=== PATIENT | female | born 1955 | race Caucasian/White ===

== ENCOUNTER → 2016-07-15 | Outpatient (CLI) | payer MEDICARE ==
[~2016-07-15] MED LIST: /CIPR75TA OR; /DULO30CA; /OMEP10CA; /WARF5TA; ACET65TA; AMOX500C OR; ASPI81TA45 OR; BISA10SU2; BISA5TA; CELE100C; CELE100C OR; CHLORTHALIDONE PO; CLAR5CHW; COZA50TA18; COZA50TA18 OR; CYMBALTA PO; DULO20CA PO; FAMO10TA5; FLONASE; FOLI1TAB; FOLI1TAB OR; GLIP5TAB2 OR; GLUC500T OR; IBUP600T PO; INSULANT SC; JANUVIA PO; LANTUS INSULIN SC; LIPI20TA OR; LISI10TA4; LORATADINE PO; MILKSUS; MUCINEX; OMEP20TA7 PO; PERC5TAB8; PERC7.5T8; PRED20TA; PRIL20CA; PROV90AE IN; TRAM50TA2; TRAM50TA2 OR; VICO5TAB OR; VICODIN PO; [UNRECOGNIZED DRUG - OTHER]; [UNRECOGNIZED DRUG - OTHER] PO; [UNRECOGNIZED DRUG - OTHER] PO
--- NOTE | 2016-07-16 05:24 | REP ---
Clinical: Mass. Comparison: 05/17/2008. Findings: Lung rodriguez demonstrate small subpleural areas of presumed chronic scarring primarily noted in the lateral right middle lobe and posterior basilar lower lobes along with mild bronchiectasis. No further significant consolidation, nodule or mass lesion appreciated. No pleural effusion/reaction or pneumothorax. The heart appears to be upper limits of normal and demonstrates atherosclerotic changes to the coronary arteries and thoracic aorta without aortic aneurysm or pericardial effusion. No axillary, hilar, or mediastinal adenopathy. Visualized portions of the thyroid gland are unremarkable. Bilateral thoracic inlet appear relatively normal. Surrounding musculoskeletal structures demonstrate age-related changes without focal osseous abnormality. Limited evaluation of the upper abdomen suggests prior splenectomy and 5 cm regenerative splenule less likely representing pancreatic tail mass. Impression: 1. Mild scattered chronic subpleural changes without acute mediastinal or pleuroparenchymal process. 2. Heart is upper limits of normal and demonstrates moderate atherosclerotic changes to the coronary arteries and thoracic aorta. 3. 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 Signed by Andrés Feliciano MD 07/16/2016 05:16 A
== END ==
LOC: M RAD 14:21
PROVIDERS: ATTEND Physician Assistant Medical
DX: R91.8 Other nonspecific abnormal finding of lung field (principal)

== ENCOUNTER → 2016-09-19 | Outpatient (CLI) | payer MEDICARE ==
[~2016-09-19] MED LIST changes: +ALBU17IN2 INH; +ASPI81TA85 PO; +CRES20TA PO; +GLIP10TA6 PO; +HUMA100I3 SC; +JARD1TAB PO; +METO12TA PO; +OMEP20TA PO; +TOUJ1.2I SC; +TRAM50TA2 PO
[2016-09-19 09:40] LABS: BASO % 0.4 % (0.0-1.0); EOS # 0.1 K/mm3 (0.0-0.50); EOS % 0.8 % (0.0-3.0); LYMPH # 2.7 K/mm3 (1.5-4.5); LYMPH % 20.8 % (24.0-44.0); MEAN CORPUSCULAR HEMOGLOBIN 31.7 pg (27.0-33.0); MEAN CORPUSCULAR HGB CONC 31.7 g/dl (32.0-36.5); MEAN CORPUSCULAR VOLUME 100.2 fl (80.0-96.0); MONO # 0.6 K/mm3 (0.0-0.8); MONO % 4.9 % (0.0-5.0); NEUTROPHILS # 9.4 K/mm3 (1.8-7.7); NEUTROPHILS % 71.3 % (36.0-66.0); RED CELL DISTRIBUTION WIDTH 14.4 % (11.5-14.5); WHITE BLOOD COUNT 13.1 K/mm3 (4.0-10.0)
[2016-09-19 09:50] LABS: ALBUMIN 3.5 GM/DL (3.2-5.2); ALBUMIN/GLOBULIN RATIO 1.06 (1.00-1.93); BILIRUBIN,TOTAL 0.6 MG/DL (0.2-1.0); CALCIUM LEVEL 8.7 MG/DL (8.8-10.2); CREATININE FOR GFR 1.12 MG/DL (0.55-1.02); GLOMERULAR FILTRATION RATE 52.5 (>45); POTASSIUM SERUM 4.3 MEQ/L (3.5-5.1); TOTAL PROTEIN 6.8 GM/DL (6.4-8.2)
== END ==
LOC: M LAB 08:42
PROVIDERS: ATTEND Physician Assistant Medical
DX: E11.9 Type 2 diabetes mellitus without complications (principal)

== ENCOUNTER → 2016-09-20 | Outpatient (CLI) | payer MEDICARE ==
[2016-09-20 10:59] LABS: MEAN CORPUSCULAR HEMOGLOBIN 31.8 pg (27.0-33.0); MEAN CORPUSCULAR HGB CONC 31.8 g/dl (32.0-36.5); MEAN CORPUSCULAR VOLUME 100.2 fl (80.0-96.0); RED CELL DISTRIBUTION WIDTH 14.5 % (11.5-14.5)
[2016-09-20 11:04] LABS: INR 0.94
--- NOTE | 2016-09-20 11:08 | REP ---
Clinical: Preoperative assessment. Diabetes . Comparison: 04/13/2015 . Technique: PA and lateral. Findings: The mediastinum and cardiac silhouette are normal. The lung rodriguez are clear and without acute consolidation, effusion, or pneumothorax. The skeletal structures are intact and normal. Impression: 1. No acute cardiopulmonary process. Signed by Andrés Feliciano MD 09/20/2016 10:59 A
[2016-09-20 11:25] LABS: ALBUMIN 3.7 GM/DL (3.2-5.2); ALBUMIN/GLOBULIN RATIO 1.12 (1.00-1.93); BILIRUBIN,TOTAL 0.6 MG/DL (0.2-1.0); CALCIUM LEVEL 8.6 MG/DL (8.8-10.2); CREATININE FOR GFR 1.14 MG/DL (0.55-1.02); GLOMERULAR FILTRATION RATE 51.4 (>45); POTASSIUM SERUM 4.1 MEQ/L (3.5-5.1)
--- NOTE | 2016-09-20 12:19 | ECGEPIP ---
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
== END ==
LOC: M ADMPAT 09:02
PROVIDERS: ATTEND Orthopaedic Surgery
DX: Z01.818 Encounter for other preprocedural examination (principal); M16.11 Unilateral primary osteoarthritis, right hip; E11.9 Type 2 diabetes mellitus without complications; Z79.01 Long term (current) use of anticoagulants; Z79.899 Other long term (current) drug therapy

== ENCOUNTER 2016-10-04 05:51 | Inpatient (IN) | payer MEDICARE ==
[2016-09-20 10:02] VITALS: BP 132/70
--- NOTE | 2016-09-26 18:32 | HPE ---
DATE OF ADMISSION: 10/04/2016 HISTORY OF PRESENT ILLNESS: This is a pleasant female with continuing symptomatic right hip osteoarthritis. She has consented for right total hip arthroplasty per Dr. Abelardo sherman. Medical optimization per Barbie Meier. X-rays are consistent with advanced osteoarthritis. No known drug allergies. MEDICATIONS LIST: Includes: - tramadol HCL 50 mg - [place] 05/325 mg - omeprazole - metoprolol - Cymbalta - Humalog quick pen 100 units per milliliter - Crestor 20 mg - Toujeo SoloStar 300 unit per milliliter -glipizide - jardiance - aspirin adult low dose 81 mg. MEDICAL PROBLEM LIST: Includes symptomatic right hip osteoarthritis, obesity, anxiety, depression, thyroid disease, type 2 diabetes. PAST SURGICAL HISTORY: Positive for section. Knee replacement. Total hysterectomy. FAMILY HISTORY: Positive for heart disease. Father at 61 due to heart attack. Mother diabetes and arthritis. SOCIAL HISTORY: The patient is a former smoker, quit three a half years ago. Denies ethanol intake or illicit drugs. REVIEW OF SYSTEMS: She denies chest pain, shortness breath, dyspnea on exertion, fever, chills, malaise, upper respiratory or urinary tract symptoms. PHYSICAL EXAMINATION: VITALS: Weight 204.8. Height 5' 1 1/4". Temperature 96.6. Pulse 76, respirations 20, BP 122/60. GENERAL: This is a pleasant obese white female in no acute distress. She is alert and oriented times three. Mood and affect are appropriate. She is ambulating slow steady without overt antalgia she does have a cane. Right hip range of motion is limited and irritable through internal and external hip range of motion. Normocephalic. NECK: Supple. Negative jugular venous distension (JVD) or bruits. LUNGS: Clear to auscultation. CHEST: Rises symmetrically. Regular rate and rhythm. ABDOMEN: Soft, nontender times four. EXTREMITIES: Lower extremities were inspected. Benign noninfectious looking. SKIN: Intact. EKG as read by Dr. Garcia shows sinus rhythm, possible inferior myocardial infarction, probably old borderline precordial voltage stable read by Dr. Garcia 09/20/2016. Chest x-ray date of exam 09/20/2016, read by Dr. Feliciano. No acute cardiopulmonary process. LABORATORY DATA: Urinalysis (UA) showed 2+ protein 3+, glucose 2+ blood, microscopic AUT 2+ bacteria. CBC white count was 11.0, MCV 100.2, MCHC 31.8. BUN 24, creatinine 1.14, anion gap 7, calcium 8.6. Urine culture showed greater than 100,000 CFU per milliliter Citrobacter freundii and the patient has been put on Bactrim per her primary care provider. Nasal and sinus culture showed normal flores present. IMPRESSION: 1. Symptomatic right hip osteoarthritis. 2. Patient consented for right total hip arthroplasty per Dr. Abelardo sherman. 3. Medical optimization per Whitney Meier and Dr. Jeremy Cerda. I am still awaiting documentation. 4. call specialist OR 2 grams IV Kefzol in OR. 5. SCD and TEDs in OR. 6. Patient will complete course of antibiotics for urinary tract infection (UTI) as prescribed by her primary care physician (PCP). My preceptor for this patient encounter was Dr. Abelardo Sherman. The preceptor was physically present in the building during the encounter and was fully available. As needed, all aspects of the patient interview, examination, medical decision making process, and medical care plan development were reviewed and approved by the preceptor. The preceptor is aware and concurs with the plan as stated in the body of this note and will attest to such by his/her cosignature.
[~2016-10-04] VITALS: Ht 152.4 cm; Wt 92.5 kg
[2016-10-04] MEDS ORDERED: LR 1,000 ML IV ONE (06:00)
[2016-10-04] MEDS ORDERED: LIDOCAINE 1% MDV 20ML VIAL SC ONE (06:00)
[2016-10-04] MEDS ORDERED: LR 1,000 ML IV SCH ×2 (06:15→10:00)
[2016-10-04] MEDS ORDERED: TRANEXAMIC ACID 100 MG/ML 10ML VIAL As Ordered ONE (06:16)
[2016-10-04] MEDS ORDERED: BUPIVACAINE HCL 0.25% 30 ML VIAL As Ordered ONE (06:16)
[2016-10-04] MEDS ORDERED: ceFAZolin 1GM INJ (J0690) As Ordered ONE (06:17)
[2016-10-04] MEDS ORDERED: EPINEPHrine INJ 1 MG/ML 1ML AMP As Ordered ONE (06:17)
[2016-10-04] MEDS ORDERED: COUM1TAB17 PO (06:38)
[2016-10-04] MEDS ORDERED: PROPOFOL 200 MG/20 ML VIAL As Ordered ONE (07:05)
[2016-10-04] MEDS ORDERED: fentaNYL 100 MCG/2 ML INJECTION (J3010) As Ordered ONE ×2 (07:05→07:49)
[2016-10-04] MEDS ORDERED: MIDAZOLAM INJ 2 MG/2 ML VIAL (J2250) As Ordered ONE (07:05)
[2016-10-04] MEDS ORDERED: LIDOCAINE 2% INJ 100 MG/5 ML SDV (FOR ANES.) As Ordered ONE (07:05)
[2016-10-04] MEDS ORDERED: ePHEDrine SULFATE 25 MG/5 ML(5MG/ML) SYRINGE As Ordered ONE ×3 (08:13→08:58)
[2016-10-04] MEDS ORDERED: GLYCOPYRROLATE INJ 0.2 MG/ML 2 ML VIAL As Ordered ONE (08:13)
[2016-10-04] MEDS ORDERED: PHENYLephrine HCL 500 MCG/5 ML (100MCG/ML) SYRINGE (J2370) As Ordered ONE (08:14)
[2016-10-04] MEDS ORDERED: GLUCAGON FOR INJ 1 MG VIAL (J1610) SC PRN (10:00)
[2016-10-04] MEDS ORDERED: fentaNYL 100 MCG/2 ML INJECTION (J3010) IV PRN (10:00)
[2016-10-04] MEDS: NS 1,000 ML IV SCH ×2 (10:00→21:13)
[2016-10-04] MEDS ORDERED: FLEET ENEMA PR PRN (10:00)
[2016-10-04] MEDS ORDERED: GLUCOSE 4 GM CHEW TABLET PO PRN (10:00)
[2016-10-04] MEDS ORDERED: ONDANSETRON 4MG/2ML VIAL (J2405) IV PRN ×2 (10:00)
[2016-10-04] MEDS ORDERED: PERCOCET 5MG/325MG TAB PO PRN (10:00)
[2016-10-04] MEDS ORDERED: DEXTROSE 50% 50 ML SYRINGE IV PRN (10:00)
--- NOTE | 2016-10-04 10:13 | IPN ---
DATE: 10/04/2016 Patient seen and examined this morning. She wishes to go ahead with a right total hip arthroplasty. She is having severe pain. She understands the nature of procedure, the risks of bleeding, infection, damage to nerves, vessels, persistent pain, wear loosening, dislocation, leg length inequality, blood clots, medical problems, and she wishes to proceed.
[2016-10-04] MEDS ORDERED: MORPHINE 1MG/ML IN 0.9% NACL 100ML IV BAG IV PRN (10:15)
[2016-10-04] MEDS ORDERED: diphenhydrAMINE INJ 50MG/ML VIAL (J1200) IV PRN (10:15)
[2016-10-04] MEDS ORDERED: NALOXONE INJ 0.4 MG/1 ML VIAL (J2310) IV PRN (10:15)
[2016-10-04] MEDS ORDERED: PATIENT IS CURRENTLY ON AN ON-Q PAIN BUSTER PAIN RELIEF SYSTEM XX SCH (10:15)
[2016-10-04] MEDS ORDERED: EPIDURAL/PCA KEYS XX PRN (10:15)
[2016-10-04] MEDS ORDERED: NALBUPHINE HCL 10 MG/ML AMP (J2300) IV PRN (10:15)
[2016-10-04 10:21] LABS: BASO % 0.4 % (0.0-1.0); EOS # 0.2 K/mm3 (0.0-0.50); EOS % 1.5 % (0.0-3.0); LARGE UNSTAINED CELL # 0.2 K/mm3 (0.0-0.4); LARGE UNSTAINED CELL % 1.5 % (0.0-4.0); LYMPH # 2.7 K/mm3 (1.5-4.5); MEAN CORPUSCULAR HEMOGLOBIN 31.7 pg (27.0-33.0); MEAN CORPUSCULAR HGB CONC 32.4 g/dl (32.0-36.5); MEAN CORPUSCULAR VOLUME 97.7 fl (80.0-96.0); MONO # 0.7 K/mm3 (0.0-0.8); MONO % 5.9 % (0.0-5.0); NEUTROPHILS # 8.5 K/mm3 (1.8-7.7); NEUTROPHILS % 68.8 % (36.0-66.0); PLATELET COUNT, AUTOMATED 348 k/mm3 (150-450); RED CELL DISTRIBUTION WIDTH 14.4 % (11.5-14.5); WHITE BLOOD COUNT 12.4 K/mm3 (4.0-10.0)
[2016-10-04 11:00] VITALS: BP 145/67
[2016-10-04 11:14] LABS: ALBUMIN 3.1 GM/DL (3.2-5.2); ALBUMIN/GLOBULIN RATIO 1.11 (1.00-1.93); BILIRUBIN,TOTAL 0.4 MG/DL (0.2-1.0); CALCIUM LEVEL 8.5 MG/DL (8.8-10.2); CREATININE FOR GFR 1.26 MG/DL (0.55-1.02); GLOMERULAR FILTRATION RATE 45.8 (>45); POTASSIUM SERUM 4.2 MEQ/L (3.5-5.1); TOTAL PROTEIN 5.9 GM/DL (6.4-8.2)
[2016-10-04 11:30] VITALS: BP 161/71
[2016-10-04] MEDS: HumaLOG INSULIN (NovoLOG) PER UNIT SC SCH ×3 (12:00→21:03)
[2016-10-04 12:30] VITALS: BP 130/59
--- NOTE | 2016-10-04 13:05 | CR.PDOC ---
[facility] Consultation Consultation DATE OF CONSULTATION: 10/04/16 PRIMARY CARE PHYSICIAN: EN Calvillo REFERRING PROVIDER: Nav Cuello ATTENDING PHYSICIAN: Dr. Chana Ellis REASON FOR CONSULTATION/CHIEF COMPLAINT: Status-post R total Hip Arthroplasty HISTORY OF PRESENT ILLNESS: This is a 61 year old female with a history of advanced osteoarthritis, hypertension, obesity, anxiety, depression, hypothyroidism and IDDM who is presenting after right total hip arthroplasty today 10/04/16 post operative day # 0. Her surgery was performed this morning by Dr. Abelardo Montanez and lasted until ~ 0945. She states she feels "groggy" and tired in the PACU but denies headache, dizziness, abdominal pain, nausea, vomiting, chest pain, shortness of breath, cough, runny nose, sore throat. Her only pain is her right hip which she rates as 4-5/10 in severity. There is no numbness or weakness in any of her extremities, swelling in her hands or feet or pain anywhere else. She offers no other acute complaints. Of note, she was treated for an asymptomatic UTI 2 weeks ago. Urine culture on 09/20/16 grew Citrobacter Freundii, but she denies any present back pain, dysuria, hematuria or diarrhea. HOME MEDICATIONS (see below for dosage and schedule): levothyroxine (recently increased to 175 mg PO daily) tramadol [place] 05/325mg omeprazole metoprolol Cymbalta Humalog Crestor Toujeo SoloStar glipizide jardiance ALLERGIES: Denies allergies to medicine, food or environment PAST MEDICAL HISTORY: R hip osteoarthritis R knee osteoarthritis hypertension obesity anxiety depression hypothyroidism insulin dependent type 2 diabetes mellitus Reportedly up to date on PAP smears, colonoscopies and mammograms Uses CPAP at home but is unsure of the settings. Does not use home supplemental oxygen. PAST SURGICAL HISTORY: R knee arthroplasty x1 total hysterectomy SOCIAL HISTORY: Former smoker with about a 60 pack x year history. Patient quit about 3.5 years ago. Reports history of ethanol socially but denies current EtOH use. Reports remote marijuana use but denies any illicit drug use recently. She is and lives alone with one kitten as a pet. She has had 3 pregnancies and has 3 adult children: two girls and one boy although none of them live locally. FAMILY HISTORY: Father: CAD. from [place]. Mother: Living but does not have frequent contact with patient. History of DM as well. ROS: All ROS negative except for those as stated above. PHYSICAL EXAMINATION: VS: T:97.5F BP:155/65 RR:20 P:60 O2 Saturation: 94% room air General: Pleasant, morbidly obese female lying in bed. Is calm and cooperative. In NAD. AAO x 3. Eating a popsicle. HEENT: Head: normocephalic, atraumatic. Ears: grossly normal hearing bilaterally. Eyes: sclera are nonicteric. Nose: No external lesions. Neck: Supple. No thyromegaly. No cervical LAD bilaterally. Respiratory: Clear to auscultation bilaterally with no wheezes, rales, or rhonchi. Chest: Symmetrical chest rise bilaterally. Cardiovascular: Sinus Bradycardia with no murmurs, rubs or gallops. Heart rate on monitor is showing 50 bpm. Abdomen: Obese. Soft, nontender, nondistended, no hepatosplenomegaly appreciated. Bowel sounds present. Extremities: No pedal edema Musculoskeletal: No drainage at bandage site of surgical site on R hip noted. Did not examine R hip with open bandage as patient just had operation. Able to wiggle her toes bilaterally. Good capillary refill in her toes. Neurological: No focal neurologic deficits appreciated bilaterally. Sensation grossly intact at the feet. Integumentary: skin free from rashes, lesions, abrasions Vascular: +2 radial and dorsalis pedis pulses palpable bilaterally. LABORATORY DATA: 10/04/16 CBC and CMP have been reviewed. CBC remarkable for WBC high at 12.4 RBC low at 3.89 Neut high at 68.8 lymph low at 22.0 [place] high at 5.9 CMP remarkable for Creatinine high at 1.26 Hgb A1c high at 7.4 Ca low at 8.5 albumin low at 3.1 total protein low at 5.9 TSH high at 6.230 MICROBIOLOGY: Urine Cx 09/20/16: Grew Citrobacter Freundii Micro Respiratory Specimen: normal flores ELECTROCARDIOGRAM 09/20/16 Sinus Rhythm. POSSIBLE INFERIOR MYOCARDIAL INFARCTION, PROBABLY OLD [facility] PRECORDIAL VOLTAGE STABLE C/W 04/13/15 Personally reviewed. RADIOLOGY: 09/20/16 CXR shows no acute cardiopulmonary process. ASSESSMENT: This is a 61 yo F who is presenting status-post R total hip arthroplasty post- operative day #0. The hospitalist service has been consulted for medical management of her chronic medical problems and to monitor her through recovery. PLAN: Status-post R Total Hip Arthroplasty for R Hip Osteoarthritis: Management with PT/OT, pain control, bowel regimen, and DVT ppx per primary team. Will continue to monitor for interventions as necessary. Will encourage incentive spirometer to prevent post-op pneumonia and atelectasis. HTN: Currently controlled on home medications. Resume home medications except for pain medications. Patient receiving IVF at this time. Will hold off on HTN medications until IVF are completed and BP is stable without IVF. We will make sure patient is tolerating diet prior to restarting antihypertensive meds. Will resume metoprolol when ready with hold parameters as specified: HR less than 70 and pressure less than 120 after BP stable and tolerating PO. Will evaluate/monitor for signs of LVH. Anxiety/Depression: continue cymbalta Hypothyroidism: TSH high at 6.230. May obtain Free T4 to determine if dosage of levothyroxine needs to be changed from 175 mg. Can continue levothyroxine on current dose for now. Insulin dependent type 2 diabetes mellitus: start ISS at AC and HS. Hold other diabetic medications for now. Continue rosuvastatin. Obesity: complicating management. Continue rosuvastatin. May obtain lipid panel. Continue home medications as indicated. DVT ppx: as per primary team. Immunizations as per protocol. CODE STATUS: DNR/DNI per patient. Has not signed MOLST. My preceptor for this patient encounter was Dr. Chana Ellis, and was physically present in the building during the encounter and was fully available. As needed, all aspects of the patient interview, examination, medical decision making process, and medical care plan development were reviewed and approved by the preceptor. Preceptor is aware and concurs with the plan as stated in the body of this note and will attest to such by his/her cosignature. Vital Signs/I&O Vital Signs Date Time Temp Pulse Resp B/P (MAP) Pulse Ox O2 Delivery O2 Flow Rate FiO2 10/04/16 12:30 97.1 52 16 130/59 (82) 92 Nasal Cannula 2.0 Laboratory Data Labs 24H Laboratory Tests 2 10/04/16 10:11: Bedside Glucose (Misc Panel) 75L 10/04/16 10:12: White Blood Count 12.4H, Red Blood Count 3.89L, Hemoglobin 12.3, Hematocrit 38.0 , Mean Corpuscular Volume 97.7H, Mean Corpuscular Hemoglobin 31.7, Mean Corpuscular Hemoglobin Concent 32.4, Red Cell Distribution Width 14.4, Platelet Count 348, Neutrophils (%) (Auto) 68.8H, Lymphocytes (%) (Auto) 22.0L, Monocytes (%) (Auto) 5.9H, Eosinophils (%) (Auto) 1.5, Basophils (%) (Auto) 0.4 , Neutrophils # (Auto) 8.5H, Lymphocytes # (Auto) 2.7, Monocytes # (Auto) 0.7, Eosinophils # (Auto) 0.2, Basophils # (Auto) 0.0, Large Unclassified Cells % 1.5 , Large Unclassified Cells # 0.2, Anion Gap 6L, Glomerular Filtration Rate 45.8 , Estimated Mean Plasma Glucose 166H, Hemoglobin A1c 7.4H, Blood Urea Nitrogen 17, Creatinine 1.26H, Sodium Level 144, Potassium Level 4.2, Chloride Level 107 , Carbon Dioxide Level 31, Calcium Level 8.5L, Aspartate Amino Transf (AST/SGOT ) 21, Alanine Aminotransferase (ALT/SGPT) 24, Alkaline Phosphatase 70, Total Bilirubin 0.4, Triglycerides Level 79, LDL Cholesterol 55.2, Total Protein 5.9L , Albumin 3.1L, Albumin/Globulin Ratio 1.11, Total Cholesterol 106, Non-HDL Cholesterol (LDL + VLDL) 71, Total HDL Cholesterol 35L, Cholesterol/HDL Ratio 3.028, Thyroid Stimulating Hormone (TSH) 6.230H 10/04/16 11:25: Bedside Glucose (Misc Panel) 68L CBC/BMP Laboratory Tests 10/04/16 06:04 10/04/16 10:12 Red Blood Count 3.89 L, Mean Corpuscular Volume 97.7 H, Mean Corpuscular Hemoglobin 31.7, Mean Corpuscular Hemoglobin Concent 32.4, Red Cell Distribution Width 14.4, Neutrophils (%) (Auto) 68.8 H, Lymphocytes (%) (Auto) 22.0 L, Monocytes (%) (Auto) 5.9 H, Eosinophils (%) (Auto) 1.5, Basophils (%) ( Auto) 0.4, Neutrophils # (Auto) 8.5 H, Lymphocytes # (Auto) 2.7, Monocytes # ( Auto) 0.7, Eosinophils # (Auto) 0.2, Basophils # (Auto) 0.0, Calcium Level 8.5 L , Aspartate Amino Transf (AST/SGOT) 21, Alanine Aminotransferase (ALT/SGPT) 24, Alkaline Phosphatase 70, Total Bilirubin 0.4, Triglycerides Level 79, LDL Cholesterol 55.2, Total Protein 5.9 L, Albumin 3.1 L Allergies Coded Allergies: No Known Drug Allergy (Verified Allergy, Unknown, 09/20/16) Home Medications Scheduled (Calvin Navarro) 300 Unit/Ml Inj, 70 UNIT SC BID, (Reported) Aspirin (Aspir-81) 81 Mg Tab, 81 MG PO DAILY, #30 (Reported) Empagliflozin (Jardiance) 10 Mg Tab, 10 MG PO DAILY, (Reported) Glipizide (Glipizide) 10 Mg Tab, 20 MG PO BID, (Reported) Insulin Human Lispro (Humalog) 100 Unit/Ml Inj, 45 UNITS SC TID, (Reported) Metoprolol Tartrate (Metoprolol Tartrate) 25 Mg Tab, 25 MG PO DAILY for 30 Days , #30 Omeprazole (Omeprazole) 20 Mg Tab, 20 MG PO DAILY, (Reported) Rosuvastatin Calcium (Crestor) 20 Mg Tab, 20 MG PO DAILY, (Reported) Warfarin Sod (Coumadin) 5 Mg Tab, 5 MG PO ONCE, (Reported) [Cymbalta] 20 TAB, 20 MG PO BID, (Reported) Scheduled PRN Albuterol Sulfate (Proventil Hfa) 167 Puff/6.7 Gm Aers, 2 PUFFS INH BIDP PRN for SHORTNESS OF BREATH, (Reported) Tramadol HCl (Tramadol HCl) 50 Mg Tab, 50 MG PO BID PRN for PAIN, (Reported) ARLEEN YODERME-1 Oct 04, 2016 13:04
[2016-10-04 13:30] VITALS: BP 115/53
[2016-10-04 14:30] VITALS: BP 129/59
[2016-10-04] MEDS ORDERED: WARFARIN SOD 5 MG TAB PO SCH (17:00)
[2016-10-04] MEDS ORDERED: METO12TA PO (18:49)
[2016-10-04] MEDS ORDERED: ALBUTEROL 90 MCG/ACT 8GM HFA INHALER INH PRN (19:15)
[2016-10-04] MEDS: ROSUVASTATIN 10 MG TAB (CRESTOR) PO SCH (21:01)
[2016-10-04] MEDS: OMEPRAZOLE 20 MG CAP PO SCH (21:02)
--- NOTE | 2016-10-04 21:06 | RO ---
DATE OF PROCEDURE: 10/04/2016 PREOPERATIVE DIAGNOSIS: Right hip osteoarthritis. POSTOPERATIVE DIAGNOSIS: Right hip osteoarthritis. PROCEDURE: Right total hip arthroplasty using a size 5 [place] standard offset with a 50 cup, 32 +1 ball. SURGEON: Dr. Abelardo Montanez MANAGER OF TRANSPORTATION: Nav Cuello ANESTHESIA: Spinal. ESTIMATED BLOOD LOSS: 200 mL. COMPLICATIONS: None. INDICATIONS: This is a 61-year-old obese woman who has had gradually worsening right hip pain that has been refractory to conservative management. She wished to go ahead with surgical treatment. She understood the nature of the procedure, the risks of bleeding, infection, damage to nerves, vessels, persistent pain, wear, loosening, dislocation, blood clots, medical problems, leg length inequality, among others. DESCRIPTION OF PROCEDURE: The patient was taken to operating room, placed in the supine position after spinal anesthesia was induced. We then turned her in the left lateral decubitus position on the [place] positioner in the usual fashion. We prepped and draped the right hip in the usual fashion. A time-out was performed. I then created a longitudinal incision over the lateral aspect the hip, controlled hemostasis with cautery and incised the fascia scarlett with the cautery and then exposed the abductors, which I divided the anterior 40% or so of the abductors off the anterior aspect of the femur and dissected down to the femoral neck and then split the labrum. We externally rotated the femur as we made this exposure. We were able to dislocate the hip without much difficulty with the engineer third assistant's help and put the leg in the bag. I used a canal initiating reamer, followed by the canal finding reamer and the lateralizing reamer and then sequentially reamed up to a size 5, which was consistent with our preoperative templating and had excellent fit with this reamer. I then cut the neck about a fingerbreadth up or less from the lesser trochanter and removed the ball. We then directed our attention to the acetabulum. Anterior and posterior retractors were placed. I removed the labrum and soft tissue from around the acetabulum and then sequentially reamed starting with a 43 and reamed up to a 49. I medialized it some and got good bleeding bone and good concentric reaming. I did remove some anterior osteophytes. Overall very pleased with this. I decided not to go any higher because I was concerned about the thickness of the anterior wall if I were to enlarge it. The wound and cup were irrigated. I then inserted the actual size 50 cup, impacted it in place with the alignment guide. It was in the appropriate amount of horizontal tilt and anteversion. We made sure it was well seated. I then placed the 32 x 50 liner, impacted this in place and made sure this was well seated. Irrigation was then performed. I then prepared the femur, and I was able to broach up to a size 5, which had an excellent fit. I did some trialing off this with the +1 and the +5 neck, standard offset and both had excellent stability. The 5 was a little tight in extension. I was able to minimally shuck the one in full extension and she had excellent stability in external rotation and extension and flexion internal rotation. Her thigh did impinge against her pannus at about 90 degrees. There were no remaining osteophytes that were impinging. Overall, I was very pleased with the position and stability of the components. I then removed the trial components, irrigated copiously, impacted the size 5 [place] stem, standard offset, seated down nicely and dried the taper, put the trial ball on again, the 1 and the 5 and decided to go with the 1. So the +1, 32 ball was impacted over a dry taper, and we reduced the hip with the engineer third assistant's help. I put the hip through range of motion. Excellent stability was noted. I irrigated copiously, closed the deep layer with #1 Vicryl, placed the TXA solution, repaired the abductor with #1 Vicryl suture, with a couple being placed through the bone and excellent repair was noted. I then repaired the fascia scarlett with interrupted #1 Vicryl suture and then the engineer third assistant and I closed it with a Stratafix suture, working in opposite directions. Watertight closure was performed. I irrigated copiously, closed the subcu with #2-0 Vicryl, skin with denton. I then inserted the PainBuster catheter just anterior to the wound and down along the neck. A little bit of blood from the joint came out, so I was satisfied with the position of this and fed in the catheter without difficulty. We primed it with 10 mL of Marcaine and then hooked it up and attached the skin in the usual fashion. Sterile dressing was applied. She was taken to recovery room in stable condition. There were no known complications. The plan will be routine postop. The engineer third assistant was instrumental in holding retractors and assisting in reducing and dislocating the hip, and assisting in wound closure.
[2016-10-04] MEDS: DULoxetine 20 MG CAP (CYMBALTA) PO SCH (21:13)
[2016-10-04 22:00] VITALS: BP 155/74
[2016-10-05] VITALS (7 sets, daily range): BP systolic 119–140; BP diastolic 53–66
[2016-10-05 06:10] LABS: MEAN CORPUSCULAR HEMOGLOBIN 31.4 pg (27.0-33.0); MEAN CORPUSCULAR HGB CONC 31.4 g/dl (32.0-36.5); MEAN CORPUSCULAR VOLUME 99.9 fl (80.0-96.0); RED CELL DISTRIBUTION WIDTH 14.3 % (11.5-14.5); WHITE BLOOD COUNT 19.5 K/mm3 (4.0-10.0)
[2016-10-05 06:17] LABS: INR 1.1
[2016-10-05] MEDS ORDERED: ONDANSETRON 4 MG TAB (S0181) PO PRN (07:45)
[2016-10-05] MEDS ORDERED: PERCOCET 5MG/325MG TAB PO PRN ×2 (07:45)
--- NOTE | 2016-10-05 08:33 | REP ---
Chest one-view HISTORY: Leukocytosis Comparison: 09/20/2016 The lungs are clear. The heart is normal in size. The pulmonary vasculature is normal in appearance. Impression: No acute disease. Signed by Gael Russell MD 10/05/2016 08:26 A
[2016-10-05 08:50] LABS: FREE T4 0.89 NG/DL (0.76-1.46)
[2016-10-05] MEDS: DULoxetine 20 MG CAP (CYMBALTA) PO SCH ×2 (09:00→21:13)
--- NOTE | 2016-10-05 09:41 | REP ---
AP/LATERAL RIGHT HIP, TWO VIEWS: HISTORY: Hip replacement. The patient is status post right total hip replacement. There is no acute fracture or dislocation. Surgical denton are present in the overlying soft tissue. IMPRESSION: The patient is status post right total hip replacement. There is anatomic alignment. Signed by Gael Russell MD 10/05/2016 09:47 A
[2016-10-05] MEDS: HumaLOG INSULIN (NovoLOG) PER UNIT SC SCH ×4 (09:58→21:00)
[2016-10-05] MEDS: MOM 30ML SUSPENSION UDC PO SCH (10:00)
[2016-10-05] MEDS: MIRALAX *UNIT DOSE* 17GM PACKET PO SCH (10:00)
[2016-10-05] MEDS: OMEPRAZOLE 20 MG CAP PO SCH (10:00)
[2016-10-05] MEDS: ROSUVASTATIN 10 MG TAB (CRESTOR) PO SCH (10:01)
[2016-10-05] MEDS: SENOKOT S TAB PO SCH ×2 (10:02→21:13)
[2016-10-05] MEDS: glipiZIDE 10 MG TAB PO SCH ×2 (10:02→21:16)
[2016-10-05] MEDS ORDERED: traMADol 50 MG TAB PO PRN ×2 (12:00)
[2016-10-05] MEDS: ACETAMINOPHEN TAB 650MG DOSE (2X325MG) PO PRN (12:09)
[2016-10-05] MEDS ORDERED: NORCO, ANEXSIA 5/325MG TABLET (HYDROcodone/ACETAMINOPHEN) PO PRN (15:30)
[2016-10-05] MEDS: NORCO, ANEXSIA 5/325MG TABLET (HYDROcodone/ACETAMINOPHEN) PO PRN ×2 (16:55→21:13)
[2016-10-05] MEDS ORDERED: WARFARIN SOD 5 MG TAB PO ONE (17:00)
[2016-10-06] MEDS: LEVOTHYROXINE 0.1 MG TAB (100 MCG) PO SCH (05:59)
[2016-10-06] MEDS: LEVOTHYROXINE 0.075 MG TAB (75 MCG) PO SCH (05:59)
[2016-10-06 06:00] VITALS: BP 140/64
[2016-10-06 06:07] LABS: BASO % 0.2 % (0.0-1.0); EOS # 0.2 K/mm3 (0.0-0.50); EOS % 1.2 % (0.0-3.0); LARGE UNSTAINED CELL # 0.2 K/mm3 (0.0-0.4); LARGE UNSTAINED CELL % 1.2 % (0.0-4.0); LYMPH # 1.7 K/mm3 (1.5-4.5); LYMPH % 9.2 % (24.0-44.0); MEAN CORPUSCULAR HEMOGLOBIN 31.6 pg (27.0-33.0); MEAN CORPUSCULAR HGB CONC 32.5 g/dl (32.0-36.5); MEAN CORPUSCULAR VOLUME 97.2 fl (80.0-96.0); MONO # 0.7 K/mm3 (0.0-0.8); MONO % 4.4 % (0.0-5.0); NEUTROPHILS % 83.8 % (36.0-66.0); PLATELET COUNT, AUTOMATED 285 k/mm3 (150-450); RED CELL DISTRIBUTION WIDTH 14.5 % (11.5-14.5); WHITE BLOOD COUNT 16.7 K/mm3 (4.0-10.0)
[2016-10-06 06:14] LABS: INR 1.26
[2016-10-06] MEDS: ACETAMINOPHEN TAB 650MG DOSE (2X325MG) PO PRN (06:33)
[2016-10-06 06:35] LABS: ANION GAP 7 MEQ/L (8-16); BLOOD UREA NITROGEN 14 MG/DL (7-18); CALCIUM LEVEL 8.5 MG/DL (8.8-10.2); CARBON DIOXIDE LEVEL 29 MEQ/L (21-32); CHLORIDE LEVEL 102 MEQ/L (98-107); CREATININE FOR GFR 0.89 MG/DL (0.55-1.02); GLOMERULAR FILTRATION RATE > 60.0 (>45); GLUCOSE, FASTING 146 MG/DL (80-110); POTASSIUM SERUM 3.8 MEQ/L (3.5-5.1); SODIUM LEVEL 138 MEQ/L (136-145)
[2016-10-06] MEDS: HumaLOG INSULIN (NovoLOG) PER UNIT SC SCH ×4 (07:30→21:00)
[2016-10-06] MEDS: MIRALAX *UNIT DOSE* 17GM PACKET PO SCH (09:00)
[2016-10-06] MEDS: MOM 30ML SUSPENSION UDC PO SCH (09:00)
[2016-10-06] MEDS: ROSUVASTATIN 10 MG TAB (CRESTOR) PO SCH (09:00)
[2016-10-06] MEDS: SENOKOT S TAB PO SCH ×2 (09:00→21:36)
[2016-10-06] MEDS: DULoxetine 20 MG CAP (CYMBALTA) PO SCH ×2 (09:00→21:36)
[2016-10-06] MEDS: glipiZIDE 10 MG TAB PO SCH ×2 (09:00→21:00)
[2016-10-06] MEDS: OMEPRAZOLE 20 MG CAP PO SCH (09:00)
[2016-10-06 14:00] VITALS: BP 149/67
[2016-10-06] MEDS ORDERED: WARFARIN SOD 5 MG TAB PO SCH (17:00)
[2016-10-06 18:07] VITALS: BP 134/76
[2016-10-06 22:00] VITALS: BP 152/64
[2016-10-07] MEDS: ACETAMINOPHEN TAB 650MG DOSE (2X325MG) PO PRN (01:59)
[2016-10-07 02:46] LABS: MEAN CORPUSCULAR HEMOGLOBIN 31.8 pg (27.0-33.0); MEAN CORPUSCULAR VOLUME 96.4 fl (80.0-96.0); RED CELL DISTRIBUTION WIDTH 14.5 % (11.5-14.5); WHITE BLOOD COUNT 16.5 K/mm3 (4.0-10.0)
[2016-10-07 02:52] LABS: INR 1.27
[2016-10-07 03:10] LABS: ALBUMIN 2.7 GM/DL (3.2-5.2); ALBUMIN/GLOBULIN RATIO 0.64 (1.00-1.93); ALKALINE PHOSPHATASE 72 U/L (45-117); ALT/SGPT 19 U/L (12-78); ANION GAP 8 MEQ/L (8-16); AST/SGOT 31 U/L (15-37); BILIRUBIN,TOTAL 1.2 MG/DL (0.2-1.0); BLOOD UREA NITROGEN 14 MG/DL (7-18); CALCIUM LEVEL 9.1 MG/DL (8.8-10.2); CARBON DIOXIDE LEVEL 28 MEQ/L (21-32); CHLORIDE LEVEL 100 MEQ/L (98-107); CREATININE FOR GFR 0.79 MG/DL (0.55-1.02); GLOMERULAR FILTRATION RATE > 60.0 (>45); GLUCOSE, FASTING 97 MG/DL (80-110); POTASSIUM SERUM 3.6 MEQ/L (3.5-5.1); SODIUM LEVEL 136 MEQ/L (136-145); TOTAL PROTEIN 6.9 GM/DL (6.4-8.2)
--- NOTE | 2016-10-07 03:10 | REPUSA ---
CLINICAL HISTORY: Delirium. COMMENTS: AP view of chest reveals no evidence of active pleural or pulmonary parenchymal abnormality. The cardiac silhouette is enlarged. The mediastinum and pulmonary vessels appear normal. Aorta is tor tuous. Degenerative changes are noted in the thoracic spine. IMPRESSION: No evidence of acute pulmonary pathology. Enlarged cardiac silhouette. Tortuous aorta. Thank you for your kind referral of this patient.
[2016-10-07 05:46] LABS: ABG BASE EXCESS -1.6 (-2.0-2.0); ABG HCO3 21.4 MEQ/L (22.0-26.0); ABG PARTIAL PRESSURE CO2 30.7 mmHg (35.0-45.0); ABG PARTIAL PRESSURE O2 73.3 mmHg (75.0-100.0); ABG STANDARD HCO3 23.1 MEQ/L (22.0-26.0); ABG TOTAL CO2 22.4 MEQ/L (23.0-31.0); ABG pH (ARTERIAL) 7.462 UNITS (7.350-7.450)
[2016-10-07] MEDS: LEVOTHYROXINE 0.1 MG TAB (100 MCG) PO SCH (05:48)
[2016-10-07] MEDS: LEVOTHYROXINE 0.075 MG TAB (75 MCG) PO SCH (05:48)
[2016-10-07 06:00] VITALS: BP 166/72
--- NOTE | 2016-10-07 06:30 | REPUSA ---
CLINICAL HISTORY: Delirium. TECHNIQUE: Multiple axial CT images were obtained through the brain without IV contrast material. COMMENTS: There is normal configuration of sella turcica. There are no intra or extra-axial collections. There is no mass effect or midline shift. There is no evidence of hematoma formation. No hydrocephalus is p resent. The ventricles are symmetrical. No abnormal calcifications are present. There is diffuse age-appropriate cerebellar and cerebral atrophy with proportionally dilated ventricl es and cortical sulci. There are bilateral periventricular and subcortical white matter hypolucencies compatible with mild c hronic microvascular disease. Otherwise, no significant focal abnormalities are seen either in the posterior fossa or supratentoria l compartment. IMPRESSION: 1. Age-appropriate cerebellar and cerebral atrophy. 2. Mild chronic microvascular disease. 3. No evidence of acute intracranial pathology. Thank you for your kind referral of this patient.
[2016-10-07] MEDS: HumaLOG INSULIN (NovoLOG) PER UNIT SC SCH ×4 (07:07→20:45)
[2016-10-07] MEDS ORDERED: ENOXAPARIN 40 MG/0.4 ML SYRINGE (J1650) SC ONE (07:45)
[2016-10-07] MEDS: glipiZIDE 10 MG TAB PO SCH ×2 (09:00→20:45)
[2016-10-07] MEDS: MOM 30ML SUSPENSION UDC PO SCH (10:07)
[2016-10-07] MEDS: DULoxetine 20 MG CAP (CYMBALTA) PO SCH ×2 (10:08→20:45)
[2016-10-07] MEDS: ROSUVASTATIN 10 MG TAB (CRESTOR) PO SCH (10:08)
[2016-10-07] MEDS: OMEPRAZOLE 20 MG CAP PO SCH (10:09)
[2016-10-07] MEDS: MIRALAX *UNIT DOSE* 17GM PACKET PO SCH (10:09)
[2016-10-07] MEDS: SENOKOT S TAB PO SCH ×2 (10:09→20:45)
[2016-10-07 14:00] VITALS: BP 168/70
[2016-10-07] MEDS ORDERED: WARFARIN SOD 7.5 MG TAB PO ONE (17:00)
[2016-10-07 22:00] VITALS: BP 137/62
[2016-10-08] MEDS: LEVOTHYROXINE 0.075 MG TAB (75 MCG) PO SCH (05:46)
[2016-10-08] MEDS: LEVOTHYROXINE 0.1 MG TAB (100 MCG) PO SCH (05:46)
[2016-10-08 06:00] VITALS: BP 163/73
[2016-10-08] MEDS ORDERED: LEVO100T5 PO (07:23)
[2016-10-08] MEDS ORDERED: LEVO75TA4 PO (07:23)
[2016-10-08] MEDS: HumaLOG INSULIN (NovoLOG) PER UNIT SC SCH (07:30)
[2016-10-08] MEDS ORDERED: COUM2.5T11 PO (07:34)
[2016-10-08] MEDS ORDERED: ENOXAPARIN 40 MG/0.4 ML SYRINGE (J1650) SC ONE (07:45)
[2016-10-08] MEDS: MIRALAX *UNIT DOSE* 17GM PACKET PO SCH (09:00)
[2016-10-08] MEDS: glipiZIDE 10 MG TAB PO SCH (09:00)
[2016-10-08] MEDS: MOM 30ML SUSPENSION UDC PO SCH (09:15)
[2016-10-08] MEDS: OMEPRAZOLE 20 MG CAP PO SCH (09:18)
[2016-10-08] MEDS: SENOKOT S TAB PO SCH (09:18)
[2016-10-08] MEDS: ROSUVASTATIN 10 MG TAB (CRESTOR) PO SCH (09:18)
[2016-10-08] MEDS: DULoxetine 20 MG CAP (CYMBALTA) PO SCH (10:31)
--- NOTE | 2016-10-10 10:18 | DSES ---
DATE OF ADMISSION: 10/04/2016 DATE OF DISCHARGE: 10/08/2016 DIAGNOSIS: Osteoarthritis right hip. OTHER DIAGNOSES: Hypertension. Anxiety. Depression. Hypothyroidism. Insulin-dependent diabetes as well as obesity. DISCHARGE DIAGNOSIS: Osteoarthritis right hip status post right total hip arthroplasty. OPERATION PERFORMED: Right total hip arthroplasty. HISTORY: This is a pleasant 61-year-old obese female patient with progressively worsening right hip pain and stiffness. She failed to improve with conservative management. She was admitted for elective hip replacement on the right side. HOSPITAL COURSE: The patient was admitted on day of surgery and underwent a right total hip arthroplasty which was uneventful. During the postoperative period, she did have some struggles with physical therapy to obtain the goals to be discharged but ultimately she was able to obtain the goals for discharge through physical therapy. Her pain was controlled. On day of discharge she was doing well, weightbearing as tolerated on the right lower extremity. She will use adjusted dose Coumadin and CONRAD stockings for 30 days postoperative for DVT prophylaxis. She will resume her preoperative medications and diet. She will use oral pain medications for pain control. She was given instructions to include but not limited to wound monitoring, activity limitations. She will follow up in our office in 10-14 days for surgical followup. Please refer to the medical record for further details. KETURAH
== END 2016-10-08 11:10 | disposition home health service (06) | DRG 470 ==
LOC: M OR 05:51 → M MS5PR 11:04
PROVIDERS: ADMIT Orthopaedic Surgery; ATTEND Orthopaedic Surgery
PROC: 0SR904A Replacement of Right Hip Joint with Ceramic on Polyethylene Synthetic Substitute, Uncemented, Open Approach (ICD-10-PCS; principal; 2016-10-04 07:30)
DX: M16.11 Unilateral primary osteoarthritis, right hip (principal); E66.9 Obesity, unspecified; E11.9 Type 2 diabetes mellitus without complications; F41.9 Anxiety disorder, unspecified; I10 Essential (primary) hypertension; Z66 Do not resuscitate; E03.9 Hypothyroidism, unspecified; F32.9 Major depressive disorder, single episode, unspecified; Z90.710 Acquired absence of both cervix and uterus; Z96.651 Presence of right artificial knee joint; Z82.49 Family history of ischemic heart disease and other diseases of the circulatory system; Z83.3 Family history of diabetes mellitus; Z82.61 Family history of arthritis; Z87.891 Personal history of nicotine dependence; Z79.82 Long term (current) use of aspirin; Z79.891 Long term (current) use of opiate analgesic; Z79.4 Long term (current) use of insulin; Z79.899 Other long term (current) drug therapy

== ENCOUNTER → 2016-10-10 | Outpatient (REF) | payer MEDICARE ==
[~2016-10-10] MED LIST changes: +COUM1TAB17 PO; +COUM2.5T11 PO; +LEVO100T5 PO; +LEVO75TA4 PO
[2016-10-10 16:31] LABS: INR 1.27
== END ==
LOC: M SHH 15:54
PROVIDERS: ATTEND Orthopaedic Surgery
DX: Z51.81 Encounter for therapeutic drug level monitoring (principal); Z79.01 Long term (current) use of anticoagulants

== ENCOUNTER → 2016-10-14 | Outpatient (REF) | payer MEDICARE ==
[2016-10-14 12:04] LABS: INR 1.36
== END ==
LOC: M SHH 11:12 → M LAB REF 11:12
PROVIDERS: ATTEND Nurse Practitioner Family
DX: Z51.81 Encounter for therapeutic drug level monitoring (principal); Z79.01 Long term (current) use of anticoagulants

== ENCOUNTER → 2016-10-17 | Outpatient (REF) | payer MEDICARE ==
[2016-10-17 14:10] LABS: INR 1.53
== END ==
LOC: M SHH 13:43
PROVIDERS: ATTEND Nurse Practitioner Family
DX: Z51.81 Encounter for therapeutic drug level monitoring (principal); Z79.01 Long term (current) use of anticoagulants

== ENCOUNTER → 2016-10-21 | Outpatient (REF) | payer MEDICARE ==
[2016-10-21 12:19] LABS: INR 1.31
== END ==
LOC: M LABDRAW1 11:58
PROVIDERS: ATTEND Orthopaedic Surgery
DX: Z51.81 Encounter for therapeutic drug level monitoring (principal); Z79.01 Long term (current) use of anticoagulants

== ENCOUNTER → 2016-10-24 | Outpatient (REF) | payer MEDICARE ==
[2016-10-24 14:53] LABS: INR 1.66
== END ==
LOC: M SHH 14:19
PROVIDERS: ATTEND Nurse Practitioner Family
DX: Z79.01 Long term (current) use of anticoagulants (principal)

== ENCOUNTER → 2016-10-28 | Outpatient (REF) | payer MEDICARE ==
[2016-10-28 11:20] LABS: INR 2.72
== END ==
LOC: M SHH 10:57
PROVIDERS: ATTEND Nurse Practitioner Family
DX: Z79.01 Long term (current) use of anticoagulants (principal)

== ENCOUNTER → 2016-10-31 | Outpatient (REF) | payer MEDICARE ==
[~2016-10-31] MED LIST changes: -COUM2.5T11 PO; +COUM2.5T17 PO; -METO12TA PO; +METO1TAB87 PO
[2016-10-31 16:14] LABS: INR 2.6
== END ==
LOC: M LAB REF 15:42
PROVIDERS: ATTEND Nurse Practitioner Family
DX: Z51.81 Encounter for therapeutic drug level monitoring (principal); Z79.01 Long term (current) use of anticoagulants

== ENCOUNTER → 2016-12-17 | Outpatient (CLI) | payer MEDICARE ==
[2016-12-17 08:51] LABS: BASO % 0.4 % (0.0-1.0); EOS # 0.2 K/mm3 (0.0-0.50); EOS % 1.4 % (0.0-3.0); LYMPH # 2.1 K/mm3 (1.5-4.5); LYMPH % 16.4 % (24.0-44.0); MEAN CORPUSCULAR HEMOGLOBIN 30.6 pg (27.0-33.0); MEAN CORPUSCULAR HGB CONC 30.5 g/dl (32.0-36.5); MEAN CORPUSCULAR VOLUME 100.3 fl (80.0-96.0); MONO # 0.8 K/mm3 (0.0-0.8); MONO % 7.1 % (0.0-5.0); NEUTROPHILS # 8.7 K/mm3 (1.8-7.7); NEUTROPHILS % 73.5 % (36.0-66.0); RED CELL DISTRIBUTION WIDTH 14.9 % (11.5-14.5); WHITE BLOOD COUNT 11.9 K/mm3 (4.0-10.0)
[2016-12-17 09:55] LABS: ALBUMIN 3.6 GM/DL (3.2-5.2); ALBUMIN/GLOBULIN RATIO 1.09 (1.00-1.93); BILIRUBIN,TOTAL 1.2 MG/DL (0.2-1.0); CALCIUM LEVEL 9.2 MG/DL (8.8-10.2); CREATININE FOR GFR 1.01 MG/DL (0.55-1.02); GLOMERULAR FILTRATION RATE 59.1 (>45); POTASSIUM SERUM 4.1 MEQ/L (3.5-5.1); TOTAL PROTEIN 6.9 GM/DL (6.4-8.2)
== END ==
LOC: M LAB 07:23
PROVIDERS: ATTEND Physician Assistant Medical
DX: E11.9 Type 2 diabetes mellitus without complications (principal)

== ENCOUNTER → 2017-01-17 | Outpatient (CLI) | payer MEDICARE ==
--- NOTE | 2017-01-17 10:46 | REP ---
Duplex carotid sonography: History: Carotid bruit. Comparison study: March 07, 2015. Findings: Antegrade flow was observed in both vertebral arteries. Right carotid: The right common carotid artery is unremarkable on two-dimensional scanning. There is mixed plaquing in the bulb and proximal ICA on two-dimensional scanning on the right side. Color flow and spectral Doppler interrogation are unremarkable however. Velocity chart right carotid: Right CCA PSV 66 cm/s Right ICA PSV 66 EDV 9 Right ECA PSV 104 Right ICA/CCA ratio normal 1.0. Impression: 16-49% category narrowing in the right ICA by Doppler velocity criteria. Normal waveforms and velocities. Left carotid: The left common carotid artery shows mild soft plaquing distally. There is mixed plaquing in the bulb and proximal ICA on two-dimensional scanning on the left side. Color flow and spectral Doppler interrogation are unremarkable on the left. Velocity chart left carotid: Left CCA PSV 90 cm/s Left ICA PSV 75 [place] 15 Left ECA PSV 128 Left ICA/CCA ratio normal 0.8. Impression: 16-49% category narrowing in the left ICA by Doppler velocity criteria. Doppler velocities have not increased in either internal carotid artery since the prior study. Signed by Tavares August MD 01/17/2017 02:47 P
== END ==
LOC: M RAD 08:36
PROVIDERS: ATTEND Physician Assistant Medical
DX: R09.89 Other specified symptoms and signs involving the circulatory and respiratory systems (principal)

== ENCOUNTER → 2017-03-25 | Outpatient (CLI) | payer MEDICARE ==
[2017-03-25 07:55] LABS: BASO # 0.1 10^3/uL (0.0-0.2); BASO % 0.5 % (0.0-1.0); EOS # 0.3 10^3/uL (0.0-0.50); EOS % 2.4 % (0.0-3.0); IMMATURE GRANULOCYTE % 0.4 % (0-0); LYMPH # 2.8 10^3/uL (1.5-4.5); MEAN CORPUSCULAR HEMOGLOBIN 32.7 pg (27.0-33.0); MEAN CORPUSCULAR HGB CONC 30.1 g/dl (32.0-36.5); MEAN CORPUSCULAR VOLUME 108.6 fl (80.0-96.0); MONO % 7.8 % (0.0-5.0); NEUTROPHILS # 8.4 10^3/uL (1.8-7.7); NEUTROPHILS % 66.9 % (36.0-66.0); PLATELET COUNT, AUTOMATED 354 10^3/uL (150-450); RED CELL DISTRIBUTION WIDTH 14.3 % (11.5-14.5); WHITE BLOOD COUNT 12.6 10^3/uL (4.0-10.0)
[2017-03-25 08:28] LABS: ALBUMIN 3.5 GM/DL (3.2-5.2); ALBUMIN/GLOBULIN RATIO 1.17 (1.00-1.93); BILIRUBIN,TOTAL 0.9 MG/DL (0.2-1.0); CALCIUM LEVEL 8.7 MG/DL (8.8-10.2); CREATININE FOR GFR 1.5 MG/DL (0.55-1.02); GLOMERULAR FILTRATION RATE 37.3 (>45); POTASSIUM SERUM 4.2 MEQ/L (3.5-5.1); TOTAL PROTEIN 6.5 GM/DL (6.4-8.2)
== END ==
LOC: M LAB 07:17
PROVIDERS: ATTEND Physician Assistant Medical
DX: E11.9 Type 2 diabetes mellitus without complications (principal)

== ENCOUNTER → 2017-05-30 | Outpatient (CLI) | payer MEDICARE ==
[2017-05-30 10:41] LABS: BASO # 0.1 10^3/uL (0.0-0.2); BASO % 0.7 % (0.0-1.0); EOS # 0.2 10^3/uL (0.0-0.50); EOS % 1.4 % (0.0-3.0); HEMATOCRIT 41.1 % (36.0-47.0); HEMOGLOBIN 12.5 g/dl (12.0-16.0); IMMATURE GRANULOCYTE # 0.1 10^3/uL (0-0); IMMATURE GRANULOCYTE % 0.4 % (0-0); LYMPH # 1.5 10^3/uL (1.5-4.5); LYMPH % 13.6 % (24.0-44.0); MEAN CORPUSCULAR HEMOGLOBIN 31.4 pg (27.0-33.0); MEAN CORPUSCULAR HGB CONC 30.4 g/dl (32.0-36.5); MEAN CORPUSCULAR VOLUME 103.3 fl (80.0-96.0); MONO # 0.7 10^3/uL (0.0-0.8); MONO % 6.5 % (0.0-5.0); NEUTROPHILS # 8.6 10^3/uL (1.8-7.7); NEUTROPHILS % 77.4 % (36.0-66.0); PLATELET COUNT, AUTOMATED 432 10^3/uL (150-450); RED BLOOD COUNT 3.98 10^6/uL (4.00-5.40); RED CELL DISTRIBUTION WIDTH 14.3 % (11.5-14.5); WHITE BLOOD COUNT 11.2 10^3/uL (4.0-10.0)
[2017-05-30 10:48] LABS: ANION GAP 8 MEQ/L (8-16); BLOOD UREA NITROGEN 29 MG/DL (7-18); CALCIUM LEVEL 8.8 MG/DL (8.8-10.2); CARBON DIOXIDE LEVEL 26 MEQ/L (21-32); CHLORIDE LEVEL 105 MEQ/L (98-107); CREATININE FOR GFR 1.28 MG/DL (0.55-1.02); FERRITIN 141 NG/ML (8-252); FREE T4 0.58 NG/DL (0.76-1.46); GLOMERULAR FILTRATION RATE 44.8 (>45); GLUCOSE, FASTING 232 MG/DL (70-100); IRON (FE) 69 UG/DL (50-170); POTASSIUM SERUM 4.1 MEQ/L (3.5-5.1); SODIUM LEVEL 139 MEQ/L (136-145); T UPTAKE 31 % (30-39)
[2017-05-30 10:55] LABS: VITAMIN B12 LEVEL 413 PG/ML
== END ==
LOC: M LAB 09:33
DX: E11.9 Type 2 diabetes mellitus without complications (principal); E03.9 Hypothyroidism, unspecified
CPT/HCPCS: 82746

== ENCOUNTER → 2017-06-19 | Outpatient (REF) | payer MEDICARE, MEDICAID ==
[2017-06-19 17:30] LABS: APPEARANCE, URINE HAZY (CLEAR); BACTERIA, URINE AUTO 2+ (NEGATIVE); BILIRUBIN, URINE AUTO NEGATIVE (NEGATIVE); BLOOD, URINE BLOOD NEGATIVE (NEGATIVE); COLOR, URINE YELLOW (YELLOW); GLUCOSE, URINE (UA) AUTO 3+ mg/dL (NEGATIVE); KETONE, URINE AUTO NEGATIVE (NEGATIVE); LEUKOCYTE ESTERASE, URINE AUTO 1+ (NEGATIVE); MUCUS, URINE SMALL (NEGATIVE); NITRITE, URINE AUTO NEGATIVE (NEGATIVE); PROTEIN, URINE AUTO 3+ mg/dL (NEGATIVE); RBC, URINE AUTO 4 /HPF (0-3); SPECIFIC GRAVITY URINE AUTO 1.029 (1.002-1.035); SQUAMOUS EPITHELIAL CELL UR AU 1 /HPF (0-6); UROBILINOGEN, URINE AUTO 0.2 mg/dL (0.0-2.0); WBC, URINE AUTO 33 /HPF (0-3)
== END ==
LOC: M LAB REF 16:38
DX: N39.0 Urinary tract infection, site not specified (principal)
CPT/HCPCS: 81001

== ENCOUNTER → 2017-09-26 | Outpatient (CLI) | payer MEDICARE ==
[2017-09-26 09:39] LABS: HEMATOCRIT 39.2 % (36.0-47.0); HEMOGLOBIN 12.2 g/dl (12.0-15.5); MEAN CORPUSCULAR HEMOGLOBIN 30.9 pg (27.0-33.0); MEAN CORPUSCULAR HGB CONC 31.1 g/dl (32.0-36.5); MEAN CORPUSCULAR VOLUME 99.2 fl (80.0-96.0); PLATELET COUNT, AUTOMATED 400 10^3/uL (150-450); RED BLOOD COUNT 3.95 10^6/uL (4.00-5.40); RED CELL DISTRIBUTION WIDTH 14.4 % (11.5-14.5); WHITE BLOOD COUNT 12.4 10^3/uL (4.0-10.0)
[2017-09-26 10:12] LABS: TOTAL 25(OH) VITAMIN D 41.7 NG/ML (30.0-100.0)
[2017-09-26 10:20] LABS: ALBUMIN 3.6 GM/DL (3.2-5.2); ALBUMIN/GLOBULIN RATIO 1.06 (1.00-1.93); ALKALINE PHOSPHATASE 64 U/L (45-117); ALT/SGPT 23 U/L (12-78); ANION GAP 7 MEQ/L (8-16); AST/SGOT 16 U/L (7-37); BILIRUBIN,TOTAL 0.9 MG/DL (0.2-1.0); BLOOD UREA NITROGEN 17 MG/DL (7-18); CALCIUM LEVEL 9.2 MG/DL (8.8-10.2); CARBON DIOXIDE LEVEL 30 MEQ/L (21-32); CHLORIDE LEVEL 107 MEQ/L (98-107); CHOLESTEROL LEVEL 105 MG/DL (<200); CREATININE FOR GFR 0.95 MG/DL (0.55-1.30); GLOMERULAR FILTRATION RATE > 60.0 (>45); GLUCOSE, FASTING 140 MG/DL (70-100); HDL CHOLESTEROL 50 MG/DL (>40); LDL CHOLESTEROL 31.4 MG/DL (<100); NON-HDL-C 55 MG/DL; POTASSIUM SERUM 4.6 MEQ/L (3.5-5.1); SODIUM LEVEL 144 MEQ/L (136-145); THYROID STIMULATING HORMONE 0.121 uIU/ML (0.358-3.740); TRIGLYCERIDES LEVEL 118 MG/DL (<150)
[2017-09-26 11:29] LABS: ESTIMATED AVERAGE GLUCOSE 206 MG/DL (60-110); HEMOGLOBIN A1c 8.8 %
== END ==
LOC: M LAB 08:20
DX: I10 Essential (primary) hypertension (principal); E11.9 Type 2 diabetes mellitus without complications; R53.83 Other fatigue
CPT/HCPCS: 84443

== ENCOUNTER → 2018-04-24 | Outpatient (CLI) | payer MEDICARE ==
[~2018-04-24] MED LIST changes: +BUPR1TAB53 PO; +DULO1CAP PO; +EZET10TA PO; +LEVO200T4 PO; +PROAAER10 INH
[2018-04-24 09:32] LABS: HEMATOCRIT 31.6 % (36.0-47.0); HEMOGLOBIN 9.4 g/dl (12.0-15.5); MEAN CORPUSCULAR HEMOGLOBIN 35.3 pg (27.0-33.0); MEAN CORPUSCULAR HGB CONC 29.7 g/dl (32.0-36.5); PLATELET COUNT, AUTOMATED 564 10^3/uL (150-450); RED BLOOD COUNT 2.66 10^6/uL (4.00-5.40); WHITE BLOOD COUNT 12.7 10^3/uL (4.0-10.0)
[2018-04-24 09:40] LABS: INR 0.99; PROTHROMBIN TIME 13.2 SECONDS (12.1-14.4)
[2018-04-24 09:47] LABS: MEAN CORPUSCULAR VOLUME 118.8 fl (80.0-96.0)
--- NOTE | 2018-04-24 10:58 | REP ---
Chest two views HISTORY: Preop Comparison: 10/07/2016 The lungs are clear. The cardiac silhouette is enlarged The pulmonary vasculature is normal in appearance. The bony structure is intact. IMPRESSION: Cardiomegaly. Electronically Signed by Gael Russell MD 04/24/2018 10:49 A
[2018-04-24 11:17] LABS: ALBUMIN 3.2 GM/DL (3.2-5.2); BILIRUBIN,TOTAL 1.6 MG/DL (0.2-1.0); CALCIUM LEVEL 8.7 MG/DL (8.8-10.2); CHOLESTEROL RISK RATIO 2.44 (<5); CREATININE FOR GFR 1.16 MG/DL (0.55-1.30); GLOMERULAR FILTRATION RATE 50.1 (>45); POTASSIUM SERUM 4.8 MEQ/L (3.5-5.1); THYROID STIMULATING HORMONE 0.941 uIU/ML (0.358-3.740); TOTAL PROTEIN 6.5 GM/DL (6.4-8.2)
--- NOTE | 2018-04-24 20:55 | ECGEPIP ---
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
[2018-04-26 09:53] LABS: ESTIMATED AVERAGE GLUCOSE 74 MG/DL (60-110)
[2018-04-26 09:55] LABS: HEMOGLOBIN A1c < 4.2 %
== END ==
LOC: M LAB 08:38
PROVIDERS: ATTEND Family Medicine
DX: Z01.818 Encounter for other preprocedural examination (principal); I10 Essential (primary) hypertension; E11.9 Type 2 diabetes mellitus without complications; I51.7 Cardiomegaly

== ENCOUNTER → 2018-07-02 | Outpatient (CLI) | payer MEDICARE ==
[~2018-07-02] MED LIST changes: +E-Z-GAS II EFFERVESCENT PACKET (SODIUM BICARB./CITRIC ACID/SIMETHICONE) As Ordered ONE; +E-Z-HD 98% w/w 340GM SUSP BTL As Ordered ONE; +E-Z-PAQUE 96% w/w SUSP 176GM BTL As Ordered ONE
--- NOTE | 2018-07-02 16:39 | REP ---
Upper GI air contrast The procedure was performed under the direct supervision of Dr. August. The images were reviewed with Dr. 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 The intestinal gas pattern is non-specific. The patient is status post right hip arthroplasty. There are vascular calcifications identified. Liquid barium and gas producing crystals were given in the erect position as well as liquid barium in the prone oblique position in order to perform a double contrast upper GI examination. The oral and pharyngeal stages of deglutition are unremarkable. Esophageal transport is prompt and efficient and there is no esophagitis, stricture or mucosal ring. There is a small sliding-type hiatal hernia. There is gastroesophageal reflux demonstrated to the level of the thoracic inlet. Within the stomach there are multiple sub centimeter polyps identified. The stomach is otherwise unremarkable. The duodenal pimentel are normally outlined . The mucosal folds are smooth and regular. There is no duodenitis pancreatitis peptic ulcer disease or neoplasm. There is a diverticulum in the second portion of the duodenum. The visualized portion of the proximal small bowel appears normal in course and caliber. Impression: 1. There is a small sliding-type hiatal hernia present. There is gastroesophageal reflux demonstrated to the level of the thoracic inlet. 2. There are multiple sub centimeter polyps in the stomach. 3. There is a diverticulum in the second portion of the duodenum. 1.2 minutes of fluoro time was utilized for this procedure. Reviewed by JUDI Hernandez 07/02/2018 03:38 P Electronically Signed by Tavares August MD 07/02/2018 04:29 P
== END ==
LOC: M RAD 09:18
PROVIDERS: ATTEND Family Medicine
DX: K27.9 Peptic ulcer, site unspecified, unspecified as acute or chronic, without hemorrhage or perforation (principal); K57.10 Diverticulosis of small intestine without perforation or abscess without bleeding; K31.7 Polyp of stomach and duodenum; K21.9 Gastro-esophageal reflux disease without esophagitis; K44.9 Diaphragmatic hernia without obstruction or gangrene; D64.9 Anemia, unspecified

== ENCOUNTER → 2018-08-12 | Outpatient (CLI) | payer MEDICARE ==
[~2018-08-12] MED LIST changes: -/DULO30CA; -/WARF5TA; +COUM1TAB17; -CRES20TA PO; +CRES20TA2 PO; +CYMB1CAP4 PO; +CYMB1CAP5; -DULO20CA PO; -E-Z-GAS II EFFERVESCENT PACKET (SODIUM BICARB./CITRIC ACID/SIMETHICONE) As Ordered ONE; -E-Z-HD 98% w/w 340GM SUSP BTL As Ordered ONE; -E-Z-PAQUE 96% w/w SUSP 176GM BTL As Ordered ONE
--- NOTE | 2018-08-12 11:45 | REPMRS ---
Patient History The patient states she has not had a clinical breast exam in over a year. No known family history of cancer. Digital Mammo Screening Bilat: August 12, 2018 - Exam #: [id number] Bilateral CC and MLO view(s) were taken. Technologist: Catalina Barillas, Technologist Prior study comparison: March 09, 2015, digital woman screen mammo, performed at [facility]. February 17, 2014, digital woman screen mammo, performed at [facility]. August 05, 2012, digital woman screen mammo, performed at [facility]. FINDINGS: There are scattered fibroglandular densities. There has been no change in the appearance of the mammogram from the prior studies. There is a mild amount of scattered fibroglandular density which is fairly symmetric. There is no interval development of dominant mass, architectural distortion, or clustered microcalcification suggestive of malignancy. 3-D tomosynthesis shows no additional findings. Assessment: BI-RADS/ACR category 1 mammogram. Negative Mammogram. Recommendation Routine screening mammogram of both breasts in 1 year (for women over age 40). This patient's Lifetime Breast Cancer RIsk is estimated at 6.2 %. This mammogram was interpreted with the aid of an FDA-approved computer-aided dectection system. Electronically Signed By: Nestor August MD 08/12/18 [id number]
== END ==
LOC: M RAD 09:15
PROVIDERS: ATTEND Family Medicine
DX: Z12.31 Encounter for screening mammogram for malignant neoplasm of breast (principal)

== ENCOUNTER → 2018-12-24 | Outpatient (CLI) | payer MEDICARE, MEDICAID ==
[~2018-12-24] MED LIST changes: -DULO1CAP PO; +DULO1CAP4 PO; -EZET10TA PO; +EZET10TA21 PO; +METO50TA7 PO; +OMEP10CASR PO
[2018-12-24 07:52] LABS: HEMATOCRIT 34.1 % (36.0-47.0); HEMOGLOBIN 10.1 g/dl (12.0-15.5); MEAN CORPUSCULAR HEMOGLOBIN 35.7 pg (27.0-33.0); MEAN CORPUSCULAR HGB CONC 29.6 g/dl (32.0-36.5); PLATELET COUNT, AUTOMATED 473 10^3/uL (150-450); RED BLOOD COUNT 2.83 10^6/uL (4.00-5.40)
[2018-12-24 08:00] LABS: MEAN CORPUSCULAR VOLUME 120.5 fl (80.0-96.0)
[2018-12-24 08:04] LABS: INR 0.93; PROTHROMBIN TIME 12.2 SECONDS (11.8-14.0)
[2018-12-24 08:18] LABS: ALBUMIN 3.7 GM/DL (3.2-5.2); BILIRUBIN,TOTAL 2.6 MG/DL (0.2-1.0); CALCIUM LEVEL 9.2 MG/DL (8.8-10.2); CREATININE FOR GFR 1.31 MG/DL (0.55-1.30); GLOMERULAR FILTRATION RATE 43.5 (>45); TOTAL PROTEIN 6.5 GM/DL (6.4-8.2)
[2018-12-24 08:20] LABS: ERYTHROCYTE SEDIMENTATION RATE 6 mm/hr (0-30)
--- NOTE | 2018-12-24 09:51 | REP ---
CHEST X-RAY: TWO VIEWS. HISTORY: Left hip arthritis. COMPARISON STUDY: April 24, 2018 FINDINGS: The lungs are symmetrically aerated and free of infiltrate. The heart is mildly enlarged. Pulmonary vasculature is not increased. Heart size is unchanged. Pleural angles are sharp. There are degenerative changes in the thoracic spine. Thoracic aorta is calcified. IMPRESSION: Mild cardiomegaly, unchanged. Otherwise, no acute cardiopulmonary disease. Electronically Signed by Tavares August MD 12/24/2018 04:26 P
--- NOTE | 2018-12-25 09:11 | ECGEPIP ---
[facility] Test Date: 2018-12-24 Pat Name: ELI RETANA Department: Room: - Gender: Female [employer]: IVELISSE : 1955 Requested By: Abelardo Montanez Order Number: [id number] Reading MD: Isabel Fleming Measurements Intervals [place] Rate: 61 P: 15 MI: 185 QRS: -2 QRSD: 100 T: 15 QT: 438 QTc: 444 Interpretive Statements SINUS RHYTHM COMPARED TO 04/24/18 THERE IS NO LONGER SUSPICION FOR OLD AWMI - LIKELY DUE TO LEAD PLACEMENT CHANGE Electronically Signed on 12-25-2018 9:11:39 EDT by Isabel Fleming
== END ==
LOC: M LAB 07:03
PROVIDERS: ATTEND Orthopaedic Surgery
DX: M16.12 Unilateral primary osteoarthritis, left hip (principal); I51.7 Cardiomegaly

== ENCOUNTER → 2019-01-11 | Outpatient (CLI) | payer MEDICARE, MEDICAID ==
--- NOTE | 2019-01-11 14:28 | REP ---
CT ABDOMEN PELVIS WITHOUT IV OR ORAL CONTRAST: HISTORY: Abdomen mass and jaundice. Question carcinoma of the pancreas. Comparison CT images are from January 30, 2008. CT FINDINGS: Digital preliminary professional sports scout radiograph demonstrates a prosthetic right hip. Bowel gas pattern is unremarkable. The lung bases are clear. The spleen is surgically absent, however there is a lobulated nodular soft tissue density in the left upper quadrant consistent with recurrent versus residual splenic tissue. This measures 7.6 x 4.8 x 5.0 cm. No focal hepatic lesion is seen. The liver is not felt to be enlarged. Pancreas is unremarkable. There is a descending duodenal diverticulum. No abnormality is noted in the gallbladder. No adrenal lesion is observed on either side. The kidneys showed no evidence of hydronephrosis, calculus, or mass. There are scattered normal-sized periaortic lymph nodes. No adenopathy. Vascular calcification is observed. There is left colonic diverticulosis without CT evidence of diverticulitis. A normal appendix is seen in the right lower quadrant. No abdominal wall defect is seen. There are degenerative changes in the visualized skeleton. 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 This is unchanged from chest CT images July 15, 2016. Left colonic diverticulosis without CT evidence of diverticulitis. Electronically Signed by Tavares August MD 01/11/2019 03:17 P
== END ==
LOC: M RAD 07:19
PROVIDERS: ATTEND Family Medicine
DX: D64.9 Anemia, unspecified (principal); R19.00 Intra-abdominal and pelvic swelling, mass and lump, unspecified site; R17 Unspecified jaundice; K57.50 Diverticulosis of both small and large intestine without perforation or abscess without bleeding; Z90.81 Acquired absence of spleen

== ENCOUNTER 2019-04-20 06:52 | Day surgery (SDC) | payer MEDICARE, MEDICAID ==
[~2019-04-20] VITALS: Ht 152.4 cm; Wt 75.7 kg
[~2019-04-20 06:52] MED LIST changes: +CARA1TAB6 PO; +OMEP-358 PO; -OMEP20TA PO; +OXYB5TAB10 PO
[2019-04-20] MEDS ORDERED: NS 1,000 ML IV ONE (07:00)
[2019-04-20] MEDS ORDERED: LIDOCAINE 2% INJ 100 MG/5 ML SDV (FOR ANES.) As Ordered ONE (08:35)
[2019-04-20] MEDS ORDERED: PROPOFOL 200 MG/20 ML VIAL As Ordered ONE ×3 (08:35→09:28)
--- NOTE | 2019-04-20 09:42 | ROOR ---
Patient Name: Loan Cho Procedure Date: 04/20/2019 8:51 AM Date of : 1955 Age: 64 Room: [facility] Gender: Female Note Status: Finalized Procedure: Upper GI endoscopy Indications: Follow-up of esophageal reflux Providers: Israel Castillo MD Referring MD: BHARATH CHATTERJEE MD Requesting Provider: Medicines: Monitored Anesthesia Care Complications: No immediate complications. Procedure: Pre-Anesthesia Assessment: - Prior to the procedure, a History and Physical was performed, and patient medications and allergies were reviewed. The patient is competent. The risks and benefits of the procedure and the sedation options and risks were discussed with the patient. All questions were answered and informed consent was obtained. Patient identification and proposed procedure were verified by the physician, the nurse and the anesthesiologist in the procedure room. Mental Status Examination: alert and oriented. Airway Examination: normal oropharyngeal airway and neck mobility. Prophylactic Antibiotics: The patient does not require prophylactic antibiotics. Prior Anticoagulants: The patient has taken no previous anticoagulant or antiplatelet agents. ASA Grade Assessment: III - A patient with severe systemic disease. After reviewing the risks and benefits, the patient was deemed in satisfactory condition to undergo the procedure. The anesthesia plan was to use monitored anesthesia care (MAC). Immediately prior to administration of medications, the patient was re-assessed for adequacy to receive sedatives. The heart rate, respiratory rate, oxygen saturations, blood pressure, adequacy of pulmonary ventilation, and response to care were monitored throughout the procedure. The physical status of the patient was re-assessed after the procedure. The Endoscope was introduced through the mouth, and advanced to the second part of duodenum. The upper GI endoscopy was accomplished without difficulty. The patient tolerated the procedure well. Findings: The Z-line was irregular. There were several small islands of irregular flat pink lining above the Z-line. No acute inflamation was seen. One 4 mm sessile polyp with no bleeding and no stigmata of recent bleeding was found on the greater curvature of the gastric body. Biopsies were taken with a cold forceps for histology. The polyp may have been completely resected. The first portion of the duodenum and second portion of the duodenum were normal. Impression: - Z-line irregular. - One gastric polyp. Biopsied. - Normal first portion of the duodenum and second portion of the duodenum. Recommendation: - Discharge patient to home. - Resume previous diet. - Continue present medications. - Await pathology results. - Return to nurse practitioner at appointment to be scheduled. Israel Castillo MD Israel Castillo MD 04/20/2019 9:41:27 AM Electronically signed by Israel Castillo MD Number of Addenda: 0 Note Initiated On: 04/20/2019 8:51 AM Estimated Blood Loss: Estimated blood loss was minimal.
--- NOTE | 2019-04-20 09:50 | ROOR ---
Patient Name: Loan Cho Procedure Date: 04/20/2019 8:52 AM Date of : 1955 Age: 64 Room: [facility] Gender: Female Note Status: Finalized Procedure: Colonoscopy Indications: Iron deficiency anemia Providers: Israel Castillo MD Referring MD: BHARATH CHATTERJEE MD Requesting Provider: Medicines: Monitored Anesthesia Care Complications: No immediate complications. Procedure: Pre-Anesthesia Assessment: - Prior to the procedure, a History and Physical was performed, and patient medications and allergies were reviewed. The patient is competent. The risks and benefits of the procedure and the sedation options and risks were discussed with the patient. All questions were answered and informed consent was obtained. Patient identification and proposed procedure were verified by the physician, the nurse and the anesthesiologist in the procedure room. Mental Status Examination: alert and oriented. Airway Examination: normal oropharyngeal airway and neck mobility. Prophylactic Antibiotics: The patient does not require prophylactic antibiotics. Prior Anticoagulants: The patient has taken no previous anticoagulant or antiplatelet agents. ASA Grade Assessment: III - A patient with severe systemic disease. After reviewing the risks and benefits, the patient was deemed in satisfactory condition to undergo the procedure. The anesthesia plan was to use monitored anesthesia care (MAC). Immediately prior to administration of medications, the patient was re-assessed for adequacy to receive sedatives. The heart rate, respiratory rate, oxygen saturations, blood pressure, adequacy of pulmonary ventilation, and response to care were monitored throughout the procedure. The physical status of the patient was re-assessed after the procedure. The Colonoscope was introduced through the anus with the intention of advancing to the cecum. The scope was advanced to the ascending colon before the procedure was aborted. Medications were given. The colonoscopy was somewhat difficult due to poor bowel prep. Successful completion of the procedure was aided by irrigation. The cecum and proximal ascending colon could not be examined. The patient tolerated the procedure well. Findings: The digital rectal exam findings include mushy stool at the anal orifice. Many large-mouthed diverticula were found in the sigmoid colon. A large amount of semi-solid stool was found in the proximal ascending colon, in the mid ascending colon and in the cecum, precluding visualization. The exam was otherwise without abnormality. Impression: - Mushy stool at the anal orifice. found on digital rectal exam. - Diverticulosis in the sigmoid colon. - Stool in the proximal ascending colon, in the mid ascending colon and in the cecum. - The examination was otherwise normal. - No specimens collected. Recommendation: - Discharge patient to home. - Resume previous diet. - Continue present medications. Israel Castillo MD Israel Castillo MD 04/20/2019 9:49:43 AM Electronically signed by Israel Castillo MD Number of Addenda: 0 Note Initiated On: 04/20/2019 8:52 AM Estimated Blood Loss: Estimated blood loss: none.
[2019-04-20 10:11] VITALS: BP 178/81
== END 2019-04-20 10:13 | disposition home or self-care (01) ==
LOC: M OPP 06:52
PROVIDERS: ATTEND Surgery
DX: D50.9 Iron deficiency anemia, unspecified (principal); K57.30 Diverticulosis of large intestine without perforation or abscess without bleeding; K21.9 Gastro-esophageal reflux disease without esophagitis; Z79.4 Long term (current) use of insulin; Z79.82 Long term (current) use of aspirin; Z79.899 Other long term (current) drug therapy; Z87.891 Personal history of nicotine dependence

== ENCOUNTER 2019-05-18 11:57 | Inpatient (IN) | payer MEDICAID, MEDICARE, OTHER ==
[~2019-05-18] VITALS: Ht 152.4 cm; Wt 79.5 kg
[2019-05-18] MEDS ORDERED: ROSU40TA4 PO (12:21)
[2019-05-18] MEDS ORDERED: NS 500 ML IV ONE (12:45)
[2019-05-18 12:54] LABS: BASO # 0.1 10^3/uL (0.0-0.2); BASO % 0.6 % (0.0-1.0); EOS # 0.2 10^3/uL (0.0-0.5); EOS % 2.2 % (0.0-3.0); HEMATOCRIT 29.9 % (36.0-47.0); HEMOGLOBIN 8.9 g/dl (12.0-15.5); LYMPH # 1.2 10^3/uL (1.5-5.0); LYMPH % 10.9 % (24.0-44.0); MEAN CORPUSCULAR HEMOGLOBIN 32.8 pg (27.0-33.0); MEAN CORPUSCULAR HGB CONC 29.8 g/dl (32.0-36.5); MEAN CORPUSCULAR VOLUME 110.3 fl (80.0-96.0); MONO # 0.8 10^3/uL (0.0-0.8); MONO % 7.2 % (0.0-5.0); NEUTROPHILS # 8.6 10^3/uL (1.5-8.5); NEUTROPHILS % 78.6 % (36.0-66.0); PLATELET COUNT, AUTOMATED 477 10^3/uL (150-450); RED BLOOD COUNT 2.71 10^6/uL (4.00-5.40); WHITE BLOOD COUNT 10.9 10^3/uL (4.0-10.0)
[2019-05-18 13:09] LABS: INR 1.06; PROTHROMBIN TIME 13.5 SECONDS (11.8-14.0)
[2019-05-18 13:10] LABS: PARTIAL THROMBOPLASTIN TIME 24.6 SECONDS (25.0-38.4)
[2019-05-18 13:33] LABS: ALBUMIN 3.5 GM/DL (3.2-5.2); BILIRUBIN,DIRECT 0.5 MG/DL (0.0-0.2); BILIRUBIN,TOTAL 1.4 MG/DL (0.2-1.0); CALCIUM LEVEL 8.3 MG/DL (8.8-10.2); CK-MB VALUE MASS 1.2 NG/ML (<3.6); CREATININE FOR GFR 1.72 MG/DL (0.55-1.30); FREE T4 0.88 NG/DL (0.76-1.46); GLOMERULAR FILTRATION RATE 31.7 (>45); MB/CK RELATIVE INDEX 3.33 (< OR =4); POTASSIUM SERUM 4.5 MEQ/L (3.5-5.1); THYROID STIMULATING HORMONE 0.678 uIU/ML (0.358-3.740); TOTAL PROTEIN 6.4 GM/DL (6.4-8.2); TROPONIN I 0.1 NG/ML (< 0.10)
--- NOTE | 2019-05-18 13:37 | REP ---
Chest x-ray: Two views. History: Cough and shortness of breath. Comparison chest x-ray: December 24, 2018. Findings: Monitoring electrodes are seen. There is moderate cardiac enlargement. Cardiothoracic ratio is 56.8%. This is unchanged from the comparison study. Pulmonary vasculature is cephalized. The pleural angles are sharp. No infiltrate is seen. There are degenerative changes in the thoracic spine. Some vascular calcification is noted. Impression: Moderate cardiac enlargement and pulmonary vascular cephalization. No evidence of pleural effusion or pulmonary edema. No focal infiltrate. Electronically Signed by Tavares August MD 05/18/2019 01:43 P
[2019-05-18] MEDS ORDERED: cefTRIAXone SOD 1 GM in D5W MINI-BAG PLUS 50 ML IV ONE (14:30)
[2019-05-18] MEDS ORDERED: JARD1TAB3 PO (14:55)
[2019-05-18] MEDS ORDERED: VALS1TAB66 PO (14:55)
[2019-05-18] MEDS ORDERED: OMEP-218 PO (14:55)
[2019-05-18] MEDS ORDERED: SUCR1TAB56 PO (14:55)
--- NOTE | 2019-05-18 17:37 | HPEPDOC ---
[facility] Medical History & Physical Date of Admission May 18, 2019 Date of Service: May 18, 2019 Primary Care Physician: Emery Izquierdo Attending Physician: NOE CALERO MD History and Physical CHIEF COMPLAINT: Generalized weakness HISTORY OF PRESENT ILLNESS: Loan (prefers to be called Summer) is a 64-year-old female with past medical history of chronic anemia (status post splenectomy), type 2 diabetes on insulin, hyperlipidemia, hypothyroidism, hypertension and GERD who presented to the emergency department this afternoon via EMS with the chief complaint of significant generalized weakness that began this morning. Around 11 AM this morning, as patient was preparing to eat lunch, she states she "couldn't lift [her] head." At this point, she called 911. Resting seems to help her symptoms, while sitting up/standing up seems to exacerbate them. She has accompanying one week history of rhinorrhea and nonproductive cough, as well as a few episodes of diarrhea beginning yesterday afternoon. Patient reports that she's never had weakness to this degree before. She denies any recent sick contacts, recent travel, changes in medication, and reports having received her yearly influenza vaccination. Patient denies hematemesis, coffee ground emesis, hemoptysis, hematochezia, melena, easy bleeding or easy bruising. In the emergency department, patient had positive initial orthostats and was given a 500 mL bolus, which subsequently improved her pressures. Lactic acid was 2.3, creatinine was 1.72 (baseline appears to be around 1), hemoglobin was 8.9 and hematocrit was 29.9. She was Hemoccult negative. Urinalysis was positive for UTI and she was started on IV Rocephin. EKG showed bradycardia and two-view chest x-ray showed moderate cardiomegaly with pulmonary vascular cephalization. There is no pulmonary embolism or pleural effusion, and no infiltrate was visualized. Hospitalist team was subsequently contacted and agreed to admit the patient to observation with telemetry. 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 Former smoker, quit 7 years ago after smoking 1.5 ppd for 40 years Does not currently drink alcohol and prior to that, only drank minimally Denies current or former illicit drug use FAMILY HISTORY: Heart disease, unspecified (father) Type 2 diabetes (mother) ALLERGIES: Please see below. REVIEW OF SYSTEMS: CONSTITUTIONAL: Endorses significant generalized weakness; denies fever, chills, night sweats, or recent unintentional change in weight HEENT: Endorses rhinorrhea, non-productive cough; denies diplopia, blurry vision, eye pain, ear pain or tinnitus denies headache, feeling lightheaded, dizziness, syncope CARDIOVASCULAR: Denies chest pain, chest pressure, or palpitations RESPIRATORY: Endorses moderate shortness of breath with nonproductive cough; denies pleuritic chest pain GASTROINTESTINAL: Endorses recent diarrhea; Denies abdominal pain, feeling nauseated, or vomiting. GENITOURINARY: Endorses increased urinary urgency; denies hematuria or dysuria. MUSCULOSKELETAL: Endorses generalized weakness and left hip pain NEUROLOGICAL: Denies headache, feeling lightheaded, dizziness, syncope ENDOCRINE: Endorses intermittent cold intolerance; denies heat intolerance HEMATOLOGIC/LYMPHATIC: Denies easy bleeding or bruising HOME MEDICATIONS: Please see below. PHYSICAL EXAMINATION: VITAL SIGNS: Please see below GENERAL APPEARANCE: Pleasant elderly female who appears stated age. She is resting comfortably, lying upright in bed. Well-nourished. In no apparent acute distress. HEENT: Normocephalic, atraumatic. Wearing prescription eyeglasses. Anicteric and noninjected sclera. Mild conjunctival pallor. PERRLA, EOMI., pink and dry mucous membranes. Upper dentures present. CARDIOVASCULAR: Bradycardic rate and regular rhythm., Normal S1, S2. No murmurs, rubs or clicks appreciated. Adequate capillary refill LUNGS: Clear to auscultation bilaterally, anteriorly and posteriorly. Mildly diminished tidal volume with symmetric chest expansion. No wheezes, crackles or rhonchi appreciated. Breathing on room air and speaking in full sentences. ABDOMEN: Mildly obese, soft, nontender, nondistended. Abdominal striae present.. Normoactive bowel sounds present throughout. No guarding or rigidity. No CVA tenderness. MUSCULOSKELETAL: 5/5 muscle strength testing of upper extremities bilaterally and right lower extremity. 4/5 muscle strength testing of left lower extremity. EXTREMITIES:, 2+ radial and posterior tibial pulses bilaterally. No lower extremity edema. NEUROLOGICAL: Awake, alert and oriented 3. Cranial nerves II through XII grossly intact. No focal deficits appreciated. Responds appropriately to questions and commands. PSYCHIATRIC: Affect and mood appear appropriate. LABORATORY DATA: See below. IMAGING: Two-view chest x-ray (05/18/19) moderate cardiac enlargement and pulmonary vascular cephalization. No evidence of pleural effusion or pulmonary edema. No local infiltrate. MICROBIOLOGY: Please see below. ASSESSMENT & PLAN: This is a 64-year-old female with history of chronic anemia (s/p splenectomy), type 2 diabetes on insulin, hypothyroidism, hypertension, hyperlipidemia, GERD and overactive bladder who presented by EMS to the emergency department on 05/18 with chief complaint of significant generalized weakness that began that morning. She reports it being difficult even lift her head. She had accompanying one week of rhinorrhea and nonproductive cough, with diarrhea for the last 2 days. In the emergency department, patient had positive orthostats and was subsequently given a 500 mL bolus, which improved her pressures. She is found to have a hemoglobin of 8.9 and hematocrit of 29.9, which were marginally decreased from her baseline. Creatinine was 1.72 (baseline around 1), lactic acid 2.3, Hemoccult negative, cardiac enzymes negative, and EKG showed bradycardia. Urinalysis showed presence of UTI and patient was started on IV Rocephin in the emergency department. Patient was then admitted by the hospitalist team to inpatient observation status with telemetry. #Sepsis evaluation -Secondary to UTI versus URI versus bacteremia -Leukocytosis and lactic acidosis with end organ damage (LILIANE) -1 L bolus ordered, with fluids running at 100 mL per hour to follow. 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 -CBC ordered for the morning -Reticulocyte count, iron panel, vitamin B12 ordered -Consider transfusion only when hemoglobin is less than 7 #Acute kidney injury -Creatinine currently 1.72 with baseline around 1 -Likely secondary to sepsis -I&O monitoring -Avoid nephrotoxic drugs -Renal sonogram ordered #Type 2 diabetes -Home medications held -Sliding-scale insulin with hypoglycemia protocol #Hypertension -Continue with home valsartan -Home 50 mg daily metoprolol tartrate held; 25 mg daily metoprolol tartrate ordered Vital Signs Vital Signs Date Time Temp Pulse Resp B/P (MAP) Pulse Ox O2 Delivery O2 Flow Rate FiO2 05/18/19 15:01 107 18 116/71 (86) 99 Room Air 05/18/19 14:31 98.8 Laboratory Data Labs 24H Laboratory Tests 2 05/18/19 12:33: Immature Granulocyte % (Auto) 0.5, Neutrophils (%) (Auto) 78.6H, Lymphocytes (%) (Auto) 10.9L, Monocytes (%) (Auto) 7.2H, Eosinophils (%) (Auto) 2.2, Basophils (%) (Auto) 0.6, Neutrophils # (Auto) 8.6H, Lymphocytes # (Auto) 1.2L, Monocytes # (Auto) 0.8, Eosinophils # (Auto) 0.2, Basophils # (Auto) 0.1, Nucleated Red Blood Cells % (auto) 0.0, Prothrombin Time 13.5, Prothromb Time International Ratio 1.06, Activated Partial Thromboplast Time 24.6L, Anion Gap 12, Glomerular Filtration Rate 31.7L, Calcium Level 8.3L, Total Bilirubin 1.4H, Direct Bilirubin 0.5H, Aspartate Amino Transf (AST/SGOT) 17, Alanine Aminotransferase (ALT/SGPT) 22, Alkaline Phosphatase 70, Total Creatine Kinase 36, Creatine Kinase MB 1.2, Creatine Kinase MB Relative Index 3.33, Troponin I 0.10, Total Protein 6.4, Albumin 3.5, Albumin/Globulin Ratio 1.21, Thyroid Stimulating Hormone (TSH) 0.678, Free Thyroxine 0.88 05/18/19 12:49: Lactic Acid Level 2.3*H 05/18/19 13:10: Urine Color TANISHA, Urine Appearance CLOUDYH, Urine pH 5.0, Urine Specific [place] 1.016, Urine Protein 2+H, Urine Glucose (UA) 3+H, Urine Ketones NEGATIVE, Urine Blood 1+H, Urine Nitrite NEGATIVE, Urine Bilirubin NEGATIVE, Urine Urobilinogen 0.2, Urine Leukocyte Esterase 3+H, Urine WBC (Auto) TNTCH, Urine RBC (Auto) 16H, Urine Hyaline Casts (Auto) 0, Urine Bacteria (Auto) 3+H, Urine Squamous Epithelial Cells 0, Urine Mucus (Auto) SMALL, Urine Sperm (Auto) CBC/BMP Laboratory Tests 05/18/19 12:33 Microbiology Microbiology 05/18/19 Urine Culture, Received Pending 05/18/19 Blood Culture, Received Pending 05/18/19 Blood Culture, Received Pending Home Medications Scheduled Aspirin (Aspir 81) 81 Mg Tab, 81 MG PO DAILY Bupropion HCl (Bupropion HCl Sr) 150 Mg Tab, 150 MG PO DAILY Empagliflozin (Jardiance) 25 Mg Tablet, 25 MG PO DAILY Ezetimibe (Ezetimibe) 10 Mg Tab, 10 MG PO DAILY Glipizide (Glipizide) 10 Mg Tab, 10 MG PO BID Insulin Lispro (Humalog) 100 Unit/Ml Inj, 1 DOSE SC AC PER SLIDING SCALE Levothyroxine Sodium (Levothyroxine Sodium) 200 Mcg Tab, 200 MCG PO DAILY Metoprolol Tartrate (Metoprolol Tartrate) 50 Mg Tablet, 50 MG PO DAILY Omeprazole (Omeprazole) 20 Mg Capsule.dr, 20 MG PO DAILY Oxybutynin Chloride (Oxybutynin Chloride) 5 Mg Tablet, 5 MG PO BID Rosuvastatin Calcium (Rosuvastatin Calcium) 40 Mg Tablet, 40 MG PO DAILY Sucralfate (Sucralfate) 1 Gm Tablet, 1 GM PO TID Valsartan (Valsartan) 80 Mg Tablet, 80 MG PO DAILY Scheduled PRN Albuterol Sulfate (Proair Hfa) 108 Mcg/Act Aer, 2 PUFF INH QID PRN for SHORTNESS OF BREATH Allergies Coded Allergies: oxycodone (Verified Adverse Reaction, Mild, confusion, 04/12/19) A-FIB/CHADSVASC A-FIB History Current/History of A-Fib/PAF?: No Current PO Anticoag Therapy: No (sequentials ordered) GME ATTESTATION GME ATTESTATION My faculty preceptor for this patient encounter was physically present during the encounter and was fully available. All aspects of the patient interview, examination, medical decision making process, and medical care plan development were reviewed and approved by the faculty preceptor. The faculty preceptor is aware and concurs with the plan as stated in the body of this note and will attest to such by his/her cosignature. ATTENDING NOTE Patient was seen and examined by me this morning with the residents. Agree with the above assessment and plan LUZ MARIA PEGUERO D.O. May 18, 2019 17:19 NOE CALERO MD May 19, 2019 11:28
[2019-05-18] MEDS ORDERED: ALBUTEROL 90 MCG/ACT 8GM HFA INHALER INH PRN (18:00)
[2019-05-18] MEDS ORDERED: NS 1,000 ML IV ONE (18:00)
[2019-05-18] MEDS ORDERED: HumaLOG INSULIN (NovoLOG) PER UNIT SC SCH (18:00)
[2019-05-18] MEDS ORDERED: GLUCOSE 4 GM CHEW TABLET PO PRN (18:15)
[2019-05-18] MEDS ORDERED: DEXTROSE 50% 50 ML SYRINGE IV PRN (18:15)
[2019-05-18] MEDS ORDERED: GLUCAGON FOR INJ 1 MG VIAL (J1610) SC PRN (18:15)
[2019-05-18] MEDS: AMPICILLIN SOD/SULBACTAM SOD 3 GM in D5W MINI-BAG PLUS 100 ML IV SCH (18:21)
[2019-05-18 18:34] LABS: THYROID STIMULATING HORMONE 0.516 uIU/ML (0.358-3.740)
[2019-05-18 18:37] LABS: FOLATE 11.9 NG/ML (>5.4)
[2019-05-18] MEDS: NS 1,000 ML IV SCH (19:00)
[2019-05-18] MEDS: HumaLOG INSULIN (NovoLOG) PER UNIT SC SCH (21:00)
[2019-05-18 21:20] VITALS: BP 156/44
[2019-05-18] MEDS: SUCRALFATE 1 GM TAB PO SCH (21:48)
[2019-05-18] MEDS: oxyBUTYnin 5 MG TAB PO SCH (21:48)
--- NOTE | 2019-05-18 21:58 | REPVR ---
PROCEDURE INFORMATION: Exam: US Retroperitoneal Limited, Kidneys Exam date and time: 05/18/19 (8:48pm) Age: 64 years old Clinical indication: Acute kidney injury. Abnormal kidney function lab tests. TECHNIQUE: Imaging protocol: Real-time ultrasound of the retroperitoneum with image documentation. Examination was focused on the kidneys. COMPARISON: CT ABDOMEN PELVIS of 01/11/19 FINDINGS: RIGHT KIDNEY --- The right kidney measures 12.8 cm in length. No hydronephrosis nor mass is noted. No upper tract stones are identified. LEFT KIDNEY --- The left kidney measures 12.5 cm in length. No hydronephrosis nor mass is noted. No upper tract stones are identified. IMPRESSION: No significant pathology. The kidneys are normal in size. No hydronephrosis. No renal mass is seen. Electronically signed by: Shelby Machuca On 05/18/2019 21:58:10 PM
[2019-05-19] MEDS: MIRTAZAPINE 7.5MG PER 1/2 TABLET PO SCH ×2 (01:59→21:59)
[2019-05-19] MEDS: AMPICILLIN SOD/SULBACTAM SOD 3 GM in D5W MINI-BAG PLUS 100 ML IV SCH ×2 (05:50→18:18)
[2019-05-19] MEDS: LEVOTHYROXINE 100MCG TABLET (0.1MG) PO SCH (05:50)
[2019-05-19 06:00] VITALS: BP 153/63
[2019-05-19 06:58] LABS: HEMATOCRIT 26.7 % (36.0-47.0); HEMOGLOBIN 7.6 g/dl (12.0-15.5); MEAN CORPUSCULAR HEMOGLOBIN 32.5 pg (27.0-33.0); MEAN CORPUSCULAR HGB CONC 28.5 g/dl (32.0-36.5); PLATELET COUNT, AUTOMATED 393 10^3/uL (150-450); RED BLOOD COUNT 2.34 10^6/uL (4.00-5.40)
[2019-05-19 07:00] LABS: MEAN CORPUSCULAR VOLUME 114.1 fl (80.0-96.0)
[2019-05-19 07:14] LABS: CREATININE FOR GFR 1.17 MG/DL (0.55-1.30); GLOMERULAR FILTRATION RATE 49.4 (>45); POTASSIUM SERUM 3.8 MEQ/L (3.5-5.1)
[2019-05-19] MEDS: NS 1,000 ML IV SCH (08:28)
[2019-05-19] MEDS: METOPROLOL TART 25 MG TABLET PO SCH (09:00)
[2019-05-19] MEDS: HumaLOG INSULIN (NovoLOG) PER UNIT SC SCH ×4 (09:41→21:00)
[2019-05-19] MEDS: oxyBUTYnin 5 MG TAB PO SCH ×2 (09:42→21:59)
[2019-05-19] MEDS: EZETIMIBE 10 MG TAB (ZETIA) PO SCH (09:42)
[2019-05-19] MEDS: SUCRALFATE 1 GM TAB PO SCH ×3 (09:42→22:00)
[2019-05-19] MEDS: ROSUVASTATIN 10 MG TAB (CRESTOR) PO SCH (09:43)
[2019-05-19] MEDS: buPROPion **SR TABLET** (ZYBAN) 150MG PO SCH (09:43)
[2019-05-19 10:00] VITALS: BP 143/56
--- NOTE | 2019-05-19 10:12 | ECGEPIP ---
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
[2019-05-19] MEDS: VALSARTAN 80 MG TAB (DIOVAN) PO SCH (10:31)
[2019-05-19 10:51] LABS: HEMATOCRIT 28.3 % (36.0-47.0); HEMOGLOBIN 8.1 g/dl (12.0-15.5)
--- NOTE | 2019-05-19 12:07 | IPNPDOC ---
Date Seen The patient was seen on 05/19/19. Progress Note SUBJECTIVE: Gabrielle was seen and examined this morning while lying upright in bed. She reports no adverse events overnight. Her strength has improved somewhat. She is ambulating to and from the bathroom with no significant issues. She is tolerating both liquid and solids. Patient denies headache, feeling lightheaded, dizziness, chest pain, chest pressure, palpitations, shortness of breath, abdominal pain, feeling nauseated, vomiting, numbness, or paresthesias at this time. OBJECTIVE PHYSICAL EXAMINATION: VITAL SIGNS: Please see below. GENERAL APPEARANCE: Pleasant elderly female who appears stated age. She is resting comfortably, lying upright in bed. Well-nourished. In no apparent acute distress. HEENT: Normocephalic, atraumatic. Anicteric and noninjected sclera. Mild conjunc tival pallor. PERRLA, EOMI. Moderate facial pallor. Upper dentures present. CARDIOVASCULAR: Bradycardic rate and regular rhythm. Normal S1, S2. No murmurs, rubs or clicks appreciated. LUNGS: Clear to auscultation bilaterally, anteriorly and posteriorly. Symmetric chest expansion. No wheezes, crackles or rhonchi appreciated. Breathing on room air and speaking in full sentences. ABDOMEN: Obese, soft, nontender, nondistended. Abdominal striae present. Normoactive bowel sounds present throughout. No guarding or rigidity. MUSCULOSKELETAL: 5/5 muscle strength testing of upper extremities bilaterally and right lower extremity. 4/5 muscle strength testing of left lower extremity. EXTREMITIES: 2+ radial and posterior tibial pulses bilaterally. No lower extremity edema. NEUROLOGICAL: Awake, alert and oriented 3. No focal neurologic deficits appreciated. Responds appropriately to questions and commands. PSYCHIATRIC: Affect and mood appear appropriate. LABORATORY DATA, IMAGING STUDIES, MICROBIOLOGY: Please see below. Renal ultrasound (retroperitoneal limited, kidneys), 05/18/19 no significant pathology. Kidneys were normal size with no hydronephrosis and no renal mass. ASSESSMENT AND PLAN: This is a 64-year-old female with history of chronic anemia (s/p splenectomy), type 2 diabetes on insulin, hypothyroidism, hypertension, hyperlipidemia, GERD and overactive bladder who presented via EMS to the emergency department on 05/18 with chief complaint of significant generalized wea kness that began that morning. She reported difficulty even lifting her head. She had accompanying one week of rhinorrhea and nonproductive cough, with diarrhea for the last 2 days. In the emergency department, patient had positive orthostats and was subsequently given a 500 mL bolus, which improved her pressures. She is found to have a hemoglobin of 8.9 and hematocrit of 29.9, which were marginally decreased from her baseline. Creatinine was 1.72 (baseline around 1), lactic acid 2.3, Hemoccult negative, cardiac enzymes negative, and EKG showed bradycardia. Urinalysis showed presence of UTI and patient was started on IV Rocephin in the emergency department. Patient was then admitted by the hospitalist team to inpatient observation status with telemetry. Patient started on IV Unasyn for antibiotic coverage pending culture results. Liter bolus given, followed by IV fluids overnight. LILIANE resolved morning of 05/19, and with patient's good oral intake, IV fluids were discontinued. WBC returned to normal limits and renal ultrasound showed no significant pathology. Continuing to trend H&H and identify an etiology for pt's anemia; autoimmune hemolytic anemia versus G6PD deficiency. #Sepsis evaluation, resolved -Likely secondary to UTI versus URI versus bacteremia -LILIANE and leukocytosis resolved -As patient demonstrated good oral intake, and LILIANE resolved, IV fluids discontinued -Lactic acid level returned to normal limits -2 sets of blood cultures still pending -IV Unasyn to cover for encapsulated organisms with patient s/p splenectomy -Viral URI profile pending -Influenza A and B pending -Atypical pneumonia work-up (Legionella, pneumococcus) pending #Generalized weakness, likely 2/2 sepsis and UTI -TSH and B12 levels within normal limits #Anemia -Currently is macrocytic hypochromic -Appears to be chronic anemia -Patient had splenectomy 2007, 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 After fluid administration -Renal ultrasound showed no acute pathology #Type 2 diabetes -Home medications held -Sliding-scale insulin with hypoglycemia protocol #Hypertension -Continue with home valsartan -Home 50 mg daily metoprolol tartrate held; 25 mg daily metoprolol tartrate was ordered instead, but held this morning due to patient's bradycardia #DVT prophylaxis: Knee-high sequentials ordered 05/18/19 DISPOSITION: Targeting discharge for tomorrow pending and H&H improvement/ stability and culture results VS, I&O, 24H, Fishbone Vital Signs/I&O Vital Signs Date Time Temp Pulse Resp B/P (MAP) Pulse Ox O2 Delivery O2 Flow Rate FiO2 05/19/19 10:31 143/56 05/19/19 10:00 55 05/19/19 06:00 96.9 16 93 Room Air I&O- Last 24 Hours up to 6 AM 05/19/19 05:59 Intake Total 2250 ml Output Total 400 ml Balance 1850 ml Laboratory Data 24H LABS Laboratory Tests 2 05/18/19 12:33: Immature Granulocyte % (Auto) 0.5, Neutrophils (%) (Auto) 78.6H, Lymphocytes (%) (Auto) 10.9L, Monocytes (%) (Auto) 7.2H, Eosinophils (%) (Auto) 2.2, Basophils (%) (Auto) 0.6, Neutrophils # (Auto) 8.6H, Lymphocytes # (Auto) 1.2L, Monocytes # (Auto) 0.8, Eosinophils # (Auto) 0.2, Basophils # (Auto) 0.1, Nucleated Red Blood Cells % (auto) 0.0, Prothrombin Time 13.5, Prothromb Time International Ratio 1.06, Activated Partial Thromboplast Time 24.6L, Anion Gap 12, Glomerular Filtration Rate 31.7L, Calcium Level 8.3L, Total Bilirubin 1.4H, Direct Bilirubin 0.5H, Aspartate Amino Transf (AST/SGOT) 17, Alanine Aminotransferase (ALT/SGPT) 22, Alkaline Phosphatase 70, Total Creatine Kinase 36, Creatine Kinase MB 1.2, Creatine Kinase MB Relative Index 3.33, Troponin I 0.10, Total Protein 6.4, Albumin 3.5, Albumin/Globulin Ratio 1.21, Thyroid Stimulating Hormone (TSH) 0.678, Free Thyroxine 0.88 05/18/19 12:49: Lactic Acid Level 2.3*H 05/18/19 13:10: Urine Color TANISHA, Urine Appearance CLOUDYH, Urine pH 5.0, Urine Specific [place] 1.016, Urine Protein 2+H, Urine Glucose (UA) 3+H, Urine Ketones NEGATIVE, Urine Blood 1+H, Urine Nitrite NEGATIVE, Urine Bilirubin NEGATIVE, Urine Urobilinogen 0.2, Urine Leukocyte Esterase 3+H, Urine WBC (Auto) TNTCH, Urine RBC (Auto) 16H, Urine Hyaline Casts (Auto) 0, Urine Bacteria (Auto) 3+H, Urine Squamous Epithelial Cells 0, Urine Mucus (Auto) SMALL, Urine Sperm (Auto) 05/18/19 17:38: Lactic Acid Followup at 4 Hours 1.2 05/18/19 17:43: 05/18/19 17:47: Reticulocyte # (auto) 143.1H, Percent Reticulocyte Count 5.3H, Reticulocyte Hemoglobin Equivalent 30.5, Iron Level 41L, Total Iron Binding Capacity 315, Transferrin % Saturation 13.0L, Ferritin 1079H, Vitamin B12 Level 615, Folate 11.9, Thyroid Stimulating Hormone (TSH) 0.516 05/18/19 18:25: Bedside Glucose (Misc Panel) 173H 05/19/19 06:29: Nucleated Red Blood Cells % (auto) 0.0, Differential Slide Review Report, Peripheral Blood Smear Path Consult PERIPHERAL SMEAR, Anion Gap 10, Glomerular Filtration Rate 49.4, Lactic Acid Level 0.8, Calcium Level 8.0L CBC/BMP Laboratory Tests 05/18/19 12:33 05/19/19 06:29 05/19/19 10:22 Microbiology Microbiology 05/18/19 Viral Culture, Received Pending 05/18/19 Urine Culture, Received Pending 05/18/19 Blood Culture, Received Pending 05/18/19 Blood Culture, Received Pending GME ATTESTATION GME ATTESTATION My faculty preceptor for this patient encounter was physically present during the encounter and was fully available. All aspects of the patient interview, examination, medical decision making process, and medical care plan development were reviewed and approved by the faculty preceptor. The faculty preceptor is aware and concurs with the plan as stated in the body of this note and will attest to such by his/her cosignature. ATTENDING NOTE Patient was seen and examined by me this morning with the residents. Agree with the above assessment and plan LUZ MARIA PEGUERO D.O. May 19, 2019 12:07 NOE CALERO MD May 20, 2019 10:59
[2019-05-19 14:00] VITALS: BP 122/93
[2019-05-19 22:00] VITALS: BP 137/48
[2019-05-19 22:09] LABS: HEMATOCRIT 27.2 % (36.0-47.0); HEMOGLOBIN 7.8 g/dl (12.0-15.5)
[2019-05-20 03:31] VITALS: O2SAT 91
[2019-05-20] MEDS: LEVOTHYROXINE 100MCG TABLET (0.1MG) PO SCH (05:54)
[2019-05-20] MEDS: AMPICILLIN SOD/SULBACTAM SOD 3 GM in D5W MINI-BAG PLUS 100 ML IV SCH (05:55)
[2019-05-20 06:00] VITALS: BP 146/44
[2019-05-20 08:27] LABS: CALCIUM LEVEL 8.4 MG/DL (8.8-10.2); CREATININE FOR GFR 1.12 MG/DL (0.55-1.30); POTASSIUM SERUM 3.7 MEQ/L (3.5-5.1)
[2019-05-20] MEDS: HumaLOG INSULIN (NovoLOG) PER UNIT SC SCH (08:53)
[2019-05-20] MEDS: METOPROLOL TART 25 MG TABLET PO SCH (09:00)
[2019-05-20] MEDS: ROSUVASTATIN 10 MG TAB (CRESTOR) PO SCH (09:02)
[2019-05-20] MEDS: buPROPion **SR TABLET** (ZYBAN) 150MG PO SCH (09:02)
[2019-05-20] MEDS: oxyBUTYnin 5 MG TAB PO SCH (09:02)
[2019-05-20 09:03] VITALS: BP 146/44
[2019-05-20] MEDS: EZETIMIBE 10 MG TAB (ZETIA) PO SCH (09:03)
[2019-05-20] MEDS: SUCRALFATE 1 GM TAB PO SCH (09:03)
[2019-05-20] MEDS: VALSARTAN 80 MG TAB (DIOVAN) PO SCH (09:03)
[2019-05-20 09:37] LABS: HEMATOCRIT 28.1 % (36.0-47.0)
[2019-05-20] MEDS ORDERED: CIPR500T3 PO (11:08)
--- NOTE | 2019-05-20 19:16 | DS.PDOC ---
Discharge Summary General Date of Admission May 19, 2019 at 10:56 Date of Discharge 05/20/2019 Primary Care Physician: LUZ MARIA PEGUERO D.O. Attending Physician: NOE CALERO MD Discharge Summary PROCEDURES PERFORMED DURING STAY: None ADMITTING DIAGNOSES: Anemia Generalize weakness DISCHARGE DIAGNOSES: Sepsis, resolved Generalize weakness, likely secondary to sepsis and UTI Macrocytic anemia with history of chronic hemolytic anemia Acute kidney injury, resolved Type 2 diabetes Hypertension COMPLICATIONS/CHIEF COMPLAINT: Anemia. HISTORY OF PRESENT ILLNESS & HOSPITAL COURSE: Loan (prefers to be called Summer) is a 64-year-old female with past medical history of chronic anemia (status post splenectomy), type 2 diabetes on insulin, hyperlipidemia, hypothyroidism, hypertension and GERD who presented to the emergency department this afternoon via EMS with the chief complaint of significant generalized weakness that began this morning. Around 11 AM this morning, as patient was preparing to eat lunch, she states she "couldn't lift [her] head." At this point, she called 911. Resting seems to help her symptoms, while sitting up/standing up seems to exacerbate them. She has accompanying one week history of rhinorrhea and nonproductive cough, as well as a few episodes of diarrhea beginning yesterday afternoon. Patient reports that she's never had weakness to this degree before. She denies any recent sick contacts, recent travel, changes in medication, and reports having received her yearly influenza vaccination. Patient denied hematemesis, coffee ground emesis, hemoptysis, hematochezia, melena, easy bleeding or easy bruising. At time of presentation. In the emergency department, patient had positive initial orthostats and was given a 500 mL bolus, which subsequently improved her pressures. Lactic acid was 2.3, creatinine was 1.72 (baseline appears to be around 1), hemoglobin was 8.9 and hematocrit was 29.9. She was Hemoccult negative. Urinalysis was positive for UTI and she was started on IV Rocephin. EKG showed bradycardia and two-view chest x-ray showed moderate cardiomegaly with pulmonary vascular cephalization. There is no pulmonary embolism or pleural effusion, and no infiltrate was visualized. Hospitalist team was subsequently contacted and agreed to admit the patient to observation with telemetry. Patient started on IV Unasyn for antibiotic coverage pending culture results. Liter bolus given, followed by IV fluids overnight. LILIANE resolved morning of 05/19, and with patient's good oral intake, IV fluids were discontinued. WBC returned to normal limits and renal ultrasound showed no significant pathology. Continuing to trend H&H and identify an etiology for pt's anemia; autoimmune hemolytic anemia versus G6PD deficiency. On review of patient's records, it appears that patient had been worked up in 2007 for likely hemolytic anemia with hematology (Dr. Leigh). Patient's urine reflex culture grew Klebsiella pneumoniae. Patient was subsequently discharged on 5 days of ciprofloxacin 500 mg bid. Patient's energy level improved throughout inpatient stay. Patient was subsequently discharged home on 05/20. DISCHARGE MEDICATIONS: Please see below. ALLERGIES: Please see below. PHYSICAL EXAMINATION ON DISCHARGE: VITAL SIGNS: Please see below. GENERAL APPEARANCE: Pleasant elderly female who appears stated age. She is resting comfortably, lying upright in bed. Well-nourished. In no apparent acute distress. HEENT: Normocephalic, atraumatic. Anicteric and noninjected sclera. Mild conjun ctival pallor. PERRLA, EOMI. Moderate facial pallor. Upper dentures present. CARDIOVASCULAR: Bradycardic rate and regular rhythm. Normal S1, S2. No murmurs, rubs or clicks appreciated. LUNGS: Clear to auscultation bilaterally, anteriorly and posteriorly. Symmetric chest expansion. No wheezes, crackles or rhonchi appreciated. Breathing on room air and speaking in full sentences. ABDOMEN: Obese, soft, nontender, nondistended. Abdominal striae present. Normoactive bowel sounds present throughout. No guarding or rigidity. MUSCULOSKELETAL: 5/5 muscle strength testing of upper extremities bilaterally and right lower extremity. 4/5 muscle strength testing of left lower extremity. EXTREMITIES: 2+ radial and posterior tibial pulses bilaterally. No lower extremity edema. NEUROLOGICAL: Awake, alert and oriented 3. No focal neurologic deficits appreciated. Responds appropriately to questions and commands. PSYCHIATRIC: Affect and mood appear appropriate. LABORATORY DATA: Please see below. IMAGING: Two-view chest x-ray, 05/18/2015: Moderate cardiac enlargement and pulmonary vascular cephalization. No evidence of pleural effusion or pulmonary edema. No focal infiltrate. Ultrasound retroperitoneal limited, kidneys, 05/18/2015: No significant pathology. The kidneys are normal in size. No hydronephrosis. No renal masses seen. PROGNOSIS: Good ACTIVITY: As tolerated DIET: As tolerated DISPOSITION: 01 Home, Self-Care. DISCHARGE INSTRUCTIONS & ITEMS TO FOLLOWUP ON ON OUTPATIENT: -Patient is to establish with a new primary care physician next one to 2 weeks; patient was given referral to [facility] and Dr. Herbert Peguero for primary care -Patient is to take discharge medication ciprofloxacin as instructed -If presenting symptoms should recur/acutely worsen, or patient should experience an acute medical emergency of any kind, she is to seek immediate medical care DISCHARGE CONDITION: Stable TIME SPENT ON DISCHARGE: Total time spent on discharge including coordination of care, review of chart documentation, and actual patient contact was greater than 35 minutes. Vital Signs/I&Os Vital Signs Date Time Temp Pulse Resp B/P (MAP) Pulse Ox O2 Delivery O2 Flow Rate FiO2 05/20/19 09:03 146/44 05/20/19 06:00 97.8 57 17 96 Room Air I&O- Last 24 Hours up to 6 AM 05/20/19 06:00 Intake Total 1945 ml Output Total 2550 ml Balance -605 ml Laboratory Data Labs 24H Laboratory Tests 2 05/19/19 20:31: Bedside Glucose (Misc Panel) 124H 05/20/19 06:04: Bedside Glucose (Misc Panel) 126H 05/20/19 07:46: Anion Gap 7L, Glomerular Filtration Rate 52.0, Calcium Level 8.4L CBC/BMP Laboratory Tests 05/19/19 22:02 05/20/19 07:46 FSBS Laboratory Tests Test 05/19/19 20:31 05/20/19 06:04 Range/Units Bedside Glucose (Misc Panel) 124 126 80-115 MG/DL Microbiology Microbiology 05/18/19 Viral Culture, Received Pending 05/18/19 Urine Culture - Final, Complete Klebsiella Pneumoniae 05/18/19 Blood Culture - Preliminary, Resulted No Growth after 48 hours. All Specime... 05/18/19 Blood Culture - Preliminary, Resulted No Growth after 48 hours. All Specime... Discharge Medications Scheduled Aspirin (Aspir 81) 81 Mg Tab, 81 MG PO DAILY, (Reported) Bupropion HCl (Bupropion HCl Sr) 150 Mg Tab, 150 MG PO DAILY, (Reported) Ciprofloxacin HCl (Ciprofloxacin HCl) 500 Mg Tablet, 500 MG PO BID Empagliflozin (Jardiance) 25 Mg Tablet, 25 MG PO DAILY, (Reported) Ezetimibe (Ezetimibe) 10 Mg Tab, 10 MG PO DAILY, (Reported) Glipizide (Glipizide) 10 Mg Tab, 10 MG PO BID, (Reported) Insulin Lispro (Humalog) 100 Unit/Ml Inj, 1 DOSE SC AC, (Reported) PER SLIDING SCALE Levothyroxine Sodium (Levothyroxine Sodium) 200 Mcg Tab, 200 MCG PO DAILY, (Reported) Metoprolol Tartrate (Metoprolol Tartrate) 50 Mg Tablet, 50 MG PO DAILY, (Reported) Omeprazole (Omeprazole) 20 Mg Capsule.dr, 20 MG PO DAILY, (Reported) Oxybutynin Chloride (Oxybutynin Chloride) 5 Mg Tablet, 5 MG PO BID, (Reported) Rosuvastatin Calcium (Rosuvastatin Calcium) 40 Mg Tablet, 40 MG PO DAILY, (Reported) Sucralfate (Sucralfate) 1 Gm Tablet, 1 GM PO TID, (Reported) Valsartan (Valsartan) 80 Mg Tablet, 80 MG PO DAILY, (Reported) Scheduled PRN Albuterol Sulfate (Proair Hfa) 108 Mcg/Act Aer, 2 PUFF INH QID PRN for SHORTNESS OF BREATH, (Reported) Allergies Coded Allergies: oxycodone (Verified Adverse Reaction, Mild, confusion, 04/12/19) GME ATTESTATION GME ATTESTATION My faculty preceptor for this patient encounter was physically present during the encounter and was fully available. All aspects of the patient interview, examination, medical decision making process, and medical care plan development were reviewed and approved by the faculty preceptor. The faculty preceptor is aware and concurs with the plan as stated in the body of this note and will attest to such by his/her cosignature. ATTENDING NOTE Patient was seen and examined by me this morning with the residents. Agree with the above assessment and plan LUZ MARIA PEGUERO D.O. May 20, 2019 19:16 NOE CALERO MD May 21, 2019 10:42
[2019-06-02 00:06] LABS: INFLUENZA A VIRUS TITER 1:32 (Neg:<1:8); INFLUENZA B VIRUS TITER 1:32 (Neg:<1:8); L. PNEUMOPHILA (1,3,4,5,6,8) <0.91 OD ratio (0.00-0.90); PNEUMOCOCCAL AB TYPE 1 0.9 ug/mL (>1.3); PNEUMOCOCCAL AB TYPE 12 0.4 ug/mL (>1.3); PNEUMOCOCCAL AB TYPE 14 7.3 ug/mL (>1.3); PNEUMOCOCCAL AB TYPE 17 1.6 ug/mL (>1.3); PNEUMOCOCCAL AB TYPE 19 3.8 ug/mL (>1.3); PNEUMOCOCCAL AB TYPE 2 1.1 ug/mL (>1.3); PNEUMOCOCCAL AB TYPE 20 1.2 ug/mL (>1.3); PNEUMOCOCCAL AB TYPE 22 0.6 ug/mL (>1.3); PNEUMOCOCCAL AB TYPE 23 0.1 ug/mL (>1.3); PNEUMOCOCCAL AB TYPE 26 19.4 ug/mL (>1.3); PNEUMOCOCCAL AB TYPE 3 9.3 ug/mL (>1.3); PNEUMOCOCCAL AB TYPE 34 4.6 ug/mL (>1.3); PNEUMOCOCCAL AB TYPE 4 0.8 ug/mL (>1.3); PNEUMOCOCCAL AB TYPE 43 1.1 ug/mL (>1.3); PNEUMOCOCCAL AB TYPE 5 3.4 ug/mL (>1.3); PNEUMOCOCCAL AB TYPE 51 1.3 ug/mL (>1.3); PNEUMOCOCCAL AB TYPE 54 0.6 ug/mL (>1.3); PNEUMOCOCCAL AB TYPE 56 1.7 ug/mL (>1.3); PNEUMOCOCCAL AB TYPE 57 6.5 ug/mL (>1.3); PNEUMOCOCCAL AB TYPE 68 0.6 ug/mL (>1.3); PNEUMOCOCCAL AB TYPE 8 2.4 ug/mL (>1.3); PNEUMOCOCCAL AB TYPE 9 1.3 ug/mL (>1.3)
[2019-06-11] MEDS ORDERED: METO1TAB32 PO (13:51)
== END 2019-05-20 12:12 | disposition home or self-care (01) | DRG 872 ==
LOC: M ED 11:57 → EDBD 11:57 → M ED INP 11:58 → CANRESERV 14:52 → ENRESERV 14:52 → ENRESERVTM 20:28 → ENRESERVDT 20:28 → M MSPAV 21:30 → OBSVTOIN 05-19 10:56
PROVIDERS: ADMIT Internal Medicine; ATTEND Internal Medicine
DX: A41.9 Sepsis, unspecified organism (principal); N17.9 Acute kidney failure, unspecified; E87.2 Acidosis; N39.0 Urinary tract infection, site not specified; D53.9 Nutritional anemia, unspecified; E11.9 Type 2 diabetes mellitus without complications; I10 Essential (primary) hypertension; E78.5 Hyperlipidemia, unspecified; E03.9 Hypothyroidism, unspecified; R53.1 Weakness; K21.9 Gastro-esophageal reflux disease without esophagitis; N32.81 Overactive bladder; B96.1 Klebsiella pneumoniae [K. pneumoniae] as the cause of diseases classified elsewhere; Z79.4 Long term (current) use of insulin; Z96.641 Presence of right artificial hip joint; Z96.651 Presence of right artificial knee joint; Z87.891 Personal history of nicotine dependence; Z79.899 Other long term (current) drug therapy; Z88.5 Allergy status to narcotic agent; R65.20 Severe sepsis without septic shock

== ENCOUNTER → 2019-06-11 | Outpatient (REF) | payer MEDICARE, MEDICAID ==
[~2019-06-11] MED LIST changes: +CIPR500T3 PO; +JARD1TAB3 PO; +METO1TAB32 PO; +OMEP-218 PO; +ROSU40TA4 PO; +SUCR1TAB56 PO; +VALS1TAB66 PO
[2019-06-11 11:48] LABS: FREE T4 1.19 NG/DL (0.76-1.46); THYROID STIMULATING HORMONE 0.471 uIU/ML (0.358-3.740)
== END ==
LOC: M SFHCPLAZ 10:01
PROVIDERS: ATTEND Family Medicine
DX: Z01.818 Encounter for other preprocedural examination (principal); E03.9 Hypothyroidism, unspecified; M16.12 Unilateral primary osteoarthritis, left hip

== ENCOUNTER → 2019-06-11 | Outpatient (REF) | payer MEDICARE, MEDICAID ==
[2019-06-11 11:34] LABS: HEMATOCRIT 29.8 % (36.0-47.0); HEMOGLOBIN 8.9 g/dl (12.0-15.5); MEAN CORPUSCULAR HEMOGLOBIN 34.1 pg (27.0-33.0); MEAN CORPUSCULAR HGB CONC 29.9 g/dl (32.0-36.5); PLATELET COUNT, AUTOMATED 440 10^3/uL (150-450); RED BLOOD COUNT 2.61 10^6/uL (4.00-5.40); WHITE BLOOD COUNT 8.6 10^3/uL (4.0-10.0)
[2019-06-11 11:39] LABS: ALBUMIN 3.7 GM/DL (3.2-5.2); BILIRUBIN,TOTAL 1.2 MG/DL (0.2-1.0); CALCIUM LEVEL 8.7 MG/DL (8.8-10.2); CREATININE FOR GFR 1.3 MG/DL (0.55-1.30); GLOMERULAR FILTRATION RATE 43.8 (>45); POTASSIUM SERUM 4.7 MEQ/L (3.5-5.1); TOTAL PROTEIN 6.8 GM/DL (6.4-8.2)
[2019-06-11 11:40] LABS: MEAN CORPUSCULAR VOLUME 114.2 fl (80.0-96.0)
[2019-06-11 11:46] LABS: INR 1.01
[2019-06-11 12:03] LABS: ERYTHROCYTE SEDIMENTATION RATE 47 mm/hr (0-30)
== END ==
LOC: M LABDRAWP 10:05
PROVIDERS: ATTEND Physical Medicine & Rehabilitation
DX: Z01.818 Encounter for other preprocedural examination (principal); M16.12 Unilateral primary osteoarthritis, left hip

== ENCOUNTER → 2019-06-11 | Outpatient (CLI) | payer OTHER, MEDICAID ==
[~2019-06-11] MED LIST changes: +HYDR-3713 PO; +HYDR-4571; +LOVE1INJ SC; +PRED20TA PO; +XARE10TA; +XARE10TA PO
--- NOTE | 2019-06-11 12:28 | REPPI ---
CHEST X-RAY: Two views. HISTORY: Left hip osteoarthritis. COMPARISON CHEST X-RAY: May 18, 2019. FINDINGS: The lungs are symmetrically somewhat hyperinflated but clear. Pleural angles are sharp. Heart is mildly enlarged unchanged. Cardiothoracic ratio measures 56.2%. The thoracic aorta somewhat tortuous. There are degenerative changes in the thoracic spine and the thoracic aorta. IMPRESSION: Cardiomegaly. Otherwise no acute disease. Electronically Signed by Tavares August MD 06/11/2019 01:30 P
== END ==
LOC: M RAD 10:35
PROVIDERS: ATTEND Orthopaedic Surgery
DX: Z01.818 Encounter for other preprocedural examination (principal); M16.12 Unilateral primary osteoarthritis, left hip; M51.34 Other intervertebral disc degeneration, thoracic region

== ENCOUNTER 2019-06-25 05:31 | Inpatient (IN) | payer OTHER, MEDICAID ==
--- NOTE | 2019-06-21 09:31 | HPE ---
DATE OF ADMISSION: 06/25/2019 HISTORY OF PRESENT ILLNESS: This is a pleasant 64-year-old female with symptomatic left hip osteoarthritis. She has consented for a left total hip arthroplasty per Dr. Abelardo Montanez. Medical optimization per Dr. Kendall, which I am awaiting the clearance note. X-rays are consistent with advanced osteoarthritis. ALLERGIES: The patient notes PERCOCET in her last postoperative replacement experience caused significant confusion and altered mental state. In fact, she was ripping out her IVs, so she does not want to take Percocet postoperatively. MEDICATIONS: List includes metoprolol, Humalog KwikPen 100 unit/mL, Glipizide, Jardiance, aspirin adult low dose 81 mg, levothyroxine sodium 200 mcg, ezetimibe 10 mg, cetirizine HCl 10 mg, Valsartan 80 mg, rosuvastatin calcium 40 mg, oxybutynin chloride 5 mg, omeprazole 20 mg, global inject ease insulin syringe/U-100/1 mL/3 G times 1/2 inch, 30 G times 1/2 inch 1 mL. MEDICAL PROBLEM LIST: Includes symptomatic left hip osteoarthritis, type 2 diabetes mellitus, thyroid disease, depression, obesity. PAST SURGICAL HISTORY: Right total hip arthroplasty. Right knee arthroplasty. Total hysterectomy. Carpal tunnel release. section. Splenectomy. FAMILY HISTORY:; Positive for heart disease, hypertension and myocardial infarction (NM). SOCIAL HISTORY: She is a former half a pack a day smoker who quit 7 years ago. REVIEW OF SYSTEMS: Denies chest pain, shortness of breath, dyspnea on exertion, fever, chills, malaise, upper respiratory or urinary tract symptoms. LABORATORY DATA: Chest x-ray completed via [facility], service date 06/11/2019, cardiomegaly, otherwise no acute disease as read by Dr. August. EKG result - sinus bradycardia, decreased rate , as read by Raeann Jackson. Labs completed via [facility] service date, 06/11/2019, RBC 2.61, hemoglobin 8.9, hematocrit 29.8, MCV 114.2, MCH 34.1, MCHC 29.9. Sed rate 47. Glucose 62, BUN 21, GFR 43.8, chloride 112. Calcium 8.7. Total bilirubin 1.2. PHYSICAL EXAMINATION: Blood pressure (BP) 122/80. Pulse 64. Temperature 97.6. Height 61.50. Weight 166 pounds 8 ounces. Body mass index (BMI) 38.9. Respirations 18. This is a pleasant well-developed, well-nourished, overweight, 64-year-old female. She is in no acute distress. She is alert and oriented x3. Mood and affect are appropriate. Please note that she is walking with the assistance of a rolling walker seated with breaks. Normocephalic. Neck supple. Negative jugular venous distention (JVD) or bruits. Lungs: Clear to auscultation. Chest: Regular rate and rhythm. Bowel sounds x4, soft, nontender. Lower extremity skin is intact. Benign noninfectious looking. Left hip range of motion is limited and irritable through internal and external range of motion. IMPRESSION: 1. Left hip symptomatic degenerative joint disease (DJD). The patient has consented for left total hip arthroplasty per Dr. Abelardo Montanez. 2. Medical optimization per Dr. Kendall per the patient, we are awaiting clearance note. 3. On-call to OR 2 grams IV Kefzol in OR. Five 4. Sequential compression device (SCD) and thromboembolic deterrent stockings (TEDS) in OR. 5. Note, the patient previously had an altered mental state with Percocet postoperatively for joint replacement. She is requesting to be provided another postoperative pain agent. MTDD
[2019-06-25] VITALS (7 sets, daily range): BP systolic 129–150; BP diastolic 40–53
[~2019-06-25] VITALS: Ht 152.4 cm; Wt 80.3 kg
[~2019-06-25 05:31] MED LIST changes: -HYDR-3713 PO; -HYDR-4571; -LOVE1INJ SC; -PRED20TA PO; -XARE10TA; -XARE10TA PO
[2019-06-25] MEDS ORDERED: ceFAZolin SOD 2 GM in IV 1 EA IV ONE (06:00)
[2019-06-25] MEDS: LEVOTHYROXINE 100MCG TABLET (0.1MG) PO SCH (06:00)
[2019-06-25] MEDS ORDERED: LR 1,000 ML IV ONE (06:00)
[2019-06-25] MEDS ORDERED: LIDOCAINE 2% INJ 100 MG/5 ML SDV (FOR ANES.) As Ordered ONE (06:11)
[2019-06-25] MEDS ORDERED: propofoL 200 MG/20 ML VIAL As Ordered ONE (06:12)
[2019-06-25] MEDS ORDERED: MIDAZOLAM INJ 2 MG/2 ML VIAL (J2250) As Ordered ONE (06:15)
[2019-06-25] MEDS ORDERED: ceFAZolin 1GM INJ (J0690 PER 500MG) As Ordered ONE (07:11)
[2019-06-25] MEDS ORDERED: BUPIVACAINE LIPOSOME/PF 1.3% 20ML VIAL (13.3MG/ML)(EXPAREL)(C9290 PER1MG) As Ordered ONE (07:12)
--- NOTE | 2019-06-25 07:56 | IPN ---
DATE: 06/25/2019 The patient seen and examined. She is 64 years of age and wishes to go ahead with a left total hip arthroplasty. She understands the nature of this. The risks of bleeding, infection, damage to nerves, vessels, persistent pain, wear loosening, dislocation, blood clots, medical problems, among others. She has decided she is opposed to blood transfusions even if it is for life-saving purposes.
[2019-06-25] MEDS ORDERED: ONDANSETRON 4MG/2ML VIAL (J2405) As Ordered ONE (08:45)
[2019-06-25] MEDS ORDERED: TRANEXAMIC ACID 100 MG/ML 10ML VIAL As Ordered ONE (08:50)
[2019-06-25] MEDS ORDERED: EPINEPHrine INJ 1 MG/ML 1ML VIAL As Ordered ONE (08:51)
[2019-06-25] MEDS: buPROPion **SR TABLET** (ZYBAN) 150MG PO SCH (09:00)
[2019-06-25] MEDS: ROSUVASTATIN 10 MG TAB (CRESTOR) PO SCH (09:00)
[2019-06-25] MEDS: EZETIMIBE 10 MG TAB (ZETIA) PO SCH (09:00)
[2019-06-25] MEDS: OMEPRAZOLE 20 MG CAP PO SCH (09:00)
[2019-06-25] MEDS ORDERED: ONDANSETRON 4MG/2ML VIAL (J2405) IV PRN ×2 (09:45)
[2019-06-25] MEDS ORDERED: METOCLOPRAMIDE INJ 10MG/2ML VIAL (J2765) IV PRN (09:45)
[2019-06-25] MEDS ORDERED: LR 1,000 ML IV SCH ×2 (09:45)
[2019-06-25] MEDS ORDERED: MORPHINE 4 MG/ML 1ML VIAL/SYRINGE (J2270) IV PRN (09:45)
[2019-06-25] MEDS ORDERED: fentaNYL 100 MCG/2 ML INJECTION (J3010) IV PRN (09:45)
[2019-06-25] MEDS ORDERED: MORPHINE 2 MG/ML 1ML VIAL (J2270) IV PRN ×2 (09:45)
[2019-06-25] MEDS ORDERED: NORCO, ANEXSIA 5/325MG TABLET (HYDROcodone/ACETAMINOPHEN) PO PRN (09:45)
--- NOTE | 2019-06-25 10:15 | REP ---
Left hip: Two views. History: Postop. Findings: The patient is status post left hip arthroplasty which is is seen in good position. Lateral skin denton are noted. Some soft tissue emphysema and swelling is noted. Impression: Status post left hip arthroplasty. A previous right hip arthroplasty is also visible on the lateral radiograph. Electronically Signed by Tavares August MD 06/25/2019 10:08 A
[2019-06-25] MEDS ORDERED: ALBUTEROL 90 MCG/ACT 8GM HFA INHALER INH PRN (11:15)
[2019-06-25] MEDS ORDERED: DEXTROSE 50% 50 ML SYRINGE IV PRN (11:30)
[2019-06-25] MEDS ORDERED: GLUCOSE 4 GM CHEW TABLET PO PRN (11:30)
[2019-06-25] MEDS ORDERED: GLUCAGON FOR INJ 1 MG VIAL (J1610) SC PRN (11:30)
--- NOTE | 2019-06-25 12:00 | CR.PDOC ---
General Date of Consultation: Jun 25, 2019 Consultation REASON FOR CONSULTATION/CHIEF COMPLAINT: Medication management s/p left ROBIN per Dr. Montanez HISTORY OF PRESENT ILLNESS: Ms. Cho is a 64 year old female with a history of osteoarthritis of the left hip. She has failed outpatient treatment and has provided consent for a total left hip arthroplasty per Dr. Montanez. Her PCP is Dr. Kendall. Pt was seen in the recovery room this morning; she denied any pain or discomfort. She reported that her toes are no longer numb. She has previously had joint replacement surgery of the right knee and hip also due to arthritis. ALLERGIES: Please see below. HOME MEDICATIONS: Please see below. PAST MEDICAL HISTORY: 1. Hypertension 2. DMII 3. Osteoarthritis 4. Hyperlipidemia 5. Chronic anemia s/p splenectomy 2007 6. OAB 7. Hypothyroidism PAST SURGICAL HISTORY: 1. Splenectomy 2. Right total knee arthroplasty 3. Right total hip arthroplasty 4. Complete hysterectomy 5. Right carpal tunnel release FAMILY HISTORY: Mother: DM Siblings: only child SOCIAL HISTORY: Tobacco use: Former smoker; quit 7/8 years ago after 40 years ETOH: denied Illicit drug use: denied IV drug use: denied REVIEW OF SYSTEMS: 10 point Reviw of Systems negative except as noted in HPI PHYSICAL EXAMINATION: VITAL SIGNS: Please see below. General Exam: Positive: Alert, Cooperative, No Acute Distress Eye Exam: Positive: Conjunctiva & lids normal; Negative: Sclera icteric ENT Exam: Positive: Atraumatic, Mucous membr. moist/pink Neck Exam: Positive: Supple; Negative: thyromegaly Chest Exam: Positive: Clear to auscultation, Normal air movement Heart Exam: Positive: Rate Normal, Regular Rhythm, Normal S1, Normal S2; Negative: Murmurs, Rubs Telemetry: Positive: No significant arrhythmia Abdomen Exam: Positive: Normal bowel sounds, Soft; Negative: Tenderness Extremity Exam: Positive: Normal pulses; Negative: Clubbing, Cyanosis, Edema Skin Exam: Positive: Nl turgor and temperature, Other skin issue (Surgical bandaging in place; no signs of inflammation ); Negative: Rash, Breakdown Neuro Exam: Positive: Normal Speech, Cranial Nerves 3-12 NL Psych Exam: Positive: Mood NL, Oriented x 3 LABORATORY DATA: Please see below. ASSESSMENT/PLAN: Osteoarthritis s/p total left hip arthroplasty - management and pain management per Dr. Montanez Hypertension - resume Valsartan, Metoprolol DMII - ISS with FBS achs - carb steady diet Hyperlipidemia - resume Zetia and Crestor Chronic anemia s/p splenectomy 2007 - monitor CBC OAB - resume Oxybutynin Hypothyroidism - resume Synthroid DVT prophylaxis: Bridgett and [employer] Candie Bird, have independently examined this patient and performed my own physical exam, as well as reviewed the documentation and edited where necessary. I have discussed in detail with the nurse practitioner the findings and plan of treatment as documented by the nurse practitioner . I will continue to follow the patient during this hospital stay. Vital Signs/I&O Vital Signs Date Time Temp Pulse Resp B/P (MAP) Pulse Ox O2 Delivery O2 Flow Rate FiO2 06/25/19 11:00 18 144/62 (89) 100 Nasal Cannula 2 06/25/19 09:55 97.4 50 Laboratory Data Labs 24H Laboratory Tests 2 06/25/19 06:37: Bedside Glucose (Misc Panel) 172H 06/25/19 10:12: Bedside Glucose (Misc Panel) 122H Allergies Coded Allergies: acetaminophen (Verified Allergy, Unknown, 06/24/19) oxycodone (Verified Adverse Reaction, Mild, confusion, 06/11/19) Home Medications Scheduled Aspirin (Aspir 81) 81 Mg Tab, 81 MG PO DAILY, (Reported) Bupropion HCl (Bupropion HCl Sr) 150 Mg Tab, 150 MG PO DAILY, (Reported) Empagliflozin (Jardiance) 25 Mg Tablet, 25 MG PO DAILY, (Reported) Ezetimibe (Ezetimibe) 10 Mg Tab, 10 MG PO DAILY, (Reported) Glipizide (Glipizide) 10 Mg Tab, 10 MG PO BID, (Reported) Insulin Lispro (Humalog) 100 Unit/Ml Inj, 1 DOSE SC AC, (Reported) PER SLIDING SCALE Levothyroxine Sodium (Levothyroxine Sodium) 200 Mcg Tab, 200 MCG PO DAILY, (Re ported) Metoprolol Succinate (Metoprolol Succinate) 25 Mg Tab.er.24h, 12.5 MG PO QHS, (Reported) Omeprazole (Omeprazole) 20 Mg Capsule.dr, 20 MG PO DAILY, (Reported) Oxybutynin Chloride (Oxybutynin Chloride) 5 Mg Tablet, 5 MG PO BID, (Reported) Rosuvastatin Calcium (Rosuvastatin Calcium) 40 Mg Tablet, 40 MG PO DAILY, (Reported) Sucralfate (Sucralfate) 1 Gm Tablet, 1 GM PO TID, (Reported) Valsartan (Valsartan) 80 Mg Tablet, 80 MG PO DAILY, (Reported) Scheduled PRN Albuterol Sulfate (Proair Hfa) 108 Mcg/Act Aer, 2 PUFF INH QID PRN for SHORTNESS OF BREATH, (Reported) THIAGO BOSS PA-C Jun 25, 2019 12:00 CANDIE DE LA CRUZ DO Jun 25, 2019 18:09
[2019-06-25] MEDS: NORCO, ANEXSIA 5/325MG TABLET (HYDROcodone/ACETAMINOPHEN) PO PRN ×2 (13:01→20:04)
[2019-06-25] MEDS: ceFAZolin SOD 2 GM in IV 1 EA IV SCH (15:56)
[2019-06-25] MEDS: SUCRALFATE 1 GM TAB PO SCH ×2 (15:56→20:02)
[2019-06-25] MEDS: HumaLOG INSULIN (NovoLOG) PER UNIT SC SCH (16:42)
[2019-06-25] MEDS: METOPROLOL SUCC *XL* 12.5MG PER 1/2 TAB (TopROL *XL*) PO SCH (20:02)
[2019-06-25] MEDS: oxyBUTYnin 5 MG TAB PO SCH (20:03)
[2019-06-26] MEDS: ceFAZolin SOD 2 GM in IV 1 EA IV SCH (00:42)
[2019-06-26] MEDS: NORCO, ANEXSIA 5/325MG TABLET (HYDROcodone/ACETAMINOPHEN) PO PRN ×4 (02:50→21:31)
[2019-06-26 04:53] VITALS: BP 125/49
[2019-06-26] MEDS: LEVOTHYROXINE 100MCG TABLET (0.1MG) PO SCH (06:03)
[2019-06-26] MEDS ORDERED: XARE10TA PO (06:38)
[2019-06-26] MEDS ORDERED: HYDR-3713 PO (06:38)
[2019-06-26 08:21] LABS: HEMATOCRIT 23.8 % (36.0-47.0); HEMOGLOBIN 7.2 g/dl (12.0-15.5); MEAN CORPUSCULAR HEMOGLOBIN 34.6 pg (27.0-33.0); MEAN CORPUSCULAR HGB CONC 30.3 g/dl (32.0-36.5); PLATELET COUNT, AUTOMATED 385 10^3/uL (150-450); RED BLOOD COUNT 2.08 10^6/uL (4.00-5.40); WHITE BLOOD COUNT 13.3 10^3/uL (4.0-10.0)
[2019-06-26 08:22] LABS: MEAN CORPUSCULAR VOLUME 114.4 fl (80.0-96.0)
[2019-06-26] MEDS: buPROPion **SR TABLET** (ZYBAN) 150MG PO SCH (08:40)
[2019-06-26] MEDS: OMEPRAZOLE 20 MG CAP PO SCH (08:40)
[2019-06-26] MEDS: MOM 30ML SUSPENSION UDC PO SCH (08:40)
[2019-06-26 08:41] LABS: ALBUMIN 3.2 GM/DL (3.2-5.2); BILIRUBIN,TOTAL 1.3 MG/DL (0.2-1.0); CALCIUM LEVEL 8.4 MG/DL (8.8-10.2); CREATININE FOR GFR 1.18 MG/DL (0.55-1.30); GLOMERULAR FILTRATION RATE 48.9 (>45); POTASSIUM SERUM 4.4 MEQ/L (3.5-5.1); TOTAL PROTEIN 6.1 GM/DL (6.4-8.2)
[2019-06-26] MEDS: MIRALAX *UNIT DOSE* 17GM PACKET PO SCH (08:41)
[2019-06-26] MEDS: EZETIMIBE 10 MG TAB (ZETIA) PO SCH (08:41)
[2019-06-26] MEDS: ROSUVASTATIN 10 MG TAB (CRESTOR) PO SCH (08:41)
[2019-06-26] MEDS: SUCRALFATE 1 GM TAB PO SCH ×3 (08:41→21:30)
[2019-06-26] MEDS: oxyBUTYnin 5 MG TAB PO SCH ×2 (08:41→21:31)
[2019-06-26] MEDS: VALSARTAN 80 MG TAB (DIOVAN) PO SCH (08:42)
[2019-06-26] MEDS: HumaLOG INSULIN (NovoLOG) PER UNIT SC SCH ×3 (08:53→18:09)
[2019-06-26 14:00] VITALS: BP 105/36
--- NOTE | 2019-06-26 15:11 | IPNPDOC ---
Text Note Date of Service The patient was seen on 06/26/19. NOTE Subjective: No any acute events overnight. Patient denied fever, chills, nausea, vomiting, diarrhea or dysuria. She complains of left hip pain after surgery 5 out of 10. Objective: VITAL SIGNS: Please see below. GENERAL APPEARANCE: Well-nourished, well-developed, not in apparent distress HEENT: Normocephalic, atraumatic. Mucous members moist and pink CARDIOVASCULAR: Regular rate and rhythm. No murmurs, rubs or gallops. Radial pulses are intact. There is no lower extremity edema LUNGS: Diminished lung sounds ABDOMEN: Abdomen is soft and nontender. MUSCULOSKELETAL: No edema, no swelling of lower extremities, pulsation intact NEUROLOGICAL: Cranial nerves II-12 are grossly intact. Speech is not dysarthric ASSESSMENT/PLAN: Patient is a 64 year old female with a history of osteoarthritis of the left hip. Left hip Arthroplasty was done on 06/25/19. Osteoarthritis s/p total left hip arthroplasty - management and pain management per Dr. Montanez Hypertension Continue home meds DMII Insulin sliding scale Diabetes diet Hyperlipidemia Continue home meds Chronic anemia s/p splenectomy 2007 Hemoglobin 7.2, patient asymptomatic, no tachycardia Will transfuse if hemoglobin less than 7 OAB - resume Oxybutynin Hypothyroidism -Continue with Synthroid VS,Fishbone, I+O VS, Fishbone, I+O Laboratory Tests 06/26/19 08:01 Vital Signs Date Time Temp Pulse Resp B/P (MAP) Pulse Ox O2 Delivery O2 Flow Rate FiO2 06/26/19 13:53 18 06/26/19 08:42 130/75 06/26/19 04:53 98.7 89 94 Room Air 06/25/19 11:00 2 I&O- Last 24 Hours up to 6 AM 06/26/19 06:00 Intake Total 3540 ml Output Total 425 ml Balance 3115 ml CANDIE DE LA CRUZ DO Jun 26, 2019 15:10
[2019-06-26] MEDS: RIVAROXABAN 10 MG TAB (XARELTO) PO SCH (18:10)
[2019-06-26 20:03] VITALS: BP 113/39
[2019-06-26] MEDS: ASPIRIN 81 MG ENTERIC TAB PO SCH (21:30)
[2019-06-26] MEDS: METOPROLOL SUCC *XL* 12.5MG PER 1/2 TAB (TopROL *XL*) PO SCH (21:43)
--- NOTE | 2019-06-26 22:47 | IPN ---
DATE: 06/26/2019 CHIEF COMPLAINT: Postoperative day #1 left total hip arthroplasty. HISTORY OF PRESENT ILLNESS: This 64-year-old female had left total hip arthroplasty done by Dr. Montanez yesterday. She is doing well. No concerns or complaints from her nursing staff. PHYSICAL EXAMINATION: She is a well-appearing 64-year-old female in no acute stress. She is alert and times three. Mood affect pleasant, positive. Station is normal. Vital signs are stable. No chest pain or shortness of breath. Dressings clean and dry. She is neurovascular intact to both lower extremities, normal sensation. Motor function throughout. Her foot feels warm and well perfuse. Good pedal pulses. Laboratory examination reveals hemoglobin of 7.2. ASSESSMENT AND PLAN: A 64-year-old female. Should have repeat hemoglobin postoperatively. Keep restrictive transfusion guidelines, and given that she is asymptomatic one could hold off on transfusion and repeat the hemoglobin. I will leave this up to the hospitalist to assess her for possible need for transfusion. She should be mobilized, activity as tolerated by the physical therapist. The patient is on aspirin 81 mg once a day. I did not see Xarelto ordered for venous thromboembolism prophylaxis (VTE) prophylaxis, as is typical for postoperative hip replacement, although perhaps there is some reason for this. I will again leave this up to the hospitalist.
[2019-06-27] MEDS: LEVOTHYROXINE 100MCG TABLET (0.1MG) PO SCH (05:49)
[2019-06-27 06:09] VITALS: BP 118/44
[2019-06-27 07:26] LABS: HEMATOCRIT 22.5 % (36.0-47.0); MEAN CORPUSCULAR HEMOGLOBIN 34.4 pg (27.0-33.0); MEAN CORPUSCULAR HGB CONC 29.8 g/dl (32.0-36.5); PLATELET COUNT, AUTOMATED 388 10^3/uL (150-450); RED BLOOD COUNT 1.95 10^6/uL (4.00-5.40); WHITE BLOOD COUNT 16.8 10^3/uL (4.0-10.0)
[2019-06-27 07:35] LABS: HEMOGLOBIN 6.7 g/dl (12.0-15.5); MEAN CORPUSCULAR VOLUME 115.4 fl (80.0-96.0)
[2019-06-27 07:52] LABS: ALBUMIN 2.9 GM/DL (3.2-5.2); BILIRUBIN,TOTAL 1.8 MG/DL (0.2-1.0); CALCIUM LEVEL 8.3 MG/DL (8.8-10.2); CREATININE FOR GFR 1.21 MG/DL (0.55-1.30); GLOMERULAR FILTRATION RATE 47.5 (>45); POTASSIUM SERUM 4.2 MEQ/L (3.5-5.1); TOTAL PROTEIN 6.3 GM/DL (6.4-8.2)
[2019-06-27] MEDS: HumaLOG INSULIN (NovoLOG) PER UNIT SC SCH ×3 (08:11→17:40)
[2019-06-27] MEDS: traMADol 50 MG TAB PO PRN (08:13)
[2019-06-27] MEDS: EZETIMIBE 10 MG TAB (ZETIA) PO SCH (08:14)
[2019-06-27] MEDS: SUCRALFATE 1 GM TAB PO SCH ×3 (08:14→21:52)
[2019-06-27] MEDS: MIRALAX *UNIT DOSE* 17GM PACKET PO SCH (08:14)
[2019-06-27] MEDS: OMEPRAZOLE 20 MG CAP PO SCH (08:14)
[2019-06-27] MEDS: ROSUVASTATIN 10 MG TAB (CRESTOR) PO SCH (08:14)
[2019-06-27] MEDS: VALSARTAN 80 MG TAB (DIOVAN) PO SCH (08:14)
[2019-06-27] MEDS: oxyBUTYnin 5 MG TAB PO SCH ×2 (08:14→21:50)
[2019-06-27] MEDS: MOM 30ML SUSPENSION UDC PO SCH (08:15)
[2019-06-27] MEDS: buPROPion **SR TABLET** (ZYBAN) 150MG PO SCH (08:22)
[2019-06-27] MEDS ORDERED: NS 1,000 ML IV SCH (09:00)
--- NOTE | 2019-06-27 10:52 | IPN ---
DATE: 06/27/2019 CHIEF COMPLAINT: Postoperative day #2 left total hip arthroplasty. HISTORY OF PRESENT ILLNESS: This 64-year-old female underwent uneventful left total hip arthroplasty two days ago by Dr. Montanez. She is doing well seen on the yoo. No concerns from the nursing staff. PHYSICAL EXAMINATION: Well-appearing 64-year-old female. She is able to mobilize with one assist to the washroom. She is able to stand up on that side. Dressings clean and dry. LABORATORY EXAMINATION: Reveals a low hemoglobin down to 6.7 from 7.2. ASSESSMENT AND PLAN: 64-year-old female who will likely need a transfusion, I will leave this up to the hospitalist's capable management. Pinky, our nurse practitioner, is aware and she will communicate with them as well. The patient has been ordered Xarelto 10 mg once day to start 24 hours after surgery for VTE prophylaxis.
[2019-06-27] MEDS: NORCO, ANEXSIA 5/325MG TABLET (HYDROcodone/ACETAMINOPHEN) PO PRN ×2 (12:46→21:51)
--- NOTE | 2019-06-27 13:51 | REP ---
CT of the left femur without IV contrast: Axial images are acquired helical scanning and are reformatted in sagittal and coronal projections. There is a total left hip arthroplasty. There is no soft tissue hematoma, focal fluid collection or mass. There are multiple tiny air bubbles within the fascial planes of the quadriceps muscle primarily in the fascial plane between the rectus femoris and vastus intermedius. Impression: There are air bubbles within the fascial planes of the quadriceps muscle. There is no hematoma, focal fluid collection or mass. There is a total left hip arthroplasty. There is osteoarthritis of the left knee. Electronically Signed by Negrito Moses MD 06/27/2019 01:43 P
[2019-06-27 14:00] VITALS: BP 121/79
[2019-06-27 14:02] LABS: HEMATOCRIT 21.2 % (36.0-47.0)
[2019-06-27 14:06] LABS: HEMOGLOBIN 6.5 g/dl (12.0-15.5)
[2019-06-27 14:24] LABS: BILIRUBIN,TOTAL 2.1 MG/DL (0.2-1.0); CALCIUM LEVEL 8.2 MG/DL (8.8-10.2); CREATININE FOR GFR 1.16 MG/DL (0.55-1.30); GLOMERULAR FILTRATION RATE 49.9 (>45); POTASSIUM SERUM 4.2 MEQ/L (3.5-5.1); TOTAL PROTEIN 5.9 GM/DL (6.4-8.2)
--- NOTE | 2019-06-27 14:24 | CR ---
DATE OF CONSULTATION: 06/27/2019 DIAGNOSIS: Anemia, need for transfusion in patient with history of autoimmune hemolytic anemia, and anti-Charmaine antibody, in the perioperative setting following left hip replacement. REQUESTING PHYSICIAN: Wilder Al MD HISTORY OF PRESENT ILLNESS: Ms. Cho is a 64-year-old woman with a personal history of autoimmune hemolytic anemia diagnosed in 2007, when she presented with refractory anemia. She was evaluated by Dr. Gael Leigh at [facility] in [place], started on high-dose steroids. She eventually underwent splenectomy in [place] in 2007, and has been observed since. During the period of her initial workup in 2007, she received a total of five red blood cell (RBC) unit transfusions on 02/01/2008. Hemolysis labs, including LDH, total bilirubin, reticulocyte counts, were all elevated at that time. They subsequently normalized, but again in October 2016, and again in April 2018, LDH, bilirubin, and reticulocyte count has risen. As of 05/18/2019, reticulocyte count was 140. Since 2007, the patient has undergone several surgeries, including total right knee replacement in 2009, and total right hip replacement in 2016. She did not require transfusions during at those times, and hemoglobin has been normal since November 2009 with a few exceptions. Beginning October 2016, a gradual drift down in hemoglobin is observable, from two digit numbers to one digit number beginning May this year. On the day of her left hip replacement, hemoglobin was either 8.9 or 7.2. We do not have a result of the very day. One day following, it was 7.2 and today 6.7. At the bedside, Loan is an affable, pleasant woman reclining. She complains of left hip pain. She does not remember it being this bad for her right hip replacement. She also feels somewhat tired. She reported the history of following with Dr. Leigh for many years until he retired in 2018. When the Hematology/Oncology service transferred over to the hospital, she apparently discontinued followup, having seen Dr. Valle on one occasion, but not since. I am unable to find any notes in the digital record and will pull the paper chart on Friday morning. Ms. Cho denies any sudden onset fatigue in the last few months, she denies her skin turning yellow in the last few months, but acknowledges some significant fatigue today. PAST MEDICAL HISTORY: 1. Autoimmune hemolytic anemia diagnosed in 2007, with at least anti-[place] antibody identified, possibly an anti-IgG antibody. Treated with steroids, ultimately splenectomy, lost to followup. 2. Type 2 diabetes. 3. Osteoarthritis. 4. Hypothyroidism. 5. Depression. 6. Obesity. PAST SURGICAL HISTORY: 1. Tonsillectomy as a child. 2. Right total hip arthroplasty 2009. 3. Right knee arthroplasty 2011. 4. Total hysterectomy. 5. Carpal tunnel surgery. 6. section. 7. Splenectomy 2007. Former 30 pack-year smoking history, stopped in 2012. Denies alcohol. FAMILY HISTORY: No hemolytic anemia to the patient's knowledge. No malignancies. HOME MEDICATIONS: - Humalog 100 units per milliliter KwikPen - glipizide - Jardiance - low-dose aspirin - levothyroxine 200 mcg - ezetimibe 10 mg - cetirizine 10 mg - valsartan 80 mg - rosuvastatin 40 mg - oxybutynin 5 mg - omeprazole 20 mg - insulin 30 grams Global Inject Ease. INPATIENT MEDICATION LIST: - baby aspirin - rivaroxaban 10 mg daily - tramadol 50 mg every 12 hours as needed for pain - valsartan 80 mg - polyethylene glycol - magnesium hydroxide - hydrocodone 2 tablets every 4 hours as needed for severe pain; 1 tablet every 4 hours for mild pain. - metoprolol 12.5 mg daily long-acting - oxybutynin 5 mg daily - sucralfate - insulin - lispro - dextrose - glucose as needed - glucagon as needed - ondansetron every 6 hours as needed - bupropion 150 mg daily - ezetimibe 10 mg daily - omeprazole 20 mg daily - rosuvastatin 40 mg daily - levothyroxine 200 mcg daily. REVIEW OF SYSTEMS: in addition to pertinent positives and negatives above, the patient denies recent chest pain, shortness of breath, unusual new weakness, rash. She has chronic joint aches, particularly involving her left hip. Now she has post operative pain in her left hip. She acknowledges major weight gain after prednisone treatment in 2007, which she has not been able to reverse. No new shortness of breath, chest pain, palpitations. Remainder of 12 system review negative. PHYSICAL EXAMINATION: VITAL SIGNS: Temperature 97.9, blood pressure 118/44, heart rate 67, respiratory 18, oxygen saturation 88% recorded today, all priors in the 90s. HEENT: No obvious scleral icterus. There is a slightly sallow tinge to the patient's complexion. Oropharynx clear. Moist pink mucous membranes. RESPIRATORY: Clear lungs throughout the lung rodriguez anteriorly, posteriorly in the upper lung rodriguez. No basilar rales appreciated. CARDIAC: S1, S2. Regular rate and rhythm. No murmur. No gallop. No tachycardia. ABDOMEN: Soft, obese, nontender and nondistended. EXTREMITIES: Symmetric bilaterally, wearing boots, warm to touch. LYMPH NODES: No palpable submandibular, cervical, supraclavicular or axillary adenopathy bilaterally. LABORATORY DATA: WBC 16, hemoglobin 6.7, hematocrit 22, platelets 388. Electrolytes normal. Renal function normal. GFR 47, glucose 164, calcium 8.3. Albumin 2.9, total bilirubin 1.8. AST, ALT, alkaline phosphatase normal. Haptoglobin, reticulocyte count, LDH, GUILLERMO pending. IMPRESSION: A 64-year-old woman two days postop from left hip replacement with history of autoimmune hemolytic anemia diagnosed in 2007 requiring protracted steroid treatment, ultimately requiring splenectomy. In apparent clinical remission since at least until 2017, when labs reveal a trend towards increased LDH, bilirubin and decreased hemoglobin. Mindful of that, type and screen positive for anti-Charmaine antibody. New have hematocrit drop with slight up-tick in bilirubin, but normal AST, uncertain etiology whether hemolysis or postop losses, or occult losses, for example from a hematoma; the latter must be considered on a patient on both aspirin and prophylactic Lovenox. Notably, today's pulse oximetry 88%, a dip from priors. PLAN: 1. I spoke about the case extensively with Dr. Al. I am recommending holding on transfusions until we have a repeat type and screen and I have conferred with colleagues and blood bank at more length tomorrow. My concern is for inducing severe hemolysis in a patient who may have recurrent autoimmune hemolytic anemia. 2. Begin prednisone 1 mg/kg daily. Response is typically seen in the first or second week; if not by the third week, other lines of treatment need to be considered, such as rituximab, IVIG, or other immunosuppression. 3. I discussed with Dr. Al in the wisdom of imaging the left hip area to rule out hematoma, given the significant hematocrit drop, the patient on antiplatelet and anticoagulant therapy, and the importance of distinguishing between hemolysis and surgical or occult losses. 4. Haptoglobin will take several days to return. But if below normal, this clinches the hemolysis diagnosis and makes treatment of the autoimmune hemolytic anemia paramount concern. 5. This patient is post splenectomy; fever, chills or any infectious signs should be managed with forbes culturing and high index of suspicion for encapsulated organisms and treatment appropriately. Will follow. TRID
--- NOTE | 2019-06-27 14:43 | IPNPDOC ---
Text Note Date of Service The patient was seen on 06/27/19. NOTE Subjective: Patient complains of shortness of breath. No any acute events ove rnight. Objective: VITAL SIGNS: Please see below. GENERAL APPEARANCE: Well-nourished, well-developed, not in apparent distress HEENT: Normocephalic, atraumatic. Mucous members moist and pink CARDIOVASCULAR: Regular rate and rhythm. No murmurs, rubs or gallops. Radial pulses are intact. There is no lower extremity edema LUNGS: Diminished lung sounds ABDOMEN: Abdomen is soft and nontender. MUSCULOSKELETAL: No edema, no swelling of lower extremities, pulsation intact NEUROLOGICAL: Cranial nerves II-12 are grossly intact. Speech is not dysarthric ASSESSMENT/PLAN: Patient is a 64 year old female with a history of osteoarthritis of the left hip. Left hip Arthroplasty was done on 06/25/19. After surgery patient developed anemia, there is concern for hemolysis. Patient has history of autoimmune hemolytic anemia Chronic anemia s/p splenectomy 2008 due to autoimmune hemolytic anemia There is concern for hemolysis today, hemoglobin dropped to 6.7 Dr. Harper ordered DIC panel, she recommended to start prednisone Patient doesn't have any symptoms of acute bleed, patient is not tachycardic, not hypotensive. CT of the left hip negative for intramuscular hemorrhage. Blood transfusion is not recommended Shortness of breath Most likely due to atelectasis after surgery or anemia Incentive spirometry Acapella Chest x-ray Osteoarthritis s/p total left hip arthroplasty - management and pain management per Dr. Montanez Hypertension Continue home meds DMII Insulin sliding scale Diabetes diet Hyperlipidemia Continue home meds OAB - resume Oxybutynin Hypothyroidism -Continue with Synthroid VS,Fishbone, I+O VS, Fishbone, I+O Laboratory Tests 06/27/19 06:26 06/27/19 13:47 Vital Signs Date Time Temp Pulse Resp B/P (MAP) Pulse Ox O2 Delivery O2 Flow Rate FiO2 06/27/19 13:20 18 06/27/19 08:14 120/82 06/27/19 07:15 1.0 06/27/19 06:09 97.9 67 88 Room Air I&O- Last 24 Hours up to 6 AM 06/27/19 06:00 Intake Total 1980 ml Output Total 0 ml Balance 1980 ml CANDIE DE LA CRUZ DO Jun 27, 2019 14:43
[2019-06-27] MEDS ORDERED: predniSONE 20 MG TAB PO ONE (15:00)
--- NOTE | 2019-06-27 15:41 | REP ---
Portable chest, 11:13 p.m., single AP view with the patient semi upright: Comparison is 06/11/2019. There is cardiomegaly, unchanged. The lung rodriguez otherwise clear and unchanged. The letty, mediastinum, skeletal structures are unremarkable and unchanged. Impression: There are no acute cardiopulmonary findings. Electronically Signed by Negrito Moses MD 06/27/2019 03:33 P
[2019-06-27] MEDS: RIVAROXABAN 10 MG TAB (XARELTO) PO SCH (17:39)
[2019-06-27 20:28] LABS: HEMATOCRIT 22.3 % (36.0-47.0)
[2019-06-27 20:41] LABS: HEMOGLOBIN 6.7 g/dl (12.0-15.5)
[2019-06-27] MEDS: ASPIRIN 81 MG ENTERIC TAB PO SCH (21:50)
[2019-06-27] MEDS: METOPROLOL SUCC *XL* 12.5MG PER 1/2 TAB (TopROL *XL*) PO SCH (21:52)
[2019-06-27 22:00] VITALS: BP 132/51
[2019-06-28] VITALS (9 sets, daily range): BP systolic 117–144; BP diastolic 43–51
[2019-06-28 02:18] LABS: HEMATOCRIT 22.1 % (36.0-47.0)
[2019-06-28 02:28] LABS: HEMOGLOBIN 6.7 g/dl (12.0-15.5)
[2019-06-28] MEDS: NORCO, ANEXSIA 5/325MG TABLET (HYDROcodone/ACETAMINOPHEN) PO PRN ×2 (05:31→18:26)
[2019-06-28] MEDS: LEVOTHYROXINE 100MCG TABLET (0.1MG) PO SCH (05:31)
[2019-06-28] MEDS: MOM 30ML SUSPENSION UDC PO SCH (08:12)
[2019-06-28] MEDS: MIRALAX *UNIT DOSE* 17GM PACKET PO SCH (08:12)
[2019-06-28] MEDS: EZETIMIBE 10 MG TAB (ZETIA) PO SCH (08:13)
[2019-06-28] MEDS: VALSARTAN 80 MG TAB (DIOVAN) PO SCH (08:13)
[2019-06-28] MEDS: SUCRALFATE 1 GM TAB PO SCH ×3 (08:13→20:17)
[2019-06-28] MEDS: buPROPion **SR TABLET** (ZYBAN) 150MG PO SCH (08:13)
[2019-06-28] MEDS: OMEPRAZOLE 20 MG CAP PO SCH (08:13)
[2019-06-28] MEDS: oxyBUTYnin 5 MG TAB PO SCH ×2 (08:13→20:17)
[2019-06-28] MEDS: ROSUVASTATIN 10 MG TAB (CRESTOR) PO SCH (08:14)
[2019-06-28] MEDS: predniSONE 20 MG TAB PO SCH (08:14)
[2019-06-28] MEDS: HumaLOG INSULIN (NovoLOG) PER UNIT SC SCH ×3 (08:14→18:25)
[2019-06-28 08:52] LABS: CALCIUM LEVEL 8.3 MG/DL (8.8-10.2); CREATININE FOR GFR 1.35 MG/DL (0.55-1.30); GLOMERULAR FILTRATION RATE 41.9 (>45); MAGNESIUM LEVEL 3.2 MG/DL (1.8-2.4); POTASSIUM SERUM 4.8 MEQ/L (3.5-5.1)
[2019-06-28 08:55] LABS: HEMATOCRIT 21.7 % (36.0-47.0); MEAN CORPUSCULAR HEMOGLOBIN 35.1 pg (27.0-33.0); MEAN CORPUSCULAR HGB CONC 30.4 g/dl (32.0-36.5); PLATELET COUNT, AUTOMATED 441 10^3/uL (150-450); RED BLOOD COUNT 1.88 10^6/uL (4.00-5.40); WHITE BLOOD COUNT 16.8 10^3/uL (4.0-10.0)
[2019-06-28 08:57] LABS: HEMOGLOBIN 6.6 g/dl (12.0-15.5); MEAN CORPUSCULAR VOLUME 115.4 fl (80.0-96.0)
[2019-06-28 09:42] LABS: TOTAL 25(OH) VITAMIN D 33.2 NG/ML (30.0-100.0)
[2019-06-28] MEDS: traMADol 50 MG TAB PO PRN (10:31)
--- NOTE | 2019-06-28 10:43 | RO ---
DATE OF PROCEDURE: 06/25/2019 PREOP DIAGNOSIS: Left hip osteoarthritis. POSTOPERATIVE DIAGNOSIS: Left hip osteoarthritis. PROCDURE: Left total hip arthroplasty using a [place] size 5 high offset, +5, 32 ball, size 50 cup. SURGEON: Dr. Abelardo Montanez. GLOVE OPERATOR: EN Nassar ANESTHESIA: Spinal. ESTIMATED BLOOD LOSS: 200 mL COMPLICATIONS: None. INDICATIONS: 64-year woman who has had some persistent left hip pain and wished to go ahead with a hip replacement, had severe arthritis. DESCRIPTION OF PROCEDURE: The patient was taken to the operating room and Placed in the supine position. After spinal anesthesia was induced, she was then turned to the right lateral decubitus position on the [place] positioner. All areas were padded appropriately. Left hip was prepped and draped in the usual sterile fashion. Time-out was performed and a longitudinal incision was made over the lateral aspect of the hip. Sharp dissection was carried down to subcutaneous tissue, controlled hemostasis with cautery and then incised the fascia scarlett. I then exposed the abductor and divided the anterior 40% or so the abductor off the anterior aspect of the hip down around to the neck and head and eventually was able to dislocate with some difficulty. The canal initiating reamer followed by the canal finding reamer and lateralizing reamer and sequentially reamed up to a size 5 which had good bony purchase. This is what we had templated to as a 5 or 6. I then cut the neck at the appropriate distance up from the lesser trochanter, removed the head which was severely arthritic and then directed attention to the acetabulum. Anterior posterior retractors were place. Soft tissue was removed from around the acetabulum. I then sequentially reamed and I was able to medialized probably about 3-4 mm and had good concentric reaming at 49 mm So I selected a 50 cup, which I impacted in place after irrigation. Appropriate amount of anteversion horizontal tilt was dialed in and then impacted in the liner. Made sure this was well seated. Then directed our attention back to the femur which was then sequentially broached up to a size 5, which had good purchase, good fit and fill. It was very slightly proximally but I was pleased with the way this fit the femur. I then trialled off this and with a variety of head and neck and offset length, I decided on a high offset +5 which had excellent stability in flexion internal rotation, extension external rotation. There was minimal shuck in full extension. Soft tissue tension was appropriate. I then removed the trial components. I had irrigated multiple times. I again irrigated at this point. I did remove some osteophytes from the anterior and posterior on the acetabular side prior to trialing. I then impacted in the size 5 high offset stem in the appropriate amount of anteversion, made sure this was well seated. No fracture was noted. I then dried the taper and placed the +5, 32 ball, impacted it in place. Reduced the hip, again put the hip through range of motion. I was very pleased with the stability and range of motion and soft tissue tension. I then irrigated copiously, placed the TXA deep in the tissues. The Exparel in the deep tissues and then closed the deep layer with #1 Vicryl suture and the abductors with #1-0 Vicryl suture with an excellent repair noted. I then repaired the fascia scarlett with #1-0 Vicryl suture in running Stratafix suture. I irrigated each level and closed subcu with #2-0 Vicryl. The skin with denton. Sterile dressing was applied. She was taken to recovery room in stable condition. There were no known complications. The plan will be routine postop. Her leg lengths appeared to be symmetric in the recover room. The credit assistant was instrumental in holding retractors and assisting in reducing and dislocating the hip and assisting in wound closure.
[2019-06-28] MEDS ORDERED: IMMUNE GLOBULIN 10% 0 GM in IV 1 EA IV SCH (11:30)
--- NOTE | 2019-06-28 11:41 | IPN ---
MEDICAL ONCOLOGY FOLLOWUP DATE OF SERVICE: 06/28/2019 DIAGNOSIS: Autoimmune hemolytic anemia with hematocrit drop following hip replacement now on high-dose prednisone for suspected hemolysis. INTERVAL HISTORY: Loan had an uneventful night overnight. Her hemoglobin is stable in the 6.7 range. She started prednisone 1 mg/kg daily yesterday. GUILLERMO is positive confirming a warm antibody, and her May 18 type and screen confirmed IgG autoantibody. Today, I discussed with Loan starting immune globulin 1000 mg/kg per 2 days as additional treatment to try to raise her hemoglobin/hematocrit. I reviewed risks, benefits and side effects including but not limited to the very low risk of a reaction to the immunoglobulin, the need for a daily infusion for 2 days. IMPRESSION: Autoimmune hemolytic anemia with acute hematocrit drop following hip replacement in the setting of recent chronically elevated LDH and reticulocyte count strongly arguing for ongoing hemolysis. Interval imaging of extremities and chest negative for evidence of hematoma. PLAN: 1. Continue prednisone 1 mg/kg daily. 2. IVIG 1000 mg/kg (80 grams) daily for 2 days. Order written. Discussed with pharmacist. 3. Avoid transfusions to prevent hemolysis. 4. Given the patient's post splenectomy status, continue to have low threshold for starting antibiotics empirically should the patient spike fever and making sure to panculture, etc. Will continue to follow. [facility]
--- NOTE | 2019-06-28 13:49 | IPNPDOC ---
Subjective Date Seen The patient was seen on 06/28/19. Subjective Chief Complaint/HPI Ms. Cho is a 64 year old female who was admitted for osteoarthritis with total left hip arthroplasty on 06/25/19. 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 Pt is s/p splenectomy in 2007. Pt remains asymptomatic. She is on day 2 Prednisone and is scheduled to start Privigen infusion x 2 days this afternoon. General: Reports: Normal Appetite; Denies: Chills, Night Sweats, Fatigue, Malaise Constitutional: Denies: Chills, Fever, Night Sweats Eyes: Denies: Pain ENT: Denies: Head Aches Skin: Reports: Breakdown; Denies: Rash Pulmonary: Denies: Dyspnea, Cough Cardiovascular: Denies: Chest Pain, Palpitations, Orthopnea, Paroxysmal Noc. Dyspnea, Edema, Lt Headedness Gastrointestinal: Denies: Nausea, Vomiting, Abdominal Pain, Diarrhea, Constipation Genitourinary: Denies: Dysuria, Retention Hematologic: Denies: Bruising, Bleeding Excessively Musculoskeletal: Reports: Joint Pain (mild - mod pain over L hip with ambulation); Denies: Neck Pain, Back Pain, Muscle Pain, Spasms Neurological: Denies: Weakness, Numbness, Change in speech, Confusion Psych: Reports: Mood Normal Other systems Objective Physical Examination General Exam: Positive: Alert, Cooperative, No Acute Distress Eye Exam: Positive: Conjunctiva & lids normal, EOMI; Negative: Sclera icteric ENT Exam: Positive: Atraumatic, Mucous membr. moist/pink, Pharynx Normal Neck Exam: Positive: Supple; Negative: thyromegaly Chest Exam: Positive: Clear to auscultation, Normal air movement Heart Exam: Positive: Rate Normal, Regular Rhythm, Normal S1, Normal S2; Negative: Murmurs, Rubs Telemetry: Positive: No significant arrhythmia Abdomen Exam: Positive: Normal bowel sounds, Soft; Negative: Tenderness Extremity Exam: Negative: Clubbing, Cyanosis, Edema Skin Exam: Positive: Nl turgor and temperature Neuro Exam: Positive: Normal Speech, Cranial Nerves 3-12 NL Psych Exam: Positive: Mood NL, Oriented x 3 Assessment /Plan Assessment Ms. Cho is a 64 year old female who was admitted for osteoarthritis with total left hip arthroplasty on 06/25/19. She remains hospitalized due to autoimmune hemolytic anemia, with a drop in hct following her left hip replacem ent. Pt is s/p splenectomy in 2007. Pt anemia was previously managed by Dr. Leigh who has since retired. She is on day 2 high dose Prednisone and is scheduled to start Privigen infusion x 2 days this afternoon. Autoimmune hemolytic anemia, with acute hct decrease following Total Hip Arthroplasty - Diagnosed in 2007 with possibly an anti-IgG auto antibody. Treated with steroids, ultimately splenectomy, lost to followup - CT left hip is negative for hematoma; pt remains asymptomatic - Hgb remains 6.7, LDH 214, retic count 144 - Dr. Harper is on consult and continues management -on day 2 Prednisone -starts infusion IVIG today x 2 days -no transfusions as suspected ongoing hemolysis and to prevent hemolysis -panculture & start abx empirically if pt becomes febrile - Patient also has anti britta antibody however as per Dr Harper and Blood bank director this is not the culprit of the hemolysis Shortness of breath - CXR 06/27 revealed no acute findings - currently resolved - continue to encourage hourly use of incentive spirometry and Acapella devices Osteoarthritis s/p total left total hip arthroplasty - continued management per orthopedics Hypertension - Continue Valsartan, Metoprolol DMII - ISS with FBS achs - Consistent carbohydrate diet Hyperlipidemia - Continue Zetia and Crestor Over Active Bladder - Continue Oxybutynin Hypothyroidism - Continue Synthroid Plan/VTE VTE Prophylaxis Ordered?: Yes (Xarelto ) VS, I&O, 24H, Fishbone Vital Signs/I&O Vital Signs Date Time Temp Pulse Resp B/P (MAP) Pulse Ox O2 Delivery O2 Flow Rate FiO2 06/28/19 11:01 18 06/28/19 10:31 Room Air 06/28/19 08:13 144/50 06/28/19 06:00 98.5 69 96 06/27/19 07:15 1.0 I&O- Last 24 Hours up to 6 AM 06/28/19 06:00 Intake Total 2265 ml Output Total 0 ml Balance 2265 ml Laboratory Data 24H LABS Laboratory Tests 2 06/27/19 13:47: Reticulocyte # (auto) 144.5H, Percent Reticulocyte Count 7.8H, Reticulocyte Hem oglobin Equivalent 30.6, Anion Gap 5L, Glomerular Filtration Rate 49.9, Calcium Level 8.2L, Total Bilirubin 2.1H, Aspartate Amino Transf (AST/SGOT) 18, Alanine Aminotransferase (ALT/SGPT) 11L, Alkaline Phosphatase 54, Lactate Dehydrogenase 214, Total Protein 5.9L, Albumin 3.0L, Albumin/Globulin Ratio 1.03, 25-Hydroxy Vitamin D Total 33.2 06/27/19 17:01: Bedside Glucose (Misc Panel) 173H 06/27/19 20:45: Bedside Glucose (Misc Panel) 225H 06/28/19 07:38: Bedside Glucose (Misc Panel) 183H 06/28/19 07:55: Nucleated Red Blood Cells % (auto) 0.0, Anion Gap 6L, Glomerular Filtration Rate 41.9L, Calcium Level 8.3L, Magnesium Level 3.2H 06/28/19 11:50: Bedside Glucose (Misc Panel) 223H CBC/BMP Laboratory Tests 06/27/19 13:47 06/27/19 20:13 06/28/19 01:43 06/28/19 07:55 THIAGO BOSS PA-C Jun 28, 2019 13:49 HASMUKH RICE MD Jun 30, 2019 05:03
[2019-06-28] MEDS ORDERED: IMMUNE GLOBULIN 10% 80 GM in IV 1 EA IV ONE (14:00)
[2019-06-28 14:31] LABS: HEMATOCRIT 22.8 % (36.0-47.0)
[2019-06-28 14:33] LABS: HEMOGLOBIN 6.7 g/dl (12.0-15.5)
[2019-06-28] MEDS: RIVAROXABAN 10 MG TAB (XARELTO) PO SCH (18:25)
[2019-06-28] MEDS: ACETAMINOPHEN 500 MG TAB PO PRN (20:17)
[2019-06-28] MEDS: METOPROLOL SUCC *XL* 12.5MG PER 1/2 TAB (TopROL *XL*) PO SCH (20:17)
[2019-06-28 20:28] LABS: HEMATOCRIT 19.4 % (36.0-47.0); HEMOGLOBIN 5.8 g/dl (12.0-15.5)
[2019-06-29] VITALS (15 sets, daily range): BP systolic 127–162; BP diastolic 51–66
[2019-06-29] MEDS: traMADol 50 MG TAB PO PRN ×2 (01:36→20:32)
[2019-06-29] MEDS: LEVOTHYROXINE 100MCG TABLET (0.1MG) PO SCH (05:04)
[2019-06-29] MEDS: ACETAMINOPHEN 500 MG TAB PO PRN ×2 (05:05→20:32)
[2019-06-29] MEDS ORDERED: BISACODYL 10 MG SUPP PR PRN (05:15)
[2019-06-29 06:18] LABS: MEAN CORPUSCULAR HEMOGLOBIN 34.7 pg (27.0-33.0); MEAN CORPUSCULAR HGB CONC 30.6 g/dl (32.0-36.5); MEAN CORPUSCULAR VOLUME 113.3 fl (80.0-96.0); PLATELET COUNT, AUTOMATED 421 10^3/uL (150-450); RED BLOOD COUNT 1.73 10^6/uL (4.00-5.40); WHITE BLOOD COUNT 14.2 10^3/uL (4.0-10.0)
[2019-06-29 06:34] LABS: HEMATOCRIT 19.6 % (36.0-47.0)
[2019-06-29 06:44] LABS: CALCIUM LEVEL 8.4 MG/DL (8.8-10.2); CREATININE FOR GFR 1.19 MG/DL (0.55-1.30); GLOMERULAR FILTRATION RATE 48.5 (>45); MAGNESIUM LEVEL 2.9 MG/DL (1.8-2.4); POTASSIUM SERUM 3.9 MEQ/L (3.5-5.1)
[2019-06-29] MEDS: SENOKOT S TAB PO SCH ×2 (08:13→20:31)
[2019-06-29] MEDS: MOM 30ML SUSPENSION UDC PO SCH (08:13)
[2019-06-29] MEDS: EZETIMIBE 10 MG TAB (ZETIA) PO SCH (08:14)
[2019-06-29] MEDS: HumaLOG INSULIN (NovoLOG) PER UNIT SC SCH ×3 (08:14→17:41)
[2019-06-29] MEDS: OMEPRAZOLE 20 MG CAP PO SCH (08:14)
[2019-06-29] MEDS: buPROPion **SR TABLET** (ZYBAN) 150MG PO SCH (08:15)
[2019-06-29] MEDS: oxyBUTYnin 5 MG TAB PO SCH ×2 (08:15→20:31)
[2019-06-29] MEDS: predniSONE 20 MG TAB PO SCH (08:15)
[2019-06-29] MEDS: ROSUVASTATIN 10 MG TAB (CRESTOR) PO SCH (08:15)
[2019-06-29] MEDS: MIRALAX *UNIT DOSE* 17GM PACKET PO SCH (08:15)
[2019-06-29] MEDS: VALSARTAN 80 MG TAB (DIOVAN) PO SCH (08:15)
[2019-06-29] MEDS: SUCRALFATE 1 GM TAB PO SCH ×3 (08:15→20:31)
--- NOTE | 2019-06-29 11:21 | IPNPDOC ---
Text Note Date of Service The patient was seen on 06/29/19. NOTE Chief Complaint/HPI Ms. Cho is a 64 year old female who was admitted for osteoarthritis with total left hip arthroplasty on 06/25/19. 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 Pt is s/p splenectomy in 2007. Pt remains asymptomatic. She is continues on high dose Prednisone as directed by heme/onc. Per nursing, pt only received half the dose of her IVIG yesterday; I will discuss with Dr. Harper. She is seen this morning returning from PT - both pt and her therapist agree she did very well. Patient had some mild pain while walking, but 'nothing too bad.' Objective Physical Examination General Exam: Positive: Alert, Cooperative, No Acute Distress Eye Exam: Positive: Conjunctiva & lids normal, EOMI; Negative: Sclera icteric ENT Exam: Positive: Atraumatic, Mucous membr. moist/pink, Pharynx Normal Neck Exam: Positive: Supple; Negative: thyromegaly Chest Exam: Positive: Clear to auscultation, Normal air movement Heart Exam: Positive: Rate Normal, Regular Rhythm, Normal S1, Normal S2; Negative: Murmurs, Rubs Telemetry: Positive: No significant arrhythmia Abdomen Exam: Positive: Normal bowel sounds, Soft; Negative: Tenderness Extremity Exam: Negative: Clubbing, Cyanosis, Edema Skin Exam: Positive: Nl turgor and temperature Neuro Exam: Positive: Normal Speech, Cranial Nerves 3-12 NL Psych Exam: Positive: Mood NL, Oriented x 3 Assessment /Plan Assessment Ms. Cho is a 64 year old female who was admitted for osteoarthritis with total left hip arthroplasty on 06/25/19. She remains hospitalized due to autoimmune hemolytic anemia, with a drop in hct following her left hip replacement. Pt is s/p splenectomy in 2007. Pt anemia was previously managed by Dr. Leigh who has since retired. She is continues on high dose Prednisone as directed by heme/onc. Per nursing, pt only received half the dose of her IVIG yesterday; I will discuss with Dr. Harper. 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 Treated with steroids, ultimately splenectomy, lost to followup - Patient also has anti britta antibody however as per Dr Harper and Blood bank director this is not the culprit of the hemolysis - CT left hip is negative for hematoma; pt remains asymptomatic - Hgb today 6.0 - Dr. Harper is on consult and continues management -on day 3 Prednisone -IVIG infusion ordered x2 days -no transfusions due to suspected ongoing hemolysis and to prevent worsening hemolysis -panculture & start abx empirically if pt becomes febrile Shortness of breath - CXR 06/27 revealed no acute findings - currently resolved - continue to encourage hourly use of incentive spirometry and Acapella devices Osteoarthritis s/p total left hip arthroplasty - continued management per orthopedics Hypertension - Continue Valsartan, Metoprolol DMII - ISS with FBS achs - Consistent carbohydrate diet Hyperlipidemia - Continue Zetia and Crestor OAB - Continue Oxybutynin Hypothyroidism - Continue Synthroid VS,Fishbone, I+O VS, Fishbone, I+O Laboratory Tests 06/28/19 14:16 06/28/19 20:12 06/29/19 05:35 Vital Signs Date Time Temp Pulse Resp B/P (MAP) Pulse Ox O2 Delivery O2 Flow Rate FiO2 06/29/19 08:15 127/51 06/29/19 06:00 99.1 74 17 94 Room Air 06/27/19 07:15 1.0 l I&O- Last 24 Hours up to 6 AM 06/29/19 06:00 Intake Total 2310 ml Output Total 0 ml Balance 2310 ml THIAGO BOSS PA-C Jun 29, 2019 11:21 HASMUKH RICE MD Jun 30, 2019 05:05
[2019-06-29] MEDS: NORCO, ANEXSIA 5/325MG TABLET (HYDROcodone/ACETAMINOPHEN) PO PRN (13:36)
[2019-06-29] MEDS ORDERED: IMMUNE GLOBULIN 10% 80 GM in IV 1 EA IV ONE (14:00)
[2019-06-29] MEDS: METOPROLOL SUCC *XL* 12.5MG PER 1/2 TAB (TopROL *XL*) PO SCH (20:31)
[2019-06-29] MEDS: ENOXAPARIN 40 MG/0.4 ML SYRINGE (J1650) SC SCH (20:33)
[2019-06-30] MEDS: ACETAMINOPHEN 500 MG TAB PO PRN ×2 (03:11→12:43)
[2019-06-30] MEDS: LEVOTHYROXINE 100MCG TABLET (0.1MG) PO SCH (05:14)
[2019-06-30 06:00] VITALS: BP 149/56
[2019-06-30 07:21] LABS: HEMATOCRIT 17.3 % (36.0-47.0); MEAN CORPUSCULAR HEMOGLOBIN 35.8 pg (27.0-33.0); MEAN CORPUSCULAR HGB CONC 30.6 g/dl (32.0-36.5); MEAN CORPUSCULAR VOLUME 116.9 fl (80.0-96.0); PLATELET COUNT, AUTOMATED 443 10^3/uL (150-450); RED BLOOD COUNT 1.48 10^6/uL (4.00-5.40); WHITE BLOOD COUNT 10.3 10^3/uL (4.0-10.0)
[2019-06-30 07:22] LABS: HEMOGLOBIN 5.3 g/dl (12.0-15.5)
[2019-06-30 07:45] LABS: CALCIUM LEVEL 8.1 MG/DL (8.8-10.2); CREATININE FOR GFR 1.15 MG/DL (0.55-1.30); GLOMERULAR FILTRATION RATE 50.4 (>45); MAGNESIUM LEVEL 2.8 MG/DL (1.8-2.4); POTASSIUM SERUM 4.1 MEQ/L (3.5-5.1)
[2019-06-30] MEDS: SUCRALFATE 1 GM TAB PO SCH ×2 (08:21→16:24)
[2019-06-30] MEDS: ROSUVASTATIN 10 MG TAB (CRESTOR) PO SCH (08:21)
[2019-06-30] MEDS: buPROPion **SR TABLET** (ZYBAN) 150MG PO SCH (08:21)
[2019-06-30] MEDS: VALSARTAN 80 MG TAB (DIOVAN) PO SCH (08:21)
[2019-06-30] MEDS: HumaLOG INSULIN (NovoLOG) PER UNIT SC SCH ×3 (08:21→17:48)
[2019-06-30] MEDS: SENOKOT S TAB PO SCH ×2 (08:22→20:32)
[2019-06-30] MEDS: EZETIMIBE 10 MG TAB (ZETIA) PO SCH (08:22)
[2019-06-30] MEDS: oxyBUTYnin 5 MG TAB PO SCH ×2 (08:22→20:32)
[2019-06-30] MEDS: predniSONE 20 MG TAB PO SCH (08:22)
[2019-06-30] MEDS: MIRALAX *UNIT DOSE* 17GM PACKET PO SCH (08:22)
[2019-06-30] MEDS: MOM 30ML SUSPENSION UDC PO SCH (08:22)
[2019-06-30] MEDS: OMEPRAZOLE 20 MG CAP PO SCH (08:22)
[2019-06-30 14:00] VITALS: BP 151/57
--- NOTE | 2019-06-30 14:45 | IPNPDOC ---
Text Note Date of Service The patient was seen on 06/30/19. NOTE Chief Complaint/HPI Ms. Cho is a 64 year old female who was admitted for osteoarthritis with total left hip arthroplasty on 06/25/19. She remains hospitalized due to autoimmune hemolytic anemia with a drop in Hct following her hip replacement. Pt is s/p splenectomy in 2007. Pt remains asymptomatic. She is continues on high dose Prednisone as directed by heme/onc. Per nursing, pt only received half the dose of her IVIG 06/30/19; no change in her treatment per heme/onc. Pt is seen in bed this morning. Disappointed her Hgb decreased as she is ready to go home. She continues to be asymptomatic. We have discussed her lab findings and the plan for today and she understands. Objective Physical Examination General Exam: Positive: Alert, Cooperative, No Acute Distress Eye Exam: Positive: Conjunctiva & lids normal, EOMI; Negative: Sclera icteric ENT Exam: Positive: Atraumatic, Mucous membr. moist/pink, Pharynx Normal Neck Exam: Positive: Supple; Negative: thyromegaly Chest Exam: Positive: Clear to auscultation, Normal air movement Heart Exam: Positive: Rate Normal, Regular Rhythm, Normal S1, Normal S2; Negative: Murmurs, Rubs Telemetry: Positive: No significant arrhythmia Abdomen Exam: Positive: Normal bowel sounds, Soft; Negative: Tenderness Extremity Exam: Negative: Clubbing, Cyanosis, Edema Skin Exam: Positive: Nl turgor and temperature Neuro Exam: Positive: Normal Speech, Cranial Nerves 3-12 NL Psych Exam: Positive: Mood NL, Oriented x 3 Assessment /Plan Assessment Ms. Cho is a 64 year old female who was admitted for osteoarthritis with total left hip arthroplasty on 06/25/19. She remains hospitalized due to autoim mune hemolytic anemia, with a drop in hct following her left hip replacement. Pt is s/p splenectomy in 2007. Pt anemia was previously managed by Dr. Leigh who has since retired. She is continues on high dose Prednisone as directed by heme/onc. Per nursing, pt only received half the dose of her IVIG yesterday; I will discuss with Dr. Harper. 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 Treated with steroids, ultimately splenectomy, lost to followup - Patient also has anti britta antibody however as per Dr Harper and Blood bank director this is not the culprit of the hemolysis - CT left hip is negative for hematoma; pt remains asymptomatic - Hgb today 5.3; follow-up CBC - pending - Dr. Harper is on consult and continues management -on day 3 Prednisone -IVIG infusion x2 days completed; if truly hemolytic, next step would be Rituximab -Haptoglobin is normal which brings into question true hemolytic anemia. CT abd/pelvis to rule out GI Bleed. -no transfusions due to suspected ongoing hemolysis and to prevent worsening hemolysis -panculture & start abx empirically if pt becomes febrile Shortness of breath - CXR 06/27 revealed no acute findings - currently resolved - continue to encourage hourly use of incentive spirometry and Acapella devices Osteoarthritis s/p total left hip arthroplasty - continued management per orthopedics - currently working with PT and ambulating with rollator Hypertension - Continue Valsartan, Metoprolol DMII - ISS with FBS achs - Consistent carbohydrate diet Hyperlipidemia - Continue Zetia and Crestor OAB - Continue Oxybutynin Hypothyroidism - Continue Synthroid VS,Fishbone, I+O VS, Fishbone, I+O Laboratory Tests 06/30/19 06:43 Vital Signs Date Time Temp Pulse Resp B/P (MAP) Pulse Ox O2 Delivery O2 Flow Rate FiO2 06/30/19 08:21 149/56 06/30/19 06:00 98.4 57 17 97 Room Air 06/27/19 07:15 1.0 I&O- Last 24 Hours up to 6 AM 06/30/19 06:00 Intake Total 2850 ml Balance 2850 ml THIAGO BOSS PA-C Jun 30, 2019 14:45
[2019-06-30 15:35] LABS: MEAN CORPUSCULAR HEMOGLOBIN 35.2 pg (27.0-33.0); MEAN CORPUSCULAR HGB CONC 30.5 g/dl (32.0-36.5); PLATELET COUNT, AUTOMATED 488 10^3/uL (150-450); RED BLOOD COUNT 1.82 10^6/uL (4.00-5.40); WHITE BLOOD COUNT 9.9 10^3/uL (4.0-10.0)
[2019-06-30 15:41] LABS: MEAN CORPUSCULAR VOLUME 115.4 fl (80.0-96.0)
[2019-06-30 15:42] LABS: HEMOGLOBIN 6.4 g/dl (12.0-15.5)
[2019-06-30] MEDS: NORCO, ANEXSIA 5/325MG TABLET (HYDROcodone/ACETAMINOPHEN) PO PRN (17:55)
--- NOTE | 2019-06-30 18:01 | REP ---
CT of the abdomen and pelvis without IV or bowel contrast: Comparison is 01/11/2019. The visualized lung rodriguez are unremarkable. The unenhanced hepatic parenchyma is homogeneous. The gallbladder and pancreas are unremarkable. The the patient has a splenectomy. Splenosis is again noted in the left upper quadrant, unchanged. The adrenals are unremarkable. The unenhanced kidneys are unremarkable. The abdominal aorta is unremarkable. There is no retroperitoneal adenopathy or mass. There is no bowel distension. There is descending colon/sigmoid colon diverticulosis without diverticulitis. There is no bowel distension or obstruction. There is no free fluid. The mesentery is unremarkable. Pelvis: The appendix is unremarkable. The bladder is unremarkable. There is no ascites or adenopathy. There are bilateral hip arthroplasties resulting in beam hardening artifact and image degradation. Impression: There is no free intraperitoneal fluid. There is diverticulosis without diverticulitis. There is left upper quadrant splenosis in this patient with splenectomy. This is unchanged. Otherwise, negative CT study of the abdomen and pelvis. Electronically Signed by Negrito Moses MD 06/30/2019 05:53 P
--- NOTE | 2019-06-30 19:37 | IPN ---
DATE: 06/30/2019 DIAGNOSES: 1. History of autoimmune hemolytic anemia diagnosed in 2007, status post high-dose prednisone followed by a splenectomy. 2. Admitted for elective hip replacement, complicated by hematocrit drop. No evidence of autoimmune hemolytic anemia given haptoglobin is normal, but direct antiglobulin test (GUILLERMO) is positive. INTERVAL HISTORY: Ms. Cho reports feeling fine. Over the last 2 days her hemoglobin has waxed and waned between approximately 6.5 and 5.5, currently 6.4. Because haptoglobin is high normal, it is clear she is not actively hemolyzing. I have recommended the team go ahead with a 2 units red blood cell (RBC) transfusion with premed Benadryl and Tylenol. Looking for source of hematocrit drop, CT abdomen and pelvis without contrast is negative for evidence an occult bleed in terms of a retroperitoneal bleed. Previously hip CT and hip x-ray were negative for evidence of bleed or hematoma. Of some interest, the patient had a ferritin study in May 2019 elevated to 1079, absent any recent transfusion, and at the time of her diagnosis of her AIHA, ferritin was elevated in the 400-600 range. GIOVANNI checked in the past was negative as of February 2015. She has a history of autoimmune thyroid disease in 2008, treated with radioactive iodine. Hyperferritinemia can be associated with poorly controlled diabetes and is an acute-phase reactant, and this may be part and parcel of her postsurgical setting. IMPRESSION: A 64-year-old woman with personal history of autoimmune hemolytic anemia diagnosed in 2007, treated with high-dose prednisone taper followed by splenectomy. No subsequent episodes of hematocrit drop, admitted June 25 for elective hip replacement. Baseline hemoglobin on June 11 prior to surgery was 8.9. June 26, following surgery, it was registered as 7.2. Subsequently dropped to 6.7 and as low as 5. Without intervention other than high-dose prednisone, it seems to vacillate between 6 and 5. No clear evidence of hemolytic anemia based on normal haptoglobin; chronically mildly elevated LDH and AST but notably 06/27/2019, LDH normal to 214. Hyperferritinemia with ferritin just above 1000 without history of iron overload or hemochromatosis; possibly due to diabetes or as an acute-phase postsurgical reactant PLAN: 1. Would proceed with 2 units RBC transfusion, premedicating with abundant caution, 50 of Benadryl intravenous (IV) and 650 of Tylenol. 2. For the present, continue high-dose prednisone with gastrointestinal (GI) prophylaxis. 3. The patient remains at fairly high risk for thromboembolic events, and barring another significant hematocrit drop recommend continuing at least prophylactic dose anticoagulation with enoxaparin during inpatient stay. 4. Given this patient's somewhat complex hematologic history, would recommend observation for 48 hours after the transfusion to make sure no new hematocrit drop prior to considering home discharge. As long as stable, she will need outpatient followup with hematology within 10 days of discharge. Will continue to follow. KETURAH
[2019-06-30] MEDS: METOPROLOL SUCC *XL* 12.5MG PER 1/2 TAB (TopROL *XL*) PO SCH (20:32)
[2019-06-30] MEDS: SUCRALFATE SUSP 1GM/10ML UD PO SCH (20:32)
[2019-06-30] MEDS: ENOXAPARIN 40 MG/0.4 ML SYRINGE (J1650) SC SCH (20:32)
[2019-06-30] MEDS ORDERED: ACETAMINOPHEN TAB 650MG DOSE (2X325MG) PO ONE (23:15)
[2019-06-30] MEDS ORDERED: diphenhydrAMINE INJ 50MG/ML VIAL (J1200) IV ONE (23:15)
[2019-06-30 23:30] VITALS: BP 152/60
[2019-06-30 23:48] VITALS: BP 141/59
[2019-07-01] VITALS (8 sets, daily range): BP systolic 131–168; BP diastolic 50–94
[2019-07-01] MEDS: SUCRALFATE SUSP 1GM/10ML UD PO SCH ×3 (05:29→22:09)
[2019-07-01] MEDS: LEVOTHYROXINE 100MCG TABLET (0.1MG) PO SCH (05:29)
[2019-07-01 06:30] LABS: HEMATOCRIT 24.8 % (36.0-47.0); HEMOGLOBIN 7.9 g/dl (12.0-15.5); MEAN CORPUSCULAR HEMOGLOBIN 34.5 pg (27.0-33.0); MEAN CORPUSCULAR HGB CONC 31.9 g/dl (32.0-36.5); MEAN CORPUSCULAR VOLUME 108.3 fl (80.0-96.0); PLATELET COUNT, AUTOMATED 426 10^3/uL (150-450); RED BLOOD COUNT 2.29 10^6/uL (4.00-5.40)
[2019-07-01 06:47] LABS: CALCIUM LEVEL 8.3 MG/DL (8.8-10.2); CREATININE FOR GFR 1.05 MG/DL (0.55-1.30); POTASSIUM SERUM 3.8 MEQ/L (3.5-5.1)
[2019-07-01 08:00] LABS: ALBUMIN 2.3 GM/DL (3.2-5.2); BILIRUBIN,DIRECT 0.4 MG/DL (0.0-0.2); BILIRUBIN,TOTAL 1.2 MG/DL (0.2-1.0); TOTAL PROTEIN 7.2 GM/DL (6.4-8.2)
[2019-07-01] MEDS: HumaLOG INSULIN (NovoLOG) PER UNIT SC SCH ×3 (08:29→16:49)
[2019-07-01] MEDS: buPROPion **SR TABLET** (ZYBAN) 150MG PO SCH (08:30)
[2019-07-01] MEDS: EZETIMIBE 10 MG TAB (ZETIA) PO SCH (08:30)
[2019-07-01] MEDS: predniSONE 20 MG TAB PO SCH (08:30)
[2019-07-01] MEDS: VALSARTAN 80 MG TAB (DIOVAN) PO SCH (08:30)
[2019-07-01] MEDS: oxyBUTYnin 5 MG TAB PO SCH ×2 (08:30→21:07)
[2019-07-01] MEDS: SENOKOT S TAB PO SCH ×2 (08:30→21:00)
[2019-07-01] MEDS: ROSUVASTATIN 10 MG TAB (CRESTOR) PO SCH (08:31)
[2019-07-01] MEDS: OMEPRAZOLE 20 MG CAP PO SCH (08:31)
[2019-07-01] MEDS: NORCO, ANEXSIA 5/325MG TABLET (HYDROcodone/ACETAMINOPHEN) PO PRN ×3 (08:34→21:07)
[2019-07-01] MEDS: MIRALAX *UNIT DOSE* 17GM PACKET PO SCH (09:00)
[2019-07-01] MEDS: MOM 30ML SUSPENSION UDC PO SCH (09:00)
--- NOTE | 2019-07-01 10:49 | IPNPDOC ---
Text Note Date of Service The patient was seen on 07/01/19. NOTE NOTE Chief Complaint/HPI Ms. Cho is a 64 year old female who was admitted for osteoarthritis with total left hip arthroplasty on 06/25/19. She remains hospitalized due to au toimmune hemolytic anemia with a drop in hct following her hip replacement. Pt is s/p splenectomy in 2007. Pt remains asymptomatic. She is continues on high dose Prednisone as directed by heme/onc. Per nursing, pt only received half the dose of her IVIG 06/30/19; no change in her treatment per heme/onc. Pt is seen in bed this morning. She is doing very well and excited that her transfusion yielded positive results. Pt has been taking Fe supplements at home as advised by various friends; we discussed her elevated Ferritin levels and that there is no current indication that she requires iron supplements. Pt agreed to take direction from heme/onc on d/c regarding managing her anemia. Objective Physical Examination General Exam: Positive: Alert, Cooperative, No Acute Distress Eye Exam: Positive: Conjunctiva & lids normal, EOMI; Negative: Sclera icteric ENT Exam: Positive: Atraumatic, Mucous membr. moist/pink, Pharynx Normal Neck Exam: Positive: Supple; Negative: thyromegaly Chest Exam: Positive: Clear to auscultation, Normal air movement Heart Exam: Positive: Rate Normal, Regular Rhythm, Normal S1, Normal S2; Negative: Murmurs, Rubs Telemetry: Positive: No significant arrhythmia Abdomen Exam: Positive: Normal bowel sounds, Soft; Negative: Tenderness Extremity Exam: Negative: Clubbing, Cyanosis, Edema Skin Exam: Positive: Nl turgor and temperature Neuro Exam: Positive: Normal Speech, Cranial Nerves 3-12 NL Psych Exam: Positive: Mood NL, Oriented x 3 Assessment /Plan Assessment Ms. Cho is a 64 year old female who was admitted for osteoarthritis with total left hip arthroplasty on 06/25/19. She remains hospitalized due to autoimmune hemolytic anemia, with a drop in hct following her left hip replacement. Pt is s/p splenectomy in 2007. Pt anemia was previously managed by Dr. Leigh who has since retired. She is continues on high dose Prednisone as directed by heme/onc. Per nursing, pt only received half the dose of her IVIG yesterday; I will discuss with Dr. Harper. 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 Treated with steroids, ultimately splenectomy, lost to followup - Patient also has anti britta antibody however as per Dr Harper and Blood bank director this is not the culprit of the hemolysis - CT left hip is negative for hematoma; pt remains asymptomatic - Dr. Harper is on consult and continues management -on day 4 Prednisone -IVIG infusion x2 days completed; however haptoglobin is normal which indicates hemolysis is unlikely at this time -CT abd/pelvis to rule out GI Bleed - no evidence of bleeding. Previous CT of L hip - no evidence of bleeding -transfused 2 units PRBCs 06/30/19 with positive H&H response - hgb 7.9, hct 24.8 -panculture & start abx empirically if pt becomes febrile -continue Lovenox for DVT prophy while inpatient - monitor H&H for 24 hours and d/c as appropriate. Hyperferritinemia - Ferritin elevated to >1000 - Pt reported to me that she has been taking Fe supplements at home; advised to d/c unless directed by heme/onc - Dr. Harper aware Osteoarthritis s/p total left hip arthroplasty - continued management per orthopedics; cleared by ortho - currently working with PT and ambulating with rollator Hypertension - Continue Valsartan, Metoprolol DMII - ISS with FBS achs - Consistent carbohydrate diet Hyperlipidemia - Continue Zetia and Crestor OAB - Continue Oxybutynin Hypothyroidism - Continue Synthroid Shortness of breath - CXR 06/27 revealed no acute findings - currently resolved - continue to encourage hourly use of incentive spirometry and Acapella devices Dispo: d/c home within 24-48 hours; services per PFS; f/u with Dr. Harper - 10 days. f/u with PCP 1 week. VS,Fishbone, I+O VS, Fishbone, I+O Laboratory Tests 06/30/19 15:22 07/01/19 06:15 Vital Signs Date Time Temp Pulse Resp B/P (MAP) Pulse Ox O2 Delivery O2 Flow Rate FiO2 07/01/19 09:04 18 07/01/19 08:30 131/50 07/01/19 05:15 98.8 60 99 07/01/19 04:21 Room Air 06/27/19 07:15 1.0 I&O- Last 24 Hours up to 6 AM 07/01/19 06:00 Intake Total 3290 ml Balance 3290 ml THIAGO BOSS PA-C Jul 01, 2019 10:49
[2019-07-01 16:07] LABS: HEMATOCRIT 30.5 % (36.0-47.0); HEMOGLOBIN 9.7 g/dl (12.0-15.5); MEAN CORPUSCULAR HEMOGLOBIN 33.8 pg (27.0-33.0); MEAN CORPUSCULAR HGB CONC 31.8 g/dl (32.0-36.5); MEAN CORPUSCULAR VOLUME 106.3 fl (80.0-96.0); PLATELET COUNT, AUTOMATED 455 10^3/uL (150-450); RED BLOOD COUNT 2.87 10^6/uL (4.00-5.40); WHITE BLOOD COUNT 9.7 10^3/uL (4.0-10.0)
[2019-07-01] MEDS: glipiZIDE (GLUCOTROL) 5 MG TAB PO SCH (18:27)
[2019-07-01 20:56] LABS: HEMATOCRIT 31.2 % (36.0-47.0); HEMOGLOBIN 9.9 g/dl (12.0-15.5); MEAN CORPUSCULAR HEMOGLOBIN 33.9 pg (27.0-33.0); MEAN CORPUSCULAR HGB CONC 31.7 g/dl (32.0-36.5); MEAN CORPUSCULAR VOLUME 106.8 fl (80.0-96.0); PLATELET COUNT, AUTOMATED 484 10^3/uL (150-450); RED BLOOD COUNT 2.92 10^6/uL (4.00-5.40); WHITE BLOOD COUNT 10.5 10^3/uL (4.0-10.0)
[2019-07-01] MEDS ORDERED: HumaLOG INSULIN (NovoLOG) PER UNIT SC SCH (21:00)
[2019-07-01] MEDS: ENOXAPARIN 40 MG/0.4 ML SYRINGE (J1650) SC SCH (21:08)
[2019-07-01] MEDS: METOPROLOL SUCC *XL* 12.5MG PER 1/2 TAB (TopROL *XL*) PO SCH (21:18)
[2019-07-02 03:55] LABS: HEMOGLOBIN 9.2 g/dl (12.0-15.5); MEAN CORPUSCULAR HEMOGLOBIN 33.9 pg (27.0-33.0); MEAN CORPUSCULAR HGB CONC 31.7 g/dl (32.0-36.5); PLATELET COUNT, AUTOMATED 469 10^3/uL (150-450); RED BLOOD COUNT 2.71 10^6/uL (4.00-5.40)
[2019-07-02 04:18] LABS: CALCIUM LEVEL 8.1 MG/DL (8.8-10.2); CREATININE FOR GFR 1.13 MG/DL (0.55-1.30); GLOMERULAR FILTRATION RATE 51.4 (>45); POTASSIUM SERUM 4.3 MEQ/L (3.5-5.1)
[2019-07-02] MEDS: LEVOTHYROXINE 100MCG TABLET (0.1MG) PO SCH (05:29)
[2019-07-02 06:00] VITALS: BP 178/76
[2019-07-02] MEDS: SUCRALFATE SUSP 1GM/10ML UD PO SCH (06:46)
[2019-07-02] MEDS ORDERED: LOVE1INJ SC (06:47)
[2019-07-02] MEDS: OMEPRAZOLE 20 MG CAP PO SCH (07:41)
[2019-07-02] MEDS: HumaLOG INSULIN (NovoLOG) PER UNIT SC SCH (07:41)
[2019-07-02 07:42] VITALS: BP 178/76
[2019-07-02] MEDS: ROSUVASTATIN 10 MG TAB (CRESTOR) PO SCH (07:42)
[2019-07-02] MEDS: buPROPion **SR TABLET** (ZYBAN) 150MG PO SCH (07:42)
[2019-07-02] MEDS: glipiZIDE (GLUCOTROL) 5 MG TAB PO SCH (07:42)
[2019-07-02] MEDS: predniSONE 20 MG TAB PO SCH (07:42)
[2019-07-02] MEDS: SENOKOT S TAB PO SCH (07:42)
[2019-07-02] MEDS: VALSARTAN 80 MG TAB (DIOVAN) PO SCH (07:42)
[2019-07-02] MEDS: EZETIMIBE 10 MG TAB (ZETIA) PO SCH (07:43)
[2019-07-02] MEDS: oxyBUTYnin 5 MG TAB PO SCH (07:43)
[2019-07-02] MEDS: MIRALAX *UNIT DOSE* 17GM PACKET PO SCH (07:45)
[2019-07-02] MEDS: MOM 30ML SUSPENSION UDC PO SCH (07:45)
[2019-07-02] MEDS ORDERED: PRED20TA PO (08:10)
[2019-07-02] MEDS ORDERED: OMEP-218 PO (08:12)
[2019-07-02 08:44] LABS: HEMATOCRIT 29.7 % (36.0-47.0); HEMOGLOBIN 9.6 g/dl (12.0-15.5); MEAN CORPUSCULAR HEMOGLOBIN 34.4 pg (27.0-33.0); MEAN CORPUSCULAR HGB CONC 32.3 g/dl (32.0-36.5); MEAN CORPUSCULAR VOLUME 106.5 fl (80.0-96.0); PLATELET COUNT, AUTOMATED 474 10^3/uL (150-450); RED BLOOD COUNT 2.79 10^6/uL (4.00-5.40); WHITE BLOOD COUNT 10.7 10^3/uL (4.0-10.0)
--- NOTE | 2019-07-06 10:09 | DSES ---
DATE OF ADMISSION: 06/25/2019 DATE OF DISCHARGE: 07/02/2019 ATTENDING PHYSICIAN: Dr. Abelardo Montanez ADMISSION DIAGNOSIS: Left hip osteoarthritis. OTHER DIAGNOSES: Type 2 diabetes. Thyroid disease. Depression. Obesity. DISCHARGE DIAGNOSIS: Left hip osteoarthritis status post left total hip arthroplasty and autoimmune hemolytic anemia. HOSPITAL COURSE: The patient is a pleasant 64-year-old female patient with progressively worsening left hip pain and stiffness who was admitted on the day of surgery for left hip total arthroplasty. Surgery went well and was without complications. Hospital course was complicated secondary to autoimmune hemolytic anemia for which hematology/oncology was consulted. The patient was placed on prednisone and managed with transfusions. She was up with physical therapy per their protocol, weightbearing as tolerated on the left lower extremity. Deep venous thrombosis (DVT) prophylaxis will be Lovenox per protocol as well as thromboembolic deterrent (CONRAD) stockings. Preoperative medications and diet will be resumed along with oral pain medications for pain control. Postoperative instructions to include but not limited to wound monitoring and activity limitations were provided to the patient. Continue postoperative hemolytic anemia management and DVT prophylaxis with Dr. Harper in 10 days and primary care provider in 1 week. Followup in our office in 7-10 days for surgical followup. Please see the patient's medical record for further details.
== END 2019-07-02 12:31 | disposition home or self-care (01) | DRG 470 ==
LOC: M SDC 05:31 → EDSTATUS 07:30 → M MS5PR 11:55 → M SDC 12:10 → M MS5PR 12:11
PROVIDERS: ADMIT Orthopaedic Surgery; ATTEND Orthopaedic Surgery
PROC: 0SRB0JZ Replacement of Left Hip Joint with Synthetic Substitute, Open Approach (ICD-10-PCS; principal; 2019-06-25 07:30)
DX: M16.12 Unilateral primary osteoarthritis, left hip (principal); D59.1 Other autoimmune hemolytic anemias; J98.11 Atelectasis; Z88.5 Allergy status to narcotic agent; Z79.82 Long term (current) use of aspirin; Z79.4 Long term (current) use of insulin; E11.9 Type 2 diabetes mellitus without complications; E03.9 Hypothyroidism, unspecified; F32.9 Major depressive disorder, single episode, unspecified; E66.9 Obesity, unspecified; Z68.34 Body mass index [BMI] 34.0-34.9, adult; Z96.641 Presence of right artificial hip joint; Z96.651 Presence of right artificial knee joint; Z90.79 Acquired absence of other genital organ(s); Z87.891 Personal history of nicotine dependence; I10 Essential (primary) hypertension; E78.5 Hyperlipidemia, unspecified; Z90.81 Acquired absence of spleen; N32.81 Overactive bladder

== ENCOUNTER 2019-07-13 12:59 | Emergency (ER) | payer OTHER, MEDICAID ==
[~2019-07-13 12:59] MED LIST changes: +HYDR-3713 PO; +LOVE1INJ SC; +PRED20TA PO; +XARE10TA PO
[2019-07-13] MEDS ORDERED: XARE10TA (13:30)
[2019-07-13] MEDS ORDERED: HYDR-4571 (13:30)
--- NOTE | 2019-07-13 13:57 | REPVR ---
PROCEDURE INFORMATION: Exam: CT Maxillofacial Without Contrast Exam date and time: 07/13/2019 1:28 PM Age: 64 years old Clinical indication: Pain; Other: Fall; Additional info: Trauma TECHNIQUE: Imaging protocol: Computed tomography images of the face without contrast. Radiation optimization: All CT scans at this facility use at least one of these dose optimization techniques: automated exposure control; mA and/or kV adjustment per patient size (includes targeted exams where dose is matched to clinical indication); or iterative reconstruction. COMPARISON: No relevant prior studies available. FINDINGS: Orbits: Orbits are normal. Globes are unremarkable. Sinuses: Normal. No air-fluid levels. Bones/joints: No acute fracture. There are degenerative changes about the left temporomandibular joint. Soft tissues: There is right inferior frontal soft tissue swelling. IMPRESSION: No facial fracture. Electronically signed by: Kaley Carlson On 07/13/2019 13:57:37 PM
--- NOTE | 2019-07-13 14:05 | REPVR ---
PROCEDURE INFORMATION: Exam: CT Head Without Contrast Exam date and time: 07/13/2019 1:28 PM Age: 64 years old Clinical indication: Pain; Other: Fall; Additional info: Trauma TECHNIQUE: Imaging protocol: Computed tomography of the head without contrast. Radiation optimization: All CT scans at this facility use at least one of these dose optimization techniques: automated exposure control; mA and/or kV adjustment per patient size (includes targeted exams where dose is matched to clinical indication); or iterative reconstruction. COMPARISON: CT Head without contrast 10/07/2016 6:01 AM FINDINGS: Brain: There is no acute intracranial hemorrhage or mass effect. Mild diffuse volume loss is within the range of normal for patient age. There are small vessel ischemic changes within the periventricular and subcortical white matter, but the normal faulkner/white matter delineation is maintained. Chronic lacunar infarct involves the right thalamus. Ventricles: Normal. No ventriculomegaly. Bones/joints: Unremarkable. No acute fracture. Sinuses: Visualized sinuses are unremarkable. No fluid levels. Mastoid air cells: Visualized mastoid air cells are well aerated. Soft tissues: Unremarkable. IMPRESSION: No acute hemorrhage or calvarial fracture. Electronically signed by: Kaley Carlson On 07/13/2019 14:05:32 PM
--- NOTE | 2019-07-13 14:11 | REPVR ---
PROCEDURE INFORMATION: Exam: CT Cervical Spine Without Contrast Exam date and time: 07/13/2019 1:28 PM Age: 64 years old Clinical indication: Neck pain; Additional info: Trauma TECHNIQUE: Imaging protocol: Computed tomography images of the cervical spine without contrast. Radiation optimization: All CT scans at this facility use at least one of these dose optimization techniques: automated exposure control; mA and/or kV adjustment per patient size (includes targeted exams where dose is matched to clinical indication); or iterative reconstruction. COMPARISON: None available. FINDINGS: Vertebrae: No acute fracture. Normal alignment. Discs/Spinal canal/Neural foramina: There is moderate intervertebral disc space loss C5/6 and severe intervertebral disc space loss at C6/7. At C5/6, disc osteophyte complex and mild facet hypertrophy contribute to moderate right and severe left neural foraminal narrowing and mild canal stenosis. At C6/7 diffuse disc osteophyte and mild facet hypertrophy contribute to mild right neural foraminal narrowing. Soft tissues: Unremarkable. Lungs: Lung apices are normal. IMPRESSION: No acute findings. Electronically signed by: Kaley Carlson On 07/13/2019 14:11:05 PM
[2019-07-13] MEDS ORDERED: ADACEL/BOOSTRIX VACCINE (DIPHTH/PERTUSS/ACELL/TETANUS)0.5ML SYR (90715) IM ONE (14:30)
[2019-07-13 14:51] VITALS: O2SAT 94
[2019-07-13 15:40] VITALS: BP 165/72
== END 2019-07-13 16:11 | disposition home or self-care (01) ==
LOC: M ED 12:59 → EDBD 12:59 → M ED 16:11
DX: S09.90XA Unspecified injury of head, initial encounter (principal); S00.81XA Abrasion of other part of head, initial encounter; W19.XXXA Unspecified fall, initial encounter; Y92.099 Unspecified place in other non-institutional residence as the place of occurrence of the external cause; Y93.9 Activity, unspecified; Y99.9 Unspecified external cause status; E11.9 Type 2 diabetes mellitus without complications; I10 Essential (primary) hypertension; D64.9 Anemia, unspecified; K21.9 Gastro-esophageal reflux disease without esophagitis; F17.200 Nicotine dependence, unspecified, uncomplicated; Z79.4 Long term (current) use of insulin; Z79.899 Other long term (current) drug therapy; Z88.6 Allergy status to analgesic agent; Z88.5 Allergy status to narcotic agent

== ENCOUNTER → 2019-11-10 | Outpatient (CLI) | payer OTHER, MEDICAID ==
[~2019-11-10] MED LIST changes: +ALEN70TA74 PO; -ASPI81TA85 PO; +ASPI81TA86 PO; +B-12100021 PO; +FERR325T16 PO; +FOLI1TAB11 PO; +HYDR-4571; +MYRB25TA PO; +TRAZ-252 PO; +XARE10TA
--- NOTE | 2019-11-11 05:15 | REP ---
REASON: Tobacco abuse. Latest prior for comparison is 07/15/2016, a standard noncontrast-enhanced exam. As per the protocol, only lung window images were sent to the read station for interpretation. There is no change from the prior exam. There are no new abnormal nodules, masses, or opacities. Grossly, the mediastinum and pulmonary letty are unchanged. Grossly, the imaged upper abdomen and imaged osseous structures are unchanged. IMPRESSION: Lung-RADS category 2 exam. Electronically Signed by Jordi Caldwell DO 11/11/2019 04:34 P
== END ==
LOC: M RAD 14:05
PROVIDERS: ATTEND Internal Medicine Hematology & Oncology
DX: Z12.2 Encounter for screening for malignant neoplasm of respiratory organs (principal); F17.218 Nicotine dependence, cigarettes, with other nicotine-induced disorders

== ENCOUNTER 2019-11-11 08:33 | Outpatient (CLI) | payer OTHER, MEDICAID ==
[~2019-11-11] VITALS: Ht 154.9 cm; Wt 78.1 kg
[2019-11-11] VITALS (10 sets, daily range): BP systolic 140–177; BP diastolic 58–95
[~2019-11-11 08:33] MED LIST changes: -TRAZ-252 PO
[2019-11-11] MEDS ORDERED: dexameTHASONE 10 MG PO PO ONE (10:00)
[2019-11-11] MEDS ORDERED: diphenhydrAMINE 25 MG IV IV ONE (10:00)
[2019-11-11] MEDS ORDERED: riTUXimab 700 MG in NS 630 ML IV ONE ×3 (10:00)
[2019-11-22] MEDS ORDERED: TRAZ-252 PO (13:15)
== END 2019-11-11 14:50 | disposition home or self-care (01) ==
LOC: M INFU 08:33
PROVIDERS: ATTEND Internal Medicine Hematology & Oncology
DX: D59.1 Other autoimmune hemolytic anemias (principal)
CPT/HCPCS: 96375; 96413; 96415; J1200; J9312

== ENCOUNTER 2019-11-18 08:38 | Outpatient (CLI) | payer OTHER, MEDICAID ==
[~2019-11-18] VITALS: Ht 156.2 cm; Wt 78.1 kg
[2019-11-18] MEDS ORDERED: diphenhydrAMINE 50MG/ML VIAL (J1200) IV ONE (09:00)
[2019-11-18 09:16] LABS: HEMATOCRIT 35.4 % (36.0-47.0); HEMOGLOBIN 10.6 g/dl (12.0-15.5); MEAN CORPUSCULAR HGB CONC 29.9 g/dl (32.0-36.5); PLATELET COUNT, AUTOMATED 401 10^3/uL (150-450); RED BLOOD COUNT 3.03 10^6/uL (4.00-5.40); WHITE BLOOD COUNT 8.2 10^3/uL (4.0-10.0)
[2019-11-18 09:20] LABS: MEAN CORPUSCULAR VOLUME 116.8 fl (80.0-96.0)
[2019-11-18] MEDS ORDERED: riTUXimab (SUBSEQUENT INFUSIONS) IV ONE ×3 (09:30)
[2019-11-18 09:37] LABS: BLOOD UREA NITROGEN 19 MG/DL (7-18); CREATININE FOR GFR 0.93 MG/DL (0.55-1.30); GLUCOSE, FASTING 172 MG/DL (70-100)
[2019-11-18 09:38] LABS: CALCIUM LEVEL 8.1 MG/DL (8.8-10.2); CARBON DIOXIDE LEVEL 26 MEQ/L (21-32); CHLORIDE LEVEL 109 MEQ/L (98-107); GLOMERULAR FILTRATION RATE > 60.0 (>45); POTASSIUM SERUM 4.1 MEQ/L (3.5-5.1); SODIUM LEVEL 143 MEQ/L (136-145)
[2019-11-18 09:50] VITALS: BP 146/81
[2019-11-18 10:22] VITALS: BP 137/60
[2019-11-18 10:45] VITALS: BP 161/64
[2019-11-18 11:20] VITALS: BP 181/77
[2019-11-22] MEDS ORDERED: TRAZ-252 PO (13:15)
== END 2019-11-18 12:45 | disposition home or self-care (01) ==
LOC: M INFU 08:38
PROVIDERS: ATTEND Internal Medicine Hematology & Oncology
DX: D59.1 Other autoimmune hemolytic anemias (principal)
CPT/HCPCS: 36592; 80048; 85027; 96413; 96415; J1200; J9312

== ENCOUNTER → 2019-11-25 | Outpatient (CLI) | payer OTHER, MEDICAID ==
[~2019-11-25] VITALS: Ht 152.4 cm; Wt 78.1 kg
[~2019-11-25] MED LIST changes: +NS IV ONE; +RITUXIMAB IV ONE; +TRAZ-252 PO; +cloNIDine 0.1 MG TAB PO ONE; +diphenhydrAMINE 50MG/ML VIAL (J1200) IV ONE
[2019-11-25 08:24] VITALS: BP 198/72
[2019-11-25 08:45] VITALS: BP 190/81
[2019-11-25 09:24] VITALS: BP 190/81
[2019-11-25 09:45] VITALS: BP 184/71
== END ==
LOC: M INFU 08:09
PROVIDERS: ATTEND Internal Medicine Hematology & Oncology
DX: D59.1 Other autoimmune hemolytic anemias (principal)
CPT/HCPCS: 96413; J1200; J9312

== ENCOUNTER 2019-12-09 08:00 | Outpatient (CLI) | payer OTHER, MEDICAID ==
[~2019-12-09 08:00] MED LIST changes: -NS IV ONE; -RITUXIMAB IV ONE; -cloNIDine 0.1 MG TAB PO ONE; -diphenhydrAMINE 50MG/ML VIAL (J1200) IV ONE
[2019-12-09] MEDS ORDERED: RITUXIMAB ONE (08:30)
[2019-12-09] MEDS ORDERED: riTUXimab 500MG 50ML VIAL (RITUXAN) (J9312 PER 10MG) ONE (08:30)
[2019-12-09] MEDS ORDERED: diphenhydrAMINE 50MG/ML VIAL (J1200) ONE (10:03)
[2019-12-09] MEDS ORDERED: diphenhydrAMINE 50MG/ML VIAL (J1200) As Ordered ONE (10:03)
[2019-12-09] MEDS ORDERED: cloNIDine 0.1 MG TAB ONE (12:00)
[2020-01-14 16:08] LABS: HEMATOCRIT 42.4 % (36.0-47.0); MEAN CORPUSCULAR HEMOGLOBIN 33.6 pg (27.0-33.0); MEAN CORPUSCULAR HGB CONC 30.7 g/dl (32.0-36.5); MEAN CORPUSCULAR VOLUME 109.6 fl (80.0-96.0); PLATELET COUNT, AUTOMATED 384 10^3/uL (150-450); RED BLOOD COUNT 3.87 10^6/uL (4.00-5.40); WHITE BLOOD COUNT 11.4 10^3/uL (4.0-10.0)
== END 2019-12-09 15:25 | disposition home or self-care (01) ==
LOC: M INFU 08:00
PROVIDERS: ATTEND Internal Medicine Hematology & Oncology
DX: D59.1 Other autoimmune hemolytic anemias (principal)
CPT/HCPCS: 36415; 36592; 80053; 85025; 96375; 96413; 96415; J1200; J9312

== ENCOUNTER → 2020-05-08 | Outpatient (REF) | payer OTHER, MEDICAID | LOC: M SFHCPLAZ 11:54 | PROVIDERS: ATTEND Family Medicine | DX: Z01.818 Encounter for other preprocedural examination (principal); E11.9 Type 2 diabetes mellitus without complications ==

== ENCOUNTER → 2020-05-16 | Outpatient (REF) | payer OTHER, MEDICAID ==
[~2020-05-16] MED LIST changes: -ALEN70TA74 PO; +ALEN70TA82 PO
[2020-05-16 13:57] LABS: BASO # 0.1 10^3/uL (0.0-0.2); BASO % 0.8 % (0.0-1.0); EOS # 0.2 10^3/uL (0.0-0.5); EOS % 1.9 % (0.0-3.0); HEMOGLOBIN 14.3 g/dl (12.0-15.5); LYMPH # 1.4 10^3/uL (1.5-5.0); LYMPH % 17.2 % (24.0-44.0); MEAN CORPUSCULAR HEMOGLOBIN 32.2 pg (27.0-33.0); MEAN CORPUSCULAR HGB CONC 31.1 g/dl (32.0-36.5); MEAN CORPUSCULAR VOLUME 103.6 fl (80.0-96.0); MONO # 0.8 10^3/uL (0.0-0.8); NEUTROPHILS # 5.8 10^3/uL (1.5-8.5); NEUTROPHILS % 70.5 % (36.0-66.0); PLATELET COUNT, AUTOMATED 357 10^3/uL (150-450); RED BLOOD COUNT 4.44 10^6/uL (4.00-5.40); WHITE BLOOD COUNT 8.3 10^3/uL (4.0-10.0)
[2020-05-16 15:49] LABS: CALCIUM LEVEL 8.9 MG/DL (8.8-10.2); CREATININE FOR GFR 1.4 MG/DL (0.55-1.30); GLOMERULAR FILTRATION RATE 40.1 (>45); POTASSIUM SERUM 4.4 MEQ/L (3.5-5.1)
== END ==
LOC: M SFHCPLAZ 09:49
PROVIDERS: ATTEND Family Medicine
DX: Z01.818 Encounter for other preprocedural examination (principal)

== ENCOUNTER 2020-06-25 08:32 | Emergency (ER) | payer OTHER, MEDICAID ==
[~2020-06-25] VITALS: Ht 152.4 cm; Wt 84.1 kg
[2020-06-25] MEDS ORDERED: dexameTHASONE 20MG/5ML VIAL (J1100 PER 1MG) IV ONE (09:00)
[2020-06-25] MEDS: COMBIVENT RESPIMAT 100-20MCG INHALER 4GM INH SCH ×3 (09:21→10:06)
--- NOTE | 2020-06-25 09:26 | REP ---
INDICATION: DYSPNEA/COUGH. COMPARISON: 06/27/2019; CT 11/10/2019 TECHNIQUE: Portable AP upright FINDINGS: The lungs are well inflated. Some underlying chronic interstitial changes which are mild. There is cardiomegaly with left atrial and ventricular enlargement. Some venous hypertension is seen. No perez edema. Early interstitial edema difficult to exclude in the setting of some underlying fibrosis and pulmonary venous hypertension. The aorta is calcified and tortuous without gross aneurysm. The airway is intact. Linda are symmetric without gross mass. Degenerative changes in the spine and shoulders again seen. No free air under the diaphragm. IMPRESSION: Cardiomegaly with some left ventricular enlargement and venous hypertension. Underlying fibrosis makes early interstitial edema difficult to exclude but no perez pulmonary edema, dense consolidation or pleural effusion identified. <Electronically signed by Ryan Louis > 06/25/20 [id number]
--- NOTE | 2020-06-25 09:37 | ECGEPIP ---
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
[2020-06-25 09:47] LABS: BASO # 0.1 10^3/uL (0.0-0.2); BASO % 0.6 % (0.0-1.0); EOS # 0.2 10^3/uL (0.0-0.5); EOS % 1.5 % (0.0-3.0); HEMATOCRIT 40.3 % (36.0-47.0); HEMOGLOBIN 12.5 g/dl (12.0-15.5); LYMPH # 1.1 10^3/uL (1.5-5.0); LYMPH % 8.9 % (24.0-44.0); MEAN CORPUSCULAR HEMOGLOBIN 32.4 pg (27.0-33.0); MEAN CORPUSCULAR VOLUME 104.4 fl (80.0-96.0); MONO % 7.9 % (2.0-8.0); NEUTROPHILS # 9.9 10^3/uL (1.5-8.5); NEUTROPHILS % 80.4 % (36.0-66.0); PLATELET COUNT, AUTOMATED 314 10^3/uL (150-450); RED BLOOD COUNT 3.86 10^6/uL (4.00-5.40); WHITE BLOOD COUNT 12.4 10^3/uL (4.0-10.0)
[2020-06-25 09:58] LABS: INR 0.92; PROTHROMBIN TIME 12.5 SECONDS (12.5-14.3)
--- OUTSIDE RECORDS SUMMARY | 2020-06-25 10:00 | CCD ---
Author Author [facility] Organization [facility] Address Unknown Phone Unavailable Care Team Providers Care Car Lubricator Name Role Phone Vince Tucker Unavailable PROBLEMS Type Condition ICD9-CM Code [id number] Code Onset Dates Condition S tatus W/U Status Risk SNOMED Code Notes Problem Asplenia Q89.01 Active confirmed 689827355 Problem Chronic anemia D64.9 Active confirmed 33630 8006 Problem Acquired hypothyroidism E03.9 Active confirmed 259374890 Problem Gastroesophageal reflux disease, esophagitis pre sence not specified K21.9 Active confirmed 895862422 Problem Essential hypertension I10 Active confirmed 74611489 Problem Seasonal allergies J30.2 Active confirmed 4 74743591 Problem 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 Activ e confirmed 775975475 Problem Type 2 diabetes mellitus without complications E11 .9 Active confirmed 519605861 Problem 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.42 Active confirmed 78786674 Problem 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 A ctive confirmed 1003067 Problem 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 Active confirmed 918049406 Problem Diabetes mellitus without me ntion of complication, type II or unspecified type, not stated as uncontrolled 250.00 Activ e confirmed 285805086 Problem Unilateral primary osteoarthritis, left hip M16.12 Active confirmed 756289990721033 Problem Depression, unspecified depression type F32.9 Active confirmed 44997953 Problem Age-related nuclear cataract, right eye H25.11 Active confirmed 353320066110123 Problem Overactive bladder N32.81 Active confirmed 7 11896175 Problem Chronic hemolytic anemia D58.9 Active confirmed 367845765 Problem Hyperlipidemia, unspecified hyperlipidemia type E7 8.5 Active confirmed 43207091 Problem Hypertension, unspecified type I10 Active confir med 54405211 Problem Smoker F17.200 Active confirmed 45523688 Problem Type 2 diabetes mellitus with other specified complication E11.69 Active confirmed 070644686753 Problem Type 2 diabetes mellitus with diabetic nephropathy E11.21 Active confirmed 019153911 ALLERGIES Allergen (clinical drug ingredient) Drug/Non Drug Allergy do cumented on EMR Reaction Allergy Type Onset Date Status Metformin Nausea/Vomiting Non Drug Allergy Act shanice ENCOUNTERS from 1955 to 2020-06-08 Encounter Location Date Provider Diagnosis [facility] Urology [address] [place] [address] Jun Vince Tucker 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 D 59.1 IMMUNIZATIONS Vaccine Route Administration Date Status Meningococcal B 0.5mL (Bexsero) IM Intramuscular September 23, 2019 Administered Meningococcal B (VFC) 0.5mL (Bexsero) IM Intramuscular May 28 020 Administered Meningococcal 0.5mL (Menveo Groups A,C,Y & W-135) IM Intramuscul ar May 28, 2019 Administered Pneumococcal Adult 0.5mL (Pneumovax 23) IM Intramuscular November Administered Pneumococcal 0.5mL (Prevnar 13) IM Intramuscular May 28, 2019 Administered Meningococcal IM Intramuscular November 07, 2011 Administered Pneumococcal Adult 0.5mL (Pneumovax 23) IM Intramuscular September 23, 2019 Administered Influenza (6mo & up) Fluzone IM Intramuscular Feb 13, 2012 Ad ministered Influenza (6mo & up) Fluzone IM Intramuscular Feb 06, 2011 Ad ministered HIB 0.5mL IM Intramuscular November 04, 2019 Administered SOCIAL HISTORY Tobacco Use: Social History Observation Description Date Details (start date - stop date) Former Smoker Sex Assigned At : Social History Observation Description Sex Assigned At Unknown Audit Question Answer Notes Interpretation: Alcohol Education Total Score: 0 Drug and Alcohol Question Answer Notes Interpretation: No problems reported Total Score: 0 Tobacco Use: Question Answer Notes Are you a: former smoker How long has it been since you last smoked? 5-10 years REASON FOR REFERRAL No Information VITAL SIGNS No information MEDICATIONS Medication SIG (Take, Route, Frequency, Duration) Notes Start Da te End Date Status Alendronate Sodium 70 MG 1 tablet 30 minutes before t he first food, beverage or medicine of the day with plain water Orally one time per week for 30 day(s) Nov, Active Myrbetriq 25 MG 1 tablet Orally Once a day Active Ezetimibe 10 MG TAKE ONE TABLET BY MOUTH @8AM for 90 Active Ferrous Gluconate 324 (38 Fe) MG 1 tablet with water o r juice between meals Orally every other day for 27 Ac tive Alcohol Prep Swabs 1 use for fingersticks BID and prn topically Twice a day DX 250.02 for 30 day(s) Active PredniSONE 20 MG TAKE TWO TABLETS BY MOUTH EVERY DAY Oral Active Lipitor 40 MG 1 tab(s) Orally Once a day for 30 day(s) Apr, Not-Taking Escitalopram Oxalate 10 MG 1 tablet Orally Once a day for 28 Active OneTouch UltraSoft Lancets One touch lancets Dx: 250.0 2 3 times a day for 30 day(s) Active Insulin Lispro (Human) 100Unit/mL 1 injection subcutan eously ac per sliding scale Active Cetirizine HCl 10 MG 1 cap orally once daily for 30 Days Active Insulin Syringe-Needle U-100 1 syringe icd:250.02 iddm subcutaneously Ocnea day at bedtime for 30 days Active OneTouch Ultra II Test Strips One touch test strips 3 times a day Dx: 250.02 for 30 day(s) Active IBU 800 MG 1 tablet Orally Twice a day as needed for 30 day(s) Dec, Active Jardiance 25 MG TAKE ONE TABLET BY MOUTH @8AM for 90 Active Glucometer as directed _ [place] [address] days September, Active Levothyroxine Sodium 200 MCG 1 cap orally once daily for 30 Days Active GlipiZIDE 10 MG TAKE ONE TABLET BY MOUTH @8AM and TAKE ONE TABLE T @8PM for 90 Active BuPROPion HCl ER (SR) 150 MG TAKE ONE TABLET BY MOUTH @8AM for 28 Active Rosuvastatin Calcium 40 MG TAKE ONE TABLET BY MOUTH @8AM for 28 Active Omeprazole 20 MG 20 MG PO BID for 25 Not-Taking Sucralfate 1 GM 1 tab Orally once daily for 30 days Active Metoprolol Succinate ER 25 MG 1/2 tablet Orally Once a day for 9 0 days Jun, Active Trazodone HCl 50 MG 1/2 tablet at bedtime as nee ded Orally Once a day for 30 day(s) Nov, Active Valsartan 80 MG 1 tab Orally once daily for 30 Days Active Omeprazole 20mg 20mg 1 tablet oral Once a day for 30 days Active Folic Acid 1 MG 1 tablet Orally Once a day for 90 days Active PROCEDURES No Information RESULTS No Results REASON FOR VISIT folic acid MEDICAL (GENERAL) HISTORY Type Description Date Medical History HTN Medical History Asplenia Medical History Depression Medical History Hypothyroidism Medical History Hyperlipidemia Medical History Overactive bladder Medical History GERD Medical History Type 2 diabetes on insulin: 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 Leigh in the past) Medical History Echocardiogram (05/07/2018- Dr. Cerda) LVEF 60-65%, some mild evidence of hypertensive heart disease with abnormal diastolic relaxation, mildly increased pulmonary artery systolic pressure, mildly dilated left atrium, and mild insufficiency of all heart valves. Medical History Blood type is A+ with an anti-K IgG auto antibody Surgical History Splenectomy 10/2008 Surgical History Right knee replacement (Dr. Abelardo Montanez) 09/2009 Surgical History D&C and uterine polypectomy Dr. Mata 05/2010 Surgical History Complete hysterectomy with b ilateral salpingo-oophorectomy and Birch urethropexy (Dr. Mata) 08/2011 Surgical History Right total hip arthroplasty (Dr. Abelardo Montanez) 10/2016 Surgical History Right Carpal Tunnel Release Surgical History Colonoscopy (Dr. Israel hammond); 2019 had upper endoscopy in addition to colonoscopy Surgical History Left total hip arthroplasty (Dr. 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 (ICD-10 - D59.1) PLAN OF TREATMENT Medication Medication Name Sig Start Date Stop Date Omeprazole 20mg 20mg 1 tablet oral Once a day for 30 days Folic Acid 1 MG 1 tablet Orally Once a day for 90 days Ezetimibe 10 MG TAKE ONE TABLET BY MOUTH @8AM for 90 Trazodone HCl 50 MG 1/2 tablet at bedtime as nee ded Orally Once a day for 30 day(s) Nov, Jardiance 25 MG TAKE ONE TABLET BY MOUTH @8AM for 90 GlipiZIDE 10 MG TAKE ONE TABLET BY MOUTH @8AM and TAKE ONE TABLE T @8PM for 90 Next Appt Details Provider Name:Vince Tucker, 2020-06-05 8 03:00:00 PM, [address] [place], [address], Insurance Providers Payer Name Payer Address Payer Phone Insured Name Patient Relati onship to Insured Coverage Start Date Coverage End Date MEDICAID [employer] [address] [facility] [address] [facility] [address] [address] [facility] [id number] ELI RETANA
--- OUTSIDE RECORDS SUMMARY | 2020-06-25 10:00 | CCD ---
Author Author [facility] Organization [facility] Address Unknown Phone Unavailable Care Team Providers Care Wellness Assistant Name Role Phone Vince Tucker Unavailable PROBLEMS Type Condition ICD9-CM Code [id number] Code Onset Dates Condition S tatus W/U Status Risk SNOMED Code Notes Problem Asplenia Q89.01 Active confirmed 006536221 Problem Chronic anemia D64.9 Active confirmed 15334 8006 Problem Acquired hypothyroidism E03.9 Active confirmed 899686883 Problem Gastroesophageal reflux disease, esophagitis pre sence not specified K21.9 Active confirmed 307248672 Problem Essential hypertension I10 Active confirmed 59498061 Problem Seasonal allergies J30.2 Active confirmed 4 95482275 Problem 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 Activ e confirmed 972425263 Problem Type 2 diabetes mellitus without complications E11 .9 Active confirmed 090895863 Problem 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.42 Active confirmed 51431023 Problem 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 A ctive confirmed 9688677 Problem 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 Active confirmed 929503374 Problem Diabetes mellitus without me ntion of complication, type II or unspecified type, not stated as uncontrolled 250.00 Activ e confirmed 786274121 Problem Unilateral primary osteoarthritis, left hip M16.12 Active confirmed 961793937484199 Problem Depression, unspecified depression type F32.9 Active confirmed 83063683 Problem Age-related nuclear cataract, right eye H25.11 Active confirmed 510729754609294 Problem Overactive bladder N32.81 Active confirmed 7 67555786 Problem Chronic hemolytic anemia D58.9 Active confirmed 088107738 Problem Hyperlipidemia, unspecified hyperlipidemia type E7 8.5 Active confirmed 67402602 Problem Hypertension, unspecified type I10 Active confir med 70996161 Problem Smoker F17.200 Active confirmed 02154399 Problem Type 2 diabetes mellitus with other specified complication E11.69 Active confirmed 925027179744 Problem Type 2 diabetes mellitus with diabetic nephropathy E11.21 Active confirmed 833403256 ALLERGIES Allergen (clinical drug ingredient) Drug/Non Drug Allergy do cumented on EMR Reaction Allergy Type Onset Date Status Metformin Nausea/Vomiting Non Drug Allergy Act shanice ENCOUNTERS from 1955 to 2020-06-08 Encounter Location Date Provider Diagnosis [facility] Urology [address] [place] [address] Jun Vince Tucker Gastroesophageal reflux disease, esophag itis presence not specified K21.9 IMMUNIZATIONS Vaccine Route Administration Date Status Meningococcal [...] Assigned At Unknown Audit Question Answer Notes Total Score: 0 Interpretation: Alcohol Education Drug and Alcohol Question Answer Notes Total Score: 0 Interpretation: No problems reported Tobacco Use: Question Answer Notes Are you [...] Active Glucometer as directed _ [place] for [address] days September, Active Levothyroxine Sodium 200 MCG [...] Information RESULTS No Results REASON FOR VISIT omeprazole and trazodone MEDICAL (GENERAL) HISTORY Type Description Date Medical History HTN Medical History Asplenia Medical History Depression Medical History Hypothyroidism Medical History Hyperlipidemia Medical History Overactive bladder Medical History GERD Medical History Type 2 diabetes on 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 Ward Medical History Chronic anemia (hemolytic s/ p [...] Treatment Notes Treatm ent Clinical Notes Jun, Gastroesophageal reflux dise ase, esophagitis presence not specified (ICD-10 - K21.9) PLAN OF TREATMENT Medication Medication Name Sig [...] Name:Vince Tucker, 2020-06-05 8 03:00:00 PM, [address] [place], [address], Insurance Providers Payer Name Payer Address Payer Phone Insured Name Patient Relati onship to Insured Coverage Start Date Coverage End Date MEDICAID [employer] [address] [facility] [address] ELI RETANA [facility] [address] [address] [facility] [address] ELI RETANA self
--- OUTSIDE RECORDS SUMMARY | 2020-06-25 10:01 | CCD ---
Author Author [facility] Organization [facility] Address Unknown Phone Unavailable Care Team Providers Care Protohistorian Name Role Phone Vince Tucker Unavailable PROBLEMS Type Condition ICD9-CM Code [id number] Code Onset Dates Condition S tatus SNOMED Code Notes Problem Asplenia Q89.01 Active 865937638 Problem Chronic anemia D64.9 Active 536911083 Problem Acquired hypothyroidism E03.9 Active 85542498 2 Problem Gastroesophageal reflux disease, esophagitis pre sence not specified K21.9 Active 760659252 Problem Essential hypertension I10 Active 38497837 Problem Seasonal allergies J30.2 Active 288292942 Problem USP (current) use of insulin Z79.4 Activ e 572047076 Problem Type 2 diabetes mellitus without complications E11 .9 Active 779297731 Problem 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.42 Active 47123110 Problem 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 A ctive 9005363 Problem 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 Active 900010379 Problem Diabetes mellitus without me ntion of complication, type II or unspecified type, not stated as uncontrolled 250.00 Ac tive 704845675 Problem Unilateral primary osteoarthritis, left hip M16.12 Active 393199566375550 Problem Depression, unspecified depression type F32.9 Active 75992426 Problem Age-related nuclear cataract, right eye H25.11 Active 472675640502112 Problem Overactive bladder N32.81 Active 618671449 Problem Chronic hemolytic anemia D58.9 Active 7129673 01 Problem Hyperlipidemia, unspecified hyperlipidemia type E7 8.5 Active 96249666 Problem Hypertension, unspecified type I10 Active 3 3161354 Problem Smoker F17.200 Active 03767403 Problem Type 2 diabetes mellitus with other specified complication E11.69 Active 833739558158 Problem Type 2 diabetes mellitus with diabetic nephropathy E11.21 Active 724887293 ALLERGIES Allergen (clinical drug ingredient) Drug/Non Drug Allergy do cumented on EMR Reaction Allergy Type Onset Date Status Metformin Nausea/Vomiting Non Drug Allergy Act shanice ENCOUNTERS from 1955 to 2020-05-28 Encounter Location Date Provider Diagnosis [address] [address] May, Vince Garrett Gastroesophageal reflux disease, esophag itis presence not specified K21.9 IMMUNIZATIONS Vaccine Route Administration Date Status Meningococcal B 0.5mL (Bexsero) IM Intramuscular September 23, 2019 Administered Meningococcal 0.5mL (Menveo Groups A,C,Y & W-135) IM Intramuscul ar May 28, 2019 Administered Pneumococcal Adult 0.5mL (Pneumovax 23) IM Intramuscular September 23, 2019 Administered Pneumococcal Adult 0.5mL (Pneumovax 23) IM Intramuscular November Administered Pneumococcal 0.5mL (Prevnar 13) IM Intramuscular May 28, 2019 Administered Meningococcal IM Intramuscular November 07, 2011 Administered Meningococcal B (VFC) 0.5mL (Bexsero) IM Intramuscular May 28 020 Administered Influenza (6mo & up) Fluzone IM [...] Notes Start Da te End Date Status Lipitor 40 MG 1 tab(s) Orally Once a day for 30 day(s) Apr, Not-Taking Escitalopram Oxalate 10 MG 1 tablet Orally Once a day for 28 Active Alendronate Sodium 70 MG 1 tablet 30 minutes before t he first food, beverage or medicine of the day with plain water Orally one time per week for 30 day(s) Nov, Active Myrbetriq 25 MG 1 tablet Orally Once a day Active OneTouch UltraSoft Lancets One touch lancets Dx: 250.0 2 3 times a day for 30 day(s) Active Insulin Lispro (Human) 100Unit/mL 1 injection subcutan eously ac per sliding scale Active Alcohol Prep Swabs 1 use for fingersticks BID and prn topically Twice a day DX 250.02 for 30 day(s) Active PredniSONE 20 MG TAKE TWO TABLETS BY MOUTH EVERY DAY Oral Active GlipiZIDE 10 MG TAKE ONE TABLET BY MOUTH @8AM and TAKE ONE TABLE T @8PM for 90 Active Folic Acid 1 MG 1 tablet Orally Once a day Active Levothyroxine Sodium 200 MCG 1 cap orally once daily for 30 Days Active Cetirizine HCl 10 MG 1 cap orally once daily for 30 Days Active Glucometer as directed _ [place] for [address] days September, Active Omeprazole 20 MG 20 MG PO BID for 25 Not-Taking BuPROPion HCl ER (SR) 150 MG TAKE ONE TABLET BY MOUTH @8AM for 28 Active Omeprazole 20mg 20mg 1 tablet oral Once a day for 30 Active IBU 800 MG 1 tablet Orally Twice a day as needed for 30 day(s) Dec, Active Jardiance 25 MG TAKE ONE TABLET BY MOUTH @8AM for 90 Active Ferrous Gluconate 324 (38 Fe) MG 1 tablet with water o r juice between meals Orally every other day for 27 Ac tive Sucralfate 1 GM 1 tab Orally once daily for 30 days Active Ezetimibe 10 MG TAKE ONE TABLET BY MOUTH @8AM for 90 Active Insulin Syringe-Needle U-100 1 syringe icd:250.02 iddm subcutaneously Ocnea day at bedtime for 30 days Active Rosuvastatin Calcium 40 MG TAKE ONE TABLET BY MOUTH @8AM for 28 Active Metoprolol Succinate ER 25 MG 1/2 tablet Orally Once a day for 9 0 days Jun, Active OneTouch Ultra II Test Strips One touch test strips 3 times a day Dx: 250.02 for 30 day(s) Active Valsartan 80 MG 1 tab Orally once daily for 30 Days Active Trazodone HCl 50 MG 1/2 tablet at bedtime as nee ded Orally Once a day for 30 day(s) Nov, Active PROCEDURES No Information RESULTS No Results REASON FOR VISIT refills MEDICAL (GENERAL) HISTORY Type Description Date Medical History HTN Medical History Asplenia Medical History Depression Medical History Hypothyroidism Medical History Hyperlipidemia Medical History Overactive bladder Medical History GERD Medical History Type 2 diabetes on 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 Ward Medical History Chronic anemia (hemolytic [...] Notes Treatment Notes Treatm ent Clinical Notes May, Gastroesophageal reflux dise ase, esophagitis presence not specified (ICD-10 - K21.9) PLAN OF TREATMENT Medication Medication Name Sig Start Date Stop Date Omeprazole 20mg 20mg 1 tablet oral Once a day for 30 Trazodone HCl 50 MG 1/2 tablet at bedtime as nee ded Orally Once a day for 30 day(s) Nov, GlipiZIDE 10 MG TAKE ONE TABLET BY MOUTH @8AM and TAKE ONE TABLE T @8PM for 90 Ezetimibe 10 MG TAKE ONE TABLET BY MOUTH @8AM for 90 Jardiance 25 MG TAKE ONE TABLET BY MOUTH @8AM for 90 Next Appt Details Provider Name:Vince Tucker, 2020-06-05 8 03:00:00 PM, [address] [place], [address], Insurance Providers Payer Name Payer Address Payer Phone Insured Name Patient Relati onship to Insured Coverage Start Date Coverage End Date [employer]IE [employer] [address] [address] [facility] [phone] ELI RETANA MEDICAID [employer] [address] [facility] [address] ELI RETANA
--- OUTSIDE RECORDS SUMMARY | 2020-06-25 10:01 | CCD ---
Author Author [facility] Organization [facility] Address Unknown Phone Unavailable Care Team Providers Care Milk Route Supervisor Name Role Phone Hany Aden Unavailable PROBLEMS Type Condition ICD9-CM Code ETB15-BE Code Onset Dates Condition S tatus SNOMED Code Notes Problem Asplenia Q89.01 Active 205831655 Problem Chronic anemia D64.9 Active 320583228 Problem Acquired hypothyroidism E03.9 Active 58071444 2 Problem Gastroesophageal reflux disease, esophagitis pre sence not specified K21.9 Active 796428223 Problem Essential hypertension I10 Active 67037638 Problem Seasonal allergies J30.2 Active 077325653 Problem longterm (current) use of insulin Z79.4 Activ e 290711158 Problem Type 2 diabetes mellitus without complications E11 .9 Active 493856722 Problem 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.42 Active 12840269 Problem 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 A ctive 6184161 Problem 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 Active 069839166 Problem Diabetes mellitus without me ntion of complication, type II or unspecified type, not stated as uncontrolled 250.00 Ac tive 896928456 Problem Unilateral primary osteoarthritis, left hip M16.12 Active 924919069965435 Problem Depression, unspecified depression type F32.9 Active 08980563 Problem Age-related nuclear cataract, right eye H25.11 Active 379113713172409 Problem Overactive bladder N32.81 Active 629543443 Problem Chronic hemolytic anemia D58.9 Active 3765288 01 Problem Hyperlipidemia, unspecified hyperlipidemia type E7 8.5 Active 13804130 Problem Hypertension, unspecified type I10 Active 3 7831671 Problem Smoker F17.200 Active 57080859 Problem Type 2 diabetes mellitus with other specified complication E11.69 Active 214840242525 Problem Type 2 diabetes mellitus with diabetic nephropathy E11.21 Active 651685503 ALLERGIES Allergen (clinical drug ingredient) Drug/Non Drug Allergy do cumented on EMR Reaction Allergy Type Onset Date Status Metformin Nausea/Vomiting Non Drug Allergy Act shanice ENCOUNTERS from 1955 to 2020-05-17 Encounter Location Date Provider Diagnosis [address] [id number] 11 May, 2020 Hany Markie IMMUNIZATIONS Vaccine Route Administration Date Status Meningococcal [...] Notes Start Da te End Date Status Insulin Lispro (Human) 100Unit/mL 1 injection subcutan eously ac per sliding scale Active Omeprazole 20 MG 20 MG PO BID for 25 Not-Taking Ferrous Gluconate 324 (38 Fe) MG 1 tablet with water o r juice between meals Orally every other day for 27 Ac tive Alcohol Prep Swabs 1 use for fingersticks BID and prn topically Twice a day DX 250.02 for 30 day(s) Active Sucralfate 1 GM 1 tab Orally once daily for 30 days Active Levothyroxine Sodium 200 MCG 1 cap orally once daily for 30 Days Active Insulin Syringe-Needle U-100 1 syringe icd:250.02 iddm subcutaneously Ocnea day at bedtime for 30 days Active IBU 800 MG 1 tablet Orally Twice a day as needed for 30 day(s) Dec, Active Glucometer as directed _ Daily for [address] days September, Active Cetirizine HCl 10 MG 1 cap orally once daily for 30 Days Active Alendronate Sodium 70 MG 1 tablet 30 minutes before t he first food, beverage or medicine of the day with plain water Orally one time per week for 30 day(s) Nov, Active Trazodone HCl 50 MG 1/2 tablet at bedtime as nee ded Orally Once a day for 30 day(s) Nov, Not-Taking GlipiZIDE 10 MG TAKE ONE TABLET BY MOUTH @8AM and TAKE ONE TABLE T @8PM for 28 Active Escitalopram Oxalate 10 MG 1 tablet Orally Once a day for 28 Active OneTouch Ultra II Test Strips One touch test strips 3 times a day Dx: 250.02 for 30 day(s) Active Metoprolol Succinate ER 25 MG 1/2 tablet Orally Once a day for 9 0 days Jun, Active Folic Acid 1 MG 1 tablet Orally Once a day Active Rosuvastatin Calcium 40 MG TAKE ONE TABLET BY MOUTH @8AM for 28 Active OneTouch UltraSoft Lancets One touch lancets Dx: 250.0 2 3 times a day for 30 day(s) Active Jardiance 25 MG TAKE ONE TABLET BY MOUTH @8AM for 28 Active PredniSONE 20 MG TAKE TWO TABLETS BY MOUTH EVERY DAY Oral Active Valsartan 80 MG 1 tab Orally once daily for 30 Days Active Ezetimibe 10 MG TAKE ONE TABLET BY MOUTH @8AM for 28 Active BuPROPion HCl ER (SR) 150 MG TAKE ONE TABLET BY MOUTH @8AM for 28 Active Omeprazole 20mg 20mg 1 tablet oral Once a day for 30 Active Lipitor 40 MG 1 tab(s) Orally Once a day for 30 day(s) Apr, Not-Taking Myrbetriq 25 MG 1 tablet Orally Once a day Active PROCEDURES No Information RESULTS No Results REASON FOR VISIT Sign pre-op MEDICAL (GENERAL) HISTORY Type Description Date Medical History HTN Medical History Asplenia Medical History Depression Medical History Hypothyroidism Medical History Hyperlipidemia Medical History Overactive bladder Medical History GERD Medical History Type 2 diabetes on insulin: Analysis Manager Giovanna Ward Medical History Chronic anemia (hemolytic [...] No Information FUNCTIONAL STATUS No Information ASSESSMENTS No Information PLAN OF TREATMENT Next Appt Details Provider Name:Vince Tucker, 2020-05-05 8 09:00:00 AM, [address] [facility], [place], [address], Insurance Providers Payer Name Payer Address Payer Phone Insured Name Patient Relati onship to Insured Coverage Start Date Coverage End Date MEDICAID [place] [address] [facility] [id number] ELI RETANA [address] [address] [facility] [id number] ELI RETANA
--- OUTSIDE RECORDS SUMMARY | 2020-06-25 10:01 | CCD ---
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 Name Role Phone Lola Maldonado MD Unavailable Unavailable Lola Maldonado MD Unavailable Unavailable Lola Maldonado MD Unavailable Unavailable Lola Maldonado MD Unavailable Unavailable Lola Maldonado MD Unavailable Unavailable Lola Maldonado MD Unavailable Unavailable Lola Maldonado MD Unavailable Unavailable Lola Maldonado MD Unavailable Unavailable Lola Maldonado MD Unavailable Unavailable Lola Maldonado MD Unavailable Unavailable Lola Maldonado MD Unavailable Unavailable Lola Maldonado MD Unavailable Unavailable Loal Maldonado MD Unavailable Unavailable Lola Maldonado MD Unavailable Unavailable Lola Maldonado MD Unavailable Unavailable Lola Maldonado MD Unavailable Unavailable Lola Maldonado MD Unavailable Unavailable Lola Maldonado MD Unavailable Unavailable Lola Maldonado MD Unavailable Unavailable Lola Maldonado MD Unavailable Unavailable Lola Maldonado MD Unavailable Unavailable Lola Maldonado MD Unavailable Unavailable Lola Maldonado MD Unavailable Unavailable Lola Maldonado MD Unavailable Unavailable Lola Maldonado MD Unavailable Unavailable Lola Maldonado MD Unavailable Unavailable Lola Maldonado MD Unavailable Unavailable Lola Maldonado MD Unavailable Unavailable Lola Maldonado MD Unavailable Unavailable Lola Maldonado MD Unavailable Unavailable Lola Maldonado MD Unavailable Unavailable Lola Maldonado MD Unavailable Unavailable Lola Maldonado MD Unavailable Unavailable Lola Maldonado MD Unavailable Unavailable Lola Maldonado MD Unavailable Unavailable Lola Maldonado MD Unavailable Unavailable Lola Maldonado MD Unavailable Unavailable Lola Maldonado MD Unavailable Unavailable Lola Maldonado MD Unavailable Unavailable Lola Maldonado MD Unavailable Unavailable Lola Maldonado MD Unavailable Unavailable Lola Maldonado MD Unavailable Unavailable Lola Maldonado MD Unavailable Unavailable Lola Maldonado MD Unavailable Unavailable Lola Maldonado MD Unavailable Unavailable Lola Maldonado MD Unavailable Unavailable Lola Maldonado MD Unavailable Unavailable Lola Maldonado MD Unavailable Unavailable Lola Maldonado MD Unavailable Unavailable Lola Maldonado MD Unavailable Unavailable Lola Maldonado MD Unavailable Unavailable Lola Maldonado MD Unavailable Unavailable Lola Maldonado MD Unavailable Unavailable Lola Maldonado MD Unavailable Unavailable Lola Maldonado MD Unavailable Unavailable Loal Maldonado MD Unavailable Unavailable Lola Maldonado MD Unavailable Unavailable Lola Maldonado MD Unavailable Unavailable Lola Maldonado MD Unavailable Unavailable Lola Maldonado MD Unavailable Unavailable Lola Maldonado MD Unavailable Unavailable Lola Maldonado MD Unavailable Unavailable Lola Maldonado MD Unavailable Unavailable Lola Maldonado MD Unavailable Unavailable Lola Maldonado MD Unavailable Unavailable Lola Maldonado MD Unavailable Unavailable Lola Maldonado MD Unavailable Unavailable Lola Maldonado MD Unavailable Unavailable Lola Maldonado MD Unavailable Unavailable Lola Maldonado MD Unavailable Unavailable Lola Maldonado MD Unavailable Unavailable Lola Maldonado MD Unavailable Unavailable Lola Maldonado MD Unavailable Unavailable Lola Maldonado MD Unavailable Unavailable Lola Maldonado MD Unavailable Unavailable Lola Maldonado MD Unavailable Unavailable Lola Maldonado MD Unavailable Unavailable Lola Maldonado MD Unavailable Unavailable Lola Maldonado MD Unavailable Unavailable Lola Maldonado MD Unavailable Unavailable Lola Maldonado MD Unavailable Unavailable Lola Maldonado MD Unavailable Unavailable Lola Maldonado MD Unavailable Unavailable Lola Maldonado MD Unavailable Unavailable Lola Maldonado MD Unavailable Unavailable Lola Maldonado MD Unavailable Unavailable Lola Maldonado MD Unavailable Unavailable Lola Maldonado MD Unavailable Unavailable Lola Maldonado MD Unavailable Unavailable Fish, B Abelardo MALDONADO Unavailable Unavailable Fish, B Abelardo MALDONADO Unavailable Unavailable Fish, B Abelardo MALDONADO Unavailable Unavailable Fish, B Abelardo MALDONADO Unavailable Unavailable Fish, B Abelardo MALDONADO Unavailable Unavailable Fish, B Abelardo MALDONADO Unavailable Unavailable Fish, B Abelardo MALDONADO Unavailable Unavailable Fish, B Abelardo MALDONADO Unavailable Unavailable Fish, B Abelardo MALDONADO Unavailable Unavailable Fish, B Abelardo MALDONADO Unavailable Unavailable Fish, B Abelardo MALDONADO Unavailable Unavailable Fish, B Abelardo MALDONADO Unavailable Unavailable Fish, B Abelardo MALDONADO Unavailable Unavailable Fish, B Abelardo MALDONADO Unavailable Unavailable Fish, B Abelardo MALDONADO Unavailable Unavailable Fish, B Abelardo MALDONADO Unavailable Unavailable Fish, B Abelardo MALDONADO Unavailable Unavailable Fish, B Abelardo MALDONADO Unavailable Unavailable Fish, B Abelardo MALDONADO Unavailable Unavailable Fish, B Abelardo MALDONADO Unavailable Unavailable Fish, B Abelardo MALDONADO Unavailable Unavailable Fish, B Abelardo MALDONADO Unavailable Unavailable Fish, B Abelardo MALDONADO Unavailable Unavailable Fish, B Abelardo MALDONADO Unavailable Unavailable Fish, B Abelardo MALDONADO Unavailable Unavailable Fish, B Abelardo MALDONADO Unavailable Unavailable Fish, B Abelardo MALDONADO Unavailable Unavailable Fish, B Abelardo MALDONADO Unavailable Unavailable Fish, B Abelardo MALDONADO Unavailable Unavailable Fish, B Abelardo MALDONADO Unavailable Unavailable Fish, B Abelardo MALDONADO Unavailable Unavailable Fish, B Abelardo MALDONADO Unavailable Unavailable Fish, B Abelardo MALDONADO Unavailable Unavailable Fish, B Abelardo MALDONADO Unavailable Unavailable Fish, B Abelardo MALDONADO Unavailable Unavailable Fish, B Abelardo MALDONADO Unavailable Unavailable Fish, B Abelardo MALDONADO Unavailable Unavailable Fish, B Abelardo MALDONADO Unavailable Unavailable Fish, B Abelardo MALDONADO Unavailable Unavailable Fish, B Abelardo MALDONADO Unavailable Unavailable Fish, B Abelardo MALDONADO Unavailable Unavailable Fish, B Abelardo MALDONADO Unavailable Unavailable Fish, B Abelardo MALDONADO Unavailable Unavailable Fish, B Abelardo MALDONADO Unavailable Unavailable Fish, B Abelardo MALDONADO Unavailable Unavailable Fish, B Abelardo MALDONADO Unavailable Unavailable Fish, Nathan Zhou MD Unavailable Unavailable Fish, Nathan Zhou MD Unavailable Unavailable Fish, Nathan Zhou MD Unavailable Unavailable Fish, Nathan Zhou MD Unavailable Unavailable Fish, Nathan Zhou MD Unavailable Unavailable Fish, Nathan Zhou MD Unavailable Unavailable Fish, Nathan Zhou MD Unavailable Unavailable LIANG, Peter KAISER MD Unavailable Unavailable LIANG, Peter KAISER MD Unavailable Unavailable LIANG, Peter KAISER MD Unavailable Unavailable LIANG, Peter KAISER MD Unavailable Unavailable LIANG, L AWILDA MALDONADO Unavailable Unavailable LIANG, L AWILDA MALDONADO Unavailable Unavailable LIANG, L AWILDA MALDONADO Unavailable Unavailable LIANG, L AWILDA MALDONADO Unavailable Unavailable LIANG, L AWILDA MALDONADO Unavailable Unavailable LIANG, L AWILDA MALDONADO Unavailable Unavailable LIANG, L AWILDA MALDONADO Unavailable Unavailable LIANG, L AWILDA MALDONADO Unavailable Unavailable LIANG, L AWILDA MALDONADO Unavailable Unavailable LIANG, L AWILDA MALDONADO Unavailable Unavailable LIANG, L AWILDA MALDONADO Unavailable Unavailable LIANG, L AWILDA MALDONADO Unavailable Unavailable LIANG, L AWILDA MALDONADO Unavailable Unavailable LIANG, L AWILDA MALODNADO Unavailable Unavailable LIANG, L AWILDA MALDONADO Unavailable Unavailable LIANG, L AWILDA MALDONADO Unavailable Unavailable LIANG, L AWILDA MALDONADO Unavailable Unavailable LIANG, L AWILDA MALDONADO Unavailable Unavailable LIANG, L AWILDA MALDONADO Unavailable Unavailable LIANG, L AWILDA MALDONADO Unavailable Unavailable LIANG, L AWILDA MALDONADO Unavailable Unavailable LIANG, L AWILDA MALDONADO Unavailable Unavailable LIANG, L AWILDA MALDONADO Unavailable Unavailable LIANG, L AWILDA MALDONADO Unavailable Unavailable LIANG, L AWILDA MALDONADO Unavailable Unavailable LIANG, L AWILDA MALDONADO Unavailable Unavailable LIANG, L AWILDA MALDONADO Unavailable Unavailable LIANG, L AWILDA MALDONADO Unavailable Unavailable LIANG, L AWILDA MALDONADO Unavailable Unavailable LIANG, L AWILDA MALDONADO Unavailable Unavailable LIANG, L AWILDA MALDONADO Unavailable Unavailable LIANG, L AWILDA MALDONADO Unavailable Unavailable LIANG, L AWILDA MALDONADO Unavailable Unavailable LIANG, L AWILDA MALDONADO Unavailable Unavailable LIANG, L AWILDA MALDONADO Unavailable Unavailable LIANG, L AWILDA MALDONADO Unavailable Unavailable LIANG, L AWILDA MALDONADO Unavailable Unavailable LIANG, L AWILDA MALDONADO Unavailable Unavailable LIANG, L AWILDA MALDONADO Unavailable Unavailable DRAZEK, I JIGAR PA Unavailable Unavailable DRAZEK, I JIGAR PA Unavailable Unavailable DRAZEK, I JIGAR PA Unavailable Unavailable DRAZEK, I JIGAR PA Unavailable Unavailable DRAZEK, I JIGAR PA Unavailable Unavailable DRAZEK, I JIGAR PA Unavailable Unavailable DRAZEK, I JIGAR PA Unavailable Unavailable DRAZEK, I JIGAR PA Unavailable Unavailable DRAZEK, I JIGAR PA Unavailable Unavailable DRAZEK, I JIGAR PA Unavailable Unavailable DRAZEK, I JIGAR PA Unavailable Unavailable DRAZEK, I JIGAR PA Unavailable Unavailable DRAZEK, I JIGAR PA Unavailable Unavailable DRAZEK, I JIGAR PA Unavailable Unavailable DRAZEK, I JIGAR PA Unavailable Unavailable DRAZEK, I JIGAR PA Unavailable Unavailable DRAZEK, I JIGAR PA Unavailable Unavailable DRAZEK, I JIGAR PA Unavailable Unavailable DRAZEK, I JIGAR PA Unavailable Unavailable DRAZEK, I JIGAR PA Unavailable Unavailable DRAZEK, I JIGAR PA Unavailable Unavailable DRAZEK, I JIGAR PA Unavailable Unavailable DRAZEK, I JIGAR PA Unavailable Unavailable DRAZEK, I JIGAR PA Unavailable Unavailable DRAZEK, I JIGAR PA Unavailable Unavailable DRAZEK, I JIGAR PA Unavailable Unavailable DRAZEK, I JIGAR PA Unavailable Unavailable DRAZEK, I JIGAR PA Unavailable Unavailable DRAZEK, I JIGAR PA Unavailable Unavailable DRAZEK, I JIGAR PA Unavailable Unavailable CHAN ARAIZA MD Unavailable Unavailable CHAN ARAIZA MD Unavailable Unavailable CHAN ARAIZA MD Unavailable Unavailable CHAN ARAIZA MD Unavailable Unavailable CHAN ARAIZA MD Unavailable Unavailable CHAN ARAIZA MD Unavailable Unavailable CHAN ARAIZA MD Unavailable Unavailable CHAN ARAIZA MD Unavailable Unavailable CHAN ARAIZA MD Unavailable Unavailable CHAN ARAIZA MD Unavailable Unavailable CHAN ARAIZA MD Unavailable Unavailable CHAN ARAIZA MD Unavailable Unavailable CHAN ARAIZA MD Unavailable Unavailable CHAN ARAIZA MD Unavailable Unavailable CHAN ARAIZA MD Unavailable Unavailable CHAN ARAIZA MD Unavailable Unavailable CHAN ARAIZA MD Unavailable Unavailable CHAN ARAIZA MD Unavailable Unavailable CHAN ARAIZA MD Unavailable Unavailable CHAN ARAIZA MD Unavailable Unavailable CHAN ARAIZA MD Unavailable Unavailable CHAN ARAIZA MD Unavailable Unavailable CHAN ARAIZA MD Unavailable Unavailable CHAN ARAIZA MD Unavailable Unavailable CHAN ARAIZA MD Unavailable Unavailable CHAN ARAIZA MD Unavailable Unavailable CHAN ARAIZA MD Unavailable Unavailable CHAN ARAIZA MD Unavailable Unavailable CHAN ARAIZA MD Unavailable Unavailable CHAN ARAIZA MD Unavailable Unavailable CHAN ARAIZA MD Unavailable Unavailable CHAN ARAIZA MD Unavailable Unavailable CHAN ARAIZA MD Unavailable Unavailable CHAN ARAIZA MD Unavailable Unavailable CHAN ARAIZA MD Unavailable Unavailable TEODORA, GILES MD Unavailable Unavailable TEODORA, GILES MD Unavailable Unavailable TEODORA, GILES MD Unavailable Unavailable TEODORA, GILES MD Unavailable Unavailable TEODORA, GILES MD Unavailable Unavailable TEODORA, GILES MD Unavailable Unavailable TEODORA, GILES MD Unavailable Unavailable TEODORA, GILES MD Unavailable Unavailable TEODORA, GILES MD Unavailable Unavailable TEODORA, GILES MD Unavailable Unavailable TEODORA, GILES MD Unavailable Unavailable TEODORA, GILES MD Unavailable Unavailable TEODORA, GILES MD Unavailable Unavailable TEODORA, GILES MD Unavailable Unavailable TEODORA, GILES MD Unavailable Unavailable TEODORA, GILES MD Unavailable Unavailable TEODORA, GILES MD Unavailable Unavailable TEODORA, GILES MD Unavailable Unavailable TEODORA, GILES MD Unavailable Unavailable Lb, Noaman MD Unavailable Unavailable Lb, Nocady MD Unavailable Unavailable Lb, Nocady MD Unavailable Unavailable Lb, Nocady MD Unavailable Unavailable LbNorma MD Unavailable Unavailable Lb, Norma MD Unavailable Unavailable LbNorma MD Unavailable Unavailable Lb, Nocady MD Unavailable Unavailable LbNorma MD Unavailable Unavailable Lb, Nocady MD Unavailable Unavailable Lb, Nocady MD Unavailable Unavailable LbNorma MD Unavailable Unavailable LbNorma MD Unavailable Unavailable LbNorma MD Unavailable Unavailable LbNorma MD Unavailable Unavailable LbNorma MD Unavailable Unavailable LbNorma MD Unavailable Unavailable Lb Nocady MD Unavailable Unavailable LbNorma MD Unavailable Unavailable LbNorma MD Unavailable Unavailable LbNorma MD Unavailable Unavailable LbNorma MD Unavailable Unavailable LbNorma MD Unavailable Unavailable LbNorma MD Unavailable Unavailable LbNorma MD Unavailable Unavailable Lb, Norma MD Unavailable Unavailable LbNorma MD Unavailable Unavailable LbNorma MD Unavailable Unavailable LbNorma MD Unavailable Unavailable LbNorma MD Unavailable Unavailable Esdras Izquierdo MD Unavailable Unavailable Esdras Izquierdo MD Unavailable Unavailable Esdras Izquierdo MD Unavailable Unavailable Esdras Izquierdo MD Unavailable Unavailable Esdras Izquierdo MD Unavailable Unavailable Esdras Izquierdo MD Unavailable Unavailable Esdras Izquierdo MD Unavailable Unavailable Esdras Izquierdo MD Unavailable Unavailable Esdras Izquierdo MD Unavailable Unavailable Esdras Izquierdo MD Unavailable Unavailable Esdras Izquierdo MD Unavailable Unavailable Esdras Izquierdo MD Unavailable Unavailable Izquierdo, Estela Moid MD Unavailable Unavailable Esdras Izquierdo Unavailable Unavailable Izquierdo, Estela Moid MD Unavailable Unavailable Izquierdo, Estela Moid MD Unavailable Unavailable IzquierdoDarcieul Moid Unavailable Unavailable Izquierdo Estela Moid MD Unavailable Unavailable Izquierdo, Estela Moid MD Unavailable Unavailable Izquierdo, Estela Moid MD Unavailable Unavailable Izquierdo, Estela Moid MD Unavailable Unavailable Izquierdo, Estela Moid MD Unavailable Unavailable Izquierdo, Estela Moid MD Unavailable Unavailable Izquierdo, Estela Moid MD Unavailable Unavailable Izquierdo, Estela Moid MD Unavailable Unavailable Izquierdo, Estela Moid MD Unavailable Unavailable Izquierdo, Estela Moid MD Unavailable Unavailable Izquierdo, Estela Moid MD Unavailable Unavailable Izquierdo, Estela Moid MD Unavailable Unavailable Izquierdo, Estela Moid MD Unavailable Unavailable Izquierdo, Estela Moid MD Unavailable Unavailable Izquierdo Estela Moid MD Unavailable Unavailable Izquierdo, Estela Moid MD Unavailable Unavailable Izquierdo, Estela Moid MD Unavailable Unavailable Izquierdo, Estela Moid MD Unavailable Unavailable Izquierdo, Estela Moid MD Unavailable Unavailable Izquierdo, Estela Moid MD Unavailable Unavailable Izquierdo, Estela Moid MD Unavailable Unavailable Izquierdo, Estela Moid MD Unavailable Unavailable Izquierdo, Estela Moid MD Unavailable Unavailable Izquierdo, Estela Moid MD Unavailable Unavailable Izquierdo, Estela Moid MD Unavailable Unavailable IzquierdoDariceul Moid MD Unavailable Unavailable Estela Izquierdo Moid MD Unavailable Unavailable Izquierdo Estela Moid MD Unavailable Unavailable Izquierdo, Estela Moid MD Unavailable Unavailable Izquierdo, Estela Moid MD Unavailable Unavailable IzquierdoDarcieul Moid MD Unavailable Unavailable IzquierdoDarcieul Moid MD Unavailable Unavailable IzquierdoDarcieul Moid MD Unavailable Unavailable Izquierdo, Estela Moid MD Unavailable Unavailable Izquierdo, Estela Moid MD Unavailable Unavailable Izquierdo, Estela Moid MD Unavailable Unavailable Izquierdo, Estela Moid MD Unavailable Unavailable Izquierdo, Estela Moid MD Unavailable Unavailable IzquierdoDarcieul Moid MD Unavailable Unavailable IzquierdoDarcieul Moid MD Unavailable Unavailable Izquierdo, Estela Moid MD Unavailable Unavailable Izquierdo, Estela Moid MD Unavailable Unavailable Izquierdo, Estela Moid MD Unavailable Unavailable Izquierdo, Estela Moid MD Unavailable Unavailable Izquierdo, Estela Moid MD Unavailable Unavailable Izquierdo, Estela Moid MD Unavailable Unavailable Izquierdo, Estela Moid MD Unavailable Unavailable Esdras Izquierdo MD Unavailable Unavailable Esdras Izquierdo MD Unavailable Unavailable NO, PCP Unavailable Unavailable Re-disclosure Warning The records that you are about to access may contain information from federally-assisted alcohol or drug abuse programs. If such information is present, then the following federally mandated warning applies: This information has been disclosed to you from records protected by federal confidentiality rules (42 CFR part 2). The federal rules prohibit you from making any further disclosure of this information unless further disclosure is expressly permitted by the written consent of the person to whom it pertains or as otherwise permitted by 42 CFR part 2. A general authorization for the release of medical or other information is NOT sufficient for this purpose. The Federal rules restrict any use of the information to criminally investigate or prosecute any alcohol or drug abuse patient.The records that you are about to access may contain highly sensitive health information, the redisclosure of which is protected by Article 27-F of the [facility] Public Health law. If you continue you may have access to information: Regarding HIV / AIDS; Provided by facilities licensed or operated by the [facility] Office of Mental Health; or Provided by the [facility] Office for People With Developmental Disabilities. If such information is present, then the following [facility] mandated warning applies: This information has been disclosed to you from confidential records which are protected by state law. State law prohibits you from making any further disclosure of this information without the specific written consent of the person to whom it pertains, or as otherwise permitted by law. Any unauthorized further disclosure in violation of state law may result in a fine or retirement sentence or both. A general authorization for the release of medical or other information is NOT sufficient authorization for further disc losure. Allergies and Adverse Reactions Type Description Substance Reaction Status Data Source(s ) No Known Environmental Allergies No Known Environmental Al lergies [facility] No Known Food Allergies No Known Food Allergies [facility] BRANDNAME OXYCODONE HCL-ACETAMINOPHEN OXYCODONE HCL-ACETAMINOPHEN UN KNOWN [facility] Metformin Metformin 24 HR Metformin hydr ochloride 500 MG Extended Release Oral Tablet Nausea/Vomiting Active eCW1 ([facility], [facility]) Adverse Reaction Adverse Reaction Nkda ME DENT ([employer]) Family History Family Member Name Family Member Gender Family Member Status Date o f Status Description Data Source(s) Unknown Female Problem MEDENT ([facility]) Unknown Female Problem [facility] ([facility]) Encounters Encounter Providers Location Date Indications Data Source(s ) [place] [address] [facility] [address] 06/06/2020 12:00:00 AM EST eCW1 ([facility]) [place] [address] [facility] [address] 06/06/2020 12:00:00 AM EST eCW1 ([facility]) [place] [address] [facility] [address] 05/26/2020 12:00:00 AM EST eCW1 ([facility]) Outpatient Attender: Norma Asher MDConsultant: PCP NO 05/17/2020 09:00:00 AM EST - 05/17/2020 12:25:00 PM EST [facility] Patient discharged. [place] [address] [facility] [address] 05/15/2020 12:00:00 AM EST eCW1 ([facility]) Outpatient Attender: Norma Asher MDConsultant: PCP NO 05/10/2020 08:18:02 AM EST - 05/10/2020 09:40:00 AM EST [facility] Patient discharged. Outpatient Attender: CHAN ARAIZA MD [email or web address] 12:00:00 AM EDT - 02/04/2020 11:56:35 AM EDT [facility] Outpatient Attender: JIGAR GATICA Physical Therapy 11/16/2019 1 0:00:00 AM EDT [facility] ([facility]) [place] [address] [facility] [address] 11/15/2019 12:00:00 AM EDT eCW1 ([facility]) [place] [address] [facility] [address] 10/26/2019 12:00:00 AM EDT eCW1 ([facility]) [place] [address] [facility] [address] 10/22/2019 12:00:00 AM EDT eCW1 ([facility]) Unknown [address] [place] [address] [place] [address] 10/18/2019 12:00:00 AM EDT eCW1 ([facility]) Outpatient Attender: Raz Maldonado MD FP 10/12/2019 07:35:35 PM EDT [facility] Outpatient Attender: AWILDA LIANG MD [employer] 01/2020 10:15:00 AM EDT [facility] ([employer]) Outpatient Attender: Raz Maldonado MD FP 10/02/2019 12:10:16 AM EDT [facility] Outpatient Attender: JIGAR GATICA Physical Therapy 09/30/2019 0 8:30:00 AM EDT MEDENT ([facility]) [facility] [address] [place] [address] [place] [address] 09/29/2019 12:00:00 AM EDT eCW1 ([facility]) Outpatient [address] [place] [address] [place] [address] 09/23/2019 12:00:00 AM EDT eCW1 ([facility]) [facility] [address] [place] [address] [place] [address] 09/14/2019 12:00:00 AM EDT eCW1 ([facility]) [facility] Resident [address] [place] [address] 09/02/2019 12:00:00 AM EDT eCW1 ([facility]) [facility] [address] [place] [address] [place] [address] 08/18/2019 12:00:00 AM EDT eCW1 ([facility]) [address] [address] 08/16/2019 12:00:00 AM EDT eCW1 ([facility]) [facility] [address] [place] [address] [place] [address] 08/10/2019 12:00:00 AM EDT eCW1 ([facility]) [facility] Resident [address] [place] [address] 07/29/2019 12:00:00 AM EDT eCW1 ([facility]) [facility] [address] [facility] [address] 07/15/2019 12:00:00 AM EDT eCW1 ([facility]) Outpatient Referrer: Etienne Izquierdo MD 07/06/2019 03:08:[address] [facility] Outpatient Referrer: Etienne Izquierdo MD 07/01/2019 08:34:[address] [facility] [address] [place] [address], [place] [address] 06/18/2019 12:00:00 AM EST eCW1 ([facility]) Outpatient Referrer: Etienne Izquierdo MD 06/17/2019 01:31:[address] [facility] Resident [address] [place] [address] 06/11/2019 12:00:00 AM EST eCW1 ([facility]) [facility] [address] [facility] [address] 06/11/2019 12:00:00 AM EST eCW1 ([facility]) [place] [address] [facility] [address] 05/28/2019 12:00:00 AM EST eCW1 ([facility]) [facility] [address] [place] [address] [address] 05/25/2019 12:00:00 AM EST eCW1 ([facility]) Outpatient Attender: Abelardo Montanez MD Physical Therapy 05/24/2019 0 7:30:00 AM EST [facility] ([facility]) Immunizations Vaccine Date Status Description Data Source(s) Hib (PRP-T) 11/04/2019 04:13:00 PM EDT completed e CW1 ([facility]) Hib (PRP-T) 11/04/2019 04:13:00 PM EDT completed e CW1 (Formerly [facility]) Hib (PRP-T) 11/04/2019 04:13:00 PM EDT completed e CW1 ([facility]ly [facility]) Hib (PRP-T) 11/04/2019 04:13:00 PM EDT completed e CW1 ([facility]ly [facility]) Hib (PRP-T) 11/04/2019 04:13:00 PM EDT completed e CW1 ([facility]ly [facility]) Hib (PRP-T) 11/04/2019 04:13:00 PM EDT completed e CW1 ([facility]ly [facility]) Hib (PRP-T) 11/04/2019 04:13:00 PM EDT completed e CW1 ([facility]ly [facility]) meningococcal B, OMV 09/23/2019 05:37:00 PM EDT completed eCW1 ([facility]ly [facility]) meningococcal B, OMV 09/23/2019 05:37:00 PM EDT completed eCW1 ([facility]ly [facility]) meningococcal B, OMV 09/23/2019 05:37:00 PM EDT completed eCW1 ([facility]ly [facility]) meningococcal B, OMV 09/23/2019 05:37:00 PM EDT completed eCW1 ([facility]ly [facility]) meningococcal B, OMV 09/23/2019 05:37:00 PM EDT completed eCW1 ([facility]ly [facility]) meningococcal B, OMV 09/23/2019 05:37:00 PM EDT completed eCW1 ([facility]ly [facility]) meningococcal B, OMV 09/23/2019 05:37:00 PM EDT completed eCW1 ([facility]ly [facility]) meningococcal B, OMV 09/23/2019 05:37:00 PM EDT completed eCW1 ([facility]ly [facility]) meningococcal B, OMV 09/23/2019 05:37:00 PM EDT completed eCW1 ([facility]ly [facility]) meningococcal B, OMV 09/23/2019 05:37:00 PM EDT completed eCW1 ([facility]ly [facility]) pneumococcal polysaccharide PPV23 09/23/2019 05:36:00 PM EDT comple natasha eCW1 (Formerly [facility]) pneumococcal polysaccharide PPV23 09/23/2019 05:36:00 PM EDT comple natasha eCW1 (Formerly [facility]) pneumococcal polysaccharide PPV23 09/23/2019 05:36:00 PM EDT comple natasha eCW1 (Formerly [facility]) pneumococcal polysaccharide PPV23 09/23/2019 05:36:00 PM EDT comple natasha eCW1 (Formerly [facility]) pneumococcal polysaccharide PPV23 09/23/2019 05:36:00 PM EDT comple natasha eCW1 (Formerly [facility]) pneumococcal polysaccharide PPV23 09/23/2019 05:36:00 PM EDT comple natasha eCW1 (Formerly [facility]) pneumococcal polysaccharide PPV23 09/23/2019 05:36:00 PM EDT comple natasha eCW1 ([facility]ly [facility]) pneumococcal polysaccharide PPV23 09/23/2019 05:36:00 PM EDT comple natasha eCW1 (Formerly [facility]) pneumococcal polysaccharide PPV23 09/23/2019 05:36:00 PM EDT comple natasha eCW1 (Formerly [facility]) pneumococcal polysaccharide PPV23 09/23/2019 05:36:00 PM EDT comple natasha eCW1 ([facility]ly [facility]) Pneumococcal conjugate PCV 13 05/28/2019 06:07:00 PM EST completed eCW1 ([facility]ly [facility]) Pneumococcal conjugate PCV 13 05/28/2019 06:07:00 PM EST completed eCW1 ([facility]ly [facility]) Pneumococcal conjugate PCV 13 05/28/2019 06:07:00 PM EST completed eCW1 ([facility]) Pneumococcal conjugate PCV 13 05/28/2019 06:07:00 PM EST completed eCW1 ([facility]) Pneumococcal conjugate PCV 13 05/28/2019 06:07:00 PM EST completed eCW1 ([facility]) Pneumococcal conjugate PCV 13 05/28/2019 06:07:00 PM EST completed eCW1 ([facility]ly [facility]) Pneumococcal conjugate PCV 13 05/28/2019 06:07:00 PM EST completed eCW1 ([facility]) Pneumococcal conjugate PCV 13 05/28/2019 06:07:00 PM EST completed eCW1 ([facility]ly [facility]) Pneumococcal conjugate PCV 13 05/28/2019 06:07:00 PM EST completed eCW1 ([facility]) Pneumococcal conjugate PCV 13 05/28/2019 06:07:00 PM EST completed eCW1 ([facility]ly [facility]) Meningococcal MCV4O 05/28/2019 06:06:00 PM EST completed eCW1 ([facility]ly [facility]) meningococcal B, OMV 05/28/2019 06:06:00 PM EST completed eCW1 ([facility]) Meningococcal MCV4O 05/28/2019 06:06:00 PM EST completed eCW1 ([facility]ly [facility]) meningococcal B, OMV 05/28/2019 06:06:00 PM EST completed eCW1 ([facility]) meningococcal B, OMV 05/28/2019 06:06:00 PM EST completed eCW1 ([facility]) Meningococcal MCV4O 05/28/2019 06:06:00 PM EST completed eCW1 ([facility]) meningococcal B, OMV 05/28/2019 06:06:00 PM EST completed eCW1 ([facility]) Meningococcal MCV4O 05/28/2019 06:06:00 PM EST completed eCW1 ([facility]) meningococcal B, OMV 05/28/2019 06:06:00 PM EST completed eCW1 ([facility]) Meningococcal MCV4O 05/28/2019 06:06:00 PM EST completed eCW1 ([facility]) Meningococcal MCV4O 05/28/2019 06:06:00 PM EST completed eCW1 ([facility]) meningococcal B, OMV 05/28/2019 06:06:00 PM EST completed eCW1 ([facility]) Meningococcal MCV4O 05/28/2019 06:06:00 PM EST completed eCW1 ([facility]) meningococcal B, OMV 05/28/2019 06:06:00 PM EST completed eCW1 ([facility]) Meningococcal MCV4O 05/28/2019 06:06:00 PM EST completed eCW1 ([facility]) meningococcal B, OMV 05/28/2019 06:06:00 PM EST completed eCW1 ([facility]) Meningococcal MCV4O 05/28/2019 06:06:00 PM EST completed eCW1 ([facility]) meningococcal B, OMV 05/28/2019 06:06:00 PM EST completed eCW1 ([facility]) Meningococcal MCV4O 05/28/2019 06:06:00 PM EST completed eCW1 (Formerly [facility]) meningococcal B, OMV 05/28/2019 06:06:00 PM EST completed eCW1 (Formerly [facility]) Medications Medication Brand Name Start Date Product Form Dose Route Admi nistrative Instructions Pharmacy Instructions Status Indications Reaction Description Data Source(s) 50 mg 06/23/2020 12:00:00 AM EST tablet 15 TAKE 1/2 TABLET BY MOUTH AT BEDTIME NEEDED TAKE 1/2 TABLET BY MOUTH AT BEDTIME NEEDED SOLD: [facility] Famotidine 20 MG Oral Tablet FAMOTIDINE 06/23/2020 12:00:00 AM EST tab let 30 TAKE ONE TABLET BY MOUTH AT BEDTIME NEEDED TAKE ONE TABLET BY MOUTH AT BEDTIME NEEDED SOLD: 06/23/2020 [facility] 20 mg 06/07/2020 12:00:00 AM EST capsule,delayed release (DR/EC) 30 TAKE ONE CAPSULE BY MOUTH ONCE DAILY TAKE ONE CAPSULE BY MOUTH ONCE DAILY SOLD: 06/07/2020 [facility] 1 mg 06/07/2020 12:00:00 AM EST tablet 90 TAKE ONE TABLET BY MOUTH EVERY DAY TAKE ONE TABLET BY MOUTH EVERY DAY SOLD: 06/07/2020 [facility] 10 mg 05/29/2020 12:00:00 AM EST tablet 180 TAKE ONE TABLET BY MOUTH EVERY DAY AT 8AM AND 8PM TAKE ONE TABLET BY MOUTH EVERY DAY AT 8AM AND 8PM SOLD : 05/29/2020 [facility] 25 mg 05/29/2020 12:00:00 AM EST tablet 90 TAKE ONE TABLET BY MOUTH EVERY DAY AT 8AM TAKE ONE TABLET BY MOUTH EVERY DAY AT 8AM SOLD: 05/29/2020 [facility] 50 mg 05/27/2020 12:00:00 AM EST tablet 15 TAKE ONE-HALF TABLET BY MOUTH EVERY DAY AT BEDTIME NEEDED TAKE ONE-HALF TABLET BY MOUTH EVERY DAY AT BEDTIME NEEDED SOLD: 05/29/2020 [facility] ezetimibe 10 MG Oral Tablet EZETIMIBE 05/27/2020 12:00:00 AM EST table t 30 TAKE ONE TABLET BY MOUTH EVERY DAY AT 8AM TAKE ONE TABLET BY MOUTH EVERY DAY AT 8AM SOLD: 05/29/2020 [facility] Escitalopram 10 MG Oral Tablet ESCITALOPRAM OXALATE 05/26/2020 1 2:00:00 AM EST tablet 90 TAKE ONE TABLET BY MOUTH EVERY D AY TAKE ONE TABLET BY MOUTH EVERY DAY SOLD: 05/26/2020 [facility] atorvastatin 40 MG Oral Tablet ATORVASTATIN CALCIUM 01/10/2020 1 2:00:00 AM EDT tablet 90 TAKE ONE TABLET BY MOUTH EVERY D AY TAKE ONE TABLET BY MOUTH EVERY DAY SOLD: 05/26/2020 [facility] Oxybutynin chloride 5 MG Oral Tablet OXYBUTYNIN CHLORIDE 11/2019 12:00:00 AM EDT tablet 90 TAKE ONE TABLET BY MOUTH KATHRYN RY DAY TAKE ONE TABLET BY MOUTH EVERY DAY SOLD: 01/16/2020 [facility] 5 mg 01/10/2020 12:00:00 AM EDT tablet 90 TAKE ONE TABLET BY MOUTH EVERY DAY TAKE ONE TABLET BY MOUTH EVERY DAY SOLD: 05/26/2020 [facility] atorvastatin 40 MG Oral Tablet ATORVASTATIN CALCIUM 01/10/2020 1 2:00:00 AM EDT tablet 90 TAKE ONE TABLET BY MOUTH EVERY D AY TAKE ONE TABLET BY MOUTH EVERY DAY SOLD: 01/16/2020 [facility] 150 mg 12/25/2019 12:00:00 AM EDT tablet 90 TAKE ONE TABLET BY MOUTH EVERY DAY TAKE ONE TABLET BY MOUTH EVERY DAY SOLD: 12/27/2019 [facility] 150 mg 12/25/2019 12:00:00 AM EDT tablet 90 TAKE ONE TABLET BY MOUTH EVERY DAY TAKE ONE TABLET BY MOUTH EVERY DAY SOLD: 05/26/2020 [facility] 20 mg 12/25/2019 12:00:00 AM EDT capsule,delayed release (DR/EC) 180 TAKE ONE CAPSULE BY MOUTH TWICE A DAY TAKE ONE CAPSULE BY MOUTH TWICE A DAY SOLD: 12/27/2019 [facility] 50 mg 12/25/2019 12:00:00 AM EDT tablet 45 TAKE ONE-HALF TABLET BY MOUTH EVERY DAY AT BEDTIME NEEDED TAKE ONE-HALF TABLET BY MOUTH EVERY DAY AT BEDTIME NEEDED SOLD: 12/27/2019 [facility] DIAPER,BRIEF,ADULT, DISPOSABLE 12/18/2019 12:00:00 AM EDT mi sc 108 USE DIRECTED FOUR TIMES A DAY USE DIRECTED FOUR TIMES A DAY SOLD: 01/16/2020 [facility] DIAPER,BRIEF,ADULT, DISPOSABLE 12/18/2019 12:00:00 AM EDT mi sc 108 USE DIRECTED FOUR TIMES A DAY USE DIRECTED FOUR TIMES A DAY SOLD: 12/18/2019 [facility] 5 mg 12/15/2019 12:00:00 AM EDT tablet 10 TAKE ONE TABLET BY MOUTH EVERY DAY TAKE ONE TABLET BY MOUTH EVERY DAY SOLD: 12/15/2019 [facility] 50 mg 11/17/2019 12:00:00 AM EDT tablet 15 TAKE 1/2 TABLET BY MOUTH AT BEDTIME NEEDED TAKE 1/2 TABLET BY MOUTH AT BEDTIME NEEDED SOLD: [facility] Trazodone Hydrochloride 50 MG Oral Tablet Trazodone HC l 50 MG Trazodone HCl 50 MG 11/16/2019 12:00:00 AM EDT suspended Trazodone HCl 50 MG eCW1 ([facility]ly [facility]) Trazodone Hydrochloride 50 MG Oral Tablet Trazodone HC l 50 MG Trazodone HCl 50 MG 11/16/2019 12:00:00 AM EDT active Trazodone HCl 50 MG eCW1 (Formerly [facility]) Trazodone Hydrochloride 50 MG Oral Tablet Trazodone HC l 50 MG Trazodone HCl 50 MG 11/16/2019 12:00:00 AM EDT active Trazodone HCl 50 MG eCW1 (Formerly [facility]) Trazodone Hydrochloride 50 MG Oral Tablet Trazodone HC l 50 MG Trazodone HCl 50 MG 11/16/2019 12:00:00 AM EDT active Trazodone HCl 50 MG eCW1 (Formerly [facility]) Trazodone Hydrochloride 50 MG Oral Tablet Trazodone HC l 50 MG Trazodone HCl 50 MG 11/16/2019 12:00:00 AM EDT active Trazodone HCl 50 MG eCW1 (Formerly [facility]) Trazodone Hydrochloride 50 MG Oral Tablet Trazodone HC l 50 MG Trazodone HCl 50 MG 11/16/2019 12:00:00 AM EDT active Trazodone HCl 50 MG eCW1 (Formerly [facility]) Alendronic acid 70 MG Oral Tablet Alendronate Sodium 7 0 MG Alendronate Sodium 70 MG 11/04/2019 12:00:00 AM EDT active Alendronate Sodium 70 MG eCW1 (Formerly [facility]) 70 mg 11/04/2019 12:00:00 AM EDT tablet 4 TAKE ONE TABLET BY MOUTH ONCE WEEKLY WITH PLAIN WATER 30 MINUTES BEFORE FISRT FOOD, BEVERAGE, OR MEDICINE OF THE DAY TAKE ONE TABLET BY MOUTH ONCE WEEKLY WIT H PLAIN WATER 30 MINUTES BEFORE FISRT FOOD, BEVERAGE, OR MEDICINE OF THE DAY SOLD: 12/31/2019 [facility] 70 mg 11/04/2019 12:00:00 AM EDT tablet 4 TAKE ONE TABLET BY MOUTH ONCE WEEKLY WITH PLAIN WATER 30 MINUTES BEFORE FISRT FOOD, BEVERAGE, OR MEDICINE OF THE DAY TAKE ONE TABLET BY MOUTH ONCE WEEKLY WIT H PLAIN WATER 30 MINUTES BEFORE FISRT FOOD, BEVERAGE, OR MEDICINE OF THE DAY SOLD: 12/04/2019 [facility] Alendronic acid 70 MG Oral Tablet Alendronate Sodium 7 0 MG Alendronate Sodium 70 MG 11/04/2019 12:00:00 AM EDT active Alendronate Sodium 70 MG eCW1 ([facility]ly [facility]) Alendronic acid 70 MG Oral Tablet Alendronate Sodium 7 0 MG Alendronate Sodium 70 MG 11/04/2019 12:00:00 AM EDT active Alendronate Sodium 70 MG eCW1 (Formerly [facility]) Alendronic acid 70 MG Oral Tablet Alendronate Sodium 7 0 MG Alendronate Sodium 70 MG 11/04/2019 12:00:00 AM EDT active Alendronate Sodium 70 MG eCW1 (Formerly [facility]) Alendronic acid 70 MG Oral Tablet Alendronate Sodium 7 0 MG Alendronate Sodium 70 MG 11/04/2019 12:00:00 AM EDT active Alendronate Sodium 70 MG eCW1 (Formerly [facility]) 70 mg 11/04/2019 12:00:00 AM EDT tablet 4 TAKE ONE TABLET BY MOUTH ONCE WEEKLY WITH PLAIN WATER 30 MINUTES BEFORE FISRT FOOD, BEVERAGE, OR MEDICINE OF THE DAY TAKE ONE TABLET BY MOUTH ONCE WEEKLY WIT H PLAIN WATER 30 MINUTES BEFORE FISRT FOOD, BEVERAGE, OR MEDICINE OF THE DAY SOLD: 11/04/2019 [facility] Alendronic acid 70 MG Oral Tablet Alendronate Sodium 7 0 MG Alendronate Sodium 70 MG 11/04/2019 12:00:00 AM EDT active Alendronate Sodium 70 MG eCW1 (Formerly [facility]) Alendronic acid 70 MG Oral Tablet Alendronate Sodium 7 0 MG Alendronate Sodium 70 MG 11/04/2019 12:00:00 AM EDT active Alendronate Sodium 70 MG eCW1 (Formerly [facility]) 1,000 mcg 10/26/2019 12:00:00 AM EDT tablet 90 TAKE ONE TABLET BY MOUTH EVERY DAY TAKE ONE TABLET BY MOUTH EVERY DAY SOLD: 10/28/2019 [facility] 20 mg 10/26/2019 12:00:00 AM EDT tablet 60 TAKE TWO TABLETS BY MOUTH EVERY DAY TAKE TWO TABLETS BY MOUTH EVERY DAY SOLD: 10/28/2019 [facility] 20 mg 10/25/2019 12:00:00 AM EDT capsule,delayed release (DR/EC) 60 TAKE ONE CAPSULE BY MOUTH TWICE A DAY TAKE ONE CAPSULE BY MOUTH TWICE A DAY SOLD: 10/25/2019 [facility] 150 mg 10/23/2019 12:00:00 AM EDT tablet 30 TAKE ONE TABLET BY MOUTH EVERY DAY TAKE ONE TABLET BY MOUTH EVERY DAY SOLD: 10/25/2019 [facility] irbesartan 150 MG Oral Tablet Irbesartan 150 MG Irbesartan 1 50 MG 10/22/2019 12:00:00 AM EDT 1.0 {tablet} active Ir besartan 150 MG eCW1 ([facility]ly [facility]) irbesartan 150 MG Oral Tablet Irbesartan 150 MG Irbesartan 1 50 MG 10/22/2019 12:00:00 AM EDT 1.0 {tablet} active Ir besartan 150 MG eCW1 (Formerly [facility]) irbesartan 150 MG Oral Tablet Irbesartan 150 MG Irbesartan 1 50 MG 10/22/2019 12:00:00 AM EDT 1.0 {tablet} active Ir besartan 150 MG eCW1 (Formerly [facility]) irbesartan 150 MG Oral Tablet Irbesartan 150 MG Irbesartan 1 50 MG 10/22/2019 12:00:00 AM EDT 1.0 {tablet} active Ir besartan 150 MG eCW1 (Formerly [facility]) Oxybutynin chloride 5 MG Oral Tablet OXYBUTYNIN CHLORIDE 12:00:00 AM EDT tablet 30 TAKE ONE TABLET BY MOUTH KATHRYN DAY TAKE ONE TABLET BY MOUTH EVERY DAY SOLD: 10/19/2019 [facility] 200 mcg 10/19/2019 12:00:00 AM EDT tablet 30 TAKE ONE TABLET BY MOUTH EVERY DAY TAKE ONE TABLET BY MOUTH EVERY DAY SOLD: 10/19/2019 [facility] Oxybutynin chloride 5 MG Oral Tablet OXYBUTYNIN CHLORIDE 12:00:00 AM EDT tablet 30 TAKE ONE TABLET BY MOUTH TAKE ONE TABLET BY MOUTH EVERY DAY SOLD: 12/15/2019 [facility] 200 mcg 10/19/2019 12:00:00 AM EDT tablet 30 TAKE ONE TABLET BY MOUTH EVERY DAY TAKE ONE TABLET BY MOUTH EVERY DAY SOLD: 12/10/2019 [facility] 10 mg 10/19/2019 12:00:00 AM EDT tablet 180 TAKE ONE TABLET BY MOUTH ONCE DAILY AT 8:00AM AND TAKE ONE TABLET BY MOUTH AT 8:00PM TAKE ONE TABLET BY MOUTH ONCE DAILY AT 8:00AM AND TAKE ONE TABLET BY MOUTH AT 8:00PM SOLD: 10/19/2019 [facility] Escitalopram 10 MG Oral Tablet ESCITALOPRAM OXALATE 10/19/2019 1 2:00:00 AM EDT tablet 30 TAKE ONE TABLET BY MOUTH EVERY D AY TAKE ONE TABLET BY MOUTH EVERY DAY SOLD: 10/19/2019 [facility] atorvastatin 40 MG Oral Tablet ATORVASTATIN CALCIUM 10/19/2019 1 2:00:00 AM EDT tablet 30 TAKE ONE TABLET BY MOUTH EVERY D AY TAKE ONE TABLET BY MOUTH EVERY DAY SOLD: 12/15/2019 [facility] 10 mg 10/19/2019 12:00:00 AM EDT tablet 30 TAKE ONE TABLET BY MOUTH EVERY DAY TAKE ONE TABLET BY MOUTH EVERY DAY SOLD: 12/15/2019 [facility] 150 mg 10/19/2019 12:00:00 AM EDT tablet sustained-releas e 12 hr 30 TAKE ONE TABLET BY MOUTH EVERY DAY AT 8:00AM TAKE ONE TABLET BY MOUTH EVERY DAY AT 8: 00AM SOLD: 10/19/2019 [facility] 25 mg 10/19/2019 12:00:00 AM EDT tablet 90 TAKE ONE TABLET BY MOUTH EVERY DAY AT 8:00AM TAKE ONE TABLET BY MOUTH EVERY DAY AT 8:00AM SOLD: 10/19/2019 [facility] 800 mg 10/19/2019 12:00:00 AM EDT tablet 60 TAKE ONE TABLET BY MOUTH TWICE A DAY NEEDED TAKE ONE TABLET BY MOUTH TWICE A DAY NEEDED SOLD: 10/19/2019 [facility] 40 mg 10/19/2019 12:00:00 AM EDT tablet 30 TAKE ONE TABLET BY MOUTH EVERY DAY TAKE ONE TABLET BY MOUTH EVERY DAY SOLD: 10/19/2019 [facility] 324 mg (38 mg iron) 10/19/2019 12:00:00 AM EDT tablet 50 TAKE ONE TABLET BY MOUTH EVERY OTHER DAY WITH WATER OR JUICE BETWEEN MEALS TAKE ONE TABLET BY MOUTH EVERY OTHER DAY WITH WATER OR JUICE BETWEEN MEALS SOLD: 10/19/2019 [facility] 1 gram 10/19/2019 12:00:00 AM EDT tablet 30 TAKE ONE TABLET BY MOUTH EVERY DAY TAKE ONE TABLET BY MOUTH EVERY DAY SOLD: 10/19/2019 [facility] 25 mg 10/19/2019 12:00:00 AM EDT tablet extended release 24 hr 45 TAKE 1/2 TABLET BY MOUTH ONCE DAILY TAKE 1/2 TABLET BY MOUTH ONCE DAILY SOLD: 05/26/2020 [facility] 1 mg 10/19/2019 12:00:00 AM EDT tablet 30 TAKE ONE TABLET BY MOUTH EVERY DAY TAKE ONE TABLET BY MOUTH EVERY DAY SOLD: 12/15/2019 [facility] 200 mcg 10/19/2019 12:00:00 AM EDT tablet 30 TAKE ONE TABLET BY MOUTH EVERY DAY TAKE ONE TABLET BY MOUTH EVERY DAY SOLD: 05/26/2020 [facility] 10 mg 10/19/2019 12:00:00 AM EDT tablet 30 TAKE ONE TABLET BY MOUTH EVERY DAY TAKE ONE TABLET BY MOUTH EVERY DAY SOLD: 10/19/2019 [facility] 25 mg 10/19/2019 12:00:00 AM EDT tablet extended release 24 hr 45 TAKE 1/2 TABLET BY MOUTH ONCE DAILY TAKE 1/2 TABLET BY MOUTH ONCE DAILY SOLD: 10/19/2019 [facility] 1 mg 10/19/2019 12:00:00 AM EDT tablet 30 TAKE ONE TABLET BY MOUTH EVERY DAY TAKE ONE TABLET BY MOUTH EVERY DAY SOLD: 10/20/2019 [facility] 10 mg 10/19/2019 12:00:00 AM EDT tablet 90 TAKE ONE TABLET BY MOUTH EVERY DAY AT 8:00AM TAKE ONE TABLET BY MOUTH EVERY DAY AT 8:00AM SOLD: 10/19/2019 [facility] 1 mL 31 gauge x /16 10/19/2019 12:00:00 AM EDT syringe 30 USE ONCE DAILY SUBCUTANEOUSLY AT BEDTIME USE ONCE DAILY SUBCUTANEOUSLY AT BEDTIME SOLD: 10/19/2019 [facility] Escitalopram 10 MG Oral Tablet ESCITALOPRAM OXALATE 10/19/2019 1 2:00:00 AM EDT tablet 30 TAKE ONE TABLET BY MOUTH EVERY D AY TAKE ONE TABLET BY MOUTH EVERY DAY SOLD: 12/15/2019 [facility] 24 HR mirabegron 25 MG Extended Release Oral Tablet [Myrbetr iq] Myrbetriq 10/12/2019 12:00:00 AM EDT ORAL active [facility] ([facility] [facility] [employer]) Glucometer UNK 09/23/2019 12:00:00 AM EDT active Glucometer eCW1 ([facility]) Glucometer UNK 09/23/2019 12:00:00 AM EDT active as directed eCW1 ([facility]ly [facility]) Glucometer UNK 09/23/2019 12:00:00 AM EDT active Glucometer eCW1 ([facility]ly [facility]) Glucometer UNK 09/23/2019 12:00:00 AM EDT active Glucometer eCW1 ([facility]ly [facility]) Glucometer UNK 09/23/2019 12:00:00 AM EDT active Glucometer eCW1 ([facility]ly [facility]) Glucometer UNK 09/23/2019 12:00:00 AM EDT active Glucometer eCW1 ([facility]) Glucometer UNK 09/23/2019 12:00:00 AM EDT active Glucometer eCW1 ([facility]) Glucometer UNK 09/23/2019 12:00:00 AM EDT active Glucometer eCW1 ([facility]) Glucometer UNK 09/23/2019 12:00:00 AM EDT active Glucometer eCW1 ([facility]) Glucometer UNK 09/23/2019 12:00:00 AM EDT active Glucometer eCW1 ([facility]ly [facility]) Glucometer UNK 09/23/2019 12:00:00 AM EDT active Glucometer eCW1 ([facility]ly [facility]) Acetaminophen 325 MG / Hydrocodone Bitartrate 5 MG Ora l Tablet Hydrocodone-Acetaminophen 07/07/2019 12:00:00 AM EST active [facility] ([facility]) 24 HR metoprolol succinate 25 MG Extende d Release Oral Tablet Metoprolol Succinate ER 25 MG Metoprolol Succinate ER 25 MG 06/11/2019 12:00:00 AM EST active Metoprolol Succinate ER 25 MG eCW1 ([facility]ly [facility]) 24 HR metoprolol succinate 25 MG Extende d Release Oral Tablet Metoprolol Succinate ER 25 MG Metoprolol Succinate ER 25 MG 06/11/2019 12:00:00 AM EST active Metoprolol Succinate ER 25 MG eCW1 ([facility]) 24 HR metoprolol succinate 25 MG Extende d Release Oral Tablet Metoprolol Succinate ER 25 MG Metoprolol Succinate ER 25 MG 06/11/2019 12:00:00 AM EST active Metoprolol Succinate ER 25 MG eCW1 ([facility]) 24 HR metoprolol succinate 25 MG Extende d Release Oral Tablet Metoprolol Succinate ER 25 MG Metoprolol Succinate ER 25 MG 06/11/2019 12:00:00 AM EST active Metoprolol Succinate ER 25 MG eCW1 ([facility]ly [facility]) 24 HR metoprolol succinate 25 MG Extende d Release Oral Tablet Metoprolol Succinate ER 25 MG Metoprolol Succinate ER 25 MG 06/11/2019 12:00:00 AM EST active Metoprolol Succinate ER 25 MG eCW1 ([facility]) 24 HR metoprolol succinate 25 MG Extende d Release Oral Tablet Metoprolol Succinate ER 25 MG Metoprolol Succinate ER 25 MG 06/11/2019 12:00:00 AM EST active Metoprolol Succinate ER 25 MG eCW1 ([facility]) 24 HR metoprolol succinate 25 MG Extende d Release Oral Tablet Metoprolol Succinate ER 25 MG Metoprolol Succinate ER 25 MG 06/11/2019 12:00:00 AM EST active Metoprolol Succinate ER 25 MG eCW1 ([facility]) 24 HR metoprolol succinate 25 MG Extende d Release Oral Tablet Metoprolol Succinate ER 25 MG Metoprolol Succinate ER 25 MG 06/11/2019 12:00:00 AM EST active Metoprolol Succinate ER 25 MG eCW1 ([facility]) 24 HR metoprolol succinate 25 MG Extende d Release Oral Tablet Metoprolol Succinate ER 25 MG Metoprolol Succinate ER 25 MG 06/11/2019 12:00:00 AM EST active Metoprolol Succinate ER 25 MG eCW1 ([facility]) 24 HR metoprolol succinate 25 MG Extende d Release Oral Tablet Metoprolol Succinate ER 25 MG Metoprolol Succinate ER 25 MG 06/11/2019 12:00:00 AM EST active Metoprolol Succinate ER 25 MG eCW1 ([facility]) 24 HR metoprolol succinate 25 MG Extende d Release Oral Tablet Metoprolol Succinate ER 25 MG Metoprolol Succinate ER 25 MG 06/11/2019 12:00:00 AM EST active 1/2 tablet eCW1 ([facility]) chlorhexidine gluconate 40 MG/ML Medicated Liquid Soap [Hibi clens] Hibiclens 06/03/2019 12:00:00 AM EST completed [facility] ([facility]) Mupirocin 0.02 MG/MG Topical Ointment [Bactroban] Bactroban 06/03/2019 12:00:00 AM EST completed [facility] ([facility]) ferrous gluconate 324 MG Oral Tablet Ferrous Gluconate 324 (38 Fe) MG Ferrous Gluconate 324 (38 Fe) MG 05/28/2019 12:00:00 AM EST active 1 tablet with water or juice between meals eCW1 ([facility]) Insurance Providers Payer name Policy type / Coverage type Policy ID Covered libertarian ID Covered libertarian's relationship to [place] Policy [place] Plan Information EMEDMINISTERIO [id number] SP [id number] HUMANA GOLD [id number] SP [id number] HUMANA GOLD [id number] SP [id number] HUMANA GOLD PLUS -O/P [id number] HUMANA MEDICARE [id number] Danielle [id number] MEDICARE [id number] Danielle [id number] HUMANA GOLD O [id number] S [id number] MEDICAID [id number] S [id number] [employer] Secure [employer] P [id number] S [id number] Medicaid S [id number] Medicare Wrap O [id number] S [id number] MEDICARE [id number] SP [id number] MEDICAID [id number] SP [id number] MEDICARE [id number] SP [id number] HUMANA HMO [id number] SP [id number] [facility] MCRO [id number] SP [id number] HUMANA HMO [id number] SP [id number] [facility] O [id number] S [id number] [place] [id number] Self [id number] [facility]) Medigap Part B [id number] Self [id number] Medicaid [place] Medigap Part B [id number] Self [id number] [facility] Medicare Commercial [id number] Self [id number] Medicare [facility] Medigap Part B [id number] Self [id number] [facility] ([facility]) Medigap Part B [id number] Self [id number] [place] Part B [id number] Self [id number] Medicare [facility] Medigap Part B [id number] Self [id number] [facility] ([facility]) Medigap Part B [id number] Self [id number] [place] [id number] Self [id number] [place] B [id number] Self [id number] [facility] ([facility]) Medigap Part B [id number] Self [id number] [place] Med[place] B [id number] Self [id number] MEDICARE COMPLETE-UHC O [id number] S [id number] [place] Medigap Part B [id number] Self [id number] United Healthcare ([facility]) Medigap Part B [id number] Self [id number] [place] Med[place] Part B [id number] Self [id number] UNITED HEALTHCARE MCRO [id number] SP [id number] MEDICAID [id number] SP [id number] [place] [id number] Self [id number] United Healthcare ([facility]) Medigap Part B [id number] [place] [id number] [place]ig[place] [id number] Self [id number] [place] Part B [id number] Self [id number] United Healthcare ([facility]) Medigap Part B [id number] Self [id number] [place] [id number] Self [id number] MEDICARE [id number] SP [id number] [place] Med[place] Part B [id number] Self [id number] United Healthcare ([facility]) Medigap Part B [id number] Self [id number] [place] [id number] Self [id number] MEDICARE [id number] SP [id number] [place] Part B [id number] Self [id number] United [employer] ([facility]) Medigap Part B [id number] Self [id number] [place] [id number] Self [id number] [place] Medig[place] Part B [id number] Self [id number] [place] [id number] Self [id number] United [employer] ([facility]) Commercial [id number] Self [id number] United Healthcare Medicare Medigap Part B [id number] Self [id number] [place] Part B [id number] Self [id number] [place] B [id number] Self [id number] United [employer] ([facility]) Commercial [id number] Self [id number] UnitedHealth Care Hmo Commercial [id number] Self [id number] [place] Med[place] Part B [id number] Self [id number] United Healthcare Medicare Medigap Part B [id number] Self [id number] [place] Part B [id number] Self [id number] United [employer] ([facility]) Commercial [id number] Self [id number] UnitedHealth Care Hmo Commercial [place] Med[place] Part B Self United [employer] ([facility]) Commercial [place] Part B Self United Healthcare Medicare Commercial Dual Complete Self Dual Complete [place] Part B Self UNITED HEALTHCARE MCRO [id number] SP [id number] [facility] O [id number] S [id number] MEDICARE C [id number] S [id number] W [facility] [place] P [id number] S [id number] Medicare S [id number] S [id number] W Medicaid O [id number] S [id number] [facility] [place] P [id number] S [id number] [facility] ALICE [id number] SP [id number] Medicare P [id number] S [id number] W Medicaid S [id number] S [id number] MEDICARE [id number] SP [id number] W zzMedicaid FFS O [id number] S [id number] zzMedicaid FFS O [id number] S [id number] Medicaid S [id number] S [id number] Problems, Conditions, and Diagnoses Code Display Name Description Problem Type Effective Dates Data Source(s) H25.11 [id number] Age-related nuclear cataract, right ey e Problem 05/08/2020 12:00:00 AM EST eCW1 ([facility]) Z90.81 [id number] Asplenia after surgical procedure Problem 03/30/2020 12:00:00 AM EST eCW1 ([facility]) E11.21 [id number] 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 Problem 03/30/2020 12:00:00 AM EST eCW1 ([facility]) E11.69 [id number] Type 2 diabetes mellitus with ot her specified complication Problem 03/30/2020 12:00:00 AM EST eCW1 ([facility]) F17.200 [id number] Smoker Problem 03/30/2020 12:00:00 AM ES T eCW1 ([facility]) I10 [id number] Hypertension, unspecified type Problem 03/30 12:00:00 AM EST eCW1 ([facility]) D59.1 9586147 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 11/04/2019 12:00:00 AM EDT eCW1 ([facility]) 250.00 Type II diabetes mellitus without compli cation Diabetes mellitus without mention of complication, type II or unspecified type, not stated as uncontrolled Problem 11/04/2019 12:00:00 AM EDT eCW1 ([facility]) E11.42 33876257 Type 2 diabetes yousif itus with diabetic neuropathy affecting both sides of body Problem 09/23/2019 12:00:00 AM EDT eCW1 ([facility]) E11.42 37969191 Type 2 diabetes yousif itus with diabetic neuropathy affecting both sides of body Problem 09/23/2019 12:00:00 AM EDT eCW1 ([facility]) M16.12 [id number] Unilateral primary osteoarthritis, lef t hip Problem 08/08/2019 12:00:00 AM EDT eCW1 ([facility]) M16.12 [id number] Unilateral primary osteoarthritis, lef t hip Problem 08/08/2019 12:00:00 AM EDT eCW1 ([facility]) D64.9 167434448 Chronic anemia Problem 05/29/2019 12:00:00 A M EST eCW1 ([facility]) D64.9 700967820 Chronic anemia Problem 05/29/2019 12:00:00 A M EST eCW1 ([facility]) E11.9 539600892 Type 2 diabetes mellitus without complica tions Problem 05/28/2019 12:00:00 AM EST eCW1 ([facility]) Z79.4 [id number] penitentiary (current) use of insulin Proble 05/28/2019 12:00:00 AM EST eCW1 ([facility]) J30.2 Seasonal allergy Seasonal allergies Problem 05/28/2019 12:00:00 AM EST eCW1 ([facility]) I10 84118150 Essential hypertension Problem 05/28/2019 12 :00:00 AM EST eCW1 ([facility]) K21.9 [id number] Gastroesophageal ref lux disease, esophagitis presence not specified Problem 05/28/2019 12:00:00 AM EST eCW1 ([facility]) E03.9 Acquired hypothyroidism Acquired hypothyroidism Proble 05/28/2019 12:00:00 AM EST eCW1 ([facility]) Q89.01 829249933 Asplenia Problem 05/28/2019 12:00:00 AM ES T eCW1 ([facility]) N32.81 693787756 Overactive bladder Problem 05/28/2019 12:00: 00 AM EST eCW1 ([facility]) Z79.4 240090565 penitentiary (current) use of insulin Proble 05/28/2019 12:00:00 AM EST eCW1 ([facility]) I10 55759429 Essential hypertension Problem 05/28/2019 12 :00:00 AM EST eCW1 ([facility]) J30.2 Seasonal allergy Seasonal allergies Problem 05/28/2019 12:00:00 AM EST eCW1 ([facility]) E78.5 78871461 Hyperlipidemia, unspecified hyperlipidemi a type Problem 05/28/2019 12:00:00 AM EST eCW1 ([facility]) E03.9 Acquired hypothyroidism Acquired hypothyroidism Proble 05/28/2019 12:00:00 AM EST eCW1 ([facility]) K21.9 096433770 Gastroesophageal ref lux disease, esophagitis presence not specified Problem 05/28/2019 12:00:00 AM EST eCW1 ([facility]) Q89.01 [id number] Asplenia Problem 05/28/2019 12:00:00 AM ES T eCW1 ([facility]) D58.9 961990955 Chronic hemolytic anemia Problem 05/28/2019 12:00:00 AM EST eCW1 ([facility]) F32.9 66081526 Depression, unspecified depression type P roblem 05/28/2019 12:00:00 AM EST eCW1 ([facility]) E11.9 208727240 Type 2 diabetes mellitus without complica tions Problem 05/28/2019 12:00:00 AM EST eCW1 ([facility]) E78.5 25749691 Hyperlipidemia, unspecified hyperlipidemi a type Problem 05/28/2019 12:00:00 AM EST eCW1 ([facility]) D58.9 655479491 Chronic hemolytic anemia Problem 05/28/2019 12:00:00 AM EST eCW1 ([facility]) N32.81 365284645 Overactive bladder Problem 05/28/2019 12:00: 00 AM [place] [address] (Formerly [facility]) F32.9 44391947 Depression, unspecified depression type P roblem 05/28/2019 12:00:00 AM [place] [address] ([facility]ly [facility]) Z833 Family history of diabetes mellitus Family histo ry of diabetes mellitus Diagnosis 05/17/2020 09:00:00 AM Health system Z8249 Family history of ischemic h eart disease and other diseases of the circulatory system Family history of ischemic heart disease and other diseases of the circulatory system Diagnosis 05/17/2020 09:00:00 AM [facility] [id number] Other nursing home (current) drug therapy [facility] nursing home (current) drug therapy Diagnosis 05/17/2020 09:00:00 AM Health system Z794 penitentiary (current) use of insulin penitentiary (cu rrent) use of insulin Diagnosis 05/17/2020 09:00:00 AM Health system F329 Major depressive disorder, single episod e, unspecified Major depressive disorder, single episode, unspecified Diagnosis 05/17/2020 09:00:00 AM Health system F411 Generalized anxiety disorder Generalized anxiety disor johnathan Diagnosis 05/17/2020 09:00:00 AM Health system I10 Essential (primary) hypertension Essential (primary) h ypertension Diagnosis 05/17/2020 09:00:00 AM Health system H259 Unspecified age-related cataract Unspecified age -related cataract Diagnosis 05/17/2020 09:00:00 AM Health system E1136 Type 2 diabetes mellitus with diabetic c ataract Type 2 diabetes mellitus with diabetic cataract Diagnosis 05/17/2020 09:00:00 AM [facility] [id number] Encounter for other preprocedural examin ation Encounter for other preprocedural examination Diagnosis 05/10/2020 09:20:00 AM [facility] E66.9 Obesity, unspecified Obesity, unspecified Diagnosis 02/04/2020 11:09:03 AM EDT [facility] R60.9 Edema, unspecified Edema, unspecified Diagnosis 06/2019 11:09:03 AM EDT [facility] E11.9 Type 2 diabetes mellitus without complic ations Type 2 diabetes mellitus without complic Diagnosis 02/04/2020 11:09:03 AM EDT [facility] R94.31 Abnormal electrocardiogram [ECG] [EKG] A bnormal electrocardiogram (ECG) (EKG) Diagnosis 02/04/2020 11:09:03 AM EDT [facility] G47.33 Obstructive sleep apnea (adult) (pediatr ic) Obstructive sleep apnea (adult) (pediatr Diagnosis 02/04/2020 11:09:03 AM EDT [facility] E03.9 Hypothyroidism, unspecified Hypothyroidism, unspecifie d Diagnosis 02/04/2020 11:09:03 AM EDT [facility] J44.9 Chronic obstructive pulmonary disease, u nspecified Chronic obstructive pulmonary disease, u Diagnosis 02/04/2020 11:09:03 AM EDT [facility] I10 Essential (primary) hypertension Essential (primary) h ypertension Diagnosis 02/04/2020 11:09:03 AM EDT [facility] E78.5 Hyperlipidemia, unspecified Hyperlipidemia, unspecifie d Diagnosis 02/04/2020 11:09:03 AM EDT [facility] Surgeries/Procedures Procedure Description Date Indications Data Source(s) THERAPEUTIC PX 1/> AREAS EACH 15 MIN EXERCISES 12:00:00 AM EDT [facility] ([facility] ) THERAPEUTIC PX 1/> AREAS EACH 15 MIN EXERCISES 12:00:00 AM EDT [facility] ([facility] ) THERAPEUTIC PX 1/> AREAS EACH 15 MIN EXERCISES 12:00:00 AM EDT [facility] ([facility] ) Re-Eval Of PT Established Plan Of Care 20Mins Face To Face P T/Fam 01/04/2020 12:00:00 AM EDT [facility] ([facility] ) RADIOLOGIC EXAMINATION KNEE 1/2 VIEWS 11/16/2019 12:00 :00 AM EDT [facility] ([facility] ) THERAPEUTIC PX 1/> AREAS EACH 15 MIN EXERCISES 12:00:00 AM EDT [facility] ([facility] ) THERAPEUTIC PX 1/> AREAS EACH 15 MIN EXERCISES 12:00:00 AM EDT [facility] ([facility] ) THERAPEUTIC PX 1/> AREAS EACH 15 MIN EXERCISES 12:00:00 AM EDT [facility] ([facility] ) THERAPEUTIC PX 1/> AREAS EACH 15 MIN EXERCISES 12:00:00 AM EDT [facility] ([facility] ) THERAPEUTIC PX 1/> AREAS EACH 15 MIN EXERCISES 12:00:00 AM EDT [facility] ([facility] ) X-Ray Hip Unilateral With Pelvis 2-3 Views 09/30/2019 12:00:00 AM EDT [facility] ([facility] ) Immunization: Bexsero 0.5mL IM (Meningococcal B) 09/22 12:00:00 AM EDT eCW1 ([facility]) PNEUMOCOCCAL POLYSAC VACCINE 23-V 2 />YR SUBQ/IM 09/22 12:00:00 AM EDT eCW1 ([facility]) THERAPEUTIC PX 1/> AREAS EACH 15 MIN EXERCISES 12:00:00 AM EDT [facility] ([facility] ) APPLICATION MODALITY 1/> AREAS HOT/COLD PACKS 09/10/19 20 12:00:00 AM EDT [facility] ([facility] ) THERAPEUTIC PX 1/> AREAS EACH 15 MIN EXERCISES 12:00:00 AM EDT [facility] ([facility] ) THERAPEUTIC PX 1/> AREAS EACH 15 MIN EXERCISES 12:00:00 AM EDT [facility] ([facility] ) THERAPEUTIC PX 1/> AREAS EACH 15 MIN EXERCISES 12:00:00 AM EDT [facility] ([facility] ) THERAPEUTIC PX 1/> AREAS EACH 15 MIN EXERCISES 12:00:00 AM EDT [facility] ([facility] ) X-Ray Hip Unilateral With Pelvis 2-3 Views 08/19/2019 12:00:00 AM EDT [facility] ([facility] ) APPLICATION MODALITY 1/> AREAS HOT/COLD PACKS 08/18/19 20 12:00:00 AM EDT [facility] ([facility] ) Physical Therapy Eval - Low Complexity 08/18/2019 12:0 0:00 AM EDT [facility] ([facility] ) ARTHRP ACETBLR/PROX FEM PROSTC AGRFT/ALGRFT 06/25/2019 12:00:00 AM EST [facility] ([facility]) ARTHRP ACETBLR/PROX FEM PROSTC AGRFT/ALGRFT 06/25/2019 12:00:00 AM EST [facility] ([facility] ) Office Visit, Est Pt., Level 3 PC 06/11/2019 12:00:00 AM EST eCW1 ([facility]) Office Visit, Est Pt., Level 2 FC 06/11/2019 12:00:00 AM EST eCW1 ([facility]) Medicare, Tricare, [place], PC-INTERPRETATION AND REPORT 06/11/2019 12:00:00 AM EST eCW1 ([facility]) Medicare, Tricare, [place], FC-ELECTROCARDIOGRAM, TRACING ON LY 06/11/2019 12:00:00 AM EST eCW1 ([facility]) Immunization: Menveo 0.5mL IM (Meningococcal Groups A,C,Y & W-135) 05/28/2019 12:00:00 AM EST eCW1 ([facility]) PNEUMOCOCCAL CONJ VACCINE 13 VALENT IM 05/28/2019 12:0 0:00 AM EST eCW1 ([facility]) COLONOSCOPY W/BIOPSY SINGLE/MULTIPLE 05/28/2019 12:00: 00 AM EST eCW1 ([facility]) X-Ray Hip Unilateral With Pelvis 2-3 Views 05/24/2019 12:00:00 AM EST [facility] ([facility] ) Results ID Date Data Source [id number] 05/25/2020 08:51:00 [place] [address] OPERATIVE SUMMARYNAME: MAZIN BENITEZ DATE OF : 4ATTENDING PHYS: Norma Asher MD DATE: 05/17/20 MR#: [id number] OF PROCEDURE: 05/17/2020REOPERATIVE DIAGNOSIS: Cataract, right eye.POSTOPERATIVE DIAGNOSIS: Cataract, right eyePROCEDURE: Phacoemulsification with intraocular lens implantation with the help of DIEGO GIFFORD 18 diopters.SURGEON: Norma Asher MD.BRIM FLEXER: None.COMPLICATIONS: None.INDICATIONS: Decreased vision interfering with daily activities.DETAILS OF PROCEDURE:Patient was brought to the operating room and laid in the supine position. The eye was prepped anddraped in a sterile fashion for ophthalmic surgery, following which a lid speculum was place d. Aside port incision was made and Viscoat was injected into the anterior chamber. A cornea incisionwas made with a 2.4 mm Keratome, followed by a capsulorhexis. Higher dissection was carried outwith a balanced salt solution followed by phacoemulsification in a ofqkle-gih-lapkaqe methodwithin the capsular bag. Excess cortical material was then aspirated using irrigation and aspirationcannula. Visco was then placed into the capsular bag and intraocular lens was inserted aftermultiple ORA calculations were reviewed and power was chosen. Intraocular lens used wasAUOOTO power 18 diopter. Excess Viscoelastic was then aspirated. The wound was hydrated.Intracameral antibiotics and subtenon steroid injections were given. The speculum was removedand the patient was returned to the recovery room in stable condition.DD: Norma Asher MD 05/25/20 08:27 [address] [place] [address] OPERATIVE SUMMARYNAME: MAZIN BENITEZ DATE OF : 1955TTENDING PHYS: Norma Asher MD DATE: 05/17/20 MR#: [id number]: SSR 05/25/20 08:50DS: Norma Asher MD 06/05/20 13:41 2 Name Value Range Interpretation Code Description Data Anju rce(s) Supporting Document(s) ID Date Data Source [id number] 05/12/2020 11:07:00 AM EST [facility] Name Value Range Interpretation Code Description Data Anju rce(s) Supporting Document(s) SARS-CoV-2 (COVID-19) Negative [facility] This lab was ordered by [facility] and reported by [facility]. ID Date Data Source [id number] 10/12/2019 12:00:00 PM EDT [facility] ([facility] [employer] [facility]) Name Value Range Interpretation Code Description Data Anju rce(s) Supporting Document(s) TP Reflex HPV ASCUS Laboratory test result [facility] ([facility] [employer] [facility]) SPECIMEN PART------ A. Vaginal, ThinPrep Pap (Actuarial Internship) CYTOLOGY HX-------- Other Information:Previous Normal Pap: 07/09/17 Hysterectomy FINAL DIAGNOSIS---- INTERPRETATION: Negative for Intraepithelial Lesion or Malignancy. SPECIMEN ADEQUACY:Satisfactory for evaluation. TP Reflex HPV ASCUS Laboratory test result [facility] ([facility] [employer] [facility]) ID Date Data Source [id number] 06/25/2019 10:12:00 AM EST [facility] ([facility]) Name Value Range Interpretation Code Description Data Anju rce(s) Supporting Document(s) Glucose [Mass/volume] in Capillary blood by Glucometer 122 mg/dL 80- 115 [facility] ([facility]) ID Date Data Source [id number] 06/25/2019 06:37:00 AM EST [facility] ([facility]) Name Value Range Interpretation Code Description Data Anju rce(s) Supporting Document(s) Glucose [Mass/volume] in Capillary blood by Glucometer 172 mg/dL 80- 115 [facility] ([facility]) Procedure Social History Code Duration Value Status Description Data Source(s ) Smoking 05/22/2020 12:00:00 AM EST Former Smoker completed Former Smoker eCW ([facility]) Smoking 05/22/2020 12:00:00 AM EST Former Smoker completed Former Smoker eCW1 ([facility]) Smoking 05/22/2020 12:00:00 AM EST Former Smoker completed Former Smoker eCW ([facility]) Smoking 05/08/2020 12:00:00 AM EST Former Smoker completed Former Smoker eCW1 ([facility]) Smoking 11/04/2019 12:00:00 AM EDT Former Smoker completed Former Smoker eCW1 ([facility]) Smoking 11/04/2019 12:00:00 AM EDT Former Smoker completed Former Smoker eCW1 ([facility]) Smoking 11/04/2019 12:00:00 AM EDT Former Smoker completed Former Smoker eCW1 ([facility]) Smoking 10/12/2019 12:00:00 AM EDT Non-Smoker, Non-Drink er, Non-Drug User completed Non-Smoker, Non-Drinker, Non-Drug User [facility] ([facility] [employer] [facility]) Vital Signs ID Date Data Source UNK Name Value Range Interpretation Code Description Data Source(s) Body surface area 1.76 m2 1.76 m2 [facility] ([facility] [employer] [facility] [facility]) Body mass index (BMI) [Ratio] 31.9 kg/m2 31.9 k g/m2 [facility] ([facility] [employer] [facility]) Body weight 169.00 [lb_av] 169.00 [lb_av] MEDEN T ([facility] [employer] [facility]) Body height 61 [in_i] 61 [in_i] [facility] ([facility] [employer] [facility]) 5'1" Diastolic blood pressure 44 mm[Hg] 44 mm[Hg] [facility] ([facility] [employer] [facility] [facility]) Systolic blood pressure 104 mm[Hg] 104 mm[Hg] M EDENT ([facility] [employer] [facility]) Diastolic blood pressure 74 mm[Hg] 74 mm[Hg] eCW1 ([facility]) Systolic blood pressure 124 mm[Hg] 124 mm[Hg] e CW1 ([facility]) Body temperature 98.4 [degF] 98.4 [degF] eCW1 ( [facility]) Respiratory rate 18 /min 18 /min eCW1 ([facility]) Heart rate 84 /min 84 /min eCW1 ([facility]) Body mass index (BMI) [Ratio] 32.15 kg/m2 32.15 kg/m2 eCW1 ([facility]) Body height 61.75 [in_i] 61.75 [in_i] eCW1 ([facility]) Body weight 174.4 [lb_av] 174.4 [lb_av] eCW1 ([facility]) Body temperature 97.8 [degF] 97.8 [degF] [facility] ([facility]) Respiratory rate 18 /min 18 /min [facility] ( [facility]) Body mass index (BMI) [Ratio] 30.9 kg/m2 30.9 k g/m2 [facility] ([facility]) Body weight 166.50 [lb_av] 166.50 [lb_av] MEDEN T ([facility]) Body height 61.50 [in_i] 61.50 [in_i] [facility] ([facility]) 5'1.50" Body temperature 97.6 [degF] 97.6 [degF] [facility] ([facility]) Heart rate 64 /min 64 /min [facility] ([facility]) Diastolic blood pressure 80 mm[Hg] 80 mm[Hg] [facility] ([facility]) Systolic blood pressure 122 mm[Hg] 122 mm[Hg] M EDENT ([facility]) Diastolic blood pressure 48 mm[Hg] 48 mm[Hg] eCW1 ([facility]) Systolic blood pressure 100 mm[Hg] 100 mm[Hg] e CW1 ([facility]) Body temperature 98.4 [degF] 98.4 [degF] eCW1 ( [facility]) Respiratory rate 20 /min 20 /min eCW1 ([facility]) Heart rate 60 /min 60 /min eCW1 ([facility]) Body mass index (BMI) [Ratio] 32.12 kg/m2 32.12 kg/m2 eCW1 ([facility]) Body height 61.75 [in_us] 61.75 [in_us] eCW1 ([facility]) Body weight Measured 174.2 [lb_av] 174.2 [lb_av ] eCW1 ([facility]) Diastolic blood pressure 80 mm[Hg] 80 mm[Hg] eCW1 ([facility]) Systolic blood pressure 120 mm[Hg] 120 mm[Hg] e CW1 ([facility]) Body temperature 97.2 [degF] 97.2 [degF] eCW1 ( [facility]) Respiratory rate 20 /min 20 /min eCW1 ([facility]) Heart rate 61 /min 61 /min eCW1 ([facility]) Body mass index (BMI) [Ratio] 33.19 kg/m2 33.19 kg/m2 eCW1 ([facility]) Body height 61.75 [in_i] 61.75 [in_i] eCW1 ([facility]) Body weight 180 [lb_av] 180 [lb_av] eCW1 ([facility]) ID Date Data Source [id number] 06/05/2020 01:41:52 PM Health system Name Value Range Interpretation Code Description Data Source(s) WEIGHT RECORDED 184.00 pounds 184.00 pounds [facility] Height 60 Inches 060 Inches [facility] Patient Treatment Plan of Care Planned Activity Planned Date Details Description Data Source (s) Trazodone Hydrochloride 50 MG Oral Tablet 11/16/2019 12:00:00 AM ED T eCW1 ([facility]) Trazodone Hydrochloride 50 MG Oral Tablet 11/16/2019 12:00:00 AM ED T eCW1 ([facility]) Trazodone Hydrochloride 50 MG Oral Tablet 11/16/2019 12:00:00 AM ED T eCW1 ([facility]) Trazodone Hydrochloride 50 MG Oral Tablet 11/16/2019 12:00:00 AM ED T eCW1 ([facility]) Trazodone Hydrochloride 50 MG Oral Tablet 11/16/2019 12:00:00 AM ED T eCW1 ([facility]) Alendronic acid 70 MG Oral Tablet 11/04/2019 12:00:00 AM EDT eCW1 ([facility]) Alendronic acid 70 MG Oral Tablet 11/04/2019 12:00:00 AM EDT eCW1 ([facility]) Alendronic acid 70 MG Oral Tablet 11/04/2019 12:00:00 AM EDT eCW1 ([facility]) irbesartan 150 MG Oral Tablet 10/22/2019 12:00:00 AM EDT eCW1 ([facility]) Glucometer 09/23/2019 12:00:00 AM EDT e CW1 ([facility]) Glucometer 09/23/2019 12:00:00 AM EDT e CW1 ([facility]) Glucometer 09/23/2019 12:00:00 AM EDT e CW1 ([facility]) Glucometer 09/23/2019 12:00:00 AM EDT e CW1 ([facility]) 24 HR metoprolol succinate 25 MG Extended Release Oral Tablet 06/11/2019 12:00:00 AM EST eCW1 (Formerly [facility], 1928–1983) 24 HR metoprolol succinate 25 MG Extended Release Oral Tablet 06/11/2019 12:00:00 AM EST eCW1 (Formerly [facility], 1928–1983) 24 HR metoprolol succinate 25 MG Extended Release Oral Tablet 06/11/2019 12:00:00 AM EST eCW1 (Formerly [facility], 1928–1983) ferrous gluconate 324 MG Oral Tablet 05/28/2019 12:00:00 AM EST eCW1 (Formerly [facility])
[2020-06-25 10:02] LABS: VENOUS BASE EXCESS -3.4 (-2.0-2.0); VENOUS HCO3 22.5 MEQ/L (23.0-27.0); VENOUS O2 SATURATION 89.5 % (60.0-80.0); VENOUS PARTIAL PRESSURE CO2 43.4 mmHg (38.0-50.0); VENOUS PARTIAL PRESSURE O2 58.9 mmHg (30.0-50.0); VENOUS PH 7.332 UNITS (7.330-7.430); VENOUS STANDARD HCO3 21.5 MEQ/L; VENOUS TOTAL CO2 23.8 MEQ/L (24.0-28.0)
[2020-06-25 10:06] LABS: ALBUMIN 2.7 GM/DL (3.2-5.2); BILIRUBIN,DIRECT 0.1 MG/DL (0.0-0.2); BILIRUBIN,TOTAL 0.2 MG/DL (0.2-1.0); CREATININE FOR GFR 1.52 MG/DL (0.55-1.30); GLOMERULAR FILTRATION RATE 36.4 (>45); MB/CK RELATIVE INDEX 1.2 (< OR =4); POTASSIUM SERUM 3.9 MEQ/L (3.5-5.1); THYROID STIMULATING HORMONE 10.7 uIU/ML (0.358-3.740); THYROXINE (T4) 5.3 UG/DL (4.5-12.0); TOTAL PROTEIN 5.8 GM/DL (6.4-8.2); TROPONIN I 0.03 NG/ML (< 0.10)
[2020-06-25] MEDS ORDERED: ISOVUE-370 76% 100ML VIAL As Ordered ONE (10:54)
[2020-06-25] MEDS ORDERED: VALSARTAN 80 MG TAB (DIOVAN) PO ONE (11:00)
[2020-06-25 11:29] VITALS: BP 150/67
--- NOTE | 2020-06-25 11:59 | REP ---
INDICATION: shortness of breath. COMPARISON: AP portable 06/25/2020, CT without 07/15/2016. TECHNIQUE: CT angiogram chest performed following the intravenous administration of 75 cc of Isovue 370. Sagittal and coronal reconstruction images are performed. FINDINGS: Lungs: Lung rodriguez are well inflated. There is some subpleural of subsegmental atelectatic change and peripheral fibrotic change evident right lower lobe. I see no pleural effusion, dense consolidation or parenchymal mass. No pulmonary nodule seen. There is some mild cylindrical bronchiectatic change in the lower lung zones. Mediastinum: There is no pathologic sized mediastinal adenopathy, mass or fluid collection. Pulmonary arteries: No evidence of pulmonary embolism. Linda: No adenopathy. Axilla: No adenopathy. Pleura: No effusion. Heart: Is upper limits of normal there is some left atrial enlargement borderline left ventricular enlargement no gross cardiomegaly, pericardial thickening or effusion. Some coronary artery calcifications are noted. Thoracic aorta: Atherosclerotic calcifications are noted but no aneurysm or dissection. Upper abdominal structures: Left hepatic lobe is prominent but that portion of liver in this imaging volume has smooth margins and without gross mass or biliary dilatation. 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 Body and tail the pancreas are included in the field of view on unremarkable only a small amount of the gallbladder is seen adrenal glands unchanged without acute finding upper pole left kidney included in small volume but unremarkable. Visualized osseous structures: Show marginal osteophytes throughout the spine without compression deformity or destructive lesion. The sternum, manubrium, medial clavicles, visualized portions of scapula, humeral heads and ribs are without acute finding. IMPRESSION: No CT evidence of pulmonary embolism.No infiltrate seen. No new findings from CT chest without contrast 07/15/2016.. <Electronically signed by Ryan Louis > 06/25/20 [id number]
[2020-06-25] MEDS ORDERED: PRED20TA PO (13:29)
[2020-06-25] MEDS ORDERED: COMBAER6 INH (13:29)
[2020-06-25 13:45] VITALS: BP 174/89
== END 2020-06-25 14:09 | disposition home or self-care (01) ==
LOC: EDBD 08:32 → M ED 08:32
DX: R06.02 Shortness of breath (principal); R07.89 Other chest pain; E11.9 Type 2 diabetes mellitus without complications; I10 Essential (primary) hypertension; E03.9 Hypothyroidism, unspecified; M19.90 Unspecified osteoarthritis, unspecified site; Z79.899 Other long term (current) drug therapy; Z79.890 Hormone replacement therapy; Z79.4 Long term (current) use of insulin; Z88.5 Allergy status to narcotic agent; Z88.8 Allergy status to other drugs, medicaments and biological substances; Z87.891 Personal history of nicotine dependence
CPT/HCPCS: 71045; 71275; 80048; 80076; 82550; 82553; 82803; 83880; 84436; 84443; 84484; 85025; 85610; 87040; 87798; 93005; 93041; 94640; 99285; J1100; Q9967

== ENCOUNTER → 2020-10-05 | Outpatient (REF) | payer OTHER, MEDICAID ==
[~2020-10-05] MED LIST changes: +ACET1TAB55 PO; +ACET50CA PO; +ALCO1MED8 XX; +AMLO1TAB25 PO; +APAP325T4 PO; +CALC500T61 PO; +COMB0.2S OU; +COMBAER6 INH; +CRES10TA PO; +CYAN100050 PO; +ELIQ5TAB PO; +ERGO500029 PO; +FAMO20TA5 PO; +FERR324T21 PO; -FERR325T16 PO; +FURO20TA2 PO; +GLIP10TA PO; +GLIP5TAB8 PO; +GLUCMIS7 XX; +LANC1COM MC; +LANTINJ4 SC; +LASI20TA3 PO; +LEVO200C PO; +LEVO25TA5 PO; +LEVO750T13 PO; +LEXA1TAB PO; +MELO7.5T35 PO; +NITR1CAP11 PO; +NOVOINJ SC; +OMEP-173 PO; -OMEP-218 PO; +POLY2.5S OD; +POTA-136 PO; +TIMO0.5S29 OU; +TRAZ-186 PO; +VALS40TA9 PO; +[UNRECOGNIZED DRUG - OTHER]
[2020-10-05 18:29] LABS: CREATININE FOR GFR 1.45 MG/DL (0.55-1.30); GLOMERULAR FILTRATION RATE 38.5 (>45); POTASSIUM SERUM 4.7 MEQ/L (3.5-5.1); THYROID STIMULATING HORMONE 32.9 uIU/ML (0.358-3.740)
[2020-10-05 19:05] LABS: FREE T4 0.26 NG/DL (0.76-1.46)
[2020-10-05 19:40] LABS: HEMOGLOBIN A1c 12.7 %
== END ==
LOC: M SFHCPLAZ 15:52
DX: E11.22 Type 2 diabetes mellitus with diabetic chronic kidney disease (principal); E03.9 Hypothyroidism, unspecified
CPT/HCPCS: 36415; 80048; 83036; 84439; 84443; G0463

== ENCOUNTER 2020-10-30 12:46 | Emergency (ER) | payer OTHER, MEDICAID ==
[~2020-10-30] VITALS: Ht 152.4 cm; Wt 79.8 kg
[~2020-10-30 12:46] MED LIST changes: -ACET1TAB55 PO; -ACET50CA PO; -ALCO1MED8 XX; -AMLO1TAB25 PO; -APAP325T4 PO; -CALC500T61 PO; -COMB0.2S OU; -CRES10TA PO; -CYAN100050 PO; -ELIQ5TAB PO; -ERGO500029 PO; -FAMO20TA5 PO; -FURO20TA2 PO; -GLIP10TA PO; -GLIP5TAB8 PO; -GLUCMIS7 XX; -LANC1COM MC; -LANTINJ4 SC; -LASI20TA3 PO; -LEVO200C PO; -LEVO25TA5 PO; -LEVO750T13 PO; -LEXA1TAB PO; -MELO7.5T35 PO; -NITR1CAP11 PO; -NOVOINJ SC; -OMEP-173 PO; +OMEP-218 PO; -POLY2.5S OD; -POTA-136 PO; -TIMO0.5S29 OU; -TRAZ-186 PO; -VALS40TA9 PO; -[UNRECOGNIZED DRUG - OTHER]
[2020-10-30] MEDS ORDERED: APAP325T4 PO (13:11)
[2020-10-30] MEDS ORDERED: FAMO20TA5 PO (13:11)
[2020-10-30] MEDS ORDERED: NITR1CAP11 PO (15:25)
[2020-10-30 15:57] VITALS: BP 158/78
== END 2020-10-30 15:58 | disposition home or self-care (01) ==
LOC: M ED 12:46
DX: N39.0 Urinary tract infection, site not specified (principal); E11.9 Type 2 diabetes mellitus without complications; Z88.5 Allergy status to narcotic agent; Z88.8 Allergy status to other drugs, medicaments and biological substances; Z79.899 Other long term (current) drug therapy; Z79.890 Hormone replacement therapy; Z79.4 Long term (current) use of insulin

== ENCOUNTER 2020-11-04 16:36 | Emergency (ER) | payer OTHER, MEDICAID ==
[~2020-11-04] VITALS: Ht 152.4 cm; Wt 80.9 kg
[~2020-11-04 16:36] MED LIST changes: +APAP325T4 PO; +FAMO20TA5 PO; +NITR1CAP11 PO
[2020-11-04 17:14] LABS: BASO # 0.1 10^3/uL (0.0-0.2); BASO % 0.5 % (0.0-1.0); EOS # 0.2 10^3/uL (0.0-0.5); EOS % 2.1 % (0.0-3.0); HEMATOCRIT 44.4 % (36.0-47.0); HEMOGLOBIN 14.2 g/dl (12.0-15.5); LYMPH # 1.7 10^3/uL (1.5-5.0); LYMPH % 14.8 % (24.0-44.0); MEAN CORPUSCULAR HEMOGLOBIN 31.3 pg (27.0-33.0); MONO # 0.9 10^3/uL (0.0-0.8); MONO % 7.8 % (2.0-8.0); NEUTROPHILS # 8.3 10^3/uL (1.5-8.5); PLATELET COUNT, AUTOMATED 358 10^3/uL (150-450); RED BLOOD COUNT 4.53 10^6/uL (4.00-5.40); WHITE BLOOD COUNT 11.2 10^3/uL (4.0-10.0)
[2020-11-04 17:38] LABS: ALBUMIN 3.2 GM/DL (3.2-5.2); BILIRUBIN,DIRECT 0.1 MG/DL (0.0-0.2); BILIRUBIN,TOTAL 0.7 MG/DL (0.2-1.0); CALCIUM LEVEL 8.7 MG/DL (8.8-10.2); CREATININE FOR GFR 1.55 MG/DL (0.55-1.30); GLOMERULAR FILTRATION RATE 35.6 (>45); POTASSIUM SERUM 3.8 MEQ/L (3.5-5.1); TOTAL PROTEIN 6.6 GM/DL (6.4-8.2)
[2020-11-04] MEDS ORDERED: HumuLIN R (REGULAR) INSULIN (NovoLIN R) **100U/ML** PER UNIT IV ONE (18:40)
[2020-11-04 21:31] VITALS: BP 163/72
== END 2020-11-04 21:45 | disposition home or self-care (01) ==
LOC: M ED 17:34
DX: R19.7 Diarrhea, unspecified (principal); E11.9 Type 2 diabetes mellitus without complications; I10 Essential (primary) hypertension; J45.909 Unspecified asthma, uncomplicated; E03.9 Hypothyroidism, unspecified; E78.5 Hyperlipidemia, unspecified; Z79.899 Other long term (current) drug therapy; Z79.890 Hormone replacement therapy; Z79.4 Long term (current) use of insulin; Z88.5 Allergy status to narcotic agent; Z88.8 Allergy status to other drugs, medicaments and biological substances

== ENCOUNTER → 2020-11-09 | Outpatient (REF) | payer OTHER, MEDICAID ==
[~2020-11-09] MED LIST changes: +ACET1TAB55 PO; +ACET50CA PO; +ALCO1MED8 XX; +AMLO1TAB25 PO; +CALC500T61 PO; +COMB0.2S OU; +CRES10TA PO; +CYAN100050 PO; +ELIQ5TAB PO; +ERGO500029 PO; +FURO20TA2 PO; +GLIP10TA PO; +GLIP5TAB8 PO; +GLUCMIS7 XX; +LANC1COM MC; +LANTINJ4 SC; +LASI20TA3 PO; +LEVO200C PO; +LEVO25TA5 PO; +LEVO750T13 PO; +LEXA1TAB PO; +MELO7.5T35 PO; +NOVOINJ SC; +OMEP-173 PO; -OMEP-218 PO; +POLY2.5S OD; +POTA-136 PO; +TIMO0.5S29 OU; +TRAZ-186 PO; +VALS40TA9 PO; +[UNRECOGNIZED DRUG - OTHER]
[2020-11-09 20:36] LABS: APPEARANCE, URINE CLEAR (CLEAR); BACTERIA, URINE AUTO NEGATIVE (NEGATIVE); BILIRUBIN, URINE AUTO NEGATIVE (NEGATIVE); BLOOD, URINE BLOOD 1+ (NEGATIVE); COLOR, URINE YELLOW (YELLOW); GLUCOSE, URINE (UA) AUTO 3+ mg/dL (NEGATIVE); KETONE, URINE AUTO NEGATIVE (NEGATIVE); LEUKOCYTE ESTERASE, URINE AUTO NEGATIVE (NEGATIVE); MUCUS, URINE SMALL (NEGATIVE); NITRITE, URINE AUTO NEGATIVE (NEGATIVE); PROTEIN, URINE AUTO 3+ mg/dL (NEGATIVE); RBC, URINE AUTO 1 /HPF (0-3); SPECIFIC GRAVITY URINE AUTO 1.025 (1.002-1.035); SQUAMOUS EPITHELIAL CELL UR AU 0 /HPF (0-6); UROBILINOGEN, URINE AUTO 0.2 mg/dL (0.0-2.0); WBC, URINE AUTO 1 /HPF (0-3)
== END ==
LOC: M SFHCPLAZ 17:08
PROVIDERS: ATTEND Student in an Organized Health Care Education/Training Program
DX: N39.0 Urinary tract infection, site not specified (principal)
CPT/HCPCS: 81001; G0463

== ENCOUNTER → 2020-11-09 | Outpatient (REF) | payer OTHER, MEDICAID ==
[~2020-11-09] MED LIST changes: -ACET1TAB55 PO; -ACET50CA PO; -ALCO1MED8 XX; -AMLO1TAB25 PO; -CALC500T61 PO; -COMB0.2S OU; -CRES10TA PO; -CYAN100050 PO; -ELIQ5TAB PO; -ERGO500029 PO; -FURO20TA2 PO; -GLIP10TA PO; -GLIP5TAB8 PO; -GLUCMIS7 XX; -LANC1COM MC; -LANTINJ4 SC; -LASI20TA3 PO; -LEVO200C PO; -LEVO25TA5 PO; -LEVO750T13 PO; -LEXA1TAB PO; -MELO7.5T35 PO; -NOVOINJ SC; -OMEP-173 PO; +OMEP-218 PO; -POLY2.5S OD; -POTA-136 PO; -TIMO0.5S29 OU; -TRAZ-186 PO; -VALS40TA9 PO; -[UNRECOGNIZED DRUG - OTHER]
== END ==
LOC: M SFHCPLAZ 14:26
DX: N39.0 Urinary tract infection, site not specified (principal); R51.9 Headache, unspecified

== ENCOUNTER 2020-11-10 13:25 | Emergency (ER) | payer OTHER, MEDICAID ==
[~2020-11-10] VITALS: Ht 152.4 cm; Wt 79.1 kg
[~2020-11-10 13:25] MED LIST changes: +OMEP-173 PO; -OMEP-218 PO
[2020-11-10] MEDS ORDERED: KETOROLAC 60MG 2ML VIAL IM ONE (17:00)
[2020-11-10 18:49] VITALS: BP 159/81
== END 2020-11-10 19:23 | disposition home or self-care (01) ==
LOC: M ED 13:25
DX: R51.9 Headache, unspecified (principal); I10 Essential (primary) hypertension; E11.9 Type 2 diabetes mellitus without complications; J44.9 Chronic obstructive pulmonary disease, unspecified; Z79.4 Long term (current) use of insulin; Z79.890 Hormone replacement therapy; Z79.899 Other long term (current) drug therapy; Z88.8 Allergy status to other drugs, medicaments and biological substances; Z88.5 Allergy status to narcotic agent; Z87.19 Personal history of other diseases of the digestive system; Z98.890 Other specified postprocedural states; Z90.49 Acquired absence of other specified parts of digestive tract
CPT/HCPCS: 70450; 96372; 99284; J1885

== ENCOUNTER 2021-01-31 11:21 | Inpatient (IN) | payer OTHER, MEDICAID ==
[~2021-01-31] VITALS: Ht 162.6 cm; Wt 81.2 kg
[~2021-01-31 11:21] MED LIST changes: -OMEP-173 PO; +OMEP-218 PO
[2021-01-31] MEDS ORDERED: NEOSPORIN OINT 0.9 GM PKT TOP ONE (11:50)
[2021-01-31] MEDS ORDERED: NS 1,000 ML IV ONE (11:50)
--- NOTE | 2021-01-31 12:19 | REP ---
INDICATION: right anterior mid rib pain, trauma COMPARISON: None. TECHNIQUE: Frontal view of the chest with multiple views of the right hemithorax. FINDINGS: Evaluation is somewhat limited by underpenetration and chronic pulmonary parenchymal changes obscuring fine bony detail to the right ribs. No definite acute or displaced rib fractures identified but subtle injury cannot definitively be excluded. Frontal view of the chest demonstrates no significant consolidation, effusion, or pneumothorax. IMPRESSION: No obvious or displaced rib fracture identified. <Electronically signed by Andrés Feliciano > 01/31/21 [id number]
--- NOTE | 2021-01-31 12:34 | REP ---
INDICATION: fall, headache on anticoagulants COMPARISON: 11/10/2020 TECHNIQUE: Axial noncontrast images from the skull base to the thoracic inlet with coronal reformations. This CT examination was performed using the following dose reduction techniques: Automated exposure control, adjustment of mA and/or kv according to the patient's size, and use of iterative reconstruction technique. FINDINGS: Atrophy with periventricular leukomalacia and microvascular ischemic changes are appreciated. The ventricles and sulci are symmetric. Bains-white differentiation is maintained. There is no evidence for acute intracranial hemorrhage, mass/mass effect, pathology or infarction. No extra-axial fluid collection. Calvarium is intact. Paranasal sinuses and mastoid air cells are clear. IMPRESSION: Atrophy and microvascular ischemic changes. No acute intracranial hemorrhage, infarction, or mass/mass effect. <Electronically signed by Andrés Feliciano > 01/31/21 [id number]
[2021-01-31 13:44] LABS: APPEARANCE, URINE CLEAR (CLEAR); BACTERIA, URINE AUTO NEGATIVE (NEGATIVE); BILIRUBIN, URINE AUTO NEGATIVE (NEGATIVE); BLOOD, URINE BLOOD NEGATIVE (NEGATIVE); COLOR, URINE STRAW (YELLOW); GLUCOSE, URINE (UA) AUTO 3+ mg/dL (NEGATIVE); KETONE, URINE AUTO TRACE mg/dL (NEGATIVE); LEUKOCYTE ESTERASE, URINE AUTO NEGATIVE (NEGATIVE); NITRITE, URINE AUTO NEGATIVE (NEGATIVE); PROTEIN, URINE AUTO 3+ mg/dL (NEGATIVE); RBC, URINE AUTO 3 /HPF (0-3); SPECIFIC GRAVITY URINE AUTO 1.025 (1.002-1.035); SQUAMOUS EPITHELIAL CELL UR AU 0 /HPF (0-6); UROBILINOGEN, URINE AUTO 0.2 mg/dL (0.0-2.0); WBC, URINE AUTO 0 /HPF (0-3)
[2021-01-31 13:52] LABS: VENOUS BASE EXCESS 0.4 (-2.0-2.0); VENOUS HCO3 26.6 MEQ/L (23.0-27.0); VENOUS O2 SATURATION 57.9 % (60.0-80.0); VENOUS PARTIAL PRESSURE O2 32.2 mmHg (30.0-50.0); VENOUS PH 7.353 UNITS (7.330-7.430); VENOUS STANDARD HCO3 23.8 MEQ/L; VENOUS TOTAL CO2 28.1 MEQ/L (24.0-28.0)
[2021-01-31 13:56] LABS: BASO # 0.1 10^3/uL (0.0-0.2); BASO % 0.7 % (0.0-1.0); EOS # 0.1 10^3/uL (0.0-0.5); EOS % 0.7 % (0.0-3.0); HEMATOCRIT 44.8 % (36.0-47.0); HEMOGLOBIN 14.4 g/dl (12.0-15.5); LYMPH # 1.3 10^3/uL (1.5-5.0); LYMPH % 13.9 % (24.0-44.0); MEAN CORPUSCULAR HEMOGLOBIN 32.5 pg (27.0-33.0); MEAN CORPUSCULAR HGB CONC 32.1 g/dl (32.0-36.5); MEAN CORPUSCULAR VOLUME 101.1 fl (80.0-96.0); MONO # 0.6 10^3/uL (0.0-0.8); MONO % 5.8 % (2.0-8.0); NEUTROPHILS # 7.5 10^3/uL (1.5-8.5); NEUTROPHILS % 78.2 % (36.0-66.0); PLATELET COUNT, AUTOMATED 352 10^3/uL (150-450); RED BLOOD COUNT 4.43 10^6/uL (4.00-5.40); WHITE BLOOD COUNT 9.6 10^3/uL (4.0-10.0)
[2021-01-31 14:27] LABS: ACETONE/KETONE 4.25 MG/DL (<2.81); CREATININE FOR GFR 1.59 MG/DL (0.55-1.30); GLOMERULAR FILTRATION RATE 34.5 (>45); POTASSIUM SERUM 4.5 MEQ/L (3.5-5.1)
[2021-01-31] MEDS ORDERED: HumuLIN R (REGULAR) INSULIN (NovoLIN R) **100U/ML** PER UNIT IV ONE (15:20)
[2021-01-31] MEDS ORDERED: MORPHINE 2 MG/ML 1ML VIAL (J2270) IV ONE (15:50)
[2021-01-31] MEDS ORDERED: GLUCAGON INJ 1MG VIAL SC PRN (17:20)
[2021-01-31] MEDS ORDERED: GLUCOSE 4GM CHEW TABLET PO PRN (17:20)
[2021-01-31] MEDS ORDERED: DEXTROSE 50% 50 ML SYRINGE IV PRN (17:20)
[2021-01-31] MEDS ORDERED: LEVEMIR (INSULIN DETEMIR) 1 UNITS/0.01ML SC ONE (17:20)
--- NOTE | 2021-01-31 17:51 | HPEPDOC ---
[facility] Medical History & Physical Date of Admission Jan 31, 2021 Date of Service: Jan 31, 2021 Primary Care Physician: LUZ MARIA PEGUERO D.O. Attending Physician: HERSON RAMIREZ DO History and Physical CHIEF COMPLAINT: Falls and inability to care for self HISTORY OF PRESENT ILLNESS: Patient is a 66-year-old female who presented today after frequent falls. Patient states that she fell a few days ago and EMS was called. She did not want to go to the hospital. Since then, she been having some pain in her right rib cage. Patient describes this as a ache. The pain does not radiate anywhere. Patient can point to the area just underneath her right breast as the area where the pain is the worst. Patient states that this morning she felt afraid to walk so she called EMS who brought her into the emergency department. In the emergency department, patient was found to have h yperglycemia with a blood sugar than 500. Patient was given IV insulin and fluid resuscitation and repeat sugar came down into the 400s. Patient states that she is unable to take her diabetic medications because patient has issues with her glucometer stating that the glucometer broke on her and she is unable to care for herself. Patient is struggling at home and has been having frequent falls. Patient states that she has been starting the process of getting placed in a [facility] facility with her primary care provider. Patient reports that she has glaucoma has been unable to get her medications. Patient's eye is red but denies any pain with movement. Patient says it is slightly blurry but does not have any pain in the eye with eye movements. Patient is otherwise feeling well today. PAST MEDICAL HISTORY: 1. Hypertension. 2. Asplenia. 3. Depression. 4. Hypothyroidism 5. Hyperlipidemia 6. Overactive bladder 7. GERD 8. Type 2 diabetes 9. Chronic anemia PAST SURGICAL HISTORY: 1. Splenectomy. 2. Right knee replacement. 3. D&C and uterine polypectomy. 4. Complete hysterectomy with bilateral salpingo-oophorectomy 5. Right total hip arthroplasty 6. Carpal tunnel release 7. Colonoscopy and upper endoscopy 8. Left total hip arthroplasty SOCIAL HISTORY: Patient quit smoking 10 years ago. Patient denies drinking alcohol or use illicit drugs FAMILY HISTORY: Father at 61 [address] Mother has diabetes ALLERGIES: Please see below. REVIEW OF SYSTEMS: General: Patient denies fevers HEENT: Patient denies headaches Cardiovascular: Patient denies chest pain Respiratory: Patient denies shortness of breath, cough GI: Patient denies abdominal pain, nausea, vomiting, diarrhea : Patient denies increased frequency or pain with urination Extremities: Patient denies swelling or pain in extremities Neurological: Patient denies numbness or tingling in legs Skin: Patient denies any new rashes or lesions. Hematologic: Patient denies any easy bruising. Lymphatic: Patient denies any lumps lumps or bumps in neck, axilla, or groin HOME MEDICATIONS: Please see below. PHYSICAL EXAMINATION: VITAL SIGNS: Temperature 97.6, pulse 75, respiratory rate 18, blood pressure 152/67, pulse oximetry 94% on room air. General: Alert and oriented female patient who was sitting on the stretcher in the emergency department I walked in. Patient did not appear to be in any acute distress. HEENT: Normocephalic, atraumatic, moist mucous membranes conjunctival injection of the right eye. Patient was able to move eyes in all directions without any pain. No pain to palpation surrounding the orbit. No redness around the eye. Neck: No lymphadenopathy or thyromegaly Cardiac: Regular rate and rhythm, no murmurs, normal S1, normal S2 Pulm: Clear to auscultation bilaterally. No wheezes, rhonchi, rales Abd: Nondistended, nontender to palpation, normal bowel sounds Ext: No edema bilateral lower extremities Neuro: Patient was able to move all 4 extremities on command and reported equal sensation light touch in all 4 extremities. Skin: Skin of the head, neck, upper and lower extremities was examined did not show any evidence of rash or wounds. LABORATORY DATA: See below. IMAGING: CT the head performed without contrast on 01/31/2021 is reported to show atrophy and microvascular ischemic changes. No acute intracranial hemorrhage, infarction, mass/mass-effect. Rib x-ray on the right performed on 01/31/2021 was reported to show no obvious or displaced rib fracture identified MICROBIOLOGY: Please see below. ASSESSMENT: 66-year-old female presented to the hospital after falling a few days ago and was having trouble taking care of her so was found to have hyperglycemia. . PLAN: 1. Hyperglycemia in the setting of a patient with type 2 diabetes mellitus. Patient will be given long-acting insulin as well as be placed on a sliding scale coverage. Patient will receive 2 more liters of IV hydration as the patient does appear dehydrated which is probably exacerbating the patient's hyperglycemia. Patient will have every 4 hours fingersticks x3 and we will ask nurses to contact medical provider overnight if the patient's blood sugar is still above 400. Patient will be started on diabetic medications once we get her sugar back under control with insulin. 2. Conjunctivitis. Patient states she has a history of glaucoma and was seeing an eye doctor however, I am unable to find this in any records. We will start eyedrops with the patient and if these do not help, ophthalmology will be consulted. 3. Diabetes mellitus. We will continue the treatment with sliding scale insulin and consistent carbohydrate diet. 4. Frequent falls. Patient will be evaluated by physical and Occupational Therapy. Patient may need possible placement. 5. Hypertension. We will continue patient's on medications. 6. Hypothyroidism. Continue patient's on medications. 7. Hyperlipidemia. Continue the patient's home medication. 8. Overactive bladder. Continue patient home medications. 9. GERD. Continue patient's on medications. 10. DVT prophylaxis: Heparin 11. CODE STATUS: Full code Disposition: Patient be met in medical surgical floor. I expect the patient to be discharged after greater than or equal to 2 midnight stay. Vital Signs Vital Signs Date Time Temp Pulse Resp B/P (MAP) Pulse Ox O2 Delivery O2 Flow Rate FiO2 01/31/21 15:56 18 Room Air 01/31/21 11:31 97.6 75 152/67 (95) 94 Laboratory Data Labs 24H Laboratory Tests 2 01/31/21 11:56: Urine Color STRAW, Urine Appearance CLEAR, Urine pH 6.0, Urine Specific [place] 1.025, Urine Protein 3+H, Urine Glucose (Auto)(UA) 3+H, Urine Ketones (Auto) TRACEH, Urine Blood NEGATIVE, Urine Nitrite NEGATIVE, Urine Bilirubin NEGATIVE, Urine Urobilinogen 0.2, Urine Leukocyte Esterase (Auto) NEGATIVE, Urine WBC (Auto) 0, Urine RBC (Auto) 3, Urine Hyaline Casts (Auto) 0, Urine Bacteria (Auto) NEGATIVE, Urine Squamous Epithelial Cells 0, Urine Sperm (Auto) 01/31/21 11:57: Immature Granulocyte % (Auto) 0.7, Neutrophils (%) (Auto) 78.2H, Lymphocytes (%) (Auto) 13.9L, Monocytes (%) (Auto) 5.8, Eosinophils (%) (Auto) 0.7, Basophils (%) (Auto) 0.7, Neutrophils # (Auto) 7.5, Lymphocytes # (Auto) 1.3L, Monocytes # (Auto) 0.6, Eosinophils # (Auto) 0.1, Basophils # (Auto) 0.1, Nucleated Red Blood Cells % (auto) 0.0, Blood Gas Bicarbonate Standard 23.8, Venous Blood pH 7.353, Venous Blood Partial Pressure CO2 49.0, Venous Blood Partial Pressure O2 32.2, Venous Blood Total Carbon Dioxide 28.1H, Venous Blood HCO3 26.6, Venous Blood Oxygen Saturation 57.9L, Venous Blood Base Excess 0.4, Anion Gap 10, Glomerular Filtration Rate 34.5L, Osmolality 316H, Calcium Level 9.0, B- Hydroxybutyrate 4.25H 01/31/21 15:39: Bedside Glucose (Misc Panel) 488H 01/31/21 17:10: CBC/BMP Laboratory Tests 01/31/21 11:57 Home Medications Scheduled Acetaminophen (Acetaminophen) 325 Mg Tablet, 1 TAB PO DAILY for pain or fever Bupropion HCl (Bupropion HCl Sr) 150 Mg Tab, 150 MG PO DAILY Cyanocobalamin (Vitamin B-12) (B-12) 1,000 Mcg Tablet, 1 TAB PO DAILY Empagliflozin (Jardiance) 25 Mg Tablet, 25 MG PO DAILY Ezetimibe (Ezetimibe) 10 Mg Tab, 10 MG PO DAILY Famotidine (Famotidine) 20 Mg Tablet, 1 TAB PO DAILY Ferrous Gluconate (Ferrous Gluconate) 324 Mg Tablet, 1 TAB PO DAILY for iron Folic Acid (Folic Acid) 1 Mg Tablet, 1 TAB PO DAILY Glipizide (Glipizide) 10 Mg Tab, 10 MG PO BID Insulin Lispro (Humalog) 100 Unit/Ml Inj, 1 DOSE SC AC PER SLIDING SCALE Ipratropium/Albuterol Sulfate (Combivent Respimat 20-100 Mcg) 4 Gm Mist.inhal, 1 PUFF INH QID Levothyroxine Sodium (Levothyroxine Sodium) 200 Mcg Tab, 200 MCG PO DAILY Metoprolol Succinate (Metoprolol Succinate) 25 Mg Tab.er.24h, 12.5 MG PO QHS Mirabegron (Myrbetriq) 25 Mg Tab.er.24h, 25 MG PO DAILY PT HAS NOT STARTED YET OF 10/14/19 Nitrofurantoin Monohyd/M-Cryst (Nitrofurantoin [place]-Mcr 100 mg) 100 Mg Capsule, 100 MG PO BID Rosuvastatin Calcium (Rosuvastatin Calcium) 40 Mg Tablet, 40 MG PO DAILY Valsartan (Valsartan) 80 Mg Tablet, 80 MG PO DAILY Scheduled PRN Albuterol Sulfate (Proair Hfa) 108 Mcg/Act Aer, 2 PUFF INH QID PRN for SHORTNESS OF BREATH Allergies Coded Allergies: oxycodone (Verified Adverse Reaction, Mild, confusion, 11/04/20) acetaminophen (Verified Adverse Reaction, Unknown, "I just act crazy", 11/04/20) from percocet hydrocodone (Unverified Adverse Reaction, Unknown, "I just act crazy", 11/04/20) A-FIB/CHADSVASC A-FIB History Current/History of A-Fib/PAF?: No HERSON RAMIREZ DO Jan 31, 2021 17:51
[2021-01-31] MEDS ORDERED: TRAZ-186 PO (19:10)
[2021-01-31] MEDS ORDERED: COMBAER6 INH (19:10)
[2021-01-31] MEDS ORDERED: LEVO25TA5 PO (19:10)
[2021-01-31] MEDS ORDERED: LANTINJ4 SC (19:10)
[2021-01-31] MEDS ORDERED: NOVOINJ SC (19:10)
[2021-01-31] MEDS ORDERED: MELO7.5T35 PO (19:10)
[2021-01-31] MEDS ORDERED: ALEN70TA82 PO (19:10)
[2021-01-31] MEDS ORDERED: ACET50CA PO (19:10)
[2021-01-31] MEDS ORDERED: LEVO200C PO (19:18)
[2021-01-31] MEDS ORDERED: LEXA1TAB PO (19:18)
[2021-01-31] MEDS ORDERED: HOME MED LIST COMPLETE! XX SCH (19:20)
[2021-01-31] MEDS: HumaLOG INSULIN (NovoLOG) PER UNIT SC SCH ×2 (19:36→21:00)
[2021-01-31] MEDS: NS 1,000 ML IV SCH (19:57)
[2021-01-31 20:50] VITALS: BP 140/54
[2021-01-31] MEDS: DOCUSATE SODIUM 100MG CAPSULE PO SCH (22:15)
[2021-01-31] MEDS: POLYTRIM OPTH DROPS 10ML OD SCH (22:15)
[2021-02-01] MEDS ORDERED: ACETAMINOPHEN TAB 650MG DOSE (2X325MG) PO PRN (01:15)
[2021-02-01] MEDS: NS 1,000 ML IV SCH (01:31)
[2021-02-01 06:00] VITALS: BP 161/82
[2021-02-01] MEDS: POLYTRIM OPTH DROPS 10ML OD SCH ×6 (06:00→20:43)
[2021-02-01] MEDS: LEVOTHYROXINE 12.5MCG PER 1/2 TAB (0.0125MG) PO SCH (06:00)
[2021-02-01 06:32] LABS: HEMATOCRIT 38.1 % (36.0-47.0); HEMOGLOBIN 12.5 g/dl (12.0-15.5); MEAN CORPUSCULAR HEMOGLOBIN 32.6 pg (27.0-33.0); MEAN CORPUSCULAR HGB CONC 32.8 g/dl (32.0-36.5); MEAN CORPUSCULAR VOLUME 99.5 fl (80.0-96.0); PLATELET COUNT, AUTOMATED 308 10^3/uL (150-450); RED BLOOD COUNT 3.83 10^6/uL (4.00-5.40); WHITE BLOOD COUNT 9.3 10^3/uL (4.0-10.0)
[2021-02-01 06:43] LABS: CALCIUM LEVEL 8.3 MG/DL (8.8-10.2); CREATININE FOR GFR 1.05 MG/DL (0.55-1.30); GLOMERULAR FILTRATION RATE 55.7 (>45); MAGNESIUM LEVEL 1.9 MG/DL (1.8-2.4)
--- NOTE | 2021-02-01 07:43 | ECGEPIP ---
[facility] - ED Test Date: 2021-01-31 Pat Name: ELI RETANA Department: Room: - Gender: Female [employer]: LUCAS : 1955 Requested By: KERRY BARBOSA PA-C. Order Number: [id number] Reading MD: Phuong Jackson Measurements Intervals [place] Rate: 66 P: 4 MS: 190 QRS: -15 QRSD: 74 T: 25 QT: 498 QTc: 522 Interpretive Statements Normal sinus rhythm Low voltage QRS Inferior infarct , age undetermined Cannot rule out Anteroseptal infarct , age undetermined NSTTW abnormalities similar 06/25/20 Electronically Signed on 02-01-2021 7:43:08 EDT by Phuong Jackson
[2021-02-01] MEDS ORDERED: COMBIVENT RESPIMAT 100-20MCG INHALER 4GM INH PRN (08:15)
[2021-02-01] MEDS ORDERED: traZODone 25MG PER 1/2 TABLET PO PRN (08:15)
[2021-02-01] MEDS ORDERED: FAMOTIDINE 20 MG TAB PO PRN (08:15)
[2021-02-01] MEDS: acetaZOLAMIDE 500 MG ER CAP PO SCH ×2 (09:00→20:42)
[2021-02-01] MEDS ORDERED: LEVEMIR (INSULIN DETEMIR) 1 UNITS/0.01ML SC SCH (09:00)
[2021-02-01] MEDS: ROSUVASTATIN 10 MG TAB (CRESTOR) PO SCH (09:22)
[2021-02-01] MEDS: DOCUSATE SODIUM 100MG CAPSULE PO SCH ×3 (09:22→20:45)
[2021-02-01] MEDS: EZETIMIBE 10MG TABLET (ZETIA) PO SCH (09:22)
[2021-02-01] MEDS: ESCITALOPRAM OXALATE 10 MG TAB (LEXAPRO) PO SCH (09:23)
[2021-02-01] MEDS: HumaLOG INSULIN (NovoLOG) PER UNIT SC SCH ×4 (09:23→20:43)
[2021-02-01] MEDS: LEVOTHYROXINE 100MCG TABLET (0.1MG) PO SCH (09:23)
[2021-02-01] MEDS: VALSARTAN 80 MG TAB (DIOVAN) PO SCH (09:23)
[2021-02-01] MEDS: LEVEMIR (INSULIN DETEMIR) 1 UNITS/0.01ML SC SCH (09:24)
[2021-02-01] MEDS ORDERED: LANC1COM MC (10:28)
[2021-02-01] MEDS ORDERED: GLUCMIS7 XX (10:28)
[2021-02-01] MEDS ORDERED: POLY2.5S OD (10:30)
[2021-02-01] MEDS ORDERED: ALCO1MED8 XX (10:30)
[2021-02-01] MEDS: oxyBUTYnin *DITROPAN XL* 5 MG TABCR PO SCH (12:08)
--- NOTE | 2021-02-01 12:38 | IPNPDOC ---
Text Note Date of Service The patient was seen on 02/01/21. NOTE Subjective: Patient is a 66-year-old female presented yesterday after frequent falls. Patient was also found to have hyperglycemia as she was unable to take about diabetic medications because her glucometer broke. Patient is otherwise feeling well at this time and is asking to go home. Patient did not have any acute events overnight and is otherwise doing well. Review of systems: General: Patient denies fevers HEENT: Patient denies headaches Cardiovascular: Patient denies chest pain Respiratory: Patient denies shortness of breath, cough GI: Patient denies abdominal pain, nausea, vomiting, diarrhea : Patient denies increased frequency or pain with urination Extremities: Patient denies swelling or pain in extremities Neurological: Patient denies numbness or tingling in legs Physical exam: Vitals: See below General: Alert and oriented female patient was sitting up in bed when I walked in. Patient not appear to be in any acute distress. HEENT: Normocephalic, atraumatic, moist mucous membranes. Redness of the right conjunctiva has improved from yesterday, there is no swelling or pain with eye movement Neck: No lymphadenopathy or thyromegaly Cardiac: Regular rate and rhythm, no murmurs, normal S1, normal S2 Pulm: Clear to auscultation bilaterally. No wheezes, rhonchi, rales Abd: Nondistended, nontender to palpation, normal bowel sounds Ext: No edema bilateral lower extremities Labs: See below Imaging: No new imaging has been performed Assessment/plan: 66-year-old female presented to hospital after falling few days ago and having trouble taking care of herself was found to have hyperglycemia 1. Hyperglycemia, improved. Patient has a history of type 2 diabetes mellitus. Patient is on long-acting insulin at home which we will continue with. Patient is otherwise improving with this. Patient will need to be on her home diabetic medications once home. I have sent a new glucometer and have asked nursing staff to teach the patient how to use her glucometer. 2. Conjunctivitis. This is improved. Continue with the polymyxin drops. 3. Diabetes mellitus. Continue the treatment with sliding scale insulin consistent carb diet. 4. Frequent falls. Physical and Occupational Therapy worked with the patient. Patient will need 1 more day of therapy and can possibly be discharged home. 5. Hypertension. Continue on patient's on medications. 6. Hypothyroidism. Continue patient's home medications. 7. Hyperlipidemia. Continue patient's home medications. 8. Overactive bladder. Continue patient's home medications. 9. GERD. Continue patient's home medications. DVT Prophylaxis: Heparin Disposition: Pending improvement with therapy, possible discharge tomorrow VS,[place], I+O VS, Fishbone, I+O Laboratory Tests 02/01/21 05:47 Vital Signs Date Time Temp Pulse Resp B/P (MAP) Pulse Ox O2 Delivery O2 Flow Rate FiO2 02/01/21 09:23 159/82 02/01/21 06:00 97.9 71 18 98 Room Air I&O- Last 24 Hours up to 6 AM 02/01/21 06:00 Intake Total 1130 ml Output Total 400 ml Balance 730 ml HERSON RAMIREZ DO Feb 01, 2021 12:38
[2021-02-01 14:00] VITALS: BP 145/64
[2021-02-01 20:15] VITALS: BP 156/75
[2021-02-02 06:00] VITALS: BP 131/56
[2021-02-02] MEDS: LEVOTHYROXINE 100MCG TABLET (0.1MG) PO SCH (06:23)
[2021-02-02] MEDS: LEVOTHYROXINE 12.5MCG PER 1/2 TAB (0.0125MG) PO SCH (06:23)
[2021-02-02] MEDS: POLYTRIM OPTH DROPS 10ML OD SCH ×3 (06:23→12:31)
[2021-02-02 06:42] LABS: HEMATOCRIT 41.8 % (36.0-47.0); HEMOGLOBIN 13.5 g/dl (12.0-15.5); MEAN CORPUSCULAR HEMOGLOBIN 32.3 pg (27.0-33.0); MEAN CORPUSCULAR HGB CONC 32.3 g/dl (32.0-36.5); PLATELET COUNT, AUTOMATED 299 10^3/uL (150-450); RED BLOOD COUNT 4.18 10^6/uL (4.00-5.40); WHITE BLOOD COUNT 10.1 10^3/uL (4.0-10.0)
[2021-02-02 07:02] LABS: CALCIUM LEVEL 8.7 MG/DL (8.8-10.2); CREATININE FOR GFR 1.17 MG/DL (0.55-1.30); GLOMERULAR FILTRATION RATE 49.1 (>45); MAGNESIUM LEVEL 1.9 MG/DL (1.8-2.4); POTASSIUM SERUM 4.1 MEQ/L (3.5-5.1)
[2021-02-02] MEDS: HumaLOG INSULIN (NovoLOG) PER UNIT SC SCH ×2 (07:53→12:31)
[2021-02-02] MEDS: DOCUSATE SODIUM 100MG CAPSULE PO SCH (09:00)
[2021-02-02] MEDS: LEVEMIR (INSULIN DETEMIR) 1 UNITS/0.01ML SC SCH (09:06)
[2021-02-02 09:09] VITALS: BP 131/56
[2021-02-02] MEDS: ROSUVASTATIN 10 MG TAB (CRESTOR) PO SCH (09:09)
[2021-02-02] MEDS: VALSARTAN 80 MG TAB (DIOVAN) PO SCH (09:09)
[2021-02-02] MEDS: EZETIMIBE 10MG TABLET (ZETIA) PO SCH (09:09)
[2021-02-02] MEDS: oxyBUTYnin *DITROPAN XL* 5 MG TABCR PO SCH (09:10)
[2021-02-02] MEDS: ESCITALOPRAM OXALATE 10 MG TAB (LEXAPRO) PO SCH (09:10)
[2021-02-02] MEDS: acetaZOLAMIDE 500 MG ER CAP PO SCH (09:10)
--- NOTE | 2021-02-02 17:23 | DS.PDOC ---
Discharge Summary General Date of Admission Jan 31, 2021 at 17:20 Date of Discharge 02/02/2021 Primary Care Physician: LUZ MARIA PEGUERO D.O. Attending Physician: HERSON RAMIREZ DO Discharge Summary PROCEDURES PERFORMED DURING STAY: None. ADMITTING DIAGNOSES: 1. Hyperglycemia 2. Conjunctivitis 3. Diabetes mellitus 4. Frequent falls 5. Hypertension 6. Hypothyroidism 7. Hyperlipidemia 8. Overactive bladder 9. GERD DISCHARGE DIAGNOSES: 1. Hyperglycemia, improved 2. Conjunctivitis, improved 3. Diabetes mellitus 4. Frequent falls 5. Hypertension 6. Hypothyroidism 7. Hyperlipidemia 8. Overactive bladder 9. GERD COMPLICATIONS/CHIEF COMPLAINT: Frequent Falls, Hyperglycemia. HISTORY OF PRESENT ILLNESS: Patient is a 66-year-old female who presented today after frequent falls. Patient states that she fell a few days ago and EMS was called. She did not want to go to the hospital. Since then, she been having some pain in her right rib cage. Patient describes this as a ache. The pain does not radiate anywhere. Patient can point to the area just underneath her right breast as the area where the pain is the worst. Patient states that this morning she felt afraid to walk so she called EMS who brought her into the emergency department. In the emergency department, patient was found to have hyperglycemia with a blood sugar than 500. Patient was given IV insulin and fluid resuscitation and repeat sugar came down into the 400s. Patient states that she is unable to take her diabetic medications because patient has issues with her glucometer stating that the glucometer broke on her and she is unable to care for herself. Patient is struggling at home and has been having frequent falls. Patient states that she has been starting the process of getting placed in a group home facility with her primary care provider. Patient reports that she has glaucoma has been unable to get her medications. Patient's eye is red but denies any pain with movement. Patient says it is slightly blurry but does not have any pain in the eye with eye movements. Patient is otherwise feeling well today.. HOSPITAL COURSE: Patient's blood sugar improved with insulin treatment and the patient's eye also improved. Patient was asking to go home on 02/01/2021 however, in speaking with physical therapy they did state that the patient probably needs at least 1 more day of therapy before she would be able to be safely discharged. Patient also needed teaching to be able to use a glucometer as this was the reason why her sugars were too high because she is not taking her medication because she said her glucometer broke. Glucometer was sent for the patient on 01/15/2021 and she spent the rest of the day learning how to use the glucometer. On 02/02/2021, patient was feeling better and the decision was made to discharge the patient home after diabetic teaching. Patient was asking about possible placement into a [facility] however, patient did not qualify at this time. Patient continue this discussion with her primary care provider.. DISCHARGE MEDICATIONS: Please see below. ALLERGIES: Please see below. PHYSICAL EXAMINATION ON DISCHARGE: VITAL SIGNS: Please see below. General: Alert and oriented female patient was sitting up in bed when I walked in. Patient did not appear to be in any acute distress. HEENT: Normocephalic, atraumatic, moist mucous membranes conjunctival injection in the right eye has improved. Neck: No lymphadenopathy or thyromegaly Cardiac: Regular rate and rhythm, no murmurs, normal S1, normal S2 Pulm: Clear to auscultation bilaterally. No wheezes, rhonchi, rales Abd: Nondistended, nontender to palpation, normal bowel sounds Ext: No edema bilateral lower extremities LABORATORY DATA: Please see below. IMAGING: CT the head performed without contrast on 01/31/2021 is reported to show atrophy and microvascular ischemic changes. No acute intracranial hemorrhage, infarction, mass/mass-effect. Rib x-ray on the right performed on 01/31/2021 was reported to show no obvious or displaced rib fracture identified PROGNOSIS: Good ACTIVITY: As tolerated. DIET: Consistent carbohydrate DISCHARGE PLAN: Discharge home with home health service DISPOSITION: 06 Home Health Service. DISCHARGE INSTRUCTIONS: 1. Follow-up with your primary care provider within 3 to 5 days of discharge. 2. Continue taking eyedrops as prescribed 3. Return the emergency department symptoms worsen ITEMS TO FOLLOWUP ON ON OUTPATIENT: 1. Notified us to resolution. DISCHARGE CONDITION: Stable. TIME SPENT ON DISCHARGE: 35 minutes. Vital Signs/I&Os Vital Signs Date Time Temp Pulse Resp B/P (MAP) Pulse Ox O2 Delivery O2 Flow Rate FiO2 02/02/21 09:09 131/56 02/02/21 06:00 96.0 57 18 92 Room Air I&O- Last 24 Hours up to 6 AM 02/02/21 06:00 Intake Total 2910 ml Output Total 0 ml Balance 2910 ml Laboratory Data Labs 24H Laboratory Tests 2 02/01/21 20:23: Bedside Glucose (Misc Panel) 226H 02/02/21 05:55: Nucleated Red Blood Cells % (auto) 0.0, Anion Gap 10, Glomerular Filtration Rate 49.1, Calcium Level 8.7L, Magnesium Level 1.9 02/02/21 11:31: Bedside Glucose (Misc Panel) 253H CBC/BMP Laboratory Tests 02/02/21 05:55 FSBS Laboratory Tests Test 02/01/21 20:23 02/02/21 11:31 Range/Units Bedside Glucose (Misc Panel) 226 253 80-115 MG/DL Discharge Medications Scheduled Acetazolamide (Acetazolamide) 500 Mg Capsule.er, 500 MG PO BID, (Reported) Alendronate Sodium (Alendronate Sodium) 70 Mg Tablet, 70 MG PO QWEEK, (Reported) Cyanocobalamin (Vitamin B-12) (B-12) 1,000 Mcg Tablet, 1 TAB PO DAILY Empagliflozin (Jardiance) 25 Mg Tablet, 25 MG PO DAILY, (Reported) Escitalopram Oxalate (Lexapro) 10 Mg Tablet, 10 MG PO DAILY, (Reported) Ezetimibe (Ezetimibe) 10 Mg Tab, 10 MG PO DAILY, (Reported) Glipizide (Glipizide) 10 Mg Tab, 10 MG PO BID, (Reported) Insulin Aspart (Novolog) 100 Unit/1 Ml Cartridge, 1 DOSE SC AC, (Reported) PER SLIDING SCALE Insulin Glargine,Hum.rec.anlog (Lantus Solostar) 100 Unit/1 Ml Insuln.pen, 12 UNITS SC DAILY, (Reported) Levothyroxine Sodium (Levothyroxine Sodium) 25 Mcg Tablet, 12.5 MCG PO DAILY, (Reported) TAKES WITH 200 MCG TAB FOR 212.5 MCG TOTAL DOSE Levothyroxine Sodium (Levothyroxine) 200 Mcg Capsule, 200 MCG PO DAILY, (Reported) TAKES WITH 12.5 MCG HALF-TAB FOR 212.5 MCG TOTAL DOSE Meloxicam (Meloxicam) 7.5 Mg Tablet, 7.5 MG PO DAILY, (Reported) Mirabegron (Myrbetriq) 25 Mg Tab.er.24h, 25 MG PO DAILY, (Reported) Polymyxin B Sulf/Trimethoprim (Polymyxin B-Tmp Eye Drops) 10 Ml Drops, 1 DROP OD 6XD Rosuvastatin Calcium (Rosuvastatin Calcium) 40 Mg Tablet, 40 MG PO DAILY, (Reported) Valsartan (Valsartan) 80 Mg Tablet, 80 MG PO DAILY, (Reported) Scheduled PRN Acetaminophen (Acetaminophen) 325 Mg Tablet, 325 MG PO DAILY PRN for PAIN LEVEL 1-4, (Reported) Famotidine (Famotidine) 20 Mg Tablet, 20 MG PO QHS PRN for HEARTBURN, (Reported) Ipratropium/Albuterol Sulfate (Combivent Respimat 20-100 Mcg) 4 Gm Mist.inhal, 1 PUFF INH QID PRN for SHORTNESS OF BREATH, (Reported) Trazodone HCl (Trazodone HCl) 50 Mg Tablet, 25 MG PO QHS PRN for INSOMNIA, (Reported) Allergies Coded Allergies: hydrocodone (Unverified Adverse Reaction, Mild, "I just act crazy", 01/31/21) oxycodone (Verified Adverse Reaction, Mild, confusion, 11/04/20) HERSON RAMIREZ DO Feb 02, 2021 17:23
== END 2021-02-02 14:35 | disposition home health service (06) | DRG 639 ==
LOC: M ED 11:21 → EDBD 11:21 → M ED INP 17:20 → ENRESERV 18:57 → M MS5PR 21:00
PROVIDERS: ADMIT Family Medicine; ATTEND Family Medicine
DX: E11.65 Type 2 diabetes mellitus with hyperglycemia (principal); R29.6 Repeated falls; I10 Essential (primary) hypertension; E03.9 Hypothyroidism, unspecified; E78.5 Hyperlipidemia, unspecified; D50.0 Iron deficiency anemia secondary to blood loss (chronic); N32.81 Overactive bladder; Z96.651 Presence of right artificial knee joint; Z90.79 Acquired absence of other genital organ(s); Z96.643 Presence of artificial hip joint, bilateral; Z87.891 Personal history of nicotine dependence; H10.9 Unspecified conjunctivitis; Z79.4 Long term (current) use of insulin; Z79.899 Other long term (current) drug therapy; Z88.5 Allergy status to narcotic agent; Z88.6 Allergy status to analgesic agent; Z20.822 Contact with and (suspected) exposure to COVID-19; S20.211A Contusion of right front wall of thorax, initial encounter; W01.0XXA Fall on same level from slipping, tripping and stumbling without subsequent striking against object, initial encounter; Y92.009 Unspecified place in unspecified non-institutional (private) residence as the place of occurrence of the external cause

== ENCOUNTER 2021-03-12 10:12 | Inpatient (IN) | payer OTHER, MEDICAID ==
[~2021-03-12 10:12] MED LIST changes: +ACET50CA PO; +ALCO1MED8 XX; +GLUCMIS7 XX; +LANC1COM MC; +LANTINJ4 SC; +LEVO200C PO; +LEVO25TA5 PO; +LEXA1TAB PO; +MELO7.5T35 PO; +NOVOINJ SC; +POLY2.5S OD; +TRAZ-186 PO
--- OUTSIDE RECORDS SUMMARY | 2021-03-12 10:18 | CCD ---
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 Active confirmed 458575123 Problem Chronic anemia D64.9 Active confirmed 05348 8006 Problem Depression, unspecified depression type F32.9 Active confirmed 40925696 Problem Gastroesophageal reflux disease, esophagitis pre sence not specified K21.9 Active confirmed 636031135 Problem Asplenia Q89.01 Active confirmed 835402722 Problem Seasonal allergies J30.2 Active confirmed 4 78755328 Problem Acquired hypothyroidism E03.9 Active confirmed 499024075 Problem Type 2 diabetes mellitus with other specified complication E11.69 Active confirmed 016601879045 Problem Diabetes mellitus without me ntion of complication, type II or unspecified type, not stated as uncontrolled 250.00 Activ e confirmed 947209836 Problem Unilateral primary osteoarthritis, left hip M16.12 Active confirmed 399556291112398 Problem Overactive bladder N32.81 Active confirmed 7 64788989 Problem 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 A ctive confirmed 5461207 Problem 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.42 Active confirmed 08824498 Problem Hypertension, unspecified type I10 Active confir med 58778121 Problem 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 Active confirmed 545226968 Problem Type 2 diabetes mellitus with diabetic nephropathy E11.21 Active confirmed 611722838 Problem Smoker F17.200 Active confirmed 39432652 Problem Age-related nuclear cataract, right eye H25.11 Active confirmed 150212712765116 Problem Sleep disturbance G47.9 Active confirmed 53 643980 Problem Insomnia, unspecified type G47.00 Active confirmed 184787974 Problem Chronic kidney disease, stage 4 (severe) N18.4 Active confirmed 968999081 Problem Type 2 diabetes mellitus without complications E11 .9 Active confirmed 273248285 Problem Frequent falls R29.6 Active confirmed 99953 2001 Problem Essential hypertension I10 Active confirmed 69151169 Problem terminal operator (current) use of insulin Z79.4 Activ e confirmed 944763813 Problem Type 2 diabetes mellitus with diabetic chronic kidney disease E11.22 Active confirmed 398922443 Problem Hyperlipidemia, unspecified E78.5 Active confirmed 72351197 Problem History of steroid therapy Z92.241 Active confirmed 536864726 Problem Type 2 diabetes mellitus with complications E11.8 Active confirmed 19735627 ALLERGIES Allergen (clinical drug ingredient) Drug/Non Drug Allergy do cumented on EMR Reaction Allergy Type Onset Date Status Metformin Metformin Nausea/Vomiting Non Drug Allergy Act shanice ENCOUNTERS from 1955 to 2021-02-09 Encounter Location Date Provider [place] [facility] [place] [address] [facility] [address] [phone] [place] [address] 04 Feb, 2021 Thelma Wynn IMMUNIZATIONS Vaccine Route Administration Date Status Meningococcal B 0.5mL Bexsero IM Intramuscular September 23, 2019 A dministered Meningococcal 0.5mL Menveo Groups A,C,Y & W-135 IM Intramuscular May 28, 2019 Administered Meningococcal B VFC 0.5mL Bexsero IM Intramuscular May 28, 2019 Administered Pneumococcal Adult 0.5mL Pneumovax 23 IM Intramuscular September 22 020 Administered HIB 0.5mL IM Intramuscular November 04, 2019 Administered Moderna #1 dose COVID-19 (given elsewhere) SARSCOV2 VAC 100M CG/0.5ML IM Unknown July 15, 2020 Administered Moderna #2 dose COVID-19 (given elsewhere) SARSCOV2 VAC 100M CG/0.5ML IM Unknown August 16, 2020 Administered Influenza 18 yrs & older Flublok IM Intramuscular Jan 27, 2020 Administered Pneumococcal Adult 0.5mL Pneumovax 23 IM Intramuscular November 07, 2011 Administered Pneumococcal 0.5mL Prevnar 13 IM Intramuscular May 28, 2019 A dministered Meningococcal IM Intramuscular November 07, 2011 Administered Influenza 6mo & up Fluzone IM Intramuscular Feb 13, 2012 Admi nistered Influenza 6mo & up Fluzone IM Intramuscular Feb 06, 2011 Admi nistered SOCIAL HISTORY Tobacco Use: Social History Observation [...] Notes Start Da te End Date Status Valsartan 80 MG 1 tab Orally once daily for 30 Days Unknown Trazodone HCl 50 MG 1/2 tablet at bedtime as nee ded Orally Once a day for 90 days Nov, Unknown Rosuvastatin Calcium 40 MG TAKE ONE TABLET BY MOUTH @8AM for 28 Unknown Test Strips - as directed strips tid for 30 days Nov, Unknown OneTouch UltraSoft Lancets One touch lancets Dx: 250.0 2 3 times a day for 30 day(s) Unknown buPROPion HCl ER (SR) 150 MG TAKE ONE TABLET BY MOUTH @8AM for 28 Unknown glipiZIDE 10 MG TAKE ONE TABLET BY MOUTH @8AM and TAKE ONE TABLE T @8PM for 90 Unknown acetaZOLAMIDE ER 500 MG 1 capsule Orally twice daily 2020 Unknown Folic Acid 1 MG 1 tablet Orally Once a day for 90 days Unknown Meloxicam 7.5 MG 1 tablet Orally Daily Feb, Unknown Acetaminophen 325 MG 1 tablet as needed Orally Daily for pain le nathalia 1-4 Feb, Unknown Jardiance 25 MG TAKE ONE TABLET BY MOUTH @8AM for 90 Unknown Insulin Syringe-Needle U-100 1 syringe icd:250.02 iddm subcutaneously Ocnea day at bedtime for 30 days Unknown Famotidine 20 MG 1 tablet at bedtime as needed Orally Onc e a day for 30 day(s) Jun, Unknown Levothyroxine Sodium 200 MCG 1 cap orally once daily for 30 Days Unknown Combivent Respimat 20-100 mcg/act 1 puff Inhalation fo ur times daily as needed for SOB Feb, Unknown Insulin Glargine 100 UNIT/ML 12 units Subcutaneous one time daily every morning for 30 days Nov, Active Levothyroxine Sodium 25 MCG one half (1/2) tablet in t he morning on an empty stomach Orally Once a day for 30 day(s) Nov, Unknown OneTouch Ultra II Test Strips One touch test strips 3 times a day Dx: 250.02 for 30 day(s) Unknown Cyanocobalamin 1000 MCG 1 tablet Orally Daily Feb, Unknown Glucometer DX code E11.9 one touch ultra Daily for 30 days September, Unknown Myrbetriq 25 MG 1 tablet Orally Once a day unsure on dose (25mg or 50 mg) Unknown Insulin Lispro (Human) 100Unit/mL 1 injection subcutan eously ac per sliding scale for 30 days Unknown Ezetimibe 10 MG TAKE ONE TABLET BY MOUTH @8AM for 90 Unknown Alendronate Sodium 70 MG 1 tablet 30 minutes before t he first food, beverage or medicine of the day with plain water Orally one time per week for 30 day(s) Nov, Unknown Escitalopram Oxalate 10 MG 1 tablet Orally Once a day for 28 Unknown Alcohol Prep Swabs 1 use for fingersticks BID and prn topically Twice a day DX 250.02 for 30 day(s) Unknown Polymyxin B-Trimethoprim 52308-3.1 UNIT/ML 1 drop into the right eye Ophthalmic 6 times daily for 5 days Feb, Unknown PROCEDURES No Information RESULTS No Results REASON FOR VISIT [facility] D/C 02/02; Hyperglycemia, Frequent Falls MEDICAL (GENERAL) HISTORY Type Description Date Medical History HTN Medical History Asplenia Medical History Depression Medical History Hypothyroidism Medical History Hyperlipidemia Medical History Overactive bladder Medical History GERD Medical History Type 2 diabetes on 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 Pt denies having any falls since discharge home. Pt reports she is using prescribed eye drops and reports they are working with upcoming appt at eye doctor for 02/16/21. Pt reports she did receive new diabetic testing supplies but is having a problem using her Glucometer and therefore has not been monitoring blood sugars or using fast acting insulin per sliding scale with meals. Pt reports taking oral diabetic agents and taking 12 units of Glargine in the morning as prescribed. Sawmill Worker contacted Vivien nurse from [facility] who is seeing patient today to advise regarding Glucometer. Vivien in agreement to contact office if unable to help pt resolve problem. Pt aware of hospital f/u in office 02/09/21 and plans to attend. Sawmill Worker advised pt to contact office with any questions or concerns that arise. Jessie Sood RN PLAN OF TREATMENT Next Appt Details Provider Name:Vince Tucker, 2020-10-2 9 02:45:00 PM, [address] [facility] [address] , , [place], [address], Insurance Providers Payer Name Payer Address Payer Phone Insured Name Patient Relati onship to Insured Coverage Start Date Coverage End Date [employer] G[employer] [address] [facility] [phone] ELI RETANA MEDICAID Appy Couple [address] [facility] [id number] ELI RETANA
--- OUTSIDE RECORDS SUMMARY | 2021-03-12 10:18 | CCD ---
Author Author [facility] Organization [facility] Address Unknown Phone Unavailable Care Team Providers Care Supervisor Billposting Name Role Phone Vince Tucker Unavailable PROBLEMS Type Condition ICD9-CM Code [id number] Code Onset Dates Condition S tatus W/U Status Risk SNOMED Code Notes Problem Chronic anemia D64.9 Active confirmed 63436 8006 Problem Chronic hemolytic anemia D58.9 Active confirmed 448821149 Problem Asplenia Q89.01 Active confirmed 309269252 Problem Depression, unspecified depression type F32.9 Active confirmed 78153159 Problem Acquired hypothyroidism E03.9 Active confirmed 856702715 Problem Gastroesophageal reflux disease, esophagitis pre sence not specified K21.9 Active confirmed 343561998 Problem Diabetes mellitus without me ntion of complication, type II or unspecified type, not stated as uncontrolled 250.00 Activ e confirmed 502649054 Problem Type 2 diabetes mellitus with diabetic nephropathy E11.21 Active confirmed 052807636 Problem Overactive bladder N32.81 Active confirmed 7 62904486 Problem shelter (current) use of insulin Z79.4 Activ e confirmed 595474685 Problem 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.42 Active confirmed 53337955 Problem Unilateral primary osteoarthritis, left hip M16.12 Active confirmed 124497321545857 Problem 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 Active confirmed 435889397 Problem 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 A ctive confirmed 5554454 Problem Smoker F17.200 Active confirmed 40484879 Problem Hypertension, unspecified type I10 Active confir med 03819982 Problem Type 2 diabetes mellitus with other specified complication E11.69 Active confirmed 558242861311 Problem Age-related nuclear cataract, right eye H25.11 Active confirmed 127795977807890 Problem Insomnia, unspecified type G47.00 Active confirmed 330074356 Problem Type 2 diabetes mellitus with complications E11.8 Active confirmed 22434914 Problem Essential hypertension I10 Active confirmed 30491563 Problem Chronic kidney disease, stage 4 (severe) N18.4 Active confirmed 086134277 Problem Seasonal allergies J30.2 Active confirmed 4 07895146 Problem Type 2 diabetes mellitus without complications E11 .9 Active confirmed 311483455 Problem Sleep disturbance G47.9 Active confirmed 53 285369 Problem Type 2 diabetes mellitus with diabetic chronic kidney disease E11.22 Active confirmed 174808411 Problem Hyperlipidemia, unspecified E78.5 Active confirmed 83206789 Problem History of steroid therapy Z92.241 Active confirmed 830740612 ALLERGIES Allergen (clinical drug ingredient) Drug/Non Drug Allergy do cumented on EMR Reaction Allergy Type Onset Date Status Metformin Metformin Nausea/Vomiting Non Drug Allergy Act shanice ENCOUNTERS from 1955 to 2021-01-16 Encounter Location Date Provider Diagnosis [address] [phone] [place] [address] Dec, Vince Tucker IMMUNIZATIONS Vaccine Route Administration Date Status Moderna #1 dose COVID-19(given elsewhere) SARSCOV2 VAC 100MC G/0.5ML IM Unknown July 15, 2020 Administered Meningococcal B VFC 0.5mL Bexsero IM Intramuscular May 28, 2019 Administered Influenza 18 yrs & older Flublok IM Intramuscular Jan 27, 2020 Administered Moderna #2 dose COVID-19(given elsewhere) SARSCOV2 VAC 100MC G/0.5ML IM Unknown August 16, 2020 Administered HIB 0.5mL IM Intramuscular November 04, 2019 Administered Meningococcal B 0.5mL Bexsero IM Intramuscular September 23, 2019 A dministered Meningococcal 0.5mL Menveo Groups A,C,Y & W-135 IM Intramuscular May 28, 2019 Administered Pneumococcal Adult 0.5mL Pneumovax 23 IM Intramuscular September 22 020 Administered Pneumococcal Adult 0.5mL Pneumovax 23 IM [...] Notes Start Da te End Date Status Folic Acid 1 MG 1 tablet Orally Once a day for 90 days Not-Taking Levothyroxine Sodium 25 MCG one half (1/2) tablet in t he morning on an empty stomach Orally Once a day for 30 day(s) Nov, Active Cetirizine HCl 10 MG 1 cap orally once daily for 30 Days Active Jardiance 25 MG TAKE ONE TABLET BY MOUTH @8AM for 90 Active Fluconazole 150 MG 1 tablet Orally one time for 1 days Nov, Active Ferrous Gluconate 324 (38 Fe) MG 1 tablet with water o r juice between meals Orally every other day for 27 No t-Taking Famotidine 20 MG 1 tablet at bedtime as needed Orally Onc e a day for 30 day(s) Jun, Active Levothyroxine Sodium 200 MCG 1 cap orally once daily for 30 Days Active Alendronate Sodium 70 MG 1 tablet 30 minutes before t he first food, beverage or medicine of the day with plain water Orally one time per week for 30 day(s) Nov, Active Glucometer DX code E11.9 one touch ultra Daily for 30 days September, Active Escitalopram Oxalate 10 MG 1 tablet Orally Once a day for 28 Active Test Strips - as directed strips tid for 30 days Nov, 021 Active OneTouch UltraSoft Lancets One touch lancets Dx: 250.0 2 3 times a day for 30 day(s) Active Valsartan 80 MG 1 tab Orally once daily for 30 Days Active Insulin Lispro (Human) 100Unit/mL 1 injection subcutan eously ac per sliding scale for 30 days Active Sucralfate 1 GM 1 tab Orally once daily for 30 days Not-Taking buPROPion HCl ER (SR) 150 MG TAKE ONE TABLET BY MOUTH @8AM for 28 Active Ezetimibe 10 MG TAKE ONE TABLET BY MOUTH @8AM for 90 Active Nystatin 746618 UNIT/GM 1 application Externally 2-3 times per day prn itchiness for 30 days Nov, Active predniSONE 20 MG TAKE TWO TABLETS BY MOUTH EVERY DAY Oral Not-Taking glipiZIDE 10 MG TAKE ONE TABLET BY MOUTH @8AM and TAKE ONE TABLE T @8PM for 90 Active Omeprazole 20 MG 20 MG PO BID for 25 Not-Taking OneTouch Ultra II Test Strips One touch test strips 3 times a day Dx: 250.02 for 30 day(s) Active Myrbetriq 25 MG 1 tablet Orally Once a day unsure on dose (25mg or 50 mg) Active Lipitor 40 MG 1 tab(s) Orally Once a day for 30 day(s) Apr, Not-Taking Alcohol Prep Swabs 1 use for fingersticks BID and prn topically Twice a day DX 250.02 for 30 day(s) Active Insulin Syringe-Needle U-100 1 syringe icd:250.02 iddm subcutaneously Ocnea day at bedtime for 30 days Active Rosuvastatin Calcium 40 MG TAKE ONE TABLET BY MOUTH @8AM for 28 Active Insulin Glargine 100 UNIT/ML 12 units Subcutaneous one time daily every morning for 30 days Nov, Active Trazodone HCl 50 MG 1/2 tablet at bedtime as nee ded Orally Once a day for 90 days Nov, Active Nystatin 322990 UNIT/GM 1 application Externally 2-3 times per day prn itchiness for 90 day(s) Nov, Active PROCEDURES No Information RESULTS No Results REASON FOR VISIT had to r/s appt MEDICAL (GENERAL) HISTORY Type Description Date Medical History HTN Medical History Asplenia Medical History Depression Medical History Hypothyroidism Medical History Hyperlipidemia Medical History Overactive bladder Medical History GERD Medical History Type 2 diabetes on 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 [id number] ELI RETANA [facility] [address] [address] [facility] [id number] ELI RETANA
--- OUTSIDE RECORDS SUMMARY | 2021-03-12 10:18 | CCD | Continuity of Care Document ---
Author Author Loan COPELAND PA Organization Unknown Address [address], [facility] [address] [place] [address] Phone [phone] Care Team Providers Care Tentmaker Name Role Phone Vesna Kendall AUTM [phone] Delma ByrdC AUTM [phone] Problems Active Problems Provider Date Type 2 diabetes mellitus Onset: 01/11/20 15 Social History Type Date Description Comments Sex Unknown ETOH Use Rarely consumes alcohol Tobacco Use Start: Unknown End: Unknown Patient is a former smoker 1/2 pack a day Allergies, Adverse Reactions, Alerts Active Allergies Criticality Reaction | Severity Comments Date Percocet Unable to assess criticality causes confu wilfredo 11/27/2016 Medications Active Medications SIG Qnty Indications Ordering Provide r Date Meloxicam 7.5mg Tablets 1 by mouth every day with food or milk 30tabs M18.11 Abelardo Montanez MD 021 Metoprolol Tablets ER 24HR 1 by mouth every day Unknown Humalog Kwikpen 100U nit/ML Solution Pen-Inject use three times a day as directed based on sliding scale , maximum daily dose = 100 units Unknown Glipizide Tablets take 1 tablet twice per day with meals M16.0 Unknown Jardiance Tablets 1 by mo ut every day M16.0 Unknown Aspirin Adult Low Dose 81mg Tablets DR M16.0 Unknown Levothyroxine Sodium 200mcg Tablet s 1 by mouth every day Unknown Ezetimibe 10mg Tablets 1 by mouth every day Unknown Cetirizine HCL 10mg Tablets 1 by mouth every day Unknown Valsartan 80mg Tablets Take One Tablet By Mouth @8Am Unknown Rosuvastatin Calcium 40mg Tablets Take One Tablet By Mouth @8Am Unknown Oxybutynin Chloride 5mg Tablets Take One Tablet By Mouth @8Am and Take One Tablet @8PM Un known Omeprazole 20mg Capsules DR Take One Capsule By Mouth @8Am and Take One Capsule @8PM Unknown Global Inject Ease Insulin Syringe/U-100 /1ML/30G X 1/2" 30G X 1/2" 1 ML Misc Use Subcutaneously Three Times Daily Wit h Humulin R Unknown Immunizations Description No Information Available Vital Signs Date Vital Result Comment 12/14/2020 2:37pm Body Temperature 96.9 F Height 61.75 inches 5'1.75" Weight 168.12 lb BMI (Body Mass Index) 31.0 kg/m2 07/09/2019 10:18am Body Temperature 97.8 F Results Description No Information Available Procedures Date Code Description Status 12/14/2020 07288 Office/Outpatient Established Lo w MDM 20-29 Min Completed 12/14/2020 82267 X-Ray Hand Three Views Completed Medical Devices Description No Information Available Encounters Type Date Location Provider Dx Diagnosis Office Visit 12/14/2020 2:00p [place] EN Agarwal M18.11 Unil primary osteoarth of first carpometacarp joint, r hand Assessments Date Code Description Provider 12/14/2020 M18.11 Unilateral primary o steoarthritis of first carpometacarpal joint, right hand EN Agarwal 12/14/2020 M18.11 Unilateral primary o steoarthritis of first carpometacarpal joint, right hand EN Agarwal Plan of Treatment 12/14/2020 - EN Agarwal* M18.11 Unilateral primary osteoarthritis of first carpometacarpal joint, right hand* New Medication:* Meloxicam 7.5 mg - 1 by mouth every day with food or milk * Follow up:* in 6 weeks for right thumb recheck with iid Functional Status Description No Information Available Mental Status Description No Information Available Referrals Description No Information Available
--- OUTSIDE RECORDS SUMMARY | 2021-03-12 10:18 | CCD ---
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 Name Role Phone Vince Tucker Unavailable PROBLEMS Type Condition ICD9-CM Code PIR13-BH Code Onset Dates Condition S tatus W/U Status Risk SNOMED Code Notes Problem Chronic anemia D64.9 Active confirmed 55297 8006 Problem Chronic hemolytic anemia D58.9 Active confirmed 839398941 Problem Asplenia Q89.01 Active confirmed 367726133 Problem Depression, unspecified depression type F32.9 Active confirmed 86659062 Problem Acquired hypothyroidism E03.9 Active confirmed 715979935 Problem Gastroesophageal reflux disease, esophagitis pre sence not specified K21.9 Active confirmed 863982092 Problem Diabetes mellitus without me ntion of complication, type II or unspecified type, not stated as uncontrolled 250.00 Activ e confirmed 155270558 Problem Type 2 diabetes mellitus with diabetic nephropathy E11.21 Active confirmed 383984914 Problem Overactive bladder N32.81 Active confirmed 7 77818680 Problem buttermaker (current) use of insulin Z79.4 Activ e confirmed 216997537 Problem 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.42 Active confirmed 46171680 Problem Unilateral primary osteoarthritis, left hip M16.12 Active confirmed 847245696071967 Problem 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 Active confirmed 904417373 Problem 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 A ctive confirmed 7042046 Problem Smoker F17.200 Active confirmed 49037954 Problem Hypertension, unspecified type I10 Active confir med 53785920 Problem Type 2 diabetes mellitus with other specified complication E11.69 Active confirmed 868188943850 Problem Age-related nuclear cataract, right eye H25.11 Active confirmed 288756629587247 Problem Insomnia, unspecified type G47.00 Active confirmed 701023642 Problem Type 2 diabetes mellitus with complications E11.8 Active confirmed 23423583 Problem Essential hypertension I10 Active confirmed 35843318 Problem Chronic kidney disease, stage 4 (severe) N18.4 Active confirmed 496029856 Problem Seasonal allergies J30.2 Active confirmed 4 74683964 Problem Type 2 diabetes mellitus without complications E11 .9 Active confirmed 676106432 Problem Sleep disturbance G47.9 Active confirmed 53 404407 Problem Type 2 diabetes mellitus with diabetic chronic kidney disease E11.22 Active confirmed 688779128 Problem Hyperlipidemia, unspecified E78.5 Active confirmed 27270279 Problem History of steroid therapy Z92.241 Active confirmed 808131400 ALLERGIES Allergen (clinical drug ingredient) Drug/Non Drug Allergy do cumented on EMR Reaction Allergy Type Onset Date Status Metformin Metformin Nausea/Vomiting Non Drug Allergy Act shanice ENCOUNTERS from 1955 to 2020-12-23 Encounter Location Date Provider Diagnosis [facility] Resident [address] [facility] [phone] [place] [address] 27 Nov, 2020 Vince Garrett buttermaker (current) use of insulin Z79.4 ; Type 2 diabetes mellitus with diabetic chronic kidney disease E11.22 ; Asplenia Q89.01 ; 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 ; Acquired hypothyroidism E03.9 ; Preventative health care Z00.00 ; History of steroid therapy Z92.241 and Headache above the eye region R51.9 IMMUNIZATIONS Vaccine Route Administration Date Status Moderna #1 dose COVID-19(given elsewhere) SARSCOV2 VAC 100MC G/0.5ML IM Unknown July 15, 2020 Administered Meningococcal B VFC 0.5mL Bexsero IM Intramuscular May 28, 2019 Administered Meningococcal B 0.5mL Bexsero IM Intramuscular September 23, 2019 A dministered Pneumococcal Adult 0.5mL Pneumovax 23 IM Intramuscular September 22 020 Administered HIB 0.5mL IM Intramuscular November 04, 2019 Administered Pneumococcal 0.5mL Prevnar 13 IM Intramuscular May 28, 2019 A dministered Meningococcal 0.5mL Menveo Groups A,C,Y & W-135 IM Intramuscular May 28, 2019 Administered Pneumococcal Adult 0.5mL Pneumovax 23 IM Intramuscular November 07, 2011 Administered Moderna #2 dose COVID-19(given elsewhere) SARSCOV2 VAC 100MC G/0.5ML IM Unknown August 16, 2020 Administered Influenza 18 yrs & older Flublok IM Intramuscular Jan 27, 2020 Administered Meningococcal IM Intramuscular November 07, 2011 [...] REASON FOR REFERRAL No Information VITAL SIGNS Weight 181.0 lbs Nov, Height 61.75 in Nov, BMI 33.37 kg/m2 Nov, Heart Rate 77 /min Nov, Respiratory Rate 18 /min Nov, Temperature 96.9 degrees Fahrenheit Nov, Oximetry 96 Nov, Blood pressure systolic 130 mm Hg Nov, Blood pressure diastolic 70 mm Hg Nov, MEDICATIONS Medication SIG (Take, Route, Frequency, Duration) Notes Start Da te End Date Status Folic Acid 1 MG 1 tablet Orally Once a day for 90 days Not-Taking Insulin Glargine 100 UNIT/ML 12 units Subcutaneous one time daily every morning for 30 days Nov, Active Lipitor 40 MG 1 tab(s) Orally Once a day for 30 day(s) Apr, Not-Taking Escitalopram Oxalate 10 MG 1 tablet Orally Once a day for 28 Active Insulin Syringe-Needle U-100 1 syringe icd:250.02 iddm subcutaneously Ocnea day at bedtime for 30 days Active Insulin Lispro (Human) 100Unit/mL 1 injection subcutan eously ac per sliding scale for 30 days Active Valsartan 80 MG 1 tab Orally once daily for 30 Days Active Ferrous Gluconate 324 (38 Fe) MG 1 tablet with water o r juice between meals Orally every other day for 27 No t-Taking glipiZIDE 10 MG TAKE ONE TABLET BY MOUTH @8AM and TAKE ONE TABLE T @8PM for 90 Active Cetirizine HCl 10 MG 1 cap orally once daily for 30 Days Active Sucralfate 1 GM 1 tab Orally once daily for 30 days Not-Taking buPROPion HCl ER (SR) 150 MG TAKE ONE TABLET BY MOUTH @8AM for 28 Active Levothyroxine Sodium 200 MCG 1 cap orally once daily for 30 Days Active Trazodone HCl 50 MG 1/2 tablet at bedtime as nee ded Orally Once a day for 90 days Nov, Active Nystatin 999176 UNIT/GM 1 application Externally 2-3 times per day prn itchiness for 90 day(s) Nov, Active Alcohol Prep Swabs 1 use for fingersticks BID and prn topically Twice a day DX 250.02 for 30 day(s) Active Fluconazole 150 MG 1 tablet Orally one time for 1 days Nov, Active Alendronate Sodium 70 MG 1 tablet 30 minutes before t he first food, beverage or medicine of the day with plain water Orally one time per week for 30 day(s) Nov, Active Jardiance 25 MG TAKE ONE TABLET BY MOUTH @8AM for 90 Active Glucometer DX code E11.9 one touch ultra Daily for 30 days September, Active Ezetimibe 10 MG TAKE ONE TABLET BY MOUTH @8AM for 90 Active Nystatin 697641 UNIT/GM 1 application Externally 2-3 times per day prn itchiness for 30 days Nov, Active Rosuvastatin Calcium 40 MG TAKE ONE TABLET BY MOUTH @8AM for 28 Active Famotidine 20 MG 1 tablet at bedtime as needed Orally Onc e a day for 30 day(s) Jun, Active predniSONE 20 MG TAKE TWO TABLETS BY MOUTH EVERY DAY Oral Not-Taking Myrbetriq 25 MG 1 tablet Orally Once a day unsure on dose (25mg or 50 mg) Active OneTouch UltraSoft Lancets One touch lancets Dx: 250.0 2 3 times a day for 30 day(s) Active Test Strips - as directed strips tid for 30 days Nov, Active Levothyroxine Sodium 25 MCG one half (1/2) tablet in t he morning on an empty stomach Orally Once a day for 30 day(s) Nov, Active OneTouch Ultra II Test Strips One touch test strips 3 times a day Dx: 250.02 for 30 day(s) Active Omeprazole 20 MG 20 MG PO BID for 25 Not-Taking PROCEDURES No Information RESULTS No Results REASON FOR VISIT hyperglycemic episode (TE in chart) Okayed by Garrett mckeon MEDICAL (GENERAL) HISTORY Type Description Date Medical History HTN Medical History Asplenia Medical History Depression Medical History Hypothyroidism Medical History Hyperlipidemia Medical History Overactive bladder Medical History GERD Medical History 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 She is a poorly-controlled diabetic and struggles to consistently check her sugars at home. An A1c ordered last month resulted at 12.7%. Pt kept a log of her daily total insulin lispro use over the past 5 days so we could calculate a starting dose of long-acting insulin. Our plan is to start on a dose that's 60% of her average daily total short-acting amount. Pt did not bring her log to today's appt, so we subsequently called her back to obtain the values. Pt's 5 day daily total long acting use was 20.4 units, and 60% of this amount is 12.24; so we therefore asked pt to take 12 units of insulin glargine (long-acting) daily. We instructed pt to take her long-acting in the mornng so as to have the least potential for sugar rise as insulin tapers off around 20-24 hours. We fervently instructed pt to continue monitoring her home sugars so as to titrate her long acting amount as needed. We will be following up frequently with the pt to ensure proper titration and will see her back in the office in 2 weeks time. 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 Pt received 10 wks of qd po prednisone from 10/2019 through 01/2020, with a taper. Pt also took 4 weeks of rituximab from late 10/2019 through 11/2019. Last Hgb measured was wnl at 14.1 on 07/10/2020 with mild/borderline macrocytosis. Nov, Acquired hypothyroidism (ICD-10 - E03.9) Pt had [facility] and measured TSH was 32.9 with fT2 of 0.26. She had been taking 200 mcg qd levothyroxine. As a result of her labs, we added an additional 12.5 mcg of levothyroxine a day (in the form of 1/2 25 mcg tab qd) to start, and will repeat her TSH 6 weeks after last month's lab draw (which should coincide with her f/u appt in 2 weeks time). We also stopped pt's ezetimibe because it can interfere with levothyroxine absorption (she remains on 40 mg qd atorvastatin). Also of note, a lipid panel was ordered at last month's appt that pt could not complete initially with her other labs since she had not been fasting. It does not appear that the lab has been completed to this point. Nov, Preventative health care (ICD-10 - Z00.00) HCV screen unremarkable, November 2019 HIV screen will need to be performed as no records of prior result was found B/l screening mammogram previously has been ordered and pt is currently awaiting scheduling. Last mammo was in 08/2018 and was essentially a neg study (BIRADS-1). Last c-scope 04/20/2019 w/ no polyps visualized and nothing resected. Please see "Asplenia" assessment section for vaccination status. Pt is a former smoker who has a 30-40 pack year smoking hx and quit within the last 15 years. An order for low-dose lung ct made at last month's appt. Most recent LDCT was in 11/2019 and read as lung RADS2. Due to extended period of steroid use for pt's hemolytic anemia, and as she is a post-menopausal female, DEXA scan is warranted. A DEXA order was made at last month's appt. Nov, History of steroid therapy (ICD-10 - Z92.241) Pt took 10 weeks of po prednisone in Summer 2019 for her IgG+ warm autoimmune hemolytic anemia. As a result of extended steroid use and associated decreased BMD risk, pt was previously started on alendronate. A DEXA scan has also been ordered. Nov, Headache above the eye region (ICD-10 - R51.9) Pt was seen for a same-day appt by a colleague here at the resident clinic earlier this month (11/09/20) for a 10/10, unbearable pain headache. localized to the vertex of her scalp. She noticed it after having cataract sx earlier this year and the intensity seemed to increase earlier this month. A CT w/o contrast was ordered at the same-day appt, along with ESR level due to some mild temporal tenderness (pt denied vision changes). Pt actually went to the ED the next day (11/10/20) and got a CT study which showed no acute intracranial abnormalities; there was atrophy and chronic deep white matter ischemic changes appreciated. Upon px today, pt reports her headaches sxs have resolved. PLAN OF TREATMENT Medication Medication Name Sig Start Date Stop Date Insulin Glargine 100 UNIT/ML 12 units Subcutaneous one time daily every morning for 30 days Nov, Treatment Notes Assessment Notes Clinical Notes Type 2 diabetes mellitus with diabetic chronic kidney diseas e Pt currently takes jardiance 25 mg qd, glipizide 10 mg bid, and short acting insulin (insulin lispro) AC on a sliding scale. She is a poorly-controlled diabetic and struggles to consistently check her sugars at home. An A1c ordered last month resulted at 12.7%.Pt kept a log of her daily total insulin lispro use over the past 5 days so we could calculate a starting dose of long-acting insulin. Our plan is to start on a dose that's 60% of her average daily total short-acting amount. Pt did not bring her log to today's appt, so we subsequently called her back to obtain the values. Pt's 5 day daily total long acting use was 20.4 units, and 60% of this amount is 12.24; so we therefore asked pt to take 12 units of insulin glargine (long-acting) daily. We instructed pt to take her long-acting in the mornng so as to have the least potential for sugar rise as insulin tapers off around 20-24 hours. We fervently instructed pt to continue monitoring her home sugars so as to titrate her long acting amount as needed. We will be following up frequently with the pt to ensure proper titration and will see her back in the office in 2 weeks time. Asplenia Pt is s/p splenectom y (2007 in [place]) due to IgG + autoimmune hemolytic anemia.Vaccination status:Pneumovax springPrevnar Maynd meningococcal B, September 2019; meningococcal BMay 2019Haemophilus influenza, 11/04/2019Pt is now up-to-date for indicated vaccinations and is roughly 4 years away from her next set Warm autoimmune hemolytic anemia S/p spe lenectomyDuring hospitalization in June 2019 for [facility], pt was anemic w/ Hgb 7 and subsequently referred to hematology. Pt received 10 wks of qd po prednisone from 10/2019 through 01/2020, with a taper. Pt also took 4 weeks of rituximab from late 10/2019 through 11/2019.Last Hgb measured was wnl at 14.1 on 07/10/2020 with mild/borderline macrocytosis. Acquired hypothyroidism Pt had been comp laining of fatigue at appt last week and measured TSH was 32.9 with fT2 of 0.26. She had been taking 200 mcg qd levothyroxine. As a result of her labs, we added an additional 12.5 mcg of levothyroxine a day (in the form of 1/2 25 mcg tab qd) to start, and will repeat her TSH 6 weeks after last month's lab draw (which should coincide with her f/u appt in 2 weeks time).We also stopped pt's ezetimibe because it can interfere with levothyroxine absorption (she remains on 40 mg qd atorvastatin).Also of note, a lipid panel was ordered at last month's appt that pt could not complete initially with her other labs since she had not been fasting. It does not appear that the lab has been completed to this point. [facility] care HCV screen unre markable, November 2019HIV screen will need to be performed as no records of prior result was foundB/l screening mammogram previously has been ordered and pt is currently awaiting scheduling. Last mammo was in 08/2018 and was essentially a neg study (BIRADS-1).Last c-scope 04/20/2019 w/ no polyps visualized and nothing resected.Please see "Asplenia" assessment section for vaccination status.Pt is a former smoker who has a 30-40 pack year smoking hx and quit within the last 15 years. An order for low-dose lung ct made at last month's appt. Most recent LDCT was in 11/2019 and read as lung RADS2.Due to extended period of steroid use for pt's hemolytic anemia, and as she is a post-menopausal female, DEXA scan is warranted. A DEXA order was made at last month's appt. History of steroid therapy Pt took 10 we eks of po prednisone in Summer 2019 for her IgG+ warm autoimmune hemolytic anemia. As a result of extended steroid use and associated decreased BMD risk, pt was previously started on alendronate. A DEXA scan has also been ordered. Headache above the eye region Pt was see n for a same-day appt by a colleague here at the resident clinic earlier this month (11/09/20) for a 10/10, unbearable pain headache. localized to the vertex of her scalp. She noticed it after having cataract sx earlier this year and the intensity seemed to increase earlier this month. A CT w/o contrast was ordered at the same-day appt, along with ESR level due to some mild temporal tenderness (pt denied vision changes). Pt actually went to the ED the next day (11/10/20) and got a CT study which showed no acute intracranial abnormalities; there was atrophy and chronic deep white matter ischemic changes appreciated.Upon px today, pt reports her headaches sxs have resolved. Next Appt Details 2 Weeks (please switch 12/05 appt to 12/12) Reason:DM f/u Provider Name:Vince Garrett, [birth year] 7 09:00:00 AM, [address] [facility] [facility], , [place], [address], Follow Up:2 Weeks (please switch 12/05 appt to 12/12)DM f/u Insurance Providers Payer Name Payer Address Payer Phone Insured Name Patient Relati onship to Insured Coverage Start Date Coverage End Date MEDICAID [employer] [address] [facility] [id number] [employer] [employer] [facility] [address] [address] [facility] [id number] ELI [employer]
--- OUTSIDE RECORDS SUMMARY | 2021-03-12 10:18 | CCD ---
Author Author [facility] Organization [facility] Address Unknown Phone Unavailable Care Team Providers Care Sewage Disposal Engineer Name Role Phone Vince Tucker Unavailable PROBLEMS Type Condition ICD9-CM Code [id number] Code Onset Dates Condition S tatus W/U Status Risk SNOMED Code Notes Problem Depression, unspecified depression type F32.9 Active confirmed 10133403 Problem Asplenia Q89.01 Active confirmed 152823256 Problem Chronic anemia D64.9 Active confirmed 78766 8006 Problem Acquired hypothyroidism E03.9 Active confirmed 504845806 Problem Gastroesophageal reflux disease, esophagitis pre sence not specified K21.9 Active confirmed 379775328 Problem Essential hypertension I10 Active confirmed 44069175 Problem Seasonal allergies J30.2 Active confirmed 4 23588692 Problem Age-related nuclear cataract, right eye H25.11 Active confirmed 932043756714014 Problem Type 2 diabetes mellitus with other specified complication E11.69 Active confirmed 038356818144 Problem Chronic hemolytic anemia D58.9 Active confirmed 094014324 Problem 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.42 Active confirmed 62649751 Problem Unilateral primary osteoarthritis, left hip M16.12 Active confirmed [id number] Problem 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 Active confirmed 621588533 Problem 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 A ctive confirmed 2050234 Problem Smoker F17.200 Active confirmed 35183891 Problem Hypertension, unspecified type I10 Active confir med 68903133 Problem Diabetes mellitus without me ntion of complication, type II or unspecified type, not stated as uncontrolled 250.00 Activ e confirmed 807316288 Problem Type 2 diabetes mellitus with diabetic nephropathy E11.21 Active confirmed 833369151 Problem Sleep disturbance G47.9 Active confirmed 53 394624 Problem Insomnia, unspecified type G47.00 Active confirmed 402362850 Problem Type 2 diabetes mellitus with diabetic chronic kidney disease E11.22 Active confirmed 754847597 Problem Hypothyroidism, unspecified type E03.9 Active conf irmed 16364280 Problem senior living (current) use of insulin Z79.4 Activ e confirmed 815603088 Problem Frequent falls R29.6 Active confirmed 69362 2001 Problem Type 2 diabetes mellitus without complications E11 .9 Active confirmed 313558226 Problem Overactive bladder N32.81 Active confirmed 7 03846269 Problem History of steroid therapy Z92.241 Active confirmed 190989974 Problem Hyperlipidemia, unspecified E78.5 Active confirmed 61784504 Problem Chronic kidney disease, stage 4 (severe) N18.4 Active confirmed 844599582 Problem Type 2 diabetes mellitus with complications E11.8 Active confirmed 46102473 ALLERGIES Allergen (clinical drug ingredient) Drug/Non Drug Allergy do cumented on EMR Reaction Allergy Type Onset Date Status Metformin Metformin Nausea/Vomiting Non Drug Allergy Act shanice ENCOUNTERS from 1955 to 2021-02-14 Encounter Location Date Provider Diagnosis [place] [id number] [facility] [place] [phone] [place] [address] 12 Feb, 2021 Vince Tucker Acquired hypothyroidism E03. 9 and Essential hypertension I10 IMMUNIZATIONS Vaccine Route Administration Date Status Moderna #1 dose COVID-19 (given elsewhere) SARSCOV2 VAC 100M CG/0.5ML IM Unknown July 15, 2020 Administered Meningococcal B VFC 0.5mL Bexsero IM Intramuscular May 28, 2019 Administered Influenza 18 yrs & older Flublok IM Intramuscular Jan 27, 2020 Administered Moderna #2 dose COVID-19 (given elsewhere) SARSCOV2 VAC 100M CG/0.5ML IM Unknown August 16, 2020 Administered HIB [...] Notes Start Da te End Date Status Levothyroxine Sodium 25 MCG one half (1/2) tablet in t he morning on an empty stomach Orally Once a day for 30 day(s) Nov, Active Valsartan 80 MG 1 tab Orally once daily for 30 Days Active OneTouch UltraSoft Lancets One touch lancets Dx: 250.0 2 3 times a day for 30 day(s) Active Ezetimibe 10 MG TAKE ONE TABLET BY MOUTH @8AM for 90 Unknown Insulin Syringe-Needle U-100 1 syringe icd:250.02 iddm subcutaneously Ocnea day at bedtime for 30 days used once yesterday since hospital discharge Active Alendronate Sodium 70 MG 1 tablet 30 minutes before t he first food, beverage or medicine of the day with plain water Orally one time per week for 30 day(s) Nov, Unknown Insulin Glargine 100 UNIT/ML 12 units Subcutaneous one time daily every morning for 30 days Nov, Active Famotidine 20 MG 1 tablet at bedtime as needed Orally Onc e a day for 30 day(s) Jun, Unknown Myrbetriq 25 MG 1 tablet Orally Once a day unsure on dose (25mg or 50 mg) Unknown Jardiance 25 MG TAKE ONE TABLET BY MOUTH @8AM for 90 Unknown Escitalopram Oxalate 10 MG 1 tablet Orally Once a day for 28 Unknown Test Strips - as directed strips tid for 30 days Nov, 2 021 Unknown OneTouch Ultra II Test Strips One touch test strips 3 times a day Dx: 250.02 for 30 day(s) Active Meloxicam 7.5 MG 1 tablet Orally Daily Feb, Unknown Trazodone HCl 50 MG 1/2 tablet at bedtime as nee ded Orally Once a day for 90 days Nov, Unknown Insulin Lispro (Human) 100Unit/mL 1 injection subcutan eously three times daily sliding scale used once yesterday since hospital discharge Active Combivent Respimat 20-100 mcg/act 1 puff Inhalation fo ur times daily as needed for SOB Feb, Unknown glipiZIDE 10 MG TAKE ONE TABLET BY MOUTH @8AM and TAKE ONE TABLE T @8PM for 90 Unknown Glucometer DX code E11.9 one touch ultra Daily for 30 days September, Unknown Levothyroxine Sodium 200 MCG 1 cap orally once daily for 30 Days Active buPROPion HCl ER (SR) 150 MG TAKE ONE TABLET BY MOUTH @8AM for 28 Unknown Rosuvastatin Calcium 40 MG TAKE ONE TABLET BY MOUTH @8AM for 28 Unknown Folic Acid 1 MG 1 tablet Orally Once a day for 90 days Unknown acetaZOLAMIDE ER 500 MG 1 capsule Orally twice daily 2020 Unknown Polymyxin B-Trimethoprim 14223-6.1 UNIT/ML 1 drop into the right eye Ophthalmic 6 times daily for 5 days Feb, Unknown Cyanocobalamin 1000 MCG 1 tablet Orally Daily Feb, Unknown Acetaminophen 325 MG 1 tablet as needed Orally Daily for pain le nathalia 1-4 Feb, Unknown Alcohol Prep Swabs 1 use for fingersticks BID and prn topically Twice a day DX 250.02 for 30 day(s) Unknown PROCEDURES No Information RESULTS No Results REASON FOR VISIT medication MEDICAL (GENERAL) HISTORY Type Description Date Medical History HTN Medical History Asplenia Medical History Depression Medical History Hypothyroidism Medical History Hyperlipidemia Medical History Overactive bladder Medical History GERD Medical History Type 2 diabetes on 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 Giovanna Ward Medical History Chronic anemia (hemolytic [...] Treatment Notes Treatm ent Clinical Notes Feb, Acquired hypothyroidism (ICD-10 - E03.9) Feb, Essential hypertension (ICD-10 - I10) PLAN OF TREATMENT Medication Medication Name Sig Start Date Stop Date Levothyroxine Sodium 200 MCG 1 cap orally once daily for 30 Days Levothyroxine Sodium 25 MCG one half (1/2) tablet in t he morning on an empty stomach Orally Once a day for 30 day(s) Nov, Valsartan 80 MG 1 tab Orally once daily for 30 Days Next Appt Details Provider Name:Vince Tucker, 2020-10-2 9 02:45:00 PM, [address] [facility], , [place], [address], Insurance Providers Payer Name Payer Address Payer Phone Insured Name Patient Relati onship to Insured Coverage Start Date Coverage End Date [employer] GOLD [address] [address] [facility] [phone] ELI RETANA [facility]ID [facility] [address] [facility] [id number] ELI RETANA
--- OUTSIDE RECORDS SUMMARY | 2021-03-12 10:18 | CCD ---
Author Author [facility] Organization [facility] Address Unknown Phone Unavailable Care Team Providers Care Thai Masseur Name Role Phone Vince Tucker Unavailable PROBLEMS Type Condition ICD9-CM Code [id number] Code Onset Dates Condition S tatus W/U Status Risk SNOMED Code Notes Problem Chronic anemia D64.9 Active confirmed 46815 8006 Problem Chronic hemolytic anemia D58.9 Active confirmed 268999832 Problem Asplenia Q89.01 Active confirmed 667222137 Problem Depression, unspecified depression type F32.9 Active confirmed 38342631 Problem Acquired hypothyroidism E03.9 Active confirmed 157003196 Problem Gastroesophageal reflux disease, esophagitis pre sence not specified K21.9 Active confirmed 143209491 Problem Diabetes mellitus without me ntion of complication, type II or unspecified type, not stated as uncontrolled 250.00 Activ e confirmed 848260268 Problem Type 2 diabetes mellitus with diabetic nephropathy E11.21 Active confirmed 610811342 Problem Overactive bladder N32.81 Active confirmed 7 26052865 Problem jail (current) use of insulin Z79.4 Activ e confirmed 766845832 Problem 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.42 Active confirmed 82191827 Problem Unilateral primary osteoarthritis, left hip M16.12 Active confirmed 478405659279507 Problem 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 Active confirmed 539583635 Problem 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 A ctive confirmed 1028533 Problem Smoker F17.200 Active confirmed 79773354 Problem Hypertension, unspecified type I10 Active confir med 67150770 Problem Type 2 diabetes mellitus with other specified complication E11.69 Active confirmed 244922215460 Problem Age-related nuclear cataract, right eye H25.11 Active confirmed 190339227528793 Problem Insomnia, unspecified type G47.00 Active confirmed 526938974 Problem Type 2 diabetes mellitus with complications E11.8 Active confirmed 37457362 Problem Essential hypertension I10 Active confirmed 66847837 Problem Chronic kidney disease, stage 4 (severe) N18.4 Active confirmed 590494504 Problem Seasonal allergies J30.2 Active confirmed 4 09981727 Problem Type 2 diabetes mellitus without complications E11 .9 Active confirmed 048871506 Problem Sleep disturbance G47.9 Active confirmed 53 312264 Problem Type 2 diabetes mellitus with diabetic chronic kidney disease E11.22 Active confirmed 803967046 Problem Hyperlipidemia, unspecified E78.5 Active confirmed 44021949 Problem History of steroid therapy Z92.241 Active confirmed 694321634 ALLERGIES Allergen (clinical drug ingredient) Drug/Non Drug Allergy do cumented on EMR Reaction Allergy Type Onset Date Status Metformin Metformin Nausea/Vomiting Non Drug Allergy Act shanice ENCOUNTERS from 1955 to 2021-02-06 Encounter Location Date Provider Diagnosis [address] [phone] [place] [address] Jan, Vince Tucker IMMUNIZATIONS Vaccine Route Administration Date [...] Notes Start Da te End Date Status Cyanocobalamin 1000 MCG 1 tablet Orally Daily Feb, Active Folic Acid 1 MG 1 tablet Orally Once a day for 90 days Active Rosuvastatin Calcium 40 MG TAKE ONE TABLET BY MOUTH @8AM for 28 Active Meloxicam 7.5 MG 1 tablet Orally Daily Feb, Active Insulin Lispro (Human) 100Unit/mL 1 injection subcutan eously ac per sliding scale for 30 days Active buPROPion HCl ER (SR) 150 MG TAKE ONE TABLET BY MOUTH @8AM for 28 Active Insulin Glargine 100 UNIT/ML 12 units Subcutaneous one time daily every morning for 30 days Nov, Active Combivent Respimat 20-100 mcg/act 1 puff Inhalation fo ur times daily as needed for SOB Feb, Active Trazodone HCl 50 MG 1/2 tablet at bedtime as nee ded Orally Once a day for 90 days Nov, Active Insulin Syringe-Needle U-100 1 syringe icd:250.02 iddm subcutaneously Ocnea day at bedtime for 30 days Active Test Strips - as directed strips tid for 30 days Nov, Active Escitalopram Oxalate 10 MG 1 tablet Orally Once a day for 28 Active Alendronate Sodium 70 MG 1 tablet 30 minutes before t he first food, beverage or medicine of the day with plain water Orally one time per week for 30 day(s) Nov, Active Glucometer DX code E11.9 one touch ultra Daily for 30 days September, Active Levothyroxine Sodium 200 MCG 1 cap orally once daily for 30 Days Active Valsartan 80 MG 1 tab Orally once daily for 30 Days Active Polymyxin B-Trimethoprim 00389-3.1 UNIT/ML 1 drop into the right eye Ophthalmic 6 times daily for 5 days Feb, Active Levothyroxine Sodium 25 MCG one half (1/2) tablet in t he morning on an empty stomach Orally Once a day for 30 day(s) Nov, Active Jardiance 25 MG TAKE ONE TABLET BY MOUTH @8AM for 90 Active OneTouch UltraSoft Lancets One touch lancets Dx: 250.0 2 3 times a day for 30 day(s) Active OneTouch Ultra II Test Strips One touch test strips 3 times a day Dx: 250.02 for 30 day(s) Active Myrbetriq 25 MG 1 tablet Orally Once a day unsure on dose (25mg or 50 mg) Active Alcohol Prep Swabs 1 use for fingersticks BID and prn topically Twice a day DX 250.02 for 30 day(s) Active glipiZIDE 10 MG TAKE ONE TABLET BY MOUTH @8AM and TAKE ONE TABLE T @8PM for 90 Active Ezetimibe 10 MG TAKE ONE TABLET BY MOUTH @8AM for 90 Active Famotidine 20 MG 1 tablet at bedtime as needed Orally Onc e a day for 30 day(s) Jun, Active Acetaminophen 325 MG 1 tablet as needed Orally Daily for pain le nathalia 1-4 Feb, Active acetaZOLAMIDE ER 500 MG 1 capsule Orally twice daily Oc 2020 Active PROCEDURES No Information RESULTS No Results REASON FOR VISIT fall MEDICAL (GENERAL) HISTORY Type Description Date Medical History HTN Medical History Asplenia Medical History Depression Medical History Hypothyroidism Medical History Hyperlipidemia Medical History Overactive bladder Medical History GERD Medical History Type 2 diabetes on 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 Giovanna Ward Medical History Chronic anemia (hemolytic [...] PLAN OF TREATMENT Next Appt Details Provider Name:Thelma Wynn, 2021-02-09 08 :30:00 AM, [address] [facility], , [place], [address], Provider Name:Vince Garrett, 2021-02-03 9 02:45:00 PM, [address] [facility], , [place], [address], Insurance Providers Payer Name Payer Address Payer Phone Insured Name Patient Relati onship to Insured Coverage Start Date Coverage End Date [employer] GOLD [address] [address] [facility] [id number] ELI RETANA MEDICAID [facility] [address] [facility] [id number] ELI RETANA self
--- OUTSIDE RECORDS SUMMARY | 2021-03-12 10:19 | CCD ---
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 Active confirmed 191455120 Problem Asplenia Q89.01 Active confirmed 426619026 Problem Depression, unspecified depression type F32.9 Active confirmed 74343837 Problem Acquired hypothyroidism E03.9 Active confirmed 056966801 Problem Gastroesophageal reflux disease, esophagitis pre sence not specified K21.9 Active confirmed 095603501 Problem Diabetes mellitus without me ntion of complication, type II or unspecified type, not stated as uncontrolled 250.00 Activ e confirmed 063587165 Problem Type 2 diabetes mellitus with diabetic nephropathy E11.21 Active confirmed 158434686 Problem Overactive bladder N32.81 Active confirmed 7 54068852 Problem [employer] (current) use of insulin Z79.4 Activ e confirmed 529328442 Problem 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.42 Active confirmed 99111436 Problem Unilateral primary osteoarthritis, left hip M16.12 Active confirmed 488571192494185 Problem 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 Active confirmed 998523001 Problem 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 A ctive confirmed 1502296 Problem Smoker F17.200 Active confirmed 01167586 Problem Hypertension, unspecified type I10 Active confir med 11544269 Problem Type 2 diabetes mellitus with other specified complication E11.69 Active confirmed 883503541915 Problem Age-related nuclear cataract, right eye H25.11 Active confirmed 420046866749106 Problem Insomnia, unspecified type G47.00 Active confirmed 405977320 Problem Type 2 diabetes mellitus with complications E11.8 Active confirmed 84795806 Problem Essential hypertension I10 Active confirmed 73559734 Problem Chronic kidney disease, stage 4 (severe) N18.4 Active confirmed 470473596 Problem Seasonal allergies J30.2 Active confirmed 4 77939181 Problem Type 2 diabetes mellitus without complications E11 .9 Active confirmed 677863051 Problem Sleep disturbance G47.9 Active confirmed 53 605614 Problem Type 2 diabetes mellitus with diabetic chronic kidney disease E11.22 Active confirmed 624275220 Problem Hyperlipidemia, unspecified E78.5 Active confirmed 06466588 Problem History of steroid therapy Z92.241 Active confirmed 650652465 ALLERGIES Allergen (clinical drug ingredient) Drug/Non Drug Allergy do cumented on EMR Reaction Allergy Type Onset Date Status Metformin Metformin Nausea/Vomiting Non Drug Allergy Act shanice ENCOUNTERS from 1955 to 2020-12-20 Encounter Location Date Provider Diagnosis [facility] Resident 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 ; Depression, unspecified depression type F32.9 ; Screening for osteoporosis Z13.820 ; Asplenia Q89.01 ; Former smoker Z87.891 ; Personal history of nicotine dependence Z87.891 ; Encounter for screening for malignant neoplasm of respiratory organs Z12.2 and Insomnia, unspecified type G47.00 IMMUNIZATIONS Vaccine Route Administration Date Status Pneumococcal Adult 0.5mL Pneumovax 23 IM Intramuscular September 22 020 Administered Meningococcal 0.5mL Menveo Groups A,C,Y & W-135 IM Intramuscular May 28, 2019 Administered Meningococcal B VFC 0.5mL Bexsero IM Intramuscular May 28, 2019 Administered Meningococcal B 0.5mL Bexsero IM Intramuscular September 23, 2019 A dministered HIB 0.5mL IM Intramuscular November 04, 2019 Administered Pneumococcal Adult 0.5mL Pneumovax 23 IM Intramuscular November 07, 2011 Administered Moderna #1 dose COVID-19(given elsewhere) SARSCOV2 VAC 100MC G/0.5ML IM Unknown July 15, 2020 Administered Moderna #2 dose COVID-19(given elsewhere) SARSCOV2 VAC 100MC G/0.5ML IM Unknown August 16, 2020 Administered Influenza 18 yrs & older Flublok IM Intramuscular Jan 27, 2020 Administered Pneumococcal 0.5mL Prevnar 13 IM Intramuscular [...] FOR REFERRAL No Information VITAL SIGNS Weight 184.6 lbs Jun, Height 61.75 in Jun, BMI 34.03 kg/m2 Jun, Heart Rate 84 /min Jun, Respiratory Rate 18 /min Jun, Temperature 97.1 degrees Fahrenheit Jun, Oximetry 95 Jun, Blood pressure systolic 120 mm Hg Jun, Blood pressure diastolic 74 mm Hg Jun, MEDICATIONS Medication SIG (Take, Route, Frequency, Duration) [...] day for 90 days Nov, Active Nystatin 159604 UNIT/GM 1 application Externally 2-3 times per [...] TAKE ONE TABLET BY MOUTH @8AM for Active Glucometer DX code E11.9 one touch ultra Daily for 30 days September, Active Ezetimibe 10 MG TAKE ONE TABLET BY MOUTH @8AM for 90 Active Nystatin 788631 UNIT/GM 1 application Externally 2-3 times per [...] Information RESULTS No Results REASON FOR VISIT AWE MEDICAL (GENERAL) HISTORY Type Description Date Medical History HTN Medical History Asplenia Medical History Depression Medical History Hypothyroidism Medical History Hyperlipidemia Medical History Overactive bladder Medical History GERD Medical History Type 2 diabetes on insulin: Iridologist Giovanna Ward Medical History Chronic anemia (hemolytic [...] Tunnel Release Surgical History Colonoscopy (Dr. Israel Early all); 2019 had upper endoscopy in addition to colonoscopy Surgical History Left total hip arthroplasty (Dr. Abelardo Montanez) 06/2019 Hospitalization History New onset Diabetes feb 2010 Hospitalization History Orthostatic Hypotension 05/2019 Goals Section No Information Health Concerns No Information MEDICAL EQUIPMENT No Information MENTAL STATUS No Information FUNCTIONAL STATUS No Information ASSESSMENTS Encounter Date Diagnosis Assessment Notes Treatment Notes Treatm ent Clinical Notes Jun, Annual physical exam (ICD-10 - Z00.00) Patient presents for her annual wellness exam. She currently uses [employer] and Medicaid for her insurance; it appears Medicare is no longer active for the patient. Physical examination findings found in "Examination" section of note. Jun, Type 2 diabetes mellitus wit h diabetic chronic kidney disease (ICD- 10 - E11.22) Currently on glipizide 10 mg twice a day, short acting insulin (insulin lispro) before meals on a sliding scale, and Jardiance 25 mg daily. Patient has not consistently gotten labs we have ordered on previous visits and her most recent sugars are from outpatient hematology visits that have been elevated. She struggles to consistently check her sugars at home and that when she does check them, they run in the upper 180s, occasionally hitting upper 200s and even 300. Due to not following through on labs, her last A1c on record was obtained in 2018; is important to note that with her warm autoimmune hemolytic anemia, hemoglobin A1c may be less accurate gauge of her serum glucose than actual serum glucose lab measurement. Repeat A1c ordered today. Has history of CKD stage IIIb. An urine microalbumin was previously ordered at prior visit and never obtained to assess for status of nephropathy. As result, microalbumin has been ordered again today. Please see chronic kidney disease assessment section for more details. Jun, Chronic kidney disease, stage 3b (ICD-10 - N18.3 2) Patient has a history of CKD 3B. Her most recent metabolic panel was ordered last month prior to her right cataract surgery with serum creatinine of 1.4 and calculated GFR of 40%. Of note, this is actually an improvement over her prior labs from 3 months before that had a creatinine of 1.55 and a calculated GFR of 35.6%. Due to the metabolic panel recently being drawn for surgery, will not order BMP at this time, but as stated in the diabetes assessment section, will get a microalbumin as patient has failed to have this drawn when ordered after previous visits. In addition, we have advised the patient to stop taking her prn ibuprofen due to her stage 3b chronic kidney disease. We recommended Tylenol as needed for now should she have general aches and pains associated with MSK issues. Patient understands reason for the switch in medication and verbalizes agreement plan. Jun, Acquired hypothyroidism (ICD-10 - E03.9) Similar to other labs, patient has not gotten thyroid panel drawn following previous office appointments. She is currently on 200 mcg daily of levothyroxine. We will again order a TSH today to assess the effectiveness of this medication and current dosage. Of note, her last TSH from 1 year ago was unremarkable (0.471). Jun, [facility] care (ICD-10 - Z00.00) Patient's last mammogram was in August 2018 and was read as BI-RADS 1/negative mammogram. An order for a repeat bilateral screening mammogram has previously been made. Patient took oral prednisone for her warm autoimmune hemolytic anemia beginning on 10/25/2019 at a 40 mg daily dosing was tapered from 40 mg down to 20 mg, then 10 mg, then 5 mg, and then ultimately prescription was stopped on 01/12/2020. As this represents a roughly 10-week period of taking oral steroids, patient warranted administration of bisphosphonate. Alendronate 70 mg weekly was started at a prior appointment. In addition, a DEXA scan was also previously ordered and patient scheduled to have this done in 2 weeks Patient's last colonoscopy was on 04/20/[address] Castillo of general surg [facility]. Impression red "mushy stool in anal orifice found on digital rectal exam. Diverticulosis in the sigmoid colon. Stool in the proximal ascending colon, in the mid ascending colon and in the cecum, the examination was otherwise unremarkable." Patient was 64yo at time of that last scope and conversation will be necessary at follow-up in 10 years time when she is 74 as to whether or not a repeat screening colonoscopy will be warranted; since she has multiple medical issues and will be at the fringe age range for screening. Patient is a former smoker having smoked for total 40 years and quitting in 2010. Therefore, low-dose lung CT is warranted on a yearly basis. She received her last screening CT only 7 months ago (was read as lung RADS category 2 with no change from prior exam, no new abnormal nodules, opacities, or masses), so we will order a repeat study upon follow-up when it is closer to the 1 year interval. Hepatitis C screen was unremarkable in November 2019. We will obtain an HIV screen at follow-up appointment as this has not been done per prior records. Please see asplenia assessment section for update on immunizations related to her postsplenectomy status. Jun, Hypertension, unspecified type (ICD-10 - I10) She is currently on 25 mg half a tablet daily of metoprolol succinate (longer- acting metoprolol) and 80 mg of valsartan. As stated in HPI, patient has recent positive orthostatic blood pressures at outpatient appointment and has had lightheadedness. Her pressures are well controlled today. We had wanted to assess for diabetic nephropathy via labs from previous appointment but patient did not follow through. The plan at that time was to likely stop the beta- ronald and continue with her ARB if there were signs of nephropathy on labs; especially considering there is no clear-cut indication for patient to be on a beta-ronald. Microalbumin was ordered again today but due to her positive review systems with lightheadedness, controlled blood pressure on presentation today, we collaboratively decided to stop the metoprolol and continue only with her valsartan. Jun, shelter (current) use of insulin (ICD-10 - Z79 .4) Currently takes short acting insulin (insulin lispro) on a sliding scale basis before meals. Please refer to diabetes assessment section for more details. Jun, Gastroesophageal reflux dise ase, esophagitis presence not specified (ICD-10 - K21.9) Patient had previously been on omeprazole 20 mg daily. PPI medications have shown to be deleterious in the setting of chronic kidney disease and as such we have stopped her omeprazole after weaning to every other day administration and now we will switch to sole treatment in the form of famotidine. 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 She currently follows with Dr. Matias at the [facility] for cancer care for hematology outpatient visits. She was given a 4-week's worth of rituximab last summer and subsequently started on 10 weeks of oral steroids (prednisone) that was subsequently tapered. The rituximab and steroids were started in the setting of worsening anemia after undergoing hip replacement in winter 2019. Jun, Depression, unspecified depression type (ICD-10 - F32.9) She is currently on both Wellbutrin and 10 mg of Lexapro daily. As we continue to follow patient's chronic kidney disease and labs, consideration will be given to switching to Wellbutrin only for monotherapy as SSRIs have been known to worsen CKD. Jun, Screening for osteoporosis (ICD-10 - Z13.820) As discussed in preventative health assessment section, patient received 10 weeks of oral steroids for her autoimmune hemolytic anemia and was subsequently started on 70 mg weekly of alendronate. A DEXA scan has previously been ordered and she is scheduled to get the study done in 2 weeks time. 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 The splenectomy was done in [facility]. Received Pneumovax 23 in spring 2019 and had previously received Prevnar 13 in May 2019. Received second meningococcal B vaccination in September 2019 (first dose given in May 2019). Receive Haemophilus influenza B vaccination on 11/04/2019. With all these current vaccines over the past year since establishing care with us, patient is now approximately 4 and half years away from her neck set of vaccines. Jun, Former smoker (ICD-10 - Z87.891) As discussed in preventative health assessment section, patient is a former smoker with a 83-90-afyo-year history having quit 10 years ago. She last got a low-dose lung CT screen in November 2019 that was BI-RADS 2 and unremarkable as compared to prior study. Since it is only been approximately 7months we will wait until follow-up appointment to order this years low-dose lung CT at a more appropriate 1 year interval. Jun, Personal history of nicotine dependence (ICD-10 - Z87.891) Please see former smoker assessment section. Jun, Encounter for screening for malignant neoplasm of respiratory organs (ICD-10 - Z12.2) Please see preventative care and former smoker assessment sections. Jun, Insomnia, unspecified type (ICD-10 - G47.00) Refilled patient's trazodone. Patient reports tolerating the medication well and it has been beneficial assisting her for sleep. PLAN OF TREATMENT Medication Medication Name Sig Start Date Stop Date Insulin Glargine 100 UNIT/ML 12 units Subcutaneous one time daily every morning for 30 days Nov, Treatment Notes Assessment Notes Clinical Notes Personal history of nicotine dependence Please see former smoker assessment section. Annual physical exam Patient presents fo r her annual wellness exam. She currently uses [employer] and Medicaid for her insurance; it appears Medicare is no longer active for the patient. Physical examination findings found in "Examination" section of note. Former smoker As discussed in prev entative health assessment section, patient is a former smoker with a 61-08-evco-year history having quit 10 years ago. She last got a low-dose lung CT screen in November 2019 that was BI-RADS 2 and unremarkable as compared to prior study. Since it is only been approximately 7months we will wait until follow-up appointment to order this years low-dose lung CT at a more appropriate 1 year interval. Type 2 diabetes mellitus with diabetic chronic kidney diseas e Currently on glipizide 10 mg twice a day, short acting insulin (insulin lispro) before meals on a sliding scale, and Jardiance 25 mg daily. Patient has not consistently gotten labs we have ordered on previous visits and her most recent sugars are from outpatient hematology visits that have been elevated. She struggles to consistently check her sugars at home and that when she does check them, they r un in the upper 180s, occasionally hitting upper 200s and even 300. Due to not following through on labs, her last A1c on record was obtained in 2017; is important to note that with her warm autoimmune hemolytic anemia, hemoglobin A1c may be less accurate gauge of her serum glucose than actual serum glucose lab measurement. Repeat A1c ordered today.Has history of CKD stage IIIb. An urine microalbumin was previously ordered at prior visit and never obtained to assess for status of nephropathy. As result, microalbumin has been ordered again today. Please see chronic kidney disease assessment section for more details. Insomnia, unspecified type Refilled radha ent's trazodone. Patient reports tolerating the medication well and it has been beneficial assisting her for sleep. Chronic kidney disease, stage 3b Patient has a history of CKD 3B. Her most recent metabolic panel was ordered last month prior to her right cataract surgery with serum creatinine of 1.4 and calculated GFR of 40%. Of note, this is actually an improvement over her prior labs from 3 months before that had a creatinine of 1.55 and a calculated GFR of 35.6%. Due to the metabolic panel recently being drawn for surgery, will not order BMP at this time, but as stated in the diabetes assessment section, will get a microalbumin as patient has failed to have this drawn when ordered after previous visits.In addition, we have advised the patient to stop taking her prn ibuprofen due to her stage 3b chronic kidney disease. We recommended Tylenol as needed for now should she have general aches and pains associated with MSK issues. Patient understands reason for the switch in medication and verbalizes agreement plan. Encounter for screening for malignant neoplasm of respirator y organs Please see preventative care and former smoker assessment sections. Acquired hypothyroidism Similar to other labs, patient has not gotten thyroid panel drawn following previous office appointments. She is currently on 200 mcg daily of levothyroxine. We will again order a TSH today to assess the effectiveness of this medication and current dosage. Of note, her last TSH from 1 year ago was unremarkable (0.471). health care Patient's last mammogram was in August 2018 and was read as BI-RADS 1/negative mammogram. An order for a repeat bilateral screening mammogram has previously been made.Patient took oral prednisone for her warm autoimmune hemolytic anemia beginning on 10/25/2019 at a 40 mg daily dosing was tapered from 40 mg down to 20 mg, then 10 mg, then 5 mg, and then ultimately prescription was stopped on 01/12/2020. As this represents a roughly 10-week period of taking oral steroids, patient warranted administration of bisphosphonate. Alendronate 70 mg weekly was started at a prior appointment. In addition, a DEXA scan was also previously ordered and patient scheduled to have this done in 2 weeksPatient's last colonoscopy was on 04/20/[address] Castillo of general surgery. Impression red "mushy stool in anal orifice found on digital rectal exam. Diverticulosis in the sigmoid colon. Stool in the proximal ascending colon, in the mid ascending colon and in the cecum, the examination was otherwise unremarkable." Patient was 64yo at time of that last scope and conversation will be necessary at follow-up in 10 years time when she is 74 as to whether or not a repeat screening colonoscopy will be warranted; since she has multiple medical issues and will be at the fringe age range for screening.Patient is a former smoker having smoked for total 40 years and quitting in 2010. Therefore, low-dose lung CT is warranted on a yearly basis. She received her last screening CT only 7 months ago (was read as lung RADS category 2 with no change from prior exam, no new abnormal nodules, opacities, or masses), so we will order a repeat study upon follow-up when it is closer to the 1 year interval.Hepatitis C screen was unremarkable in November 2019. We will obtain an HIV screen at follow-up appointment as this has not been done per prior records.Please see asplenia assessment section for update on immunizations related to her postsplenectomy status. Hypertension, unspecified type She is cu rrently on 25 mg half a tablet daily of metoprolol succinate (longer-acting metoprolol) and 80 mg of valsartan. As stated in HPI, patient has recent positive orthostatic blood pressures at outp atient appointment and has had lightheadedness. Her pressures are well controlled today. We had wanted to assess for diabetic nephropathy via labs from previous appointment but patient did not follow through. The plan at that time was to likely stop the beta-ronald and continue with her ARB if there were signs of nephropathy on labs; especially considering there is no clear-cut indication for patient to be on a beta-ronald. Microalbumin was ordered again today but due to her positive review systems with lightheadedness, controlled blood pressure on presentation today, we collaboratively decided to stop the metoprolol and continue only with her valsartan. 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 Please refer to diabetes assessment section for more details. Asplenia Status post splenect eloisa 2007 due to IgG positive autoimmune hemolytic anemia. The splenectomy was done in [facility].Received Pneumovax 23 in spring 2019 and had previously received Prevnar 13 in May 2019.Received second meningococcal B vaccination in September 2019 (first dose given in May 2019).Receive Haemophilus influenza B vaccination on 11/04/2019.With all these current vaccines over the past year since establishing care with us, patient is now approximately 4 and half years away from her neck set of vaccines. Screening for osteoporosis As discussed in preventative health assessment section, patient received 10 weeks of oral steroids for her autoimmune hemolytic anemia and was subsequently started on 70 mg weekly of alendronate. A DEXA scan has previously been ordered and she is scheduled to get the study done in 2 weeks time. Gastroesophageal reflux disease, esophagitis presence not sp ecified Patient had previously been on omeprazole 20 mg daily. PPI medications have shown to be deleterious in the setting of chronic kidney disease and as such we have stopped her omeprazole after weaning to every other day administration and now we will switch to sole treatment in the form of famotidine. Warm autoimmune hemolytic anemia Patient is status post splenectomy in 2007 that was done in [place]. She currently follows with Dr. Matias at the [facility] for cancer care for hematology outpatient visits. She was given a 4-week's worth of rituximab last summer and subsequently started on 10 weeks of oral steroids (prednisone) that was subsequently tapered. The rituximab and steroids were started in the setting of worsening anemia after undergoing hip replacement in winter 2019. Depression, unspecified depression type She is currently on both Wellbutrin and 10 mg of Lexapro daily. As we continue to follow patient's chronic kidney disease and labs, consideration will be given to switching to Wellbutrin only for monotherapy as SSRIs have been known to worsen CKD. Treatment Notes Test Name Order Date MICROALBUMIN RANDOM 2020-06-22 FREE T4 & TSH PANEL 2020-06-22 HEMOGLOBIN A1c 2020-06-22 LIPID PANEL (CARDIAC RISK) 2020-06-22 Next Appt Details 1MO Reason:lab/dm f/u Provider Name:Vince Garrett, 2020-12-04 7 09:00:00 AM, [address] [facility], , [place], [address], Follow Up:1MOlab/dm f/u Insurance Providers Payer Name Payer Address Payer Phone Insured Name Patient Relati onship to Insured Coverage Start Date Coverage End Date NENAA VARUN [address] [address] [facility] [id number] ELI RETANA MEDICAID [email or web address] [address] [facility] [id number] ELI RETANA
--- OUTSIDE RECORDS SUMMARY | 2021-03-12 10:19 | CCD ---
Author Author [facility] Organization [facility] Address Unknown Phone Unavailable Support Name Relationship Address Phone MARIO FATOU Next Of Kin Unknown MARY ANN GARZA Next Of Kin Unknown Unavailable REWIS, FOR ) ANTONIO([place] [address] RE Next Of Kin Unknown Unavailable RETIRED Next Of Kin Unknown Unavailable ANTONIO [place] [address] Raz Maldonado MD Next Of Kin [address] [place] [address] Loraine Meyers Next Of Kin [address] [place] [address] Gricelda Castillo Next Of Kin [address] [place] [address] Jose Sullivan Next Of Kin [address] [place] [address] Caity Yepez Next Of Kin [address] [place] [address] "" Next Of Kin [address] [place] [address] [place] [place] [address] DISABLED Next Of Kin Unknown MARY ANN ALAMO Next Of Kin [address] [place] [address] ARJNI FRANCOIS Next Of Kin [address] [place] [address] UN Next Of Kin Unknown Unavailable EMMA SANCHEZ Next Of Kin [address] [address] REWIS, FOR ) ANTONIO([place] [address] Unavailable Holly ALAMO E[address] [place] [address] Unavailable Care Team Providers Care Carpet Cleaning Technician Name Role Phone NO, PCP Unavailable Unavailable TEODORACHAN MD Unavailable Unavailable TEODORA, CHAN MALDONADO Unavailable Unavailable TEODORA, CHAN MALDONADO Unavailable Unavailable TEODORA, CHAN MALDONADO Unavailable Unavailable TEODORA, CHAN MALDONADO Unavailable Unavailable TEODORA, CHAN MALDONADO Unavailable Unavailable TEODORA, CHAN MALDONADO Unavailable Unavailable TEODORA, CHAN MALDONADO Unavailable Unavailable TEODORA, CHAN MALDONADO Unavailable Unavailable TEODORA, CHAN MALDONADO Unavailable Unavailable TEODORA, CHAN MALDONADO Unavailable Unavailable TEODORA, CHAN MALDONADO Unavailable Unavailable TEODORA, CHAN MALDONADO Unavailable Unavailable TEODORA, CHAN MALDONADO Unavailable Unavailable TEODORA, CHNA MALDONADO Unavailable Unavailable TEODORA, CHAN MALDONADO Unavailable Unavailable TEODORA, CHAN MALDONADO Unavailable Unavailable TEODORA, CHAN MALDONADO Unavailable Unavailable TEODORA, CHAN MALDONADO Unavailable Unavailable TEODORA, CHAN MALDONADO Unavailable Unavailable TEODORA, CHAN MALDONADO Unavailable Unavailable TEODORA, CHAN MALDONADO Unavailable Unavailable TEODORA, CHAN MALDONADO Unavailable Unavailable TEODORA, CHAN MALDONDAO Unavailable Unavailable TEODORA, CHAN MALDONADO Unavailable Unavailable TEODORA, CHAN MALDONADO Unavailable Unavailable TEODORA, CHAN MALDONADO Unavailable Unavailable TEODORA, CHAN MALDONADO Unavailable Unavailable TEODORA, CHAN MALDONADO Unavailable Unavailable TEODORA, CHAN MALDONADO Unavailable Unavailable TEODORA, CHAN MALDONADO Unavailable Unavailable TEODORA, CHAN MALDONADO Unavailable Unavailable TEODORA, CHAN MALDONADO Unavailable Unavailable TEODORA, CHAN MALDONADO Unavailable Unavailable TEODORA, CHAN MALDONADO Unavailable Unavailable TEODORA, CHAN MALDONADO Unavailable Unavailable TEODORA, CHAN MALDONADO Unavailable Unavailable TEODORA, CHAN MALDONADO Unavailable Unavailable TEODORA, CHAN MALDONADO Unavailable Unavailable TEODORA, CHAN MALDONADO Unavailable Unavailable TEODORA, CHAN MALDONADO Unavailable Unavailable TEODORA, CHAN MALDONADO Unavailable Unavailable TEODORA, CHAN MALDONADO Unavailable Unavailable TEODORA, CHAN MALDONADO Unavailable Unavailable TEODORA, CHAN MALDONADO Unavailable Unavailable TEODORA, CHAN MALDONADO Unavailable Unavailable TEODORA, CHAN MALDONADO Unavailable Unavailable TEODORA, CHAN MALDONADO Unavailable Unavailable TEODORA, CHAN MALDONADO Unavailable Unavailable TEODORA, CHAN MALDONADO Unavailable Unavailable TEODORA, CHAN MALDONADO Unavailable Unavailable TEODORA, CHAN MALDONADO Unavailable Unavailable TEODORA, CHAN MALDONADO Unavailable Unavailable TEODORA, CHAN MALDONADO Unavailable Unavailable TEODORA, CHAN MALDONADO Unavailable Unavailable Norma Asher MD Unavailable Unavailable Norma Asher MD Unavailable Unavailable Norma Asher MD Unavailable Unavailable Norma Asher MD Unavailable Unavailable Norma Asher MD Unavailable Unavailable Norma Asher MD Unavailable Unavailable Norma Asher MD Unavailable Unavailable Norma Asher MD Unavailable Unavailable Norma Asher MD Unavailable Unavailable Norma Asher MD Unavailable Unavailable Norma Asher MD Unavailable Unavailable Norma Asher MD Unavailable Unavailable Norma Asher MD Unavailable Unavailable Norma Asher MD Unavailable Unavailable Norma Asher MD Unavailable Unavailable Norma Asher MD Unavailable Unavailable Norma Asher MD Unavailable Unavailable LbNorma lemus MD Unavailable Unavailable Norma Asher MD Unavailable Unavailable LbNorma lemus MD Unavailable Unavailable Norma Asher MD Unavailable Unavailable Norma Asher MD Unavailable Unavailable Norma Asher MD Unavailable Unavailable Norma Asher MD Unavailable Unavailable LbNorma lemus MD Unavailable Unavailable Norma Asher MD Unavailable Unavailable Norma Asher MD Unavailable Unavailable Norma Asher MD Unavailable Unavailable Norma Asher MD Unavailable Unavailable Norma Asher MD Unavailable Unavailable Norma Asher MD Unavailable Unavailable Norma Asher MD Unavailable Unavailable Norma Asher MD Unavailable Unavailable Norma Asher MD Unavailable Unavailable Norma Asher MD Unavailable Unavailable DRAZEK, I JIGAR PA Unavailable [...] Unavailable DRAZEK, I JIGAR PA Unavailable Unavailable Re-disclosure Warning The records that [...] is protected by Article 27-F of the [facility] Public Health law. If you continue you may have access to information: Regarding HIV / AIDS; Provided by facilities licensed or operated by the [facility] Office of Mental Health; or Provided by the [facility] Office for People With Developmental Disabilities. If such information is present, then the following [facility] mandated warning applies: This information has been [...] law may result in a fine or mcc sentence or both. A general authorization for the release of medical or other information is NOT sufficient authorization for further disc losure. Allergies and Adverse Reactions Type Description Substance Reaction Status Data Source(s ) Propensity to adverse reactions Morphine Sulfate Morphine Confusion Active eCW1 ([facility]) No Known Environmental Allergies No Known Environmental [facility] No Known Food Allergies No Known Food Allergies [facility] Propensity to adverse reactions OXYCODONE HCL-ACETAMINOPHEN OXYCODONE HCL-ACETAMINOPHEN UNKNOWN [facility] Family History Family Member Name Family Member Gender Family Member Status Date o f Status Description Data Source(s) Unknown Female Problem MEDENT ([facility]) Unknown Female Problem MEDENT ([facility]) Encounters Encounter Providers Location Date Indications Data Source(s ) Unknown [address] [facility] [address] 03/06/2021 12:00:00 AM EDT eCW1 ([facility]) [place] [address] [facility] [address] 02/13/2021 12:00:00 AM EDT eCW1 ([facility]) [place] [address] [facility] [address] 02/05/2021 12:00:00 AM EDT eCW1 ([facility]) [place] [address] [facility] [address] 01/31/2021 12:00:00 AM EDT eCW1 ([facility]) OFFICE OUTPATIENT VISIT 15 MINUTES Attender: JIGAR GATICA Phys ical Therapy 12/14/2020 02:00:00 PM EDT MEDENT ([facility]) Unknown [address] [facility] [address] 12/11/2020 12:00:00 AM EDT eCW1 ([facility]) Outpatient [address] [facility] [address] 11/28/2020 12:00:00 AM EDT eCW1 ([facility]) Unknown [address] [facility] [address] 11/24/2020 12:00:00 AM EDT eCW1 ([facility]) [place] [address] [facility] [address] 11/24/2020 12:00:00 AM EDT eCW1 ([facility]) [place] [address] [facility] [address] 11/24/2020 12:00:00 AM EDT eCW1 ([facility]) Unknown [address] [facility] [address] 11/24/2020 12:00:00 AM EDT eCW1 ([facility]) Unknown [address] [facility] [address] 11/24/2020 12:00:00 AM EDT eCW1 ([facility]) Unknown [address] [facility] [address] 11/24/2020 12:00:00 AM EDT eCW1 ([facility]) Unknown [address] [facility] [address] 11/23/2020 12:00:00 AM EDT eCW1 ([facility]) Unknown [address] [facility] [address] 11/23/2020 12:00:00 AM EDT eCW1 ([facility]) Unknown [address] [facility] [address] 11/22/2020 12:00:00 AM EDT eCW1 ([facility]) Unknown [address] [facility] [address] 11/22/2020 12:00:00 AM EDT eCW1 ([facility]) Unknown [address] [facility] [address] 11/21/2020 12:00:00 AM EDT eCW1 ([facility]) Unknown [address] [facility] [address] 11/20/2020 12:00:00 AM EDT eCW1 ([facility]) Unknown [address] [facility] [address] 11/17/2020 12:00:00 AM EDT eCW1 ([facility]) Unknown [address] [facility] [address] 11/15/2020 12:00:00 AM EDT eCW1 ([facility]) Unknown [address] [facility] [address] 11/14/2020 12:00:00 AM EDT eCW1 ([facility]) Unknown [address] [facility] [address] 11/14/2020 12:00:00 AM EDT eCW1 ([facility]) Unknown [address] [facility] [address] 11/13/2020 12:00:00 AM EDT eCW1 ([facility]) Outpatient [address] [facility] [address] 11/09/2020 12:00:00 AM EDT eCW1 ([facility]) Unknown [address] [facility] [address] 10/27/2020 12:00:00 AM EDT eCW1 ([facility]) Outpatient [address] [facility] [address] 10/05/2020 12:00:00 AM EDT eCW1 ([facility]) Outpatient Attender: Norma Asher MDConsultant: PCP NO 07/12/2020 07:15:00 AM EST - 07/12/2020 09:08:00 AM EST [facility] Patient discharged. Unknown [address] [facility] [address] 06/26/2020 12:00:00 AM EST eCW1 ([facility]) Outpatient [address] [facility] [address] 06/22/2020 12:00:00 AM EST eCW1 ([facility]) Unknown [address] [facility] [address] 06/06/2020 12:00:00 AM EST eCW1 ([facility]) Unknown [address] [facility] [address] 06/06/2020 12:00:00 AM EST eCW1 ([facility]) [place] [address] [facility] [address] 05/26/2020 12:00:00 AM EST eCW1 ([facility]) Outpatient Attender: Norma Asher MDConsultant: PCP NO 05/17/2020 09:00:00 AM EST - 05/17/2020 12:25:00 PM EST [facility] Patient discharged. Unknown [address] [facility] [address] 05/15/2020 12:00:00 AM EST eCW1 ([facility]) Outpatient Attender: Norma Asher MDConsultant: PCP NO 05/10/2020 08:18:02 AM EST - 05/10/2020 09:40:00 AM EST [facility] Patient discharged. Outpatient Attender: CHAN [email or web address] 0 12:00:00 AM EDT - 02/04/2020 11:56:[address] [facility] Immunizations Vaccine Date Status Description Data Source(s) Moderna #2 dose COVID-19(given elsewhere) SARSCOV2 VAC 100MCG/0.5ML IM 08/16/2020 01:15:00 PM EDT completed eCW1 ([facility]) Moderna #2 dose COVID-19(given elsewhere) SARSCOV2 VAC 100MCG/0.5ML IM 08/16/2020 01:15:00 PM EDT completed eCW1 ([facility]) Moderna #2 dose COVID-19(given elsewhere) SARSCOV2 VAC 100MCG/0.5ML IM 08/16/2020 01:15:00 PM EDT completed eCW1 ([facility]) Moderna #2 dose COVID-19(given elsewhere) SARSCOV2 VAC 100MCG/0.5ML IM 08/16/2020 01:15:00 PM EDT completed eCW1 ([facility]) Moderna #2 dose COVID-19(given elsewhere) SARSCOV2 VAC 100MCG/0.5ML IM 08/16/2020 01:15:00 PM EDT completed eCW1 ([facility]) Moderna #2 dose COVID-19(given elsewhere) SARSCOV2 VAC 100MCG/0.5ML IM 08/16/2020 01:15:00 PM EDT completed eCW1 ([facility]) Moderna #2 dose COVID-19(given elsewhere) SARSCOV2 VAC 100MCG/0.5ML IM 08/16/2020 01:15:00 PM EDT completed eCW1 ([facility]) Moderna #2 dose COVID-19(given elsewhere) SARSCOV2 VAC 100MCG/0.5ML IM 08/16/2020 01:15:00 PM EDT completed eCW1 ([facility]) Moderna #2 dose COVID-19(given elsewhere) SARSCOV2 VAC 100MCG/0.5ML IM 08/16/2020 01:15:00 PM EDT completed eCW1 ([facility]) Moderna #2 dose COVID-19(given elsewhere) SARSCOV2 VAC 100MCG/0.5ML IM 08/16/2020 01:15:00 PM EDT completed eCW1 ([facility]) Moderna #2 dose COVID-19(given elsewhere) SARSCOV2 VAC 100MCG/0.5ML IM 08/16/2020 01:15:00 PM EDT completed eCW1 ([facility]) Moderna #2 dose COVID-19(given elsewhere) SARSCOV2 VAC 100MCG/0.5ML IM 08/16/2020 01:15:00 PM EDT completed eCW1 ([facility]) Moderna #2 dose COVID-19(given elsewhere) SARSCOV2 VAC 100MCG/0.5ML IM 08/16/2020 01:15:00 PM EDT completed eCW1 ([facility]) Moderna #2 dose COVID-19(given elsewhere) SARSCOV2 VAC 100MCG/0.5ML IM 08/16/2020 01:15:00 PM EDT completed eCW1 ([facility]) Moderna #2 dose COVID-19(given elsewhere) SARSCOV2 VAC 100MCG/0.5ML IM 08/16/2020 01:15:00 PM EDT completed eCW1 ([facility]) Moderna #2 dose COVID-19(given elsewhere) SARSCOV2 VAC 100MCG/0.5ML IM 08/16/2020 01:15:00 PM EDT completed eCW1 ([facility]) Moderna #2 dose COVID-19(given elsewhere) SARSCOV2 VAC 100MCG/0.5ML IM 08/16/2020 01:15:00 PM EDT completed eCW1 ([facility]) Moderna #2 dose COVID-19(given elsewhere) SARSCOV2 VAC 100MCG/0.5ML IM 08/16/2020 01:15:00 PM EDT completed eCW1 ([facility]) Moderna #2 dose COVID-19(given elsewhere) SARSCOV2 VAC 100MCG/0.5ML IM 08/16/2020 01:15:00 PM EDT completed eCW1 ([facility]) Moderna #2 dose COVID-19(given elsewhere) SARSCOV2 VAC 100MCG/0.5ML IM 08/16/2020 01:15:00 PM EDT completed eCW1 ([facility]) Moderna #2 dose COVID-19(given elsewhere) SARSCOV2 VAC 100MCG/0.5ML IM 08/16/2020 01:15:00 PM EDT completed eCW1 ([facility]) Moderna #2 dose COVID-19(given elsewhere) SARSCOV2 VAC 100MCG/0.5ML IM 08/16/2020 01:15:00 PM EDT completed eCW1 ([facility]) Moderna #2 dose COVID-19 (given elsewhere) SARSCOV2 VA C 100MCG/0.5ML IM 08/16/2020 01:15:00 PM EDT completed eCW1 ([facility]) Moderna #2 dose COVID-19 (given elsewhere) SARSCOV2 VA C 100MCG/0.5ML IM 08/16/2020 01:15:00 PM EDT completed eCW1 ([facility]) Moderna #2 dose COVID-19 (given elsewhere) SARSCOV2 VA C 100MCG/0.5ML IM 08/16/2020 01:15:00 PM EDT completed eCW1 ([facility]) Moderna #2 dose COVID-19(given elsewhere) SARSCOV2 VAC 100MCG/0.5ML IM 08/16/2020 01:15:00 PM EDT completed eCW1 ([facility]) COVID-19 VACCINE Moderna 08/16/2020 12:00:00 AM EDT completed [facility] Vaccine Series Complete: YESThis Data wa s Submitted to [facility] Via VideoStepSIIS. COVID-19 VACCINE Moderna 07/19/2020 12:00:00 AM EDT completed [facility] Vaccine Series Complete: NOThis Data was Submitted to [facility] Via MobileMD. Moderna #1 dose COVID-19(given elsewhere) SARSCOV2 VAC 100MCG/0.5ML IM 07/15/2020 01:14:00 PM EST completed eCW1 ([facility]) Moderna #1 dose COVID-19(given elsewhere) SARSCOV2 VAC 100MCG/0.5ML IM 07/15/2020 01:14:00 PM EST completed eCW1 ([facility]) Moderna #1 dose COVID-19(given elsewhere) SARSCOV2 VAC 100MCG/0.5ML IM 07/15/2020 01:14:00 PM EST completed eCW1 ([facility]) Moderna #1 dose COVID-19(given elsewhere) SARSCOV2 VAC 100MCG/0.5ML IM 07/15/2020 01:14:00 PM EST completed eCW1 ([facility]) Moderna #1 dose COVID-19(given elsewhere) SARSCOV2 VAC 100MCG/0.5ML IM 07/15/2020 01:14:00 PM EST completed eCW1 ([facility]) Moderna #1 dose COVID-19(given elsewhere) SARSCOV2 VAC 100MCG/0.5ML IM 07/15/2020 01:14:00 PM EST completed eCW1 ([facility]) Moderna #1 dose COVID-19(given elsewhere) SARSCOV2 VAC 100MCG/0.5ML IM 07/15/2020 01:14:00 PM EST completed eCW1 ([facility]) Moderna #1 dose COVID-19(given elsewhere) SARSCOV2 VAC 100MCG/0.5ML IM 07/15/2020 01:14:00 PM EST completed eCW1 ([facility]) Moderna #1 dose COVID-19(given elsewhere) SARSCOV2 VAC 100MCG/0.5ML IM 07/15/2020 01:14:00 PM EST completed eCW1 ([facility]) Moderna #1 dose COVID-19(given elsewhere) SARSCOV2 VAC 100MCG/0.5ML IM 07/15/2020 01:14:00 PM EST completed eCW1 ([facility]) Moderna #1 dose COVID-19(given elsewhere) SARSCOV2 VAC 100MCG/0.5ML IM 07/15/2020 01:14:00 PM EST completed eCW1 ([facility]) Moderna #1 dose COVID-19(given elsewhere) SARSCOV2 VAC 100MCG/0.5ML IM 07/15/2020 01:14:00 PM EST completed eCW1 ([facility]) Moderna #1 dose COVID-19(given elsewhere) SARSCOV2 VAC 100MCG/0.5ML IM 07/15/2020 01:14:00 PM EST completed eCW1 ([facility]) Moderna #1 dose COVID-19(given elsewhere) SARSCOV2 VAC 100MCG/0.5ML IM 07/15/2020 01:14:00 PM EST completed eCW1 ([facility]) Moderna #1 dose COVID-19(given elsewhere) SARSCOV2 VAC 100MCG/0.5ML IM 07/15/2020 01:14:00 PM EST completed eCW1 ([facility]) Moderna #1 dose COVID-19(given elsewhere) SARSCOV2 VAC 100MCG/0.5ML IM 07/15/2020 01:14:00 PM EST completed eCW1 ([facility]) Moderna #1 dose COVID-19(given elsewhere) SARSCOV2 VAC 100MCG/0.5ML IM 07/15/2020 01:14:00 PM EST completed eCW1 ([facility]) Moderna #1 dose COVID-19(given elsewhere) SARSCOV2 VAC 100MCG/0.5ML IM 07/15/2020 01:14:00 PM EST completed eCW1 ([facility]) Moderna #1 dose COVID-19(given elsewhere) SARSCOV2 VAC 100MCG/0.5ML IM 07/15/2020 01:14:00 PM EST completed eCW1 ([facility]) Moderna #1 dose COVID-19(given elsewhere) SARSCOV2 VAC 100MCG/0.5ML IM 07/15/2020 01:14:00 PM EST completed eCW1 ([facility]) Moderna #1 dose COVID-19(given elsewhere) SARSCOV2 VAC 100MCG/0.5ML IM 07/15/2020 01:14:00 PM EST completed eCW1 ([facility]) Moderna #1 dose COVID-19(given elsewhere) SARSCOV2 VAC 100MCG/0.5ML IM 07/15/2020 01:14:00 PM EST completed eCW1 ([facility]) Moderna #1 dose COVID-19 (given elsewhere) SARSCOV2 VA C 100MCG/0.5ML IM 07/15/2020 01:14:00 PM EST completed eCW1 ([facility]) Moderna #1 dose COVID-19 (given elsewhere) SARSCOV2 VA C 100MCG/0.5ML IM 07/15/2020 01:14:00 PM EST completed eCW1 ([facility]) Moderna #1 dose COVID-19 (given elsewhere) SARSCOV2 VA C 100MCG/0.5ML IM 07/15/2020 01:14:00 PM EST completed eCW1 ([facility]) Moderna #1 dose COVID-19(given elsewhere) SARSCOV2 VAC 100MCG/0.5ML IM 07/15/2020 01:14:00 PM EST completed eCW1 ([facility]) influenza, recombinant, quadrIvalent,injectable, prese rvative free 01/27/2020 01:54:00 PM EDT completed eCW1 ([facility]) influenza, recombinant, quadrIvalent,injectable, prese rvative free 01/27/2020 01:54:00 PM EDT completed eCW1 ([facility]) influenza, recombinant, quadrIvalent,injectable, prese rvative free 01/27/2020 01:54:00 PM EDT completed eCW1 ([facility]) influenza, recombinant, quadrIvalent,injectable, prese rvative free 01/27/2020 01:54:00 PM EDT completed eCW1 ([facility]) influenza, recombinant, quadrIvalent,injectable, prese rvative free 01/27/2020 01:54:00 PM EDT completed eCW1 ([facility]) influenza, recombinant, quadrIvalent,injectable, prese rvative free 01/27/2020 01:54:00 PM EDT completed eCW1 ([facility]) influenza, recombinant, quadrIvalent,injectable, prese rvative free 01/27/2020 01:54:00 PM EDT completed eCW1 ([facility]) influenza, recombinant, quadrIvalent,injectable, prese rvative free 01/27/2020 01:54:00 PM EDT completed eCW1 ([facility]) influenza, recombinant, quadrIvalent,injectable, prese rvative free 01/27/2020 01:54:00 PM EDT completed eCW1 ([facility]) influenza, recombinant, quadrIvalent,injectable, prese rvative free 01/27/2020 01:54:00 PM EDT completed eCW1 ([facility]) influenza, recombinant, quadrIvalent,injectable, prese rvative free 01/27/2020 01:54:00 PM EDT completed eCW1 ([facility]) influenza, recombinant, quadrIvalent,injectable, prese rvative free 01/27/2020 01:54:00 PM EDT completed eCW1 ([facility]) influenza, recombinant, quadrIvalent,injectable, prese rvative free 01/27/2020 01:54:00 PM EDT completed eCW1 ([facility]) influenza, recombinant, quadrIvalent,injectable, prese rvative free 01/27/2020 01:54:00 PM EDT completed eCW1 ([facility]) influenza, recombinant, quadrIvalent,injectable, prese rvative free 01/27/2020 01:54:00 PM EDT completed eCW1 ([facility]) influenza, recombinant, quadrIvalent,injectable, prese rvative free 01/27/2020 01:54:00 PM EDT completed eCW1 ([facility]) influenza, recombinant, quadrIvalent,injectable, prese rvative free 01/27/2020 01:54:00 PM EDT completed eCW1 ([facility]) influenza, recombinant, quadrIvalent,injectable, prese rvative free 01/27/2020 01:54:00 PM EDT completed eCW1 ([facility]) influenza, recombinant, quadrIvalent,injectable, prese rvative free 01/27/2020 01:54:00 PM EDT completed eCW1 ([facility]) influenza, recombinant, quadrIvalent,injectable, prese rvative free 01/27/2020 01:54:00 PM EDT completed eCW1 ([facility]) influenza, recombinant, quadrIvalent,injectable, prese rvative free 01/27/2020 01:54:00 PM EDT completed eCW1 ([facility]) influenza, recombinant, quadrIvalent,injectable, prese rvative free 01/27/2020 01:54:00 PM EDT completed eCW1 ([facility]) influenza, recombinant, quadrIvalent,injectable, prese rvative free 01/27/2020 01:54:00 PM EDT completed eCW1 ([facility]) influenza, recombinant, quadrIvalent,injectable, prese rvative free 01/27/2020 01:54:00 PM EDT completed eCW1 ([facility]) influenza, recombinant, quadrIvalent,injectable, prese rvative free 01/27/2020 01:54:00 PM EDT completed eCW1 ([facility]) influenza, recombinant, quadrIvalent,injectable, prese rvative free 01/27/2020 01:54:00 PM EDT completed eCW1 ([facility]) influenza, recombinant, quadrIvalent,injectable, prese rvative free 01/27/2020 01:54:00 PM EDT completed eCW1 ([facility]) Medications Medication Brand Name Start Date Product Form Dose Route Admi nistrative Instructions Pharmacy Instructions Status Indications Reaction Description Data Source(s) 1,000 mcg 03/07/2021 12:00:00 AM EDT tablet 30 TAKE ONE TABLET BY MOUTH EVERY DAY TAKE ONE TABLET BY MOUTH EVERY DAY SOLD: 03/09/2021 [facility] Brimonidine tartrate 2 MG/ML / Timolol 5 MG/ML Ophthalmic Solution [Combigan] 0.2-0.5 % BRIMONIDINE TARTRATE/TIMOLOL 02/16/2021 12:00:00 AM EDT drops 5 INSTILL 1 DROP IN EACH EYE TWO TIMES A DAY DIRECTED INSTILL 1 DROP IN EACH EYE TWO TIMES A DAY DIRECTED SOLD: 02/16/2021 [facility] 200 mcg 02/15/2021 12:00:00 AM EDT tablet 30 TAKE 1 TABLET BY MOUTH DAILY TAKE 1 TABLET BY MOUTH DAILY SOLD: 02/16/2021 [facility] 80 mg 02/14/2021 12:00:00 AM EDT tablet 30 TAKE ONE TABLET BY MOUTH EVERY DAY TAKE ONE TABLET BY MOUTH EVERY DAY SOLD: 02/16/2021 [facility] 25 mcg 02/14/2021 12:00:00 AM EDT tablet 15 TAKE ONE-HALF TABLET BY MOUTH EVERY MORNING ON AN EMPTY STOMACH TAKE ONE-HALF TABLET BY MOUTH EVERY MORN ING ON AN EMPTY STOMACH SOLD: 02/16/2021 [facility] ALCOHOL ANTISEPTIC PADS 02/06/2021 12:00:00 AM EDT pads, med icated 100 USE DIRECTED USE DIRECTED SOLD: 02/07/2021 [facility] Cyanocobalamin 1000 MCG UNK 02/02/2021 12:00:00 AM EDT 1.0 { tablet} active Cyanocobalamin 1000 MCG eCW1 ([facility]) Acetaminophen 325 MG Oral Tablet Acetaminophen 325 MG 2020 12:00:00 AM EDT 1.0 {tablet_as_needed} active A cetaminophen 325 MG eCW1 ([facility]) meloxicam 7.5 MG Oral Tablet Meloxicam 7.5 MG Meloxicam 7.5 MG 02/02/2021 12:00:00 AM EDT 1.0 {tablet} active Me loxicam 7.5 MG eCW1 ([facility]) Cyanocobalamin 1000 MCG UNK 02/02/2021 12:00:00 AM EDT 1.0 { tablet} active Cyanocobalamin 1000 MCG eCW1 ([facility]) 12 HR Acetazolamide 500 MG Extended Rele ase Oral Capsule acetaZOLAMIDE ER 500 MG acetaZOLAMIDE ER 500 MG 02/02/2021 12:00:00 AM EDT 1.0 {capsule} active acetaZOLAMIDE ER 500 MG eCW1 ([facility]) BLOOD-GLUCOSE METER 02/02/2021 12:00:00 AM EDT mis 1 USE DIRECTED USE DIRECTED SOLD: 02/04/2021 [facility] meloxicam 7.5 MG Oral Tablet Meloxicam 7.5 MG Meloxicam 7.5 MG 02/02/2021 12:00:00 AM EDT 1.0 {tablet} active Me loxicam 7.5 MG eCW1 ([facility]) Polymyxin B 22764 UNT/ML / Trimethoprim 1 MG/ML Ophthalmic Solution Polymyxin B- Trimethoprim 26529-8.1 UNIT/ML Polymyxin B-Trimethoprim 81522-0.1 UNIT/ML 02/02/2021 12:00:00 AM EDT active Polymyxin B-Trimethoprim 92776- 0.1 UNIT/ML eCW1 ([facility]) Combivent Respimat 20-100 mcg/act UNK 02/02/2021 12:00:00 AM EDT 1.0 {puff} active Combivent Respimat 20-100 mcg/act eCW1 ([facility]) Cyanocobalamin 1000 MCG UNK 02/02/2021 12:00:00 AM EDT 1.0 { tablet} active Cyanocobalamin 1000 MCG eCW1 ([facility]) Combivent Respimat 20-100 mcg/act UNK 02/02/2021 12:00:00 AM EDT 1.0 {puff} active Combivent Respimat 20-100 mcg/act eCW1 ([facility]) Acetaminophen 325 MG Oral Tablet Acetaminophen 325 MG 2020 12:00:00 AM EDT 1.0 {tablet_as_needed} active A cetaminophen 325 MG eCW1 ([facility]) 12 HR Acetazolamide 500 MG Extended Rele ase Oral Capsule acetaZOLAMIDE ER 500 MG acetaZOLAMIDE ER 500 MG 02/02/2021 12:00:00 AM EDT 1.0 {capsule} active acetaZOLAMIDE ER 500 MG eCW1 ([facility]) 12 HR Acetazolamide 500 MG Extended Rele ase Oral Capsule acetaZOLAMIDE ER 500 MG acetaZOLAMIDE ER 500 MG 02/02/2021 12:00:00 AM EDT 1.0 {capsule} active acetaZOLAMIDE ER 500 MG eCW1 ([facility]) 12 HR Acetazolamide 500 MG Extended Rele ase Oral Capsule acetaZOLAMIDE ER 500 MG acetaZOLAMIDE ER 500 MG 02/02/2021 12:00:00 AM EDT 1.0 {capsule} active acetaZOLAMIDE ER 500 MG eCW1 ([facility]) meloxicam 7.5 MG Oral Tablet Meloxicam 7.5 MG Meloxicam 7.5 MG 02/02/2021 12:00:00 AM EDT 1.0 {tablet} active Me loxicam 7.5 MG eCW1 ([facility]) Polymyxin B 56066 UNT/ML / Trimethoprim 1 MG/ML Ophthalmic Solution Polymyxin B- Trimethoprim 38877-5.1 UNIT/ML Polymyxin B-Trimethoprim 86651-0.1 UNIT/ML 02/02/2021 12:00:00 AM EDT active Polymyxin B-Trimethoprim 03019- 0.1 UNIT/ML eCW1 ([facility]) Polymyxin B 23578 UNT/ML / Trimethoprim 1 MG/ML Ophthalmic Solution 10,000 unit- 1 mg/mL POLYMYXIN B SULF/TRIMETHOPRIM 02/02/2021 12:00:00 AM EDT drops 1 0 INSTILL 1 DROP IN THE RIGHT EYE SIX TIMES DAILY INSTILL 1 DROP IN THE RIGHT EYE SIX TIMES DAILY SOLD: 02/04/2021 [facility] Combivent Respimat 20-100 mcg/act UNK 02/02/2021 12:00:00 AM EDT 1.0 {puff} active Combivent Respimat 20-100 mcg/act eCW1 ([facility]) Cyanocobalamin 1000 MCG UNK 02/02/2021 12:00:00 AM EDT 1.0 { tablet} active Cyanocobalamin 1000 MCG eCW1 ([facility]) Polymyxin B 14652 UNT/ML / Trimethoprim 1 MG/ML Ophthalmic Solution Polymyxin B- Trimethoprim 28705-5.1 UNIT/ML Polymyxin B-Trimethoprim 50036-3.1 UNIT/ML 02/02/2021 12:00:00 AM EDT active Polymyxin B-Trimethoprim 21316- 0.1 UNIT/ML eCW1 ([facility]) Acetaminophen 325 MG Oral Tablet Acetaminophen 325 MG 2020 12:00:00 AM EDT 1.0 {tablet_as_needed} active A cetaminophen 325 MG eCW1 ([facility]) Combivent Respimat 20-100 mcg/act UNK 02/02/2021 12:00:00 AM EDT 1.0 {puff} active Combivent Respimat 20-100 mcg/act eCW1 ([facility]) Polymyxin B 02766 UNT/ML / Trimethoprim 1 MG/ML Ophthalmic Solution Polymyxin B- Trimethoprim 81030-0.1 UNIT/ML Polymyxin B-Trimethoprim 47985-1.1 UNIT/ML 02/02/2021 12:00:00 AM EDT active Polymyxin B-Trimethoprim 64618- 0.1 UNIT/ML eCW1 ([facility]) meloxicam 7.5 MG Oral Tablet Meloxicam 7.5 MG Meloxicam 7.5 MG 02/02/2021 12:00:00 AM EDT 1.0 {tablet} active Me loxicam 7.5 MG eCW1 ([facility]) Acetaminophen 325 MG Oral Tablet Acetaminophen 325 MG 2020 12:00:00 AM EDT 1.0 {tablet_as_needed} active A cetaminophen 325 MG eCW1 ([facility]) meloxicam 7.5 MG Oral Tablet MELOXICAM 12/15/2020 12:00:00 AM EDT tabl et 30 TAKE ONE TABLET BY MOUTH EVERY DAY WITH FOOD OR MILK TAKE ONE TABLET BY MOUTH EVERY DAY WITH FOOD OR MILK SOLD: 02/04/2021 [facility] meloxicam 7.5 MG Oral Tablet MELOXICAM 12/15/2020 12:00:00 AM EDT tabl et 30 TAKE ONE TABLET BY MOUTH EVERY DAY WITH FOOD OR MILK TAKE ONE TABLET BY MOUTH EVERY DAY WITH FOOD OR MILK SOLD: 12/18/2020 [facility] meloxicam 7.5 MG Oral Tablet Meloxicam 12/14/2020 12:00:00 AM EDT ORAL active MEDENT ([facility]) 500 mg 12/09/2020 12:00:00 AM EDT capsule, extended relea se 60 TAKE ONE CAPSULE BY MOUTH TWICE A DAY TAKE ONE CAPSULE BY MOUTH TWICE A DAY SOLD: 12/11/2020 [facility] Insulin Glargine 100 UNIT/ML UNK 11/30/2020 12:00:00 AM EDT active Insulin Glargine 100 UNIT/ML eCW1 ([facility]) Insulin Glargine 100 UNIT/ML UNK 11/30/2020 12:00:00 AM EDT active Insulin Glargine 100 UNIT/ML eCW1 ([facility]) Insulin Glargine 100 UNIT/ML UNK 11/30/2020 12:00:00 AM EDT active Insulin Glargine 100 UNIT/ML eCW1 ([facility]) Insulin Glargine 100 UNIT/ML UNK 11/30/2020 12:00:00 AM EDT active Insulin Glargine 100 UNIT/ML eCW1 ([facility]) Insulin Glargine 100 UNIT/ML UNK 11/30/2020 12:00:00 AM EDT active Insulin Glargine 100 UNIT/ML eCW1 ([facility]) 3 ML Insulin Glargine 100 UNT/ML Pen Injector [Lantus] 100 unit/mL (3 mL) INSULIN GLARGINE,HUM.REC.ANLOG 11/30/2020 12:00:00 AM EDT insulin pen 15 INJECT 12 UNITS UNDER THE SKIN EVERY MORNING MAXIMUM DAILY DOSE = 12 UNITS INJECT 12 UNITS UNDER THE SKIN EVERY MORNING MAXIMUM DAILY DOSE = 12 UNITS SOLD: 11/30/2020 [facility] Insulin Glargine 100 UNIT/ML UNK 11/30/2020 12:00:00 AM EDT active Insulin Glargine 100 UNIT/ML eCW1 ([facility]) Insulin Glargine 100 UNIT/ML UNK 11/30/2020 12:00:00 AM EDT active Insulin Glargine 100 UNIT/ML eCW1 ([facility]) Nystatin 100 UNT/MG Topical Powder Nystatin 904108 UNI T/GM Nystatin 448367 UNIT/GM 11/23/2020 12:00:00 AM EDT 1.0 {application} active Nystatin 262474 UNIT/GM eCW1 ([facility]) Nystatin 100 UNT/MG Topical Powder Nystatin 134703 UNI T/GM Nystatin 379785 UNIT/GM 11/23/2020 12:00:00 AM EDT 1.0 {application} active Nystatin 087153 UNIT/GM eCW1 ([facility]) Nystatin 100 UNT/MG Topical Powder Nystatin 730250 UNI T/GM Nystatin 141374 UNIT/GM 11/23/2020 12:00:00 AM EDT 1.0 {application} active Nystatin 386188 UNIT/GM eCW1 ([facility]) Nystatin 100 UNT/MG Topical Powder Nystatin 106196 UNI T/GM Nystatin 052412 UNIT/GM 11/23/2020 12:00:00 AM EDT 1.0 {application} active Nystatin 949867 UNIT/GM eCW1 ([facility]) Nystatin 100 UNT/MG Topical Powder Nystatin 129046 UNI T/GM Nystatin 086451 UNIT/GM 11/23/2020 12:00:00 AM EDT 1.0 {application} active Nystatin 978294 UNIT/GM eCW1 ([facility]) Nystatin 100 UNT/MG Topical Powder 100,000 unit/gram [place]STAT[facility] N 11/23/2020 12:00:00 AM EDT powder 15 APPLY 2-3 TIMES PER DAY A S NEEDED FOR ITCHINESS APPLY 2-3 TIMES PER DAY NEEDED FOR ITCHINESS SOLD: 11/23/2020 [facility] 31 gauge x 5/16" 11/23/2020 12:00:00 AM EDT needle 100 USE ONE BEFORE MEALS USE ONE BEFORE MEALS SOLD: 11/23/2020 [facility] Nystatin 100 UNT/MG Topical Powder Nystatin 090719 UNI T/GM Nystatin 210884 UNIT/GM 11/23/2020 12:00:00 AM EDT 1.0 {application} active Nystatin 303158 UNIT/GM eCW1 ([facility]) Nystatin 100 UNT/MG Topical Powder Nystatin 464883 UNI T/GM Nystatin 715039 UNIT/GM 11/23/2020 12:00:00 AM EDT 1.0 {application} active Nystatin 332356 UNIT/GM eCW1 ([facility]) Nystatin 100 UNT/MG Topical Powder Nystatin 552496 UNI T/GM Nystatin 223361 UNIT/GM 11/23/2020 12:00:00 AM EDT 1.0 {application} active Nystatin 875538 UNIT/GM eCW1 ([facility]) Nystatin 100 UNT/MG Topical Powder Nystatin 332146 UNI T/GM Nystatin 990338 UNIT/GM 11/23/2020 12:00:00 AM EDT 1.0 {application} active Nystatin 714250 UNIT/GM eCW1 ([facility]) Nystatin 100 UNT/MG Topical Powder Nystatin 106163 UNI T/GM Nystatin 608514 UNIT/GM 11/23/2020 12:00:00 AM EDT 1.0 {application} active Nystatin 819606 UNIT/GM eCW1 ([facility]) Nystatin 100 UNT/MG Topical Powder Nystatin 218322 UNI T/GM Nystatin 154674 UNIT/GM 11/23/2020 12:00:00 AM EDT 1.0 {application} active Nystatin 288451 UNIT/GM eCW1 ([facility]) Nystatin 100 UNT/MG Topical Powder Nystatin 874386 UNI T/GM Nystatin 921695 UNIT/GM 11/23/2020 12:00:00 AM EDT 1.0 {application} active Nystatin 126741 UNIT/GM eCW1 ([facility]) Nystatin 100 UNT/MG Topical Powder Nystatin 052872 UNI T/GM Nystatin 437522 UNIT/GM 11/23/2020 12:00:00 AM EDT 1.0 {application} active Nystatin 447740 UNIT/GM eCW1 ([facility]) 150 mg 11/21/2020 12:00:00 AM EDT tablet 1 TAKE ONE TABLET BY MOUTH ONCE DAILY TAKE ONE TABLET BY MOUTH ONCE DAILY SOLD: 11/21/2020 [facility] 50 mg 11/21/2020 12:00:00 AM EDT tablet 45 TAKE ONE-HALF TABLET BY MOUTH AT BEDTIME NEEDED TAKE ONE-HALF TABLET BY MOUTH AT BEDTIME NEEDED LATOSHA [facility] Fluconazole 150 MG Oral Tablet Fluconazole 150 MG 11/21/2020 12:00: 00 AM EDT 1.0 {tablet} active Fluconazole 150 MG eCW1 ([facility]) Nystatin 100 UNT/MG Topical Powder Nystatin 865946 UNI T/GM Nystatin 975441 UNIT/GM 11/21/2020 12:00:00 AM EDT 1.0 {application} active Nystatin 285154 UNIT/GM eCW1 ([facility]) Nystatin 100 UNT/MG Topical Powder Nystatin 153660 UNI T/GM Nystatin 769345 UNIT/GM 11/21/2020 12:00:00 AM EDT 1.0 {application} active Nystatin 908615 UNIT/GM eCW1 ([facility]) Nystatin 100 UNT/MG Topical Powder Nystatin 939455 UNI T/GM Nystatin 644913 UNIT/GM 11/21/2020 12:00:00 AM EDT 1.0 {application} active Nystatin 095773 UNIT/GM eCW1 ([facility]) Nystatin 100 UNT/MG Topical Powder Nystatin 625299 UNI T/GM Nystatin 067272 UNIT/GM 11/21/2020 12:00:00 AM EDT 1.0 {application} active Nystatin 752632 UNIT/GM eCW1 ([facility]) Fluconazole 150 MG Oral Tablet Fluconazole 150 MG 11/21/2020 12:00: 00 AM EDT 1.0 {tablet} active Fluconazole 150 MG eCW1 ([facility]) Nystatin 100 UNT/MG Topical Powder Nystatin 074498 UNI T/GM Nystatin 592305 UNIT/GM 11/21/2020 12:00:00 AM EDT 1.0 {application} active Nystatin 980059 UNIT/GM eCW1 ([facility]) Nystatin 100 UNT/MG Topical Powder Nystatin 228467 UNI T/GM Nystatin 882958 UNIT/GM 11/21/2020 12:00:00 AM EDT 1.0 {application} active Nystatin 048025 UNIT/GM eCW1 ([facility]) Fluconazole 150 MG Oral Tablet Fluconazole 150 MG 11/21/2020 12:00: 00 AM EDT 1.0 {tablet} active Fluconazole 150 MG eCW1 ([facility]) Nystatin 100 UNT/MG Topical Powder Nystatin 926526 UNI T/GM Nystatin 503699 UNIT/GM 11/21/2020 12:00:00 AM EDT 1.0 {application} active Nystatin 952982 UNIT/GM eCW1 ([facility]) Fluconazole 150 MG Oral Tablet Fluconazole 150 MG 11/21/2020 12:00: 00 AM EDT 1.0 {tablet} active Fluconazole 150 MG eCW1 ([facility]) Fluconazole 150 MG Oral Tablet Fluconazole 150 MG 11/21/2020 12:00: 00 AM EDT 1.0 {tablet} active Fluconazole 150 MG eCW1 ([facility]) Fluconazole 150 MG Oral Tablet Fluconazole 150 MG 11/21/2020 12:00: 00 AM EDT 1.0 {tablet} active Fluconazole 150 MG eCW1 ([facility]) Nystatin 100 UNT/MG Topical Powder Nystatin 562953 UNI T/GM Nystatin 633354 UNIT/GM 11/21/2020 12:00:00 AM EDT 1.0 {application} active Nystatin 623169 UNIT/GM eCW1 ([facility]) Fluconazole 150 MG Oral Tablet Fluconazole 150 MG 11/21/2020 12:00: 00 AM EDT 1.0 {tablet} active Fluconazole 150 MG eCW1 ([facility]) Fluconazole 150 MG Oral Tablet Fluconazole 150 MG 11/21/2020 12:00: 00 AM EDT 1.0 {tablet} active Fluconazole 150 MG eCW1 ([facility]) BLOOD-GLUCOSE METER 11/21/2020 12:00:00 AM EDT misc 1 USE DAILY TO TEST BLOOD GLUCOSE USE DAILY TO TEST BLOOD GLUCOSE SOLD: 11/21/2020 [facility] Fluconazole 150 MG Oral Tablet Fluconazole 150 MG 11/21/2020 12:00: 00 AM EDT 1.0 {tablet} active Fluconazole 150 MG eCW1 ([facility]) Nystatin 100 UNT/MG Topical Powder Nystatin 433876 UNI T/GM Nystatin 842857 UNIT/GM 11/21/2020 12:00:00 AM EDT 1.0 {application} active Nystatin 030517 UNIT/GM eCW1 ([facility]) Nystatin 100 UNT/MG Topical Powder Nystatin 279170 UNI T/GM Nystatin 272356 UNIT/GM 11/21/2020 12:00:00 AM EDT 1.0 {application} active Nystatin 702375 UNIT/GM eCW1 ([facility]) Fluconazole 150 MG Oral Tablet Fluconazole 150 MG 11/21/2020 12:00: 00 AM EDT 1.0 {tablet} active Fluconazole 150 MG eCW1 ([facility]) Fluconazole 150 MG Oral Tablet Fluconazole 150 MG 11/21/2020 12:00: 00 AM EDT 1.0 {tablet} active Fluconazole 150 MG eCW1 ([facility]) Fluconazole 150 MG Oral Tablet Fluconazole 150 MG 11/21/2020 12:00: 00 AM EDT 1.0 {tablet} active Fluconazole 150 MG eCW1 ([facility]) Nystatin 100 UNT/MG Topical Powder Nystatin 368841 UNI T/GM Nystatin 751227 UNIT/GM 11/21/2020 12:00:00 AM EDT 1.0 {application} active Nystatin 697988 UNIT/GM eCW1 ([facility]) Nystatin 100 UNT/MG Topical Powder Nystatin 388843 UNI T/GM Nystatin 713234 UNIT/GM 11/21/2020 12:00:00 AM EDT 1.0 {application} active Nystatin 847698 UNIT/GM eCW1 ([facility]) Fluconazole 150 MG Oral Tablet Fluconazole 150 MG 11/21/2020 12:00: 00 AM EDT 1.0 {tablet} active Fluconazole 150 MG eCW1 ([facility]) Nystatin 100 UNT/MG Topical Powder Nystatin 760031 UNI T/GM Nystatin 244124 UNIT/GM 11/21/2020 12:00:00 AM EDT 1.0 {application} active Nystatin 202301 UNIT/GM eCW1 ([facility]) Nystatin 100 UNT/MG Topical Powder Nystatin 409415 UNI T/GM Nystatin 239630 UNIT/GM 11/21/2020 12:00:00 AM EDT 1.0 {application} active Nystatin 439700 UNIT/GM eCW1 ([facility]) Fluconazole 150 MG Oral Tablet Fluconazole 150 MG 11/21/2020 12:00: 00 AM EDT 1.0 {tablet} active Fluconazole 150 MG eCW1 ([facility]) Nystatin 100 UNT/MG Topical Powder Nystatin 702309 UNI T/GM Nystatin 416982 UNIT/GM 11/21/2020 12:00:00 AM EDT 1.0 {application} active Nystatin 417308 UNIT/GM eCW1 ([facility]) Fluconazole 150 MG Oral Tablet Fluconazole 150 MG 11/21/2020 12:00: 00 AM EDT 1.0 {tablet} active Fluconazole 150 MG eCW1 ([facility]) Nystatin 100 UNT/MG Topical Powder Nystatin 380958 UNI T/GM Nystatin 690217 UNIT/GM 11/21/2020 12:00:00 AM EDT 1.0 {application} active Nystatin 404938 UNIT/GM eCW1 ([facility]) Fluconazole 150 MG Oral Tablet Fluconazole 150 MG 11/21/2020 12:00: 00 AM EDT 1.0 {tablet} active Fluconazole 150 MG eCW1 ([facility]) Test Strips - UNK 11/15/2020 12:00:00 AM EDT acti ve Test Strips - eCW1 ([facility]) Test Strips - UNK 11/15/2020 12:00:00 AM EDT acti ve Test Strips - eCW1 ([facility]) Test Strips - UNK 11/15/2020 12:00:00 AM EDT acti ve Test Strips - eCW1 ([facility]) Test Strips - UNK 11/15/2020 12:00:00 AM EDT acti ve Test Strips - eCW1 ([facility]) Test Strips - K 11/15/2020 12:00:00 AM EDT acti ve Test Strips - eCW1 ([facility]) Test Strips - K 11/15/2020 12:00:00 AM EDT acti ve Test Strips - eCW1 ([facility]) Test Strips - [facility] 11/15/2020 12:00:00 AM EDT acti ve Test Strips - eCW1 ([facility]) Test Strips - [facility] 11/15/2020 12:00:00 AM EDT acti ve Test Strips - eCW1 ([facility]) Test Strips - [facility] 11/15/2020 12:00:00 AM EDT acti ve Test Strips - eCW1 ([facility]) Test Strips - [facility] 11/15/2020 12:00:00 AM EDT acti ve Test Strips - eCW1 ([facility]) Test Strips - [facility] 11/15/2020 12:00:00 AM EDT acti ve Test Strips - eCW1 ([facility]) Test Strips - [facility] 11/15/2020 12:00:00 AM EDT acti ve Test Strips - eCW1 ([facility]) Test Strips - [facility] 11/15/2020 12:00:00 AM EDT acti ve Test Strips - eCW1 ([facility]) Test Strips - [facility] 11/15/2020 12:00:00 AM EDT acti ve Test Strips - eCW1 ([facility]) Test Strips - [facility] 11/15/2020 12:00:00 AM EDT acti ve Test Strips - eCW1 ([facility]) Test Strips - [facility] 11/15/2020 12:00:00 AM EDT acti ve Test Strips - eCW1 ([facility]) Test Strips - [facility] 11/15/2020 12:00:00 AM EDT acti ve Test Strips - eCW1 ([facility]) Test Strips - [facility] 11/15/2020 12:00:00 AM EDT acti ve Test Strips - eCW1 ([facility]) Test Strips - UNK 11/15/2020 12:00:00 AM EDT acti ve Test Strips - eCW1 ([facility]) Test Strips - UNK 11/15/2020 12:00:00 AM EDT acti ve Test Strips - eCW1 ([facility]) Test Strips - K 11/15/2020 12:00:00 AM EDT acti ve Test Strips - eCW1 ([facility]) Test Strips - K 11/15/2020 12:00:00 AM EDT acti ve Test Strips - eCW1 ([facility]) Test Strips - [facility] 11/15/2020 12:00:00 AM EDT acti ve Test Strips - eCW1 ([facility]) Test Strips - K 11/15/2020 12:00:00 AM EDT acti ve Test Strips - eCW1 ([facility]) 25 mcg 11/09/2020 12:00:00 AM EDT tablet 15 TAKE ONE-HALF TABLET BY MOUTH EVERY MORNING ON AN EMPTY STOMACH TAKE ONE-HALF TABLET BY MOUTH EVERY MORN ING ON AN EMPTY STOMACH SOLD: 11/11/2020 [facility] Levothyroxine Sodium 0.025 MG Oral Tablet Levothyroxin e Sodium 25 MCG Levothyroxine Sodium 25 MCG 11/08/2020 12:00:00 AM EDT active Levothyroxine Sodium 25 MCG eCW1 ([facility]) Levothyroxine Sodium 0.025 MG Oral Tablet Levothyroxin e Sodium 25 MCG Levothyroxine Sodium 25 MCG 11/08/2020 12:00:00 AM EDT active Levothyroxine Sodium 25 MCG eCW1 ([facility]) Levothyroxine Sodium 0.025 MG Oral Tablet Levothyroxin e Sodium 25 MCG Levothyroxine Sodium 25 MCG 11/08/2020 12:00:00 AM EDT active Levothyroxine Sodium 25 MCG eCW1 ([facility]) Levothyroxine Sodium 0.025 MG Oral Tablet Levothyroxin e Sodium 25 MCG Levothyroxine Sodium 25 MCG 11/08/2020 12:00:00 AM EDT active Levothyroxine Sodium 25 MCG eCW1 ([facility]) Levothyroxine Sodium 0.025 MG Oral Tablet Levothyroxin e Sodium 25 MCG Levothyroxine Sodium 25 MCG 11/08/2020 12:00:00 AM EDT active Levothyroxine Sodium 25 MCG eCW1 ([facility]) Levothyroxine Sodium 0.025 MG Oral Tablet Levothyroxin e Sodium 25 MCG Levothyroxine Sodium 25 MCG 11/08/2020 12:00:00 AM EDT active Levothyroxine Sodium 25 MCG eCW1 ([facility]) Levothyroxine Sodium 0.025 MG Oral Tablet Levothyroxin e Sodium 25 MCG Levothyroxine Sodium 25 MCG 11/08/2020 12:00:00 AM EDT active Levothyroxine Sodium 25 MCG eCW1 ([facility]) Levothyroxine Sodium 0.025 MG Oral Tablet Levothyroxin e Sodium 25 MCG Levothyroxine Sodium 25 MCG 11/08/2020 12:00:00 AM EDT active Levothyroxine Sodium 25 MCG eCW1 ([facility]) Levothyroxine Sodium 0.025 MG Oral Tablet Levothyroxin e Sodium 25 MCG Levothyroxine Sodium 25 MCG 11/08/2020 12:00:00 AM EDT active Levothyroxine Sodium 25 MCG eCW1 ([facility]) Levothyroxine Sodium 0.025 MG Oral Tablet Levothyroxin e Sodium 25 MCG Levothyroxine Sodium 25 MCG 11/08/2020 12:00:00 AM EDT active Levothyroxine Sodium 25 MCG eCW1 ([facility]) Levothyroxine Sodium 0.025 MG Oral Tablet Levothyroxin e Sodium 25 MCG Levothyroxine Sodium 25 MCG 11/08/2020 12:00:00 AM EDT active Levothyroxine Sodium 25 MCG eCW1 ([facility]) Levothyroxine Sodium 0.025 MG Oral Tablet Levothyroxin e Sodium 25 MCG Levothyroxine Sodium 25 MCG 11/08/2020 12:00:00 AM EDT active Levothyroxine Sodium 25 MCG eCW1 ([facility]) Levothyroxine Sodium 0.025 MG Oral Tablet Levothyroxin e Sodium 25 MCG Levothyroxine Sodium 25 MCG 11/08/2020 12:00:00 AM EDT active Levothyroxine Sodium 25 MCG eCW1 ([facility]) Levothyroxine Sodium 0.025 MG Oral Tablet Levothyroxin e Sodium 25 MCG Levothyroxine Sodium 25 MCG 11/08/2020 12:00:00 AM EDT active Levothyroxine Sodium 25 MCG eCW1 ([facility]) Levothyroxine Sodium 0.025 MG Oral Tablet Levothyroxin e Sodium 25 MCG Levothyroxine Sodium 25 MCG 11/08/2020 12:00:00 AM EDT active Levothyroxine Sodium 25 MCG eCW1 ([facility]) Levothyroxine Sodium 0.025 MG Oral Tablet Levothyroxin e Sodium 25 MCG Levothyroxine Sodium 25 MCG 11/08/2020 12:00:00 AM EDT active Levothyroxine Sodium 25 MCG eCW1 ([facility]) Levothyroxine Sodium 0.025 MG Oral Tablet Levothyroxin e Sodium 25 MCG Levothyroxine Sodium 25 MCG 11/08/2020 12:00:00 AM EDT active Levothyroxine Sodium 25 MCG eCW1 ([facility]) Levothyroxine Sodium 0.025 MG Oral Tablet Levothyroxin e Sodium 25 MCG Levothyroxine Sodium 25 MCG 11/08/2020 12:00:00 AM EDT active Levothyroxine Sodium 25 MCG eCW1 ([facility]) Levothyroxine Sodium 0.025 MG Oral Tablet Levothyroxin e Sodium 25 MCG Levothyroxine Sodium 25 MCG 11/08/2020 12:00:00 AM EDT active Levothyroxine Sodium 25 MCG eCW1 ([facility]) Levothyroxine Sodium 0.025 MG Oral Tablet Levothyroxin e Sodium 25 MCG Levothyroxine Sodium 25 MCG 11/08/2020 12:00:00 AM EDT active Levothyroxine Sodium 25 MCG eCW1 ([facility]) Levothyroxine Sodium 0.025 MG Oral Tablet Levothyroxin e Sodium 25 MCG Levothyroxine Sodium 25 MCG 11/08/2020 12:00:00 AM EDT active Levothyroxine Sodium 25 MCG eCW1 ([facility]) Levothyroxine Sodium 0.025 MG Oral Tablet Levothyroxin e Sodium 25 MCG Levothyroxine Sodium 25 MCG 11/08/2020 12:00:00 AM EDT active Levothyroxine Sodium 25 MCG eCW1 ([facility]) Levothyroxine Sodium 0.025 MG Oral Tablet Levothyroxin e Sodium 25 MCG Levothyroxine Sodium 25 MCG 11/08/2020 12:00:00 AM EDT active Levothyroxine Sodium 25 MCG eCW1 ([facility]) Levothyroxine Sodium 0.025 MG Oral Tablet Levothyroxin e Sodium 25 MCG Levothyroxine Sodium 25 MCG 11/08/2020 12:00:00 AM EDT active Levothyroxine Sodium 25 MCG eCW1 ([facility]) Levothyroxine Sodium 0.025 MG Oral Tablet Levothyroxin e Sodium 25 MCG Levothyroxine Sodium 25 MCG 11/08/2020 12:00:00 AM EDT active Levothyroxine Sodium 25 MCG eCW1 ([facility]) Levothyroxine Sodium 0.025 MG Oral Tablet Levothyroxin e Sodium 25 MCG Levothyroxine Sodium 25 MCG 11/08/2020 12:00:00 AM EDT active Levothyroxine Sodium 25 MCG eCW1 ([facility]) NITROFURANTOIN, MACROCRYSTALS 25 MG / Ni trofurantoin, Monohydrate 75 MG Oral Capsule 100 mg NITROFURANTOIN MONOHYD/M-CRYST 10/30/2020 12:00:00 AM EDT ca psule 10 TAKE ONE CAPSULE BY MOUTH TWICE A DAY TAKE ONE CAPSULE BY MOUTH TWICE A DAY SOLD: 10/30/2020 [facility] 25 mg 10/26/2020 12:00:00 AM EDT tablet 90 TAKE ONE TABLET BY MOUTH ONCE A DAY AT 8AM TAKE ONE TABLET BY MOUTH ONCE A DAY AT 8AM SOLD: 10/26/2020 [facility] 70 mg 10/06/2020 12:00:00 AM EDT tablet 4 TAKE ONE TABLET BY MOUTH 30 MINUTES BEFORE THE FIRST FOOD, BEVERAGE OR MEDICINE OF THE DAY WITH PLAIN WATER ONCE WEEKLY TAKE ONE TABLET BY MOUTH 30 MINUTES BEFO RE THE FIRST FOOD, BEVERAGE OR MEDICINE OF THE DAY WITH PLAIN WATER ONCE WEEKLY SOLD: 10/06/2020 [facility] Famotidine 20 MG Oral Tablet FAMOTIDINE 10/06/2020 12:00:00 AM EDT tab let 30 TAKE ONE TABLET BY MOUTH ONCE DAILY AT BEDTIME NEEDED TAKE ONE TABLET BY MOUTH ONCE DAILY AT BEDTIME NEEDED SOLD: 10/06/2020 [facility] 20 mg 06/25/2020 12:00:00 AM EST tablet 10 TAKE ONE TABLET BY MOUTH TWO TIMES A DAY TAKE ONE TABLET BY MOUTH TWO TIMES A DAY SOLD: 06/27/2020 [facility] 20-100 mcg/actuation 06/25/2020 12:00:00 AM EST mist 4 INHALE 1 PUFF BY MOUTH FOUR TIMES A DAY INHALE 1 PUFF BY MOUTH FOUR TIMES A DAY SOLD: 06/27/2020 [facility] 50 mg 06/23/2020 12:00:00 AM EST tablet 15 TAKE 1/2 TABLET BY MOUTH AT BEDTIME NEEDED TAKE 1/2 TABLET BY MOUTH AT BEDTIME NEEDED SOLD: [facility] 50 mg 06/23/2020 12:00:00 AM EST tablet 15 TAKE 1/2 TABLET BY MOUTH AT BEDTIME NEEDED TAKE 1/2 TABLET BY MOUTH AT BEDTIME NEEDED SOLD: [facility] Famotidine 20 MG Oral Tablet FAMOTIDINE 06/23/2020 12:00:00 AM EST tab let 30 TAKE ONE TABLET BY MOUTH AT BEDTIME NEEDED TAKE ONE TABLET BY MOUTH AT BEDTIME NEEDED SOLD: 06/23/2020 [facility] 50 mg 06/23/2020 12:00:00 AM EST tablet 15 TAKE 1/2 TABLET BY MOUTH AT BEDTIME NEEDED TAKE 1/2 TABLET BY MOUTH AT BEDTIME NEEDED SOLD: [facility] Famotidine 20 MG Oral Tablet Famotidine 20 MG 06/22/2020 12:00:00 A M EST 1.0 {tablet_at_bedtime_as_needed} active Fa motidine [address] [facility] ([facility]) Famotidine 20 MG Oral Tablet Famotidine 20 MG 06/22/2020 12:00:00 A M EST 1.0 {tablet_at_bedtime_as_needed} active Fa motidine 20 MG eCW1 ([facility]) Famotidine 20 MG Oral Tablet Famotidine 20 MG 06/22/2020 12:00:00 A M EST 1.0 {tablet_at_bedtime_as_needed} active Fa motidine 20 MG eCW1 ([facility]) Famotidine 20 MG Oral Tablet Famotidine 20 MG 06/22/2020 12:00:00 A M EST 1.0 {tablet_at_bedtime_as_needed} active Fa motidine 20 MG eCW1 ([facility]) Famotidine 20 MG Oral Tablet Famotidine 20 MG 06/22/2020 12:00:00 A M EST 1.0 {tablet_at_bedtime_as_needed} active Fa motidine 20 MG eCW1 ([facility]) Famotidine 20 MG Oral Tablet Famotidine 20 MG 06/22/2020 12:00:00 A M EST 1.0 {tablet_at_bedtime_as_needed} active Fa motidine 20 MG eCW1 ([facility]) Famotidine 20 MG Oral Tablet Famotidine 20 MG 06/22/2020 12:00:00 A M EST 1.0 {tablet_at_bedtime_as_needed} active Fa motidine 20 MG eCW1 ([facility]) Famotidine 20 MG Oral Tablet Famotidine 20 MG 06/22/2020 12:00:00 A M EST 1.0 {tablet_at_bedtime_as_needed} active Fa motidine 20 MG eCW1 ([facility]) Famotidine 20 MG Oral Tablet Famotidine 20 MG 06/22/2020 12:00:00 A M EST 1.0 {tablet_at_bedtime_as_needed} active Fa motidine 20 MG eCW1 ([facility]) Famotidine 20 MG Oral Tablet Famotidine 20 MG 06/22/2020 12:00:00 A M EST 1.0 {tablet_at_bedtime_as_needed} active Fa motidine 20 MG eCW1 ([facility]) Famotidine 20 MG Oral Tablet Famotidine 20 MG 06/22/2020 12:00:00 A M EST 1.0 {tablet_at_bedtime_as_needed} active Fa motidine 20 MG eCW1 ([facility]) Famotidine 20 MG Oral Tablet Famotidine 20 MG 06/22/2020 12:00:00 A M EST 1.0 {tablet_at_bedtime_as_needed} active Fa motidine 20 MG eCW1 ([facility]) Famotidine 20 MG Oral Tablet Famotidine 20 MG 06/22/2020 12:00:00 A M EST 1.0 {tablet_at_bedtime_as_needed} active Fa motidine 20 MG eCW1 ([facility]) Famotidine 20 MG Oral Tablet Famotidine 20 MG 06/22/2020 12:00:00 A M EST 1.0 {tablet_at_bedtime_as_needed} active Fa motidine 20 MG eCW1 ([facility]) Famotidine 20 MG Oral Tablet Famotidine 20 MG 06/22/2020 12:00:00 A M EST 1.0 {tablet_at_bedtime_as_needed} active Fa motidine 20 MG eCW1 ([facility]) Famotidine 20 MG Oral Tablet Famotidine 20 MG 06/22/2020 12:00:00 A M EST 1.0 {tablet_at_bedtime_as_needed} active Fa motidine 20 MG eCW1 ([facility]) Famotidine 20 MG Oral Tablet Famotidine 20 MG 06/22/2020 12:00:00 A M EST 1.0 {tablet_at_bedtime_as_needed} active Fa motidine 20 MG eCW1 ([facility]) Famotidine 20 MG Oral Tablet Famotidine 20 MG 06/22/2020 12:00:00 A M EST 1.0 {tablet_at_bedtime_as_needed} active Fa motidine 20 MG eCW1 ([facility]) Famotidine 20 MG Oral Tablet Famotidine 20 MG 06/22/2020 12:00:00 A M EST 1.0 {tablet_at_bedtime_as_needed} active Fa motidine 20 MG eCW1 ([facility]) Famotidine 20 MG Oral Tablet Famotidine 20 MG 06/22/2020 12:00:00 A M EST 1.0 {tablet_at_bedtime_as_needed} active Fa motidine 20 MG eCW1 ([facility]) Famotidine 20 MG Oral Tablet Famotidine 20 MG 06/22/2020 12:00:00 A M EST 1.0 {tablet_at_bedtime_as_needed} active Fa motidine 20 MG eCW1 ([facility]) Famotidine 20 MG Oral Tablet Famotidine 20 MG 06/22/2020 12:00:00 A M EST 1.0 {tablet_at_bedtime_as_needed} active Fa motidine 20 MG eCW1 ([facility]) Famotidine 20 MG Oral Tablet Famotidine 20 MG 06/22/2020 12:00:00 A M EST 1.0 {tablet_at_bedtime_as_needed} active Fa motidine 20 MG eCW1 ([facility]) Famotidine 20 MG Oral Tablet Famotidine 20 MG 06/22/2020 12:00:00 A M EST 1.0 {tablet_at_bedtime_as_needed} active Fa motidine 20 MG eCW1 ([facility]) Famotidine 20 MG Oral Tablet Famotidine 20 MG 06/22/2020 12:00:00 A M EST 1.0 {tablet_at_bedtime_as_needed} active Fa motidine 20 MG eCW1 ([facility]) Famotidine 20 MG Oral Tablet Famotidine 20 MG 06/22/2020 12:00:00 A M EST 1.0 {tablet_at_bedtime_as_needed} active Fa motidine 20 MG eCW1 ([facility]) Famotidine 20 MG Oral Tablet Famotidine 20 MG 06/22/2020 12:00:00 A M EST 1.0 {tablet_at_bedtime_as_needed} active Fa motidine 20 MG eCW1 ([facility]) Famotidine 20 MG Oral Tablet Famotidine 20 MG 06/22/2020 12:00:00 A M EST 1.0 {tablet_at_bedtime_as_needed} active Fa motidine 20 MG eCW1 ([facility]) Famotidine 20 MG Oral Tablet Famotidine 20 MG 06/22/2020 12:00:00 A M EST 1.0 {tablet_at_bedtime_as_needed} active Fa motidine 20 MG eCW1 ([facility]) 1 mg 06/07/2020 12:00:00 AM EST tablet 90 TAKE ONE TABLET BY MOUTH EVERY DAY TAKE ONE TABLET BY MOUTH EVERY DAY SOLD: 06/07/2020 [facility] 20 mg 06/07/2020 12:00:00 AM EST capsule,delayed release (DR/EC) 30 TAKE ONE CAPSULE BY MOUTH ONCE DAILY TAKE ONE CAPSULE BY MOUTH ONCE DAILY SOLD: 06/07/2020 [facility] 25 mg 05/29/2020 12:00:00 AM EST tablet 90 TAKE ONE TABLET BY MOUTH EVERY DAY AT 8AM TAKE ONE TABLET BY MOUTH EVERY DAY AT 8AM SOLD: 05/29/2020 [facility] 10 mg 05/29/2020 12:00:00 AM EST tablet 180 TAKE ONE TABLET BY MOUTH EVERY DAY AT 8AM AND 8PM TAKE ONE TABLET BY MOUTH EVERY DAY AT 8AM AND 8PM SOLD : 05/29/2020 [facility] 50 mg 05/27/2020 12:00:00 AM EST [...] AT 8AM SOLD: 05/29/2020 [facility] 10 mg 05/27/2020 12:00:00 AM EST tablet 30 TAKE ONE TABLET BY MOUTH EVERY DAY AT 8AM TAKE ONE TABLET BY MOUTH EVERY DAY AT 8AM SOLD: 11/21/2020 [facility] Escitalopram 10 MG Oral Tablet ESCITALOPRAM OXALATE 05/26/2020 1 2:00:00 AM EST tablet 90 TAKE ONE TABLET BY MOUTH EVERY D AY TAKE ONE TABLET BY MOUTH EVERY DAY SOLD: 05/26/2020 [facility] 5 mg 01/10/2020 12:00:00 AM EDT tablet 90 TAKE ONE TABLET BY MOUTH EVERY DAY TAKE ONE TABLET BY MOUTH EVERY DAY SOLD: 05/26/2020 [facility] Oxybutynin chloride 5 MG Oral Tablet OXYBUTYNIN CHLORIDE 11/2019 12:00:00 AM EDT tablet 90 TAKE ONE TABLET BY MOUTH KATHRYN DAY TAKE ONE TABLET BY MOUTH EVERY DAY SOLD: 01/16/2020 [facility] atorvastatin 40 MG Oral Tablet ATORVASTATIN CALCIUM 01/10/2020 1 2:00:00 AM EDT tablet 90 TAKE ONE TABLET BY MOUTH EVERY D AY TAKE ONE TABLET BY MOUTH EVERY DAY SOLD: 05/26/2020 [facility] atorvastatin 40 MG Oral Tablet ATORVASTATIN CALCIUM 01/10/2020 1 2:00:00 AM EDT tablet 90 TAKE ONE TABLET BY MOUTH EVERY D AY TAKE ONE TABLET BY MOUTH EVERY DAY SOLD: 01/16/2020 [facility] 150 mg 12/25/2019 12:00:00 AM EDT tablet 90 TAKE ONE TABLET BY MOUTH EVERY DAY TAKE ONE TABLET BY MOUTH EVERY DAY SOLD: 05/26/2020 [facility] DIAPER,BRIEF,ADULT, DISPOSABLE 12/18/2019 12:00:00 AM EDT mi sc 108 USE DIRECTED FOUR TIMES A DAY USE DIRECTED FOUR TIMES A DAY SOLD: 01/16/2020 [facility] 25 mg 10/19/2019 12:00:00 AM EDT tablet extended release 24 hr 45 TAKE 1/2 TABLET BY MOUTH ONCE DAILY TAKE 1/2 TABLET BY MOUTH ONCE DAILY SOLD: 05/26/2020 [facility] 200 mcg 10/19/2019 12:00:00 AM EDT tablet 30 TAKE ONE TABLET BY MOUTH EVERY DAY TAKE ONE TABLET BY MOUTH EVERY DAY SOLD: 05/26/2020 [facility] Insurance Providers Payer name Policy type / Coverage type Policy ID Covered constitution party ID Covered constitution party's relationship to mon[place] Policy [place] Plan Information [place] Med[place] B [id number] Self Medicare [facility] Medigap Part B [id number] Self [id number] Medicare [facility] Medigap Part B [id number] Self [id number] [place] [id number] Self [id number] [place] [id number] Self [id number] [place] [id number] Self [id number] MEDICARE [id number] SP [id number] W [place] [id number] Self [id number] [place] [id number] Self [id number] MEDICARE [id number] [facility] [id number] [place] [id number] Self [id number] [place] [id number] Self [id number] [place] [id number] [place] [id number] Self [id number] [place] [id number] Self [id number] [place] [id number] Self [id number] zzMedicaid FFS O [id number] S [id number] Medicaid S [id number] S [id number] Medicare P [id number] S [id number] W Medicaid S [id number] S [id number] Medicaid O [id number] Medicare S [id number] S [id number] W [facility] MCRO [id number] SP [id number] [facility] Medicare Commercial Dual Complete [id number] Self Dual Complete [facility] MCRO [id number] SP [id number] [facility] Secure Horizons P [id number] S [id number] [facility] [employer] P [id number] S [id number] [facility] [employer] P [id number] S [id number] [place] [id number] Self [id number] [facility]) Commercial [id number] [place] [id number] Self [facility] ([facility]) Commercial [id number] Self [id number] [facility]) Medigap Part B [id number] Self [id number] [place] [id number] Self [id number] [place] [id number] Self [id number] [facility] ([facility]) Medigap Part B [id number] Self [id number] [place] [id number] Self [id number] [facility] ([facility]) Medigap Part B [id number] Self [id number] [place] [id number] Self [id number] [facility] ([facility]) Medigap Part B [id number] Self [id number] [place] [id number] Self [id number] [facility] ([facility]) Medigap Part B [id number] Self [id number] [place] [id number] Self [id number] [facility] ([facility]) Commercial [id number] Self [id number] [place] [id number] Self [id number] [facility] ([facility]) Medigap Part B [id number] Self [id number] [place] [id number] Self [id number] [facility] ([facility]) Medigap Part B [id number] Self [id number] [place] [id number] Self [id number] [facility] ([facility]) Medigap Part B [id number] Self [id number] [place] [id number] Self [id number] [facility] ([facility]) Medigap Part B [id number] Self [id number] [place] [id number] Self [id number] [facility] ([facility]) Commercial [id number] Self [id number] Medicaid S [id number] S [id number] [facility] Medicare Commercial [id number] Self [id number] [facility] [id number] SP [id number] [employer] MEDICARE [id number] Danielle [id number] [facility] Hmo Commercial [id number] Self [id number] MEDICARE COMPLETE-[facility] O [id number] S [id number] [facility] Medicare Medigap Part B [id number] Self [id number] [facility]) O [id number] S [id number] [facility] Hmo Commercial [id number] Self [employer] HMO [id number] SP [id number] [facility] [id number] SP [id number] [employer] HMO [id number] SP [id number] MEDICARE [id number] SP [id number] MEDICAID [id number] SP [id number] MEDICARE [id number] SP [id number] Y62 [facility]) O [id number] S [id number] MEDICARE C [id number] S [id number] W Medicare Wrap O [id number] S [id number] [place] [id number] SP [id number] W MEDICAID M [id number] S [id number] [employer] GOLD O [id number] S [id number] [place] [id number] SP [id number] [employer] GOLD PLUS -O/P [id number] 18 [id number] MEDICARE [id number] SP [id number] W zzMedicaid FFS O [id number] S [id number] [employer] GOLD [id number] SP [id number] [employer] GOLD [id number] SP [id number] [employer] Medicare Medigap Part B [id number] Self [id number] MEDICARE [id number] SP [id number] W MEDICAID [id number] SP [id number] Problems, Conditions, and Diagnoses Code Display Name Description Problem Type Effective Dates Data Source(s) Z794 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 Diagnosis 07/12/2020 07:15:00 AM [facility] Z885 Allergy status to narcotic agent Allergy status to narcotic agent Diagnosis 07/12/2020 07:15:00 AM [facility] 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, unspecified, bilateral Preglaucoma, unspecified, bilateral Diagnosis 07/12/2020 07:15:00 AM [facility] H524 Presbyopia Presbyopia Diagnosis 07/12/2020 07:15:00 AM [facility] F329 Major depressive disorder, single episod e, unspecified Major depressive disorder, single episode, unspecified Diagnosis 07/12/2020 07:15:00 AM [facility] F419 Anxiety disorder, unspecified Anxiety disorder, unspec ified Diagnosis 07/12/2020 07:15:00 AM [facility] I10 Essential (primary) hypertension Essential (primary) h ypertension Diagnosis 07/12/2020 07:15:00 AM [facility] H2513 Age-related nuclear cataract, bilateral Age-related nuclear cataract, bilateral Diagnosis 07/12/2020 07:15:00 AM [facility] E1136 Type 2 diabetes mellitus with diabetic c ataract Type 2 diabetes mellitus with diabetic cataract Diagnosis 07/12/2020 07:15:00 AM [facility] Z833 Family history of diabetes mellitus Family histo ry of diabetes mellitus Diagnosis 05/17/2020 09:00:00 AM [facility] Z8249 Family history of ischemic h eart disease and other diseases of the circulatory system Family history of ischemic heart disease and other diseases of the circulatory system Diagnosis 05/17/2020 09:00:00 AM [facility] 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 O ther fci (current) drug therapy Diagnosis 05/17/2020 09:00:00 AM [facility] F411 Generalized anxiety disorder Generalized anxiety disor johnathan Diagnosis 05/17/2020 09:00:00 AM [facility] H259 Unspecified age-related cataract Unspecified age -related cataract Diagnosis 05/17/2020 09:00:00 AM [facility] [id number] Encounter for other preprocedural examin ation Encounter for other preprocedural examination Diagnosis 05/10/2020 09:20:00 AM [facility] E66.9 Obesity, unspecified Obesity, unspecified Diagnosis 02/04/2020 11:09:[address] [facility] R60.9 Edema, unspecified Edema, unspecified Diagnosis 06/2019 11:09:[address] [facility] E11.9 Type 2 diabetes mellitus without complic ations Type 2 diabetes mellitus without complic Diagnosis 02/04/2020 11:09:[address] [facility] R94.31 Abnormal electrocardiogram [ECG] [EKG] A bnormal electrocardiogram (ECG) (EKG) Diagnosis 02/04/2020 11:09:[address] [facility] G47.33 Obstructive sleep apnea (adult) (pediatr ic) Obstructive sleep apnea (adult) (pediatr Diagnosis 02/04/2020 11:09:[address] [facility] E03.9 Hypothyroidism, unspecified Hypothyroidism, unspecifie d Diagnosis 02/04/2020 11:09:[address] [facility] J44.9 Chronic obstructive pulmonary disease, u nspecified Chronic obstructive pulmonary disease, u Diagnosis 02/04/2020 11:09:[address] [facility] I10 Essential (primary) hypertension Essential (primary) h ypertension Diagnosis 02/04/2020 11:09:[address] [facility] E78.5 Hyperlipidemia, unspecified Hyperlipidemia, unspecifie d Diagnosis 02/04/2020 11:09:[address] [facility] E03.9 [id number] Hypothyroidism, unspecified type Problem 02/10/2021 12:00:00 AM EDT eCW1 ([facility]) R29.6 [id number] Frequent falls Problem 02/09/2021 12:00:00 A M EDT eCW1 ([facility]) E11.8 [id number] Type 2 diabetes mellitus with complicatio ns Problem 11/30/2020 12:00:00 AM EDT eCW1 ([facility]) N18.4 [id number] Chronic kidney disease, stage 4 (severe) Problem 11/30/2020 12:00:00 AM EDT eCW1 ([facility]) E78.5 Hyperlipidemia Hyperlipidemia, unspecified Problem 10/05/2020 12:00:00 AM EDT eCW1 ([facility]) Z92.241 [id number] History of steroid therapy Problem 12:00:00 AM EDT eCW1 ([facility]) E11.22 [id number] 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 Problem 06/22/2020 12:00:00 AM EST eCW1 ([facility]) G47.00 [id number] Insomnia, unspecified type Problem 12:00:00 AM EST eCW1 ([facility]) G47.9 79347232 Sleep disturbance Problem 06/22/2020 12:00:0 0 AM EST eCW1 ([facility]) H25.11 [id number] Age-related nuclear cataract, right ey e Problem 05/08/2020 12:00:00 AM EST eCW1 ([facility]) E11.21 194062716 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 Problem 03/30/2020 12:00:00 AM EST eCW1 ([facility]) I10 90582315 Hypertension, unspecified type Problem 03/30 12:00:00 AM EST eCW1 ([facility]) F17.200 00950350 Smoker Problem 03/30/2020 12:00:00 AM ES T eCW1 ([facility]) Z90.81 [id number] Asplenia after surgical procedure Problem 03/30/2020 12:00:00 AM EST eCW1 ([facility]) E11.69 [id number] Type 2 diabetes mellitus with ot her specified complication Problem 03/30/2020 12:00:00 AM EST eCW1 ([facility]) Surgeries/Procedures Procedure Description Date Indications Data Source(s) RADEX HAND MINIMUM 3 VIEWS 12/14/2020 12:00:00 AM EDT [facility] ([facility] ) OFFICE OUTPATIENT VISIT 15 MINUTES 12/14/2020 12:00:00 AM EDT [facility] ([facility] ) THERAPEUTIC PX 1/> AREAS EACH 15 MIN EXERCISES 12:00:00 AM EDT [facility] ([facility] ) THERAPEUTIC PX 1/> AREAS EACH 15 MIN EXERCISES 12:00:00 AM EDT [facility] ([facility] ) Results ID Date Data Source [id number] 01/31/2021 05:10:00 PM EDT [facility] Name Value Range Interpretation Code Description Data Anju rce(s) Supporting Document(s) SARS coronavirus 2 RNA [Presence] in Res piratory specimen by HECTOR with probe detection NEGATIVE [facility] This lab was ordered by [facility] a nd reported by [facility]. ID Date Data Source [id number] 12/08/2020 04:45:00 PM EDT [facility] Name Value Range Interpretation Code Description Data Anju rce(s) Supporting Document(s) SARS-CoV-2 (COVID-19) Negative [facility] This lab was ordered by [facility] and reported by [facility]. ID Date Data Source [facility] URINALYSIS 11/09/2020 12:00:00 AM EDT eCW1 ([facility]) Name Value Range Interpretation Code Description Data Anju rce(s) Supporting Document(s) UA URINALYSIS eCW1 ([facility]) ID Date Data Source [id number] 07/19/2020 02:01:00 [place] [address] OPERATIVE SUMMARYNAME: MAZIN BENITEZ DATE OF : 1955TTENDING PHYS: Norma Asher MD DATE: 07/12/20 MR#: [id number] PROCEDURE: 07/12/20PREOPERATIVE DIAGNOSIS: Cataract, left eye.POSTOPERATIVE DIAGNOSIS: Cataract, left eyePROCEDURE: Phacoemulsification with cataract removal with the help of ORA, IOL lens useAUOOTO 18.5 diopter.SURGEON: Norma Asher MD.INTAKE COUNSELOR: None.INDICATIONS: Decreased vision interfering with daily activities.DETAILS OF PROCEDURE:Patient was brought to the operating room and laid in the supine position. The eye was prepped anddraped in a sterile fashion for ophthalmic surgery, following which a lid speculum was placed. Aside port incision was made and Viscoat was injected into the anterior chamber. A cornea incisionwas made with a 2.4 mm Keratome, followed by a capsulorhexis. Hydrodissection was carried outwith a balanced salt solution followed by phacoemulsification in a [id number] methodwithin the capsular bag. Excess cortical material was then aspirated using irrigation and aspirationcannula. Visco was then placed into the capsular bag and intraocular lens was inserted aftermultiple ORA calculations were reviewed and power was chosen. Intraocular lens used wasAUOOTO power 18.5 diopter. Excess Viscoelastic was then aspirated. The wound was hydrated.Intracameral antibiotics and subtenon steroid injections were given. The speculum was removedand the patient was returned to the recovery room in stable condition.DD: Norma Asher MD 07/18/20 18:07DT: HANNAH 07/19/20 13:59DS: Norma Asher MD 08/16/20 15:20 1 Name Value Range Interpretation Code Description Data Anju rce(s) Supporting Document(s) ID Date Data Source [id number] 07/07/2020 01:46:00 PM EST [facility] Name Value Range Interpretation Code Description Data Anju rce(s) Supporting Document(s) SARS-CoV-2 (COVID-19) Negative [facility] This lab was ordered by [facility] and reported by [facility]. ID Date Data Source [id number] 06/25/2020 09:05:00 AM EST [facility] Name Value Range Interpretation Code Description Data Anju rce(s) Supporting Document(s) SARS-CoV-2 (COVID 19) NEGATIVE - SARS-CoV-2 (COVID19) [facility] This lab was ordered by [facility] a nd reported by [facility]. ID Date Data Source [id number] 05/25/2020 08:51:00 [place] [address] OPERATIVE SUMMARYNAME: MAZIN BENITEZ DATE OF : 1955TTENDING PHYS: Norma Asher MD DATE: 05/17/20 MR#: [id number] PROCEDURE: 05/17/2020REOPERATIVE DIAGNOSIS: Cataract, right eye.POSTOPERATIVE DIAGNOSIS: Cataract, right eyePROCEDURE: Phacoemulsification with intraocular lens implantation with the help of ORA,AUOOTO 18 diopters.SURGEON: Norma Asher MD.INTAKE COUNSELOR: None.COMPLICATIONS: None.INDICATIONS: Decreased vision interfering with daily [...] salt solution followed by phacoemulsification in a [id number] methodwithin the capsular bag. Excess cortical material [...] condition.DD: Norma Asher MD 05/25/20 08:27 1 [place] [address] OPERATIVE SUMMARYNAME: MAZIN BENITEZ DATE OF : 3ATTENDING PHYS: Norma Asher MD DATE: 05/17/20 MR#: [id number]: SSR 05/25/20 08:50DS: Norma Asher MD 06/05/20 13:41 2 Name Value Range Interpretation Code Description Data Anju rce(s) Supporting Document(s) ID Date Data Source [id number] 05/12/2020 11:07:00 AM EST [facility] Name Value Range Interpretation Code Description Data Anju rce(s) Supporting Document(s) SARS-CoV-2 (COVID-19) Negative [facility] This lab was ordered by [facility] and reported by [facility]. Procedure Social History Code Duration Value Status Description Data Source(s ) Smoking 03/02/2021 12:00:00 AM EDT Former Smoker completed Former Smoker eCW1 ([facility]) Smoking 02/09/2021 12:00:00 AM EDT Former Smoker completed Former Smoker eCW1 ([facility]) Smoking 02/09/2021 12:00:00 AM EDT Former Smoker completed Former Smoker eCW1 ([facility]) Smoking 01/01/2021 12:00:00 AM EDT Former Smoker completed Former Smoker eCW1 ([facility]) Smoking 01/01/2021 12:00:00 AM EDT Former Smoker completed Former Smoker eCW1 ([facility]) Smoking 11/28/2020 12:00:00 AM EDT Former Smoker completed Former Smoker eCW1 ([facility]) Smoking 11/28/2020 12:00:00 AM EDT Former Smoker completed Former Smoker eCW1 ([facility]) Smoking 11/09/2020 12:00:00 AM EDT Former Smoker completed Former Smoker eCW1 ([facility]) Smoking 11/09/2020 12:00:00 AM EDT Former Smoker completed Former Smoker eCW1 ([facility]) Smoking 11/09/2020 12:00:00 AM EDT Former Smoker completed Former Smoker eCW1 ([facility]) Smoking 11/09/2020 12:00:00 AM EDT Former Smoker completed Former Smoker eCW1 ([facility]) Smoking 11/09/2020 12:00:00 AM EDT Former Smoker completed Former Smoker eCW1 ([facility]) Smoking 11/09/2020 12:00:00 AM EDT Former Smoker completed Former Smoker eCW1 ([facility]) Smoking 11/09/2020 12:00:00 AM EDT Former Smoker completed Former Smoker eCW1 ([facility]) Smoking 11/09/2020 12:00:00 AM EDT Former Smoker completed Former Smoker eCW1 ([facility]) Smoking 11/09/2020 12:00:00 AM EDT Former Smoker completed Former Smoker eCW1 ([facility]) Smoking 11/09/2020 12:00:00 AM EDT Former Smoker completed Former Smoker eCW1 ([facility]) Smoking 11/09/2020 12:00:00 AM EDT Former Smoker completed Former Smoker eCW1 ([facility]) Smoking 11/09/2020 12:00:00 AM EDT Former Smoker completed Former Smoker eCW1 ([facility]) Smoking 11/09/2020 12:00:00 AM EDT Former Smoker completed Former Smoker eCW1 ([facility]) Smoking 11/09/2020 12:00:00 AM EDT Former Smoker completed Former Smoker eCW1 ([facility]) Smoking 11/09/2020 12:00:00 AM EDT Former Smoker completed Former Smoker eCW1 ([facility]) Smoking 11/09/2020 12:00:00 AM EDT Former Smoker completed Former Smoker eCW1 ([facility]) Smoking 11/09/2020 12:00:00 AM EDT Former Smoker completed Former Smoker eCW1 ([facility]) Smoking 11/09/2020 12:00:00 AM EDT Former Smoker completed Former Smoker eCW1 ([facility]) Smoking 11/09/2020 12:00:00 AM EDT Former Smoker completed Former Smoker eCW1 ([facility]) Smoking 10/26/2020 12:00:00 AM EDT Former Smoker completed Former Smoker eCW1 ([facility]) Smoking 07/06/2020 12:00:00 AM EST Former Smoker completed Former Smoker eCW1 ([facility]) Smoking 06/21/2020 12:00:00 AM EST Former Smoker completed Former Smoker eCW1 ([facility]) Smoking 05/22/2020 12:00:00 AM EST Former Smoker completed Former Smoker eCW1 ([facility]) Smoking 05/22/2020 12:00:00 AM EST Former Smoker completed Former Smoker eCW1 ([facility]) Smoking 05/22/2020 12:00:00 AM EST Former Smoker completed Former Smoker eCW1 ([facility]) Smoking 05/08/2020 12:00:00 AM EST Former Smoker completed Former Smoker eCW1 ([facility]) Vital Signs ID Date Data Source UNK Name Value Range Interpretation Code Description Data Source(s) Body temperature 96.9 [degF] 96.9 [degF] MEDENT ([facility]) Body height 61.75 [in_i] 61.75 [in_i] MEDENT ([facility]) 5'1.75" Body weight 168.12 [lb_av] 168.12 [lb_av] MEDEN T ([facility]) Body mass index (BMI) [Ratio] 31.0 kg/m2 31.0 k g/m2 MEDENT ([facility]) Body weight 181.0 [lb_av] 181.0 [lb_av] eCW1 ([facility]) Body height 61.75 [in_i] 61.75 [in_i] eCW1 ([facility]) Body mass index (BMI) [Ratio] 33.37 kg/m2 33.37 kg/m2 eCW1 ([facility]) Heart rate 77 /min 77 /min eCW1 ([facility]) Respiratory rate 18 /min 18 /min eCW1 ([facility]) Body temperature 96.9 [degF] 96.9 [degF] eCW1 ( [facility]) Systolic blood pressure 130 mm[Hg] 130 mm[Hg] e CW1 ([facility]) Diastolic blood pressure 70 mm[Hg] 70 mm[Hg] eCW1 ([facility]) Body weight 179.8 [lb_av] 179.8 [lb_av] eCW1 ([facility]) Body height 61.75 [in_i] 61.75 [in_i] eCW1 ([facility]) Body mass index (BMI) [Ratio] 33.15 kg/m2 33.15 kg/m2 eCW1 ([facility]) Heart rate 75 /min 75 /min eCW1 ([facility]) Respiratory rate 18 /min 18 /min eCW1 ([facility]) Body temperature 96.1 [degF] 96.1 [degF] eCW1 ( [facility]) Systolic blood pressure 130 mm[Hg] 130 mm[Hg] e CW1 ([facility]) Diastolic blood pressure 80 mm[Hg] 80 mm[Hg] eCW1 ([facility]) Diastolic blood pressure 88 mm[Hg] 88 mm[Hg] eCW1 ([facility]) Body weight 177.6 [lb_av] 177.6 [lb_av] eCW1 ([facility]) Body height 61.75 [in_i] 61.75 [in_i] eCW1 ([facility]) Body mass index (BMI) [Ratio] 32.74 kg/m2 32.74 kg/m2 eCW1 ([facility]) Heart rate 78 /min 78 /min eCW1 ([facility]) Respiratory rate 18 /min 18 /min eCW1 ([facility]) Body temperature 97.8 [degF] 97.8 [degF] eCW1 ( [facility]) Systolic blood pressure 130 mm[Hg] 130 mm[Hg] e CW1 ([facility]) Body weight 184.6 [lb_av] 184.6 [lb_av] eCW1 ([facility]) Body height 61.75 [in_i] 61.75 [in_i] eCW1 ([facility]) Body mass index (BMI) [Ratio] 34.03 kg/m2 34.03 kg/m2 eCW1 ([facility]) Heart rate 84 /min 84 /min eCW1 ([facility]) Respiratory rate 18 /min 18 /min eCW1 ([facility]) Body temperature 97.1 [degF] 97.1 [degF] eCW1 ( [facility]) Systolic blood pressure 120 mm[Hg] 120 mm[Hg] e CW1 ([facility]) Diastolic blood pressure 74 mm[Hg] 74 mm[Hg] eCW1 ([facility]) ID Date Data Source [id number] 08/16/2020 03:20:59 PM EDT [facility] Hospital Name Value Range Interpretation Code Description Data Source(s) WEIGHT RECORDED 184.00 pounds 184.00 pounds [facility] Height 60 Inches 060 Inches [facility] ID Date Data Source [id number] 06/05/2020 01:41:52 PM EST [facility] Hospital Name Value Range Interpretation Code Description Data Source(s) WEIGHT RECORDED 184.00 pounds 184.00 pounds [facility] Height 60 Inches 060 Inches [facility] Patient Treatment Plan of Care Planned Activity Planned Date Details Description Data Source (s) Cyanocobalamin 1000 MCG 02/02/2021 12:00:00 AM EDT eCW1 ([facility]) Insulin Glargine 100 UNIT/ML 11/30/2020 12:00:00 AM EDT eCW1 ([facility]) Insulin Glargine 100 UNIT/ML 11/30/2020 12:00:00 AM EDT eCW1 ([facility]) Nystatin 100 UNT/MG Topical Powder 11/23/2020 12:00:00 AM EDT eCW1 ([facility]) Nystatin 100 UNT/MG Topical Powder 11/23/2020 12:00:00 AM EDT eCW1 ([facility]) Nystatin 100 UNT/MG Topical Powder 11/23/2020 12:00:00 AM EDT eCW1 ([facility]) Nystatin 100 UNT/MG Topical Powder 11/23/2020 12:00:00 AM EDT eCW1 ([facility]) Nystatin 100 UNT/MG Topical Powder 11/23/2020 12:00:00 AM EDT eCW1 ([facility]) Nystatin 100 UNT/MG Topical Powder 11/23/2020 12:00:00 AM EDT eCW1 ([facility]) Nystatin 100 UNT/MG Topical Powder 11/23/2020 12:00:00 AM EDT eCW1 ([facility]) Nystatin 100 UNT/MG Topical Powder 11/23/2020 12:00:00 AM EDT eCW1 ([facility]) Nystatin 100 UNT/MG Topical Powder 11/23/2020 12:00:00 AM EDT eCW1 ([facility]) Nystatin 100 UNT/MG Topical Powder 11/23/2020 12:00:00 AM EDT eCW1 ([facility]) Fluconazole 150 MG Oral Tablet 11/21/2020 12:00:00 AM EDT eCW1 ([facility]) Nystatin 100 UNT/MG Topical Powder 11/21/2020 12:00:00 AM EDT eCW1 ([facility]) Fluconazole 150 MG Oral Tablet 11/21/2020 12:00:00 AM EDT eCW1 ([facility]) Nystatin 100 UNT/MG Topical Powder 11/21/2020 12:00:00 AM EDT eCW1 ([facility]) Fluconazole 150 MG Oral Tablet 11/21/2020 12:00:00 AM EDT eCW1 ([facility]) Nystatin 100 UNT/MG Topical Powder 11/21/2020 12:00:00 AM EDT eCW1 ([facility]) Fluconazole 150 MG Oral Tablet 11/21/2020 12:00:00 AM EDT eCW1 ([facility]) Nystatin 100 UNT/MG Topical Powder 11/21/2020 12:00:00 AM EDT eCW1 ([facility]) Fluconazole 150 MG Oral Tablet 11/21/2020 12:00:00 AM EDT eCW1 ([facility]) Nystatin 100 UNT/MG Topical Powder 11/21/2020 12:00:00 AM EDT eCW1 ([facility]) Nystatin 100 UNT/MG Topical Powder 11/21/2020 12:00:00 AM EDT eCW1 ([facility]) Fluconazole 150 MG Oral Tablet 11/21/2020 12:00:00 AM EDT eCW1 ([facility]) Nystatin 100 UNT/MG Topical Powder 11/21/2020 12:00:00 AM EDT eCW1 ([facility]) Fluconazole 150 MG Oral Tablet 11/21/2020 12:00:00 AM EDT eCW1 ([facility]) Nystatin 100 UNT/MG Topical Powder 11/21/2020 12:00:00 AM EDT eCW1 ([facility]) Fluconazole 150 MG Oral Tablet 11/21/2020 12:00:00 AM EDT eCW1 ([facility]) Nystatin 100 UNT/MG Topical Powder 11/21/2020 12:00:00 AM EDT eCW1 ([facility]) Fluconazole 150 MG Oral Tablet 11/21/2020 12:00:00 AM EDT eCW1 ([facility]) Nystatin 100 UNT/MG Topical Powder 11/21/2020 12:00:00 AM EDT eCW1 ([facility]) Fluconazole 150 MG Oral Tablet 11/21/2020 12:00:00 AM EDT eCW1 ([facility]) Fluconazole 150 MG Oral Tablet 11/21/2020 12:00:00 AM EDT eCW1 ([facility]) Nystatin 100 UNT/MG Topical Powder 11/21/2020 12:00:00 AM EDT eCW1 ([facility]) Fluconazole 150 MG Oral Tablet 11/21/2020 12:00:00 AM EDT eCW1 ([facility]) Nystatin 100 UNT/MG Topical Powder 11/21/2020 12:00:00 AM EDT eCW1 ([facility]) Fluconazole 150 MG Oral Tablet 11/21/2020 12:00:00 AM EDT eCW1 ([facility]) Nystatin 100 UNT/MG Topical Powder 11/21/2020 12:00:00 AM EDT eCW1 ([facility]) Test Strips - 11/15/2020 12:00:00 AM EDT eCW1 ([facility]) Test Strips - 11/15/2020 12:00:00 AM EDT eCW1 ([facility]) Test Strips - 11/15/2020 12:00:00 AM EDT eCW1 ([facility]) Test Strips - 11/15/2020 12:00:00 AM EDT eCW1 ([facility]) Test Strips - 11/15/2020 12:00:00 AM EDT eCW1 ([facility]) Test Strips - 11/15/2020 12:00:00 AM EDT eCW1 ([facility]) Test Strips - 11/15/2020 12:00:00 AM EDT eCW1 ([facility]) Test Strips - 11/15/2020 12:00:00 AM EDT eCW1 ([facility]) Test Strips - 11/15/2020 12:00:00 AM EDT eCW1 ([facility]) Test Strips - 11/15/2020 12:00:00 AM EDT eCW1 ([facility]) Test Strips - 11/15/2020 12:00:00 AM EDT eCW1 ([facility]) Test Strips - 11/15/2020 12:00:00 AM EDT eCW1 ([facility]) Test Strips - 11/15/2020 12:00:00 AM EDT eCW1 ([facility]) Test Strips - 11/15/2020 12:00:00 AM EDT eCW1 ([facility]) Test Strips - 11/15/2020 12:00:00 AM EDT eCW1 ([facility]) Test Strips - 11/15/2020 12:00:00 AM EDT eCW1 ([facility]) Test Strips - 11/15/2020 12:00:00 AM EDT eCW1 ([facility]) Levothyroxine Sodium 0.025 MG Oral Tablet 11/08/2020 12:00:00 AM ED T eCW1 ([facility]) Famotidine 20 MG Oral Tablet 06/22/2020 12:00:00 AM EST eCW1 ([facility])
[2021-03-12 10:47] LABS: BASO # 0.1 10^3/uL (0.0-0.2); BASO % 0.4 % (0.0-1.0); EOS % 0.2 % (0.0-3.0); HEMATOCRIT 41.5 % (36.0-47.0); LYMPH # 0.6 10^3/uL (1.5-5.0); LYMPH % 3.9 % (24.0-44.0); MEAN CORPUSCULAR HEMOGLOBIN 32.1 pg (27.0-33.0); MEAN CORPUSCULAR HGB CONC 31.3 g/dl (32.0-36.5); MEAN CORPUSCULAR VOLUME 102.5 fl (80.0-96.0); MONO # 0.9 10^3/uL (0.0-0.8); MONO % 5.5 % (2.0-8.0); NEUTROPHILS # 14.6 10^3/uL (1.5-8.5); NEUTROPHILS % 89.4 % (36.0-66.0); PLATELET COUNT, AUTOMATED 222 10^3/uL (150-450); RED BLOOD COUNT 4.05 10^6/uL (4.00-5.40); WHITE BLOOD COUNT 16.3 10^3/uL (4.0-10.0)
--- NOTE | 2021-03-12 10:59 | REP ---
INDICATION: expressive aphasia. COMPARISON: 01/31/2021 TECHNIQUE: Noncontrast images through the brain with coronal reconstructions provided FINDINGS: Lateral ventricles are midline symmetric and dilated in proportion to the diffuse cerebral atrophy. This is unchanged. Basal ganglia are symmetric. There is heterogeneous low-attenuation white matter change bilaterally in the periventricular, deep central and some subcortical white matters regions. I do not see evidence of a new lacunar infarct, vascular territory infarct, mass, mass effect, edema or intracranial hemorrhage. There is a lacunar infarct in the right thalamus, unchanged. Atrophy is greatest in the temporal lobes. The brainstem is intact cerebellum shows atrophy but no posterior fossa bleed is evident. No mass. Bone windows show mastoid aeration and visualized sinuses clear. Atherosclerotic calcifications in the carotid siphons noted. Skull base and calvarium show no fracture or focal lesion. IMPRESSION: 1. Ventriculomegaly and cortical atrophy proportionate and unchanged. 2. Chronic small vessel white matter ischemic changes, stable. 3. Old lacunar infarct right thalamus and no new lacunar infarct, intracranial hemorrhage, vascular territory infarct, mass or mass effect. 4. Skull base and calvarium without fracture or focal lesion in the visualized sinuses and mastoids clear. <Electronically signed by Ryan Louis > 03/12/21 [id number]
[2021-03-12] MEDS ORDERED: cefTRIAXone SOD 2 GM in D5W MINI-BAG PLUS 50 ML IV ONE (11:30)
[2021-03-12] MEDS ORDERED: NS 2,100 ML in IV 1 EA IV ONE (11:30)
[2021-03-12 11:32] LABS: ALBUMIN 3.4 GM/DL (3.2-5.2); ALT/SGPT 36 U/L (12-78); BILIRUBIN,DIRECT 0.3 MG/DL (0.0-0.2); BILIRUBIN,TOTAL 1.2 MG/DL (0.2-1.0); BLOOD UREA NITROGEN 46 MG/DL (7-18); CALCIUM LEVEL 9.7 MG/DL (8.8-10.2); CARBON DIOXIDE LEVEL 18 MEQ/L (21-32); CHLORIDE LEVEL 111 MEQ/L (98-107); CK-MB VALUE MASS 3.1 NG/ML (<3.6); CPK CREATINE PHOSPHOKINASE 1292 U/L (26-192); CREATININE FOR GFR 1.89 MG/DL (0.55-1.30); GLOMERULAR FILTRATION RATE 28.2 (>45); GLUCOSE, FASTING 342 MG/DL (70-100); MB/CK RELATIVE INDEX 0.24 (< OR =4); POTASSIUM SERUM 4.8 MEQ/L (3.5-5.1); SODIUM LEVEL 144 MEQ/L (136-145); TOTAL PROTEIN 7.1 GM/DL (6.4-8.2); TROPONIN I < 0.02 NG/ML (< 0.10)
--- OUTSIDE RECORDS SUMMARY | 2021-03-12 11:33 | CCD ---
Author Author [facility] Organization [facility] Address Unknown Phone Unavailable Care Team Providers Care Decorating Inspector Name Role Phone NO, PCP Unavailable Unavailable [...] is protected by Article 27-F of the [facility] Public Health law. If you continue you may have access to information: Regarding HIV / AIDS; Provided by facilities licensed or operated by the [facility] Office of Mental Health; or Provided by the [facility] Office for People With Developmental Disabilities. If such information is present, then the following [facility] mandated warning applies: This information has been [...] law may result in a fine or detention sentence or both. A general authorization for the release of medical or other information is NOT sufficient authorization for further disc losure. Allergies and Adverse Reactions Type Description Substance Reaction Status Data Source(s ) Propensity to adverse reactions Morphine Sulfate Morphine Confusion Active eCW1 ([facility]) No Known Environmental Allergies No Known Environmental Al [facility] No Known Food Allergies No Known Food Allergies [facility] Propensity to adverse reactions OXYCODONE HCL-ACETAMINOPHEN OXYCODONE HCL-ACETAMINOPHEN UNKNOWN [facility] Family History Family Member Name Family Member Gender Family Member Status Date o f Status Description Data Source(s) Unknown Female Problem MEDENT ([facility]) Unknown Female Problem MEDENT ([facility]) Encounters Encounter Providers Location Date Indications Data Source(s ) [place] [address] [facility] [address] 03/06/2021 12:00:00 AM EDT eCW1 ([facility]) [place] [address] [facility] [address] 02/13/2021 12:00:00 AM EDT eCW1 ([facility]) [place] [address] [facility] [address] 02/05/2021 12:00:00 AM EDT eCW1 ([facility]) [place] [address] [facility] [address] 01/31/2021 12:00:00 AM EDT eCW1 ([facility]) OFFICE OUTPATIENT VISIT 15 MINUTES Attender: JIGAR GATICA Phys ical Therapy 12/14/2020 02:00:00 PM EDT MEDENT ([facility]) [place] [address] [facility] [address] 12/11/2020 12:00:00 AM EDT eCW1 ([facility]) Out[place] [address] [facility] [address] 11/28/2020 12:00:00 AM EDT eCW1 ([facility]) [place] [address] [facility] [address] 11/24/2020 12:00:00 AM EDT eCW1 ([facility]) [place] [address] [facility] [address] 11/24/2020 12:00:00 AM EDT eCW1 ([facility]) [place] [address] [facility] [address] 11/24/2020 12:00:00 AM EDT eCW1 ([facility]) [place] [address] [facility] [address] 11/24/2020 12:00:00 AM EDT eCW1 ([facility]) [place] [address] [facility] [address] 11/24/2020 12:00:00 AM EDT eCW1 ([facility]) [place] [address] [facility] [address] 11/24/2020 12:00:00 AM EDT eCW1 ([facility]) [place] [address] [facility] [address] 11/23/2020 12:00:00 AM EDT eCW1 ([facility]) [place] [address] [facility] [address] 11/23/2020 12:00:00 AM EDT eCW1 ([facility]) [place] [address] [facility] [address] 11/22/2020 12:00:00 AM EDT eCW1 ([facility]) [place] [address] [facility] [address] 11/22/2020 12:00:00 AM EDT eCW1 ([facility]) [place] [address] [facility] [address] 11/21/2020 12:00:00 AM EDT eCW1 ([facility]) [place] [address] [facility] [address] 11/20/2020 12:00:00 AM EDT eCW1 ([facility]) [place] [address] [facility] [address] 11/17/2020 12:00:00 AM EDT eCW1 ([facility]) [place] [address] [facility] [address] 11/15/2020 12:00:00 AM EDT eCW1 ([facility]) [place] [address] [facility] [address] 11/14/2020 12:00:00 AM EDT eCW1 ([facility]) [place] [address] [facility] [address] 11/14/2020 12:00:00 AM EDT eCW1 ([facility]) [place] [address] [facility] [address] 11/13/2020 12:00:00 AM EDT eCW1 ([facility]) Outpatient [address] [facility] [address] 11/09/2020 12:00:00 AM EDT eCW1 ([facility]) [place] [address] [facility] [address] 10/27/2020 12:00:00 AM EDT eCW1 ([facility]) Out[place] [address] [facility] [address] 10/05/2020 12:00:00 AM EDT eCW1 ([facility]) Outpatient Attender: Norma Asher MDConsultant: PCP NO 07/12/2020 07:15:00 AM EST - 07/12/2020 09:08:00 AM EST [facility] Patient discharged. [place] [address] [facility] [address] 06/26/2020 12:00:00 AM EST eCW1 ([facility]) Out[place] [address] [facility] [address] 06/22/2020 12:00:00 AM EST eCW1 ([facility]) Unknown [address] [facility] [address] 06/06/2020 12:00:00 AM EST eCW1 ([facility]) [place] [address] [facility] [address] 06/06/2020 12:00:00 AM EST eCW1 ([facility]) [place] [address] [facility] [address] 05/26/2020 12:00:00 AM EST eCW1 ([facility]) Outpatient Attender: Norma Asher MDConsultant: PCP NO 05/17/2020 09:00:00 AM EST - 05/17/2020 12:25:00 PM EST [facility] Patient discharged. [place] [address] [facility] [address] 05/15/2020 12:00:00 AM EST eCW1 ([facility]) Outpatient Attender: Norma Asher MDConsultant: PCP NO 05/10/2020 08:18:02 AM EST - 05/10/2020 09:40:00 AM EST [facility] Patient discharged. Outpatient Attender: CHAN [email or web address] 12:00:00 AM EDT - 02/04/2020 11:56:35 AM EDT [facility] Immunizations Vaccine Date Status Description Data Source(s) Moderna #2 dose COVID-19(given elsewhere) SARSCOV2 VAC 100MCG/0.5ML IM 08/16/2020 01:15:00 PM EDT completed eCW1 ([facility]) Moderna #2 dose COVID-19(given elsewhere) SARSCOV2 VAC 100MCG/0.5ML IM 08/16/2020 01:15:00 PM EDT completed eCW1 ([facility]) Moderna #2 dose COVID-19(given elsewhere) SARSCOV2 VAC 100MCG/0.5ML IM 08/16/2020 01:15:00 PM EDT completed eCW1 ([facility]) Moderna #2 dose COVID-19(given elsewhere) SARSCOV2 VAC 100MCG/0.5ML IM 08/16/2020 01:15:00 PM EDT completed eCW1 ([facility]) Moderna #2 dose COVID-19(given elsewhere) SARSCOV2 VAC 100MCG/0.5ML IM 08/16/2020 01:15:00 PM EDT completed eCW1 ([facility]) Moderna #2 dose COVID-19(given elsewhere) SARSCOV2 VAC 100MCG/0.5ML IM 08/16/2020 01:15:00 PM EDT completed eCW1 ([facility]) Moderna #2 dose COVID-19(given elsewhere) SARSCOV2 VAC 100MCG/0.5ML IM 08/16/2020 01:15:00 PM EDT completed eCW1 ([facility]) Moderna #2 dose COVID-19(given elsewhere) SARSCOV2 VAC 100MCG/0.5ML IM 08/16/2020 01:15:00 PM EDT completed eCW1 ([facility]) Moderna #2 dose COVID-19(given elsewhere) SARSCOV2 VAC 100MCG/0.5ML IM 08/16/2020 01:15:00 PM EDT completed eCW1 ([facility]) Moderna #2 dose COVID-19(given elsewhere) SARSCOV2 VAC 100MCG/0.5ML IM 08/16/2020 01:15:00 PM EDT completed eCW1 ([facility]) Moderna #2 dose COVID-19(given elsewhere) SARSCOV2 VAC 100MCG/0.5ML IM 08/16/2020 01:15:00 PM EDT completed eCW1 ([facility]) Moderna #2 dose COVID-19(given elsewhere) SARSCOV2 VAC 100MCG/0.5ML IM 08/16/2020 01:15:00 PM EDT completed eCW1 ([facility]) Moderna #2 dose COVID-19(given elsewhere) SARSCOV2 VAC 100MCG/0.5ML IM 08/16/2020 01:15:00 PM EDT completed eCW1 ([facility]) Moderna #2 dose COVID-19(given elsewhere) SARSCOV2 VAC 100MCG/0.5ML IM 08/16/2020 01:15:00 PM EDT completed eCW1 ([facility]) Moderna #2 dose COVID-19(given elsewhere) SARSCOV2 VAC 100MCG/0.5ML IM 08/16/2020 01:15:00 PM EDT completed eCW1 ([facility]) Moderna #2 dose COVID-19(given elsewhere) SARSCOV2 VAC 100MCG/0.5ML IM 08/16/2020 01:15:00 PM EDT completed eCW1 ([facility]) Moderna #2 dose COVID-19(given elsewhere) SARSCOV2 VAC 100MCG/0.5ML IM 08/16/2020 01:15:00 PM EDT completed eCW1 ([facility]) Moderna #2 dose COVID-19(given elsewhere) SARSCOV2 VAC 100MCG/0.5ML IM 08/16/2020 01:15:00 PM EDT completed eCW1 ([facility]) Moderna #2 dose COVID-19(given elsewhere) SARSCOV2 VAC 100MCG/0.5ML IM 08/16/2020 01:15:00 PM EDT completed eCW1 ([facility]) Moderna #2 dose COVID-19(given elsewhere) SARSCOV2 VAC 100MCG/0.5ML IM 08/16/2020 01:15:00 PM EDT completed eCW1 ([facility]) Moderna #2 dose COVID-19(given elsewhere) SARSCOV2 VAC 100MCG/0.5ML IM 08/16/2020 01:15:00 PM EDT completed eCW1 ([facility]) Moderna #2 dose COVID-19(given elsewhere) SARSCOV2 VAC 100MCG/0.5ML IM 08/16/2020 01:15:00 PM EDT completed eCW1 ([facility]) Moderna #2 dose COVID-19 (given elsewhere) SARSCOV2 VA C 100MCG/0.5ML IM 08/16/2020 01:15:00 PM EDT completed eCW1 ([facility]) Moderna #2 dose COVID-19 (given elsewhere) SARSCOV2 VA C 100MCG/0.5ML IM 08/16/2020 01:15:00 PM EDT completed eCW1 ([facility]) Moderna #2 dose COVID-19 (given elsewhere) SARSCOV2 VA C 100MCG/0.5ML IM 08/16/2020 01:15:00 PM EDT completed eCW1 ([facility]) Moderna #2 dose COVID-19(given elsewhere) SARSCOV2 VAC 100MCG/0.5ML IM 08/16/2020 01:15:00 PM EDT completed eCW1 ([facility]) COVID-19 VACCINE Moderna 08/16/2020 12:00:00 AM EDT completed [facility] Vaccine Series Complete: YESThis Data wa s Submitted to [facility] Via [employer]. COVID-19 VACCINE Moderna 07/19/2020 12:00:00 AM EDT completed [facility] Vaccine Series Complete: NOThis Data was Submitted to [facility] Via [employer]. Moderna #1 dose COVID-19(given elsewhere) SARSCOV2 VAC 100MCG/0.5ML IM 07/15/2020 01:14:00 PM EST completed eCW1 ([facility]) Moderna #1 dose COVID-19(given elsewhere) SARSCOV2 VAC 100MCG/0.5ML IM 07/15/2020 01:14:00 PM EST completed eCW1 ([facility]) Moderna #1 dose COVID-19(given elsewhere) SARSCOV2 VAC 100MCG/0.5ML IM 07/15/2020 01:14:00 PM EST completed eCW1 ([facility]) Moderna #1 dose COVID-19(given elsewhere) SARSCOV2 VAC 100MCG/0.5ML IM 07/15/2020 01:14:00 PM EST completed eCW1 ([facility]) Moderna #1 dose COVID-19(given elsewhere) SARSCOV2 VAC 100MCG/0.5ML IM 07/15/2020 01:14:00 PM EST completed eCW1 ([facility]) Moderna #1 dose COVID-19(given elsewhere) SARSCOV2 VAC 100MCG/0.5ML IM 07/15/2020 01:14:00 PM EST completed eCW1 ([facility]) Moderna #1 dose COVID-19(given elsewhere) SARSCOV2 VAC 100MCG/0.5ML IM 07/15/2020 01:14:00 PM EST completed eCW1 ([facility]) Moderna #1 dose COVID-19(given elsewhere) SARSCOV2 VAC 100MCG/0.5ML IM 07/15/2020 01:14:00 PM EST completed eCW1 ([facility]) Moderna #1 dose COVID-19(given elsewhere) SARSCOV2 VAC 100MCG/0.5ML IM 07/15/2020 01:14:00 PM EST completed eCW1 ([facility]) Moderna #1 dose COVID-19(given elsewhere) SARSCOV2 VAC 100MCG/0.5ML IM 07/15/2020 01:14:00 PM EST completed eCW1 ([facility]) Moderna #1 dose COVID-19(given elsewhere) SARSCOV2 VAC 100MCG/0.5ML IM 07/15/2020 01:14:00 PM EST completed eCW1 ([facility]) Moderna #1 dose COVID-19(given elsewhere) SARSCOV2 VAC 100MCG/0.5ML IM 07/15/2020 01:14:00 PM EST completed eCW1 ([facility]) Moderna #1 dose COVID-19(given elsewhere) SARSCOV2 VAC 100MCG/0.5ML IM 07/15/2020 01:14:00 PM EST completed eCW1 ([facility]) Moderna #1 dose COVID-19(given elsewhere) SARSCOV2 VAC 100MCG/0.5ML IM 07/15/2020 01:14:00 PM EST completed eCW1 ([facility]) Moderna #1 dose COVID-19(given elsewhere) SARSCOV2 VAC 100MCG/0.5ML IM 07/15/2020 01:14:00 PM EST completed eCW1 ([facility]) Moderna #1 dose COVID-19(given elsewhere) SARSCOV2 VAC 100MCG/0.5ML IM 07/15/2020 01:14:00 PM EST completed eCW1 ([facility]) Moderna #1 dose COVID-19(given elsewhere) SARSCOV2 VAC 100MCG/0.5ML IM 07/15/2020 01:14:00 PM EST completed eCW1 ([facility]) Moderna #1 dose COVID-19(given elsewhere) SARSCOV2 VAC 100MCG/0.5ML IM 07/15/2020 01:14:00 PM EST completed eCW1 ([facility]) Moderna #1 dose COVID-19(given elsewhere) SARSCOV2 VAC 100MCG/0.5ML IM 07/15/2020 01:14:00 PM EST completed eCW1 ([facility]) Moderna #1 dose COVID-19(given elsewhere) SARSCOV2 VAC 100MCG/0.5ML IM 07/15/2020 01:14:00 PM EST completed eCW1 ([facility]) Moderna #1 dose COVID-19(given elsewhere) SARSCOV2 VAC 100MCG/0.5ML IM 07/15/2020 01:14:00 PM EST completed eCW1 ([facility]) Moderna #1 dose COVID-19(given elsewhere) SARSCOV2 VAC 100MCG/0.5ML IM 07/15/2020 01:14:00 PM EST completed eCW1 ([facility]) Moderna #1 dose COVID-19 (given elsewhere) SARSCOV2 VA C 100MCG/0.5ML IM 07/15/2020 01:14:00 PM EST completed eCW1 ([facility]) Moderna #1 dose COVID-19 (given elsewhere) SARSCOV2 VA C 100MCG/0.5ML IM 07/15/2020 01:14:00 PM EST completed eCW1 ([facility]) Moderna #1 dose COVID-19 (given elsewhere) SARSCOV2 VA C 100MCG/0.5ML IM 07/15/2020 01:14:00 PM EST completed eCW1 ([facility]) Moderna #1 dose COVID-19(given elsewhere) SARSCOV2 VAC 100MCG/0.5ML IM 07/15/2020 01:14:00 PM EST completed eCW1 ([facility]) influenza, recombinant, quadrIvalent,injectable, prese rvative free 01/27/2020 01:54:00 PM EDT completed eCW1 ([facility]) influenza, recombinant, quadrIvalent,injectable, prese rvative free 01/27/2020 01:54:00 PM EDT completed eCW1 ([facility]) influenza, recombinant, quadrIvalent,injectable, prese rvative free 01/27/2020 01:54:00 PM EDT completed eCW1 ([facility]) influenza, recombinant, quadrIvalent,injectable, prese rvative free 01/27/2020 01:54:00 PM EDT completed eCW1 ([facility]) influenza, recombinant, quadrIvalent,injectable, prese rvative free 01/27/2020 01:54:00 PM EDT completed eCW1 ([facility]) influenza, recombinant, quadrIvalent,injectable, prese rvative free 01/27/2020 01:54:00 PM EDT completed eCW1 ([facility]) influenza, recombinant, quadrIvalent,injectable, prese rvative free 01/27/2020 01:54:00 PM EDT completed eCW1 ([facility]) influenza, recombinant, quadrIvalent,injectable, prese rvative free 01/27/2020 01:54:00 PM EDT completed eCW1 ([facility]) influenza, recombinant, quadrIvalent,injectable, prese rvative free 01/27/2020 01:54:00 PM EDT completed eCW1 ([facility]) influenza, recombinant, quadrIvalent,injectable, prese rvative free 01/27/2020 01:54:00 PM EDT completed eCW1 ([facility]) influenza, recombinant, quadrIvalent,injectable, prese rvative free 01/27/2020 01:54:00 PM EDT completed eCW1 ([facility]) influenza, recombinant, quadrIvalent,injectable, prese rvative free 01/27/2020 01:54:00 PM EDT completed eCW1 ([facility]) influenza, recombinant, quadrIvalent,injectable, prese rvative free 01/27/2020 01:54:00 PM EDT completed eCW1 ([facility]) influenza, recombinant, quadrIvalent,injectable, prese rvative free 01/27/2020 01:54:00 PM EDT completed eCW1 ([facility]) influenza, recombinant, quadrIvalent,injectable, prese rvative free 01/27/2020 01:54:00 PM EDT completed eCW1 ([facility]) influenza, recombinant, quadrIvalent,injectable, prese rvative free 01/27/2020 01:54:00 PM EDT completed eCW1 ([facility]) influenza, recombinant, quadrIvalent,injectable, prese rvative free 01/27/2020 01:54:00 PM EDT completed eCW1 ([facility]) influenza, recombinant, quadrIvalent,injectable, prese rvative free 01/27/2020 01:54:00 PM EDT completed eCW1 ([facility]) influenza, recombinant, quadrIvalent,injectable, prese rvative free 01/27/2020 01:54:00 PM EDT completed eCW1 ([facility]) influenza, recombinant, quadrIvalent,injectable, prese rvative free 01/27/2020 01:54:00 PM EDT completed eCW1 ([facility]) influenza, recombinant, quadrIvalent,injectable, prese rvative free 01/27/2020 01:54:00 PM EDT completed eCW1 ([facility]) influenza, recombinant, quadrIvalent,injectable, prese rvative free 01/27/2020 01:54:00 PM EDT completed eCW1 ([facility]) influenza, recombinant, quadrIvalent,injectable, prese rvative free 01/27/2020 01:54:00 PM EDT completed eCW1 ([facility]) influenza, recombinant, quadrIvalent,injectable, prese rvative free 01/27/2020 01:54:00 PM EDT completed eCW1 ([facility]) influenza, recombinant, quadrIvalent,injectable, prese rvative free 01/27/2020 01:54:00 PM EDT completed eCW1 ([facility]) influenza, recombinant, quadrIvalent,injectable, prese rvative free 01/27/2020 01:54:00 PM EDT completed eCW1 ([facility]) influenza, recombinant, quadrIvalent,injectable, prese rvative free 01/27/2020 01:54:00 PM EDT completed eCW1 ([facility]) Medications Medication Brand Name Start Date Product [...] { tablet} active Cyanocobalamin 1000 MCG eCW1 ([facility]) Acetaminophen 325 MG Oral Tablet Acetaminophen 325 MG 2020 12:00:00 AM EDT 1.0 {tablet_as_needed} active A cetaminophen 325 MG eCW1 ([facility]) meloxicam 7.5 MG Oral Tablet Meloxicam 7.5 MG Meloxicam 7.5 MG 02/02/2021 12:00:00 AM EDT 1.0 {tablet} active Me loxicam 7.5 MG eCW1 ([facility]) Cyanocobalamin 1000 MCG UNK 02/02/2021 12:00:00 AM EDT 1.0 { tablet} active Cyanocobalamin 1000 MCG eCW1 ([facility]) 12 HR Acetazolamide 500 MG Extended Rele ase Oral Capsule acetaZOLAMIDE ER 500 MG acetaZOLAMIDE ER 500 MG 02/02/2021 12:00:00 AM EDT 1.0 {capsule} active acetaZOLAMIDE ER 500 MG eCW1 ([facility]) BLOOD-GLUCOSE METER 02/02/2021 12:00:00 AM EDT mis 1 USE DIRECTED USE DIRECTED SOLD: 02/04/2021 [facility] meloxicam 7.5 MG Oral Tablet Meloxicam 7.5 MG Meloxicam 7.5 MG 02/02/2021 12:00:00 AM EDT 1.0 {tablet} active Me loxicam 7.5 MG eCW1 ([facility]) Polymyxin B 37103 UNT/ML / Trimethoprim 1 MG/ML Ophthalmic Solution Polymyxin B- Trimethoprim 12439-3.1 UNIT/ML Polymyxin B-Trimethoprim 20822-6.1 UNIT/ML 02/02/2021 12:00:00 AM EDT active Polymyxin B-Trimethoprim 71534- 0.1 UNIT/ML eCW1 ([facility]) Combivent Respimat 20-100 mcg/act UNK 02/02/2021 12:00:00 AM EDT 1.0 {puff} active Combivent Respimat 20-100 mcg/act eCW1 ([facility]) Cyanocobalamin 1000 MCG UNK 02/02/2021 12:00:00 AM EDT 1.0 { tablet} active Cyanocobalamin 1000 MCG eCW1 ([facility]) Combivent Respimat 20-100 mcg/act UNK 02/02/2021 12:00:00 AM EDT 1.0 {puff} active Combivent Respimat 20-100 mcg/act eCW1 ([facility]) Acetaminophen 325 MG Oral Tablet Acetaminophen 325 MG 2020 12:00:00 AM EDT 1.0 {tablet_as_needed} active A cetaminophen 325 MG eCW1 ([facility]) 12 HR Acetazolamide 500 MG Extended Rele ase Oral Capsule acetaZOLAMIDE ER 500 MG acetaZOLAMIDE ER 500 MG 02/02/2021 12:00:00 AM EDT 1.0 {capsule} active acetaZOLAMIDE ER 500 MG eCW1 ([facility]) 12 HR Acetazolamide 500 MG Extended Rele ase Oral Capsule acetaZOLAMIDE ER 500 MG acetaZOLAMIDE ER 500 MG 02/02/2021 12:00:00 AM EDT 1.0 {capsule} active acetaZOLAMIDE ER 500 MG eCW1 ([facility]) 12 HR Acetazolamide 500 MG Extended Rele ase Oral Capsule acetaZOLAMIDE ER 500 MG acetaZOLAMIDE ER 500 MG 02/02/2021 12:00:00 AM EDT 1.0 {capsule} active acetaZOLAMIDE ER 500 MG eCW1 ([facility]) meloxicam 7.5 MG Oral Tablet Meloxicam 7.5 MG Meloxicam 7.5 MG 02/02/2021 12:00:00 AM EDT 1.0 {tablet} active Me loxicam 7.5 MG eCW1 ([facility]) Polymyxin B 17118 UNT/ML / Trimethoprim 1 MG/ML Ophthalmic Solution Polymyxin B- Trimethoprim 09940-0.1 UNIT/ML Polymyxin B-Trimethoprim 97046-4.1 UNIT/ML 02/02/2021 12:00:00 AM EDT active Polymyxin B-Trimethoprim 77069- 0.1 UNIT/ML eCW1 ([facility]) Polymyxin B 60344 UNT/ML / Trimethoprim 1 MG/ML Ophthalmic Solution 10,000 unit- 1 mg/mL POLYMYXIN B SULF/TRIMETHOPRIM 02/02/2021 12:00:00 AM EDT drops 1 0 INSTILL 1 DROP IN THE RIGHT EYE SIX TIMES DAILY INSTILL 1 DROP IN THE RIGHT EYE SIX TIMES DAILY SOLD: 02/04/2021 [facility] Combivent Respimat 20-100 mcg/act UNK 02/02/2021 12:00:00 AM EDT 1.0 {puff} active Combivent Respimat 20-100 mcg/act eCW1 ([facility]) Cyanocobalamin 1000 MCG UNK 02/02/2021 12:00:00 AM EDT 1.0 { tablet} active Cyanocobalamin 1000 MCG eCW1 ([facility]) Polymyxin B 00704 UNT/ML / Trimethoprim 1 MG/ML Ophthalmic Solution Polymyxin B- Trimethoprim 23941-1.1 UNIT/ML Polymyxin B-Trimethoprim 28485-2.1 UNIT/ML 02/02/2021 12:00:00 AM EDT active Polymyxin B-Trimethoprim 07172- 0.1 UNIT/ML eCW1 ([facility]) Acetaminophen 325 MG Oral Tablet Acetaminophen 325 MG 2020 12:00:00 AM EDT 1.0 {tablet_as_needed} active A cetaminophen 325 MG eCW1 ([facility]) Combivent Respimat 20-100 mcg/act UNK 02/02/2021 12:00:00 AM EDT 1.0 {puff} active Combivent Respimat 20-100 mcg/act eCW1 ([facility]) Polymyxin B 03744 UNT/ML / Trimethoprim 1 MG/ML Ophthalmic Solution Polymyxin B- Trimethoprim 02076-1.1 UNIT/ML Polymyxin B-Trimethoprim 82106-9.1 UNIT/ML 02/02/2021 12:00:00 AM EDT active Polymyxin B-Trimethoprim 04166- 0.1 UNIT/ML eCW1 ([facility]) meloxicam 7.5 MG Oral Tablet Meloxicam 7.5 MG Meloxicam 7.5 MG 02/02/2021 12:00:00 AM EDT 1.0 {tablet} active Me loxicam 7.5 MG eCW1 ([facility]) Acetaminophen 325 MG Oral Tablet Acetaminophen 325 MG 2020 12:00:00 AM EDT 1.0 {tablet_as_needed} active A cetaminophen 325 MG eCW1 ([facility]) meloxicam 7.5 MG Oral Tablet MELOXICAM 12/15/2020 [...] 12/14/2020 12:00:00 AM EDT ORAL active MEDENT ([facility]) 500 mg 12/09/2020 12:00:00 AM EDT capsule, extended relea se 60 TAKE ONE CAPSULE BY MOUTH TWICE A DAY TAKE ONE CAPSULE BY MOUTH TWICE A DAY SOLD: 12/11/2020 [facility] Insulin Glargine 100 UNIT/ML UNK 11/30/2020 12:00:00 AM EDT active Insulin Glargine 100 UNIT/ML eCW1 ([facility]) Insulin Glargine 100 UNIT/ML UNK 11/30/2020 12:00:00 AM EDT active Insulin Glargine 100 UNIT/ML eCW1 ([facility]) Insulin Glargine 100 UNIT/ML UNK 11/30/2020 12:00:00 AM EDT active Insulin Glargine 100 UNIT/ML eCW1 ([facility]) Insulin Glargine 100 UNIT/ML UNK 11/30/2020 12:00:00 AM EDT active Insulin Glargine 100 UNIT/ML eCW1 ([facility]) Insulin Glargine 100 UNIT/ML UNK 11/30/2020 12:00:00 AM EDT active Insulin Glargine 100 UNIT/ML eCW1 ([facility]) 3 ML Insulin Glargine 100 UNT/ML Pen [...] EDT active Insulin Glargine 100 UNIT/ML eCW1 ([facility]) Insulin Glargine 100 UNIT/ML UNK 11/30/2020 12:00:00 AM EDT active Insulin Glargine 100 UNIT/ML eCW1 ([facility]) Nystatin 100 UNT/MG Topical Powder Nystatin 177340 UNI T/GM Nystatin 861647 UNIT/GM 11/23/2020 12:00:00 AM EDT 1.0 {application} active Nystatin 624417 UNIT/GM eCW1 ([facility]) Nystatin 100 UNT/MG Topical Powder Nystatin 753018 UNI T/GM Nystatin 235899 UNIT/GM 11/23/2020 12:00:00 AM EDT 1.0 {application} active Nystatin 287230 UNIT/GM eCW1 ([facility]) Nystatin 100 UNT/MG Topical Powder Nystatin 985011 UNI T/GM Nystatin 394712 UNIT/GM 11/23/2020 12:00:00 AM EDT 1.0 {application} active Nystatin 968199 UNIT/GM eCW1 ([facility]) Nystatin 100 UNT/MG Topical Powder Nystatin 123155 UNI T/GM Nystatin 978288 UNIT/GM 11/23/2020 12:00:00 AM EDT 1.0 {application} active Nystatin 560858 UNIT/GM eCW1 ([facility]) Nystatin 100 UNT/MG Topical Powder Nystatin 871768 UNI T/GM Nystatin 154788 UNIT/GM 11/23/2020 12:00:00 AM EDT 1.0 {application} active Nystatin 924471 UNIT/GM eCW1 ([facility]) Nystatin 100 UNT/MG Topical Powder 100,000 unit/gram [...] Drugs Nystatin 100 UNT/MG Topical Powder Nystatin 797187 UNI T/GM Nystatin 538509 UNIT/GM 11/23/2020 12:00:00 AM EDT 1.0 {application} active Nystatin 288277 UNIT/GM eCW1 ([facility]) Nystatin 100 UNT/MG Topical Powder Nystatin 006305 UNI T/GM Nystatin 018599 UNIT/GM 11/23/2020 12:00:00 AM EDT 1.0 {application} active Nystatin 710331 UNIT/GM eCW1 ([facility]) Nystatin 100 UNT/MG Topical Powder Nystatin 168732 UNI T/GM Nystatin 939253 UNIT/GM 11/23/2020 12:00:00 AM EDT 1.0 {application} active Nystatin 552492 UNIT/GM eCW1 ([facility]) Nystatin 100 UNT/MG Topical Powder Nystatin 826606 UNI T/GM Nystatin 247895 UNIT/GM 11/23/2020 12:00:00 AM EDT 1.0 {application} active Nystatin 806367 UNIT/GM eCW1 ([facility]) Nystatin 100 UNT/MG Topical Powder Nystatin 457132 UNI T/GM Nystatin 654531 UNIT/GM 11/23/2020 12:00:00 AM EDT 1.0 {application} active Nystatin 824875 UNIT/GM eCW1 ([facility]) Nystatin 100 UNT/MG Topical Powder Nystatin 546496 UNI T/GM Nystatin 649151 UNIT/GM 11/23/2020 12:00:00 AM EDT 1.0 {application} active Nystatin 586936 UNIT/GM eCW1 ([facility]) Nystatin 100 UNT/MG Topical Powder Nystatin 054125 UNI T/GM Nystatin 543524 UNIT/GM 11/23/2020 12:00:00 AM EDT 1.0 {application} active Nystatin 818130 UNIT/GM eCW1 ([facility]) Nystatin 100 UNT/MG Topical Powder Nystatin 767144 UNI T/GM Nystatin 338834 UNIT/GM 11/23/2020 12:00:00 AM EDT 1.0 {application} active Nystatin 668046 UNIT/GM eCW1 ([facility]) 150 mg 11/21/2020 12:00:00 AM EDT tablet [...] 1.0 {tablet} active Fluconazole 150 MG eCW1 ([facility]) Nystatin 100 UNT/MG Topical Powder Nystatin 809043 UNI T/GM Nystatin 131572 UNIT/GM 11/21/2020 12:00:00 AM EDT 1.0 {application} active Nystatin 119724 UNIT/GM eCW1 ([facility]) Nystatin 100 UNT/MG Topical Powder Nystatin 841260 UNI T/GM Nystatin 489174 UNIT/GM 11/21/2020 12:00:00 AM EDT 1.0 {application} active Nystatin 296867 UNIT/GM eCW1 ([facility]) Nystatin 100 UNT/MG Topical Powder Nystatin 472423 UNI T/GM Nystatin 275596 UNIT/GM 11/21/2020 12:00:00 AM EDT 1.0 {application} active Nystatin 380226 UNIT/GM eCW1 ([facility]) Nystatin 100 UNT/MG Topical Powder Nystatin 656646 UNI T/GM Nystatin 023691 UNIT/GM 11/21/2020 12:00:00 AM EDT 1.0 {application} active Nystatin 862681 UNIT/GM eCW1 ([facility]) Fluconazole 150 MG Oral Tablet Fluconazole 150 MG 11/21/2020 12:00: 00 AM EDT 1.0 {tablet} active Fluconazole 150 MG eCW1 ([facility]) Nystatin 100 UNT/MG Topical Powder Nystatin 888936 UNI T/GM Nystatin 969980 UNIT/GM 11/21/2020 12:00:00 AM EDT 1.0 {application} active Nystatin 552682 UNIT/GM eCW1 ([facility]) Nystatin 100 UNT/MG Topical Powder Nystatin 872329 UNI T/GM Nystatin 903944 UNIT/GM 11/21/2020 12:00:00 AM EDT 1.0 {application} active Nystatin 730981 UNIT/GM eCW1 ([facility]) Fluconazole 150 MG Oral Tablet Fluconazole 150 MG 11/21/2020 12:00: 00 AM EDT 1.0 {tablet} active Fluconazole 150 MG eCW1 ([facility]) Nystatin 100 UNT/MG Topical Powder Nystatin 184340 UNI T/GM Nystatin 664382 UNIT/GM 11/21/2020 12:00:00 AM EDT 1.0 {application} active Nystatin 878923 UNIT/GM eCW1 ([facility]) Fluconazole 150 MG Oral Tablet Fluconazole 150 MG 11/21/2020 12:00: 00 AM EDT 1.0 {tablet} active Fluconazole 150 MG eCW1 ([facility]) Fluconazole 150 MG Oral Tablet Fluconazole 150 MG 11/21/2020 12:00: 00 AM EDT 1.0 {tablet} active Fluconazole 150 MG eCW1 ([facility]) Fluconazole 150 MG Oral Tablet Fluconazole 150 MG 11/21/2020 12:00: 00 AM EDT 1.0 {tablet} active Fluconazole 150 MG eCW1 ([facility]) Nystatin 100 UNT/MG Topical Powder Nystatin 764273 UNI T/GM Nystatin 766251 UNIT/GM 11/21/2020 12:00:00 AM EDT 1.0 {application} active Nystatin 347161 UNIT/GM eCW1 ([facility]) Fluconazole 150 MG Oral Tablet Fluconazole 150 MG 11/21/2020 12:00: 00 AM EDT 1.0 {tablet} active Fluconazole 150 MG eCW1 ([facility]) Fluconazole 150 MG Oral Tablet Fluconazole 150 MG 11/21/2020 12:00: 00 AM EDT 1.0 {tablet} active Fluconazole 150 MG eCW1 ([facility]) BLOOD-GLUCOSE METER 11/21/2020 12:00:00 AM EDT misc 1 USE DAILY TO TEST BLOOD GLUCOSE USE DAILY TO TEST BLOOD GLUCOSE SOLD: 11/21/2020 [facility] Fluconazole 150 MG Oral Tablet Fluconazole 150 MG 11/21/2020 12:00: 00 AM EDT 1.0 {tablet} active Fluconazole 150 MG eCW1 ([facility]) Nystatin 100 UNT/MG Topical Powder Nystatin 015393 UNI T/GM Nystatin 121611 UNIT/GM 11/21/2020 12:00:00 AM EDT 1.0 {application} active Nystatin 906684 UNIT/GM eCW1 ([facility]) Nystatin 100 UNT/MG Topical Powder Nystatin 269171 UNI T/GM Nystatin 474686 UNIT/GM 11/21/2020 12:00:00 AM EDT 1.0 {application} active Nystatin 238405 UNIT/GM eCW1 ([facility]) Fluconazole 150 MG Oral Tablet Fluconazole 150 MG 11/21/2020 12:00: 00 AM EDT 1.0 {tablet} active Fluconazole 150 MG eCW1 ([facility]) Fluconazole 150 MG Oral Tablet Fluconazole 150 MG 11/21/2020 12:00: 00 AM EDT 1.0 {tablet} active Fluconazole 150 MG eCW1 ([facility]) Fluconazole 150 MG Oral Tablet Fluconazole 150 MG 11/21/2020 12:00: 00 AM EDT 1.0 {tablet} active Fluconazole 150 MG eCW1 ([facility]) Nystatin 100 UNT/MG Topical Powder Nystatin 792766 UNI T/GM Nystatin 939477 UNIT/GM 11/21/2020 12:00:00 AM EDT 1.0 {application} active Nystatin 016436 UNIT/GM eCW1 ([facility]) Nystatin 100 UNT/MG Topical Powder Nystatin 377695 UNI T/GM Nystatin 247393 UNIT/GM 11/21/2020 12:00:00 AM EDT 1.0 {application} active Nystatin 823737 UNIT/GM eCW1 ([facility]) Fluconazole 150 MG Oral Tablet Fluconazole 150 MG 11/21/2020 12:00: 00 AM EDT 1.0 {tablet} active Fluconazole 150 MG eCW1 ([facility]) Nystatin 100 UNT/MG Topical Powder Nystatin 634277 UNI T/GM Nystatin 457075 UNIT/GM 11/21/2020 12:00:00 AM EDT 1.0 {application} active Nystatin 078629 UNIT/GM eCW1 ([facility]) Nystatin 100 UNT/MG Topical Powder Nystatin 900553 UNI T/GM Nystatin 579717 UNIT/GM 11/21/2020 12:00:00 AM EDT 1.0 {application} active Nystatin 094084 UNIT/GM eCW1 ([facility]) Fluconazole 150 MG Oral Tablet Fluconazole 150 MG 11/21/2020 12:00: 00 AM EDT 1.0 {tablet} active Fluconazole 150 MG eCW1 ([facility]) Nystatin 100 UNT/MG Topical Powder Nystatin 317567 UNI T/GM Nystatin 413267 UNIT/GM 11/21/2020 12:00:00 AM EDT 1.0 {application} active Nystatin 871983 UNIT/GM eCW1 ([facility]) Fluconazole 150 MG Oral Tablet Fluconazole 150 MG 11/21/2020 12:00: 00 AM EDT 1.0 {tablet} active Fluconazole 150 MG eCW1 ([facility]) Nystatin 100 UNT/MG Topical Powder Nystatin 755492 UNI T/GM Nystatin 387943 UNIT/GM 11/21/2020 12:00:00 AM EDT 1.0 {application} active Nystatin 379390 UNIT/GM eCW1 ([facility]) Fluconazole 150 MG Oral Tablet Fluconazole 150 MG 11/21/2020 12:00: 00 AM EDT 1.0 {tablet} active Fluconazole 150 MG eCW1 ([facility]) Test Strips - UNK 11/15/2020 12:00:00 AM EDT acti ve Test Strips - eCW1 ([facility]) Test Strips - UNK 11/15/2020 12:00:00 AM EDT acti ve Test Strips - eCW1 ([facility]) Test Strips - UNK 11/15/2020 12:00:00 AM EDT acti ve Test Strips - eCW1 ([facility]) Test Strips - UNK 11/15/2020 12:00:00 AM EDT acti ve Test Strips - eCW1 ([facility]) Test Strips - K 11/15/2020 12:00:00 AM EDT acti ve Test Strips - eCW1 ([facility]) Test Strips - K 11/15/2020 12:00:00 AM EDT acti ve Test Strips - eCW1 ([facility]) Test Strips - [facility] 11/15/2020 12:00:00 AM EDT acti ve Test Strips - eCW1 ([facility]) Test Strips - [facility] 11/15/2020 12:00:00 AM EDT acti ve Test Strips - eCW1 ([facility]) Test Strips - [facility] 11/15/2020 12:00:00 AM EDT acti ve Test Strips - eCW1 ([facility]) Test Strips - [facility] 11/15/2020 12:00:00 AM EDT acti ve Test Strips - eCW1 ([facility]) Test Strips - [facility] 11/15/2020 12:00:00 AM EDT acti ve Test Strips - eCW1 ([facility]) Test Strips - [facility] 11/15/2020 12:00:00 AM EDT acti ve Test Strips - eCW1 ([facility]) Test Strips - [facility] 11/15/2020 12:00:00 AM EDT acti ve Test Strips - eCW1 ([facility]) Test Strips - [facility] 11/15/2020 12:00:00 AM EDT acti ve Test Strips - eCW1 ([facility]) Test Strips - [facility] 11/15/2020 12:00:00 AM EDT acti ve Test Strips - eCW1 ([facility]) Test Strips - [facility] 11/15/2020 12:00:00 AM EDT acti ve Test Strips - eCW1 ([facility]) Test Strips - [facility] 11/15/2020 12:00:00 AM EDT acti ve Test Strips - eCW1 ([facility]) Test Strips - [facility] 11/15/2020 12:00:00 AM EDT acti ve Test Strips - eCW1 ([facility]) Test Strips - UNK 11/15/2020 12:00:00 AM EDT acti ve Test Strips - eCW1 ([facility]) Test Strips - UNK 11/15/2020 12:00:00 AM EDT acti ve Test Strips - eCW1 ([facility]) Test Strips - K 11/15/2020 12:00:00 AM EDT acti ve Test Strips - eCW1 ([facility]) Test Strips - K 11/15/2020 12:00:00 AM EDT acti ve Test Strips - eCW1 ([facility]) Test Strips - [facility] 11/15/2020 12:00:00 AM EDT acti ve Test Strips - eCW1 ([facility]) Test Strips - K 11/15/2020 12:00:00 AM EDT acti ve Test Strips - eCW1 ([facility]) 25 mcg 11/09/2020 12:00:00 AM EDT tablet 15 TAKE ONE-HALF TABLET BY MOUTH EVERY MORNING ON AN EMPTY STOMACH TAKE ONE-HALF TABLET BY MOUTH EVERY MORN ING ON AN EMPTY STOMACH SOLD: 11/11/2020 [facility] Levothyroxine Sodium 0.025 MG Oral Tablet Levothyroxin e Sodium 25 MCG Levothyroxine Sodium 25 MCG 11/08/2020 12:00:00 AM EDT active Levothyroxine Sodium 25 MCG eCW1 ([facility]) Levothyroxine Sodium 0.025 MG Oral Tablet Levothyroxin e Sodium 25 MCG Levothyroxine Sodium 25 MCG 11/08/2020 12:00:00 AM EDT active Levothyroxine Sodium 25 MCG eCW1 ([facility]) Levothyroxine Sodium 0.025 MG Oral Tablet Levothyroxin e Sodium 25 MCG Levothyroxine Sodium 25 MCG 11/08/2020 12:00:00 AM EDT active Levothyroxine Sodium 25 MCG eCW1 ([facility]) Levothyroxine Sodium 0.025 MG Oral Tablet Levothyroxin e Sodium 25 MCG Levothyroxine Sodium 25 MCG 11/08/2020 12:00:00 AM EDT active Levothyroxine Sodium 25 MCG eCW1 ([facility]) Levothyroxine Sodium 0.025 MG Oral Tablet Levothyroxin e Sodium 25 MCG Levothyroxine Sodium 25 MCG 11/08/2020 12:00:00 AM EDT active Levothyroxine Sodium 25 MCG eCW1 ([facility]) Levothyroxine Sodium 0.025 MG Oral Tablet Levothyroxin e Sodium 25 MCG Levothyroxine Sodium 25 MCG 11/08/2020 12:00:00 AM EDT active Levothyroxine Sodium 25 MCG eCW1 ([facility]) Levothyroxine Sodium 0.025 MG Oral Tablet Levothyroxin e Sodium 25 MCG Levothyroxine Sodium 25 MCG 11/08/2020 12:00:00 AM EDT active Levothyroxine Sodium 25 MCG eCW1 ([facility]) Levothyroxine Sodium 0.025 MG Oral Tablet Levothyroxin e Sodium 25 MCG Levothyroxine Sodium 25 MCG 11/08/2020 12:00:00 AM EDT active Levothyroxine Sodium 25 MCG eCW1 ([facility]) Levothyroxine Sodium 0.025 MG Oral Tablet Levothyroxin e Sodium 25 MCG Levothyroxine Sodium 25 MCG 11/08/2020 12:00:00 AM EDT active Levothyroxine Sodium 25 MCG eCW1 ([facility]) Levothyroxine Sodium 0.025 MG Oral Tablet Levothyroxin e Sodium 25 MCG Levothyroxine Sodium 25 MCG 11/08/2020 12:00:00 AM EDT active Levothyroxine Sodium 25 MCG eCW1 ([facility]) Levothyroxine Sodium 0.025 MG Oral Tablet Levothyroxin e Sodium 25 MCG Levothyroxine Sodium 25 MCG 11/08/2020 12:00:00 AM EDT active Levothyroxine Sodium 25 MCG eCW1 ([facility]) Levothyroxine Sodium 0.025 MG Oral Tablet Levothyroxin e Sodium 25 MCG Levothyroxine Sodium 25 MCG 11/08/2020 12:00:00 AM EDT active Levothyroxine Sodium 25 MCG eCW1 ([facility]) Levothyroxine Sodium 0.025 MG Oral Tablet Levothyroxin e Sodium 25 MCG Levothyroxine Sodium 25 MCG 11/08/2020 12:00:00 AM EDT active Levothyroxine Sodium 25 MCG eCW1 ([facility]) Levothyroxine Sodium 0.025 MG Oral Tablet Levothyroxin e Sodium 25 MCG Levothyroxine Sodium 25 MCG 11/08/2020 12:00:00 AM EDT active Levothyroxine Sodium 25 MCG eCW1 ([facility]) Levothyroxine Sodium 0.025 MG Oral Tablet Levothyroxin e Sodium 25 MCG Levothyroxine Sodium 25 MCG 11/08/2020 12:00:00 AM EDT active Levothyroxine Sodium 25 MCG eCW1 ([facility]) Levothyroxine Sodium 0.025 MG Oral Tablet Levothyroxin e Sodium 25 MCG Levothyroxine Sodium 25 MCG 11/08/2020 12:00:00 AM EDT active Levothyroxine Sodium 25 MCG eCW1 ([facility]) Levothyroxine Sodium 0.025 MG Oral Tablet Levothyroxin e Sodium 25 MCG Levothyroxine Sodium 25 MCG 11/08/2020 12:00:00 AM EDT active Levothyroxine Sodium 25 MCG eCW1 ([facility]) Levothyroxine Sodium 0.025 MG Oral Tablet Levothyroxin e Sodium 25 MCG Levothyroxine Sodium 25 MCG 11/08/2020 12:00:00 AM EDT active Levothyroxine Sodium 25 MCG eCW1 ([facility]) Levothyroxine Sodium 0.025 MG Oral Tablet Levothyroxin e Sodium 25 MCG Levothyroxine Sodium 25 MCG 11/08/2020 12:00:00 AM EDT active Levothyroxine Sodium 25 MCG eCW1 ([facility]) Levothyroxine Sodium 0.025 MG Oral Tablet Levothyroxin e Sodium 25 MCG Levothyroxine Sodium 25 MCG 11/08/2020 12:00:00 AM EDT active Levothyroxine Sodium 25 MCG eCW1 ([facility]) Levothyroxine Sodium 0.025 MG Oral Tablet Levothyroxin e Sodium 25 MCG Levothyroxine Sodium 25 MCG 11/08/2020 12:00:00 AM EDT active Levothyroxine Sodium 25 MCG eCW1 ([facility]) Levothyroxine Sodium 0.025 MG Oral Tablet Levothyroxin e Sodium 25 MCG Levothyroxine Sodium 25 MCG 11/08/2020 12:00:00 AM EDT active Levothyroxine Sodium 25 MCG eCW1 ([facility]) Levothyroxine Sodium 0.025 MG Oral Tablet Levothyroxin e Sodium 25 MCG Levothyroxine Sodium 25 MCG 11/08/2020 12:00:00 AM EDT active Levothyroxine Sodium 25 MCG eCW1 ([facility]) Levothyroxine Sodium 0.025 MG Oral Tablet Levothyroxin e Sodium 25 MCG Levothyroxine Sodium 25 MCG 11/08/2020 12:00:00 AM EDT active Levothyroxine Sodium 25 MCG eCW1 ([facility]) Levothyroxine Sodium 0.025 MG Oral Tablet Levothyroxin e Sodium 25 MCG Levothyroxine Sodium 25 MCG 11/08/2020 12:00:00 AM EDT active Levothyroxine Sodium 25 MCG eCW1 ([facility]) Levothyroxine Sodium 0.025 MG Oral Tablet Levothyroxin e Sodium 25 MCG Levothyroxine Sodium 25 MCG 11/08/2020 12:00:00 AM EDT active Levothyroxine Sodium 25 MCG eCW1 ([facility]) NITROFURANTOIN, MACROCRYSTALS 25 MG / Ni trofurantoin, [...] 1.0 {tablet_at_bedtime_as_needed} active Fa motidine 20 MG [facility] ([facility]) Famotidine 20 MG Oral Tablet Famotidine 20 MG 06/22/2020 12:00:00 A M EST 1.0 {tablet_at_bedtime_as_needed} active Fa motidine 20 MG eCW1 ([facility]) Famotidine 20 MG Oral Tablet Famotidine 20 MG 06/22/2020 12:00:00 A M EST 1.0 {tablet_at_bedtime_as_needed} active Fa motidine 20 MG eCW1 ([facility]) Famotidine 20 MG Oral Tablet Famotidine 20 MG 06/22/2020 12:00:00 A M EST 1.0 {tablet_at_bedtime_as_needed} active Fa motidine 20 MG eCW1 ([facility]) Famotidine 20 MG Oral Tablet Famotidine 20 MG 06/22/2020 12:00:00 A M EST 1.0 {tablet_at_bedtime_as_needed} active Fa motidine 20 MG eCW1 ([facility]) Famotidine 20 MG Oral Tablet Famotidine 20 MG 06/22/2020 12:00:00 A M EST 1.0 {tablet_at_bedtime_as_needed} active Fa motidine 20 MG eCW1 ([facility]) Famotidine 20 MG Oral Tablet Famotidine 20 MG 06/22/2020 12:00:00 A M EST 1.0 {tablet_at_bedtime_as_needed} active Fa motidine 20 MG eCW1 ([facility]) Famotidine 20 MG Oral Tablet Famotidine 20 MG 06/22/2020 12:00:00 A M EST 1.0 {tablet_at_bedtime_as_needed} active Fa motidine 20 MG eCW1 ([facility]) Famotidine 20 MG Oral Tablet Famotidine 20 MG 06/22/2020 12:00:00 A M EST 1.0 {tablet_at_bedtime_as_needed} active Fa motidine 20 MG eCW1 ([facility]) Famotidine 20 MG Oral Tablet Famotidine 20 MG 06/22/2020 12:00:00 A M EST 1.0 {tablet_at_bedtime_as_needed} active Fa motidine 20 MG eCW1 ([facility]) Famotidine 20 MG Oral Tablet Famotidine 20 MG 06/22/2020 12:00:00 A M EST 1.0 {tablet_at_bedtime_as_needed} active Fa motidine 20 MG eCW1 ([facility]) Famotidine 20 MG Oral Tablet Famotidine 20 MG 06/22/2020 12:00:00 A M EST 1.0 {tablet_at_bedtime_as_needed} active Fa motidine 20 MG eCW1 ([facility]) Famotidine 20 MG Oral Tablet Famotidine 20 MG 06/22/2020 12:00:00 A M EST 1.0 {tablet_at_bedtime_as_needed} active Fa motidine 20 MG eCW1 ([facility]) Famotidine 20 MG Oral Tablet Famotidine 20 MG 06/22/2020 12:00:00 A M EST 1.0 {tablet_at_bedtime_as_needed} active Fa motidine 20 MG eCW1 ([facility]) Famotidine 20 MG Oral Tablet Famotidine 20 MG 06/22/2020 12:00:00 A M EST 1.0 {tablet_at_bedtime_as_needed} active Fa motidine 20 MG eCW1 ([facility]) Famotidine 20 MG Oral Tablet Famotidine 20 MG 06/22/2020 12:00:00 A M EST 1.0 {tablet_at_bedtime_as_needed} active Fa motidine 20 MG eCW1 ([facility]) Famotidine 20 MG Oral Tablet Famotidine 20 MG 06/22/2020 12:00:00 A M EST 1.0 {tablet_at_bedtime_as_needed} active Fa motidine 20 MG eCW1 ([facility]) Famotidine 20 MG Oral Tablet Famotidine 20 MG 06/22/2020 12:00:00 A M EST 1.0 {tablet_at_bedtime_as_needed} active Fa motidine 20 MG eCW1 ([facility]) Famotidine 20 MG Oral Tablet Famotidine 20 MG 06/22/2020 12:00:00 A M EST 1.0 {tablet_at_bedtime_as_needed} active Fa motidine 20 MG eCW1 ([facility]) Famotidine 20 MG Oral Tablet Famotidine 20 MG 06/22/2020 12:00:00 A M EST 1.0 {tablet_at_bedtime_as_needed} active Fa motidine 20 MG eCW1 ([facility]) Famotidine 20 MG Oral Tablet Famotidine 20 MG 06/22/2020 12:00:00 A M EST 1.0 {tablet_at_bedtime_as_needed} active Fa motidine 20 MG eCW1 ([facility]) Famotidine 20 MG Oral Tablet Famotidine 20 MG 06/22/2020 12:00:00 A M EST 1.0 {tablet_at_bedtime_as_needed} active Fa motidine 20 MG eCW1 ([facility]) Famotidine 20 MG Oral Tablet Famotidine 20 MG 06/22/2020 12:00:00 A M EST 1.0 {tablet_at_bedtime_as_needed} active Fa motidine 20 MG eCW1 ([facility]) Famotidine 20 MG Oral Tablet Famotidine 20 MG 06/22/2020 12:00:00 A M EST 1.0 {tablet_at_bedtime_as_needed} active Fa motidine 20 MG eCW1 ([facility]) Famotidine 20 MG Oral Tablet Famotidine 20 MG 06/22/2020 12:00:00 A M EST 1.0 {tablet_at_bedtime_as_needed} active Fa motidine 20 MG eCW1 ([facility]) Famotidine 20 MG Oral Tablet Famotidine 20 MG 06/22/2020 12:00:00 A M EST 1.0 {tablet_at_bedtime_as_needed} active Fa motidine 20 MG eCW1 ([facility]) Famotidine 20 MG Oral Tablet Famotidine 20 MG 06/22/2020 12:00:00 A M EST 1.0 {tablet_at_bedtime_as_needed} active Fa motidine 20 MG eCW1 ([facility]) Famotidine 20 MG Oral Tablet Famotidine 20 MG 06/22/2020 12:00:00 A M EST 1.0 {tablet_at_bedtime_as_needed} active Fa motidine 20 MG eCW1 ([facility]) Famotidine 20 MG Oral Tablet Famotidine 20 MG 06/22/2020 12:00:00 A M EST 1.0 {tablet_at_bedtime_as_needed} active Fa motidine 20 MG eCW1 ([facility]) 1 mg 06/07/2020 12:00:00 AM EST tablet [...] Plan Information Medicaid [place] Med[place] Part B [id number] Self Medicare [facility] Medigap Part B [id number] Self [id number] Medicare [facility] Medigap Part B [id number] Self [id number] [place] [id number] Self [id number] [place] [id number] Self [id number] [place] [id number] Self [id number] MEDICARE [id number] SP [id number] W [place] [id number] Self [id number] [place] [id number] Self [id number] MEDICARE [id number] [facility] [id number] [place] [id number] Self [id number] [place] [id number] Self [id number] [place] [id number] Self [place] [id number] Self [id number] [place] [id number] Self [id number] [place] [id number] Self [id number] zzMedicaid FFS O [id number] S [id number] Medicaid S [id number] S [id number] Medicare P [id number] S [id number] W Medicaid S [id number] S [id number] Medicaid O [id number] S [id number] Medicare S [id number] S [id number] W [place] MCRO [id number] SP [id number] [facility] Medicare Commercial Dual Complete [id number] Self Dual Complete [place] MCRO [id number] SP [id number] [facility] [employer] P [id number] S [id number] [facility] [employer] P [id number] S [id number] [facility] [employer] P [id number] S [id number] Medicaid [place] Med[place] Part [place] [id number] Self [id number] [facility]) Commercial [id number] Self [place] Part B [id number] Self [facility] ([facility]) Commercial [id number] Self [id number] [facility]) Medigap Part B [id number] Self [id number] Medicaid [place] Med[place] Part B [id number] Self [id number] [place] Medigap Part B [id number] Self [id number] [facility] ([facility]) Medigap Part B [id number] Self [id number] [place] Med[place]ap Part [place] [id number] Self [id number] [facility] ([facility]) Medigap Part B [id number] Self [id number] [place] Med[place] [id number] Self [id number] [facility] ([facility]) Medigap Part B [id number] Self [id number] [place] Med[place] Part [place] [id number] Self [id number] [facility] ([facility]) Medigap Part B [id number] Self [id number] [place] Med[place] [id number] Self [id number] [facility] ([facility]) Commercial [id number] Self [id number] [place] Med[place] Part [place] [id number] Self [id number] [facility] ([facility]) Medigap Part B [id number] Self [id number] [place] Med[place] [id number] Self [id number] [facility] ([facility]) Medigap Part B [id number] Self [id number] [place] Med[place] Part [place] [id number] Self [id number] [facility] ([facility]) Medigap Part B [id number] Self [id number] [place] Med[place] [id number] Self [id number] [facility] ([facility]) Medigap Part B [id number] Self [id number] [place] Med[place] [id number] Self [id number] [facility] ([facility]) Commercial [id number] Self [id number] Medicaid S [id number] S [id number] [facility] Medicare Commercial [id number] Self [id number] [facility] [id number] SP [id number] [employer] MEDICARE [id number] Danielle [id number] [facility] Hmo Commercial [id number] Self [id number] MEDICARE [facility] O [id number] S [id number] [facility] Medicare Medigap Part B [id number] Self [id number] [place]) O [id number] S [id number] [facility] Hmo Commercial .[id number] Self HUMANA HMO [id number] SP [id number] [facility] [id number] SP [id number] HUMANA HMO [id number] SP [id number] MEDICARE [id number] SP [id number] MEDICAID [id number] SP [id number] MEDICARE [id number] SP [id number] [place]([facility]) O [id number] S [id number] MEDICARE C [id number] S [id number] W Medicare Wrap O [id number] S [id number] [place] [id number] SP [id number] [place] MEDICAID [id number] S [id number] HUMANA GOLD O [id number] S [id number] [place] [id number] SP [id number] HUMANA GOLD PLUS -O/P [id number] 18 [id number] MEDICARE [id number] SP [id number] W zzMedicaid FFS O [id number] S [id number] HUMANA GOLD [id number] SP [id number] HUMANA GOLD [id number] SP [id number] [employer] Medicare Medigap Part B [id number] Self [id number] MEDICARE [id number] SP [id number] W MEDICAID [id number] SP [id number] Problems, Conditions, and Diagnoses Code Display Name Description Problem Type Effective Dates Data Source(s) 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 F329 Major depressive disorder, single episod e, unspecified Major depressive disorder, single episode, unspecified Diagnosis 07/12/2020 07:15:00 AM [facility] F419 Anxiety disorder, unspecified Anxiety disorder, unspec ified Diagnosis 07/12/2020 07:15:00 AM [facility] I10 Essential (primary) hypertension Essential (primary) h ypertension Diagnosis 07/12/2020 07:15:00 AM [facility] H2513 Age-related nuclear cataract, bilateral Age-related nuclear cataract, bilateral Diagnosis 07/12/2020 07:15:00 AM [facility] E1136 Type 2 diabetes mellitus with diabetic c ataract Type 2 diabetes mellitus with diabetic cataract Diagnosis 07/12/2020 07:15:00 AM [facility] Z833 Family history of diabetes mellitus Family histo ry of diabetes mellitus Diagnosis 05/17/2020 09:00:00 AM [facility] Z8249 Family history of ischemic h eart disease and other diseases of the circulatory system Family history of ischemic heart disease and other diseases of the circulatory system Diagnosis 05/17/2020 09:00:00 AM [facility] 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 O ther residential (current) drug therapy Diagnosis 05/17/2020 09:00:00 AM [facility] F411 Generalized anxiety disorder Generalized anxiety disor johnathan Diagnosis 05/17/2020 09:00:00 AM [facility] H259 Unspecified age-related cataract Unspecified age -related cataract Diagnosis 05/17/2020 09:00:00 AM [facility] [id number] Encounter for other preprocedural examin ation Encounter for other preprocedural examination Diagnosis 05/10/2020 09:20:00 AM [facility] E66.9 Obesity, unspecified Obesity, unspecified Diagnosis 02/04/2020 11:09:03 AM EDT [facility] R60.9 Edema, unspecified Edema, unspecified Diagnosis 06/2019 11:09:03 AM EDT [facility] E11.9 Type 2 diabetes mellitus without complic ations Type 2 diabetes mellitus without complic Diagnosis 02/04/2020 11:09:03 AM EDT [facility] R94.31 Abnormal electrocardiogram [ECG] [EKG] A bnormal electrocardiogram (ECG) (EKG) Diagnosis 02/04/2020 11:09:03 AM EDT [facility] G47.33 Obstructive sleep apnea (adult) (pediatr ic) Obstructive sleep apnea (adult) (pediatr Diagnosis 02/04/2020 11:09:03 AM EDT [facility] E03.9 Hypothyroidism, unspecified Hypothyroidism, unspecifie d Diagnosis 02/04/2020 11:09:03 AM EDT [facility] J44.9 Chronic obstructive pulmonary disease, u nspecified Chronic obstructive pulmonary disease, u Diagnosis 02/04/2020 11:09:03 AM EDT [facility] I10 Essential (primary) hypertension Essential (primary) h ypertension Diagnosis 02/04/2020 11:09:03 AM EDT [facility] E78.5 Hyperlipidemia, unspecified Hyperlipidemia, unspecifie d Diagnosis 02/04/2020 11:09:03 AM EDT [facility] E03.9 [id number] Hypothyroidism, unspecified type Problem 02/10/2021 12:00:00 AM EDT eCW1 ([facility]) R29.6 [id number] Frequent falls Problem 02/09/2021 12:00:00 A M EDT eCW1 ([facility]) E11.8 [id number] Type 2 diabetes mellitus with complicatio ns Problem 11/30/2020 12:00:00 AM EDT eCW1 ([facility]) N18.4 [id number] Chronic kidney disease, stage 4 (severe) Problem 11/30/2020 12:00:00 AM EDT eCW1 ([facility]) E78.5 Hyperlipidemia Hyperlipidemia, unspecified Problem 10/05/2020 12:00:00 AM EDT eCW1 ([facility]) Z92.241 [id number] History of steroid therapy Problem 12:00:00 AM EDT eCW1 ([facility]) E11.22 [id number] 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 Problem 06/22/2020 12:00:00 AM EST eCW1 (formerly [facility]) G47.00 [id number] Insomnia, unspecified type Problem 12:00:00 AM EST eCW1 ([facility]) G47.9 [id number] Sleep disturbance Problem 06/22/2020 12:00:0 0 AM EST eCW1 ([facility]) H25.11 [id number] Age-related nuclear cataract, right ey e Problem 05/08/2020 12:00:00 AM EST eCW1 ([facility]) E11.21 455143136 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 Problem 03/30/2020 12:00:00 AM EST eCW1 ([facility]) I10 83827039 Hypertension, unspecified type Problem 03/30 12:00:00 AM EST eCW1 ([facility]) F17.200 58036263 Smoker Problem 03/30/2020 12:00:00 AM ES T eCW1 ([facility]) Z90.81 [id number] Asplenia after surgical procedure Problem 03/30/2020 12:00:00 AM EST eCW1 ([facility]) E11.69 [id number] Type 2 diabetes mellitus with ot her specified complication Problem 03/30/2020 12:00:00 AM EST eCW1 (formerly [facility]) Surgeries/Procedures Procedure Description Date Indications Data Source(s) RADEX HAND MINIMUM 3 VIEWS 12/14/2020 12:00:00 AM EDT [facility] ([facility] ) OFFICE OUTPATIENT VISIT 15 MINUTES 12/14/2020 12:00:00 AM EDT [facility] ([facility] ) THERAPEUTIC PX 1/> AREAS EACH 15 MIN EXERCISES 12:00:00 AM EDT [facility] ([facility] ) THERAPEUTIC PX 1/> AREAS EACH 15 MIN EXERCISES 12:00:00 AM EDT [facility] ([facility] ) Results ID Date Data Source [id number] 01/31/2021 05:10:00 PM EDT [facility] Name Value Range Interpretation Code Description Data Anju rce(s) Supporting Document(s) SARS coronavirus 2 RNA [Presence] in Res piratory specimen by HECTOR with probe detection NEGATIVE [facility] This lab was ordered by [facility] a nd reported by [facility]. ID Date Data Source [id number] 12/08/2020 04:45:00 PM EDT [facility] Name Value Range Interpretation Code Description Data Anju rce(s) Supporting Document(s) SARS-CoV-2 (COVID-19) Negative [facility] This lab was ordered by [facility] and reported by [email or web address]. ID Date Data Source [facility] URINALYSIS 11/09/2020 12:00:00 AM EDT eCW1 ([facility]) Name Value Range Interpretation Code Description Data Anju rce(s) Supporting Document(s) UA URINALYSIS eCW1 ([facility]) ID Date Data Source [id number] 07/19/2020 02:01:00 [place] [address] OPERATIVE SUMMARYNAME: MAZIN BENITEZ DATE OF : 1955TTENDING PHYS: Norma Asher MD DATE: 07/12/20 MR#: [id number] OF PROCEDURE: 07/12/20PREOPERATIVE DIAGNOSIS: Cataract, left eye.POSTOPERATIVE DIAGNOSIS: Cataract, left eyePROCEDURE: Phacoemulsification with cataract removal with the help of ORA, IOL lens useAUOOTO 18.5 diopter.SURGEON: Norma Asher MD.CEMENT SPRAYER HELPER: None.INDICATIONS: Decreased vision interfering with daily activities.DETAILS [...] salt solution followed by phacoemulsification in a cywzqr-kjz-guictro methodwithin the capsular bag. Excess cortical material [...] rce(s) Supporting Document(s) ID Date Data Source [id number] 07/07/2020 01:46:00 PM EST [facility] Name Value Range Interpretation Code Description Data Anju rce(s) Supporting Document(s) SARS-CoV-2 (COVID-19) Negative [facility] This lab was ordered by [facility] and reported by [facility]. ID Date Data Source [id number] 06/25/2020 09:05:00 AM EST [facility] Name Value Range Interpretation Code Description Data Anju rce(s) Supporting Document(s) SARS-CoV-2 (COVID 19) NEGATIVE - SARS-CoV-2 (COVID19) [facility] This lab was ordered by [facility] a nd reported by [facility]. ID Date Data Source [id number] 05/25/2020 08:51:00 [place] [address] OPERATIVE SUMMARYNAME: MAZIN BENITEZ DATE OF : 1955TTENDING PHYS: Norma Asher MD DATE: 05/17/20 MR#: [id number] OF PROCEDURE: 05/17/2020REOPERATIVE DIAGNOSIS: Cataract, right eye.POSTOPERATIVE DIAGNOSIS: Cataract, right eyePROCEDURE: Phacoemulsification with intraocular lens implantation with the help of ORA,AUOOTO 18 diopters.SURGEON: Norma Asher MD.CEMENT SPRAYER HELPER: None.COMPLICATIONS: None.INDICATIONS: Decreased vision interfering with daily [...] salt solution followed by phacoemulsification in a tvuhip-zhs-luwxcen methodwithin the capsular bag. Excess cortical material [...] condition.DD: Norma Asher MD 05/25/20 08:27 1 [place] [address] OPERATIVE SUMMARYNAME: MAZIN BENITEZ DATE OF : 3ATTENDING PHYS: Norma Asher MD DATE: 05/17/20 MR#: [id number]: SSR 05/25/20 08:50DS: Norma Asher MD 06/05/20 13:41 2 Name Value Range Interpretation Code Description Data Anju rce(s) Supporting Document(s) ID Date Data Source [id number] 05/12/2020 11:07:00 AM EST [facility] Name Value Range Interpretation Code Description Data Anju rce(s) Supporting Document(s) SARS-CoV-2 (COVID-19) Negative [facility] This lab was ordered by [facility] and reported by [facility]. Procedure Social History Code Duration Value Status Description Data Source(s ) Smoking 03/02/2021 12:00:00 AM EDT Former Smoker completed Former Smoker eCW1 ([facility]) Smoking 02/09/2021 12:00:00 AM EDT Former Smoker completed Former Smoker eCW1 ([facility]) Smoking 02/09/2021 12:00:00 AM EDT Former Smoker completed Former Smoker eCW1 ([facility]) Smoking 01/01/2021 12:00:00 AM EDT Former Smoker completed Former Smoker eCW1 ([facility]) Smoking 01/01/2021 12:00:00 AM EDT Former Smoker completed Former Smoker eCW1 ([facility]) Smoking 11/28/2020 12:00:00 AM EDT Former Smoker completed Former Smoker eCW1 ([facility]) Smoking 11/28/2020 12:00:00 AM EDT Former Smoker completed Former Smoker eCW1 ([facility]) Smoking 11/09/2020 12:00:00 AM EDT Former Smoker completed Former Smoker eCW1 ([facility]) Smoking 11/09/2020 12:00:00 AM EDT Former Smoker completed Former Smoker eCW1 ([facility]) Smoking 11/09/2020 12:00:00 AM EDT Former Smoker completed Former Smoker eCW1 ([facility]) Smoking 11/09/2020 12:00:00 AM EDT Former Smoker completed Former Smoker eCW1 ([facility]) Smoking 11/09/2020 12:00:00 AM EDT Former Smoker completed Former Smoker eCW1 ([facility]) Smoking 11/09/2020 12:00:00 AM EDT Former Smoker completed Former Smoker eCW1 ([facility]) Smoking 11/09/2020 12:00:00 AM EDT Former Smoker completed Former Smoker eCW1 ([facility]) Smoking 11/09/2020 12:00:00 AM EDT Former Smoker completed Former Smoker eCW1 ([facility]) Smoking 11/09/2020 12:00:00 AM EDT Former Smoker completed Former Smoker eCW1 ([facility]) Smoking 11/09/2020 12:00:00 AM EDT Former Smoker completed Former Smoker eCW1 ([facility]) Smoking 11/09/2020 12:00:00 AM EDT Former Smoker completed Former Smoker eCW1 ([facility]) Smoking 11/09/2020 12:00:00 AM EDT Former Smoker completed Former Smoker eCW1 ([facility]) Smoking 11/09/2020 12:00:00 AM EDT Former Smoker completed Former Smoker eCW1 ([facility]) Smoking 11/09/2020 12:00:00 AM EDT Former Smoker completed Former Smoker eCW1 ([facility]) Smoking 11/09/2020 12:00:00 AM EDT Former Smoker completed Former Smoker eCW1 ([facility]) Smoking 11/09/2020 12:00:00 AM EDT Former Smoker completed Former Smoker eCW1 ([facility]) Smoking 11/09/2020 12:00:00 AM EDT Former Smoker completed Former Smoker eCW1 ([facility]) Smoking 11/09/2020 12:00:00 AM EDT Former Smoker completed Former Smoker eCW1 ([facility]) Smoking 11/09/2020 12:00:00 AM EDT Former Smoker completed Former Smoker eCW1 ([facility]) Smoking 10/26/2020 12:00:00 AM EDT Former Smoker completed Former Smoker eCW1 ([facility]) Smoking 07/06/2020 12:00:00 AM EST Former Smoker completed Former Smoker eCW1 ([facility]) Smoking 06/21/2020 12:00:00 AM EST Former Smoker completed Former Smoker eCW1 ([facility]) Smoking 05/22/2020 12:00:00 AM EST Former Smoker completed Former Smoker eCW1 ([facility]) Smoking 05/22/2020 12:00:00 AM EST Former Smoker completed Former Smoker eCW1 ([facility]) Smoking 05/22/2020 12:00:00 AM EST Former Smoker completed Former Smoker eCW1 ([facility]) Smoking 05/08/2020 12:00:00 AM EST Former Smoker completed Former Smoker eCW1 ([facility]) Vital Signs ID Date Data Source UNK Name Value Range Interpretation Code Description Data Source(s) Body temperature 96.9 [degF] 96.9 [degF] [facility] ([facility]) Body height 61.75 [in_i] 61.75 [in_i] [facility] ([facility]) 5'1.75" Body weight 168.12 [lb_av] 168.12 [lb_av] MEDEN T ([facility]) Body mass index (BMI) [Ratio] 31.0 kg/m2 31.0 k g/m2 [facility] ([facility]) Body weight 181.0 [lb_av] 181.0 [lb_av] [facility] Body height 61.75 [in_i] 61.75 [in_i] eCW1 ([facility]) Body mass index (BMI) [Ratio] 33.37 kg/m2 33.37 kg/m2 eCW1 ([facility]) Heart rate 77 /min 77 /min eCW1 ([facility]) Respiratory rate 18 /min 18 /min eCW1 ([facility]) Body temperature 96.9 [degF] 96.9 [degF] eCW1 ( [facility]) Systolic blood pressure 130 mm[Hg] 130 mm[Hg] e CW1 ([facility]) Diastolic blood pressure 70 mm[Hg] 70 mm[Hg] eCW1 ([facility]) Body weight 179.8 [lb_av] 179.8 [lb_av] eCW1 ([facility] Body height 61.75 [in_i] 61.75 [in_i] eCW1 ([facility]) Body mass index (BMI) [Ratio] 33.15 kg/m2 33.15 kg/m2 eCW1 ([facility]) Heart rate 75 /min 75 /min eCW1 ([facility]) Respiratory rate 18 /min 18 /min eCW1 ([facility]) Body temperature 96.1 [degF] 96.1 [degF] eCW1 ( [facility]) Systolic blood pressure 130 mm[Hg] 130 mm[Hg] e CW1 ([facility]) Diastolic blood pressure 80 mm[Hg] 80 mm[Hg] eCW1 ([facility]) Diastolic blood pressure 88 mm[Hg] 88 mm[Hg] eCW1 ([facility]) Body weight 177.6 [lb_av] 177.6 [lb_av] eCW1 ([facility] Body height 61.75 [in_i] 61.75 [in_i] eCW1 ([facility]) Body mass index (BMI) [Ratio] 32.74 kg/m2 32.74 kg/m2 eCW1 ([facility]) Heart rate 78 /min 78 /min eCW1 ([facility]) Respiratory rate 18 /min 18 /min eCW1 ([facility]) Body temperature 97.8 [degF] 97.8 [degF] eCW1 ( [facility]) Systolic blood pressure 130 mm[Hg] 130 mm[Hg] e CW1 ([facility]) Body weight 184.6 [lb_av] 184.6 [lb_av] eCW1 ([facility] Body height 61.75 [in_i] 61.75 [in_i] eCW1 ([facility]) Body mass index (BMI) [Ratio] 34.03 kg/m2 34.03 kg/m2 eCW1 ([facility]) Heart rate 84 /min 84 /min eCW1 ([facility]) Respiratory rate 18 /min 18 /min eCW1 ([facility]) Body temperature 97.1 [degF] 97.1 [degF] eCW1 ( [facility]) Systolic blood pressure 120 mm[Hg] 120 mm[Hg] e CW1 ([facility]) Diastolic blood pressure 74 mm[Hg] 74 mm[Hg] eCW1 ([facility]) ID Date Data Source [id number] 08/16/2020 03:20:59 PM EDT [facility] Name Value Range Interpretation Code Description Data Source(s) WEIGHT RECORDED 184.[address] [facility] Height 60 Inches 060 Inches [facility] ID Date Data Source [id number] 06/05/2020 01:41:52 PM EST [facility] Name Value Range Interpretation Code Description Data Source(s) WEIGHT RECORDED 184.[address] [facility] Height 60 Inches 060 Inches [facility] Patient Treatment Plan of Care Planned Activity Planned Date Details Description Data Source (s) Cyanocobalamin 1000 MCG 02/02/2021 12:00:00 AM EDT eCW1 ([facility]) Insulin Glargine 100 UNIT/ML 11/30/2020 12:00:00 AM EDT eCW1 ([facility]) Insulin Glargine 100 UNIT/ML 11/30/2020 12:00:00 AM EDT eCW1 ([facility]) Nystatin 100 UNT/MG Topical Powder 11/23/2020 12:00:00 AM EDT eCW1 ([facility]) Nystatin 100 UNT/MG Topical Powder 11/23/2020 12:00:00 AM EDT eCW1 ([facility]) Nystatin 100 UNT/MG Topical Powder 11/23/2020 12:00:00 AM EDT eCW1 ([facility]) Nystatin 100 UNT/MG Topical Powder 11/23/2020 12:00:00 AM EDT eCW1 ([facility]) Nystatin 100 UNT/MG Topical Powder 11/23/2020 12:00:00 AM EDT eCW1 ([facility]) Nystatin 100 UNT/MG Topical Powder 11/23/2020 12:00:00 AM EDT eCW1 ([facility]) Nystatin 100 UNT/MG Topical Powder 11/23/2020 12:00:00 AM EDT eCW1 ([facility]) Nystatin 100 UNT/MG Topical Powder 11/23/2020 12:00:00 AM EDT eCW1 ([facility]) Nystatin 100 UNT/MG Topical Powder 11/23/2020 12:00:00 AM EDT eCW1 ([facility]) Nystatin 100 UNT/MG Topical Powder 11/23/2020 12:00:00 AM EDT eCW1 ([facility]) Fluconazole 150 MG Oral Tablet 11/21/2020 12:00:00 AM EDT eCW1 ([facility]) Nystatin 100 UNT/MG Topical Powder 11/21/2020 12:00:00 AM EDT eCW1 ([facility]) Fluconazole 150 MG Oral Tablet 11/21/2020 12:00:00 AM EDT eCW1 ([facility]) Nystatin 100 UNT/MG Topical Powder 11/21/2020 12:00:00 AM EDT eCW1 ([facility]) Fluconazole 150 MG Oral Tablet 11/21/2020 12:00:00 AM EDT eCW1 ([facility]) Nystatin 100 UNT/MG Topical Powder 11/21/2020 12:00:00 AM EDT eCW1 ([facility]) Fluconazole 150 MG Oral Tablet 11/21/2020 12:00:00 AM EDT eCW1 ([facility]) Nystatin 100 UNT/MG Topical Powder 11/21/2020 12:00:00 AM EDT eCW1 ([facility]) Fluconazole 150 MG Oral Tablet 11/21/2020 12:00:00 AM EDT eCW1 ([facility]) Nystatin 100 UNT/MG Topical Powder 11/21/2020 12:00:00 AM EDT eCW1 ([facility]) Nystatin 100 UNT/MG Topical Powder 11/21/2020 12:00:00 AM EDT eCW1 ([facility]) Fluconazole 150 MG Oral Tablet 11/21/2020 12:00:00 AM EDT eCW1 ([facility]) Nystatin 100 UNT/MG Topical Powder 11/21/2020 12:00:00 AM EDT eCW1 ([facility]) Fluconazole 150 MG Oral Tablet 11/21/2020 12:00:00 AM EDT eCW1 ([facility]) Nystatin 100 UNT/MG Topical Powder 11/21/2020 12:00:00 AM EDT eCW1 ([facility]) Fluconazole 150 MG Oral Tablet 11/21/2020 12:00:00 AM EDT eCW1 ([facility]) Nystatin 100 UNT/MG Topical Powder 11/21/2020 12:00:00 AM EDT eCW1 ([facility]) Fluconazole 150 MG Oral Tablet 11/21/2020 12:00:00 AM EDT eCW1 ([facility]) Nystatin 100 UNT/MG Topical Powder 11/21/2020 12:00:00 AM EDT eCW1 ([facility]) Fluconazole 150 MG Oral Tablet 11/21/2020 12:00:00 AM EDT eCW1 ([facility]) Fluconazole 150 MG Oral Tablet 11/21/2020 12:00:00 AM EDT eCW1 ([facility]) Nystatin 100 UNT/MG Topical Powder 11/21/2020 12:00:00 AM EDT eCW1 ([facility]) Fluconazole 150 MG Oral Tablet 11/21/2020 12:00:00 AM EDT eCW1 ([facility]) Nystatin 100 UNT/MG Topical Powder 11/21/2020 12:00:00 AM EDT eCW1 ([facility]) Fluconazole 150 MG Oral Tablet 11/21/2020 12:00:00 AM EDT eCW1 ([facility]) Nystatin 100 UNT/MG Topical Powder 11/21/2020 12:00:00 AM EDT eCW1 ([facility]) Test Strips - 11/15/2020 12:00:00 AM EDT eCW1 ([facility]) Test Strips - 11/15/2020 12:00:00 AM EDT eCW1 ([facility]) Test Strips - 11/15/2020 12:00:00 AM EDT eCW1 ([facility]) Test Strips - 11/15/2020 12:00:00 AM EDT eCW1 ([facility]) Test Strips - 11/15/2020 12:00:00 AM EDT eCW1 ([facility]) Test Strips - 11/15/2020 12:00:00 AM EDT eCW1 ([facility]) Test Strips - 11/15/2020 12:00:00 AM EDT eCW1 ([facility]) Test Strips - 11/15/2020 12:00:00 AM EDT eCW1 ([facility]) Test Strips - 11/15/2020 12:00:00 AM EDT eCW1 ([facility]) Test Strips - 11/15/2020 12:00:00 AM EDT eCW1 ([facility]) Test Strips - 11/15/2020 12:00:00 AM EDT eCW1 ([facility]) Test Strips - 11/15/2020 12:00:00 AM EDT eCW1 ([facility]) Test Strips - 11/15/2020 12:00:00 AM EDT eCW1 ([facility]) Test Strips - 11/15/2020 12:00:00 AM EDT eCW1 ([facility]) Test Strips - 11/15/2020 12:00:00 AM EDT eCW1 ([facility]) Test Strips - 11/15/2020 12:00:00 AM EDT eCW1 ([facility]) Test Strips - 11/15/2020 12:00:00 AM EDT eCW1 ([facility]) Levothyroxine Sodium 0.025 MG Oral Tablet 11/08/2020 12:00:00 AM ED T eCW1 ([facility]) Famotidine 20 MG Oral Tablet 06/22/2020 12:00:00 AM EST eCW1 ([facility])
--- NOTE | 2021-03-12 14:14 | REP ---
INDICATION: altered mental status , elevated wbc. COMPARISON: Multiple the latest 01/31/2021 TECHNIQUE: Portable FINDINGS: The technique utilized in obtaining the radiograph has magnified the cardiac silhouette and accentuated the interstitial markings. There is cardiomegaly accentuated by technique status quo. There is no change in the lung rodriguez. No acute patchy parenchymal opacities or pleural effusions have developed. There is no change in the osseous structures. IMPRESSION: There is no acute cardiopulmonary disease. There is mild cardiomegaly status quo. <Electronically signed by Jordi Caldwell > 03/12/21 [id number]
[2021-03-12] MEDS ORDERED: GLUCOSE 4GM CHEW TABLET PO PRN (14:40)
[2021-03-12] MEDS ORDERED: DEXTROSE 50% 50 ML SYRINGE IV PRN (14:40)
[2021-03-12] MEDS ORDERED: GLUCAGON INJ 1MG VIAL SC PRN (14:40)
--- OUTSIDE RECORDS SUMMARY | 2021-03-12 14:56 | CCD ---
Author Author [facility] Organization [facility] Address Unknown Phone Unavailable Support Name Relationship Address Phone MARIOFATOU OHARA Next Of Kin Unknown MARY ANN GARZA Next Of Kin Unknown Unavailable REWIS, FOR ) ANTONIO([place] [address] RE Next Of Kin Unknown Unavailable RETIRED Next Of Kin Unknown Unavailable [place] [address] Raz Maldonado MD Next Of Kin [address] [place] [address] Loraine Meyers Next Of Kin [address] [place] [address] Gricelda Castillo Next Of Kin [address] [place] [address] Jose Sullivan Next Of Kin [address] [place] [address] Caity Yepez Next Of Kin [address] [place] [address] "" Next Of Kin [address] [place] [address] [employer] [place] [address] DISABLED Next Of Kin Unknown MARY ANN ALAMO Next Of Kin [address] [place] [address] RAJNI FRANCOIS Next Of Kin [address] [place], [place] [id number] UN Next Of Kin Unknown Unavailable EMMA SANCHEZ Next Of Kin [address] [address] REWIS, FOR ) ANTONIO([place] [address] Unavailable Holly ALAMO [address] [place] [address] Unavailable Care Team Providers Care Food Safety Coordinator Name Role Phone NO, PCP Unavailable Unavailable [...] Unavailable Unavailable TEODORA, CHAN MALDONADO Unavailable Unavailable TEODORACHAN MD Unavailable Unavailable TEODORA, [...] is protected by Article 27-F of the [facility] Public Health law. If you continue you may have access to information: Regarding HIV / AIDS; Provided by facilities licensed or operated by the [facility] Office of Mental Health; or Provided by the [facility] Office for People With Developmental Disabilities. If such information is present, then the following [facility] mandated warning applies: This information [...] law may result in a fine or senior living sentence or both. A general authorization for the release of medical or other information is NOT sufficient authorization for further disc losure. Allergies and Adverse Reactions Type Description Substance Reaction Status Data Source(s ) Propensity to adverse reactions Morphine Sulfate Morphine Confusion Active eCW1 ([facility]) No Known Environmental Allergies No Known Environmental Al lergies [facility] No Known Food Allergies No Known Food Allergies [facility] Propensity to adverse reactions OXYCODONE HCL-ACETAMINOPHEN OXYCODONE HCL-ACETAMINOPHEN UNKNOWN [facility] Family History Family Member Name Family Member Gender Family Member Status Date o f Status Description Data Source(s) Unknown Female Problem MEDENT ([facility]) Unknown Female Problem MEDENT ([facility]) Encounters Encounter Providers Location Date Indications Data Source(s ) [place] [address] [facility] [address] 03/06/2021 12:00:00 AM EDT eCW1 ([facility]) [place] [address] [facility] [address] 02/13/2021 12:00:00 AM EDT eCW1 ([facility]) [place] [address] [facility] [address] 02/05/2021 12:00:00 AM EDT eCW1 ([facility]) [place] [address] [facility] [address] 01/31/2021 12:00:00 AM EDT eCW1 ([facility]) OFFICE OUTPATIENT VISIT 15 MINUTES Attender: JIGAR GATICA Phys ical Therapy 12/14/2020 02:00:00 PM EDT MEDENT ([facility]) [place] [address] [facility] [address] 12/11/2020 12:00:00 AM EDT eCW1 ([facility]) Out[place] [address] [facility] [address] 11/28/2020 12:00:00 AM EDT eCW1 ([facility]) [place] [address] [facility] [address] 11/24/2020 12:00:00 AM EDT eCW1 ([facility]) [place] [address] [facility] [address] 11/24/2020 12:00:00 AM EDT eCW1 ([facility]) [place] [address] [facility] [address] 11/24/2020 12:00:00 AM EDT eCW1 ([facility]) [place] [address] [facility] [address] 11/24/2020 12:00:00 AM EDT eCW1 ([facility]) [place] [address] [facility] [address] 11/24/2020 12:00:00 AM EDT eCW1 ([facility]) [place] [address] [facility] [address] 11/24/2020 12:00:00 AM EDT eCW1 ([facility]) [place] [address] [facility] [address] 11/23/2020 12:00:00 AM EDT eCW1 ([facility]) [place] [address] [facility] [address] 11/23/2020 12:00:00 AM EDT eCW1 ([facility]) [place] [address] [facility] [address] 11/22/2020 12:00:00 AM EDT eCW1 ([facility]) [place] [address] [facility] [address] 11/22/2020 12:00:00 AM EDT eCW1 ([facility]) [place] [address] [facility] [address] 11/21/2020 12:00:00 AM EDT eCW1 ([facility]) [place] [address] [facility] [address] 11/20/2020 12:00:00 AM EDT eCW1 ([facility]) [place] [address] [facility] [address] 11/17/2020 12:00:00 AM EDT eCW1 ([facility]) [place] [address] [facility] [address] 11/15/2020 12:00:00 AM EDT eCW1 ([facility]) [place] [address] [facility] [address] 11/14/2020 12:00:00 AM EDT eCW1 ([facility]) [place] [address] [facility] [address] 11/14/2020 12:00:00 AM EDT eCW1 ([facility]) [place] [address] [facility] [address] 11/13/2020 12:00:00 AM EDT eCW1 ([facility]) [place] [address] [facility] [address] 11/09/2020 12:00:00 AM EDT [facility] [place] [address] [facility] [address] 10/27/2020 12:00:00 AM EDT eCW1 ([facility]) [place] [address] [facility] [address] 10/05/2020 12:00:00 AM EDT [facility]CW1 [facility]) Outpatient Attender: Norma Asher MDConsultant: PCP NO 07/12/2020 07:15:00 AM EST - 07/12/2020 09:08:00 AM EST [facility] Patient discharged. [place] [address] [facility] [address] 06/26/2020 12:00:00 AM EST eCW1 ([facility]) [place] [address] [facility] [address] 06/22/2020 12:00:00 AM EST [facility]CW1 ([facility]) [place] [address] [facility] [address] 06/06/2020 12:00:00 AM EST eCW1 ([facility]) [place] [address] [facility] [address] 06/06/2020 12:00:00 AM EST eCW1 ([facility]) [place] [address] [facility] [address] 05/26/2020 12:00:00 AM EST eCW1 ([facility]) Outpatient Attender: Norma Asher MDConsultant: PCP NO 05/17/2020 09:00:00 AM EST - 05/17/2020 12:25:00 PM EST [facility] Patient discharged. [place] [address] [facility] [address] 05/15/2020 12:00:00 AM EST eCW1 ([facility]) Outpatient Attender: Norma Asher MDConsultant: PCP NO 05/10/2020 08:18:02 AM EST - 05/10/2020 09:40:00 AM EST [facility] Patient discharged. Outpatient Attender: CHAN ARAIZA MD [email or web address] 12:00:00 AM EDT - 02/04/2020 11:56:35 AM EDT [facility] Immunizations Vaccine Date Status Description Data Source(s) Moderna #2 dose COVID-19(given elsewhere) SARSCOV2 VAC 100MCG/0.5ML IM 08/16/2020 01:15:00 PM EDT completed eCW1 ([facility]) Moderna #2 dose COVID-19(given elsewhere) SARSCOV2 VAC 100MCG/0.5ML IM 08/16/2020 01:15:00 PM EDT completed eCW1 ([facility]) Moderna #2 dose COVID-19(given elsewhere) SARSCOV2 VAC 100MCG/0.5ML IM 08/16/2020 01:15:00 PM EDT completed eCW1 ([facility]) Moderna #2 dose COVID-19(given elsewhere) SARSCOV2 VAC 100MCG/0.5ML IM 08/16/2020 01:15:00 PM EDT completed eCW1 ([facility]) Moderna #2 dose COVID-19(given elsewhere) SARSCOV2 VAC 100MCG/0.5ML IM 08/16/2020 01:15:00 PM EDT completed eCW1 ([facility]) Moderna #2 dose COVID-19(given elsewhere) SARSCOV2 VAC 100MCG/0.5ML IM 08/16/2020 01:15:00 PM EDT completed eCW1 ([facility]) Moderna #2 dose COVID-19(given elsewhere) SARSCOV2 VAC 100MCG/0.5ML IM 08/16/2020 01:15:00 PM EDT completed eCW1 ([facility]) Moderna #2 dose COVID-19(given elsewhere) SARSCOV2 VAC 100MCG/0.5ML IM 08/16/2020 01:15:00 PM EDT completed eCW1 ([facility]) Moderna #2 dose COVID-19(given elsewhere) SARSCOV2 VAC 100MCG/0.5ML IM 08/16/2020 01:15:00 PM EDT completed eCW1 ([facility]) Moderna #2 dose COVID-19(given elsewhere) SARSCOV2 VAC 100MCG/0.5ML IM 08/16/2020 01:15:00 PM EDT completed eCW1 ([facility]) Moderna #2 dose COVID-19(given elsewhere) SARSCOV2 VAC 100MCG/0.5ML IM 08/16/2020 01:15:00 PM EDT completed eCW1 ([facility]) Moderna #2 dose COVID-19(given elsewhere) SARSCOV2 VAC 100MCG/0.5ML IM 08/16/2020 01:15:00 PM EDT completed eCW1 ([facility]) Moderna #2 dose COVID-19(given elsewhere) SARSCOV2 VAC 100MCG/0.5ML IM 08/16/2020 01:15:00 PM EDT completed eCW1 ([facility]) Moderna #2 dose COVID-19(given elsewhere) SARSCOV2 VAC 100MCG/0.5ML IM 08/16/2020 01:15:00 PM EDT completed eCW1 ([facility]) Moderna #2 dose COVID-19(given elsewhere) SARSCOV2 VAC 100MCG/0.5ML IM 08/16/2020 01:15:00 PM EDT completed eCW1 ([facility]) Moderna #2 dose COVID-19(given elsewhere) SARSCOV2 VAC 100MCG/0.5ML IM 08/16/2020 01:15:00 PM EDT completed eCW1 ([facility]) Moderna #2 dose COVID-19(given elsewhere) SARSCOV2 VAC 100MCG/0.5ML IM 08/16/2020 01:15:00 PM EDT completed eCW1 ([facility]) Moderna #2 dose COVID-19(given elsewhere) SARSCOV2 VAC 100MCG/0.5ML IM 08/16/2020 01:15:00 PM EDT completed eCW1 ([facility]) Moderna #2 dose COVID-19(given elsewhere) SARSCOV2 VAC 100MCG/0.5ML IM 08/16/2020 01:15:00 PM EDT completed eCW1 ([facility]) Moderna #2 dose COVID-19(given elsewhere) SARSCOV2 VAC 100MCG/0.5ML IM 08/16/2020 01:15:00 PM EDT completed eCW1 ([facility]) Moderna #2 dose COVID-19(given elsewhere) SARSCOV2 VAC 100MCG/0.5ML IM 08/16/2020 01:15:00 PM EDT completed eCW1 ([facility]) Moderna #2 dose COVID-19(given elsewhere) SARSCOV2 VAC 100MCG/0.5ML IM 08/16/2020 01:15:00 PM EDT completed eCW1 ([facility]) Moderna #2 dose COVID-19 (given elsewhere) SARSCOV2 VA C 100MCG/0.5ML IM 08/16/2020 01:15:00 PM EDT completed eCW1 ([facility]) Moderna #2 dose COVID-19 (given elsewhere) SARSCOV2 VA C 100MCG/0.5ML IM 08/16/2020 01:15:00 PM EDT completed eCW1 ([facility]) Moderna #2 dose COVID-19 (given elsewhere) SARSCOV2 VA C 100MCG/0.5ML IM 08/16/2020 01:15:00 PM EDT completed eCW1 ([facility]) Moderna #2 dose COVID-19(given elsewhere) SARSCOV2 VAC 100MCG/0.5ML IM 08/16/2020 01:15:00 PM EDT completed eCW1 ([facility]) COVID-19 VACCINE Moderna 08/16/2020 12:00:00 AM EDT completed [facility] Vaccine Series Complete: YESThis Data wa s Submitted to [facility] Via [employer]. COVID-19 VACCINE Moderna 07/19/2020 12:00:00 AM EDT completed [employer] Vaccine Series Complete: NOThis Data was Submitted to [facility] Via [employer]. Moderna #1 dose COVID-19(given elsewhere) SARSCOV2 VAC 100MCG/0.5ML IM 07/15/2020 01:14:00 PM EST completed eCW1 ([facility]) Moderna #1 dose COVID-19(given elsewhere) SARSCOV2 VAC 100MCG/0.5ML IM 07/15/2020 01:14:00 PM EST completed eCW1 ([facility]) Moderna #1 dose COVID-19(given elsewhere) SARSCOV2 VAC 100MCG/0.5ML IM 07/15/2020 01:14:00 PM EST completed eCW1 ([facility]) Moderna #1 dose COVID-19(given elsewhere) SARSCOV2 VAC 100MCG/0.5ML IM 07/15/2020 01:14:00 PM EST completed eCW1 ([facility]) Moderna #1 dose COVID-19(given elsewhere) SARSCOV2 VAC 100MCG/0.5ML IM 07/15/2020 01:14:00 PM EST completed eCW1 ([facility]) Moderna #1 dose COVID-19(given elsewhere) SARSCOV2 VAC 100MCG/0.5ML IM 07/15/2020 01:14:00 PM EST completed eCW1 ([facility]) Moderna #1 dose COVID-19(given elsewhere) SARSCOV2 VAC 100MCG/0.5ML IM 07/15/2020 01:14:00 PM EST completed eCW1 ([facility]) Moderna #1 dose COVID-19(given elsewhere) SARSCOV2 VAC 100MCG/0.5ML IM 07/15/2020 01:14:00 PM EST completed eCW1 ([facility]) Moderna #1 dose COVID-19(given elsewhere) SARSCOV2 VAC 100MCG/0.5ML IM 07/15/2020 01:14:00 PM EST completed eCW1 ([facility]) Moderna #1 dose COVID-19(given elsewhere) SARSCOV2 VAC 100MCG/0.5ML IM 07/15/2020 01:14:00 PM EST completed eCW1 ([facility]) Moderna #1 dose COVID-19(given elsewhere) SARSCOV2 VAC 100MCG/0.5ML IM 07/15/2020 01:14:00 PM EST completed eCW1 ([facility]) Moderna #1 dose COVID-19(given elsewhere) SARSCOV2 VAC 100MCG/0.5ML IM 07/15/2020 01:14:00 PM EST completed eCW1 ([facility]) Moderna #1 dose COVID-19(given elsewhere) SARSCOV2 VAC 100MCG/0.5ML IM 07/15/2020 01:14:00 PM EST completed eCW1 ([facility]) Moderna #1 dose COVID-19(given elsewhere) SARSCOV2 VAC 100MCG/0.5ML IM 07/15/2020 01:14:00 PM EST completed eCW1 ([facility]) Moderna #1 dose COVID-19(given elsewhere) SARSCOV2 VAC 100MCG/0.5ML IM 07/15/2020 01:14:00 PM EST completed eCW1 ([facility]) Moderna #1 dose COVID-19(given elsewhere) SARSCOV2 VAC 100MCG/0.5ML IM 07/15/2020 01:14:00 PM EST completed eCW1 ([facility]) Moderna #1 dose COVID-19(given elsewhere) SARSCOV2 VAC 100MCG/0.5ML IM 07/15/2020 01:14:00 PM EST completed eCW1 ([facility]) Moderna #1 dose COVID-19(given elsewhere) SARSCOV2 VAC 100MCG/0.5ML IM 07/15/2020 01:14:00 PM EST completed eCW1 ([facility]) Moderna #1 dose COVID-19(given elsewhere) SARSCOV2 VAC 100MCG/0.5ML IM 07/15/2020 01:14:00 PM EST completed eCW1 ([facility]) Moderna #1 dose COVID-19(given elsewhere) SARSCOV2 VAC 100MCG/0.5ML IM 07/15/2020 01:14:00 PM EST completed eCW1 ([facility]) Moderna #1 dose COVID-19(given elsewhere) SARSCOV2 VAC 100MCG/0.5ML IM 07/15/2020 01:14:00 PM EST completed eCW1 ([facility]) Moderna #1 dose COVID-19(given elsewhere) SARSCOV2 VAC 100MCG/0.5ML IM 07/15/2020 01:14:00 PM EST completed eCW1 ([facility]) Moderna #1 dose COVID-19 (given elsewhere) SARSCOV2 VA C 100MCG/0.5ML IM 07/15/2020 01:14:00 PM EST completed eCW1 ([facility]) Moderna #1 dose COVID-19 (given elsewhere) SARSCOV2 VA C 100MCG/0.5ML IM 07/15/2020 01:14:00 PM EST completed eCW1 ([facility]) Moderna #1 dose COVID-19 (given elsewhere) SARSCOV2 VA C 100MCG/0.5ML IM 07/15/2020 01:14:00 PM EST completed eCW1 ([facility]) Moderna #1 dose COVID-19(given elsewhere) SARSCOV2 VAC 100MCG/0.5ML IM 07/15/2020 01:14:00 PM EST completed eCW1 ([facility]) influenza, recombinant, quadrIvalent,injectable, prese rvative free 01/27/2020 01:54:00 PM EDT completed eCW1 ([facility]) influenza, recombinant, quadrIvalent,injectable, prese rvative free 01/27/2020 01:54:00 PM EDT completed eCW1 ([facility]) influenza, recombinant, quadrIvalent,injectable, prese rvative free 01/27/2020 01:54:00 PM EDT completed eCW1 ([facility]) influenza, recombinant, quadrIvalent,injectable, prese rvative free 01/27/2020 01:54:00 PM EDT completed eCW1 ([facility]) influenza, recombinant, quadrIvalent,injectable, prese rvative free 01/27/2020 01:54:00 PM EDT completed eCW1 ([facility]) influenza, recombinant, quadrIvalent,injectable, prese rvative free 01/27/2020 01:54:00 PM EDT completed eCW1 ([facility]) influenza, recombinant, quadrIvalent,injectable, prese rvative free 01/27/2020 01:54:00 PM EDT completed eCW1 ([facility]) influenza, recombinant, quadrIvalent,injectable, prese rvative free 01/27/2020 01:54:00 PM EDT completed eCW1 ([facility]) influenza, recombinant, quadrIvalent,injectable, prese rvative free 01/27/2020 01:54:00 PM EDT completed eCW1 ([facility]) influenza, recombinant, quadrIvalent,injectable, prese rvative free 01/27/2020 01:54:00 PM EDT completed eCW1 ([facility]) influenza, recombinant, quadrIvalent,injectable, prese rvative free 01/27/2020 01:54:00 PM EDT completed eCW1 ([facility]) influenza, recombinant, quadrIvalent,injectable, prese rvative free 01/27/2020 01:54:00 PM EDT completed eCW1 ([facility]) influenza, recombinant, quadrIvalent,injectable, prese rvative free 01/27/2020 01:54:00 PM EDT completed eCW1 ([facility]) influenza, recombinant, quadrIvalent,injectable, prese rvative free 01/27/2020 01:54:00 PM EDT completed eCW1 ([facility]) influenza, recombinant, quadrIvalent,injectable, prese rvative free 01/27/2020 01:54:00 PM EDT completed eCW1 ([facility]) influenza, recombinant, quadrIvalent,injectable, prese rvative free 01/27/2020 01:54:00 PM EDT completed eCW1 ([facility]) influenza, recombinant, quadrIvalent,injectable, prese rvative free 01/27/2020 01:54:00 PM EDT completed eCW1 ([facility]) influenza, recombinant, quadrIvalent,injectable, prese rvative free 01/27/2020 01:54:00 PM EDT completed eCW1 ([facility]) influenza, recombinant, quadrIvalent,injectable, prese rvative free 01/27/2020 01:54:00 PM EDT completed eCW1 ([facility]) influenza, recombinant, quadrIvalent,injectable, prese rvative free 01/27/2020 01:54:00 PM EDT completed eCW1 ([facility]) influenza, recombinant, quadrIvalent,injectable, prese rvative free 01/27/2020 01:54:00 PM EDT completed eCW1 ([facility]) influenza, recombinant, quadrIvalent,injectable, prese rvative free 01/27/2020 01:54:00 PM EDT completed eCW1 ([facility]) influenza, recombinant, quadrIvalent,injectable, prese rvative free 01/27/2020 01:54:00 PM EDT completed eCW1 ([facility]) influenza, recombinant, quadrIvalent,injectable, prese rvative free 01/27/2020 01:54:00 PM EDT completed eCW1 ([facility]) influenza, recombinant, quadrIvalent,injectable, prese rvative free 01/27/2020 01:54:00 PM EDT completed eCW1 ([facility]) influenza, recombinant, quadrIvalent,injectable, prese rvative free 01/27/2020 01:54:00 PM EDT completed eCW1 ([facility]) influenza, recombinant, quadrIvalent,injectable, prese rvative free 01/27/2020 01:54:00 PM EDT completed eCW1 ([facility]) Medications Medication Brand Name Start Date Product [...] { tablet} active Cyanocobalamin 1000 MCG eCW1 ([facility]) Acetaminophen 325 MG Oral Tablet Acetaminophen 325 MG 2020 12:00:00 AM EDT 1.0 {tablet_as_needed} active A cetaminophen 325 MG eCW1 ([facility]) meloxicam 7.5 MG Oral Tablet Meloxicam 7.5 MG Meloxicam 7.5 MG 02/02/2021 12:00:00 AM EDT 1.0 {tablet} active Me loxicam 7.5 MG eCW1 ([facility]) Cyanocobalamin 1000 MCG UNK 02/02/2021 12:00:00 AM EDT 1.0 { tablet} active Cyanocobalamin 1000 MCG eCW1 ([facility]) 12 HR Acetazolamide 500 MG Extended Rele ase Oral Capsule acetaZOLAMIDE ER 500 MG acetaZOLAMIDE ER 500 MG 02/02/2021 12:00:00 AM EDT 1.0 {capsule} active acetaZOLAMIDE ER 500 MG eCW1 ([facility]) BLOOD-GLUCOSE METER 02/02/2021 12:00:00 AM EDT misc 1 USE DIRECTED USE DIRECTED SOLD: 02/04/2021 Kely Mazariegos s meloxicam 7.5 MG Oral Tablet Meloxicam 7.5 MG Meloxicam 7.5 MG 02/02/2021 12:00:00 AM EDT 1.0 {tablet} active Me loxicam 7.5 MG eCW1 ([facility]) Polymyxin B 14564 UNT/ML / Trimethoprim 1 MG/ML Ophthalmic Solution Polymyxin B- Trimethoprim 48677-7.1 UNIT/ML Polymyxin B-Trimethoprim 33551-3.1 UNIT/ML 02/02/2021 12:00:00 AM EDT active Polymyxin B-Trimethoprim 76129- 0.1 UNIT/ML eCW1 ([facility]) Combivent Respimat 20-100 mcg/act UNK 02/02/2021 12:00:00 AM EDT 1.0 {puff} active Combivent Respimat 20-100 mcg/act eCW1 ([facility]) Cyanocobalamin 1000 MCG UNK 02/02/2021 12:00:00 AM EDT 1.0 { tablet} active Cyanocobalamin 1000 MCG eCW1 ([facility]) Combivent Respimat 20-100 mcg/act UNK 02/02/2021 12:00:00 AM EDT 1.0 {puff} active Combivent Respimat 20-100 mcg/act eCW1 ([facility]) Acetaminophen 325 MG Oral Tablet Acetaminophen 325 MG 2020 12:00:00 AM EDT 1.0 {tablet_as_needed} active A cetaminophen 325 MG eCW1 ([facility]) 12 HR Acetazolamide 500 MG Extended Rele ase Oral Capsule acetaZOLAMIDE ER 500 MG acetaZOLAMIDE ER 500 MG 02/02/2021 12:00:00 AM EDT 1.0 {capsule} active acetaZOLAMIDE ER 500 MG eCW1 ([facility]) 12 HR Acetazolamide 500 MG Extended Rele ase Oral Capsule acetaZOLAMIDE ER 500 MG acetaZOLAMIDE ER 500 MG 02/02/2021 12:00:00 AM EDT 1.0 {capsule} active acetaZOLAMIDE ER 500 MG eCW1 ([facility]) 12 HR Acetazolamide 500 MG Extended Rele ase Oral Capsule acetaZOLAMIDE ER 500 MG acetaZOLAMIDE ER 500 MG 02/02/2021 12:00:00 AM EDT 1.0 {capsule} active acetaZOLAMIDE ER 500 MG eCW1 ([facility]) meloxicam 7.5 MG Oral Tablet Meloxicam 7.5 MG Meloxicam 7.5 MG 02/02/2021 12:00:00 AM EDT 1.0 {tablet} active Me loxicam 7.5 MG eCW1 ([facility]) Polymyxin B 86075 UNT/ML / Trimethoprim 1 MG/ML Ophthalmic Solution Polymyxin B- Trimethoprim 84683-5.1 UNIT/ML Polymyxin B-Trimethoprim 35789-5.1 UNIT/ML 02/02/2021 12:00:00 AM EDT active Polymyxin B-Trimethoprim 94611- 0.1 UNIT/ML eCW1 ([facility]) Polymyxin B 94547 UNT/ML / Trimethoprim 1 MG/ML Ophthalmic Solution 10,000 unit- 1 mg/mL POLYMYXIN B SULF/TRIMETHOPRIM 02/02/2021 12:00:00 AM EDT drops 1 0 INSTILL 1 DROP IN THE RIGHT EYE SIX TIMES DAILY INSTILL 1 DROP IN THE RIGHT EYE SIX TIMES DAILY SOLD: 02/04/2021 Kely cruz Combivent Respimat 20-100 mcg/act UNK 02/02/2021 12:00:00 AM EDT 1.0 {puff} active Combivent Respimat 20-100 mcg/act eCW1 ([facility]) Cyanocobalamin 1000 MCG UNK 02/02/2021 12:00:00 AM EDT 1.0 { tablet} active Cyanocobalamin 1000 MCG eCW1 ([facility]) Polymyxin B 49368 UNT/ML / Trimethoprim 1 MG/ML Ophthalmic Solution Polymyxin B- Trimethoprim 92640-5.1 UNIT/ML Polymyxin B-Trimethoprim 66411-5.1 UNIT/ML 02/02/2021 12:00:00 AM EDT active Polymyxin B-Trimethoprim 18861- 0.1 UNIT/ML eCW1 ([facility]) Acetaminophen 325 MG Oral Tablet Acetaminophen 325 MG 2020 12:00:00 AM EDT 1.0 {tablet_as_needed} active A cetaminophen 325 MG eCW1 ([facility]) Combivent Respimat 20-100 mcg/act UNK 02/02/2021 12:00:00 AM EDT 1.0 {puff} active Combivent Respimat 20-100 mcg/act eCW1 ([facility]) Polymyxin B 35164 UNT/ML / Trimethoprim 1 MG/ML Ophthalmic Solution Polymyxin B- Trimethoprim 29119-9.1 UNIT/ML Polymyxin B-Trimethoprim 78503-8.1 UNIT/ML 02/02/2021 12:00:00 AM EDT active Polymyxin B-Trimethoprim 17885- 0.1 UNIT/ML eCW1 ([facility]) meloxicam 7.5 MG Oral Tablet Meloxicam 7.5 MG Meloxicam 7.5 MG 02/02/2021 12:00:00 AM EDT 1.0 {tablet} active Me loxicam 7.5 MG eCW1 ([facility]) Acetaminophen 325 MG Oral Tablet Acetaminophen 325 MG 2020 12:00:00 AM EDT 1.0 {tablet_as_needed} active A cetaminophen 325 MG eCW1 ([facility]) meloxicam 7.5 MG Oral Tablet MELOXICAM 12/15/2020 [...] 12/14/2020 12:00:00 AM EDT ORAL active MEDENT ([facility]) 500 mg 12/09/2020 12:00:00 AM EDT capsule, extended relea se 60 TAKE ONE CAPSULE BY MOUTH TWICE A DAY TAKE ONE CAPSULE BY MOUTH TWICE A DAY SOLD: 12/11/2020 [facility] Insulin Glargine 100 UNIT/ML UNK 11/30/2020 12:00:00 AM EDT active Insulin Glargine 100 UNIT/ML eCW1 ([facility]) Insulin Glargine 100 UNIT/ML UNK 11/30/2020 12:00:00 AM EDT active Insulin Glargine 100 UNIT/ML eCW1 ([facility]) Insulin Glargine 100 UNIT/ML UNK 11/30/2020 12:00:00 AM EDT active Insulin Glargine 100 UNIT/ML eCW1 ([facility]) Insulin Glargine 100 UNIT/ML UNK 11/30/2020 12:00:00 AM EDT active Insulin Glargine 100 UNIT/ML eCW1 ([facility]) Insulin Glargine 100 UNIT/ML UNK 11/30/2020 12:00:00 AM EDT active Insulin Glargine 100 UNIT/ML eCW1 ([facility]) 3 ML Insulin Glargine 100 UNT/ML Pen [...] EDT active Insulin Glargine 100 UNIT/ML eCW1 ([facility]) Insulin Glargine 100 UNIT/ML UNK 11/30/2020 12:00:00 AM EDT active Insulin Glargine 100 UNIT/ML eCW1 ([facility]) Nystatin 100 UNT/MG Topical Powder Nystatin 715453 UNI T/GM Nystatin 469133 UNIT/GM 11/23/2020 12:00:00 AM EDT 1.0 {application} active Nystatin 521093 UNIT/GM eCW1 ([facility]) Nystatin 100 UNT/MG Topical Powder Nystatin 867924 UNI T/GM Nystatin 123793 UNIT/GM 11/23/2020 12:00:00 AM EDT 1.0 {application} active Nystatin 777008 UNIT/GM eCW1 ([facility]) Nystatin 100 UNT/MG Topical Powder Nystatin 844309 UNI T/GM Nystatin 572986 UNIT/GM 11/23/2020 12:00:00 AM EDT 1.0 {application} active Nystatin 409341 UNIT/GM eCW1 ([facility]) Nystatin 100 UNT/MG Topical Powder Nystatin 935416 UNI T/GM Nystatin 904162 UNIT/GM 11/23/2020 12:00:00 AM EDT 1.0 {application} active Nystatin 869394 UNIT/GM eCW1 ([facility]) Nystatin 100 UNT/MG Topical Powder Nystatin 603803 UNI T/GM Nystatin 441581 UNIT/GM 11/23/2020 12:00:00 AM EDT 1.0 {application} active Nystatin 726642 UNIT/GM eCW1 ([facility]) Nystatin 100 UNT/MG Topical Powder 100,000 unit/gram [...] Drugs Nystatin 100 UNT/MG Topical Powder Nystatin 645889 UNI T/GM Nystatin 126928 UNIT/GM 11/23/2020 12:00:00 AM EDT 1.0 {application} active Nystatin 615363 UNIT/GM eCW1 ([facility]) Nystatin 100 UNT/MG Topical Powder Nystatin 173733 UNI T/GM Nystatin 867063 UNIT/GM 11/23/2020 12:00:00 AM EDT 1.0 {application} active Nystatin 727384 UNIT/GM eCW1 ([facility]) Nystatin 100 UNT/MG Topical Powder Nystatin 178532 UNI T/GM Nystatin 427911 UNIT/GM 11/23/2020 12:00:00 AM EDT 1.0 {application} active Nystatin 040180 UNIT/GM eCW1 ([facility]) Nystatin 100 UNT/MG Topical Powder Nystatin 927517 UNI T/GM Nystatin 841367 UNIT/GM 11/23/2020 12:00:00 AM EDT 1.0 {application} active Nystatin 252280 UNIT/GM eCW1 ([facility]) Nystatin 100 UNT/MG Topical Powder Nystatin 079345 UNI T/GM Nystatin 605099 UNIT/GM 11/23/2020 12:00:00 AM EDT 1.0 {application} active Nystatin 928281 UNIT/GM eCW1 ([facility]) Nystatin 100 UNT/MG Topical Powder Nystatin 882168 UNI T/GM Nystatin 589552 UNIT/GM 11/23/2020 12:00:00 AM EDT 1.0 {application} active Nystatin 394765 UNIT/GM eCW1 ([facility]) Nystatin 100 UNT/MG Topical Powder Nystatin 070915 UNI T/GM Nystatin 372427 UNIT/GM 11/23/2020 12:00:00 AM EDT 1.0 {application} active Nystatin 541776 UNIT/GM eCW1 ([facility]) Nystatin 100 UNT/MG Topical Powder Nystatin 622537 UNI T/GM Nystatin 696825 UNIT/GM 11/23/2020 12:00:00 AM EDT 1.0 {application} active Nystatin 304514 UNIT/GM eCW1 ([facility]) 150 mg 11/21/2020 12:00:00 AM EDT tablet [...] 1.0 {tablet} active Fluconazole 150 MG eCW1 ([facility]) Nystatin 100 UNT/MG Topical Powder Nystatin 609627 UNI T/GM Nystatin 512602 UNIT/GM 11/21/2020 12:00:00 AM EDT 1.0 {application} active Nystatin 192981 UNIT/GM eCW1 ([facility]) Nystatin 100 UNT/MG Topical Powder Nystatin 123725 UNI T/GM Nystatin 990768 UNIT/GM 11/21/2020 12:00:00 AM EDT 1.0 {application} active Nystatin 871228 UNIT/GM eCW1 ([facility]) Nystatin 100 UNT/MG Topical Powder Nystatin 803448 UNI T/GM Nystatin 592176 UNIT/GM 11/21/2020 12:00:00 AM EDT 1.0 {application} active Nystatin 685884 UNIT/GM eCW1 ([facility]) Nystatin 100 UNT/MG Topical Powder Nystatin 243138 UNI T/GM Nystatin 290717 UNIT/GM 11/21/2020 12:00:00 AM EDT 1.0 {application} active Nystatin 300034 UNIT/GM eCW1 ([facility]) Fluconazole 150 MG Oral Tablet Fluconazole 150 MG 11/21/2020 12:00: 00 AM EDT 1.0 {tablet} active Fluconazole 150 MG eCW1 ([facility]) Nystatin 100 UNT/MG Topical Powder Nystatin 716720 UNI T/GM Nystatin 045892 UNIT/GM 11/21/2020 12:00:00 AM EDT 1.0 {application} active Nystatin 944182 UNIT/GM eCW1 ([facility]) Nystatin 100 UNT/MG Topical Powder Nystatin 096289 UNI T/GM Nystatin 650234 UNIT/GM 11/21/2020 12:00:00 AM EDT 1.0 {application} active Nystatin 092647 UNIT/GM eCW1 ([facility]) Fluconazole 150 MG Oral Tablet Fluconazole 150 MG 11/21/2020 12:00: 00 AM EDT 1.0 {tablet} active Fluconazole 150 MG eCW1 ([facility]) Nystatin 100 UNT/MG Topical Powder Nystatin 342640 UNI T/GM Nystatin 016113 UNIT/GM 11/21/2020 12:00:00 AM EDT 1.0 {application} active Nystatin 652555 UNIT/GM eCW1 ([facility]) Fluconazole 150 MG Oral Tablet Fluconazole 150 MG 11/21/2020 12:00: 00 AM EDT 1.0 {tablet} active Fluconazole 150 MG eCW1 ([facility]) Fluconazole 150 MG Oral Tablet Fluconazole 150 MG 11/21/2020 12:00: 00 AM EDT 1.0 {tablet} active Fluconazole 150 MG eCW1 ([facility]) Fluconazole 150 MG Oral Tablet Fluconazole 150 MG 11/21/2020 12:00: 00 AM EDT 1.0 {tablet} active Fluconazole 150 MG eCW1 ([facility]) Nystatin 100 UNT/MG Topical Powder Nystatin 017031 UNI T/GM Nystatin 917977 UNIT/GM 11/21/2020 12:00:00 AM EDT 1.0 {application} active Nystatin 806160 UNIT/GM eCW1 ([facility]) Fluconazole 150 MG Oral Tablet Fluconazole 150 MG 11/21/2020 12:00: 00 AM EDT 1.0 {tablet} active Fluconazole 150 MG eCW1 ([facility]) Fluconazole 150 MG Oral Tablet Fluconazole 150 MG 11/21/2020 12:00: 00 AM EDT 1.0 {tablet} active Fluconazole 150 MG eCW1 ([facility]) BLOOD-GLUCOSE METER 11/21/2020 12:00:00 AM EDT mis 1 USE DAILY TO TEST BLOOD GLUCOSE USE DAILY TO TEST BLOOD GLUCOSE SOLD: 11/21/2020 [facility] Fluconazole 150 MG Oral Tablet Fluconazole 150 MG 11/21/2020 12:00: 00 AM EDT 1.0 {tablet} active Fluconazole 150 MG eCW1 ([facility]) Nystatin 100 UNT/MG Topical Powder Nystatin 971763 UNI T/GM Nystatin 318906 UNIT/GM 11/21/2020 12:00:00 AM EDT 1.0 {application} active Nystatin 868146 UNIT/GM eCW1 ([facility]) Nystatin 100 UNT/MG Topical Powder Nystatin 767981 UNI T/GM Nystatin 331522 UNIT/GM 11/21/2020 12:00:00 AM EDT 1.0 {application} active Nystatin 200898 UNIT/GM eCW1 ([facility]) Fluconazole 150 MG Oral Tablet Fluconazole 150 MG 11/21/2020 12:00: 00 AM EDT 1.0 {tablet} active Fluconazole 150 MG eCW1 ([facility]) Fluconazole 150 MG Oral Tablet Fluconazole 150 MG 11/21/2020 12:00: 00 AM EDT 1.0 {tablet} active Fluconazole 150 MG eCW1 ([facility]) Fluconazole 150 MG Oral Tablet Fluconazole 150 MG 11/21/2020 12:00: 00 AM EDT 1.0 {tablet} active Fluconazole 150 MG eCW1 ([facility]) Nystatin 100 UNT/MG Topical Powder Nystatin 578471 UNI T/GM Nystatin 604929 UNIT/GM 11/21/2020 12:00:00 AM EDT 1.0 {application} active Nystatin 395162 UNIT/GM eCW1 ([facility]) Nystatin 100 UNT/MG Topical Powder Nystatin 517166 UNI T/GM Nystatin 686481 UNIT/GM 11/21/2020 12:00:00 AM EDT 1.0 {application} active Nystatin 594877 UNIT/GM eCW1 ([facility]) Fluconazole 150 MG Oral Tablet Fluconazole 150 MG 11/21/2020 12:00: 00 AM EDT 1.0 {tablet} active Fluconazole 150 MG eCW1 ([facility]) Nystatin 100 UNT/MG Topical Powder Nystatin 956804 UNI T/GM Nystatin 481248 UNIT/GM 11/21/2020 12:00:00 AM EDT 1.0 {application} active Nystatin 028899 UNIT/GM eCW1 ([facility]) Nystatin 100 UNT/MG Topical Powder Nystatin 659958 UNI T/GM Nystatin 579403 UNIT/GM 11/21/2020 12:00:00 AM EDT 1.0 {application} active Nystatin 303249 UNIT/GM eCW1 ([facility]) Fluconazole 150 MG Oral Tablet Fluconazole 150 MG 11/21/2020 12:00: 00 AM EDT 1.0 {tablet} active Fluconazole 150 MG eCW1 ([facility]) Nystatin 100 UNT/MG Topical Powder Nystatin 467344 UNI T/GM Nystatin 095227 UNIT/GM 11/21/2020 12:00:00 AM EDT 1.0 {application} active Nystatin 393816 UNIT/GM eCW1 ([facility]) Fluconazole 150 MG Oral Tablet Fluconazole 150 MG 11/21/2020 12:00: 00 AM EDT 1.0 {tablet} active Fluconazole 150 MG eCW1 ([facility]) Nystatin 100 UNT/MG Topical Powder Nystatin 643804 UNI T/GM Nystatin 483477 UNIT/GM 11/21/2020 12:00:00 AM EDT 1.0 {application} active Nystatin 829654 UNIT/GM eCW1 ([facility]) Fluconazole 150 MG Oral Tablet Fluconazole 150 MG 11/21/2020 12:00: 00 AM EDT 1.0 {tablet} active Fluconazole 150 MG eCW1 ([facility]) Test Strips - UNK 11/15/2020 12:00:00 AM EDT acti ve Test Strips - eCW1 ([facility]) Test Strips - UNK 11/15/2020 12:00:00 AM EDT acti ve Test Strips - eCW1 ([facility]) Test Strips - UNK 11/15/2020 12:00:00 AM EDT acti ve Test Strips - eCW1 ([facility]) Test Strips - UNK 11/15/2020 12:00:00 AM EDT acti ve Test Strips - eCW1 ([facility]) Test Strips - K 11/15/2020 12:00:00 AM EDT acti ve Test Strips - eCW1 ([facility]) Test Strips - K 11/15/2020 12:00:00 AM EDT acti ve Test Strips - eCW1 ([facility]) Test Strips - [facility] 11/15/2020 12:00:00 AM EDT acti ve Test Strips - eCW1 ([facility]) Test Strips - [facility] 11/15/2020 12:00:00 AM EDT acti ve Test Strips - eCW1 ([facility]) Test Strips - [facility] 11/15/2020 12:00:00 AM EDT acti ve Test Strips - eCW1 ([facility]) Test Strips - [facility] 11/15/2020 12:00:00 AM EDT acti ve Test Strips - eCW1 ([facility]) Test Strips - [facility] 11/15/2020 12:00:00 AM EDT acti ve Test Strips - eCW1 ([facility]) Test Strips - [facility] 11/15/2020 12:00:00 AM EDT acti ve Test Strips - eCW1 ([facility]) Test Strips - [facility] 11/15/2020 12:00:00 AM EDT acti ve Test Strips - eCW1 ([facility]) Test Strips - [facility] 11/15/2020 12:00:00 AM EDT acti ve Test Strips - eCW1 ([facility]) Test Strips - [facility] 11/15/2020 12:00:00 AM EDT acti ve Test Strips - eCW1 ([facility]) Test Strips - [facility] 11/15/2020 12:00:00 AM EDT acti ve Test Strips - eCW1 ([facility]) Test Strips - [facility] 11/15/2020 12:00:00 AM EDT acti ve Test Strips - eCW1 ([facility]) Test Strips - [facility] 11/15/2020 12:00:00 AM EDT acti ve Test Strips - eCW1 ([facility]) Test Strips - UNK 11/15/2020 12:00:00 AM EDT acti ve Test Strips - eCW1 ([facility]) Test Strips - UNK 11/15/2020 12:00:00 AM EDT acti ve Test Strips - eCW1 ([facility]) Test Strips - UNK 11/15/2020 12:00:00 AM EDT acti ve Test Strips - eCW1 ([facility]) Test Strips - UNK 11/15/2020 12:00:00 AM EDT acti ve Test Strips - eCW1 ([facility]) Test Strips - K 11/15/2020 12:00:00 AM EDT acti ve Test Strips - eCW1 ([facility]) Test Strips - K 11/15/2020 12:00:00 AM EDT acti ve Test Strips - eCW1 ([facility]) 25 mcg 11/09/2020 12:00:00 AM EDT tablet 15 TAKE ONE-HALF TABLET BY MOUTH EVERY MORNING ON AN EMPTY STOMACH TAKE ONE-HALF TABLET BY MOUTH EVERY MORN ING ON AN EMPTY STOMACH SOLD: 11/11/2020 [facility] Levothyroxine Sodium 0.025 MG Oral Tablet Levothyroxin e Sodium 25 MCG Levothyroxine Sodium 25 MCG 11/08/2020 12:00:00 AM EDT active Levothyroxine Sodium 25 MCG eCW1 ([facility]) Levothyroxine Sodium 0.025 MG Oral Tablet Levothyroxin e Sodium 25 MCG Levothyroxine Sodium 25 MCG 11/08/2020 12:00:00 AM EDT active Levothyroxine Sodium 25 MCG eCW1 ([facility]) Levothyroxine Sodium 0.025 MG Oral Tablet Levothyroxin e Sodium 25 MCG Levothyroxine Sodium 25 MCG 11/08/2020 12:00:00 AM EDT active Levothyroxine Sodium 25 MCG eCW1 ([facility]) Levothyroxine Sodium 0.025 MG Oral Tablet Levothyroxin e Sodium 25 MCG Levothyroxine Sodium 25 MCG 11/08/2020 12:00:00 AM EDT active Levothyroxine Sodium 25 MCG eCW1 ([facility]) Levothyroxine Sodium 0.025 MG Oral Tablet Levothyroxin e Sodium 25 MCG Levothyroxine Sodium 25 MCG 11/08/2020 12:00:00 AM EDT active Levothyroxine Sodium 25 MCG eCW1 ([facility]) Levothyroxine Sodium 0.025 MG Oral Tablet Levothyroxin e Sodium 25 MCG Levothyroxine Sodium 25 MCG 11/08/2020 12:00:00 AM EDT active Levothyroxine Sodium 25 MCG eCW1 ([facility]) Levothyroxine Sodium 0.025 MG Oral Tablet Levothyroxin e Sodium 25 MCG Levothyroxine Sodium 25 MCG 11/08/2020 12:00:00 AM EDT active Levothyroxine Sodium 25 MCG eCW1 ([facility]) Levothyroxine Sodium 0.025 MG Oral Tablet Levothyroxin e Sodium 25 MCG Levothyroxine Sodium 25 MCG 11/08/2020 12:00:00 AM EDT active Levothyroxine Sodium 25 MCG eCW1 ([facility]) Levothyroxine Sodium 0.025 MG Oral Tablet Levothyroxin e Sodium 25 MCG Levothyroxine Sodium 25 MCG 11/08/2020 12:00:00 AM EDT active Levothyroxine Sodium 25 MCG eCW1 ([facility]) Levothyroxine Sodium 0.025 MG Oral Tablet Levothyroxin e Sodium 25 MCG Levothyroxine Sodium 25 MCG 11/08/2020 12:00:00 AM EDT active Levothyroxine Sodium 25 MCG eCW1 ([facility]) Levothyroxine Sodium 0.025 MG Oral Tablet Levothyroxin e Sodium 25 MCG Levothyroxine Sodium 25 MCG 11/08/2020 12:00:00 AM EDT active Levothyroxine Sodium 25 MCG eCW1 ([facility]) Levothyroxine Sodium 0.025 MG Oral Tablet Levothyroxin e Sodium 25 MCG Levothyroxine Sodium 25 MCG 11/08/2020 12:00:00 AM EDT active Levothyroxine Sodium 25 MCG eCW1 ([facility]) Levothyroxine Sodium 0.025 MG Oral Tablet Levothyroxin e Sodium 25 MCG Levothyroxine Sodium 25 MCG 11/08/2020 12:00:00 AM EDT active Levothyroxine Sodium 25 MCG eCW1 ([facility]) Levothyroxine Sodium 0.025 MG Oral Tablet Levothyroxin e Sodium 25 MCG Levothyroxine Sodium 25 MCG 11/08/2020 12:00:00 AM EDT active Levothyroxine Sodium 25 MCG eCW1 ([facility]) Levothyroxine Sodium 0.025 MG Oral Tablet Levothyroxin e Sodium 25 MCG Levothyroxine Sodium 25 MCG 11/08/2020 12:00:00 AM EDT active Levothyroxine Sodium 25 MCG eCW1 ([facility]) Levothyroxine Sodium 0.025 MG Oral Tablet Levothyroxin e Sodium 25 MCG Levothyroxine Sodium 25 MCG 11/08/2020 12:00:00 AM EDT active Levothyroxine Sodium 25 MCG eCW1 ([facility]) Levothyroxine Sodium 0.025 MG Oral Tablet Levothyroxin e Sodium 25 MCG Levothyroxine Sodium 25 MCG 11/08/2020 12:00:00 AM EDT active Levothyroxine Sodium 25 MCG eCW1 ([facility]) Levothyroxine Sodium 0.025 MG Oral Tablet Levothyroxin e Sodium 25 MCG Levothyroxine Sodium 25 MCG 11/08/2020 12:00:00 AM EDT active Levothyroxine Sodium 25 MCG eCW1 ([facility]) Levothyroxine Sodium 0.025 MG Oral Tablet Levothyroxin e Sodium 25 MCG Levothyroxine Sodium 25 MCG 11/08/2020 12:00:00 AM EDT active Levothyroxine Sodium 25 MCG eCW1 ([facility]) Levothyroxine Sodium 0.025 MG Oral Tablet Levothyroxin e Sodium 25 MCG Levothyroxine Sodium 25 MCG 11/08/2020 12:00:00 AM EDT active Levothyroxine Sodium 25 MCG eCW1 ([facility]) Levothyroxine Sodium 0.025 MG Oral Tablet Levothyroxin e Sodium 25 MCG Levothyroxine Sodium 25 MCG 11/08/2020 12:00:00 AM EDT active Levothyroxine Sodium 25 MCG eCW1 ([facility]) Levothyroxine Sodium 0.025 MG Oral Tablet Levothyroxin e Sodium 25 MCG Levothyroxine Sodium 25 MCG 11/08/2020 12:00:00 AM EDT active Levothyroxine Sodium 25 MCG eCW1 ([facility]) Levothyroxine Sodium 0.025 MG Oral Tablet Levothyroxin e Sodium 25 MCG Levothyroxine Sodium 25 MCG 11/08/2020 12:00:00 AM EDT active Levothyroxine Sodium 25 MCG eCW1 ([facility]) Levothyroxine Sodium 0.025 MG Oral Tablet Levothyroxin e Sodium 25 MCG Levothyroxine Sodium 25 MCG 11/08/2020 12:00:00 AM EDT active Levothyroxine Sodium 25 MCG eCW1 ([facility]) Levothyroxine Sodium 0.025 MG Oral Tablet Levothyroxin e Sodium 25 MCG Levothyroxine Sodium 25 MCG 11/08/2020 12:00:00 AM EDT active Levothyroxine Sodium 25 MCG eCW1 ([facility]) Levothyroxine Sodium 0.025 MG Oral Tablet Levothyroxin e Sodium 25 MCG Levothyroxine Sodium 25 MCG 11/08/2020 12:00:00 AM EDT active Levothyroxine Sodium 25 MCG eCW1 ([facility]) NITROFURANTOIN, MACROCRYSTALS 25 MG / Ni trofurantoin, [...] 1.0 {tablet_at_bedtime_as_needed} active Fa motidine 20 MG W1 ([facility]) Famotidine 20 MG Oral Tablet Famotidine 20 MG 06/22/2020 12:00:00 A M EST 1.0 {tablet_at_bedtime_as_needed} active Fa motidine 20 MG eCW1 ([facility]) Famotidine 20 MG Oral Tablet Famotidine 20 MG 06/22/2020 12:00:00 A M EST 1.0 {tablet_at_bedtime_as_needed} active Fa motidine 20 MG eCW1 ([facility]) Famotidine 20 MG Oral Tablet Famotidine 20 MG 06/22/2020 12:00:00 A M EST 1.0 {tablet_at_bedtime_as_needed} active Fa motidine 20 MG eCW1 ([facility]) Famotidine 20 MG Oral Tablet Famotidine 20 MG 06/22/2020 12:00:00 A M EST 1.0 {tablet_at_bedtime_as_needed} active Fa motidine 20 MG eCW1 ([facility]) Famotidine 20 MG Oral Tablet Famotidine 20 MG 06/22/2020 12:00:00 A M EST 1.0 {tablet_at_bedtime_as_needed} active Fa motidine 20 MG eCW1 ([facility]) Famotidine 20 MG Oral Tablet Famotidine 20 MG 06/22/2020 12:00:00 A M EST 1.0 {tablet_at_bedtime_as_needed} active Fa motidine 20 MG eCW1 ([facility]) Famotidine 20 MG Oral Tablet Famotidine 20 MG 06/22/2020 12:00:00 A M EST 1.0 {tablet_at_bedtime_as_needed} active Fa motidine 20 MG eCW1 ([facility]) Famotidine 20 MG Oral Tablet Famotidine 20 MG 06/22/2020 12:00:00 A M EST 1.0 {tablet_at_bedtime_as_needed} active Fa motidine 20 MG eCW1 ([facility]) Famotidine 20 MG Oral Tablet Famotidine 20 MG 06/22/2020 12:00:00 A M EST 1.0 {tablet_at_bedtime_as_needed} active Fa motidine 20 MG eCW1 ([facility]) Famotidine 20 MG Oral Tablet Famotidine 20 MG 06/22/2020 12:00:00 A M EST 1.0 {tablet_at_bedtime_as_needed} active Fa motidine 20 MG eCW1 ([facility]) Famotidine 20 MG Oral Tablet Famotidine 20 MG 06/22/2020 12:00:00 A M EST 1.0 {tablet_at_bedtime_as_needed} active Fa motidine 20 MG eCW1 ([facility]) Famotidine 20 MG Oral Tablet Famotidine 20 MG 06/22/2020 12:00:00 A M EST 1.0 {tablet_at_bedtime_as_needed} active Fa motidine 20 MG eCW1 ([facility]) Famotidine 20 MG Oral Tablet Famotidine 20 MG 06/22/2020 12:00:00 A M EST 1.0 {tablet_at_bedtime_as_needed} active Fa motidine 20 MG eCW1 ([facility]) Famotidine 20 MG Oral Tablet Famotidine 20 MG 06/22/2020 12:00:00 A M EST 1.0 {tablet_at_bedtime_as_needed} active Fa motidine 20 MG eCW1 ([facility]) Famotidine 20 MG Oral Tablet Famotidine 20 MG 06/22/2020 12:00:00 A M EST 1.0 {tablet_at_bedtime_as_needed} active Fa motidine 20 MG eCW1 ([facility]) Famotidine 20 MG Oral Tablet Famotidine 20 MG 06/22/2020 12:00:00 A M EST 1.0 {tablet_at_bedtime_as_needed} active Fa motidine 20 MG eCW1 ([facility]) Famotidine 20 MG Oral Tablet Famotidine 20 MG 06/22/2020 12:00:00 A M EST 1.0 {tablet_at_bedtime_as_needed} active Fa motidine 20 MG eCW1 ([facility]) Famotidine 20 MG Oral Tablet Famotidine 20 MG 06/22/2020 12:00:00 A M EST 1.0 {tablet_at_bedtime_as_needed} active Fa motidine 20 MG eCW1 ([facility]) Famotidine 20 MG Oral Tablet Famotidine 20 MG 06/22/2020 12:00:00 A M EST 1.0 {tablet_at_bedtime_as_needed} active Fa motidine 20 MG eCW1 ([facility]) Famotidine 20 MG Oral Tablet Famotidine 20 MG 06/22/2020 12:00:00 A M EST 1.0 {tablet_at_bedtime_as_needed} active Fa motidine 20 MG eCW1 ([facility]) Famotidine 20 MG Oral Tablet Famotidine 20 MG 06/22/2020 12:00:00 A M EST 1.0 {tablet_at_bedtime_as_needed} active Fa motidine 20 MG eCW1 ([facility]) Famotidine 20 MG Oral Tablet Famotidine 20 MG 06/22/2020 12:00:00 A M EST 1.0 {tablet_at_bedtime_as_needed} active Fa motidine 20 MG eCW1 ([facility]) Famotidine 20 MG Oral Tablet Famotidine 20 MG 06/22/2020 12:00:00 A M EST 1.0 {tablet_at_bedtime_as_needed} active Fa motidine 20 MG eCW1 ([facility]) Famotidine 20 MG Oral Tablet Famotidine 20 MG 06/22/2020 12:00:00 A M EST 1.0 {tablet_at_bedtime_as_needed} active Fa motidine 20 MG eCW1 ([facility]) Famotidine 20 MG Oral Tablet Famotidine 20 MG 06/22/2020 12:00:00 A M EST 1.0 {tablet_at_bedtime_as_needed} active Fa motidine 20 MG eCW1 ([facility]) Famotidine 20 MG Oral Tablet Famotidine 20 MG 06/22/2020 12:00:00 A M EST 1.0 {tablet_at_bedtime_as_needed} active Fa motidine 20 MG eCW1 ([facility]) Famotidine 20 MG Oral Tablet Famotidine 20 MG 06/22/2020 12:00:00 A M EST 1.0 {tablet_at_bedtime_as_needed} active Fa motidine 20 MG eCW1 ([facility]) Famotidine 20 MG Oral Tablet Famotidine 20 MG 06/22/2020 12:00:00 A M EST 1.0 {tablet_at_bedtime_as_needed} active Fa motidine 20 MG eCW1 ([facility]) 1 mg 06/07/2020 12:00:00 AM EST tablet 90 TAKE ONE TABLET BY MOUTH EVERY DAY TAKE ONE TABLET BY MOUTH EVERY DAY SOLD: 06/07/2020 [facility] 20 mg 06/07/2020 12:00:00 AM EST capsule,delayed release (DR/EC) 30 TAKE ONE CAPSULE BY MOUTH ONCE DAILY TAKE ONE CAPSULE BY MOUTH ONCE DAILY SOLD: 06/07/2020 [facility] 25 mg 05/29/2020 12:00:00 AM EST [...] EVERY DAY AT 8AM SOLD: 11/21/2020 [facility] Escitalopram 10 MG Oral Tablet ESCITALOPRAM OXALATE [...] Plan Information Medicaid [place] Med[place] Part B [id number] Self Medicare [place] [id number] Self [id number] Medicare [facility] Medigap Part B [id number] Self [id number] [place] [id number] Self [id number] [place] [id number] Self [id number] [place] [id number] Self [id number] MEDICARE [id number] SP [id number] W [place] [id number] Self [id number] [place] [id number] Self [id number] MEDICARE [id number] [facility] [id number] [place] [id number] Self [id number] [place] [id number] Self [id number] [place] [id number] Self [place] [id number] Self [id number] [place] [id number] Self [id number] [place] [id number] Self [id number] zzMedicaid FFS O [id number] S [id number] Medicaid S [id number] S [id number] Medicare P [id number] S [id number] W Medicaid S [id number] S [id number] Medicaid O [id number] S [id number] Medicare S [id number] S [id number] W [facility] MCRO [id number] SP [id number] [facility] Medicare Commercial Dual Complete [id number] Self Dual Complete [facility] MCRO [id number] SP [id number] [facility] Secure Horizons P [id number] S [id number] [facility] Secure Horiz[employer] P [id number] S [id number] [facility] Secure [employer]iz[employer] P [id number] S [id number] [place] [id number] Self [id number] [facility] ([facility]) Commercial [id number] Self [place] Med[place] Part B [id number] Self [facility] ([facility]) Commercial [id number] Self [id number] [facility] ([facility]) Medigap Part B [id number] Self [id number] [place] [id number] Self [id number] [place] [id number] Self [id number] [facility] ([facility]) Medigap Part B [id number] Self [id number] [place] [id number] Self [id number] [facility] ([facility]) Medigap Part B [id number] Self [id number] [place] [id number] Self [id number] [facility] ([facility]) Medigap Part B [id number] Self [id number] [place] [id number] Self [id number] [facility] ([facility]) Medigap Part B [id number] Self [id number] [place] [id number] Self [id number] [facility] ([facility]) Commercial [id number] Self [id number] [place] [id number] Self [id number] [facility] ([facility]) Medigap Part B [id number] Self [id number] [place] [id number] Self [id number] [facility] ([facility]) Medigap Part B [id number] Self [id number] [place] [id number] Self [id number] [facility] ([facility]) Medigap Part B [id number] Self [id number] [place] [id number] Self [id number] [facility] ([facility]) Medigap Part B [id number] Self [id number] [place] [id number] Self [id number] [facility] ([facility]) Commercial [id number] Self [id number] Medicaid S [id number] S [id number] [facility] Medicare Commercial [id number] Self [id number] [facility] [id number] SP [id number] [employer] MEDICARE [id number] Danielle [id number] [facility] Hmo Commercial [id number] Self [id number] [place] [id number] S [id number] [facility] Medicare Medigap Part B [id number] Self [id number] [facility] O [id number] S [id number] [facility] Hmo Commercial [id number] Self HUMANA HMO [id number] SP [id number] [facility] [id number] SP [id number] [employer]NA HMO [id number] SP [id number] MEDICARE [id number] SP [id number] MEDICAID [id number] SP [id number] MEDICARE [id number] SP [id number] [facility]) O [id number] S [id number] MEDICARE C [id number] S [id number] W Medicare Wrap O [id number] S [id number] [place] [id number] SP [id number] MEDICAID M [id number] S [id number] HUMANA GOLD O [id number] S [id number] [place] [id number] SP [id number] HUMANA GOLD PLUS -O/P [id number] 18 [id number] MEDICARE [id number] SP [id number] W zzMedicaid FFS O [id number] S [id number] HUMANA GOLD [id number] SP [id number] [employer] GOLD [id number] SP [id number] [employer] Medicare Medigap Part B [id number] Self [id number] MEDICARE [id number] SP [id number] [place] MEDICAID [id number] SP [id number] Problems, Conditions, and Diagnoses Code Display Name Description Problem Type Effective Dates Data Source(s) Z794 senior living (current) use of insulin senior living (cu rrent) use of insulin Diagnosis 07/12/2020 07:15:00 AM [facility] Z885 Allergy status to narcotic agent Allergy status to narcotic agent Diagnosis 07/12/2020 07:15:00 AM [facility] Q14416 Preglaucoma, unspecified, bilateral Preglaucoma, unspecified, bilateral Diagnosis 07/12/2020 07:15:00 AM [facility] H524 Presbyopia Presbyopia Diagnosis 07/12/2020 07:15:00 AM [facility] F329 Major depressive disorder, single episod e, unspecified Major depressive disorder, single episode, unspecified Diagnosis 07/12/2020 07:15:00 AM [facility] F419 Anxiety disorder, unspecified Anxiety disorder, unspec ified Diagnosis 07/12/2020 07:15:00 AM [facility] I10 Essential (primary) hypertension Essential (primary) h ypertension Diagnosis 07/12/2020 07:15:00 AM [facility] H2513 Age-related nuclear cataract, bilateral Age-related nuclear cataract, bilateral Diagnosis 07/12/2020 07:15:00 AM [facility] E1136 Type 2 diabetes mellitus with diabetic c ataract Type 2 diabetes mellitus with diabetic cataract Diagnosis 07/12/2020 07:15:00 AM [facility] Z833 Family history of diabetes mellitus Family histo ry of diabetes mellitus Diagnosis 05/17/2020 09:00:00 AM [facility] Z8249 Family history of ischemic h eart disease and other diseases of the circulatory system Family history of ischemic heart disease and other diseases of the circulatory system Diagnosis 05/17/2020 09:00:00 AM [facility] W07597 Other emt intermediate (current) drug therapy O ther emt intermediate (current) drug therapy Diagnosis 05/17/2020 09:00:00 AM [facility] F411 Generalized anxiety disorder Generalized anxiety disor johnathan Diagnosis 05/17/2020 09:00:00 AM [facility] H259 Unspecified age-related cataract Unspecified age -related cataract Diagnosis 05/17/2020 09:00:00 AM [facility] D04153 Encounter for other preprocedural examin ation Encounter for other preprocedural examination Diagnosis 05/10/2020 09:20:00 AM [facility] E66.9 Obesity, unspecified Obesity, unspecified Diagnosis 02/04/2020 11:09:03 AM EDT [facility] R60.9 Edema, unspecified Edema, unspecified Diagnosis 06/2019 11:09:03 AM EDT [facility] E11.9 Type 2 diabetes mellitus without complic ations Type 2 diabetes mellitus without complic Diagnosis 02/04/2020 11:09:03 AM EDT [facility] R94.31 Abnormal electrocardiogram [ECG] [EKG] A bnormal electrocardiogram (ECG) (EKG) Diagnosis 02/04/2020 11:09:03 AM EDT [facility] G47.33 Obstructive sleep apnea (adult) (pediatr ic) Obstructive sleep apnea (adult) (pediatr Diagnosis 02/04/2020 11:09:03 AM EDT [facility] E03.9 Hypothyroidism, unspecified Hypothyroidism, unspecifie d Diagnosis 02/04/2020 11:09:03 AM EDT [facility] J44.9 Chronic obstructive pulmonary disease, u nspecified Chronic obstructive pulmonary disease, u Diagnosis 02/04/2020 11:09:03 AM EDT [facility] I10 Essential (primary) hypertension Essential (primary) h ypertension Diagnosis 02/04/2020 11:09:03 AM EDT [facility] E78.5 Hyperlipidemia, unspecified Hyperlipidemia, unspecifie d Diagnosis 02/04/2020 11:09:03 AM EDT [facility] E03.9 [id number] Hypothyroidism, unspecified type Problem 02/10/2021 12:00:00 AM EDT eCW1 ([facility]) R29.6 [id number] Frequent falls Problem 02/09/2021 12:00:00 A M EDT eCW1 ([facility]) E11.8 [id number] Type 2 diabetes mellitus with complicatio ns Problem 11/30/2020 12:00:00 AM EDT eCW1 ([facility]) N18.4 [id number] Chronic kidney disease, stage 4 (severe) Problem 11/30/2020 12:00:00 AM EDT eCW1 ([facility]) E78.5 Hyperlipidemia Hyperlipidemia, unspecified Problem 10/05/2020 12:00:00 AM EDT eCW1 ([facility]) Z92.241 081578335 History of steroid therapy Problem 12:00:00 AM EDT eCW1 ([facility]) E11.22 198867065 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 Problem 06/22/2020 12:00:00 AM EST eCW1 ([facility]) G47.00 108607266 Insomnia, unspecified type Problem 12:00:00 AM EST eCW1 ([facility]) G47.9 99422418 Sleep disturbance Problem 06/22/2020 12:00:0 0 AM EST eCW1 ([facility]) H25.11 [id number] Age-related nuclear cataract, right ey e Problem 05/08/2020 12:00:00 AM EST eCW1 ([facility]) E11.21 189515157 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 Problem 03/30/2020 12:00:00 AM EST eCW1 ([facility]) I10 73676234 Hypertension, unspecified type Problem 03/30 12:00:00 AM EST eCW1 ([facility]) F17.200 78953294 Smoker Problem 03/30/2020 12:00:00 AM ES T eCW1 ([facility]) Z90.81 [id number] Asplenia after surgical procedure Problem 03/30/2020 12:00:00 AM EST eCW1 ([facility]) E11.69 [id number] Type 2 diabetes mellitus with ot her specified complication Problem 03/30/2020 12:00:00 AM EST eCW1 ([facility]) Surgeries/Procedures Procedure Description Date Indications Data Source(s) RADEX HAND MINIMUM 3 VIEWS 12/14/2020 12:00:00 AM EDT [facility] ([facility] ) OFFICE OUTPATIENT VISIT 15 MINUTES 12/14/2020 12:00:00 AM EDT [facility] ([facility] ) THERAPEUTIC PX 1/> AREAS EACH 15 MIN EXERCISES 12:00:00 AM EDT [facility] ([facility] ) THERAPEUTIC PX 1/> AREAS EACH 15 MIN EXERCISES 12:00:00 AM EDT [facility] ([facility] ) Results ID Date Data Source [id number] 01/31/2021 05:10:00 PM EDT [facility] Name Value Range Interpretation Code Description Data Anju rce(s) Supporting Document(s) SARS coronavirus 2 RNA [Presence] in Res piratory specimen by HECTOR with probe detection NEGATIVE [facility] This lab was ordered by [facility] a nd reported by [facility]. ID Date Data Source [id number] 12/08/2020 04:45:00 PM EDT [facility] Name Value Range Interpretation Code Description Data Anju rce(s) Supporting Document(s) SARS-CoV-2 (COVID-19) Negative [facility] This lab was ordered by [facility] and reported by [facility]. ID Date Data Source UA URINALYSIS 11/09/2020 12:00:00 AM EDT eCW1 ([facility]) Name Value Range Interpretation Code Description Data Anju rce(s) Supporting Document(s) UA URINALYSIS eCW1 ([facility]) ID Date Data Source [id number] 07/19/2020 02:01:00 [place] [address] OPERATIVE SUMMARYNAME: MAZIN BENITEZ DATE OF : 1955TTENDING PHYS: Norma Asher MD DATE: 07/12/20 MR#: [id number] PROCEDURE: 07/12/20PREOPERATIVE DIAGNOSIS: Cataract, left eye.POSTOPERATIVE DIAGNOSIS: Cataract, left eyePROCEDURE: Phacoemulsification with cataract removal with the help of ORA, IOL lens useAUOOTO 18.5 diopter.SURGEON: Norma Asher MD.NEUROLOGY HOSPITALIST: None.INDICATIONS: Decreased vision interfering with daily activities.DETAILS [...] salt solution followed by phacoemulsification in a hrhedl-gfa-ghnnvmi methodwithin the capsular bag. Excess cortical material [...] rce(s) Supporting Document(s) ID Date Data Source [id number] 07/07/2020 01:46:00 PM EST [facility] Name Value Range Interpretation Code Description Data Anju rce(s) Supporting Document(s) SARS-CoV-2 (COVID-19) Negative [facility] This lab was ordered by [facility] and reported by [facility]. ID Date Data Source [id number] 06/25/2020 09:05:00 AM EST [facility] Name Value Range Interpretation Code Description Data Anju rce(s) Supporting Document(s) SARS-CoV-2 (COVID 19) NEGATIVE - SARS-CoV-2 (COVID19) [facility] This lab was ordered by [facility] a nd reported by [facility]. ID Date Data Source [id number] 05/25/2020 08:51:00 [place] [address] OPERATIVE SUMMARYNAME: MAZIN BENITEZ DATE OF : 1955TTENDING PHYS: Norma Asher MD DATE: 05/17/20 MR#: [id number] [id number] PROCEDURE: 05/17/2020REOPERATIVE DIAGNOSIS: Cataract, right eye.POSTOPERATIVE DIAGNOSIS: Cataract, right eyePROCEDURE: Phacoemulsification with intraocular lens implantation with the help of ORA,AUOOTO 18 diopters.SURGEON: Norma Asher MD.NEUROLOGY HOSPITALIST: None.COMPLICATIONS: None.INDICATIONS: Decreased vision interfering with daily [...] salt solution followed by phacoemulsification in a ixkevm-uue-qrfjzwl methodwithin the capsular bag. Excess cortical material [...] condition.DD: Norma Asher MD 05/25/20 08:27 [address] [place] [address] OPERATIVE SUMMARYNAME: MAZIN BENITEZ DATE OF : 3ATTENDING PHYS: Norma Asher MD DATE: 05/17/20 MR#: [id number]: SSR 05/25/20 08:50DS: Norma Asher MD 06/05/20 13:41 2 Name Value Range Interpretation Code Description Data Anju rce(s) Supporting Document(s) ID Date Data Source [id number] 05/12/2020 11:07:00 AM EST [facility] Name Value Range Interpretation Code Description Data Anju rce(s) Supporting Document(s) SARS-CoV-2 (COVID-19) Negative [facility] This lab was ordered by [facility] and reported by [facility]. Procedure Social History Code Duration Value Status Description Data Source(s ) Smoking 03/02/2021 12:00:00 AM EDT Former Smoker completed Former Smoker eCW1 ([facility]) Smoking 02/09/2021 12:00:00 AM EDT Former Smoker completed Former Smoker eCW1 ([facility]) Smoking 02/09/2021 12:00:00 AM EDT Former Smoker completed Former Smoker eCW1 ([facility]) Smoking 01/01/2021 12:00:00 AM EDT Former Smoker completed Former Smoker eCW1 ([facility]) Smoking 01/01/2021 12:00:00 AM EDT Former Smoker completed Former Smoker eCW1 ([facility]) Smoking 11/28/2020 12:00:00 AM EDT Former Smoker completed Former Smoker eCW1 ([facility]) Smoking 11/28/2020 12:00:00 AM EDT Former Smoker completed Former Smoker eCW1 ([facility]) Smoking 11/09/2020 12:00:00 AM EDT Former Smoker completed Former Smoker eCW1 ([facility]) Smoking 11/09/2020 12:00:00 AM EDT Former Smoker completed Former Smoker eCW1 ([facility]) Smoking 11/09/2020 12:00:00 AM EDT Former Smoker completed Former Smoker eCW1 ([facility]) Smoking 11/09/2020 12:00:00 AM EDT Former Smoker completed Former Smoker eCW1 ([facility]) Smoking 11/09/2020 12:00:00 AM EDT Former Smoker completed Former Smoker eCW1 ([facility]) Smoking 11/09/2020 12:00:00 AM EDT Former Smoker completed Former Smoker eCW1 ([facility]) Smoking 11/09/2020 12:00:00 AM EDT Former Smoker completed Former Smoker eCW1 ([facility]) Smoking 11/09/2020 12:00:00 AM EDT Former Smoker completed Former Smoker eCW1 ([facility]) Smoking 11/09/2020 12:00:00 AM EDT Former Smoker completed Former Smoker eCW1 ([facility]) Smoking 11/09/2020 12:00:00 AM EDT Former Smoker completed Former Smoker eCW1 ([facility]) Smoking 11/09/2020 12:00:00 AM EDT Former Smoker completed Former Smoker eCW1 ([facility]) Smoking 11/09/2020 12:00:00 AM EDT Former Smoker completed Former Smoker eCW1 ([facility]) Smoking 11/09/2020 12:00:00 AM EDT Former Smoker completed Former Smoker eCW1 ([facility]) Smoking 11/09/2020 12:00:00 AM EDT Former Smoker completed Former Smoker eCW1 ([facility]) Smoking 11/09/2020 12:00:00 AM EDT Former Smoker completed Former Smoker eCW1 ([facility]) Smoking 11/09/2020 12:00:00 AM EDT Former Smoker completed Former Smoker eCW1 ([facility]) Smoking 11/09/2020 12:00:00 AM EDT Former Smoker completed Former Smoker eCW1 ([facility]) Smoking 11/09/2020 12:00:00 AM EDT Former Smoker completed Former Smoker eCW1 ([facility]) Smoking 11/09/2020 12:00:00 AM EDT Former Smoker completed Former Smoker eCW1 ([facility]) Smoking 10/26/2020 12:00:00 AM EDT Former Smoker completed Former Smoker eCW1 ([facility]) Smoking 07/06/2020 12:00:00 AM EST Former Smoker completed Former Smoker eCW1 ([facility]) Smoking 06/21/2020 12:00:00 AM EST Former Smoker completed Former Smoker eCW1 ([facility]) Smoking 05/22/2020 12:00:00 AM EST Former Smoker completed Former Smoker eCW1 ([facility]) Smoking 05/22/2020 12:00:00 AM EST Former Smoker completed Former Smoker eCW1 ([facility]) Smoking 05/22/2020 12:00:00 AM EST Former Smoker completed Former Smoker eCW1 ([facility]) Smoking 05/08/2020 12:00:00 AM EST Former Smoker completed Former Smoker eCW1 ([facility]) Vital Signs ID Date Data Source UNK Name Value Range Interpretation Code Description Data Source(s) Body temperature 96.9 [degF] 96.9 [degF] [facility] ([facility] ) Body height 61.75 [in_i] 61.75 [in_i] [facility] ([facility]) 5'1.75" Body weight 168.12 [lb_av] 168.12 [lb_av] MEDEN T ([facility]) Body mass index (BMI) [Ratio] 31.0 kg/m2 31.0 k g/m2 MED[facility] ([facility]) Body weight 181.0 [lb_av] 181.0 [lb_av] eCW1 ([facility]) Body height 61.75 [in_i] 61.75 [in_i] eCW1 ([facility]) Body mass index (BMI) [Ratio] 33.37 kg/m2 33.37 kg/m2 eCW1 ([facility]) Heart rate 77 /min 77 /min eCW1 ([facility]) Respiratory rate 18 /min 18 /min eCW1 ([facility]) Body temperature 96.9 [degF] 96.9 [degF] eCW1 ( [facility]) Systolic blood pressure 130 mm[Hg] 130 mm[Hg] e CW1 ([facility]) Diastolic blood pressure 70 mm[Hg] 70 mm[Hg] eCW1 ([facility]) Respiratory rate 18 /min 18 /min eCW1 ([facility]) Body weight 179.8 [lb_av] 179.8 [lb_av] eCW1 ([facility]) Body height 61.75 [in_i] 61.75 [in_i] eCW1 ([facility]) Body mass index (BMI) [Ratio] 33.15 kg/m2 33.15 kg/m2 eCW1 ([facility]) Heart rate 75 /min 75 /min eCW1 ([facility]) Body temperature 96.1 [degF] 96.1 [degF] eCW1 ( [facility]) Systolic blood pressure 130 mm[Hg] 130 mm[Hg] e CW1 ([facility]) Diastolic blood pressure 80 mm[Hg] 80 mm[Hg] eCW1 ([facility]) Diastolic blood pressure 88 mm[Hg] 88 mm[Hg] eCW1 ([facility]) Body weight 177.6 [lb_av] 177.6 [lb_av] eCW1 ([facility]) Body height 61.75 [in_i] 61.75 [in_i] eCW1 ([facility]) Body mass index (BMI) [Ratio] 32.74 kg/m2 32.74 kg/m2 eCW1 ([facility]) Heart rate 78 /min 78 /min eCW1 ([facility]) Respiratory rate 18 /min 18 /min eCW1 ([facility]) Body temperature 97.8 [degF] 97.8 [degF] eCW1 ( [facility]) Systolic blood pressure 130 mm[Hg] 130 mm[Hg] e CW1 ([facility]) Body weight 184.6 [lb_av] 184.6 [lb_av] eCW1 ([facility]) Body height 61.75 [in_i] 61.75 [in_i] eCW1 ([facility]) Body mass index (BMI) [Ratio] 34.03 kg/m2 34.03 kg/m2 eCW1 ([facility]) Heart rate 84 /min 84 /min eCW1 ([facility]) Respiratory rate 18 /min 18 /min eCW1 ([facility]) Body temperature 97.1 [degF] 97.1 [degF] eCW1 ( [facility]) Systolic blood pressure 120 mm[Hg] 120 mm[Hg] e CW1 ([facility]) Diastolic blood pressure 74 mm[Hg] 74 mm[Hg] eCW1 ([facility]) ID Date Data Source [id number] 08/16/2020 03:20:59 PM EDT [facility] Name Value Range Interpretation Code Description Data Source(s) WEIGHT RECORDED 184.00 pounds 184.00 pounds [facility] Height 60 Inches 060 Inches [facility] ID Date Data Source [id number] 06/05/2020 01:41:52 PM EST [facility] Name Value Range Interpretation Code Description Data Source(s) WEIGHT RECORDED 184.00 pounds 184.00 pounds [facility] Height 60 Inches 060 Inches [facility] Patient Treatment Plan of Care Planned Activity Planned Date Details Description Data Source (s) Cyanocobalamin 1000 MCG 02/02/2021 12:00:00 AM EDT eCW1 ([facility]) Insulin Glargine 100 UNIT/ML 11/30/2020 12:00:00 AM EDT eCW1 ([facility]) Insulin Glargine 100 UNIT/ML 11/30/2020 12:00:00 AM EDT eCW1 ([facility]) Nystatin 100 UNT/MG Topical Powder 11/23/2020 12:00:00 AM EDT eCW1 ([facility]) Nystatin 100 UNT/MG Topical Powder 11/23/2020 12:00:00 AM EDT eCW1 ([facility]) Nystatin 100 UNT/MG Topical Powder 11/23/2020 12:00:00 AM EDT eCW1 ([facility]) Nystatin 100 UNT/MG Topical Powder 11/23/2020 12:00:00 AM EDT eCW1 ([facility]) Nystatin 100 UNT/MG Topical Powder 11/23/2020 12:00:00 AM EDT eCW1 ([facility]) Nystatin 100 UNT/MG Topical Powder 11/23/2020 12:00:00 AM EDT eCW1 ([facility]) Nystatin 100 UNT/MG Topical Powder 11/23/2020 12:00:00 AM EDT eCW1 ([facility]) Nystatin 100 UNT/MG Topical Powder 11/23/2020 12:00:00 AM EDT eCW1 ([facility]) Nystatin 100 UNT/MG Topical Powder 11/23/2020 12:00:00 AM EDT eCW1 ([facility]) Nystatin 100 UNT/MG Topical Powder 11/23/2020 12:00:00 AM EDT eCW1 ([facility]) Fluconazole 150 MG Oral Tablet 11/21/2020 12:00:00 AM EDT eCW1 ([facility]) Nystatin 100 UNT/MG Topical Powder 11/21/2020 12:00:00 AM EDT eCW1 ([facility]) Fluconazole 150 MG Oral Tablet 11/21/2020 12:00:00 AM EDT eCW1 ([facility]) Nystatin 100 UNT/MG Topical Powder 11/21/2020 12:00:00 AM EDT eCW1 ([facility]) Fluconazole 150 MG Oral Tablet 11/21/2020 12:00:00 AM EDT eCW1 ([facility]) Nystatin 100 UNT/MG Topical Powder 11/21/2020 12:00:00 AM EDT eCW1 ([facility]) Fluconazole 150 MG Oral Tablet 11/21/2020 12:00:00 AM EDT eCW1 ([facility]) Nystatin 100 UNT/MG Topical Powder 11/21/2020 12:00:00 AM EDT eCW1 ([facility]) Fluconazole 150 MG Oral Tablet 11/21/2020 12:00:00 AM EDT eCW1 ([facility]) Nystatin 100 UNT/MG Topical Powder 11/21/2020 12:00:00 AM EDT eCW1 ([facility]) Nystatin 100 UNT/MG Topical Powder 11/21/2020 12:00:00 AM EDT eCW1 ([facility]) Fluconazole 150 MG Oral Tablet 11/21/2020 12:00:00 AM EDT eCW1 ([facility]) Nystatin 100 UNT/MG Topical Powder 11/21/2020 12:00:00 AM EDT eCW1 ([facility]) Fluconazole 150 MG Oral Tablet 11/21/2020 12:00:00 AM EDT eCW1 ([facility]) Nystatin 100 UNT/MG Topical Powder 11/21/2020 12:00:00 AM EDT eCW1 ([facility]) Fluconazole 150 MG Oral Tablet 11/21/2020 12:00:00 AM EDT eCW1 ([facility]) Nystatin 100 UNT/MG Topical Powder 11/21/2020 12:00:00 AM EDT eCW1 ([facility]) Fluconazole 150 MG Oral Tablet 11/21/2020 12:00:00 AM EDT eCW1 ([facility]) Nystatin 100 UNT/MG Topical Powder 11/21/2020 12:00:00 AM EDT eCW1 ([facility]) Fluconazole 150 MG Oral Tablet 11/21/2020 12:00:00 AM EDT eCW1 ([facility]) Fluconazole 150 MG Oral Tablet 11/21/2020 12:00:00 AM EDT eCW1 ([facility]) Nystatin 100 UNT/MG Topical Powder 11/21/2020 12:00:00 AM EDT eCW1 ([facility]) Fluconazole 150 MG Oral Tablet 11/21/2020 12:00:00 AM EDT eCW1 ([facility]) Nystatin 100 UNT/MG Topical Powder 11/21/2020 12:00:00 AM EDT eCW1 ([facility]) Fluconazole 150 MG Oral Tablet 11/21/2020 12:00:00 AM EDT eCW1 ([facility]) Nystatin 100 UNT/MG Topical Powder 11/21/2020 12:00:00 AM EDT eCW1 ([facility]) Test Strips - 11/15/2020 12:00:00 AM EDT eCW1 ([facility]) Test Strips - 11/15/2020 12:00:00 AM EDT eCW1 ([facility]) Test Strips - 11/15/2020 12:00:00 AM EDT eCW1 ([facility]) Test Strips - 11/15/2020 12:00:00 AM EDT eCW1 ([facility]) Test Strips - 11/15/2020 12:00:00 AM EDT eCW1 ([facility]) Test Strips - 11/15/2020 12:00:00 AM EDT eCW1 ([facility]) Test Strips - 11/15/2020 12:00:00 AM EDT eCW1 ([facility]) Test Strips - 11/15/2020 12:00:00 AM EDT eCW1 ([facility]) Test Strips - 11/15/2020 12:00:00 AM EDT eCW1 ([facility]) Test Strips - 11/15/2020 12:00:00 AM EDT eCW1 ([facility]) Test Strips - 11/15/2020 12:00:00 AM EDT eCW1 ([facility]) Test Strips - 11/15/2020 12:00:00 AM EDT eCW1 ([facility]) Test Strips - 11/15/2020 12:00:00 AM EDT eCW1 ([facility]) Test Strips - 11/15/2020 12:00:00 AM EDT eCW1 ([facility]) Test Strips - 11/15/2020 12:00:00 AM EDT eCW1 ([facility]) Test Strips - 11/15/2020 12:00:00 AM EDT eCW1 ([facility]) Test Strips - 11/15/2020 12:00:00 AM EDT eCW1 ([facility]) Levothyroxine Sodium 0.025 MG Oral Tablet 11/08/2020 12:00:00 AM ED T eCW1 ([facility]) Famotidine 20 MG Oral Tablet 06/22/2020 12:00:00 AM EST eCW1 ([facility])
[2021-03-12] MEDS ORDERED: COMB0.2S OU (15:03)
[2021-03-12] MEDS ORDERED: [UNRECOGNIZED DRUG - OTHER] (15:26)
[2021-03-12] MEDS ORDERED: HOME MED LIST COMPLETE! XX SCH (15:30)
[2021-03-12] MEDS ORDERED: hydrALAZINE 20MG/ML 1ML VIAL (J0360 PER 20MG) IV PRN (15:45)
--- NOTE | 2021-03-12 15:48 | HPEPDOC ---
[facility] Medical History & Physical Date of Admission Mar 12, 2021 Date of Service: Mar 12, 2021 Attending Physician: Xin Cross MD History and Physical CHIEF COMPLAINT: altered mental status HISTORY OF PRESENT ILLNESS: Patient is a 66-year-old female with past medical history of hypertension, as plenia, depression, hypothyroidism, hyperlipidemia, diabetes type 2 who presented to the emergency room via EMS after being found down by her home health aide. Patient was a poor historian and therefore a lot of my history was obtained from prior notes. The patient was last seen well on 03/09/2021 at her baseline, awake, alert, oriented 3. The patient was not able to recount the events of what happened to the home health aide. She appeared weak, with dry oral mucosa, incontinent of urine. She was sent to the emergency room to be further evaluated by EMS. In the emergency room vital signs showed temperature 98.1, heart rate 78, respiratory rate 16, blood pressure 187/87, 99% on room air. UA positive, urine culture sent. CT of the head was negative for acute intracranial pathology, chest x-ray negative for acute cardiopulmonary findings. Respiratory panel was negative. Blood cultures and urine cultures were pending. The patient was confused and would repeat herself. She was unreliable in evaluating review of systems. The patient was started on IV fluids, IV ceftriaxone. Lactic acid r eturned as being elevated at 5.1, CK 1200, CO2 18, creatinine 1.89, WBC 16, blood sugar 342. The patient was ultimately admitted for UTI, sepsis, dehydration, rhabdomyolysis. PAST MEDICAL HISTORY: 1. Hypertension. 2. Asplenia. 3. Depression. 4. Hypothyroidism 5. Hyperlipidemia 6. Overactive bladder 7. GERD 8. Type 2 diabetes 9. Chronic anemia PAST SURGICAL HISTORY: 1. Splenectomy 2. Right knee replacement 3. D&C and uterine polypectomy 4. Complete hysterectomy with bilateral salpingo-oophorectomy 5. Right total hip arthroplasty 6. Carpal tunnel release 7. Colonoscopy and upper endoscopy 8. Left total hip arthroplasty SOCIAL HISTORY: Patient quit smoking 10 years ago. Patient denies drinking alcohol or use illicit drugs FAMILY HISTORY: Father at 61 with an NE. Mother has diabetes ALLERGIES: Please see below. REVIEW OF SYSTEMS: Unable to obtain PHYSICAL EXAMINATION: VITAL SIGNS: temperature 98.1, heart rate 78, respiratory rate 16, blood pressure 187/87, any 9% on room air. General: Lethargic, confused female. Awake, follows some commands but for the most part is disoriented HEENT: Normocephalic, atraumatic, very dry oral mucous. PEERLA Neck: No lymphadenopathy or thyromegaly Cardiac: Regular rate and rhythm, no murmurs, normal S1, normal S2 Pulm: Clear to auscultation bilaterally. No wheezes, rhonchi, rales Abd: Nondistended, nontender to palpation, normal bowel sounds Ext: No edema bilateral lower extremities Neuro: Confused, no obvious focal deficits. Could not follow commands to test cranial nerves. Moving all 4 extremities Skin: Dry skin on the upper and lower extremities as well as the torso, flaking off it places LABORATORY DATA: See below. IMAGING: CT head: 1. Ventriculomegaly and cortical atrophy proportionate and unchanged. 2. Chronic small vessel white matter ischemic changes, stable. 3. Old lacunar infarct right thalamus and no new lacunar infarct, intracranial hemorrhage, vascular territory infarct, mass or mass effect. 4. Skull base and calvarium without fracture or focal lesion in the visualized sinuses and mastoids clear. CXR: There is no acute cardiopulmonary disease. There is mild cardiomegaly status quo. MICROBIOLOGY: F/u UCx, Bcx x 2 sets ASSESSMENT: 66-year-old female with past medical history of hypertension, asplenia, depression, hypothyroidism, hyperlipidemia, diabetes type 2 admitted for acute metabolic encephalopathy secondary to UTI, sepsis, dehydration, rhabdomyolysis. PLAN: UTI, sepsis -WBC 16 K, lactic acid 5.1, afebrile, positive UA -Follow up blood cultures, urine culture, daily CBC, telemetry, repeat LA -Started on IV ceftriaxone, IV fluids at 125 mL/h, bolus as needed, sepsis protocol Acute metabolic encephalopathy likely secondary to UTI, sepsis, dehydration -Confused from her baseline which is normally awake alert oriented 3 -Currently perseverates and repeats things over and over -CT of the head negative -UTI tx above -F/u UDS -Tx above DM type II -BS uncontrolled 342 -F/u HbA1c -FS Q6H, ISS, IVFs -Did not take home levemir, will give now and start daily Acute kidney injury likely 2/2 to dehydration, rhabdomyolysis and medications -Cr 1.89, baseline normal -Holding and avoiding nephrotoxic meds -IVFs -Daily labs Rhabdomyolysis status post fall and downtime likely days -CK 1200, creatinine elevated at 1.89 -Cycle CKs daily, IV fluids Lactic acidosis secondary to sepsis -Lactic acid 5.1, CO2 18 -If mental status worsens get ABG and monitor closely -Cycling lactic acid Fall, hx of frequent falls -Found down -PT/OT when mentation improves Hypertension -BP 180's -Hydralazine PRN while on fluids. -Holding PO meds Hypothyroidism -TSH slightly elevated -Hold home PO meds Hyperlipidemia -Hold home PO meds Overactive bladder -Hold home PO meds GERD -PPI IV DVT prophylaxis -Heparin DISPOSITION: Admitted as inpatient, PCU. Will need PT/OT when mentation improves. From home. Full Code. Vital Signs Vital Signs Date Time Temp Pulse Resp B/P (MAP) Pulse Ox O2 Delivery O2 Flow Rate FiO2 03/12/21 10:22 98.1 78 16 187/87 (120) 99 Room Air Laboratory Data Labs 24H Laboratory Tests 2 03/12/21 10:33: Immature Granulocyte % (Auto) 0.6, Neutrophils (%) (Auto) 89.4H, Lymphocytes (%) (Auto) 3.9L, Monocytes (%) (Auto) 5.5, Eosinophils (%) (Auto) 0.2, Basophils (%) (Auto) 0.4, Neutrophils # (Auto) 14.6H, Lymphocytes # (Auto) 0.6L, Monocytes # (Auto) 0.9H, Eosinophils # (Auto) 0.0, Basophils # (Auto) 0.1, Nucleated Red Blood Cells % (auto) 0.0, Anion Gap 15, Glomerular Filtration Rate 28.2L, Lactic Acid Level 5.1*H, Calcium Level 9.7, Total Bilirubin 1.2H, Direct Bilirubin 0.3H, Aspartate Amino Transf (AST/SGOT) 52H, Alanine Aminotransferase (ALT/SGPT) 36, Alkaline Phosphatase 88, Ammonia < 10, Total Creatine Kinase 1292H, Creatine Kinase MB 3.1, Creatine Kinase MB Relative Index 0.24, Troponin I < 0.02, Total Protein 7.1, Albumin 3.4, Albumin/Globulin Ratio 0.9L, Thyroid Stimulating Hormone (TSH) 4.880H 03/12/21 10:35: POC Glucose (Misc Panel) 341H, POC Sodium (Misc Panel) 144, POC Potassium (Misc Panel) 4.7, POC Chloride (Misc Panel) 112H, POC Total CO2 (Misc Panel) 19.0L, POC Blood Urea Nitrogen (Misc Panel 40H, POC Ionized Calcium (Misc Panel) 4.6, POC Creatinine (Misc Panel) 1.5H, POC Hematocrit (Misc Panel) 38.0 03/12/21 12:11: Urine Color YELLOW, Urine Appearance CLOUDYH, Urine pH 5.0, Urine Specific [place] 1.027, Urine Protein 3+H, Urine Glucose (UA) 3+H, Urine Ketones TRACEH, Urine Blood 2+H, Urine Nitrite NEGATIVE, Urine Bilirubin NEGATIVE, Urine Uro bilinogen 0.2, Urine Leukocyte Esterase TRACEH, Urine WBC (Auto) 20H, Urine RBC (Auto) 3, Urine Hyaline Casts (Auto) 0, Urine Bacteria (Auto) 3+H, Urine Squamous Epithelial Cells 1, Urine Mucus (Auto) SMALL, Urine Sperm (Auto) CBC/BMP Laboratory Tests 03/12/21 10:33 Microbiology Microbiology 03/12/21 Urine Culture, Received Pending 03/12/21 Respiratory Virus Panel (PCR) (SUKUMAR) - Final, Complete 03/12/21 Blood Culture, Received Pending 03/12/21 Blood Culture, Received Pending Home Medications Scheduled Acetazolamide (Acetazolamide) 500 Mg Capsule.er, 500 MG PO BID Alendronate Sodium (Alendronate Sodium) 70 Mg Tablet, 70 MG PO QWEEK Brimonidine Tartrate/Timolol (Combigan 0.2%-0.5% Eye Drops) 5 Ml Drops, 1 DROP OU BID Cyanocobalamin (Vitamin B-12) (B-12) 1,000 Mcg Tablet, 1 TAB PO DAILY Empagliflozin (Jardiance) 25 Mg Tablet, 25 MG PO DAILY Escitalopram Oxalate (Lexapro) 10 Mg Tablet, 10 MG PO DAILY Ezetimibe (Ezetimibe) 10 Mg Tab, 10 MG PO DAILY Glipizide (Glipizide) 10 Mg Tab, 10 MG PO BID Insulin Aspart (Novolog) 100 Unit/1 Ml Cartridge, 1 DOSE SC AC PER SLIDING SCALE Insulin Glargine,Hum.rec.anlog (Lantus Solostar) 100 Unit/1 Ml Insuln.pen, 12 UNITS SC DAILY Levothyroxine Sodium (Levothyroxine Sodium) 25 Mcg Tablet, 12.5 MCG PO DAILY TAKES WITH 200 MCG TAB FOR 212.5 MCG TOTAL DOSE Levothyroxine Sodium (Levothyroxine) 200 Mcg Capsule, 200 MCG PO DAILY TAKES WITH 12.5 MCG HALF-TAB FOR 212.5 MCG TOTAL DOSE Meloxicam (Meloxicam) 7.5 Mg Tablet, 7.5 MG PO DAILY Mirabegron (Myrbetriq) 25 Mg Tab.er.24h, 25 MG PO DAILY Polymyxin B Sulf/Trimethoprim (Polymyxin B-Tmp Eye Drops) 10 Ml Drops, 1 DROP OD 6XD Rosuvastatin Calcium (Rosuvastatin Calcium) 40 Mg Tablet, 40 MG PO DAILY Valsartan (Valsartan) 80 Mg Tablet, 80 MG PO DAILY Scheduled PRN Acetaminophen (Acetaminophen) 325 Mg Tablet, 325 MG PO DAILY PRN for PAIN LEVEL 1-4 Famotidine (Famotidine) 20 Mg Tablet, 20 MG PO QHS PRN for HEARTBURN Ipratropium/Albuterol Sulfate (Combivent Respimat 20-100 Mcg) 4 Gm Mist.inhal, 1 PUFF INH QID PRN for SHORTNESS OF BREATH Trazodone HCl (Trazodone HCl) 50 Mg Tablet, 25 MG PO QHS PRN for INSOMNIA Allergies Coded Allergies: hydrocodone (Unverified Adverse Reaction, Mild, "I just act crazy", 01/31/21) oxycodone (Verified Adverse Reaction, Mild, confusion, 11/04/20) A-FIB/CHADSVASC A-FIB History Current/History of A-Fib/PAF?: No Current PO Anticoag Therapy: No Age/Risk Factor Scoring CHADSVASC: CHADSVASC Response (Comments) Value Age Risk Factor Age 65-74 years old 1 Gender Risk Factor Female 1 Hx of CHF No 0 Hx of HTN Yes 1 Hx of Stroke/TIA/or VTE No 0 Hx of Diabetes Yes 1 Hx of Vascular Disease No 0 Total 4 Treatment Treatment ordered: Other Other anticoagulant ordered: heparin Xin Cross MD Mar 12, 2021 15:48
[2021-03-12 15:52] LABS: INR 1.1; PROTHROMBIN TIME 14.6 SECONDS (12.7-14.5)
[2021-03-12 15:53] LABS: PARTIAL THROMBOPLASTIN TIME 24.2 SECONDS (25.9-37.0)
[2021-03-12] MEDS ORDERED: HumaLOG INSULIN (NovoLOG) PER UNIT SC SCH ×2 (17:30→21:00)
[2021-03-12 18:44] VITALS: BP 180/63
[2021-03-12] MEDS: NS 1,000 ML IV SCH ×2 (18:45→20:50)
[2021-03-12] MEDS: HumaLOG INSULIN (NovoLOG) PER UNIT SC SCH ×2 (19:40→23:55)
[2021-03-12] MEDS: LEVEMIR (INSULIN DETEMIR) 1 UNITS/0.01ML SC SCH (19:40)
[2021-03-12 20:00] VITALS: BP 151/65
[2021-03-12 20:44] LABS: HEMOGLOBIN A1c 9.9 %
[2021-03-12] MEDS: HEPARIN SOD (PORCINE) 5000UNITS/ML 1ML VIAL/SYRINGE SQ SCH (20:49)
[2021-03-13] VITALS: BP 142/71
[2021-03-13] MEDS: NS 1,000 ML IV SCH ×2 (00:46→06:58)
[2021-03-13 04:00] VITALS: BP 171/66
[2021-03-13 05:31] LABS: HEMATOCRIT 33.9 % (36.0-47.0); MEAN CORPUSCULAR HEMOGLOBIN 32.4 pg (27.0-33.0); MEAN CORPUSCULAR HGB CONC 31.6 g/dl (32.0-36.5); MEAN CORPUSCULAR VOLUME 102.7 fl (80.0-96.0); PLATELET COUNT, AUTOMATED 176 10^3/uL (150-450); WHITE BLOOD COUNT 13.3 10^3/uL (4.0-10.0)
[2021-03-13 05:32] LABS: HEMOGLOBIN 10.7 g/dl (12.0-15.5)
[2021-03-13] MEDS: HumaLOG INSULIN (NovoLOG) PER UNIT SC SCH ×4 (05:54→21:00)
[2021-03-13 06:20] LABS: ALBUMIN 2.8 GM/DL (3.2-5.2); BILIRUBIN,TOTAL 0.6 MG/DL (0.2-1.0); CALCIUM LEVEL 8.4 MG/DL (8.8-10.2); CREATININE FOR GFR 1.46 MG/DL (0.55-1.30); POTASSIUM SERUM 3.9 MEQ/L (3.5-5.1); TOTAL PROTEIN 5.8 GM/DL (6.4-8.2)
--- NOTE | 2021-03-13 06:29 | ECGEPIP ---
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
[2021-03-13 08:00] VITALS: BP 174/72
[2021-03-13] MEDS ORDERED: ACETAMINOPHEN 325 MG TAB PO PRN (08:25)
[2021-03-13] MEDS ORDERED: traZODone 50 MG TAB PO PRN (08:25)
[2021-03-13] MEDS ORDERED: COMBIVENT RESPIMAT 100-20MCG INHALER 4GM INH PRN (08:25)
[2021-03-13] MEDS ORDERED: FAMOTIDINE 20 MG TAB PO PRN (08:25)
[2021-03-13] MEDS: NS 0.45% 1,000 ML IV SCH ×3 (08:59→21:04)
[2021-03-13] MEDS: LEVEMIR (INSULIN DETEMIR) 1 UNITS/0.01ML SC SCH (09:37)
[2021-03-13] MEDS: CYANOCOBALAMIN 500 MCG TAB PO SCH (09:38)
[2021-03-13] MEDS: MELOXICAM (MOBIC) 7.5 MG TAB PO SCH (09:38)
[2021-03-13] MEDS: HEPARIN SOD (PORCINE) 5000UNITS/ML 1ML VIAL/SYRINGE SQ SCH ×2 (09:38→21:04)
[2021-03-13] MEDS: TIMOLOL MALEATE 0.25% OPHTH SOLN 5 ML OU SCH ×2 (09:38→21:04)
[2021-03-13] MEDS: LEVOTHYROXINE 100MCG TABLET (0.1MG) PO SCH (09:38)
[2021-03-13] MEDS: LEVOTHYROXINE 12.5MCG PER 1/2 TAB (0.0125MG) PO SCH (09:38)
[2021-03-13 12:00] VITALS: BP 169/68
--- NOTE | 2021-03-13 12:14 | IPNPDOC ---
Text Note Date of Service The patient was seen on 03/13/21. NOTE SUBJECTIVE: -No acute events -Now awake, oriented to self but still confused otherwise, pulled out her IV this morning -Denies chest pain, palpitations, abdominal pain, back pain, headache, nausea. OBJECTIVE: VITAL SIGNS: see below General: Alert, awake, confused, knows self but otherwise disoriented HEENT: Normocephalic, atraumatic, dry oral mucous. PEERLA, EOMI Neck: No lymphadenopathy or thyromegaly Cardiac: Regular rate and rhythm, no murmurs, normal S1, normal S2 Pulm: Clear to auscultation bilaterally. No wheezes, rhonchi, rales Abd: Nondistended, nontender to palpation, normal bowel sounds Ext: No edema bilateral lower extremities Neuro: Confused, no obvious focal deficits. Moving all 4 extremities Psych: AOx1 LABORATORY DATA: Reviewed WBC 13.3 Hgb 10.4 Platelets 176 Na 152 K 3.9 Cr 1.46 CK 1074 IMAGING: CT head: 1. Ventriculomegaly and cortical atrophy proportionate and unchanged. 2. Chronic small vessel white matter ischemic changes, stable. 3. Old lacunar infarct right thalamus and no new lacunar infarct, intracranial hemorrhage, vascular territory infarct, mass or mass effect. 4. Skull base and calvarium without fracture or focal lesion in the visualized sinuses and mastoids clear. CXR: There is no acute cardiopulmonary disease. There is mild cardiomegaly status quo. MICROBIOLOGY: F/u UCx, Bcx x 2 sets ASSESSMENT: 66-year-old W with a history of hypertension, asplenia, depression, hypothyroidism, hyperlipidemia, diabetes type 2 who was admitted for acute metabolic encephalopathy secondary to UTI w/ sepsis, dehydration and rhab domyolysis. PLAN: UTI, sepsis: Presenting WBC was 16 K, lactic acid 5.1, afebrile, positive UA -Follow up blood cultures, urine culture, daily CBC -Started on empiric IV ceftriaxone -Change IVF to 1/2NS at 150mL/h Acute metabolic encephalopathy likely secondary to UTI, sepsis, dehydration -Confused from her baseline which is reportedly normally awake alert oriented 3 -CT of the head negative -UTI tx above -Follow up blood cultures, urine culture, daily CBC -IVF: 1/2NS at 150mL/h DM type II -BS uncontrolled 342 -F/u HbA1c -FS ACHS, ISS, 1/2NS at 150mL/h Acute kidney injury likely 2/2 to dehydration, rhabdomyolysis and medications -Cr 1.89 at presentation, baseline normal, now improving -Holding and avoiding nephrotoxic meds -Change IVF to 1/2NS at 150mL/h -Daily BMP Rhabdomyolysis status post fall and downtime likely days -CK 1200, creatinine elevated at 1.89 -Cycle CKs daily -Change IVF to 1/2NS at 150mL/h Lactic acidosis secondary to sepsis: resolved -Lactic acid 5.1, CO2 18 Hypernatremia: -Change IVF to 1/2NS at 150mL/h Fall, hx of frequent falls -Found down -PT/OT as mentation improves Hypertension -stop Hydralazine PRN -Holding ARB, start amlodipine 10mg daily Hypothyroidism -TSH slightly elevated, check free t4 -restart levothyroxine Hyperlipidemia -restart home PO meds Overactive bladder -restart home PO meds GERD -PPI DVT prophylaxis -Heparin DISPOSITION: Admitted as inpatient, PCU. Will need PT/OT. From home, consult PFS. Full Code. VS,Fishbone, I+O VS, Fishbone, I+O Laboratory Tests 03/12/21 10:33 03/13/21 05:01 Vital Signs Date Time Temp Pulse Resp B/P (MAP) Pulse Ox O2 Delivery O2 Flow Rate FiO2 03/13/21 04:00 98.0 55 20 171/66 (101) 99 Room Air I&O- Last 24 Hours up to 6 AM 03/13/21 05:59 Intake Total 1500 ml Output Total 875 ml Balance 625 ml LATANYA MARIN MD Mar 13, 2021 08:38
[2021-03-13] MEDS: cefTRIAXone SOD 1 GM in D5W MINI-BAG PLUS 50 ML IV SCH (15:38)
[2021-03-13 16:00] VITALS: BP 184/78
[2021-03-13 20:00] VITALS: BP 141/63
[2021-03-14] VITALS: BP 165/72
[2021-03-14 04:00] VITALS: BP 149/67
[2021-03-14] MEDS: LEVOTHYROXINE 100MCG TABLET (0.1MG) PO SCH (05:21)
[2021-03-14] MEDS: LEVOTHYROXINE 12.5MCG PER 1/2 TAB (0.0125MG) PO SCH (05:21)
[2021-03-14] MEDS: NS 0.45% 1,000 ML IV SCH (05:22)
[2021-03-14 05:51] LABS: HEMATOCRIT 36.4 % (36.0-47.0); HEMOGLOBIN 11.4 g/dl (12.0-15.5); MEAN CORPUSCULAR HEMOGLOBIN 32.1 pg (27.0-33.0); MEAN CORPUSCULAR HGB CONC 31.3 g/dl (32.0-36.5); MEAN CORPUSCULAR VOLUME 102.5 fl (80.0-96.0); PLATELET COUNT, AUTOMATED 167 10^3/uL (150-450); RED BLOOD COUNT 3.55 10^6/uL (4.00-5.40); WHITE BLOOD COUNT 11.9 10^3/uL (4.0-10.0)
[2021-03-14 06:17] LABS: ALBUMIN 2.8 GM/DL (3.2-5.2); BILIRUBIN,TOTAL 0.9 MG/DL (0.2-1.0); CREATININE FOR GFR 1.01 MG/DL (0.55-1.30); GLOMERULAR FILTRATION RATE 58.2 (>45); POTASSIUM SERUM 3.6 MEQ/L (3.5-5.1); TOTAL PROTEIN 6.6 GM/DL (6.4-8.2)
[2021-03-14] MEDS: HumaLOG INSULIN (NovoLOG) PER UNIT SC SCH ×4 (07:30→21:00)
[2021-03-14 08:00] VITALS: BP 158/76
[2021-03-14] MEDS: HEPARIN SOD (PORCINE) 5000UNITS/ML 1ML VIAL/SYRINGE SQ SCH ×2 (09:07→21:52)
[2021-03-14] MEDS: MELOXICAM (MOBIC) 7.5 MG TAB PO SCH (09:08)
[2021-03-14] MEDS: LEVEMIR (INSULIN DETEMIR) 1 UNITS/0.01ML SC SCH (09:08)
[2021-03-14] MEDS: TIMOLOL MALEATE 0.25% OPHTH SOLN 5 ML OU SCH ×2 (09:08→21:52)
[2021-03-14] MEDS: CYANOCOBALAMIN 500 MCG TAB PO SCH (09:08)
[2021-03-14] MEDS: cefTRIAXone SOD 1 GM in D5W MINI-BAG PLUS 50 ML IV SCH (15:25)
[2021-03-14 16:00] VITALS: BP 116/56
--- NOTE | 2021-03-14 16:56 | IPNPDOC ---
Text Note Date of Service The patient was seen on 03/14/21. NOTE SUBJECTIVE: -No acute events -Doing very well, now fully oriented -Denies chest pain, palpitations, abdominal pain, back pain, headache, nausea. OBJECTIVE: VITAL SIGNS: see below General: Alert, awake, oriented, conversational HEENT: Normocephalic, atraumatic, MMM. PEERLA, EOMI Neck: No lymphadenopathy or thyromegaly Cardiac: Regular rate and rhythm, no murmurs, normal S1, normal S2 Pulm: Clear to auscultation bilaterally. No wheezes, rhonchi, rales Abd: Nondistended, nontender to palpation, normal bowel sounds Ext: No edema bilateral lower extremities Neuro: No focal deficits. Moving all 4 extremities Psych: AOx3 LABORATORY DATA: Reviewed Cr now 1.01 WBC 11.9 IMAGING: CT head: 1. Ventriculomegaly and cortical atrophy proportionate and unchanged. 2. Chronic small vessel white matter ischemic changes, stable. 3. Old lacunar infarct right thalamus and no new lacunar infarct, intracranial hemorrhage, vascular territory infarct, mass or mass effect. 4. Skull base and calvarium without fracture or focal lesion in the visualized sinuses and mastoids clear. CXR: There is no acute cardiopulmonary disease. There is mild cardiomegaly status quo. MICROBIOLOGY: F/u UCx, Bcx x 2 sets ASSESSMENT: 66-year-old W with a history of hypertension, asplenia, depression, hypothyroidism, hyperlipidemia, diabetes type 2 who was admitted for acute metabolic encephalopathy secondary to UTI w/ sepsis, dehydration and rhabdomyolysis. PLAN: UTI, sepsis: Presenting WBC was 16 K, lactic acid 5.1, afebrile, positive UA -Follow up blood cultures, urine culture, daily CBC -Switch IV ceftriaxone to PO levaquin. Unfortunately UCx was negative, but will complete a 5d course. -DC IVF -DC harding Acute metabolic encephalopathy secondary to UTI, sepsis, dehydration: resolved -CT of the head negative -UTI tx above -Follow up blood cultures, urine culture, daily CBC -s/p IVF DM type II -BS uncontrolled 342 -F/u HbA1c -FS ACHS, ISS, 1/2NS at 150mL/h Acute kidney injury likely 2/2 to dehydration, rhabdomyolysis and medications: resolved -Cr 1.89 at presentation, baseline normal, now at baseline -Holding and avoiding nephrotoxic meds -Will now stop fluids -Daily BMP Rhabdomyolysis status post fall and downtime likely days: improved -CK 1200, creatinine elevated at 1.89 -s/p fluids Lactic acidosis secondary to sepsis: resolved Hypernatremia: resolved -s/p fluids Fall, hx of frequent falls -PT/OT Hypertension -was holding ARB, on amlodipine 10mg daily Hypothyroidism -TSH slightly elevated, check free t4 -restart levothyroxine Hyperlipidemia -cont home PO meds Overactive bladder -cont home PO meds GERD -cont PPI DVT prophylaxis -Heparin DISPOSITION: medsurg, PT/OT. likely home tomorrow VS,Fishbone, I+O VS, Fishbone, I+O Laboratory Tests 03/14/21 05:02 Vital Signs Date Time Temp Pulse Resp B/P (MAP) Pulse Ox O2 Delivery O2 Flow Rate FiO2 03/14/21 09:08 60 158/76 03/14/21 08:00 98.6 18 94 Room Air I&O- Last 24 Hours up to 6 AM 03/14/21 06:00 Intake Total 2475 ml Output Total 1475 ml Balance 1000 ml LATANYA MARIN MD Mar 14, 2021 16:56
[2021-03-14 20:00] VITALS: BP 106/58
[2021-03-15 04:00] VITALS: BP 116/67
[2021-03-15] MEDS: LEVOTHYROXINE 100MCG TABLET (0.1MG) PO SCH (05:40)
[2021-03-15] MEDS: LEVOTHYROXINE 12.5MCG PER 1/2 TAB (0.0125MG) PO SCH (05:40)
[2021-03-15 05:49] LABS: HEMATOCRIT 34.4 % (36.0-47.0); MEAN CORPUSCULAR HEMOGLOBIN 32.2 pg (27.0-33.0); MEAN CORPUSCULAR VOLUME 100.6 fl (80.0-96.0); PLATELET COUNT, AUTOMATED 141 10^3/uL (150-450); RED BLOOD COUNT 3.42 10^6/uL (4.00-5.40); WHITE BLOOD COUNT 13.3 10^3/uL (4.0-10.0)
[2021-03-15] MEDS ORDERED: LevoFLOXacin 750 MG TABLET PO SCH (06:00)
[2021-03-15 06:11] LABS: ALBUMIN 2.7 GM/DL (3.2-5.2); BILIRUBIN,TOTAL 0.7 MG/DL (0.2-1.0); CALCIUM LEVEL 8.1 MG/DL (8.8-10.2); CREATININE FOR GFR 1.23 MG/DL (0.55-1.30); GLOMERULAR FILTRATION RATE 46.4 (>45); POTASSIUM SERUM 3.7 MEQ/L (3.5-5.1); TOTAL PROTEIN 6.4 GM/DL (6.4-8.2)
[2021-03-15 08:00] VITALS: BP 110/59
[2021-03-15] MEDS: HumaLOG INSULIN (NovoLOG) PER UNIT SC SCH (08:50)
[2021-03-15 08:52] VITALS: BP 110/59
[2021-03-15] MEDS: TIMOLOL MALEATE 0.25% OPHTH SOLN 5 ML OU SCH (08:52)
[2021-03-15] MEDS: HEPARIN SOD (PORCINE) 5000UNITS/ML 1ML VIAL/SYRINGE SQ SCH (08:52)
[2021-03-15] MEDS: CYANOCOBALAMIN 500 MCG TAB PO SCH (08:52)
[2021-03-15] MEDS: MELOXICAM (MOBIC) 7.5 MG TAB PO SCH (08:52)
[2021-03-15] MEDS: LEVEMIR (INSULIN DETEMIR) 1 UNITS/0.01ML SC SCH (08:52)
[2021-03-15] MEDS ORDERED: LEVO750T13 PO (09:36)
[2021-03-15] MEDS ORDERED: AMLO1TAB25 PO (09:36)
[2021-03-15 12:00] VITALS: BP 115/56
--- NOTE | 2021-03-15 12:04 | DS.PDOC ---
Discharge Summary General Date of Admission Mar 12, 2021 at 14:38 Date of Discharge 03/15/2021 Attending Physician: LATANYA MARIN MD Discharge Summary PROCEDURES PERFORMED DURING STAY: None ADMITTING DIAGNOSES: LILIANE UTI Dehydration Metabolic encephalopathy Rhabdomyolysis DISCHARGE DIAGNOSES: LILIANE UTI Dehydration Metabolic encephalopathy Rhabdomyolysis Lactic acidosis Hypertension. Asplenia. Depression. Hypothyroidism Hyperlipidemia Overactive bladder GERD Type 2 diabetes Chronic anemia COMPLICATIONS/CHIEF COMPLAINT: Liliane,Uti,Encephalopathy,Rhabdomyolysis. HISTORY OF PRESENT ILLNESS: 66-year-old W with past medical history of hypertension, asplenia, depression, h ypothyroidism, hyperlipidemia, diabetes type 2 who presented to the emergency room via EMS after being found down by her home health aide. Patient was a poor historian and therefore a lot of my history was obtained from prior notes. The patient was last seen well on 03/09/2021 at her baseline, awake, alert, oriented 3. The patient was not able to recount the events of what happened to the home health aide. She appeared weak, with dry oral mucosa, incontinent of urine. She was sent to the emergency room to be further evaluated by EMS. HOSPITAL COURSE: In the emergency room vital signs showed temperature 98.1, heart rate 78, respiratory rate 16, blood pressure 187/87, 99% on room air. UA positive, urine culture sent. CT of the head was negative for acute intracranial pathology, chest x-ray negative for acute cardiopulmonary findings. Respiratory panel was negative. Blood cultures and urine cultures were pending. The patient was confused and would repeat herself. She was unreliable in evaluating review of systems. The patient was started on IV fluids, IV ceftriaxone. Lactic acid retur asia as being elevated at 5.1, CK 1200, CO2 18, creatinine 1.89, WBC 16, blood sugar 342. The patient was ultimately admitted for UTI, sepsis, dehydration, rhabdomyolysis. She was hydrated with NS with resolution of lactic acidosis, rhabdomyolysis and LILIANE. Metabolic encephalopathy also cleared by day 2. Antibiotics were ultimately switched to levaquin PO to complete a course, despite UCx being negative. DISCHARGE MEDICATIONS: Please see below. ALLERGIES: Please see below. PHYSICAL EXAMINATION ON DISCHARGE: VITAL SIGNS: Please see below. General: Alert, awake, oriented, conversational HEENT: Normocephalic, atraumatic, MMM. PERRLA, EOMI Neck: No lymphadenopathy or thyromegaly Cardiac: Regular rate and rhythm, no murmurs, normal S1, normal S2 Pulm: Clear to auscultation bilaterally. No wheezes, rhonchi, rales Abd: Nondistended, nontender to palpation, normal bowel sounds Ext: No edema bilateral lower extremities Neuro: No focal deficits. Moving all 4 extremities Psych: AOx3 LABORATORY DATA: Please see below. IMAGING: CT head: 1. Ventriculomegaly and cortical atrophy proportionate and unchanged. 2. Chronic small vessel white matter ischemic changes, stable. 3. Old lacunar infarct right thalamus and no new lacunar infarct, intracranial hemorrhage, vascular territory infarct, mass or mass effect. 4. Skull base and calvarium without fracture or focal lesion in the visualized sinuses and mastoids clear. CXR: There is no acute cardiopulmonary disease. There is mild cardiomegaly status quo. PROGNOSIS: Good ACTIVITY: As tolerated DIET: Consistent carb, 2g sodium DISCHARGE PLAN: Home with 4 more days of levaquin DISPOSITION: Home DISCHARGE INSTRUCTIONS: Home with 4 more days of levaquin ITEMS TO FOLLOWUP ON ON OUTPATIENT: PCP follow up DISCHARGE CONDITION: Stable TIME SPENT ON DISCHARGE: 45 minutes. Vital Signs/I&Os Vital Signs Date Time Temp Pulse Resp B/P (MAP) Pulse Ox O2 Delivery O2 Flow Rate FiO2 03/15/21 08:52 71 110/59 03/15/21 08:00 97.8 16 97 Room Air I&O- Last 24 Hours up to 6 AM 03/15/21 05:59 Intake Total 1410 ml Output Total 600 ml Balance 810 ml Laboratory Data Labs 24H Laboratory Tests 2 03/14/21 12:19: Bedside Glucose (Misc Panel) 125H 03/14/21 17:55: Bedside Glucose (Misc Panel) 176H 03/14/21 21:50: Bedside Glucose (Misc Panel) 163H 03/15/21 05:19: Nucleated Red Blood Cells % (auto) 0.0, Anion Gap 9, Glomerular Filtration Rate 46.4, Calcium Level 8.1L, Total Bilirubin 0.7, Aspartate Amino Transf (AST/SGOT) 55H, Alanine Aminotransferase (ALT/SGPT) 45, Alkaline Phosphatase 80, Total Protein 6.4, Albumin 2.7L, Albumin/Globulin Ratio 0.7L CBC/BMP Laboratory Tests 03/15/21 05:19 FSBS Laboratory Tests Test 03/14/21 12:19 03/14/21 17:55 03/14/21 21:50 Range/Units Bedside Glucose (Misc Panel) 125 176 163 80-115 MG/DL Microbiology Microbiology 03/12/21 Urine Culture - Final, Complete 03/12/21 Respiratory Virus Panel (PCR) (SUKUMAR) - Final, Complete 03/12/21 Blood Culture - Preliminary, Resulted No Growth after 48 hours. All Specime... 03/12/21 Blood Culture - Preliminary, Resulted No Growth after 48 hours. All Specime... Discharge Medications Scheduled Amlodipine Besylate (Amlodipine Besylate) 10 Mg Tablet, 10 MG PO DAILY Brimonidine Tartrate/Timolol (Combigan 0.2%-0.5% Eye Drops) 5 Ml Drops, 1 DROP OU BID, (Reported) Cyanocobalamin (Vitamin B-12) (B-12) 1,000 Mcg Tablet, 1 TAB PO DAILY Empagliflozin (Jardiance) 25 Mg Tablet, 25 MG PO DAILY, (Reported) Insulin Aspart (Novolog) 100 Unit/1 Ml Cartridge, 1 DOSE SC AC, (Reported) PER SLIDING SCALE Insulin Glargine,Hum.rec.anlog (Lantus Solostar) 100 Unit/1 Ml Insuln.pen, 12 UNITS SC DAILY, (Reported) Levofloxacin (Levofloxacin) 750 Mg Tablet, 750 MG PO DAILY@06 Levothyroxine Sodium (Levothyroxine Sodium) 25 Mcg Tablet, 12.5 MCG PO DAILY, (Reported) TAKES WITH 200 MCG TAB FOR 212.5 MCG TOTAL DOSE Levothyroxine Sodium (Levothyroxine) 200 Mcg Capsule, 200 MCG PO DAILY, (Reported) TAKES WITH 12.5 MCG HALF-TAB FOR 212.5 MCG TOTAL DOSE Meloxicam (Meloxicam) 7.5 Mg Tablet, 7.5 MG PO DAILY, (Reported) Mirabegron (Myrbetriq) 25 Mg Tab.er.24h, 25 MG PO DAILY, (Reported) Scheduled PRN Acetaminophen (Acetaminophen) 325 Mg Tablet, 325 MG PO DAILY PRN for PAIN LEVEL 1-4, (Reported) Famotidine (Famotidine) 20 Mg Tablet, 20 MG PO QHS PRN for HEARTBURN, (Reported) Ipratropium/Albuterol Sulfate (Combivent Respimat 20-100 Mcg) 4 Gm Mist.inhal, 1 PUFF INH QID PRN for SHORTNESS OF BREATH, (Reported) Trazodone HCl (Trazodone HCl) 50 Mg Tablet, 25 MG PO QHS PRN for INSOMNIA, (Reported) Miscellaneous Medications [comments] , (Reported) MED LIST MADE WITH EXTERNAL MED HISTORY WELL LAST DISCHARGE Allergies Coded Allergies: hydrocodone (Unverified Adverse Reaction, Mild, "I just act crazy", 01/31/21) oxycodone (Verified Adverse Reaction, Mild, confusion, 11/04/20) LATANYA MARIN MD Mar 15, 2021 09:34
== END 2021-03-15 14:26 | disposition home health service (06) | DRG 871 ==
LOC: M ED 10:12 → M ED INP 14:38 → ENRESERV 15:15 → M PCU 18:28
PROVIDERS: ADMIT Internal Medicine; ATTEND Internal Medicine
DX: A41.9 Sepsis, unspecified organism (principal); G93.41 Metabolic encephalopathy; N39.0 Urinary tract infection, site not specified; N17.9 Acute kidney failure, unspecified; M62.82 Rhabdomyolysis; E87.2 Acidosis; Q89.01 Asplenia (congenital); E87.0 Hyperosmolality and hypernatremia; E86.0 Dehydration; I10 Essential (primary) hypertension; F32.A Depression, unspecified; E03.9 Hypothyroidism, unspecified; E78.5 Hyperlipidemia, unspecified; N32.81 Overactive bladder; K21.9 Gastro-esophageal reflux disease without esophagitis; E11.9 Type 2 diabetes mellitus without complications; D50.0 Iron deficiency anemia secondary to blood loss (chronic); R65.20 Severe sepsis without septic shock; Z96.651 Presence of right artificial knee joint; Z90.79 Acquired absence of other genital organ(s); Z96.643 Presence of artificial hip joint, bilateral; Z87.891 Personal history of nicotine dependence; R29.6 Repeated falls; Z20.822 Contact with and (suspected) exposure to COVID-19; Z79.4 Long term (current) use of insulin; Z79.84 Long term (current) use of oral hypoglycemic drugs; Z79.899 Other long term (current) drug therapy; Z88.5 Allergy status to narcotic agent

== ENCOUNTER 2021-03-16 14:39 | Inpatient (IN) | payer OTHER, MEDICAID ==
[~2021-03-16] VITALS: Ht 152.4 cm; Wt 84.0 kg
[~2021-03-16 14:39] MED LIST changes: +AMLO1TAB25 PO; +COMB0.2S OU; +LEVO750T13 PO; +[UNRECOGNIZED DRUG - OTHER]
--- OUTSIDE RECORDS SUMMARY | 2021-03-16 14:47 | CCD ---
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 If you continue you may have access to information: Regarding HIV / AIDS; Provided by facilities licensed or operated by the [facility] Office of Mental Health; or Provided by the [facility] Office for People With Developmental Disabilities. If such information is present, then the following [facility] mandated warning applies: This information has [...] law may result in a fine or prison sentence or both. A general authorization for the release of medical or other information is NOT sufficient authorization for further disc losure. Allergies and Adverse Reactions Type Description Substance Reaction Status Data Source(s ) Propensity to adverse reactions Morphine Sulfate Morphine Confusion Active eCW1 ([facility]) No Known Environmental Allergies No Known Environmental Al lergies [facility] No Known Food Allergies No Known Food Allergies [facility] Propensity to adverse reactions OXYCODONE HCL-ACETAMINOPHEN OXYCODONE HCL-ACETAMINOPHEN UNKNOWN [facility] Family History Family Member Name Family Member Gender Family Member Status Date o f Status Description Data Source(s) Unknown Female Problem MEDENT ([facility]) Unknown Female Problem MEDENT ([facility]) Encounters Encounter Providers Location Date Indications Data Source(s ) [place] [address] [facility] [address] 03/06/2021 12:00:00 AM EDT eCW1 ([facility]) [place] [address] [facility] [address] 02/13/2021 12:00:00 AM EDT eCW1 ([facility]) [place] [address] [facility] [address] 02/05/2021 12:00:00 AM EDT eCW1 ([facility]) [place] [address] [facility] [address] 01/31/2021 12:00:00 AM EDT eCW1 ([facility]) OFFICE OUTPATIENT VISIT 15 MINUTES Attender: JIGAR GATICA Phys ical Therapy 12/14/2020 02:00:00 PM EDT MEDENT ([facility]) [place] [address] [facility] [address] 12/11/2020 12:00:00 AM EDT eCW1 ([facility]) Outpatient [address] [facility] [address] 11/28/2020 12:00:00 AM EDT eCW1 ([facility]) Unknown [address] [facility] [address] 11/24/2020 12:00:00 AM EDT eCW1 ([facility]) [place] [address] [facility] [address] 11/24/2020 12:00:00 AM EDT eCW1 ([facility]) Unknown [address] [facility] [address] 11/24/2020 12:00:00 AM EDT eCW1 ([facility]) Unknown [address] [facility] [address] 11/24/2020 12:00:00 AM EDT eCW1 ([facility]) [place] [address] [facility] [address] 11/24/2020 12:00:00 AM EDT eCW1 ([facility]) Unknown [address] [facility] [address] 11/24/2020 12:00:00 AM EDT eCW1 ([facility]) Unknown [address] [facility] [address] 11/23/2020 12:00:00 AM EDT eCW1 ([facility]) Unknown [address] [facility] [address] 11/23/2020 12:00:00 AM EDT eCW1 ([facility]) Unknown [address] [facility] [address] 11/22/2020 12:00:00 AM EDT eCW1 ([facility]) Unknown [address] [facility] [address] 11/22/2020 12:00:00 AM EDT eCW1 ([facility]) Unknown [address] [facility] [address] 11/21/2020 12:00:00 AM EDT eCW1 ([facility]) Unknown [address] [facility] [address] 11/20/2020 12:00:00 AM EDT eCW1 ([facility]) Unknown [address] [facility] [address] 11/17/2020 12:00:00 AM EDT eCW1 ([facility]) Unknown [address] [facility] [address] 11/15/2020 12:00:00 AM EDT eCW1 ([facility]) Unknown [address] [facility] [address] 11/14/2020 12:00:00 AM EDT eCW1 ([facility]) Unknown [address] [facility] [address] 11/14/2020 12:00:00 AM EDT eCW1 ([facility]) Unknown [address] [facility] [address] 11/13/2020 12:00:00 AM EDT eCW1 ([facility]) Outpatient [address] [facility] [address] 11/09/2020 12:00:00 AM EDT [facility]CW1 [facility] Unknown [address] [facility] [address] 10/27/2020 12:00:00 AM EDT eCW1 ([facility]) Outpatient [address] [facility] [address] 10/05/2020 12:00:00 AM EDT eCW1 [facility] Outpatient Attender: Norma Asher MDConsultant: PCP NO 07/12/2020 07:15:00 AM EST - 07/12/2020 09:08:00 AM EST [facility] Patient discharged. [place] [address] [facility] [address] 06/26/2020 12:00:00 AM EST eCW1 ([facility]) Outpatient [address] [facility] [address] 06/22/2020 12:00:00 AM EST eCW1 ([facility]) Unknown [address] [facility] [address] 06/06/2020 12:00:00 AM EST eCW1 ([facility]) Unknown [address] [facility] [address] 06/06/2020 12:00:00 AM EST eCW1 ([facility]) Unknown [address] [facility] [address] 05/26/2020 12:00:00 AM EST eCW1 ([facility]) Outpatient Attender: Norma Asher MDConsultant: PCP NO 05/17/2020 09:00:00 AM EST - 05/17/2020 12:25:00 PM EST [facility] Patient discharged. Unknown [address] [facility] [address] 05/15/2020 12:00:00 AM EST eCW1 ([facility]) Outpatient Attender: Norma Asher MDConsultant: PCP NO 05/10/2020 08:18:02 AM EST - 05/10/2020 09:40:00 AM EST [facility] Patient discharged. Outpatient Attender: CHAN ARAIZA MD [email or web address] 12:00:00 AM EDT - 02/04/2020 11:56:35 AM EDT [facility] Immunizations Vaccine Date Status Description Data Source(s) Moderna #2 dose COVID-19(given elsewhere) SARSCOV2 VAC 100MCG/0.5ML IM 08/16/2020 01:15:00 PM EDT completed eCW1 ([facility]) Moderna #2 dose COVID-19(given elsewhere) SARSCOV2 VAC 100MCG/0.5ML IM 08/16/2020 01:15:00 PM EDT completed eCW1 ([facility]) Moderna #2 dose COVID-19(given elsewhere) SARSCOV2 VAC 100MCG/0.5ML IM 08/16/2020 01:15:00 PM EDT completed eCW1 ([facility]) Moderna #2 dose COVID-19(given elsewhere) SARSCOV2 VAC 100MCG/0.5ML IM 08/16/2020 01:15:00 PM EDT completed eCW1 ([facility]) Moderna #2 dose COVID-19(given elsewhere) SARSCOV2 VAC 100MCG/0.5ML IM 08/16/2020 01:15:00 PM EDT completed eCW1 ([facility]) Moderna #2 dose COVID-19(given elsewhere) SARSCOV2 VAC 100MCG/0.5ML IM 08/16/2020 01:15:00 PM EDT completed eCW1 ([facility]) Moderna #2 dose COVID-19(given elsewhere) SARSCOV2 VAC 100MCG/0.5ML IM 08/16/2020 01:15:00 PM EDT completed eCW1 ([facility]) Moderna #2 dose COVID-19(given elsewhere) SARSCOV2 VAC 100MCG/0.5ML IM 08/16/2020 01:15:00 PM EDT completed eCW1 ([facility]) Moderna #2 dose COVID-19(given elsewhere) SARSCOV2 VAC 100MCG/0.5ML IM 08/16/2020 01:15:00 PM EDT completed eCW1 ([facility]) Moderna #2 dose COVID-19(given elsewhere) SARSCOV2 VAC 100MCG/0.5ML IM 08/16/2020 01:15:00 PM EDT completed eCW1 ([facility]) Moderna #2 dose COVID-19(given elsewhere) SARSCOV2 VAC 100MCG/0.5ML IM 08/16/2020 01:15:00 PM EDT completed eCW1 ([facility]) Moderna #2 dose COVID-19(given elsewhere) SARSCOV2 VAC 100MCG/0.5ML IM 08/16/2020 01:15:00 PM EDT completed eCW1 ([facility]) Moderna #2 dose COVID-19(given elsewhere) SARSCOV2 VAC 100MCG/0.5ML IM 08/16/2020 01:15:00 PM EDT completed eCW1 ([facility]) Moderna #2 dose COVID-19(given elsewhere) SARSCOV2 VAC 100MCG/0.5ML IM 08/16/2020 01:15:00 PM EDT completed eCW1 ([facility]) Moderna #2 dose COVID-19(given elsewhere) SARSCOV2 VAC 100MCG/0.5ML IM 08/16/2020 01:15:00 PM EDT completed eCW1 ([facility]) Moderna #2 dose COVID-19(given elsewhere) SARSCOV2 VAC 100MCG/0.5ML IM 08/16/2020 01:15:00 PM EDT completed eCW1 ([facility]) Moderna #2 dose COVID-19(given elsewhere) SARSCOV2 VAC 100MCG/0.5ML IM 08/16/2020 01:15:00 PM EDT completed eCW1 ([facility]) Moderna #2 dose COVID-19(given elsewhere) SARSCOV2 VAC 100MCG/0.5ML IM 08/16/2020 01:15:00 PM EDT completed eCW1 ([facility]) Moderna #2 dose COVID-19(given elsewhere) SARSCOV2 VAC 100MCG/0.5ML IM 08/16/2020 01:15:00 PM EDT completed eCW1 ([facility]) Moderna #2 dose COVID-19(given elsewhere) SARSCOV2 VAC 100MCG/0.5ML IM 08/16/2020 01:15:00 PM EDT completed eCW1 ([facility]) Moderna #2 dose COVID-19(given elsewhere) SARSCOV2 VAC 100MCG/0.5ML IM 08/16/2020 01:15:00 PM EDT completed eCW1 ([facility]) Moderna #2 dose COVID-19(given elsewhere) SARSCOV2 VAC 100MCG/0.5ML IM 08/16/2020 01:15:00 PM EDT completed eCW1 ([facility]) Moderna #2 dose COVID-19 (given elsewhere) SARSCOV2 VA C 100MCG/0.5ML IM 08/16/2020 01:15:00 PM EDT completed eCW1 ([facility]) Moderna #2 dose COVID-19 (given elsewhere) SARSCOV2 VA C 100MCG/0.5ML IM 08/16/2020 01:15:00 PM EDT completed eCW1 ([facility]) Moderna #2 dose COVID-19 (given elsewhere) SARSCOV2 VA C 100MCG/0.5ML IM 08/16/2020 01:15:00 PM EDT completed eCW1 ([facility]) Moderna #2 dose COVID-19(given elsewhere) SARSCOV2 VAC 100MCG/0.5ML IM 08/16/2020 01:15:00 PM EDT completed eCW1 ([facility]) COVID-19 VACCINE Moderna 08/16/2020 12:00:00 AM EDT completed [facility] Vaccine Series Complete: YESThis Data wa s Submitted to [facility] Via [employer]. COVID-19 VACCINE Moderna 07/19/2020 12:00:00 AM EDT completed [employer] Vaccine Series Complete: NOThis Data was Submitted to [facility] Via [employer]. Moderna #1 dose COVID-19(given elsewhere) SARSCOV2 VAC 100MCG/0.5ML IM 07/15/2020 01:14:00 PM EST completed eCW1 ([facility]) Moderna #1 dose COVID-19(given elsewhere) SARSCOV2 VAC 100MCG/0.5ML IM 07/15/2020 01:14:00 PM EST completed eCW1 ([facility]) Moderna #1 dose COVID-19(given elsewhere) SARSCOV2 VAC 100MCG/0.5ML IM 07/15/2020 01:14:00 PM EST completed eCW1 ([facility]) Moderna #1 dose COVID-19(given elsewhere) SARSCOV2 VAC 100MCG/0.5ML IM 07/15/2020 01:14:00 PM EST completed eCW1 ([facility]) Moderna #1 dose COVID-19(given elsewhere) SARSCOV2 VAC 100MCG/0.5ML IM 07/15/2020 01:14:00 PM EST completed eCW1 ([facility]) Moderna #1 dose COVID-19(given elsewhere) SARSCOV2 VAC 100MCG/0.5ML IM 07/15/2020 01:14:00 PM EST completed eCW1 ([facility]) Moderna #1 dose COVID-19(given elsewhere) SARSCOV2 VAC 100MCG/0.5ML IM 07/15/2020 01:14:00 PM EST completed eCW1 ([facility]) Moderna #1 dose COVID-19(given elsewhere) SARSCOV2 VAC 100MCG/0.5ML IM 07/15/2020 01:14:00 PM EST completed eCW1 ([facility]) Moderna #1 dose COVID-19(given elsewhere) SARSCOV2 VAC 100MCG/0.5ML IM 07/15/2020 01:14:00 PM EST completed eCW1 ([facility]) Moderna #1 dose COVID-19(given elsewhere) SARSCOV2 VAC 100MCG/0.5ML IM 07/15/2020 01:14:00 PM EST completed eCW1 ([facility]) Moderna #1 dose COVID-19(given elsewhere) SARSCOV2 VAC 100MCG/0.5ML IM 07/15/2020 01:14:00 PM EST completed eCW1 ([facility]) Moderna #1 dose COVID-19(given elsewhere) SARSCOV2 VAC 100MCG/0.5ML IM 07/15/2020 01:14:00 PM EST completed eCW1 ([facility]) Moderna #1 dose COVID-19(given elsewhere) SARSCOV2 VAC 100MCG/0.5ML IM 07/15/2020 01:14:00 PM EST completed eCW1 ([facility]) Moderna #1 dose COVID-19(given elsewhere) SARSCOV2 VAC 100MCG/0.5ML IM 07/15/2020 01:14:00 PM EST completed eCW1 ([facility]) Moderna #1 dose COVID-19(given elsewhere) SARSCOV2 VAC 100MCG/0.5ML IM 07/15/2020 01:14:00 PM EST completed eCW1 ([facility]) Moderna #1 dose COVID-19(given elsewhere) SARSCOV2 VAC 100MCG/0.5ML IM 07/15/2020 01:14:00 PM EST completed eCW1 ([facility]) Moderna #1 dose COVID-19(given elsewhere) SARSCOV2 VAC 100MCG/0.5ML IM 07/15/2020 01:14:00 PM EST completed eCW1 ([facility]) Moderna #1 dose COVID-19(given elsewhere) SARSCOV2 VAC 100MCG/0.5ML IM 07/15/2020 01:14:00 PM EST completed eCW1 ([facility]) Moderna #1 dose COVID-19(given elsewhere) SARSCOV2 VAC 100MCG/0.5ML IM 07/15/2020 01:14:00 PM EST completed eCW1 ([facility]) Moderna #1 dose COVID-19(given elsewhere) SARSCOV2 VAC 100MCG/0.5ML IM 07/15/2020 01:14:00 PM EST completed eCW1 ([facility]) Moderna #1 dose COVID-19(given elsewhere) SARSCOV2 VAC 100MCG/0.5ML IM 07/15/2020 01:14:00 PM EST completed eCW1 ([facility]) Moderna #1 dose COVID-19(given elsewhere) SARSCOV2 VAC 100MCG/0.5ML IM 07/15/2020 01:14:00 PM EST completed eCW1 ([facility]) Moderna #1 dose COVID-19 (given elsewhere) SARSCOV2 VA C 100MCG/0.5ML IM 07/15/2020 01:14:00 PM EST completed eCW1 ([facility]) Moderna #1 dose COVID-19 (given elsewhere) SARSCOV2 VA C 100MCG/0.5ML IM 07/15/2020 01:14:00 PM EST completed eCW1 ([facility]) Moderna #1 dose COVID-19 (given elsewhere) SARSCOV2 VA C 100MCG/0.5ML IM 07/15/2020 01:14:00 PM EST completed eCW1 ([facility]) Moderna #1 dose COVID-19(given elsewhere) SARSCOV2 VAC 100MCG/0.5ML IM 07/15/2020 01:14:00 PM EST completed eCW1 ([facility]) influenza, recombinant, quadrIvalent,injectable, prese rvative free 01/27/2020 01:54:00 PM EDT completed eCW1 ([facility]) influenza, recombinant, quadrIvalent,injectable, prese rvative free 01/27/2020 01:54:00 PM EDT completed eCW1 ([facility]) influenza, recombinant, quadrIvalent,injectable, prese rvative free 01/27/2020 01:54:00 PM EDT completed eCW1 ([facility]) influenza, recombinant, quadrIvalent,injectable, prese rvative free 01/27/2020 01:54:00 PM EDT completed eCW1 ([facility]) influenza, recombinant, quadrIvalent,injectable, prese rvative free 01/27/2020 01:54:00 PM EDT completed eCW1 ([facility]) influenza, recombinant, quadrIvalent,injectable, prese rvative free 01/27/2020 01:54:00 PM EDT completed eCW1 ([facility]) influenza, recombinant, quadrIvalent,injectable, prese rvative free 01/27/2020 01:54:00 PM EDT completed eCW1 ([facility]) influenza, recombinant, quadrIvalent,injectable, prese rvative free 01/27/2020 01:54:00 PM EDT completed eCW1 ([facility]) influenza, recombinant, quadrIvalent,injectable, prese rvative free 01/27/2020 01:54:00 PM EDT completed eCW1 ([facility]) influenza, recombinant, quadrIvalent,injectable, prese rvative free 01/27/2020 01:54:00 PM EDT completed eCW1 ([facility]) influenza, recombinant, quadrIvalent,injectable, prese rvative free 01/27/2020 01:54:00 PM EDT completed eCW1 ([facility]) influenza, recombinant, quadrIvalent,injectable, prese rvative free 01/27/2020 01:54:00 PM EDT completed eCW1 ([facility]) influenza, recombinant, quadrIvalent,injectable, prese rvative free 01/27/2020 01:54:00 PM EDT completed eCW1 ([facility]) influenza, recombinant, quadrIvalent,injectable, prese rvative free 01/27/2020 01:54:00 PM EDT completed eCW1 ([facility]) influenza, recombinant, quadrIvalent,injectable, prese rvative free 01/27/2020 01:54:00 PM EDT completed eCW1 ([facility]) influenza, recombinant, quadrIvalent,injectable, prese rvative free 01/27/2020 01:54:00 PM EDT completed eCW1 ([facility]) influenza, recombinant, quadrIvalent,injectable, prese rvative free 01/27/2020 01:54:00 PM EDT completed eCW1 ([facility]) influenza, recombinant, quadrIvalent,injectable, prese rvative free 01/27/2020 01:54:00 PM EDT completed eCW1 ([facility]) influenza, recombinant, quadrIvalent,injectable, prese rvative free 01/27/2020 01:54:00 PM EDT completed eCW1 ([facility]) influenza, recombinant, quadrIvalent,injectable, prese rvative free 01/27/2020 01:54:00 PM EDT completed eCW1 ([facility]) influenza, recombinant, quadrIvalent,injectable, prese rvative free 01/27/2020 01:54:00 PM EDT completed eCW1 ([facility]) influenza, recombinant, quadrIvalent,injectable, prese rvative free 01/27/2020 01:54:00 PM EDT completed eCW1 ([facility]) influenza, recombinant, quadrIvalent,injectable, prese rvative free 01/27/2020 01:54:00 PM EDT completed eCW1 ([facility]) influenza, recombinant, quadrIvalent,injectable, prese rvative free 01/27/2020 01:54:00 PM EDT completed eCW1 ([facility]) influenza, recombinant, quadrIvalent,injectable, prese rvative free 01/27/2020 01:54:00 PM EDT completed eCW1 ([facility]) influenza, recombinant, quadrIvalent,injectable, prese rvative free 01/27/2020 01:54:00 PM EDT completed eCW1 ([facility]) influenza, recombinant, quadrIvalent,injectable, prese rvative free 01/27/2020 01:54:00 PM EDT completed eCW1 ([facility]) Medications Medication Brand Name Start Date [...] { tablet} active Cyanocobalamin 1000 MCG eCW1 ([facility]) Acetaminophen 325 MG Oral Tablet Acetaminophen 325 MG 2020 12:00:00 AM EDT 1.0 {tablet_as_needed} active A cetaminophen 325 MG eCW1 ([facility]) meloxicam 7.5 MG Oral Tablet Meloxicam 7.5 MG Meloxicam 7.5 MG 02/02/2021 12:00:00 AM EDT 1.0 {tablet} active Me loxicam 7.5 MG eCW1 ([facility]) Cyanocobalamin 1000 MCG UNK 02/02/2021 12:00:00 AM EDT 1.0 { tablet} active Cyanocobalamin 1000 MCG eCW1 ([facility]) 12 HR Acetazolamide 500 MG Extended Rele ase Oral Capsule acetaZOLAMIDE ER 500 MG acetaZOLAMIDE ER 500 MG 02/02/2021 12:00:00 AM EDT 1.0 {capsule} active acetaZOLAMIDE ER 500 MG eCW1 ([facility]) BLOOD-GLUCOSE METER 02/02/2021 12:00:00 AM EDT misc 1 USE DIRECTED USE DIRECTED SOLD: 02/04/2021 Kely Mazariegos s meloxicam 7.5 MG Oral Tablet Meloxicam 7.5 MG Meloxicam 7.5 MG 02/02/2021 12:00:00 AM EDT 1.0 {tablet} active Me loxicam 7.5 MG eCW1 ([facility]) Polymyxin B 12249 UNT/ML / Trimethoprim 1 MG/ML Ophthalmic Solution Polymyxin B- Trimethoprim 05238-0.1 UNIT/ML Polymyxin B-Trimethoprim 39897-3.1 UNIT/ML 02/02/2021 12:00:00 AM EDT active Polymyxin B-Trimethoprim 16445- 0.1 UNIT/ML eCW1 ([facility]) Combivent Respimat 20-100 mcg/act UNK 02/02/2021 12:00:00 AM EDT 1.0 {puff} active Combivent Respimat 20-100 mcg/act eCW1 ([facility]) Cyanocobalamin 1000 MCG UNK 02/02/2021 12:00:00 AM EDT 1.0 { tablet} active Cyanocobalamin 1000 MCG eCW1 ([facility]) Combivent Respimat 20-100 mcg/act UNK 02/02/2021 12:00:00 AM EDT 1.0 {puff} active Combivent Respimat 20-100 mcg/act eCW1 ([facility]) Acetaminophen 325 MG Oral Tablet Acetaminophen 325 MG 2020 12:00:00 AM EDT 1.0 {tablet_as_needed} active A cetaminophen 325 MG eCW1 ([facility]) 12 HR Acetazolamide 500 MG Extended Rele ase Oral Capsule acetaZOLAMIDE ER 500 MG acetaZOLAMIDE ER 500 MG 02/02/2021 12:00:00 AM EDT 1.0 {capsule} active acetaZOLAMIDE ER 500 MG eCW1 ([facility]) 12 HR Acetazolamide 500 MG Extended Rele ase Oral Capsule acetaZOLAMIDE ER 500 MG acetaZOLAMIDE ER 500 MG 02/02/2021 12:00:00 AM EDT 1.0 {capsule} active acetaZOLAMIDE ER 500 MG eCW1 ([facility]) 12 HR Acetazolamide 500 MG Extended Rele ase Oral Capsule acetaZOLAMIDE ER 500 MG acetaZOLAMIDE ER 500 MG 02/02/2021 12:00:00 AM EDT 1.0 {capsule} active acetaZOLAMIDE ER 500 MG eCW1 ([facility]) meloxicam 7.5 MG Oral Tablet Meloxicam 7.5 MG Meloxicam 7.5 MG 02/02/2021 12:00:00 AM EDT 1.0 {tablet} active Me loxicam 7.5 MG eCW1 ([facility]) Polymyxin B 42229 UNT/ML / Trimethoprim 1 MG/ML Ophthalmic Solution Polymyxin B- Trimethoprim 75369-5.1 UNIT/ML Polymyxin B-Trimethoprim 29521-2.1 UNIT/ML 02/02/2021 12:00:00 AM EDT active Polymyxin B-Trimethoprim 14020- 0.1 UNIT/ML eCW1 ([facility]) Polymyxin B 49519 UNT/ML / Trimethoprim 1 MG/ML Ophthalmic Solution 10,000 unit- 1 mg/mL POLYMYXIN B SULF/TRIMETHOPRIM 02/02/2021 12:00:00 AM EDT drops 1 0 INSTILL 1 DROP IN THE RIGHT EYE SIX TIMES DAILY INSTILL 1 DROP IN THE RIGHT EYE SIX TIMES DAILY SOLD: 02/04/2021 Kely cruz Combivent Respimat 20-100 mcg/act UNK 02/02/2021 12:00:00 AM EDT 1.0 {puff} active Combivent Respimat 20-100 mcg/act eCW1 ([facility]) Cyanocobalamin 1000 MCG UNK 02/02/2021 12:00:00 AM EDT 1.0 { tablet} active Cyanocobalamin 1000 MCG eCW1 ([facility]) Polymyxin B 71115 UNT/ML / Trimethoprim 1 MG/ML Ophthalmic Solution Polymyxin B- Trimethoprim 35597-8.1 UNIT/ML Polymyxin B-Trimethoprim 39721-5.1 UNIT/ML 02/02/2021 12:00:00 AM EDT active Polymyxin B-Trimethoprim 58365- 0.1 UNIT/ML eCW1 ([facility]) Acetaminophen 325 MG Oral Tablet Acetaminophen 325 MG 2020 12:00:00 AM EDT 1.0 {tablet_as_needed} active A cetaminophen 325 MG eCW1 ([facility]) Combivent Respimat 20-100 mcg/act UNK 02/02/2021 12:00:00 AM EDT 1.0 {puff} active Combivent Respimat 20-100 mcg/act eCW1 ([facility]) Polymyxin B 85737 UNT/ML / Trimethoprim 1 MG/ML Ophthalmic Solution Polymyxin B- Trimethoprim 88898-0.1 UNIT/ML Polymyxin B-Trimethoprim 17696-3.1 UNIT/ML 02/02/2021 12:00:00 AM EDT active Polymyxin B-Trimethoprim 42157- 0.1 UNIT/ML eCW1 ([facility]) meloxicam 7.5 MG Oral Tablet Meloxicam 7.5 MG Meloxicam 7.5 MG 02/02/2021 12:00:00 AM EDT 1.0 {tablet} active Me loxicam 7.5 MG eCW1 ([facility]) Acetaminophen 325 MG Oral Tablet Acetaminophen 325 MG 2020 12:00:00 AM EDT 1.0 {tablet_as_needed} active A cetaminophen 325 MG eCW1 ([facility]) meloxicam 7.5 MG Oral Tablet MELOXICAM 12/15/2020 [...] EDT active Insulin Glargine 100 UNIT/ML eCW1 ([facility]) Insulin Glargine 100 UNIT/ML UNK 11/30/2020 12:00:00 AM EDT active Insulin Glargine 100 UNIT/ML eCW1 ([facility]) Insulin Glargine 100 UNIT/ML UNK 11/30/2020 12:00:00 AM EDT active Insulin Glargine 100 UNIT/ML [facility] [facility] Insulin Glargine 100 UNIT/ML UNK 11/30/2020 12:00:00 AM EDT active Insulin Glargine 100 UNIT/ML eCW1 ([facility]) Insulin Glargine 100 UNIT/ML UNK 11/30/2020 12:00:00 AM EDT active Insulin Glargine 100 UNIT/ML eCW1 ([facility]) 3 ML Insulin Glargine 100 UNT/ML [...] EDT active Insulin Glargine 100 UNIT/ML eCW1 ([facility]) Insulin Glargine 100 UNIT/ML UNK 11/30/2020 12:00:00 AM EDT active Insulin Glargine 100 UNIT/ML eCW1 ([facility]) Nystatin 100 UNT/MG Topical Powder Nystatin 052658 UNI T/GM Nystatin 195592 UNIT/GM 11/23/2020 12:00:00 AM EDT 1.0 {application} active Nystatin 592494 UNIT/GM eCW1 ([facility]) Nystatin 100 UNT/MG Topical Powder Nystatin 260478 UNI T/GM Nystatin 596917 UNIT/GM 11/23/2020 12:00:00 AM EDT 1.0 {application} active Nystatin 166907 UNIT/GM eCW1 ([facility]) Nystatin 100 UNT/MG Topical Powder Nystatin 111280 UNI T/GM Nystatin 346193 UNIT/GM 11/23/2020 12:00:00 AM EDT 1.0 {application} active Nystatin 365408 UNIT/GM eCW1 ([facility]) Nystatin 100 UNT/MG Topical Powder Nystatin 584709 UNI T/GM Nystatin 622111 UNIT/GM 11/23/2020 12:00:00 AM EDT 1.0 {application} active Nystatin 152763 UNIT/GM eCW1 ([facility]) Nystatin 100 UNT/MG Topical Powder Nystatin 643810 UNI T/GM Nystatin 715659 UNIT/GM 11/23/2020 12:00:00 AM EDT 1.0 {application} active Nystatin 061773 UNIT/GM eCW1 ([facility]) Nystatin 100 UNT/MG Topical Powder 100,000 unit/gram [...] Drugs Nystatin 100 UNT/MG Topical Powder Nystatin 162181 UNI T/GM Nystatin 992928 UNIT/GM 11/23/2020 12:00:00 AM EDT 1.0 {application} active Nystatin 141015 UNIT/GM eCW1 ([facility]) Nystatin 100 UNT/MG Topical Powder Nystatin 430289 UNI T/GM Nystatin 609212 UNIT/GM 11/23/2020 12:00:00 AM EDT 1.0 {application} active Nystatin 462802 UNIT/GM eCW1 ([facility]) Nystatin 100 UNT/MG Topical Powder Nystatin 729900 UNI T/GM Nystatin 130964 UNIT/GM 11/23/2020 12:00:00 AM EDT 1.0 {application} active Nystatin 697657 UNIT/GM eCW1 ([facility]) Nystatin 100 UNT/MG Topical Powder Nystatin 978509 UNI T/GM Nystatin 100515 UNIT/GM 11/23/2020 12:00:00 AM EDT 1.0 {application} active Nystatin 997561 UNIT/GM eCW1 ([facility]) Nystatin 100 UNT/MG Topical Powder Nystatin 908410 UNI T/GM Nystatin 715845 UNIT/GM 11/23/2020 12:00:00 AM EDT 1.0 {application} active Nystatin 788793 UNIT/GM eCW1 ([facility]) Nystatin 100 UNT/MG Topical Powder Nystatin 196216 UNI T/GM Nystatin 627006 UNIT/GM 11/23/2020 12:00:00 AM EDT 1.0 {application} active Nystatin 561371 UNIT/GM eCW1 ([facility]) Nystatin 100 UNT/MG Topical Powder Nystatin 754950 UNI T/GM Nystatin 915059 UNIT/GM 11/23/2020 12:00:00 AM EDT 1.0 {application} active Nystatin 479564 UNIT/GM eCW1 ([facility]) Nystatin 100 UNT/MG Topical Powder Nystatin 044242 UNI T/GM Nystatin 139729 UNIT/GM 11/23/2020 12:00:00 AM EDT 1.0 {application} active Nystatin 849601 UNIT/GM eCW1 ([facility]) 150 mg 11/21/2020 12:00:00 AM EDT tablet [...] 1.0 {tablet} active Fluconazole 150 MG eCW1 ([facility]) Nystatin 100 UNT/MG Topical Powder Nystatin 281569 UNI T/GM Nystatin 039899 UNIT/GM 11/21/2020 12:00:00 AM EDT 1.0 {application} active Nystatin 942708 UNIT/GM eCW1 ([facility]) Nystatin 100 UNT/MG Topical Powder Nystatin 223554 UNI T/GM Nystatin 287581 UNIT/GM 11/21/2020 12:00:00 AM EDT 1.0 {application} active Nystatin 449844 UNIT/GM eCW1 ([facility]) Nystatin 100 UNT/MG Topical Powder Nystatin 901266 UNI T/GM Nystatin 153419 UNIT/GM 11/21/2020 12:00:00 AM EDT 1.0 {application} active Nystatin 148768 UNIT/GM eCW1 ([facility]) Nystatin 100 UNT/MG Topical Powder Nystatin 631484 UNI T/GM Nystatin 322668 UNIT/GM 11/21/2020 12:00:00 AM EDT 1.0 {application} active Nystatin 029816 UNIT/GM eCW1 ([facility]) Fluconazole 150 MG Oral Tablet Fluconazole 150 MG 11/21/2020 12:00: 00 AM EDT 1.0 {tablet} active Fluconazole 150 MG eCW1 ([facility]) Nystatin 100 UNT/MG Topical Powder Nystatin 783112 UNI T/GM Nystatin 859204 UNIT/GM 11/21/2020 12:00:00 AM EDT 1.0 {application} active Nystatin 548009 UNIT/GM eCW1 ([facility]) Nystatin 100 UNT/MG Topical Powder Nystatin 273982 UNI T/GM Nystatin 136347 UNIT/GM 11/21/2020 12:00:00 AM EDT 1.0 {application} active Nystatin 071258 UNIT/GM eCW1 ([facility]) Fluconazole 150 MG Oral Tablet Fluconazole 150 MG 11/21/2020 12:00: 00 AM EDT 1.0 {tablet} active Fluconazole 150 MG eCW1 ([facility]) Nystatin 100 UNT/MG Topical Powder Nystatin 564944 UNI T/GM Nystatin 911916 UNIT/GM 11/21/2020 12:00:00 AM EDT 1.0 {application} active Nystatin 668036 UNIT/GM eCW1 ([facility]) Fluconazole 150 MG Oral Tablet Fluconazole 150 MG 11/21/2020 12:00: 00 AM EDT 1.0 {tablet} active Fluconazole 150 MG eCW1 ([facility]) Fluconazole 150 MG Oral Tablet Fluconazole 150 MG 11/21/2020 12:00: 00 AM EDT 1.0 {tablet} active Fluconazole 150 MG eCW1 ([facility]) Fluconazole 150 MG Oral Tablet Fluconazole 150 MG 11/21/2020 12:00: 00 AM EDT 1.0 {tablet} active Fluconazole 150 MG eCW1 ([facility]) Nystatin 100 UNT/MG Topical Powder Nystatin 047753 UNI T/GM Nystatin 709727 UNIT/GM 11/21/2020 12:00:00 AM EDT 1.0 {application} active Nystatin 803177 UNIT/GM eCW1 ([facility]) Fluconazole 150 MG Oral Tablet Fluconazole 150 MG 11/21/2020 12:00: 00 AM EDT 1.0 {tablet} active Fluconazole 150 MG eCW1 ([facility]) Fluconazole 150 MG Oral Tablet Fluconazole 150 MG 11/21/2020 12:00: 00 AM EDT 1.0 {tablet} active Fluconazole 150 MG eCW1 ([facility]) BLOOD-GLUCOSE METER 11/21/2020 12:00:00 AM EDT mis 1 USE DAILY TO TEST BLOOD GLUCOSE USE DAILY TO TEST BLOOD GLUCOSE SOLD: 11/21/2020 [facility] Fluconazole 150 MG Oral Tablet Fluconazole 150 MG 11/21/2020 12:00: 00 AM EDT 1.0 {tablet} active Fluconazole 150 MG eCW1 ([facility]) Nystatin 100 UNT/MG Topical Powder Nystatin 140990 UNI T/GM Nystatin 440472 UNIT/GM 11/21/2020 12:00:00 AM EDT 1.0 {application} active Nystatin 751348 UNIT/GM eCW1 ([facility]) Nystatin 100 UNT/MG Topical Powder Nystatin 433201 UNI T/GM Nystatin 465182 UNIT/GM 11/21/2020 12:00:00 AM EDT 1.0 {application} active Nystatin 367990 UNIT/GM eCW1 ([facility]) Fluconazole 150 MG Oral Tablet Fluconazole 150 MG 11/21/2020 12:00: 00 AM EDT 1.0 {tablet} active Fluconazole 150 MG eCW1 ([facility]) Fluconazole 150 MG Oral Tablet Fluconazole 150 MG 11/21/2020 12:00: 00 AM EDT 1.0 {tablet} active Fluconazole 150 MG eCW1 ([facility]) Fluconazole 150 MG Oral Tablet Fluconazole 150 MG 11/21/2020 12:00: 00 AM EDT 1.0 {tablet} active Fluconazole 150 MG eCW1 ([facility]) Nystatin 100 UNT/MG Topical Powder Nystatin 482483 UNI T/GM Nystatin 504129 UNIT/GM 11/21/2020 12:00:00 AM EDT 1.0 {application} active Nystatin 610000 UNIT/GM eCW1 ([facility]) Nystatin 100 UNT/MG Topical Powder Nystatin 209673 UNI T/GM Nystatin 045460 UNIT/GM 11/21/2020 12:00:00 AM EDT 1.0 {application} active Nystatin 301911 UNIT/GM eCW1 ([facility]) Fluconazole 150 MG Oral Tablet Fluconazole 150 MG 11/21/2020 12:00: 00 AM EDT 1.0 {tablet} active Fluconazole 150 MG eCW1 ([facility]) Nystatin 100 UNT/MG Topical Powder Nystatin 447477 UNI T/GM Nystatin 761013 UNIT/GM 11/21/2020 12:00:00 AM EDT 1.0 {application} active Nystatin 920791 UNIT/GM eCW1 ([facility]) Nystatin 100 UNT/MG Topical Powder Nystatin 125606 UNI T/GM Nystatin 080960 UNIT/GM 11/21/2020 12:00:00 AM EDT 1.0 {application} active Nystatin 977339 UNIT/GM eCW1 ([facility]) Fluconazole 150 MG Oral Tablet Fluconazole 150 MG 11/21/2020 12:00: 00 AM EDT 1.0 {tablet} active Fluconazole 150 MG eCW1 ([facility]) Nystatin 100 UNT/MG Topical Powder Nystatin 616134 UNI T/GM Nystatin 385613 UNIT/GM 11/21/2020 12:00:00 AM EDT 1.0 {application} active Nystatin 208781 UNIT/GM eCW1 ([facility]) Fluconazole 150 MG Oral Tablet Fluconazole 150 MG 11/21/2020 12:00: 00 AM EDT 1.0 {tablet} active Fluconazole 150 MG eCW1 ([facility]) Nystatin 100 UNT/MG Topical Powder Nystatin 308209 UNI T/GM Nystatin 807061 UNIT/GM 11/21/2020 12:00:00 AM EDT 1.0 {application} active Nystatin 458806 UNIT/GM eCW1 ([facility]) Fluconazole 150 MG Oral Tablet Fluconazole 150 MG 11/21/2020 12:00: 00 AM EDT 1.0 {tablet} active Fluconazole 150 MG eCW1 ([facility]) Test Strips - UNK 11/15/2020 12:00:00 AM EDT acti ve Test Strips - eCW1 ([facility]) Test Strips - UNK 11/15/2020 12:00:00 AM EDT acti ve Test Strips - eCW1 ([facility]) Test Strips - UNK 11/15/2020 12:00:00 AM EDT acti ve Test Strips - eCW1 ([facility]) Test Strips - UNK 11/15/2020 12:00:00 AM EDT acti ve Test Strips - eCW1 ([facility]) Test Strips - K 11/15/2020 12:00:00 AM EDT acti ve Test Strips - eCW1 ([facility]) Test Strips - K 11/15/2020 12:00:00 AM EDT acti ve Test Strips - eCW1 ([facility]) Test Strips - [facility] 11/15/2020 12:00:00 AM EDT acti ve Test Strips - eCW1 ([facility]) Test Strips - [facility] 11/15/2020 12:00:00 AM EDT acti ve Test Strips - eCW1 ([facility]) Test Strips - [facility] 11/15/2020 12:00:00 AM EDT acti ve Test Strips - eCW1 ([facility]) Test Strips - [facility] 11/15/2020 12:00:00 AM EDT acti ve Test Strips - eCW1 ([facility]) Test Strips - [facility] 11/15/2020 12:00:00 AM EDT acti ve Test Strips - eCW1 ([facility]) Test Strips - [facility] 11/15/2020 12:00:00 AM EDT acti ve Test Strips - eCW1 ([facility]) Test Strips - [facility] 11/15/2020 12:00:00 AM EDT acti ve Test Strips - eCW1 ([facility]) Test Strips - [facility] 11/15/2020 12:00:00 AM EDT acti ve Test Strips - eCW1 ([facility]) Test Strips - [facility] 11/15/2020 12:00:00 AM EDT acti ve Test Strips - eCW1 ([facility]) Test Strips - [facility] 11/15/2020 12:00:00 AM EDT acti ve Test Strips - eCW1 ([facility]) Test Strips - [facility] 11/15/2020 12:00:00 AM EDT acti ve Test Strips - eCW1 ([facility]) Test Strips - [facility] 11/15/2020 12:00:00 AM EDT acti ve Test Strips - eCW1 ([facility]) Test Strips - UNK 11/15/2020 12:00:00 AM EDT acti ve Test Strips - eCW1 ([facility]) Test Strips - UNK 11/15/2020 12:00:00 AM EDT acti ve Test Strips - eCW1 ([facility]) Test Strips - UNK 11/15/2020 12:00:00 AM EDT acti ve Test Strips - eCW1 ([facility]) Test Strips - UNK 11/15/2020 12:00:00 AM EDT acti ve Test Strips - eCW1 ([facility]) Test Strips - K 11/15/2020 12:00:00 AM EDT acti ve Test Strips - eCW1 ([facility]) Test Strips - K 11/15/2020 12:00:00 AM EDT acti ve Test Strips - eCW1 ([facility]) 25 mcg 11/09/2020 12:00:00 AM EDT tablet 15 TAKE ONE-HALF TABLET BY MOUTH EVERY MORNING ON AN EMPTY STOMACH TAKE ONE-HALF TABLET BY MOUTH EVERY MORN ING ON AN EMPTY STOMACH SOLD: 11/11/2020 [facility] Levothyroxine Sodium 0.025 MG Oral Tablet Levothyroxin e Sodium 25 MCG Levothyroxine Sodium 25 MCG 11/08/2020 12:00:00 AM EDT active Levothyroxine Sodium 25 MCG eCW1 ([facility]) Levothyroxine Sodium 0.025 MG Oral Tablet Levothyroxin e Sodium 25 MCG Levothyroxine Sodium 25 MCG 11/08/2020 12:00:00 AM EDT active Levothyroxine Sodium 25 MCG eCW1 ([facility]) Levothyroxine Sodium 0.025 MG Oral Tablet Levothyroxin e Sodium 25 MCG Levothyroxine Sodium 25 MCG 11/08/2020 12:00:00 AM EDT active Levothyroxine Sodium 25 MCG eCW1 ([facility]) Levothyroxine Sodium 0.025 MG Oral Tablet Levothyroxin e Sodium 25 MCG Levothyroxine Sodium 25 MCG 11/08/2020 12:00:00 AM EDT active Levothyroxine Sodium 25 MCG eCW1 ([facility]) Levothyroxine Sodium 0.025 MG Oral Tablet Levothyroxin e Sodium 25 MCG Levothyroxine Sodium 25 MCG 11/08/2020 12:00:00 AM EDT active Levothyroxine Sodium 25 MCG eCW1 ([facility]) Levothyroxine Sodium 0.025 MG Oral Tablet Levothyroxin e Sodium 25 MCG Levothyroxine Sodium 25 MCG 11/08/2020 12:00:00 AM EDT active Levothyroxine Sodium 25 MCG eCW1 ([facility]) Levothyroxine Sodium 0.025 MG Oral Tablet Levothyroxin e Sodium 25 MCG Levothyroxine Sodium 25 MCG 11/08/2020 12:00:00 AM EDT active Levothyroxine Sodium 25 MCG eCW1 ([facility]) Levothyroxine Sodium 0.025 MG Oral Tablet Levothyroxin e Sodium 25 MCG Levothyroxine Sodium 25 MCG 11/08/2020 12:00:00 AM EDT active Levothyroxine Sodium 25 MCG eCW1 ([facility]) Levothyroxine Sodium 0.025 MG Oral Tablet Levothyroxin e Sodium 25 MCG Levothyroxine Sodium 25 MCG 11/08/2020 12:00:00 AM EDT active Levothyroxine Sodium 25 MCG eCW1 ([facility]) Levothyroxine Sodium 0.025 MG Oral Tablet Levothyroxin e Sodium 25 MCG Levothyroxine Sodium 25 MCG 11/08/2020 12:00:00 AM EDT active Levothyroxine Sodium 25 MCG eCW1 ([facility]) Levothyroxine Sodium 0.025 MG Oral Tablet Levothyroxin e Sodium 25 MCG Levothyroxine Sodium 25 MCG 11/08/2020 12:00:00 AM EDT active Levothyroxine Sodium 25 MCG eCW1 ([facility]) Levothyroxine Sodium 0.025 MG Oral Tablet Levothyroxin e Sodium 25 MCG Levothyroxine Sodium 25 MCG 11/08/2020 12:00:00 AM EDT active Levothyroxine Sodium 25 MCG eCW1 ([facility]) Levothyroxine Sodium 0.025 MG Oral Tablet Levothyroxin e Sodium 25 MCG Levothyroxine Sodium 25 MCG 11/08/2020 12:00:00 AM EDT active Levothyroxine Sodium 25 MCG eCW1 ([facility]) Levothyroxine Sodium 0.025 MG Oral Tablet Levothyroxin e Sodium 25 MCG Levothyroxine Sodium 25 MCG 11/08/2020 12:00:00 AM EDT active Levothyroxine Sodium 25 MCG eCW1 ([facility]) Levothyroxine Sodium 0.025 MG Oral Tablet Levothyroxin e Sodium 25 MCG Levothyroxine Sodium 25 MCG 11/08/2020 12:00:00 AM EDT active Levothyroxine Sodium 25 MCG eCW1 ([facility]) Levothyroxine Sodium 0.025 MG Oral Tablet Levothyroxin e Sodium 25 MCG Levothyroxine Sodium 25 MCG 11/08/2020 12:00:00 AM EDT active Levothyroxine Sodium 25 MCG eCW1 ([facility]) Levothyroxine Sodium 0.025 MG Oral Tablet Levothyroxin e Sodium 25 MCG Levothyroxine Sodium 25 MCG 11/08/2020 12:00:00 AM EDT active Levothyroxine Sodium 25 MCG eCW1 ([facility]) Levothyroxine Sodium 0.025 MG Oral Tablet Levothyroxin e Sodium 25 MCG Levothyroxine Sodium 25 MCG 11/08/2020 12:00:00 AM EDT active Levothyroxine Sodium 25 MCG eCW1 ([facility]) Levothyroxine Sodium 0.025 MG Oral Tablet Levothyroxin e Sodium 25 MCG Levothyroxine Sodium 25 MCG 11/08/2020 12:00:00 AM EDT active Levothyroxine Sodium 25 MCG eCW1 ([facility]) Levothyroxine Sodium 0.025 MG Oral Tablet Levothyroxin e Sodium 25 MCG Levothyroxine Sodium 25 MCG 11/08/2020 12:00:00 AM EDT active Levothyroxine Sodium 25 MCG eCW1 ([facility]) Levothyroxine Sodium 0.025 MG Oral Tablet Levothyroxin e Sodium 25 MCG Levothyroxine Sodium 25 MCG 11/08/2020 12:00:00 AM EDT active Levothyroxine Sodium 25 MCG eCW1 ([facility]) Levothyroxine Sodium 0.025 MG Oral Tablet Levothyroxin e Sodium 25 MCG Levothyroxine Sodium 25 MCG 11/08/2020 12:00:00 AM EDT active Levothyroxine Sodium 25 MCG eCW1 ([facility]) Levothyroxine Sodium 0.025 MG Oral Tablet Levothyroxin e Sodium 25 MCG Levothyroxine Sodium 25 MCG 11/08/2020 12:00:00 AM EDT active Levothyroxine Sodium 25 MCG eCW1 ([facility]) Levothyroxine Sodium 0.025 MG Oral Tablet Levothyroxin e Sodium 25 MCG Levothyroxine Sodium 25 MCG 11/08/2020 12:00:00 AM EDT active Levothyroxine Sodium 25 MCG eCW1 ([facility]) Levothyroxine Sodium 0.025 MG Oral Tablet Levothyroxin e Sodium 25 MCG Levothyroxine Sodium 25 MCG 11/08/2020 12:00:00 AM EDT active Levothyroxine Sodium 25 MCG eCW1 ([facility]) Levothyroxine Sodium 0.025 MG Oral Tablet Levothyroxin e Sodium 25 MCG Levothyroxine Sodium 25 MCG 11/08/2020 12:00:00 AM EDT active Levothyroxine Sodium 25 MCG eCW1 ([facility]) NITROFURANTOIN, MACROCRYSTALS 25 MG / Ni trofurantoin, [...] {tablet_at_bedtime_as_needed} active Fa motidine 20 MG W1 ([facility]) Famotidine 20 MG Oral Tablet Famotidine 20 MG 06/22/2020 12:00:00 A M EST 1.0 {tablet_at_bedtime_as_needed} active Fa motidine 20 MG eCW1 ([facility]) Famotidine 20 MG Oral Tablet Famotidine 20 MG 06/22/2020 12:00:00 A M EST 1.0 {tablet_at_bedtime_as_needed} active Fa motidine 20 MG eCW1 ([facility]) Famotidine 20 MG Oral Tablet Famotidine 20 MG 06/22/2020 12:00:00 A M EST 1.0 {tablet_at_bedtime_as_needed} active Fa motidine 20 MG eCW1 ([facility]) Famotidine 20 MG Oral Tablet Famotidine 20 MG 06/22/2020 12:00:00 A M EST 1.0 {tablet_at_bedtime_as_needed} active Fa motidine 20 MG eCW1 ([facility]) Famotidine 20 MG Oral Tablet Famotidine 20 MG 06/22/2020 12:00:00 A M EST 1.0 {tablet_at_bedtime_as_needed} active Fa motidine 20 MG eCW1 ([facility]) Famotidine 20 MG Oral Tablet Famotidine 20 MG 06/22/2020 12:00:00 A M EST 1.0 {tablet_at_bedtime_as_needed} active Fa motidine 20 MG eCW1 ([facility]) Famotidine 20 MG Oral Tablet Famotidine 20 MG 06/22/2020 12:00:00 A M EST 1.0 {tablet_at_bedtime_as_needed} active Fa motidine 20 MG eCW1 ([facility]) Famotidine 20 MG Oral Tablet Famotidine 20 MG 06/22/2020 12:00:00 A M EST 1.0 {tablet_at_bedtime_as_needed} active Fa motidine 20 MG eCW1 ([facility]) Famotidine 20 MG Oral Tablet Famotidine 20 MG 06/22/2020 12:00:00 A M EST 1.0 {tablet_at_bedtime_as_needed} active Fa motidine 20 MG eCW1 ([facility]) Famotidine 20 MG Oral Tablet Famotidine 20 MG 06/22/2020 12:00:00 A M EST 1.0 {tablet_at_bedtime_as_needed} active Fa motidine 20 MG eCW1 ([facility]) Famotidine 20 MG Oral Tablet Famotidine 20 MG 06/22/2020 12:00:00 A M EST 1.0 {tablet_at_bedtime_as_needed} active Fa motidine 20 MG eCW1 ([facility]) Famotidine 20 MG Oral Tablet Famotidine 20 MG 06/22/2020 12:00:00 A M EST 1.0 {tablet_at_bedtime_as_needed} active Fa motidine 20 MG eCW1 ([facility]) Famotidine 20 MG Oral Tablet Famotidine 20 MG 06/22/2020 12:00:00 A M EST 1.0 {tablet_at_bedtime_as_needed} active Fa motidine 20 MG eCW1 ([facility]) Famotidine 20 MG Oral Tablet Famotidine 20 MG 06/22/2020 12:00:00 A M EST 1.0 {tablet_at_bedtime_as_needed} active Fa motidine 20 MG eCW1 ([facility]) Famotidine 20 MG Oral Tablet Famotidine 20 MG 06/22/2020 12:00:00 A M EST 1.0 {tablet_at_bedtime_as_needed} active Fa motidine 20 MG eCW1 ([facility]) Famotidine 20 MG Oral Tablet Famotidine 20 MG 06/22/2020 12:00:00 A M EST 1.0 {tablet_at_bedtime_as_needed} active Fa motidine 20 MG eCW1 ([facility]) Famotidine 20 MG Oral Tablet Famotidine 20 MG 06/22/2020 12:00:00 A M EST 1.0 {tablet_at_bedtime_as_needed} active Fa motidine 20 MG eCW1 ([facility]) Famotidine 20 MG Oral Tablet Famotidine 20 MG 06/22/2020 12:00:00 A M EST 1.0 {tablet_at_bedtime_as_needed} active Fa motidine 20 MG eCW1 ([facility]) Famotidine 20 MG Oral Tablet Famotidine 20 MG 06/22/2020 12:00:00 A M EST 1.0 {tablet_at_bedtime_as_needed} active Fa motidine 20 MG eCW1 ([facility]) Famotidine 20 MG Oral Tablet Famotidine 20 MG 06/22/2020 12:00:00 A M EST 1.0 {tablet_at_bedtime_as_needed} active Fa motidine 20 MG eCW1 ([facility]) Famotidine 20 MG Oral Tablet Famotidine 20 MG 06/22/2020 12:00:00 A M EST 1.0 {tablet_at_bedtime_as_needed} active Fa motidine 20 MG eCW1 ([facility]) Famotidine 20 MG Oral Tablet Famotidine 20 MG 06/22/2020 12:00:00 A M EST 1.0 {tablet_at_bedtime_as_needed} active Fa motidine 20 MG eCW1 ([facility]) Famotidine 20 MG Oral Tablet Famotidine 20 MG 06/22/2020 12:00:00 A M EST 1.0 {tablet_at_bedtime_as_needed} active Fa motidine 20 MG eCW1 ([facility]) Famotidine 20 MG Oral Tablet Famotidine 20 MG 06/22/2020 12:00:00 A M EST 1.0 {tablet_at_bedtime_as_needed} active Fa motidine 20 MG eCW1 ([facility]) Famotidine 20 MG Oral Tablet Famotidine 20 MG 06/22/2020 12:00:00 A M EST 1.0 {tablet_at_bedtime_as_needed} active Fa motidine 20 MG eCW1 ([facility]) Famotidine 20 MG Oral Tablet Famotidine 20 MG 06/22/2020 12:00:00 A M EST 1.0 {tablet_at_bedtime_as_needed} active Fa motidine 20 MG eCW1 ([facility]) Famotidine 20 MG Oral Tablet Famotidine 20 MG 06/22/2020 12:00:00 A M EST 1.0 {tablet_at_bedtime_as_needed} active Fa motidine 20 MG eCW1 ([facility]) Famotidine 20 MG Oral Tablet Famotidine 20 MG 06/22/2020 12:00:00 A M EST 1.0 {tablet_at_bedtime_as_needed} active Fa motidine 20 MG eCW1 ([facility]) 1 mg 06/07/2020 12:00:00 AM EST tablet [...] Plan Information Medicaid [place] Med[place] Part B [id number] Self Medicare [place] [employer] [id number] Self [id number] Medicare [facility] Medigap Part B [id number] Self [id number] [place] [id number] Self [id number] [place] [id number] Self [id number] [place] [id number] Self [id number] MEDICARE [id number] SP [id number] W Medicare [place] [employer] Part [place] [id number] Self [id number] [place] [id number] Self [id number] MEDICARE [id number] [facility] [address] [id number] Medicare [place] [id number] Self [id number] [place] [id number] Self [id number] [place] [id number] Self [place] [id number] Self [id number] [place] [id number] Self [id number] [place] [id number] Self [id number] zzMedicaid FFS O [id number] S [id number] Medicaid S [id number] S [id number] Medicare P [id number] S [id number] W Medicaid S [id number] Medicaid O [id number] S [id number] Medicare S [id number] S [id number] W [facility] MCRO [id number] SP [id number] [facility] Medicare Commercial Dual Complete [id number] Self Dual Complete [facility] MCRO [id number] SP [id number] [facility] Secure Horizons P [id number] S [id number] [facility] Secure Horizons P [id number] S [id number] [facility] Secure Horizons P [id number] S [id number] Medicaid [place] Part [place] [id number] Self [id number] [facility] ([facility]) Commercial [id number] Self Medicaid [place] Part B [id number] Self [facility] ([facility]) Commercial [id number] Self [id number] [facility] [facility] ([facility]) Medigap Part B [id number] Self [id number] [place] Med[place] [id number] Self [id number] [place] [id number] Self [id number] [facility] ([facility]) Medigap Part B [id number] Self [id number] [place] [id number] Self [id number] [facility] ([facility]) Medigap Part B [id number] Self [id number] [place] [id number] Self [id number] [facility] ([facility]) Medigap Part B [id number] Self [id number] [place] [id number] Self [id number] [facility] ([facility]) Medigap Part B [id number] Self [id number] [place] [id number] Self [id number] [facility] ([facility]) Commercial [id number] Self [id number] [place] [id number] Self [id number] [facility] ([facility]) Medigap Part B [id number] Self [id number] [place] [id number] Self [id number] [facility] ([facility]) Medigap Part B [id number] Self [id number] [place] [id number] Self [id number] [facility] ([facility]) Medigap Part B [id number] Self [id number] [place] [id number] Self [id number] [facility] ([facility]) Medigap Part B [id number] Self [id number] [place] Med[place] [id number] Self [id number] [facility] ([facility]) Commercial [id number] Self [id number] Medicaid S [id number] S [id number] [facility] Medicare Commercial [id number] Self [id number] [facility] [id number] SP [id number] [employer] MEDICARE [id number] Danielle [id number] [facility] Hmo Commercial [id number] Self [id number] MEDICARE COMPLETE-[facility] O [id number] S [id number] [facility] Medicare Medigap Part B [id number] Self [id number] [facility] O [id number] S [id number] [facility] Hmo Commercial [id number] Self [employer] HMO [id number] SP [id number] [facility] [id number] SP [id number] [employer] HMO [id number] SP [id number] MEDICARE [id number] SP [id number] MEDICAID [id number] SP [id number] MEDICARE [id number] SP [id number] [facility]) O [id number] S [id number] MEDICARE C [id number] S [id number] W Medicare Wrap O [id number] S [id number] [place] [id number] SP [id number] [place] MEDICAID M [id number] S [id number] [employer] GOLD O [id number] S [id number] EMEDNY [id number] SP [id number] [employer] GOLD PLUS -O/P [id number] 18 [id number] MEDICARE [id number] SP [id number] W zzMedicaid FFS O [id number] S [id number] [employer] GOLD [id number] SP [id number] [employer] GOLD [id number] SP [id number] [employer] Medicare Medigap Part B [id number] Self [id number] MEDICARE [id number] SP [id number] W MEDICAID [id number] SP [id number] Problems, Conditions, and Diagnoses Code Display Name Description Problem Type Effective Dates Data Source(s) Z794 [facility] (current) use of insulin [facility] (cu rrent) use of insulin Diagnosis 07/12/2020 07:15:00 AM [facility] Z885 Allergy status to narcotic agent Allergy status to narcotic agent Diagnosis 07/12/2020 07:15:00 AM [facility] 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, unspecified, bilateral Preglaucoma, unspecified, bilateral Diagnosis 07/12/2020 07:15:00 AM [facility] H524 Presbyopia Presbyopia Diagnosis 07/12/2020 07:15:00 AM [facility] F329 Major depressive disorder, single episod e, unspecified Major depressive disorder, single episode, unspecified Diagnosis 07/12/2020 07:15:00 AM [facility] F419 Anxiety disorder, unspecified Anxiety disorder, unspec ified Diagnosis 07/12/2020 07:15:00 AM [facility] I10 Essential (primary) hypertension Essential (primary) h ypertension Diagnosis 07/12/2020 07:15:00 AM [facility] H2513 Age-related nuclear cataract, bilateral Age-related nuclear cataract, bilateral Diagnosis 07/12/2020 07:15:00 AM [facility] E1136 Type 2 diabetes mellitus with diabetic c ataract Type 2 diabetes mellitus with diabetic cataract Diagnosis 07/12/2020 07:15:00 AM [facility] Z833 Family history of diabetes mellitus Family histo ry of diabetes mellitus Diagnosis 05/17/2020 09:00:00 AM [facility] Z8249 Family history of ischemic h eart disease and other diseases of the circulatory system Family history of ischemic heart disease and other diseases of the circulatory system Diagnosis 05/17/2020 09:00:00 AM [facility] [id number] Other executor of estate (current) drug therapy O ther executor of estate (current) drug therapy Diagnosis 05/17/2020 09:00:00 AM [facility] F411 Generalized anxiety disorder Generalized anxiety disor johnathan Diagnosis 05/17/2020 09:00:00 AM [facility] H259 Unspecified age-related cataract Unspecified age -related cataract Diagnosis 05/17/2020 09:00:00 AM [facility] M14710 Encounter for other preprocedural examin ation Encounter for other preprocedural examination Diagnosis 05/10/2020 09:20:00 AM [facility] E66.9 Obesity, unspecified Obesity, unspecified Diagnosis 02/04/2020 11:09:03 AM EDT [facility] R60.9 Edema, unspecified Edema, unspecified Diagnosis 06/2019 11:09:03 AM EDT [facility] E11.9 Type 2 diabetes mellitus without complic ations Type 2 diabetes mellitus without complic Diagnosis 02/04/2020 11:09:03 AM EDT [facility] R94.31 Abnormal electrocardiogram [ECG] [EKG] A bnormal electrocardiogram (ECG) (EKG) Diagnosis 02/04/2020 11:09:03 AM EDT [facility] G47.33 Obstructive sleep apnea (adult) (pediatr ic) Obstructive sleep apnea (adult) (pediatr Diagnosis 02/04/2020 11:09:03 AM EDT [facility] E03.9 Hypothyroidism, unspecified Hypothyroidism, unspecifie d Diagnosis 02/04/2020 11:09:03 AM EDT [facility] J44.9 Chronic obstructive pulmonary disease, u nspecified Chronic obstructive pulmonary disease, u Diagnosis 02/04/2020 11:09:03 AM EDT [facility] I10 Essential (primary) hypertension Essential (primary) h ypertension Diagnosis 02/04/2020 11:09:03 AM EDT [facility] E78.5 Hyperlipidemia, unspecified Hyperlipidemia, unspecifie d Diagnosis 02/04/2020 11:09:03 AM EDT [facility] E03.9 [id number] Hypothyroidism, unspecified type Problem 02/10/2021 12:00:00 AM EDT eCW1 ([facility]) R29.6 [id number] Frequent falls Problem 02/09/2021 12:00:00 A M EDT eCW1 ([facility]) E11.8 [id number] Type 2 diabetes mellitus with complicatio ns Problem 11/30/2020 12:00:00 AM EDT eCW1 ([facility]) N18.4 [id number] Chronic kidney disease, stage 4 (severe) Problem 11/30/2020 12:00:00 AM EDT eCW1 ([facility]) E78.5 Hyperlipidemia Hyperlipidemia, unspecified Problem 10/05/2020 12:00:00 AM EDT eCW1 ([facility]) Z92.241 [id number] History of steroid therapy Problem 12:00:00 AM EDT eCW1 ([facility]) E11.22 [id number] 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 Problem 06/22/2020 12:00:00 AM EST eCW1 ([facility]) G47.00 [id number] Insomnia, unspecified type Problem 12:00:00 AM EST eCW1 ([facility]) G47.9 [id number] Sleep disturbance Problem 06/22/2020 12:00:0 0 AM EST eCW1 ([facility]) H25.11 [id number] Age-related nuclear cataract, right ey e Problem 05/08/2020 12:00:00 AM EST eCW1 ([facility]) E11.21 753635605 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 Problem 03/30/2020 12:00:00 AM EST eCW1 ([facility]) I10 43149281 Hypertension, unspecified type Problem 03/30 12:00:00 AM EST eCW1 ([facility]) F17.200 50671264 Smoker Problem 03/30/2020 12:00:00 AM ES T eCW1 ([facility]) Z90.81 355288694 Asplenia after surgical procedure Problem 03/30/2020 12:00:00 AM EST eCW1 ([facility]) E11.69 [id number] Type 2 diabetes mellitus with ot her specified complication Problem 03/30/2020 12:00:00 AM EST eCW1 ([facility]) Surgeries/Procedures Procedure Description Date Indications Data Source(s) RADEX HAND MINIMUM 3 VIEWS 12/14/2020 12:00:00 AM EDT [facility] ([facility]) OFFICE OUTPATIENT VISIT 15 MINUTES 12/14/2020 12:00:00 AM EDT [facility] ([facility]) THERAPEUTIC PX 1/> AREAS EACH 15 MIN EXERCISES 12:00:00 AM EDT [facility] ([facility] ) Results ID Date Data Source [id number] 01/31/2021 05:10:00 PM EDT [facility] Name Value Range Interpretation Code Description Data Anju rce(s) Supporting Document(s) SARS coronavirus 2 RNA [Presence] in Res piratory specimen by HECTOR with probe detection NEGATIVE [facility] This lab was ordered by [facility] a nd reported by [facility]. ID Date Data Source [id number] 12/08/2020 04:45:00 PM EDT [facility] Name Value Range Interpretation Code Description Data Anju rce(s) Supporting Document(s) SARS-CoV-2 (COVID-19) Negative [facility] This lab was ordered by [facility] and reported by [facility]. ID Date Data Source [facility] URINALYSIS 11/09/2020 12:00:00 AM EDT eCW1 ([facility]) Name Value Range Interpretation Code Description Data Anju rce(s) Supporting Document(s) UA URINALYSIS eCW1 ([facility]) ID Date Data Source [id number] 07/19/2020 02:01:00 [place] [address] OPERATIVE SUMMARYNAME: MAZIN BENITEZ DATE OF : 1955TTENDING PHYS: Norma Asher MD DATE: 07/12/20 MR#: [id number] [id number] PROCEDURE: 07/12/20PREOPERATIVE DIAGNOSIS: Cataract, left eye.POSTOPERATIVE DIAGNOSIS: Cataract, left eyePROCEDURE: Phacoemulsification with cataract removal with the help of ORA, IOL lens useAUOOTO 18.5 diopter.SURGEON: Norma Asher MD.SEPHORA PRODUCT CONSULTANT: None.INDICATIONS: Decreased vision interfering with daily activities.DETAILS [...] salt solution followed by phacoemulsification in a xjevzg-ssb-qvbytfy methodwithin the capsular bag. Excess cortical material [...] rce(s) Supporting Document(s) ID Date Data Source [id number] 07/07/2020 01:46:00 PM EST [facility] Name Value Range Interpretation Code Description Data Anju rce(s) Supporting Document(s) SARS-CoV-2 (COVID-19) Negative [facility] This lab was ordered by [facility] and reported by [facility]. ID Date Data Source [id number] 06/25/2020 09:05:00 AM EST [facility] Name Value Range Interpretation Code Description Data Anju rce(s) Supporting Document(s) SARS-CoV-2 (COVID 19) NEGATIVE - SARS-CoV-2 (COVID19) [facility] This lab was ordered by [facility] a nd reported by [facility]. ID Date Data Source [id number] 05/25/2020 08:51:00 [place] [address] OPERATIVE SUMMARYNAME: MAZIN BENITEZ DATE OF : 3ATTENDING PHYS: Norma Asher MD DATE: 05/17/20 MR#: [id number] OF PROCEDURE: 05/17/2020REOPERATIVE DIAGNOSIS: Cataract, right eye.POSTOPERATIVE DIAGNOSIS: Cataract, right eyePROCEDURE: Phacoemulsification with intraocular lens implantation with the help of DIEGO GIFFORD 18 diopters.SURGEON: Norma Asher MD.SEPHORA PRODUCT CONSULTANT: None.COMPLICATIONS: None.INDICATIONS: Decreased vision interfering with daily [...] salt solution followed by phacoemulsification in a hhxfoy-own-pbjnnqy methodwithin the capsular bag. Excess cortical material [...] condition.DD: Norma Asher MD 05/25/20 08:27 [address] [place] [address] OPERATIVE SUMMARYNAME: MAZIN BENITEZ DATE OF : 1955TTENDING PHYS: Norma Asher MD DATE: 05/17/20 MR#: [id number]: SSR 05/25/20 08:50DS: Norma Asher MD 06/05/20 13:41 2 Name Value Range Interpretation Code Description Data Anju rce(s) Supporting Document(s) ID Date Data Source [id number] 05/12/2020 11:07:00 AM EST [facility] Name Value Range Interpretation Code Description Data Anju rce(s) Supporting Document(s) SARS-CoV-2 (COVID-19) Negative [facility] This lab was ordered by [facility] and reported by [facility]. Procedure Social History Code Duration Value Status Description Data Source(s ) Smoking 03/02/2021 12:00:00 AM EDT Former Smoker completed Former Smoker eCW1 ([facility]) Smoking 02/09/2021 12:00:00 AM EDT Former Smoker completed Former Smoker eCW1 ([facility]) Smoking 02/09/2021 12:00:00 AM EDT Former Smoker completed Former Smoker eCW1 ([facility]) Smoking 01/01/2021 12:00:00 AM EDT Former Smoker completed Former Smoker eCW1 ([facility]) Smoking 01/01/2021 12:00:00 AM EDT Former Smoker completed Former Smoker eCW1 ([facility]) Smoking 11/28/2020 12:00:00 AM EDT Former Smoker completed Former Smoker eCW1 ([facility]) Smoking 11/28/2020 12:00:00 AM EDT Former Smoker completed Former Smoker eCW1 ([facility]) Smoking 11/09/2020 12:00:00 AM EDT Former Smoker completed Former Smoker eCW1 ([facility]) Smoking 11/09/2020 12:00:00 AM EDT Former Smoker completed Former Smoker eCW1 ([facility]) Smoking 11/09/2020 12:00:00 AM EDT Former Smoker completed Former Smoker eCW1 ([facility]) Smoking 11/09/2020 12:00:00 AM EDT Former Smoker completed Former Smoker eCW1 ([facility]) Smoking 11/09/2020 12:00:00 AM EDT Former Smoker completed Former Smoker eCW1 ([facility]) Smoking 11/09/2020 12:00:00 AM EDT Former Smoker completed Former Smoker eCW1 ([facility]) Smoking 11/09/2020 12:00:00 AM EDT Former Smoker completed Former Smoker eCW1 ([facility]) Smoking 11/09/2020 12:00:00 AM EDT Former Smoker completed Former Smoker eCW1 ([facility]) Smoking 11/09/2020 12:00:00 AM EDT Former Smoker completed Former Smoker eCW1 ([facility]) Smoking 11/09/2020 12:00:00 AM EDT Former Smoker completed Former Smoker eCW1 ([facility]) Smoking 11/09/2020 12:00:00 AM EDT Former Smoker completed Former Smoker eCW1 ([facility]) Smoking 11/09/2020 12:00:00 AM EDT Former Smoker completed Former Smoker eCW1 ([facility]) Smoking 11/09/2020 12:00:00 AM EDT Former Smoker completed Former Smoker eCW1 ([facility]) Smoking 11/09/2020 12:00:00 AM EDT Former Smoker completed Former Smoker eCW1 ([facility]) Smoking 11/09/2020 12:00:00 AM EDT Former Smoker completed Former Smoker eCW1 ([facility]) Smoking 11/09/2020 12:00:00 AM EDT Former Smoker completed Former Smoker eCW1 ([facility]) Smoking 11/09/2020 12:00:00 AM EDT Former Smoker completed Former Smoker eCW1 ([facility]) Smoking 11/09/2020 12:00:00 AM EDT Former Smoker completed Former Smoker eCW1 ([facility]) Smoking 11/09/2020 12:00:00 AM EDT Former Smoker completed Former Smoker eCW1 ([facility]) Smoking 10/26/2020 12:00:00 AM EDT Former Smoker completed Former Smoker eCW1 ([facility]) Smoking 07/06/2020 12:00:00 AM EST Former Smoker completed Former Smoker eCW1 ([facility]) Smoking 06/21/2020 12:00:00 AM EST Former Smoker completed Former Smoker eCW1 ([facility]) Smoking 05/22/2020 12:00:00 AM EST Former Smoker completed Former Smoker eCW1 ([facility]) Smoking 05/22/2020 12:00:00 AM EST Former Smoker completed Former Smoker eCW1 ([facility]) Smoking 05/22/2020 12:00:00 AM EST Former Smoker completed Former Smoker eCW1 ([facility]) Smoking 05/08/2020 12:00:00 AM EST Former Smoker completed Former Smoker eCW1 ([facility]) Vital Signs ID Date Data Source UNK Name Value Range Interpretation Code Description Data Source(s) Body temperature 96.9 [degF] 96.9 [degF] [facility] ([facility]) Body height 61.75 [in_i] 61.75 [in_i] [facility] ([facility]) 5'1.75" Body weight 168.12 [lb_av] 168.12 [lb_av] MEDEN T ([facility] ) Body mass index (BMI) [Ratio] 31.0 kg/m2 31.0 k g/m2 [facility] ([facility]) Body weight 181.0 [lb_av] 181.0 [lb_av] eCW1 ([facility]) Body height 61.75 [in_i] 61.75 [in_i] eCW1 ([facility]) Body mass index (BMI) [Ratio] 33.37 kg/m2 33.37 kg/m2 eCW1 ([facility]) Heart rate 77 /min 77 /min eCW1 ([facility]) Respiratory rate 18 /min 18 /min eCW1 ([facility]) Body temperature 96.9 [degF] 96.9 [degF] eCW1 ( [facility]) Systolic blood pressure 130 mm[Hg] 130 mm[Hg] e CW1 ([facility]) Diastolic blood pressure 70 mm[Hg] 70 mm[Hg] eCW1 ([facility]) Body weight 179.8 [lb_av] 179.8 [lb_av] eCW1 ([facility]) Body height 61.75 [in_i] 61.75 [in_i] eCW1 ([facility]) Body mass index (BMI) [Ratio] 33.15 kg/m2 33.15 kg/m2 eCW1 ([facility]) Heart rate 75 /min 75 /min eCW1 ([facility]) Body temperature 96.1 [degF] 96.1 [degF] eCW1 ( [facility]) Systolic blood pressure 130 mm[Hg] 130 mm[Hg] e CW1 ([facility]) Diastolic blood pressure 80 mm[Hg] 80 mm[Hg] eCW1 ([facility]) Respiratory rate 18 /min 18 /min eCW1 ([facility]) Diastolic blood pressure 88 mm[Hg] 88 mm[Hg] eCW1 ([facility]) Body weight 177.6 [lb_av] 177.6 [lb_av] eCW1 ([facility]) Body height 61.75 [in_i] 61.75 [in_i] eCW1 ([facility]) Body mass index (BMI) [Ratio] 32.74 kg/m2 32.74 kg/m2 eCW1 ([facility]) Heart rate 78 /min 78 /min eCW1 ([facility]) Respiratory rate 18 /min 18 /min eCW1 ([facility]) Body temperature 97.8 [degF] 97.8 [degF] eCW1 ( [facility]) Systolic blood pressure 130 mm[Hg] 130 mm[Hg] e CW1 ([facility]) Body weight 184.6 [lb_av] 184.6 [lb_av] eCW1 ([facility]) Body height 61.75 [in_i] 61.75 [in_i] eCW1 ([facility]) Body mass index (BMI) [Ratio] 34.03 kg/m2 34.03 kg/m2 eCW1 ([facility]) Heart rate 84 /min 84 /min eCW1 ([facility]) Respiratory rate 18 /min 18 /min eCW1 ([facility]) Body temperature 97.1 [degF] 97.1 [degF] eCW1 ( [facility]) Systolic blood pressure 120 mm[Hg] 120 mm[Hg] e CW1 ([facility]) Diastolic blood pressure 74 mm[Hg] 74 mm[Hg] eCW1 ([facility]) ID Date Data Source [id number] 08/16/2020 03:20:59 PM EDT [facility] Name Value Range Interpretation Code Description Data Source(s) WEIGHT RECORDED 184.00 pounds 184.00 pounds [facility] Height 60 Inches 060 Inches [facility] ID Date Data Source [id number] 06/05/2020 01:41:52 PM EST [facility] Name Value Range Interpretation Code Description Data Source(s) WEIGHT RECORDED 184.00 pounds 184.00 pounds [facility] Height 60 Inches 060 Inches [facility] Patient Treatment Plan of Care Planned Activity Planned Date Details Description Data Source (s) Cyanocobalamin 1000 MCG 02/02/2021 12:00:00 AM EDT eCW1 ([facility]) Insulin Glargine 100 UNIT/ML 11/30/2020 12:00:00 AM EDT eCW1 ([facility]) Insulin Glargine 100 UNIT/ML 11/30/2020 12:00:00 AM EDT eCW1 ([facility]) Nystatin 100 UNT/MG Topical Powder 11/23/2020 12:00:00 AM EDT eCW1 ([facility]) Nystatin 100 UNT/MG Topical Powder 11/23/2020 12:00:00 AM EDT eCW1 ([facility]) Nystatin 100 UNT/MG Topical Powder 11/23/2020 12:00:00 AM EDT eCW1 ([facility]) Nystatin 100 UNT/MG Topical Powder 11/23/2020 12:00:00 AM EDT eCW1 ([facility]) Nystatin 100 UNT/MG Topical Powder 11/23/2020 12:00:00 AM EDT eCW1 ([facility]) Nystatin 100 UNT/MG Topical Powder 11/23/2020 12:00:00 AM EDT eCW1 ([facility]) Nystatin 100 UNT/MG Topical Powder 11/23/2020 12:00:00 AM EDT eCW1 ([facility]) Nystatin 100 UNT/MG Topical Powder 11/23/2020 12:00:00 AM EDT eCW1 ([facility]) Nystatin 100 UNT/MG Topical Powder 11/23/2020 12:00:00 AM EDT eCW1 ([facility]) Nystatin 100 UNT/MG Topical Powder 11/23/2020 12:00:00 AM EDT eCW1 ([facility]) Fluconazole 150 MG Oral Tablet 11/21/2020 12:00:00 AM EDT eCW1 ([facility]) Nystatin 100 UNT/MG Topical Powder 11/21/2020 12:00:00 AM EDT eCW1 ([facility]) Fluconazole 150 MG Oral Tablet 11/21/2020 12:00:00 AM EDT eCW1 ([facility]) Nystatin 100 UNT/MG Topical Powder 11/21/2020 12:00:00 AM EDT eCW1 ([facility]) Fluconazole 150 MG Oral Tablet 11/21/2020 12:00:00 AM EDT eCW1 ([facility]) Nystatin 100 UNT/MG Topical Powder 11/21/2020 12:00:00 AM EDT eCW1 ([facility]) Fluconazole 150 MG Oral Tablet 11/21/2020 12:00:00 AM EDT eCW1 ([facility]) Nystatin 100 UNT/MG Topical Powder 11/21/2020 12:00:00 AM EDT eCW1 ([facility]) Fluconazole 150 MG Oral Tablet 11/21/2020 12:00:00 AM EDT eCW1 ([facility]) Nystatin 100 UNT/MG Topical Powder 11/21/2020 12:00:00 AM EDT eCW1 ([facility]) Nystatin 100 UNT/MG Topical Powder 11/21/2020 12:00:00 AM EDT eCW1 ([facility]) Fluconazole 150 MG Oral Tablet 11/21/2020 12:00:00 AM EDT eCW1 ([facility]) Nystatin 100 UNT/MG Topical Powder 11/21/2020 12:00:00 AM EDT eCW1 ([facility]) Fluconazole 150 MG Oral Tablet 11/21/2020 12:00:00 AM EDT eCW1 ([facility]) Nystatin 100 UNT/MG Topical Powder 11/21/2020 12:00:00 AM EDT eCW1 ([facility]) Fluconazole 150 MG Oral Tablet 11/21/2020 12:00:00 AM EDT eCW1 ([facility]) Nystatin 100 UNT/MG Topical Powder 11/21/2020 12:00:00 AM EDT eCW1 ([facility]) Fluconazole 150 MG Oral Tablet 11/21/2020 12:00:00 AM EDT eCW1 ([facility]) Nystatin 100 UNT/MG Topical Powder 11/21/2020 12:00:00 AM EDT eCW1 ([facility]) Fluconazole 150 MG Oral Tablet 11/21/2020 12:00:00 AM EDT eCW1 ([facility]) Fluconazole 150 MG Oral Tablet 11/21/2020 12:00:00 AM EDT eCW1 ([facility]) Nystatin 100 UNT/MG Topical Powder 11/21/2020 12:00:00 AM EDT eCW1 ([facility]) Fluconazole 150 MG Oral Tablet 11/21/2020 12:00:00 AM EDT eCW1 ([facility]) Nystatin 100 UNT/MG Topical Powder 11/21/2020 12:00:00 AM EDT eCW1 ([facility]) Fluconazole 150 MG Oral Tablet 11/21/2020 12:00:00 AM EDT eCW1 ([facility]) Nystatin 100 UNT/MG Topical Powder 11/21/2020 12:00:00 AM EDT eCW1 ([facility]) Test Strips - 11/15/2020 12:00:00 AM EDT eCW1 ([facility]) Test Strips - 11/15/2020 12:00:00 AM EDT eCW1 ([facility]) Test Strips - 11/15/2020 12:00:00 AM EDT eCW1 ([facility]) Test Strips - 11/15/2020 12:00:00 AM EDT eCW1 ([facility]) Test Strips - 11/15/2020 12:00:00 AM EDT eCW1 ([facility]) Test Strips - 11/15/2020 12:00:00 AM EDT eCW1 ([facility]) Test Strips - 11/15/2020 12:00:00 AM EDT eCW1 ([facility]) Test Strips - 11/15/2020 12:00:00 AM EDT eCW1 ([facility]) Test Strips - 11/15/2020 12:00:00 AM EDT eCW1 ([facility]) Test Strips - 11/15/2020 12:00:00 AM EDT eCW1 ([facility]) Test Strips - 11/15/2020 12:00:00 AM EDT eCW1 ([facility]) Test Strips - 11/15/2020 12:00:00 AM EDT eCW1 ([facility]) Test Strips - 11/15/2020 12:00:00 AM EDT eCW1 ([facility]) Test Strips - 11/15/2020 12:00:00 AM EDT eCW1 ([facility]) Test Strips - 11/15/2020 12:00:00 AM EDT eCW1 ([facility]) Test Strips - 11/15/2020 12:00:00 AM EDT eCW1 ([facility]) Test Strips - 11/15/2020 12:00:00 AM EDT eCW1 ([facility]) Levothyroxine Sodium 0.025 MG Oral Tablet 11/08/2020 12:00:00 AM ED T eCW1 ([facility]) Famotidine 20 MG Oral Tablet 06/22/2020 12:00:00 AM EST eCW1 ([facility])
[2021-03-16 16:26] LABS: BASO # 0.1 10^3/uL (0.0-0.2); BASO % 0.3 % (0.0-1.0); EOS # 0.1 10^3/uL (0.0-0.5); EOS % 0.6 % (0.0-3.0); HEMATOCRIT 35.7 % (36.0-47.0); HEMOGLOBIN 11.3 g/dl (12.0-15.5); LYMPH # 1.1 10^3/uL (1.5-5.0); LYMPH % 5.6 % (24.0-44.0); MEAN CORPUSCULAR HGB CONC 31.7 g/dl (32.0-36.5); MEAN CORPUSCULAR VOLUME 101.1 fl (80.0-96.0); MONO # 1.6 10^3/uL (0.0-0.8); MONO % 8.5 % (2.0-8.0); NEUTROPHILS # 15.6 10^3/uL (1.5-8.5); NEUTROPHILS % 82.8 % (36.0-66.0); PLATELET COUNT, AUTOMATED 156 10^3/uL (150-450); RED BLOOD COUNT 3.53 10^6/uL (4.00-5.40); WHITE BLOOD COUNT 18.8 10^3/uL (4.0-10.0)
--- NOTE | 2021-03-16 16:35 | REP ---
INDICATION: weakness. COMPARISON: Multiple the latest 03/12/2021 also portable TECHNIQUE: Portable FINDINGS: The technique utilized in obtaining the radiograph has magnified the cardiac silhouette and accentuated the interstitial markings. There is mild cardiomegaly accentuated by technique status quo. Lung rodriguez are stable. No acute patchy parenchymal opacities or pleural effusions have developed. The osseous structures are stable. IMPRESSION: Stable chest <Electronically signed by Jordi Caldwell > 03/16/21 [id number]
[2021-03-16 17:00] LABS: ALT/SGPT 40 U/L (12-78); BILIRUBIN,DIRECT 0.2 MG/DL (0.0-0.2); BILIRUBIN,TOTAL 0.8 MG/DL (0.2-1.0); BLOOD UREA NITROGEN 31 MG/DL (7-18); CALCIUM LEVEL 9.2 MG/DL (8.8-10.2); CARBON DIOXIDE LEVEL 23 MEQ/L (21-32); CHLORIDE LEVEL 109 MEQ/L (98-107); CK-MB VALUE MASS 1.7 NG/ML (<3.6); CPK CREATINE PHOSPHOKINASE 330 U/L (26-192); CREATININE FOR GFR 1.23 MG/DL (0.55-1.30); GLOMERULAR FILTRATION RATE 46.4 (>45); GLUCOSE, FASTING 77 MG/DL (70-100); MB/CK RELATIVE INDEX 0.52 (< OR =4); NT-PRO BNP 335 PG/ML (<125); POTASSIUM SERUM 3.8 MEQ/L (3.5-5.1); SODIUM LEVEL 139 MEQ/L (136-145); TOTAL PROTEIN 6.5 GM/DL (6.4-8.2); TROPONIN I < 0.02 NG/ML (< 0.10)
--- OUTSIDE RECORDS SUMMARY | 2021-03-16 17:17 | CCD ---
Author Author [facility] Organization [facility] Address Unknown Phone Unavailable Support Name Relationship Address Phone MARIOFATOU OHARA Next Of Kin Unknown MARY ANN GARZA Next Of Kin Unknown Unavailable REWIS, FOR ) ANTONIO([place] [address] RE Next Of Kin Unknown Unavailable RETIRED Next Of Kin Unknown Unavailable [place] [address] Raz Maldonado MD Next Of Kin [address] [place] [address] Loraine Meyers Next Of Kin [address] [place] [address] Gricelda Castillo Next Of Kin [address] [place] [address] Jose Sullivan Next Of Kin [address] [place] [address] Caity Yepez Next Of Kin [address] [place] [address] "" Next Of Kin [address] [place] [address] [employer] [place] [address] DISABLED Next Of Kin Unknown MARY ANN ALAMO Next Of Kin [address] [place] [address] RAJNI FRANCOIS Next Of Kin [address] [place], [place] [id number] UN Next Of Kin Unknown Unavailable EMMA SANCHEZ Next Of Kin [address] [address] REWIS, FOR ) ANTONIO([place] [address] Unavailable Holly ALAMO ECON [address] [place] [address] Unavailable Care Team Providers Care Watershed Program Manager Name Role Phone NO, PCP Unavailable Unavailable [...] I JIGAR PA Unavailable Unavailable DRAZEK, I JIGRA PA Unavailable Unavailable DRAZEK, I JIGAR PA [...] is protected by Article 27-F of the [facility] Public Health law. If you continue you may have access to information: Regarding HIV / AIDS; Provided by facilities licensed or operated by the [facility] Office of Mental Health; or Provided by the [facility] Office for People With Developmental Disabilities. If such information is present, then the following [facility] mandated warning applies: This information has [...] law may result in a fine or group home sentence or both. A general authorization for the release of medical or other information is NOT sufficient authorization for further disc losure. Allergies and Adverse Reactions Type Description Substance Reaction Status Data Source(s ) Propensity to adverse reactions Morphine Sulfate Morphine Confusion Active eCW1 ([facility]) No Known Environmental Allergies No Known Environmental Al lergies [facility] No Known Food Allergies No Known Food Allergies [facility] Propensity to adverse reactions OXYCODONE HCL-ACETAMINOPHEN OXYCODONE HCL-ACETAMINOPHEN UNKNOWN [facility] Family History Family Member Name Family Member Gender Family Member Status Date o f Status Description Data Source(s) Unknown Female Problem MEDENT ([facility]) Unknown Female Problem MEDENT ([facility]) Encounters Encounter Providers Location Date Indications Data Source(s ) [place] [address] [address] 03/06/2021 12:00:00 AM EDT eCW1 ([facility]) [place] [address] [address] 02/13/2021 12:00:00 AM EDT eCW1 ([facility]) [place] [address] [address] 02/05/2021 12:00:00 AM EDT eCW1 ([facility]) [place] [address] [address] 01/31/2021 12:00:00 AM EDT eCW1 ([facility]) OFFICE OUTPATIENT VISIT 15 MINUTES Attender: JIGAR GATICA Phys ical Therapy 12/14/2020 02:00:00 PM EDT MEDENT ([facility]) [place] [address] [address] 12/11/2020 12:00:00 AM EDT eCW1 ([facility]) [place] [address] [address] 11/28/2020 12:00:00 AM EDT eCW1 ([facility]) [place] [address] [address] 11/24/2020 12:00:00 AM EDT eCW1 ([facility]) [place] [address] [address] 11/24/2020 12:00:00 AM EDT eCW1 ([facility]) [place] [address] [address] 11/24/2020 12:00:00 AM EDT eCW1 ([facility]) [place] [address] [address] 11/24/2020 12:00:00 AM EDT eCW1 ([facility]) [place] [address] [address] 11/24/2020 12:00:00 AM EDT eCW1 ([facility]) [place] [address] [address] 11/24/2020 12:00:00 AM EDT eCW1 ([facility]) [place] [address] [address] 11/23/2020 12:00:00 AM EDT eCW1 ([facility]) [place] [address] [address] 11/23/2020 12:00:00 AM EDT eCW1 ([facility]) [place] [address] [address] 11/22/2020 12:00:00 AM EDT eCW1 ([facility]) [place] [address] [address] 11/22/2020 12:00:00 AM EDT eCW1 ([facility]) [place] [address] [address] 11/21/2020 12:00:00 AM EDT eCW1 ([facility]) [place] [address] [address] 11/20/2020 12:00:00 AM EDT eCW1 ([facility]) [place] [address] [address] 11/17/2020 12:00:00 AM EDT eCW1 ([facility]) [place] [address] [address] 11/15/2020 12:00:00 AM EDT eCW1 ([facility]) [place] [address] [address] 11/14/2020 12:00:00 AM EDT eCW1 ([facility]) [place] [address] [address] 11/14/2020 12:00:00 AM EDT eCW1 ([facility]) [place] [address] [address] 11/13/2020 12:00:00 AM EDT eCW1 ([facility]) [place] [address] [address] 11/09/2020 12:00:00 AM EDT [facility]1 [facility] [place] [address] [address] 10/27/2020 12:00:00 AM EDT eCW1 ([facility]) [place] [address] [address] 10/05/2020 12:00:00 AM EDT [facility]1 [facility] Outpatient Attender: Norma Asher MDConsultant: PCP NO 07/12/2020 07:15:00 AM EST - 07/12/2020 09:08:00 AM EST [facility] Patient discharged. [place] [address] [address] 06/26/2020 12:00:00 AM EST eCW1 ([facility]) [place] [address] [address] 06/22/2020 12:00:00 AM EST [facility]CW1 ([facility]) [place] [address] [address] 06/06/2020 12:00:00 AM EST eCW1 ([facility]) [place] [address] [address] 06/06/2020 12:00:00 AM EST eCW1 ([facility]) [place] [address] [address] 05/26/2020 12:00:00 AM EST eCW1 ([facility]) Outpatient Attender: Norma Asher MDConsultant: PCP NO 05/17/2020 09:00:00 AM EST - 05/17/2020 12:25:00 PM EST [facility] Patient discharged. [place] [address] [address] 05/15/2020 12:00:00 AM EST eCW1 [facility] Outpatient Attender: Norma Asher MDConsultant: PCP NO 05/10/2020 08:18:02 AM EST - 05/10/2020 09:40:00 AM EST [facility] Patient discharged. Outpatient Attender: CHAN ARAIZA MD [email or web address] 12:00:00 AM EDT - 02/04/2020 11:56:35 AM EDT [facility] Immunizations Vaccine Date Status Description Data Source(s) Moderna #2 dose COVID-19(given elsewhere) SARSCOV2 VAC 100MCG/0.5ML IM 08/16/2020 01:15:00 PM EDT completed eCW1 ([facility]) Moderna #2 dose COVID-19(given elsewhere) SARSCOV2 VAC 100MCG/0.5ML IM 08/16/2020 01:15:00 PM EDT completed eCW1 ([facility]) Moderna #2 dose COVID-19(given elsewhere) SARSCOV2 VAC 100MCG/0.5ML IM 08/16/2020 01:15:00 PM EDT completed eCW1 ([facility]) Moderna #2 dose COVID-19(given elsewhere) SARSCOV2 VAC 100MCG/0.5ML IM 08/16/2020 01:15:00 PM EDT completed eCW1 ([facility]) Moderna #2 dose COVID-19(given elsewhere) SARSCOV2 VAC 100MCG/0.5ML IM 08/16/2020 01:15:00 PM EDT completed eCW1 ([facility]) Moderna #2 dose COVID-19(given elsewhere) SARSCOV2 VAC 100MCG/0.5ML IM 08/16/2020 01:15:00 PM EDT completed eCW1 ([facility]) Moderna #2 dose COVID-19(given elsewhere) SARSCOV2 VAC 100MCG/0.5ML IM 08/16/2020 01:15:00 PM EDT completed eCW1 ([facility]) Moderna #2 dose COVID-19(given elsewhere) SARSCOV2 VAC 100MCG/0.5ML IM 08/16/2020 01:15:00 PM EDT completed eCW1 ([facility]) Moderna #2 dose COVID-19(given elsewhere) SARSCOV2 VAC 100MCG/0.5ML IM 08/16/2020 01:15:00 PM EDT completed eCW1 ([facility]) Moderna #2 dose COVID-19(given elsewhere) SARSCOV2 VAC 100MCG/0.5ML IM 08/16/2020 01:15:00 PM EDT completed eCW1 ([facility]) Moderna #2 dose COVID-19(given elsewhere) SARSCOV2 VAC 100MCG/0.5ML IM 08/16/2020 01:15:00 PM EDT completed eCW1 ([facility]) Moderna #2 dose COVID-19(given elsewhere) SARSCOV2 VAC 100MCG/0.5ML IM 08/16/2020 01:15:00 PM EDT completed eCW1 ([facility]) Moderna #2 dose COVID-19(given elsewhere) SARSCOV2 VAC 100MCG/0.5ML IM 08/16/2020 01:15:00 PM EDT completed eCW1 ([facility]) Moderna #2 dose COVID-19(given elsewhere) SARSCOV2 VAC 100MCG/0.5ML IM 08/16/2020 01:15:00 PM EDT completed eCW1 ([facility]) Moderna #2 dose COVID-19(given elsewhere) SARSCOV2 VAC 100MCG/0.5ML IM 08/16/2020 01:15:00 PM EDT completed eCW1 ([facility]) Moderna #2 dose COVID-19(given elsewhere) SARSCOV2 VAC 100MCG/0.5ML IM 08/16/2020 01:15:00 PM EDT completed eCW1 ([facility]) Moderna #2 dose COVID-19(given elsewhere) SARSCOV2 VAC 100MCG/0.5ML IM 08/16/2020 01:15:00 PM EDT completed eCW1 ([facility]) Moderna #2 dose COVID-19(given elsewhere) SARSCOV2 VAC 100MCG/0.5ML IM 08/16/2020 01:15:00 PM EDT completed eCW1 ([facility]) Moderna #2 dose COVID-19(given elsewhere) SARSCOV2 VAC 100MCG/0.5ML IM 08/16/2020 01:15:00 PM EDT completed eCW1 ([facility]) Moderna #2 dose COVID-19(given elsewhere) SARSCOV2 VAC 100MCG/0.5ML IM 08/16/2020 01:15:00 PM EDT completed eCW1 ([facility]) Moderna #2 dose COVID-19(given elsewhere) SARSCOV2 VAC 100MCG/0.5ML IM 08/16/2020 01:15:00 PM EDT completed eCW1 ([facility]) Moderna #2 dose COVID-19(given elsewhere) SARSCOV2 VAC 100MCG/0.5ML IM 08/16/2020 01:15:00 PM EDT completed eCW1 ([facility]) Moderna #2 dose COVID-19 (given elsewhere) SARSCOV2 VA C 100MCG/0.5ML IM 08/16/2020 01:15:00 PM EDT completed eCW1 ([facility]) Moderna #2 dose COVID-19 (given elsewhere) SARSCOV2 VA C 100MCG/0.5ML IM 08/16/2020 01:15:00 PM EDT completed eCW1 ([facility]) Moderna #2 dose COVID-19 (given elsewhere) SARSCOV2 VA C 100MCG/0.5ML IM 08/16/2020 01:15:00 PM EDT completed eCW1 ([facility]) Moderna #2 dose COVID-19(given elsewhere) SARSCOV2 VAC 100MCG/0.5ML IM 08/16/2020 01:15:00 PM EDT completed eCW1 ([facility]) COVID-19 VACCINE Moderna 08/16/2020 12:00:00 AM EDT completed [facility] Vaccine Series Complete: YESThis Data wa s Submitted to [facility] Via [employer]. COVID-19 VACCINE Moderna 07/19/2020 12:00:00 AM EDT completed [facility] Vaccine Series Complete: NOThis Data was Submitted to [facility] Via [employer]. Moderna #1 dose COVID-19(given elsewhere) SARSCOV2 VAC 100MCG/0.5ML IM 07/15/2020 01:14:00 PM EST completed eCW1 ([facility]) Moderna #1 dose COVID-19(given elsewhere) SARSCOV2 VAC 100MCG/0.5ML IM 07/15/2020 01:14:00 PM EST completed eCW1 ([facility]) Moderna #1 dose COVID-19(given elsewhere) SARSCOV2 VAC 100MCG/0.5ML IM 07/15/2020 01:14:00 PM EST completed eCW1 ([facility]) Moderna #1 dose COVID-19(given elsewhere) SARSCOV2 VAC 100MCG/0.5ML IM 07/15/2020 01:14:00 PM EST completed eCW1 ([facility]) Moderna #1 dose COVID-19(given elsewhere) SARSCOV2 VAC 100MCG/0.5ML IM 07/15/2020 01:14:00 PM EST completed eCW1 ([facility]) Moderna #1 dose COVID-19(given elsewhere) SARSCOV2 VAC 100MCG/0.5ML IM 07/15/2020 01:14:00 PM EST completed eCW1 ([facility]) Moderna #1 dose COVID-19(given elsewhere) SARSCOV2 VAC 100MCG/0.5ML IM 07/15/2020 01:14:00 PM EST completed eCW1 ([facility]) Moderna #1 dose COVID-19(given elsewhere) SARSCOV2 VAC 100MCG/0.5ML IM 07/15/2020 01:14:00 PM EST completed eCW1 ([facility]) Moderna #1 dose COVID-19(given elsewhere) SARSCOV2 VAC 100MCG/0.5ML IM 07/15/2020 01:14:00 PM EST completed eCW1 ([facility]) Moderna #1 dose COVID-19(given elsewhere) SARSCOV2 VAC 100MCG/0.5ML IM 07/15/2020 01:14:00 PM EST completed eCW1 ([facility]) Moderna #1 dose COVID-19(given elsewhere) SARSCOV2 VAC 100MCG/0.5ML IM 07/15/2020 01:14:00 PM EST completed eCW1 ([facility]) Moderna #1 dose COVID-19(given elsewhere) SARSCOV2 VAC 100MCG/0.5ML IM 07/15/2020 01:14:00 PM EST completed eCW1 ([facility]) Moderna #1 dose COVID-19(given elsewhere) SARSCOV2 VAC 100MCG/0.5ML IM 07/15/2020 01:14:00 PM EST completed eCW1 ([facility]) Moderna #1 dose COVID-19(given elsewhere) SARSCOV2 VAC 100MCG/0.5ML IM 07/15/2020 01:14:00 PM EST completed eCW1 ([facility]) Moderna #1 dose COVID-19(given elsewhere) SARSCOV2 VAC 100MCG/0.5ML IM 07/15/2020 01:14:00 PM EST completed eCW1 ([facility]) Moderna #1 dose COVID-19(given elsewhere) SARSCOV2 VAC 100MCG/0.5ML IM 07/15/2020 01:14:00 PM EST completed eCW1 ([facility]) Moderna #1 dose COVID-19(given elsewhere) SARSCOV2 VAC 100MCG/0.5ML IM 07/15/2020 01:14:00 PM EST completed eCW1 ([facility]) Moderna #1 dose COVID-19(given elsewhere) SARSCOV2 VAC 100MCG/0.5ML IM 07/15/2020 01:14:00 PM EST completed eCW1 ([facility]) Moderna #1 dose COVID-19(given elsewhere) SARSCOV2 VAC 100MCG/0.5ML IM 07/15/2020 01:14:00 PM EST completed eCW1 ([facility]) Moderna #1 dose COVID-19(given elsewhere) SARSCOV2 VAC 100MCG/0.5ML IM 07/15/2020 01:14:00 PM EST completed eCW1 ([facility]) Moderna #1 dose COVID-19(given elsewhere) SARSCOV2 VAC 100MCG/0.5ML IM 07/15/2020 01:14:00 PM EST completed eCW1 ([facility]) Moderna #1 dose COVID-19(given elsewhere) SARSCOV2 VAC 100MCG/0.5ML IM 07/15/2020 01:14:00 PM EST completed eCW1 ([facility]) Moderna #1 dose COVID-19 (given elsewhere) SARSCOV2 VA C 100MCG/0.5ML IM 07/15/2020 01:14:00 PM EST completed eCW1 ([facility]) Moderna #1 dose COVID-19 (given elsewhere) SARSCOV2 VA C 100MCG/0.5ML IM 07/15/2020 01:14:00 PM EST completed eCW1 ([facility]) Moderna #1 dose COVID-19 (given elsewhere) SARSCOV2 VA C 100MCG/0.5ML IM 07/15/2020 01:14:00 PM EST completed eCW1 ([facility]) Moderna #1 dose COVID-19(given elsewhere) SARSCOV2 VAC 100MCG/0.5ML IM 07/15/2020 01:14:00 PM EST completed eCW1 ([facility]) influenza, recombinant, quadrIvalent,injectable, prese rvative free 01/27/2020 01:54:00 PM EDT completed eCW1 ([facility]) influenza, recombinant, quadrIvalent,injectable, prese rvative free 01/27/2020 01:54:00 PM EDT completed eCW1 ([facility]) influenza, recombinant, quadrIvalent,injectable, prese rvative free 01/27/2020 01:54:00 PM EDT completed eCW1 ([facility]) influenza, recombinant, quadrIvalent,injectable, prese rvative free 01/27/2020 01:54:00 PM EDT completed eCW1 ([facility]) influenza, recombinant, quadrIvalent,injectable, prese rvative free 01/27/2020 01:54:00 PM EDT completed eCW1 ([facility]) influenza, recombinant, quadrIvalent,injectable, prese rvative free 01/27/2020 01:54:00 PM EDT completed eCW1 ([facility]) influenza, recombinant, quadrIvalent,injectable, prese rvative free 01/27/2020 01:54:00 PM EDT completed eCW1 ([facility]) influenza, recombinant, quadrIvalent,injectable, prese rvative free 01/27/2020 01:54:00 PM EDT completed eCW1 ([facility]) influenza, recombinant, quadrIvalent,injectable, prese rvative free 01/27/2020 01:54:00 PM EDT completed eCW1 ([facility]) influenza, recombinant, quadrIvalent,injectable, prese rvative free 01/27/2020 01:54:00 PM EDT completed eCW1 ([facility]) influenza, recombinant, quadrIvalent,injectable, prese rvative free 01/27/2020 01:54:00 PM EDT completed eCW1 ([facility]) influenza, recombinant, quadrIvalent,injectable, prese rvative free 01/27/2020 01:54:00 PM EDT completed eCW1 ([facility]) influenza, recombinant, quadrIvalent,injectable, prese rvative free 01/27/2020 01:54:00 PM EDT completed eCW1 ([facility]) influenza, recombinant, quadrIvalent,injectable, prese rvative free 01/27/2020 01:54:00 PM EDT completed eCW1 ([facility]) influenza, recombinant, quadrIvalent,injectable, prese rvative free 01/27/2020 01:54:00 PM EDT completed eCW1 ([facility]) influenza, recombinant, quadrIvalent,injectable, prese rvative free 01/27/2020 01:54:00 PM EDT completed eCW1 ([facility]) influenza, recombinant, quadrIvalent,injectable, prese rvative free 01/27/2020 01:54:00 PM EDT completed eCW1 ([facility]) influenza, recombinant, quadrIvalent,injectable, prese rvative free 01/27/2020 01:54:00 PM EDT completed eCW1 ([facility]) influenza, recombinant, quadrIvalent,injectable, prese rvative free 01/27/2020 01:54:00 PM EDT completed eCW1 ([facility]) influenza, recombinant, quadrIvalent,injectable, prese rvative free 01/27/2020 01:54:00 PM EDT completed eCW1 ([facility]) influenza, recombinant, quadrIvalent,injectable, prese rvative free 01/27/2020 01:54:00 PM EDT completed eCW1 ([facility]) influenza, recombinant, quadrIvalent,injectable, prese rvative free 01/27/2020 01:54:00 PM EDT completed eCW1 ([facility]) influenza, recombinant, quadrIvalent,injectable, prese rvative free 01/27/2020 01:54:00 PM EDT completed eCW1 ([facility]) influenza, recombinant, quadrIvalent,injectable, prese rvative free 01/27/2020 01:54:00 PM EDT completed eCW1 ([facility]) influenza, recombinant, quadrIvalent,injectable, prese rvative free 01/27/2020 01:54:00 PM EDT completed eCW1 ([facility]) influenza, recombinant, quadrIvalent,injectable, prese rvative free 01/27/2020 01:54:00 PM EDT completed eCW1 ([facility]) influenza, recombinant, quadrIvalent,injectable, prese rvative free 01/27/2020 01:54:00 PM EDT completed eCW1 ([facility]) Medications Medication Brand Name [...] { tablet} active Cyanocobalamin 1000 MCG eCW1 ([facility]) Acetaminophen 325 MG Oral Tablet Acetaminophen 325 MG 2020 12:00:00 AM EDT 1.0 {tablet_as_needed} active A cetaminophen 325 MG eCW1 ([facility]) meloxicam 7.5 MG Oral Tablet Meloxicam 7.5 MG Meloxicam 7.5 MG 02/02/2021 12:00:00 AM EDT 1.0 {tablet} active Me loxicam 7.5 MG eCW1 ([facility]) Cyanocobalamin 1000 MCG UNK 02/02/2021 12:00:00 AM EDT 1.0 { tablet} active Cyanocobalamin 1000 MCG eCW1 ([facility]) 12 HR Acetazolamide 500 MG Extended Rele ase Oral Capsule acetaZOLAMIDE ER 500 MG acetaZOLAMIDE ER 500 MG 02/02/2021 12:00:00 AM EDT 1.0 {capsule} active acetaZOLAMIDE ER 500 MG eCW1 ([facility]) BLOOD-GLUCOSE METER 02/02/2021 12:00:00 AM EDT misc 1 USE DIRECTED USE DIRECTED SOLD: 02/04/2021 Kely Mazariegos s meloxicam 7.5 MG Oral Tablet Meloxicam 7.5 MG Meloxicam 7.5 MG 02/02/2021 12:00:00 AM EDT 1.0 {tablet} active Me loxicam 7.5 MG eCW1 ([facility]) Polymyxin B 11251 UNT/ML / Trimethoprim 1 MG/ML Ophthalmic Solution Polymyxin B- Trimethoprim 67804-2.1 UNIT/ML Polymyxin B-Trimethoprim 89118-8.1 UNIT/ML 02/02/2021 12:00:00 AM EDT active Polymyxin B-Trimethoprim 70612- 0.1 UNIT/ML eCW1 ([facility]) Combivent Respimat 20-100 mcg/act UNK 02/02/2021 12:00:00 AM EDT 1.0 {puff} active Combivent Respimat 20-100 mcg/act eCW1 ([facility]) Cyanocobalamin 1000 MCG UNK 02/02/2021 12:00:00 AM EDT 1.0 { tablet} active Cyanocobalamin 1000 MCG eCW1 ([facility]) Combivent Respimat 20-100 mcg/act UNK 02/02/2021 12:00:00 AM EDT 1.0 {puff} active Combivent Respimat 20-100 mcg/act eCW1 ([facility]) Acetaminophen 325 MG Oral Tablet Acetaminophen 325 MG 2020 12:00:00 AM EDT 1.0 {tablet_as_needed} active A cetaminophen 325 MG eCW1 ([facility]) 12 HR Acetazolamide 500 MG Extended Rele ase Oral Capsule acetaZOLAMIDE ER 500 MG acetaZOLAMIDE ER 500 MG 02/02/2021 12:00:00 AM EDT 1.0 {capsule} active acetaZOLAMIDE ER 500 MG eCW1 ([facility]) 12 HR Acetazolamide 500 MG Extended Rele ase Oral Capsule acetaZOLAMIDE ER 500 MG acetaZOLAMIDE ER 500 MG 02/02/2021 12:00:00 AM EDT 1.0 {capsule} active acetaZOLAMIDE ER 500 MG eCW1 ([facility]) 12 HR Acetazolamide 500 MG Extended Rele ase Oral Capsule acetaZOLAMIDE ER 500 MG acetaZOLAMIDE ER 500 MG 02/02/2021 12:00:00 AM EDT 1.0 {capsule} active acetaZOLAMIDE ER 500 MG eCW1 ([facility]) meloxicam 7.5 MG Oral Tablet Meloxicam 7.5 MG Meloxicam 7.5 MG 02/02/2021 12:00:00 AM EDT 1.0 {tablet} active Me loxicam 7.5 MG eCW1 ([facility]) Polymyxin B 46582 UNT/ML / Trimethoprim 1 MG/ML Ophthalmic Solution Polymyxin B- Trimethoprim 08968-4.1 UNIT/ML Polymyxin B-Trimethoprim 39148-9.1 UNIT/ML 02/02/2021 12:00:00 AM EDT active Polymyxin B-Trimethoprim 96138- 0.1 UNIT/ML eCW1 ([facility]) Polymyxin B 53812 UNT/ML / Trimethoprim 1 MG/ML Ophthalmic Solution 10,000 unit- 1 mg/mL POLYMYXIN B SULF/TRIMETHOPRIM 02/02/2021 12:00:00 AM EDT drops 1 0 INSTILL 1 DROP IN THE RIGHT EYE SIX TIMES DAILY INSTILL 1 DROP IN THE RIGHT EYE SIX TIMES DAILY SOLD: 02/04/2021 Kely cruz Combivent Respimat 20-100 mcg/act UNK 02/02/2021 12:00:00 AM EDT 1.0 {puff} active Combivent Respimat 20-100 mcg/act eCW1 ([facility]) Cyanocobalamin 1000 MCG UNK 02/02/2021 12:00:00 AM EDT 1.0 { tablet} active Cyanocobalamin 1000 MCG eCW1 ([facility]) Polymyxin B 09802 UNT/ML / Trimethoprim 1 MG/ML Ophthalmic Solution Polymyxin B- Trimethoprim 98178-6.1 UNIT/ML Polymyxin B-Trimethoprim 67353-7.1 UNIT/ML 02/02/2021 12:00:00 AM EDT active Polymyxin B-Trimethoprim 05443- 0.1 UNIT/ML eCW1 ([facility]) Acetaminophen 325 MG Oral Tablet Acetaminophen 325 MG 2020 12:00:00 AM EDT 1.0 {tablet_as_needed} active A cetaminophen 325 MG eCW1 ([facility]) Combivent Respimat 20-100 mcg/act UNK 02/02/2021 12:00:00 AM EDT 1.0 {puff} active Combivent Respimat 20-100 mcg/act eCW1 ([facility]) Polymyxin B 22746 UNT/ML / Trimethoprim 1 MG/ML Ophthalmic Solution Polymyxin B- Trimethoprim 85825-1.1 UNIT/ML Polymyxin B-Trimethoprim 67746-7.1 UNIT/ML 02/02/2021 12:00:00 AM EDT active Polymyxin B-Trimethoprim 77961- 0.1 UNIT/ML eCW1 ([facility]) meloxicam 7.5 MG Oral Tablet Meloxicam 7.5 MG Meloxicam 7.5 MG 02/02/2021 12:00:00 AM EDT 1.0 {tablet} active Me loxicam 7.5 MG eCW1 ([facility] [facility]) Acetaminophen 325 MG Oral Tablet Acetaminophen 325 MG 2020 12:00:00 AM EDT 1.0 {tablet_as_needed} active A cetaminophen 325 MG eCW1 ([facility]) meloxicam 7.5 MG Oral Tablet MELOXICAM 12/15/2020 [...] 12:00:00 AM EDT ORAL active MEDENT ([facility]) 500 mg 12/09/2020 12:00:00 AM EDT capsule, extended relea se 60 TAKE ONE CAPSULE BY MOUTH TWICE A DAY TAKE ONE CAPSULE BY MOUTH TWICE A DAY SOLD: 12/11/2020 [facility] Insulin Glargine 100 UNIT/ML UNK 11/30/2020 12:00:00 AM EDT active Insulin Glargine 100 UNIT/ML eCW1 ([facility]) Insulin Glargine 100 UNIT/ML UNK 11/30/2020 12:00:00 AM EDT active Insulin Glargine 100 UNIT/ML eCW1 ([facility]) Insulin Glargine 100 UNIT/ML UNK 11/30/2020 12:00:00 AM EDT active Insulin Glargine 100 UNIT/ML eCW1 ([facility]) Insulin Glargine 100 UNIT/ML UNK 11/30/2020 12:00:00 AM EDT active Insulin Glargine 100 UNIT/ML eCW1 ([facility]) Insulin Glargine 100 UNIT/ML UNK 11/30/2020 12:00:00 AM EDT active Insulin Glargine 100 UNIT/ML eCW1 ([facility]) 3 ML Insulin Glargine 100 [...] EDT active Insulin Glargine 100 UNIT/ML eCW1 ([facility]) Insulin Glargine 100 UNIT/ML UNK 11/30/2020 12:00:00 AM EDT active Insulin Glargine 100 UNIT/ML eCW1 ([facility]) Nystatin 100 UNT/MG Topical Powder Nystatin 038180 UNI T/GM Nystatin 120184 UNIT/GM 11/23/2020 12:00:00 AM EDT 1.0 {application} active Nystatin 483617 UNIT/GM eCW1 ([facility]) Nystatin 100 UNT/MG Topical Powder Nystatin 659822 UNI T/GM Nystatin 707962 UNIT/GM 11/23/2020 12:00:00 AM EDT 1.0 {application} active Nystatin 750388 UNIT/GM eCW1 ([facility]) Nystatin 100 UNT/MG Topical Powder Nystatin 613908 UNI T/GM Nystatin 753311 UNIT/GM 11/23/2020 12:00:00 AM EDT 1.0 {application} active Nystatin 399837 UNIT/GM eCW1 ([facility]) Nystatin 100 UNT/MG Topical Powder Nystatin 019596 UNI T/GM Nystatin 077311 UNIT/GM 11/23/2020 12:00:00 AM EDT 1.0 {application} active Nystatin 947111 UNIT/GM eCW1 ([facility]) Nystatin 100 UNT/MG Topical Powder Nystatin 961503 UNI T/GM Nystatin 348603 UNIT/GM 11/23/2020 12:00:00 AM EDT 1.0 {application} active Nystatin 380561 UNIT/GM eCW1 ([facility]) Nystatin 100 UNT/MG Topical Powder 100,000 unit/gram [...] Drugs Nystatin 100 UNT/MG Topical Powder Nystatin 246920 UNI T/GM Nystatin 406318 UNIT/GM 11/23/2020 12:00:00 AM EDT 1.0 {application} active Nystatin 354119 UNIT/GM eCW1 ([facility]) Nystatin 100 UNT/MG Topical Powder Nystatin 380838 UNI T/GM Nystatin 049000 UNIT/GM 11/23/2020 12:00:00 AM EDT 1.0 {application} active Nystatin 034828 UNIT/GM eCW1 ([facility]) Nystatin 100 UNT/MG Topical Powder Nystatin 874879 UNI T/GM Nystatin 880250 UNIT/GM 11/23/2020 12:00:00 AM EDT 1.0 {application} active Nystatin 524882 UNIT/GM eCW1 ([facility]) Nystatin 100 UNT/MG Topical Powder Nystatin 915221 UNI T/GM Nystatin 988174 UNIT/GM 11/23/2020 12:00:00 AM EDT 1.0 {application} active Nystatin 908741 UNIT/GM eCW1 ([facility]) Nystatin 100 UNT/MG Topical Powder Nystatin 648159 UNI T/GM Nystatin 702503 UNIT/GM 11/23/2020 12:00:00 AM EDT 1.0 {application} active Nystatin 753347 UNIT/GM eCW1 ([facility]) Nystatin 100 UNT/MG Topical Powder Nystatin 161338 UNI T/GM Nystatin 915596 UNIT/GM 11/23/2020 12:00:00 AM EDT 1.0 {application} active Nystatin 743600 UNIT/GM eCW1 ([facility]) Nystatin 100 UNT/MG Topical Powder Nystatin 293102 UNI T/GM Nystatin 993232 UNIT/GM 11/23/2020 12:00:00 AM EDT 1.0 {application} active Nystatin 711853 UNIT/GM eCW1 ([facility]) Nystatin 100 UNT/MG Topical Powder Nystatin 928065 UNI T/GM Nystatin 595452 UNIT/GM 11/23/2020 12:00:00 AM EDT 1.0 {application} active Nystatin 830905 UNIT/GM eCW1 ([facility]) 150 mg 11/21/2020 12:00:00 AM EDT tablet [...] 1.0 {tablet} active Fluconazole 150 MG eCW1 ([facility]) Nystatin 100 UNT/MG Topical Powder Nystatin 443538 UNI T/GM Nystatin 193127 UNIT/GM 11/21/2020 12:00:00 AM EDT 1.0 {application} active Nystatin 025305 UNIT/GM eCW1 ([facility]) Nystatin 100 UNT/MG Topical Powder Nystatin 765143 UNI T/GM Nystatin 754228 UNIT/GM 11/21/2020 12:00:00 AM EDT 1.0 {application} active Nystatin 957569 UNIT/GM eCW1 ([facility]) Nystatin 100 UNT/MG Topical Powder Nystatin 945636 UNI T/GM Nystatin 872507 UNIT/GM 11/21/2020 12:00:00 AM EDT 1.0 {application} active Nystatin 945101 UNIT/GM eCW1 ([facility]) Nystatin 100 UNT/MG Topical Powder Nystatin 270444 UNI T/GM Nystatin 111955 UNIT/GM 11/21/2020 12:00:00 AM EDT 1.0 {application} active Nystatin 883082 UNIT/GM eCW1 ([facility]) Fluconazole 150 MG Oral Tablet Fluconazole 150 MG 11/21/2020 12:00: 00 AM EDT 1.0 {tablet} active Fluconazole 150 MG eCW1 ([facility]) Nystatin 100 UNT/MG Topical Powder Nystatin 373821 UNI T/GM Nystatin 057143 UNIT/GM 11/21/2020 12:00:00 AM EDT 1.0 {application} active Nystatin 754328 UNIT/GM eCW1 ([facility]) Nystatin 100 UNT/MG Topical Powder Nystatin 886205 UNI T/GM Nystatin 608580 UNIT/GM 11/21/2020 12:00:00 AM EDT 1.0 {application} active Nystatin 677201 UNIT/GM eCW1 ([facility]) Fluconazole 150 MG Oral Tablet Fluconazole 150 MG 11/21/2020 12:00: 00 AM EDT 1.0 {tablet} active Fluconazole 150 MG eCW1 ([facility]) Nystatin 100 UNT/MG Topical Powder Nystatin 217892 UNI T/GM Nystatin 111265 UNIT/GM 11/21/2020 12:00:00 AM EDT 1.0 {application} active Nystatin 471438 UNIT/GM eCW1 ([facility]) Fluconazole 150 MG Oral Tablet Fluconazole 150 MG 11/21/2020 12:00: 00 AM EDT 1.0 {tablet} active Fluconazole 150 MG eCW1 ([facility]) Fluconazole 150 MG Oral Tablet Fluconazole 150 MG 11/21/2020 12:00: 00 AM EDT 1.0 {tablet} active Fluconazole 150 MG eCW1 ([facility]) Fluconazole 150 MG Oral Tablet Fluconazole 150 MG 11/21/2020 12:00: 00 AM EDT 1.0 {tablet} active Fluconazole 150 MG eCW1 ([facility]) Nystatin 100 UNT/MG Topical Powder Nystatin 643837 UNI T/GM Nystatin 122084 UNIT/GM 11/21/2020 12:00:00 AM EDT 1.0 {application} active Nystatin 465284 UNIT/GM eCW1 ([facility]) Fluconazole 150 MG Oral Tablet Fluconazole 150 MG 11/21/2020 12:00: 00 AM EDT 1.0 {tablet} active Fluconazole 150 MG eCW1 ([facility]) Fluconazole 150 MG Oral Tablet Fluconazole 150 MG 11/21/2020 12:00: 00 AM EDT 1.0 {tablet} active Fluconazole 150 MG eCW1 ([facility]) BLOOD-GLUCOSE METER 11/21/2020 12:00:00 AM EDT mis 1 USE DAILY TO TEST BLOOD GLUCOSE USE DAILY TO TEST BLOOD GLUCOSE SOLD: 11/21/2020 [facility] Fluconazole 150 MG Oral Tablet Fluconazole 150 MG 11/21/2020 12:00: 00 AM EDT 1.0 {tablet} active Fluconazole 150 MG eCW1 ([facility]) Nystatin 100 UNT/MG Topical Powder Nystatin 645171 UNI T/GM Nystatin 037394 UNIT/GM 11/21/2020 12:00:00 AM EDT 1.0 {application} active Nystatin 565137 UNIT/GM eCW1 ([facility]) Nystatin 100 UNT/MG Topical Powder Nystatin 930104 UNI T/GM Nystatin 601186 UNIT/GM 11/21/2020 12:00:00 AM EDT 1.0 {application} active Nystatin 622972 UNIT/GM eCW1 ([facility]) Fluconazole 150 MG Oral Tablet Fluconazole 150 MG 11/21/2020 12:00: 00 AM EDT 1.0 {tablet} active Fluconazole 150 MG eCW1 ([facility]) Fluconazole 150 MG Oral Tablet Fluconazole 150 MG 11/21/2020 12:00: 00 AM EDT 1.0 {tablet} active Fluconazole 150 MG eCW1 ([facility]) Fluconazole 150 MG Oral Tablet Fluconazole 150 MG 11/21/2020 12:00: 00 AM EDT 1.0 {tablet} active Fluconazole 150 MG eCW1 ([facility]) Nystatin 100 UNT/MG Topical Powder Nystatin 898249 UNI T/GM Nystatin 085610 UNIT/GM 11/21/2020 12:00:00 AM EDT 1.0 {application} active Nystatin 581426 UNIT/GM eCW1 ([facility]) Nystatin 100 UNT/MG Topical Powder Nystatin 211320 UNI T/GM Nystatin 570154 UNIT/GM 11/21/2020 12:00:00 AM EDT 1.0 {application} active Nystatin 957632 UNIT/GM eCW1 ([facility]) Fluconazole 150 MG Oral Tablet Fluconazole 150 MG 11/21/2020 12:00: 00 AM EDT 1.0 {tablet} active Fluconazole 150 MG eCW1 ([facility]) Nystatin 100 UNT/MG Topical Powder Nystatin 949408 UNI T/GM Nystatin 082876 UNIT/GM 11/21/2020 12:00:00 AM EDT 1.0 {application} active Nystatin 612682 UNIT/GM eCW1 ([facility]) Nystatin 100 UNT/MG Topical Powder Nystatin 960511 UNI T/GM Nystatin 445498 UNIT/GM 11/21/2020 12:00:00 AM EDT 1.0 {application} active Nystatin 095353 UNIT/GM eCW1 ([facility]) Fluconazole 150 MG Oral Tablet Fluconazole 150 MG 11/21/2020 12:00: 00 AM EDT 1.0 {tablet} active Fluconazole 150 MG eCW1 ([facility]) Nystatin 100 UNT/MG Topical Powder Nystatin 072603 UNI T/GM Nystatin 271018 UNIT/GM 11/21/2020 12:00:00 AM EDT 1.0 {application} active Nystatin 210826 UNIT/GM eCW1 ([facility]) Fluconazole 150 MG Oral Tablet Fluconazole 150 MG 11/21/2020 12:00: 00 AM EDT 1.0 {tablet} active Fluconazole 150 MG eCW1 ([facility]) Nystatin 100 UNT/MG Topical Powder Nystatin 329119 UNI T/GM Nystatin 873739 UNIT/GM 11/21/2020 12:00:00 AM EDT 1.0 {application} active Nystatin 047108 UNIT/GM eCW1 ([facility]) Fluconazole 150 MG Oral Tablet Fluconazole 150 MG 11/21/2020 12:00: 00 AM EDT 1.0 {tablet} active Fluconazole 150 MG eCW1 ([facility]) Test Strips - UNK 11/15/2020 12:00:00 AM EDT acti ve Test Strips - eCW1 ([facility]) Test Strips - UNK 11/15/2020 12:00:00 AM EDT acti ve Test Strips - eCW1 ([facility]) Test Strips - UNK 11/15/2020 12:00:00 AM EDT acti ve Test Strips - eCW1 ([facility]) Test Strips - UNK 11/15/2020 12:00:00 AM EDT acti ve Test Strips - eCW1 ([facility]) Test Strips - K 11/15/2020 12:00:00 AM EDT acti ve Test Strips - eCW1 ([facility]) Test Strips - K 11/15/2020 12:00:00 AM EDT acti ve Test Strips - eCW1 ([facility]) Test Strips - [facility] 11/15/2020 12:00:00 AM EDT acti ve Test Strips - eCW1 ([facility]) Test Strips - [facility] 11/15/2020 12:00:00 AM EDT acti ve Test Strips - eCW1 ([facility]) Test Strips - [facility] 11/15/2020 12:00:00 AM EDT acti ve Test Strips - eCW1 ([facility]) Test Strips - [facility] 11/15/2020 12:00:00 AM EDT acti ve Test Strips - eCW1 ([facility]) Test Strips - [facility] 11/15/2020 12:00:00 AM EDT acti ve Test Strips - eCW1 ([facility]) Test Strips - [facility] 11/15/2020 12:00:00 AM EDT acti ve Test Strips - eCW1 ([facility]) Test Strips - [facility] 11/15/2020 12:00:00 AM EDT acti ve Test Strips - eCW1 ([facility]) Test Strips - [facility] 11/15/2020 12:00:00 AM EDT acti ve Test Strips - eCW1 ([facility]) Test Strips - [facility] 11/15/2020 12:00:00 AM EDT acti ve Test Strips - eCW1 ([facility]) Test Strips - [facility] 11/15/2020 12:00:00 AM EDT acti ve Test Strips - eCW1 ([facility]) Test Strips - [facility] 11/15/2020 12:00:00 AM EDT acti ve Test Strips - eCW1 ([facility]) Test Strips - [facility] 11/15/2020 12:00:00 AM EDT acti ve Test Strips - eCW1 ([facility]) Test Strips - UNK 11/15/2020 12:00:00 AM EDT acti ve Test Strips - eCW1 ([facility]) Test Strips - UNK 11/15/2020 12:00:00 AM EDT acti ve Test Strips - eCW1 ([facility]) Test Strips - UNK 11/15/2020 12:00:00 AM EDT acti ve Test Strips - eCW1 ([facility]) Test Strips - UNK 11/15/2020 12:00:00 AM EDT acti ve Test Strips - eCW1 ([facility]) Test Strips - K 11/15/2020 12:00:00 AM EDT acti ve Test Strips - eCW1 ([facility]) Test Strips - K 11/15/2020 12:00:00 AM EDT acti ve Test Strips - eCW1 ([facility]) 25 mcg 11/09/2020 12:00:00 AM EDT tablet 15 TAKE ONE-HALF TABLET BY MOUTH EVERY MORNING ON AN EMPTY STOMACH TAKE ONE-HALF TABLET BY MOUTH EVERY MORN ING ON AN EMPTY STOMACH SOLD: 11/11/2020 [facility] Levothyroxine Sodium 0.025 MG Oral Tablet Levothyroxin e Sodium 25 MCG Levothyroxine Sodium 25 MCG 11/08/2020 12:00:00 AM EDT active Levothyroxine Sodium 25 MCG eCW1 ([facility]) Levothyroxine Sodium 0.025 MG Oral Tablet Levothyroxin e Sodium 25 MCG Levothyroxine Sodium 25 MCG 11/08/2020 12:00:00 AM EDT active Levothyroxine Sodium 25 MCG eCW1 ([facility]) Levothyroxine Sodium 0.025 MG Oral Tablet Levothyroxin e Sodium 25 MCG Levothyroxine Sodium 25 MCG 11/08/2020 12:00:00 AM EDT active Levothyroxine Sodium 25 MCG eCW1 ([facility]) Levothyroxine Sodium 0.025 MG Oral Tablet Levothyroxin e Sodium 25 MCG Levothyroxine Sodium 25 MCG 11/08/2020 12:00:00 AM EDT active Levothyroxine Sodium 25 MCG eCW1 ([facility]) Levothyroxine Sodium 0.025 MG Oral Tablet Levothyroxin e Sodium 25 MCG Levothyroxine Sodium 25 MCG 11/08/2020 12:00:00 AM EDT active Levothyroxine Sodium 25 MCG eCW1 ([facility]) Levothyroxine Sodium 0.025 MG Oral Tablet Levothyroxin e Sodium 25 MCG Levothyroxine Sodium 25 MCG 11/08/2020 12:00:00 AM EDT active Levothyroxine Sodium 25 MCG eCW1 ([facility]) Levothyroxine Sodium 0.025 MG Oral Tablet Levothyroxin e Sodium 25 MCG Levothyroxine Sodium 25 MCG 11/08/2020 12:00:00 AM EDT active Levothyroxine Sodium 25 MCG eCW1 ([facility]) Levothyroxine Sodium 0.025 MG Oral Tablet Levothyroxin e Sodium 25 MCG Levothyroxine Sodium 25 MCG 11/08/2020 12:00:00 AM EDT active Levothyroxine Sodium 25 MCG eCW1 ([facility]) Levothyroxine Sodium 0.025 MG Oral Tablet Levothyroxin e Sodium 25 MCG Levothyroxine Sodium 25 MCG 11/08/2020 12:00:00 AM EDT active Levothyroxine Sodium 25 MCG eCW1 ([facility]) Levothyroxine Sodium 0.025 MG Oral Tablet Levothyroxin e Sodium 25 MCG Levothyroxine Sodium 25 MCG 11/08/2020 12:00:00 AM EDT active Levothyroxine Sodium 25 MCG eCW1 ([facility]) Levothyroxine Sodium 0.025 MG Oral Tablet Levothyroxin e Sodium 25 MCG Levothyroxine Sodium 25 MCG 11/08/2020 12:00:00 AM EDT active Levothyroxine Sodium 25 MCG eCW1 ([facility]) Levothyroxine Sodium 0.025 MG Oral Tablet Levothyroxin e Sodium 25 MCG Levothyroxine Sodium 25 MCG 11/08/2020 12:00:00 AM EDT active Levothyroxine Sodium 25 MCG eCW1 ([facility]) Levothyroxine Sodium 0.025 MG Oral Tablet Levothyroxin e Sodium 25 MCG Levothyroxine Sodium 25 MCG 11/08/2020 12:00:00 AM EDT active Levothyroxine Sodium 25 MCG eCW1 ([facility]) Levothyroxine Sodium 0.025 MG Oral Tablet Levothyroxin e Sodium 25 MCG Levothyroxine Sodium 25 MCG 11/08/2020 12:00:00 AM EDT active Levothyroxine Sodium 25 MCG eCW1 ([facility]) Levothyroxine Sodium 0.025 MG Oral Tablet Levothyroxin e Sodium 25 MCG Levothyroxine Sodium 25 MCG 11/08/2020 12:00:00 AM EDT active Levothyroxine Sodium 25 MCG eCW1 ([facility]) Levothyroxine Sodium 0.025 MG Oral Tablet Levothyroxin e Sodium 25 MCG Levothyroxine Sodium 25 MCG 11/08/2020 12:00:00 AM EDT active Levothyroxine Sodium 25 MCG eCW1 ([facility]) Levothyroxine Sodium 0.025 MG Oral Tablet Levothyroxin e Sodium 25 MCG Levothyroxine Sodium 25 MCG 11/08/2020 12:00:00 AM EDT active Levothyroxine Sodium 25 MCG eCW1 ([facility]) Levothyroxine Sodium 0.025 MG Oral Tablet Levothyroxin e Sodium 25 MCG Levothyroxine Sodium 25 MCG 11/08/2020 12:00:00 AM EDT active Levothyroxine Sodium 25 MCG eCW1 ([facility]) Levothyroxine Sodium 0.025 MG Oral Tablet Levothyroxin e Sodium 25 MCG Levothyroxine Sodium 25 MCG 11/08/2020 12:00:00 AM EDT active Levothyroxine Sodium 25 MCG eCW1 ([facility]) Levothyroxine Sodium 0.025 MG Oral Tablet Levothyroxin e Sodium 25 MCG Levothyroxine Sodium 25 MCG 11/08/2020 12:00:00 AM EDT active Levothyroxine Sodium 25 MCG eCW1 ([facility]) Levothyroxine Sodium 0.025 MG Oral Tablet Levothyroxin e Sodium 25 MCG Levothyroxine Sodium 25 MCG 11/08/2020 12:00:00 AM EDT active Levothyroxine Sodium 25 MCG eCW1 ([facility]) Levothyroxine Sodium 0.025 MG Oral Tablet Levothyroxin e Sodium 25 MCG Levothyroxine Sodium 25 MCG 11/08/2020 12:00:00 AM EDT active Levothyroxine Sodium 25 MCG eCW1 ([facility]) Levothyroxine Sodium 0.025 MG Oral Tablet Levothyroxin e Sodium 25 MCG Levothyroxine Sodium 25 MCG 11/08/2020 12:00:00 AM EDT active Levothyroxine Sodium 25 MCG eCW1 ([facility]) Levothyroxine Sodium 0.025 MG Oral Tablet Levothyroxin e Sodium 25 MCG Levothyroxine Sodium 25 MCG 11/08/2020 12:00:00 AM EDT active Levothyroxine Sodium 25 MCG eCW1 ([facility]) Levothyroxine Sodium 0.025 MG Oral Tablet Levothyroxin e Sodium 25 MCG Levothyroxine Sodium 25 MCG 11/08/2020 12:00:00 AM EDT active Levothyroxine Sodium 25 MCG eCW1 ([facility]) Levothyroxine Sodium 0.025 MG Oral Tablet Levothyroxin e Sodium 25 MCG Levothyroxine Sodium 25 MCG 11/08/2020 12:00:00 AM EDT active Levothyroxine Sodium 25 MCG eCW1 ([facility]) NITROFURANTOIN, MACROCRYSTALS 25 MG / Ni trofurantoin, [...] {tablet_at_bedtime_as_needed} active Fa motidine 20 MG W1 ([facility]) Famotidine 20 MG Oral Tablet Famotidine 20 MG 06/22/2020 12:00:00 A M EST 1.0 {tablet_at_bedtime_as_needed} active Fa motidine 20 MG eCW1 ([facility]) Famotidine 20 MG Oral Tablet Famotidine 20 MG 06/22/2020 12:00:00 A M EST 1.0 {tablet_at_bedtime_as_needed} active Fa motidine 20 MG eCW1 ([facility]) Famotidine 20 MG Oral Tablet Famotidine 20 MG 06/22/2020 12:00:00 A M EST 1.0 {tablet_at_bedtime_as_needed} active Fa motidine 20 MG eCW1 ([facility]) Famotidine 20 MG Oral Tablet Famotidine 20 MG 06/22/2020 12:00:00 A M EST 1.0 {tablet_at_bedtime_as_needed} active Fa motidine 20 MG eCW1 ([facility]) Famotidine 20 MG Oral Tablet Famotidine 20 MG 06/22/2020 12:00:00 A M EST 1.0 {tablet_at_bedtime_as_needed} active Fa motidine 20 MG eCW1 ([facility]) Famotidine 20 MG Oral Tablet Famotidine 20 MG 06/22/2020 12:00:00 A M EST 1.0 {tablet_at_bedtime_as_needed} active Fa motidine 20 MG eCW1 ([facility]) Famotidine 20 MG Oral Tablet Famotidine 20 MG 06/22/2020 12:00:00 A M EST 1.0 {tablet_at_bedtime_as_needed} active Fa motidine 20 MG eCW1 ([facility]) Famotidine 20 MG Oral Tablet Famotidine 20 MG 06/22/2020 12:00:00 A M EST 1.0 {tablet_at_bedtime_as_needed} active Fa motidine 20 MG eCW1 ([facility]) Famotidine 20 MG Oral Tablet Famotidine 20 MG 06/22/2020 12:00:00 A M EST 1.0 {tablet_at_bedtime_as_needed} active Fa motidine 20 MG eCW1 ([facility]) Famotidine 20 MG Oral Tablet Famotidine 20 MG 06/22/2020 12:00:00 A M EST 1.0 {tablet_at_bedtime_as_needed} active Fa motidine 20 MG eCW1 ([facility]) Famotidine 20 MG Oral Tablet Famotidine 20 MG 06/22/2020 12:00:00 A M EST 1.0 {tablet_at_bedtime_as_needed} active Fa motidine 20 MG eCW1 ([facility]) Famotidine 20 MG Oral Tablet Famotidine 20 MG 06/22/2020 12:00:00 A M EST 1.0 {tablet_at_bedtime_as_needed} active Fa motidine 20 MG eCW1 ([facility]) Famotidine 20 MG Oral Tablet Famotidine 20 MG 06/22/2020 12:00:00 A M EST 1.0 {tablet_at_bedtime_as_needed} active Fa motidine 20 MG eCW1 ([facility]) Famotidine 20 MG Oral Tablet Famotidine 20 MG 06/22/2020 12:00:00 A M EST 1.0 {tablet_at_bedtime_as_needed} active Fa motidine 20 MG eCW1 ([facility]) Famotidine 20 MG Oral Tablet Famotidine 20 MG 06/22/2020 12:00:00 A M EST 1.0 {tablet_at_bedtime_as_needed} active Fa motidine 20 MG eCW1 ([facility]) Famotidine 20 MG Oral Tablet Famotidine 20 MG 06/22/2020 12:00:00 A M EST 1.0 {tablet_at_bedtime_as_needed} active Fa motidine 20 MG eCW1 ([facility]) Famotidine 20 MG Oral Tablet Famotidine 20 MG 06/22/2020 12:00:00 A M EST 1.0 {tablet_at_bedtime_as_needed} active Fa motidine 20 MG eCW1 ([facility]) Famotidine 20 MG Oral Tablet Famotidine 20 MG 06/22/2020 12:00:00 A M EST 1.0 {tablet_at_bedtime_as_needed} active Fa motidine 20 MG eCW1 ([facility]) Famotidine 20 MG Oral Tablet Famotidine 20 MG 06/22/2020 12:00:00 A M EST 1.0 {tablet_at_bedtime_as_needed} active Fa motidine 20 MG eCW1 ([facility]) Famotidine 20 MG Oral Tablet Famotidine 20 MG 06/22/2020 12:00:00 A M EST 1.0 {tablet_at_bedtime_as_needed} active Fa motidine 20 MG eCW1 ([facility]) Famotidine 20 MG Oral Tablet Famotidine 20 MG 06/22/2020 12:00:00 A M EST 1.0 {tablet_at_bedtime_as_needed} active Fa motidine 20 MG eCW1 ([facility]) Famotidine 20 MG Oral Tablet Famotidine 20 MG 06/22/2020 12:00:00 A M EST 1.0 {tablet_at_bedtime_as_needed} active Fa motidine 20 MG eCW1 ([facility]) Famotidine 20 MG Oral Tablet Famotidine 20 MG 06/22/2020 12:00:00 A M EST 1.0 {tablet_at_bedtime_as_needed} active Fa motidine 20 MG eCW1 ([facility]) Famotidine 20 MG Oral Tablet Famotidine 20 MG 06/22/2020 12:00:00 A M EST 1.0 {tablet_at_bedtime_as_needed} active Fa motidine 20 MG eCW1 ([facility]) Famotidine 20 MG Oral Tablet Famotidine 20 MG 06/22/2020 12:00:00 A M EST 1.0 {tablet_at_bedtime_as_needed} active Fa motidine 20 MG eCW1 ([facility]) Famotidine 20 MG Oral Tablet Famotidine 20 MG 06/22/2020 12:00:00 A M EST 1.0 {tablet_at_bedtime_as_needed} active Fa motidine 20 MG eCW1 ([facility]) Famotidine 20 MG Oral Tablet Famotidine 20 MG 06/22/2020 12:00:00 A M EST 1.0 {tablet_at_bedtime_as_needed} active Fa motidine 20 MG eCW1 ([facility]) Famotidine 20 MG Oral Tablet Famotidine 20 MG 06/22/2020 12:00:00 A M EST 1.0 {tablet_at_bedtime_as_needed} active Fa motidine 20 MG eCW1 ([facility]) 1 mg 06/07/2020 12:00:00 AM EST tablet [...] type / Coverage type Policy ID Covered alliance party ID Covered alliance party's relationship to mon[place] Policy [place] Plan Information [place] [id number] [place] [id number] Self [id number] Medicare [facility] Medigap Part B [id number] Self [id number] [place] [id number] Self [id number] [place] [id number] Self [id number] [place] [id number] Self [id number] MEDICARE [id number] SP [id number] W [place] [id number] Self [id number] [place] [id number] Self [id number] MEDICARE [id number] [facility] [id number] [place] [id number] Self [id number] [place] [id number] Self [id number] [place] [id number] Self [place] [id number] Self [id number] [place] [id number] Self [id number] [place] [id number] Self [id number] zzMedicaid FFS O [id number] S [id number] Medicaid S [id number] S [id number] Medicare P [id number] S [id number] W Medicaid S [id number] S [id number] Medicaid O [id number] S [id number] Medicare S [id number] S [id number] W [facility] MCRO [id number] SP [id number] [facility] Medicare Commercial Dual Complete [id number] Self Dual Complete [facility] MCRO [id number] SP [id number] [facility] Secure Horizons P [id number] S [id number] [facility] Secure Horizons P [id number] S [id number] [facility] Secure [employer]izons P [id number] S [id number] [place] [id number] Self [id number] [facility] ([facility]) Commercial [id number] [place] B [id number] Self [facility] ([facility]) Commercial [id number] Self [id number] [facility] ([facility]) Medigap Part B [id number] Self [id number] [place] [id number] Self [id number] [place] [id number] Self [id number] [facility] ([facility]) Medigap Part B [id number] Self [id number] [place] [id number] Self [id number] [facility] ([facility]) Medigap Part B [id number] Self [id number] [place] [id number] Self [id number] [facility] ([facility]) Medigap Part B [id number] Self [id number] [place] [id number] Self [id number] [facility] ([facility]) Medigap Part B [id number] Self [id number] [place] [id number] Self [id number] [facility] ([facility]) Commercial [id number] Self [id number] [place] [id number] Self [id number] [facility] ([facility]) Medigap Part B [id number] Self [id number] [place] [id number] Self [id number] [facility] ([facility]) Medigap Part B [id number] Self [id number] [place] [id number] .[id number] Self [id number] [facility] ([facility]) Medigap Part B [id number] Self [id number] [place] [id number] Self [id number] [facility] ([facility]) Medigap Part B [id number] Self [id number] [place] [id number] Self [id number] [facility] ([facility]) Commercial [id number] Self [id number] Medicaid S [id number] S [id number] [facility] Medicare Commercial [id number] Self [id number] [facility] [id number] SP [id number] [employer] MEDICARE [id number] Danielle [id number] [facility] Hmo Commercial [id number] Self [id number] MEDICARE [facility]TE-[facility] O [id number] S [id number] [facility] Medicare Medigap Part B [id number] Self [id number] [facility]) O [id number] S [id number] [facility] Hmo Commercial [id number] Self [employer] HMO [id number] SP [id number] [facility] [id number] SP [id number] [employer] HMO [id number] SP [id number] MEDICARE [id number] SP [id number] MEDICAID [id number] SP [id number] MEDICARE [id number] SP [id number] [id number] [facility](MCAID) O [id number] S [id number] MEDICARE C [id number] S [id number] W Medicare Wrap O [id number] S [id number] [place] [id number] SP [id number] W MEDICAID M [id number] S [id number] [employer] GOLD O [id number] S [id number] [place] [id number] SP [id number] [employer] GOLD PLUS -O/P [id number] 18 [id number] MEDICARE [id number] SP [id number] W zzMedicaid FFS O [id number] S [id number] [employer] GOLD [id number] SP [id number] [employer] GOLD [id number] SP [id number] [employer] [facility] Medicare Medigap Part B [id number] Self [id number] MEDICARE [id number] SP [id number] W MEDICAID [id number] SP [id number] Problems, Conditions, and Diagnoses Code Display Name Description Problem Type Effective Dates Data Source(s) Z794 skilled nursing (current) use of insulin skilled nursing (cu rrent) use of insulin Diagnosis 07/12/2020 07:15:00 AM [facility] Z885 Allergy status to narcotic agent Allergy status to narcotic agent Diagnosis 07/12/2020 07:15:00 AM [facility] R61550 Preglaucoma, unspecified, bilateral Preglaucoma, unspecified, bilateral Diagnosis 07/12/2020 07:15:00 AM [facility] H524 Presbyopia Presbyopia Diagnosis 07/12/2020 07:15:00 AM [facility] F329 Major depressive disorder, single episod e, unspecified Major depressive disorder, single episode, unspecified Diagnosis 07/12/2020 07:15:00 AM [facility] F419 Anxiety disorder, unspecified Anxiety disorder, unspec ified Diagnosis 07/12/2020 07:15:00 AM [facility] I10 Essential (primary) hypertension Essential (primary) h ypertension Diagnosis 07/12/2020 07:15:00 AM [facility] H2513 Age-related nuclear cataract, bilateral Age-related nuclear cataract, bilateral Diagnosis 07/12/2020 07:15:00 AM [facility] E1136 Type 2 diabetes mellitus with diabetic c ataract Type 2 diabetes mellitus with diabetic cataract Diagnosis 07/12/2020 07:15:00 AM [facility] Z833 Family history of diabetes mellitus Family histo ry of diabetes mellitus Diagnosis 05/17/2020 09:00:00 AM [facility] Z8249 Family history of ischemic h eart disease and other diseases of the circulatory system Family history of ischemic heart disease and other diseases of the circulatory system Diagnosis 05/17/2020 09:00:00 AM [facility] F25074 Other oysterman (current) drug therapy O ther oysterman (current) drug therapy Diagnosis 05/17/2020 09:00:00 AM [facility] F411 Generalized anxiety disorder Generalized anxiety disor johnathan Diagnosis 05/17/2020 09:00:00 AM [facility] H259 Unspecified age-related cataract Unspecified age -related cataract Diagnosis 05/17/2020 09:00:00 AM [facility] A45739 Encounter for other preprocedural examin ation Encounter for other preprocedural examination Diagnosis 05/10/2020 09:20:00 AM [facility] E66.9 Obesity, unspecified Obesity, unspecified Diagnosis 02/04/2020 11:09:03 AM EDT [facility] R60.9 Edema, unspecified Edema, unspecified Diagnosis 06/2019 11:09:03 AM EDT [facility] E11.9 Type 2 diabetes mellitus without complic ations Type 2 diabetes mellitus without complic Diagnosis 02/04/2020 11:09:03 AM EDT [facility] R94.31 Abnormal electrocardiogram [ECG] [EKG] A bnormal electrocardiogram (ECG) (EKG) Diagnosis 02/04/2020 11:09:03 AM EDT [facility] G47.33 Obstructive sleep apnea (adult) (pediatr ic) Obstructive sleep apnea (adult) (pediatr Diagnosis 02/04/2020 11:09:03 AM EDT [facility] E03.9 Hypothyroidism, unspecified Hypothyroidism, unspecifie d Diagnosis 02/04/2020 11:09:03 AM EDT [facility] J44.9 Chronic obstructive pulmonary disease, u nspecified Chronic obstructive pulmonary disease, u Diagnosis 02/04/2020 11:09:03 AM EDT [facility] I10 Essential (primary) hypertension Essential (primary) h ypertension Diagnosis 02/04/2020 11:09:03 AM EDT [facility] E78.5 Hyperlipidemia, unspecified Hyperlipidemia, unspecifie d Diagnosis 02/04/2020 11:09:03 AM EDT [facility] E03.9 [id number] Hypothyroidism, unspecified type Problem 02/10/2021 12:00:00 AM EDT eCW1 ([facility]) R29.6 [id number] Frequent falls Problem 02/09/2021 12:00:00 A M EDT eCW1 ([facility]) E11.8 [id number] Type 2 diabetes mellitus with complicatio ns Problem 11/30/2020 12:00:00 AM EDT eCW1 ([facility]) N18.4 [id number] Chronic kidney disease, stage 4 (severe) Problem 11/30/2020 12:00:00 AM EDT eCW1 ([facility]) E78.5 Hyperlipidemia Hyperlipidemia, unspecified Problem 10/05/2020 12:00:00 AM EDT eCW1 ([facility]) Z92.241 [id number] History of steroid therapy Problem 12:00:00 AM EDT eCW1 ([facility]) E11.22 [id number] 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 Problem 06/22/2020 12:00:00 AM EST eCW1 ([facility] G47.00 [id number] Insomnia, unspecified type Problem 12:00:00 AM EST eCW1 ([facility]) G47.9 [id number] Sleep disturbance Problem 06/22/2020 12:00:0 0 AM EST eCW1 ([facility]) H25.11 [id number] Age-related nuclear cataract, right ey e Problem 05/08/2020 12:00:00 AM EST eCW1 ([facility]) E11.21 [id number] 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 Problem 03/30/2020 12:00:00 AM EST eCW1 ([facility]) I10 [id number] Hypertension, unspecified type Problem 03/30 12:00:00 AM EST eCW1 ([facility]) F17.200 [id number] Smoker Problem 03/30/2020 12:00:00 AM ES T eCW1 ([facility]) Z90.81 [id number] Asplenia after surgical procedure Problem 03/30/2020 12:00:00 AM EST eCW1 ([facility]) E11.69 [id number] Type 2 diabetes mellitus with ot her specified complication Problem 03/30/2020 12:00:00 AM EST eCW1 ([facility]) Surgeries/Procedures Procedure Description Date Indications Data Source(s) RADEX HAND MINIMUM 3 VIEWS 12/14/2020 12:00:00 AM EDT [facility] ([facility]) OFFICE OUTPATIENT VISIT 15 MINUTES 12/14/2020 12:00:00 AM EDT [facility] ([facility]) THERAPEUTIC PX 1/> AREAS EACH 15 MIN EXERCISES 12:00:00 AM EDT [facility] ([facility] ) Results ID Date Data Source [id number] 01/31/2021 05:10:00 PM EDT [facility] Name Value Range Interpretation Code Description Data Anju rce(s) Supporting Document(s) SARS coronavirus 2 RNA [Presence] in Res piratory specimen by HECTOR with probe detection NEGATIVE [facility] This lab was ordered by [facility] a nd reported by [facility]. ID Date Data Source [id number] 12/08/2020 04:45:00 PM EDT [facility] Name Value Range Interpretation Code Description Data Anju rce(s) Supporting Document(s) SARS-CoV-2 (COVID-19) Negative [facility] This lab was ordered by [facility] and reported by [facility]. ID Date Data Source [facility] URINALYSIS 11/09/2020 12:00:00 AM EDT eCW1 ([facility]) Name Value Range Interpretation Code Description Data Anju rce(s) Supporting Document(s) UA URINALYSIS eCW1 ([facility]) ID Date Data Source [id number] 07/19/2020 02:01:00 [place] [address] OPERATIVE SUMMARYNAME: MAZIN BENITEZ DATE OF : 1955TTENDING PHYS: Norma Asher MD DATE: 07/12/20 MR#: [id number] OF PROCEDURE: 07/12/20PREOPERATIVE DIAGNOSIS: Cataract, left eye.POSTOPERATIVE DIAGNOSIS: Cataract, left eyePROCEDURE: Phacoemulsification with cataract removal with the help of ORA, IOL lens useAUOOTO 18.5 diopter.SURGEON: Norma Asher MD.TRAINMASTER: None.INDICATIONS: Decreased vision interfering with daily activities.DETAILS [...] salt solution followed by phacoemulsification in a pvrcmi-eie-ylkegwi methodwithin the capsular bag. Excess cortical material [...] rce(s) Supporting Document(s) ID Date Data Source [id number] 07/07/2020 01:46:00 PM EST [facility] Name Value Range Interpretation Code Description Data Anju rce(s) Supporting Document(s) SARS-CoV-2 (COVID-19) Negative [facility] This lab was ordered by [facility] and reported by [facility]. ID Date Data Source [id number] 06/25/2020 09:05:00 AM EST [facility] Name Value Range Interpretation Code Description Data Anju rce(s) Supporting Document(s) SARS-CoV-2 (COVID 19) NEGATIVE - SARS-CoV-2 (COVID19) [facility] This lab was ordered by [facility] a nd reported by [facility]. ID Date Data Source [id number] 05/25/2020 08:51:00 [place] [address] OPERATIVE SUMMARYNAME: MAZIN BENITEZ DATE OF : 3ATTENDING PHYS: Norma Asher MD DATE: 05/17/20 MR#: [id number] OF PROCEDURE: 05/17/2020REOPERATIVE DIAGNOSIS: Cataract, right eye.POSTOPERATIVE DIAGNOSIS: Cataract, right eyePROCEDURE: Phacoemulsification with intraocular lens implantation with the help of DIEGO GIFFORD 18 diopters.SURGEON: Norma Asher MD.TRAINMASTER: None.COMPLICATIONS: None.INDICATIONS: Decreased vision interfering with daily [...] salt solution followed by phacoemulsification in a vjhlfb-oag-fpcwanl methodwithin the capsular bag. Excess cortical material [...] condition.DD: Norma Asher MD 05/25/20 08:27 1 [place] [address] OPERATIVE SUMMARYNAME: MAZIN BENITEZ DATE OF : 1955TTENDING PHYS: Norma Asher MD DATE: 05/17/20 MR#: [id number]: SSR 05/25/20 08:50DS: Norma Asher MD 06/05/20 13:41 2 Name Value Range Interpretation Code Description Data Anju rce(s) Supporting Document(s) ID Date Data Source [id number] 05/12/2020 11:07:00 AM EST [facility] Name Value Range Interpretation Code Description Data Anju rce(s) Supporting Document(s) SARS-CoV-2 (COVID-19) Negative [facility] This lab was ordered by [facility] and reported by [facility]. Procedure Social History Code Duration Value Status Description Data Source(s ) Smoking 03/02/2021 12:00:00 AM EDT Former Smoker completed Former Smoker eCW1 ([facility]) Smoking 02/09/2021 12:00:00 AM EDT Former Smoker completed Former Smoker eCW1 ([facility]) Smoking 02/09/2021 12:00:00 AM EDT Former Smoker completed Former Smoker eCW1 ([facility]) Smoking 01/01/2021 12:00:00 AM EDT Former Smoker completed Former Smoker eCW1 ([facility]) Smoking 01/01/2021 12:00:00 AM EDT Former Smoker completed Former Smoker eCW1 ([facility]) Smoking 11/28/2020 12:00:00 AM EDT Former Smoker completed Former Smoker eCW1 ([facility]) Smoking 11/28/2020 12:00:00 AM EDT Former Smoker completed Former Smoker eCW1 ([facility]) Smoking 11/09/2020 12:00:00 AM EDT Former Smoker completed Former Smoker eCW1 ([facility]) Smoking 11/09/2020 12:00:00 AM EDT Former Smoker completed Former Smoker eCW1 ([facility]) Smoking 11/09/2020 12:00:00 AM EDT Former Smoker completed Former Smoker eCW1 ([facility]) Smoking 11/09/2020 12:00:00 AM EDT Former Smoker completed Former Smoker eCW1 ([facility]) Smoking 11/09/2020 12:00:00 AM EDT Former Smoker completed Former Smoker eCW1 ([facility]) Smoking 11/09/2020 12:00:00 AM EDT Former Smoker completed Former Smoker eCW1 ([facility]) Smoking 11/09/2020 12:00:00 AM EDT Former Smoker completed Former Smoker eCW1 ([facility]) Smoking 11/09/2020 12:00:00 AM EDT Former Smoker completed Former Smoker eCW1 ([facility]) Smoking 11/09/2020 12:00:00 AM EDT Former Smoker completed Former Smoker eCW1 ([facility]) Smoking 11/09/2020 12:00:00 AM EDT Former Smoker completed Former Smoker eCW1 ([facility]) Smoking 11/09/2020 12:00:00 AM EDT Former Smoker completed Former Smoker eCW1 ([facility]) Smoking 11/09/2020 12:00:00 AM EDT Former Smoker completed Former Smoker eCW1 ([facility]) Smoking 11/09/2020 12:00:00 AM EDT Former Smoker completed Former Smoker eCW1 ([facility]) Smoking 11/09/2020 12:00:00 AM EDT Former Smoker completed Former Smoker eCW1 ([facility]) Smoking 11/09/2020 12:00:00 AM EDT Former Smoker completed Former Smoker eCW1 ([facility]) Smoking 11/09/2020 12:00:00 AM EDT Former Smoker completed Former Smoker eCW1 ([facility]) Smoking 11/09/2020 12:00:00 AM EDT Former Smoker completed Former Smoker eCW1 ([facility]) Smoking 11/09/2020 12:00:00 AM EDT Former Smoker completed Former Smoker eCW1 ([facility]) Smoking 11/09/2020 12:00:00 AM EDT Former Smoker completed Former Smoker eCW1 ([facility]) Smoking 10/26/2020 12:00:00 AM EDT Former Smoker completed Former Smoker eCW1 ([facility]) Smoking 07/06/2020 12:00:00 AM EST Former Smoker completed Former Smoker eCW1 ([facility]) Smoking 06/21/2020 12:00:00 AM EST Former Smoker completed Former Smoker eCW1 ([facility]) Smoking 05/22/2020 12:00:00 AM EST Former Smoker completed Former Smoker eCW1 ([facility]) Smoking 05/22/2020 12:00:00 AM EST Former Smoker completed Former Smoker eCW1 ([facility]) Smoking 05/22/2020 12:00:00 AM EST Former Smoker completed Former Smoker eCW1 ([facility]) Smoking 05/08/2020 12:00:00 AM EST Former Smoker completed Former Smoker eCW1 ([facility]) Vital Signs ID Date Data Source UNK Name Value Range Interpretation Code Description Data Source(s) Body temperature 96.9 [degF] 96.9 [degF] [facility] ([facility]) Body height 61.75 [in_i] 61.75 [in_i] [facility] ([facility]) 5'1.75" Body weight 168.12 [lb_av] 168.12 [lb_av] MEDEN T ([facility]) Body mass index (BMI) [Ratio] 31.0 kg/m2 31.0 k g/m2 [facility] ([facility]) Body weight 181.0 [lb_av] 181.0 [lb_av] eCW1 ([facility]) Body height 61.75 [in_i] 61.75 [in_i] eCW1 ([facility]) Body mass index (BMI) [Ratio] 33.37 kg/m2 33.37 kg/m2 eCW1 ([facility]) Heart rate 77 /min 77 /min eCW1 ([facility]) Respiratory rate 18 /min 18 /min eCW1 ([facility]) Body temperature 96.9 [degF] 96.9 [degF] eCW1 ( [facility]) Systolic blood pressure 130 mm[Hg] 130 mm[Hg] e CW1 ([facility]) Diastolic blood pressure 70 mm[Hg] 70 mm[Hg] eCW1 ([facility]) Body weight 179.8 [lb_av] 179.8 [lb_av] eCW1 ([facility]) Body height 61.75 [in_i] 61.75 [in_i] eCW1 ([facility]) Respiratory rate 18 /min 18 /min eCW1 ([facility]) Body mass index (BMI) [Ratio] 33.15 kg/m2 33.15 kg/m2 eCW1 ([facility]) Heart rate 75 /min 75 /min eCW1 ([facility]) Body temperature 96.1 [degF] 96.1 [degF] eCW1 ( [facility]) Systolic blood pressure 130 mm[Hg] 130 mm[Hg] e CW1 ([facility]) Diastolic blood pressure 80 mm[Hg] 80 mm[Hg] eCW1 ([facility]) Body weight 177.6 [lb_av] 177.6 [lb_av] eCW1 ([facility]) Diastolic blood pressure 88 mm[Hg] 88 mm[Hg] eCW1 ([facility]) Body height 61.75 [in_i] 61.75 [in_i] eCW1 ([facility]) Body mass index (BMI) [Ratio] 32.74 kg/m2 32.74 kg/m2 eCW1 ([facility]) Heart rate 78 /min 78 /min eCW1 ([facility]) Respiratory rate 18 /min 18 /min eCW1 ([facility]) Body temperature 97.8 [degF] 97.8 [degF] eCW1 ( [facility]) Systolic blood pressure 130 mm[Hg] 130 mm[Hg] e CW1 ([facility]) Body weight 184.6 [lb_av] 184.6 [lb_av] eCW1 ([facility]) Body height 61.75 [in_i] 61.75 [in_i] eCW1 ([facility]) Body mass index (BMI) [Ratio] 34.03 kg/m2 34.03 kg/m2 eCW1 ([facility]) Heart rate 84 /min 84 /min eCW1 ([facility]) Respiratory rate 18 /min 18 /min eCW1 ([facility]ly [facility]) Body temperature 97.1 [degF] 97.1 [degF] eCW1 ( [facility]) Systolic blood pressure 120 mm[Hg] 120 mm[Hg] e CW1 ([facility]) Diastolic blood pressure 74 mm[Hg] 74 mm[Hg] eCW1 ([facility]) ID Date Data Source [id number] 08/16/2020 03:20:59 PM EDT [facility] Name Value Range Interpretation Code Description Data Source(s) WEIGHT RECORDED 184.00 pounds 184.00 pounds [facility] Height 60 Inches 060 Inches [facility] ID Date Data Source [id number] 06/05/2020 01:41:52 PM EST [facility] Name Value Range Interpretation Code Description Data Source(s) WEIGHT RECORDED 184.00 pounds 184.00 pounds [facility] Height 60 Inches 060 Inches [facility] Patient Treatment Plan of Care Planned Activity Planned Date Details Description Data Source (s) Cyanocobalamin 1000 MCG 02/02/2021 12:00:00 AM EDT eCW1 ([facility]) Insulin Glargine 100 UNIT/ML 11/30/2020 12:00:00 AM EDT eCW1 ([facility]) Insulin Glargine 100 UNIT/ML 11/30/2020 12:00:00 AM EDT eCW1 ([facility]) Nystatin 100 UNT/MG Topical Powder 11/23/2020 12:00:00 AM EDT eCW1 ([facility]) Nystatin 100 UNT/MG Topical Powder 11/23/2020 12:00:00 AM EDT eCW1 ([facility]) Nystatin 100 UNT/MG Topical Powder 11/23/2020 12:00:00 AM EDT eCW1 ([facility]) Nystatin 100 UNT/MG Topical Powder 11/23/2020 12:00:00 AM EDT eCW1 ([facility]) Nystatin 100 UNT/MG Topical Powder 11/23/2020 12:00:00 AM EDT eCW1 ([facility]) Nystatin 100 UNT/MG Topical Powder 11/23/2020 12:00:00 AM EDT eCW1 ([facility]) Nystatin 100 UNT/MG Topical Powder 11/23/2020 12:00:00 AM EDT eCW1 ([facility]) Nystatin 100 UNT/MG Topical Powder 11/23/2020 12:00:00 AM EDT eCW1 ([facility]) Nystatin 100 UNT/MG Topical Powder 11/23/2020 12:00:00 AM EDT eCW1 ([facility]) Nystatin 100 UNT/MG Topical Powder 11/23/2020 12:00:00 AM EDT eCW1 ([facility]) Fluconazole 150 MG Oral Tablet 11/21/2020 12:00:00 AM EDT eCW1 ([facility]) Nystatin 100 UNT/MG Topical Powder 11/21/2020 12:00:00 AM EDT eCW1 ([facility]) Fluconazole 150 MG Oral Tablet 11/21/2020 12:00:00 AM EDT eCW1 ([facility]) Nystatin 100 UNT/MG Topical Powder 11/21/2020 12:00:00 AM EDT eCW1 ([facility]) Fluconazole 150 MG Oral Tablet 11/21/2020 12:00:00 AM EDT eCW1 ([facility]) Nystatin 100 UNT/MG Topical Powder 11/21/2020 12:00:00 AM EDT eCW1 ([facility]) Fluconazole 150 MG Oral Tablet 11/21/2020 12:00:00 AM EDT eCW1 ([facility]) Nystatin 100 UNT/MG Topical Powder 11/21/2020 12:00:00 AM EDT eCW1 ([facility]) Fluconazole 150 MG Oral Tablet 11/21/2020 12:00:00 AM EDT eCW1 ([facility]) Nystatin 100 UNT/MG Topical Powder 11/21/2020 12:00:00 AM EDT eCW1 ([facility]) Nystatin 100 UNT/MG Topical Powder 11/21/2020 12:00:00 AM EDT eCW1 ([facility]) Fluconazole 150 MG Oral Tablet 11/21/2020 12:00:00 AM EDT eCW1 ([facility]) Nystatin 100 UNT/MG Topical Powder 11/21/2020 12:00:00 AM EDT eCW1 ([facility]) Fluconazole 150 MG Oral Tablet 11/21/2020 12:00:00 AM EDT eCW1 ([facility]) Nystatin 100 UNT/MG Topical Powder 11/21/2020 12:00:00 AM EDT eCW1 ([facility]) Fluconazole 150 MG Oral Tablet 11/21/2020 12:00:00 AM EDT eCW1 ([facility]) Nystatin 100 UNT/MG Topical Powder 11/21/2020 12:00:00 AM EDT eCW1 ([facility]) Fluconazole 150 MG Oral Tablet 11/21/2020 12:00:00 AM EDT eCW1 ([facility]) Nystatin 100 UNT/MG Topical Powder 11/21/2020 12:00:00 AM EDT eCW1 ([facility]) Fluconazole 150 MG Oral Tablet 11/21/2020 12:00:00 AM EDT eCW1 ([facility]) Fluconazole 150 MG Oral Tablet 11/21/2020 12:00:00 AM EDT eCW1 ([facility]) Nystatin 100 UNT/MG Topical Powder 11/21/2020 12:00:00 AM EDT eCW1 ([facility]) Fluconazole 150 MG Oral Tablet 11/21/2020 12:00:00 AM EDT eCW1 ([facility]) Nystatin 100 UNT/MG Topical Powder 11/21/2020 12:00:00 AM EDT eCW1 ([facility]) Fluconazole 150 MG Oral Tablet 11/21/2020 12:00:00 AM EDT eCW1 ([facility]) Nystatin 100 UNT/MG Topical Powder 11/21/2020 12:00:00 AM EDT eCW1 ([facility]) Test Strips - 11/15/2020 12:00:00 AM EDT eCW1 ([facility]) Test Strips - 11/15/2020 12:00:00 AM EDT eCW1 ([facility]) Test Strips - 11/15/2020 12:00:00 AM EDT eCW1 ([facility]) Test Strips - 11/15/2020 12:00:00 AM EDT eCW1 ([facility]) Test Strips - 11/15/2020 12:00:00 AM EDT eCW1 ([facility]) Test Strips - 11/15/2020 12:00:00 AM EDT eCW1 ([facility]) Test Strips - 11/15/2020 12:00:00 AM EDT eCW1 ([facility]) Test Strips - 11/15/2020 12:00:00 AM EDT eCW1 ([facility]) Test Strips - 11/15/2020 12:00:00 AM EDT eCW1 ([facility]) Test Strips - 11/15/2020 12:00:00 AM EDT eCW1 ([facility]) Test Strips - 11/15/2020 12:00:00 AM EDT eCW1 ([facility]) Test Strips - 11/15/2020 12:00:00 AM EDT eCW1 ([facility]) Test Strips - 11/15/2020 12:00:00 AM EDT eCW1 ([facility]) Test Strips - 11/15/2020 12:00:00 AM EDT eCW1 ([facility]) Test Strips - 11/15/2020 12:00:00 AM EDT eCW1 ([facility]) Test Strips - 11/15/2020 12:00:00 AM EDT eCW1 ([facility]) Test Strips - 11/15/2020 12:00:00 AM EDT eCW1 ([facility]) Levothyroxine Sodium 0.025 MG Oral Tablet 11/08/2020 12:00:00 AM ED T eCW1 ([facility]) Famotidine 20 MG Oral Tablet 06/22/2020 12:00:00 AM EST eCW1 ([facility])
[2021-03-16] MEDS ORDERED: NS 1,000 ML IV SCH (17:40)
[2021-03-16] MEDS ORDERED: DEXTROSE 50% 50 ML SYRINGE IV PRN (20:20)
[2021-03-16] MEDS ORDERED: GLUCOSE 4GM CHEW TABLET PO PRN (20:20)
[2021-03-16] MEDS ORDERED: GLUCAGON INJ 1MG VIAL SC PRN (20:20)
--- NOTE | 2021-03-16 20:24 | HPEPDOC ---
[facility] Medical History & Physical Date of Admission Mar 16, 2021 Date of Service: Mar 16, 2021 Attending Physician: AVIS BAH MD History and Physical CHIEF COMPLAINT: [66 y/o female c/o profound weakness, inability to ambulate] HISTORY OF PRESENT ILLNESS: [This is a 66 y/o female with a pmh of htn, hld, copd, paulino no on cpap, gerd, gerd, dm2, asplenia, hypothyroidism, depression/anxiety who reports to our ED on 03/16 with a cc of profound weakness x1 day. Patient was discharged from our hospital yesterday 03/15 after a 4 day stay for metabolic encephalopathy i/s/o sepsis 2/2 uti. Patient states that she feels as though she has not fully recovered and is still profoundly weak. Shavonnerosa nt states that overnight, she attempted to get up out of bed to use the restroom, however was unable, became dizzy, and fell back onto her mattress. Patient states that her home health aid had to help her in ambulating. Patient states that she did not pass out, she did not hit the floor. The patient does complain of some diarrhea and states she has been moving her bowels 3-4 times a day for some time and has been "living on pepto bismol." Patient has not noticed any bloody diarrhea. Patient states that other than her profound weakness, she feels mostly find and denies any fevers, chills, uri sx, chest pain, palpitations, sob, wheezing, cough, abd pain, n/v, constipation, paresthesias, room spinning dizziness.] PAST MEDICAL HISTORY: 1. [See HPI PAST SURGICAL HISTORY: 1. Splenectomy 2. Right knee replacement 3. D&C and uterine polypectomy 4. Complete hysterectomy with bilateral salpingo-oophorectomy 5. Right total hip arthroplasty 6. Carpal tunnel release 7. Colonoscopy and upper endoscopy 8. Left total hip arthroplasty SOCIAL HISTORY: Lives alone in her apartment with visiting aid 3 times per week. She does not have to climb stairs to get to or around her apartment. Tobacco use:[Former] ETOH: [Denies] Illicit drug use: [Denies] FAMILY HISTORY: Father: [CAD] Mother: [DM] ALLERGIES: Please see below. REVIEW OF SYSTEMS: CONSTITUTIONAL: [Denies fevers, chills]. HEENT: [Denies uri sx]. CARDIOVASCULAR: [Denies chest pain, palpitations]. RESPIRATORY: [Denies sob, wheezing, cough]. GASTROINTESTINAL: [See HPI]. GENITOURINARY: [Denies dysuria]. SKIN: [Denies rash, wounds]. MUSCULOSKELETAL: [Admits to some back pain. Denies acute joint pain]. NEUROLOGICAL: [Denies syncope, paresthesias]. PSYCHIATRIC: [Hx of anxiety/depression]. ENDOCRINE: [Hx of IDDM2]. HEMATOLOGIC/LYMPHATIC: [Denies hx of vte]. HOME MEDICATIONS: Please see below. PHYSICAL EXAMINATION: VITAL SIGNS: Please see below. GENERAL APPEARANCE: [This is a 66 y/o female who appears her stated age. She is not in any acute respiratory distress]. HEENT: [No mass or lesion. EOMI. No scleral icterus. Nares patent. Oral mucosa moist]. CARDIOVASCULAR: [Regular rate, rhythm. No murmurs, rubs, gallops]. LUNGS: [Good air flow b/l. No wheezing, rales, rhonchi]. ABDOMEN: [Soft, nontender]. MUSCULOSKELETAL: [No joint deformity noted]. EXTREMITIES: [Trace pedal edema appreciated. No overlying skin changes. Pulses intact]. NEUROLOGICAL: [Speech clear. A+Ox3. No focal deficits]. PSYCHIATRIC: [Mood and affect appear appropriate]. LABORATORY DATA: See below. IMAGING: [CXR: FINDINGS: The technique utilized in obtaining the radiograph has magnified the cardiac silhouette and accentuated the interstitial markings. There is mild cardiomegaly accentuated by technique status quo. Lung rodriguez are stable. No acute patchy parenchymal opacities or pleural effusions have developed. The osseous structures are stable. IMPRESSION: Stable chest] MICROBIOLOGY: Please see below. ASSESSMENT: [This is a 66 y/o female with a pmh of htn, hld, copd, paulino no on cpap, gerd, gerd, dm2, asplenia, hypothyroidism, depression/anxiety who reports to our ED on 03/16 with a cc of profound weakness x1 day. Patient was discharged from our hospital yesterday 03/15 after a 4 day stay for metabolic e ncephalopathy i/s/o sepsis 2/2 uti. Patient states that she feels as though she has not fully recovered and is still profoundly weak. Workup performed in the ED only notable for white count of 18.8]. . PLAN: 1. [Weakness - Most likely 2/2 to deconditioning - Discussed with patient that it may be a yee decision to consider assisted living situation rather than visiting home health services given her recent debility. Patient agrees and is willing to seek placement to assisted living facility. [employer] supervisor consult placed - PT/OT consults placed - ARU admission screen - admit to med surg under obs 2. Leukocytosis - Infectious workup performed today so far negative - Patient is still on outpatient regimen of levaquin from previous admission, will finish this out - F/u urine cultures, blood cultures, procalcitonin, gi panel - Patient does seem to have some degree of chronic leukocytosis per my chart review 3. DM2 - sliding scale insulin - hypoglycemic protocol 4. COPD - continue at home inhaler 5. GERD - continue famotidine 6. Hypothyroidism - continue synthroid 7. Depression/anxiety - continue trazodone DVT prophylaxis - lovenox]. Vital Signs Vital Signs Date Time Temp Pulse Resp B/P (MAP) Pulse Ox O2 Delivery O2 Flow Rate FiO2 03/16/21 15:04 98.2 76 16 103/50 (67) 100 Room Air Laboratory Data Labs 24H Laboratory Tests 2 03/16/21 15:48: Immature Granulocyte % (Auto) 2.2, Neutrophils (%) (Auto) 82.8H, Lymphocytes (%) (Auto) 5.6L, Monocytes (%) (Auto) 8.5H, Eosinophils (%) (Auto) 0.6, Basophils (%) (Auto) 0.3, Neutrophils # (Auto) 15.6H, Lymphocytes # (Auto) 1.1L, Monocytes # (Auto) 1.6H, Eosinophils # (Auto) 0.1, Basophils # (Auto) 0.1, Nucleated Red Blood Cells % (auto) 0.0, Anion Gap 7L, Glomerular Filtration Rate 46.4, Calcium Level 9.2, Total Bilirubin 0.8, Direct Bilirubin 0.2, Aspartate Amino Transf (AST/SGOT) 31, Alanine Aminotransferase (ALT/SGPT) 40, Alkaline Phosphatase 96, Total Creatine Kinase 330H, Creatine Kinase MB 1.7, Creatine Kinase MB Relative Index 0.52, Troponin I < 0.02, XT-Tma-M-Type Natriuretic Peptide 335H, Total Protein 6.5, Albumin 3.0L, Albumin/Globulin Ratio 0.9L 03/16/21 18:05: Lactic Acid Level 1.1 CBC/BMP Laboratory Tests 03/16/21 15:48 Microbiology Microbiology 03/16/21 Respiratory Virus Panel (PCR) (SUKUMAR), Received Pending 03/16/21 Blood Culture, Received Pending 03/16/21 Blood Culture, Received Pending Home Medications Scheduled Amlodipine Besylate (Amlodipine Besylate) 10 Mg Tablet, 10 MG PO DAILY Brimonidine Tartrate/Timolol (Combigan 0.2%-0.5% Eye Drops) 5 Ml Drops, 1 DROP OU BID Cyanocobalamin (Vitamin B-12) (B-12) 1,000 Mcg Tablet, 1 TAB PO DAILY Empagliflozin (Jardiance) 25 Mg Tablet, 25 MG PO DAILY Insulin Aspart (Novolog) 100 Unit/1 Ml Cartridge, 1 DOSE SC AC PER SLIDING SCALE Insulin Glargine,Hum.rec.anlog (Lantus Solostar) 100 Unit/1 Ml Insuln.pen, 12 UNITS SC DAILY Levofloxacin (Levofloxacin) 750 Mg Tablet, 750 MG PO DAILY@06 Levothyroxine Sodium (Levothyroxine Sodium) 25 Mcg Tablet, 12.5 MCG PO DAILY TAKES WITH 200 MCG TAB FOR 212.5 MCG TOTAL DOSE Levothyroxine Sodium (Levothyroxine) 200 Mcg Capsule, 200 MCG PO DAILY TAKES WITH 12.5 MCG HALF-TAB FOR 212.5 MCG TOTAL DOSE Meloxicam (Meloxicam) 7.5 Mg Tablet, 7.5 MG PO DAILY Mirabegron (Myrbetriq) 25 Mg Tab.er.24h, 25 MG PO DAILY Scheduled PRN Acetaminophen (Acetaminophen) 325 Mg Tablet, 325 MG PO DAILY PRN for PAIN LEVEL 1-4 Famotidine (Famotidine) 20 Mg Tablet, 20 MG PO QHS PRN for HEARTBURN Ipratropium/Albuterol Sulfate (Combivent Respimat 20-100 Mcg) 4 Gm Mist.inhal, 1 PUFF INH QID PRN for SHORTNESS OF BREATH Trazodone HCl (Trazodone HCl) 50 Mg Tablet, 25 MG PO QHS PRN for INSOMNIA Miscellaneous Medications [comments] MED LIST MADE WITH EXTERNAL MED HISTORY WELL LAST DISCHARGE Allergies Coded Allergies: hydrocodone (Unverified Adverse Reaction, Mild, "I just act crazy", 01/31/21) oxycodone (Verified Adverse Reaction, Mild, confusion, 11/04/20) morphine (Verified Adverse Reaction, Unknown, 'I GET FORGETFUL, 03/16/21) A-FIB/CHADSVASC A-FIB History Current/History of A-Fib/PAF?: No Current PO Anticoag Therapy: No ALBERT GARIBAY Mar 16, 2021 20:24
--- OUTSIDE RECORDS SUMMARY | 2021-03-16 20:34 | CCD ---
Author Author [facility] Organization [facility] Address Unknown Phone Unavailable Support Name Relationship Address Phone MARIOFATOU OHARA Next Of Kin Unknown MARY ANN GARZA Next Of Kin Unknown Unavailable REWIS, FOR ) ANTONIO([place] [address] RE Next Of Kin Unknown Unavailable RETIRED Next Of Kin Unknown Unavailable ANTONIO [place] [address] Raz Maldonado MD Next Of Kin [address] [place] [address] Loraine Meyers Next Of Kin [address] [place] [address] Gricelda Castillo Next Of Kin [address] [place] [address] Jose Sullivan Next Of Kin [address] [place] [address] Caity Yepez Next Of Kin [address] [place] [address] "" Next Of Kin [address] [place] [address] [employer] [place] [address] DISABLED Next Of Kin Unknown MARY ANN ALAMO Next Of Kin [address] [place] [address] RAJNI FRANCOIS Next Of Kin [address] [place], [place] [id number] UN Next Of Kin Unknown Unavailable EMMA SANCHEZ Next Of Kin [address] [address] REWIS, FOR ) ANTONIO([place] [address] Unavailable Holly ALAMO [address] [place] [address] Unavailable Care Team Providers Care Host Coordinator Name Role Phone NO, PCP Unavailable [...] is protected by Article 27-F of the [facility] Public Health law. If you continue you may have access to information: Regarding HIV / AIDS; Provided by facilities licensed or operated by the [facility] Office of Mental Health; or Provided by the [facility] Office for People With Developmental Disabilities. If such information is present, then the following [facility] mandated warning applies: This information has [...] law may result in a fine or correction sentence or both. A general authorization for the release of medical or other information is NOT sufficient authorization for further disc losure. Allergies and Adverse Reactions Type Description Substance Reaction Status Data Source(s ) Propensity to adverse reactions Morphine Sulfate Morphine Confusion Active eCW1 ([facility]) No Known Environmental Allergies No Known Environmental Al lergies [facility] No Known Food Allergies No Known Food Allergies [facility] Propensity to adverse reactions OXYCODONE HCL-ACETAMINOPHEN OXYCODONE HCL-ACETAMINOPHEN UNKNOWN [facility] Family History Family Member Name Family Member Gender Family Member Status Date o f Status Description Data Source(s) Unknown Female Problem MEDENT ([facility]) Unknown Female Problem MEDENT ([facility]) Encounters Encounter Providers Location Date Indications Data Source(s ) [place] [address] [facility] [address] 03/06/2021 12:00:00 AM EDT eCW1 ([facility]) [place] [address] [facility] [address] 02/13/2021 12:00:00 AM EDT eCW1 ([facility]) [place] [address] [facility] [address] 02/05/2021 12:00:00 AM EDT eCW1 ([facility]) [place] [address] [facility] [address] 01/31/2021 12:00:00 AM EDT eCW1 ([facility]) OFFICE OUTPATIENT VISIT 15 MINUTES Attender: JIGAR GATICA Phys ical Therapy 12/14/2020 02:00:00 PM EDT MEDENT ([facility]) Unknown [address] [facility] [address] 12/11/2020 12:00:00 AM EDT eCW1 ([facility]) Outpatient [address] [facility] [address] 11/28/2020 12:00:00 AM EDT eCW1 ([facility]) [place] [address] [facility] [address] 11/24/2020 12:00:00 AM EDT eCW1 ([facility]) [place] [address] [facility] [address] 11/24/2020 12:00:00 AM EDT eCW1 ([facility]) Unknown [address] [facility] [address] 11/24/2020 12:00:00 AM EDT eCW1 ([facility]) Unknown [address] [facility] [address] 11/24/2020 12:00:00 AM EDT eCW1 ([facility]) Unknown [address] [facility] [address] 11/24/2020 12:00:00 AM EDT eCW1 ([facility]) Unknown [address] [facility] [address] 11/24/2020 12:00:00 AM EDT eCW1 ([facility]) Unknown [address] [facility] [address] 11/23/2020 12:00:00 AM EDT eCW1 ([facility]) Unknown [address] [facility] [address] 11/23/2020 12:00:00 AM EDT eCW1 ([facility]) Unknown [address] [facility] [address] 11/22/2020 12:00:00 AM EDT eCW1 ([facility]) Unknown [address] [facility] [address] 11/22/2020 12:00:00 AM EDT eCW1 ([facility]) Unknown [address] [facility] [address] 11/21/2020 12:00:00 AM EDT eCW1 ([facility]) Unknown [address] [facility] [address] 11/20/2020 12:00:00 AM EDT eCW1 ([facility]) Unknown [address] [facility] [address] 11/17/2020 12:00:00 AM EDT eCW1 ([facility]) Unknown [address] [facility] [address] 11/15/2020 12:00:00 AM EDT eCW1 ([facility]) Unknown [address] [facility] [address] 11/14/2020 12:00:00 AM EDT eCW1 ([facility]) Unknown [address] [facility] [address] 11/14/2020 12:00:00 AM EDT eCW1 ([facility]) Unknown [address] [facility] [address] 11/13/2020 12:00:00 AM EDT eCW1 ([facility]) Outpatient [address] [facility] [address] 11/09/2020 12:00:00 AM EDT [facility] [place] [address] [facility] [address] 10/27/2020 12:00:00 AM EDT eCW1 ([facility]) Outpatient [address] [facility] [address] 10/05/2020 12:00:00 AM EDT eCW1 ([facility]) Outpatient Attender: Norma Asher MDConsultant: PCP NO 07/12/2020 07:15:00 AM EST - 07/12/2020 09:08:00 AM EST [facility] Patient discharged. Unknown [address] [facility] [address] 06/26/2020 12:00:00 AM EST eCW1 ([facility]) Outpatient [address] [facility] [address] 06/22/2020 12:00:00 AM EST eCW1 ([facility]) Unknown [address] [facility] [address] 06/06/2020 12:00:00 AM EST eCW1 ([facility]) Unknown [address] [facility] [address] 06/06/2020 12:00:00 AM EST eCW1 ([facility]) Unknown [address] [facility] [address] 05/26/2020 12:00:00 AM EST eCW1 ([facility]) Outpatient Attender: Norma Asher MDConsultant: PCP NO 05/17/2020 09:00:00 AM EST - 05/17/2020 12:25:00 PM EST [facility] Patient discharged. Unknown [address] [facility] [address] 05/15/2020 12:00:00 AM EST eCW1 ([facility]) Outpatient Attender: Norma Asher MDConsultant: PCP NO 05/10/2020 08:18:02 AM EST - 05/10/2020 09:40:00 AM EST [facility] Patient discharged. Outpatient Attender: CHAN ARAIZA MD [email or web address] 0 12:00:00 AM EDT - 02/04/2020 11:56:35 AM EDT [facility] Immunizations Vaccine Date Status Description Data Source(s) Moderna #2 dose COVID-19(given elsewhere) SARSCOV2 VAC 100MCG/0.5ML IM 08/16/2020 01:15:00 PM EDT completed eCW1 ([facility]) Moderna #2 dose COVID-19(given elsewhere) SARSCOV2 VAC 100MCG/0.5ML IM 08/16/2020 01:15:00 PM EDT completed eCW1 ([facility]) Moderna #2 dose COVID-19(given elsewhere) SARSCOV2 VAC 100MCG/0.5ML IM 08/16/2020 01:15:00 PM EDT completed eCW1 ([facility]) Moderna #2 dose COVID-19(given elsewhere) SARSCOV2 VAC 100MCG/0.5ML IM 08/16/2020 01:15:00 PM EDT completed eCW1 ([facility]) Moderna #2 dose COVID-19(given elsewhere) SARSCOV2 VAC 100MCG/0.5ML IM 08/16/2020 01:15:00 PM EDT completed eCW1 ([facility]) Moderna #2 dose COVID-19(given elsewhere) SARSCOV2 VAC 100MCG/0.5ML IM 08/16/2020 01:15:00 PM EDT completed eCW1 ([facility]) Moderna #2 dose COVID-19(given elsewhere) SARSCOV2 VAC 100MCG/0.5ML IM 08/16/2020 01:15:00 PM EDT completed eCW1 ([facility]) Moderna #2 dose COVID-19(given elsewhere) SARSCOV2 VAC 100MCG/0.5ML IM 08/16/2020 01:15:00 PM EDT completed eCW1 ([facility]) Moderna #2 dose COVID-19(given elsewhere) SARSCOV2 VAC 100MCG/0.5ML IM 08/16/2020 01:15:00 PM EDT completed eCW1 ([facility]) Moderna #2 dose COVID-19(given elsewhere) SARSCOV2 VAC 100MCG/0.5ML IM 08/16/2020 01:15:00 PM EDT completed eCW1 ([facility]) Moderna #2 dose COVID-19(given elsewhere) SARSCOV2 VAC 100MCG/0.5ML IM 08/16/2020 01:15:00 PM EDT completed eCW1 ([facility]) Moderna #2 dose COVID-19(given elsewhere) SARSCOV2 VAC 100MCG/0.5ML IM 08/16/2020 01:15:00 PM EDT completed eCW1 ([facility]) Moderna #2 dose COVID-19(given elsewhere) SARSCOV2 VAC 100MCG/0.5ML IM 08/16/2020 01:15:00 PM EDT completed eCW1 ([facility]) Moderna #2 dose COVID-19(given elsewhere) SARSCOV2 VAC 100MCG/0.5ML IM 08/16/2020 01:15:00 PM EDT completed eCW1 ([facility]) Moderna #2 dose COVID-19(given elsewhere) SARSCOV2 VAC 100MCG/0.5ML IM 08/16/2020 01:15:00 PM EDT completed eCW1 ([facility]) Moderna #2 dose COVID-19(given elsewhere) SARSCOV2 VAC 100MCG/0.5ML IM 08/16/2020 01:15:00 PM EDT completed eCW1 ([facility]) Moderna #2 dose COVID-19(given elsewhere) SARSCOV2 VAC 100MCG/0.5ML IM 08/16/2020 01:15:00 PM EDT completed eCW1 ([facility]) Moderna #2 dose COVID-19(given elsewhere) SARSCOV2 VAC 100MCG/0.5ML IM 08/16/2020 01:15:00 PM EDT completed eCW1 ([facility]) Moderna #2 dose COVID-19(given elsewhere) SARSCOV2 VAC 100MCG/0.5ML IM 08/16/2020 01:15:00 PM EDT completed eCW1 ([facility]) Moderna #2 dose COVID-19(given elsewhere) SARSCOV2 VAC 100MCG/0.5ML IM 08/16/2020 01:15:00 PM EDT completed eCW1 ([facility]) Moderna #2 dose COVID-19(given elsewhere) SARSCOV2 VAC 100MCG/0.5ML IM 08/16/2020 01:15:00 PM EDT completed eCW1 ([facility]) Moderna #2 dose COVID-19(given elsewhere) SARSCOV2 VAC 100MCG/0.5ML IM 08/16/2020 01:15:00 PM EDT completed eCW1 ([facility]) Moderna #2 dose COVID-19 (given elsewhere) SARSCOV2 VA C 100MCG/0.5ML IM 08/16/2020 01:15:00 PM EDT completed eCW1 ([facility]) Moderna #2 dose COVID-19 (given elsewhere) SARSCOV2 VA C 100MCG/0.5ML IM 08/16/2020 01:15:00 PM EDT completed eCW1 ([facility]) Moderna #2 dose COVID-19 (given elsewhere) SARSCOV2 VA C 100MCG/0.5ML IM 08/16/2020 01:15:00 PM EDT completed eCW1 ([facility]) Moderna #2 dose COVID-19(given elsewhere) SARSCOV2 VAC 100MCG/0.5ML IM 08/16/2020 01:15:00 PM EDT completed eCW1 ([facility]) COVID-19 VACCINE Moderna 08/16/2020 12:00:00 AM EDT completed [facility] Vaccine Series Complete: YESThis Data wa s Submitted to [facility] Via [employer]. COVID-19 VACCINE Moderna 07/19/2020 12:00:00 AM EDT completed [facility] Vaccine Series Complete: NOThis Data was Submitted to [facility] Via [employer]. Moderna #1 dose COVID-19(given elsewhere) SARSCOV2 VAC 100MCG/0.5ML IM 07/15/2020 01:14:00 PM EST completed eCW1 ([facility]) Moderna #1 dose COVID-19(given elsewhere) SARSCOV2 VAC 100MCG/0.5ML IM 07/15/2020 01:14:00 PM EST completed eCW1 ([facility]) Moderna #1 dose COVID-19(given elsewhere) SARSCOV2 VAC 100MCG/0.5ML IM 07/15/2020 01:14:00 PM EST completed eCW1 ([facility]) Moderna #1 dose COVID-19(given elsewhere) SARSCOV2 VAC 100MCG/0.5ML IM 07/15/2020 01:14:00 PM EST completed eCW1 ([facility]) Moderna #1 dose COVID-19(given elsewhere) SARSCOV2 VAC 100MCG/0.5ML IM 07/15/2020 01:14:00 PM EST completed eCW1 ([facility]) Moderna #1 dose COVID-19(given elsewhere) SARSCOV2 VAC 100MCG/0.5ML IM 07/15/2020 01:14:00 PM EST completed eCW1 ([facility]) Moderna #1 dose COVID-19(given elsewhere) SARSCOV2 VAC 100MCG/0.5ML IM 07/15/2020 01:14:00 PM EST completed eCW1 ([facility]) Moderna #1 dose COVID-19(given elsewhere) SARSCOV2 VAC 100MCG/0.5ML IM 07/15/2020 01:14:00 PM EST completed eCW1 ([facility]) Moderna #1 dose COVID-19(given elsewhere) SARSCOV2 VAC 100MCG/0.5ML IM 07/15/2020 01:14:00 PM EST completed eCW1 ([facility]) Moderna #1 dose COVID-19(given elsewhere) SARSCOV2 VAC 100MCG/0.5ML IM 07/15/2020 01:14:00 PM EST completed eCW1 ([facility]) Moderna #1 dose COVID-19(given elsewhere) SARSCOV2 VAC 100MCG/0.5ML IM 07/15/2020 01:14:00 PM EST completed eCW1 ([facility]) Moderna #1 dose COVID-19(given elsewhere) SARSCOV2 VAC 100MCG/0.5ML IM 07/15/2020 01:14:00 PM EST completed eCW1 ([facility]) Moderna #1 dose COVID-19(given elsewhere) SARSCOV2 VAC 100MCG/0.5ML IM 07/15/2020 01:14:00 PM EST completed eCW1 ([facility]) Moderna #1 dose COVID-19(given elsewhere) SARSCOV2 VAC 100MCG/0.5ML IM 07/15/2020 01:14:00 PM EST completed eCW1 ([facility]) Moderna #1 dose COVID-19(given elsewhere) SARSCOV2 VAC 100MCG/0.5ML IM 07/15/2020 01:14:00 PM EST completed eCW1 ([facility]) Moderna #1 dose COVID-19(given elsewhere) SARSCOV2 VAC 100MCG/0.5ML IM 07/15/2020 01:14:00 PM EST completed eCW1 ([facility]) Moderna #1 dose COVID-19(given elsewhere) SARSCOV2 VAC 100MCG/0.5ML IM 07/15/2020 01:14:00 PM EST completed eCW1 ([facility]) Moderna #1 dose COVID-19(given elsewhere) SARSCOV2 VAC 100MCG/0.5ML IM 07/15/2020 01:14:00 PM EST completed eCW1 ([facility]) Moderna #1 dose COVID-19(given elsewhere) SARSCOV2 VAC 100MCG/0.5ML IM 07/15/2020 01:14:00 PM EST completed eCW1 ([facility]) Moderna #1 dose COVID-19(given elsewhere) SARSCOV2 VAC 100MCG/0.5ML IM 07/15/2020 01:14:00 PM EST completed eCW1 ([facility]) Moderna #1 dose COVID-19(given elsewhere) SARSCOV2 VAC 100MCG/0.5ML IM 07/15/2020 01:14:00 PM EST completed eCW1 ([facility]) Moderna #1 dose COVID-19(given elsewhere) SARSCOV2 VAC 100MCG/0.5ML IM 07/15/2020 01:14:00 PM EST completed eCW1 ([facility]) Moderna #1 dose COVID-19 (given elsewhere) SARSCOV2 VA C 100MCG/0.5ML IM 07/15/2020 01:14:00 PM EST completed eCW1 ([facility]) Moderna #1 dose COVID-19 (given elsewhere) SARSCOV2 VA C 100MCG/0.5ML IM 07/15/2020 01:14:00 PM EST completed eCW1 ([facility]) Moderna #1 dose COVID-19 (given elsewhere) SARSCOV2 VA C 100MCG/0.5ML IM 07/15/2020 01:14:00 PM EST completed eCW1 ([facility]) Moderna #1 dose COVID-19(given elsewhere) SARSCOV2 VAC 100MCG/0.5ML IM 07/15/2020 01:14:00 PM EST completed eCW1 ([facility]) influenza, recombinant, quadrIvalent,injectable, prese rvative free 01/27/2020 01:54:00 PM EDT completed eCW1 ([facility]) influenza, recombinant, quadrIvalent,injectable, prese rvative free 01/27/2020 01:54:00 PM EDT completed eCW1 ([facility]) influenza, recombinant, quadrIvalent,injectable, prese rvative free 01/27/2020 01:54:00 PM EDT completed eCW1 ([facility]) influenza, recombinant, quadrIvalent,injectable, prese rvative free 01/27/2020 01:54:00 PM EDT completed eCW1 ([facility]) influenza, recombinant, quadrIvalent,injectable, prese rvative free 01/27/2020 01:54:00 PM EDT completed eCW1 ([facility]) influenza, recombinant, quadrIvalent,injectable, prese rvative free 01/27/2020 01:54:00 PM EDT completed eCW1 ([facility]) influenza, recombinant, quadrIvalent,injectable, prese rvative free 01/27/2020 01:54:00 PM EDT completed eCW1 ([facility]) influenza, recombinant, quadrIvalent,injectable, prese rvative free 01/27/2020 01:54:00 PM EDT completed eCW1 ([facility]) influenza, recombinant, quadrIvalent,injectable, prese rvative free 01/27/2020 01:54:00 PM EDT completed eCW1 ([facility]) influenza, recombinant, quadrIvalent,injectable, prese rvative free 01/27/2020 01:54:00 PM EDT completed eCW1 ([facility]) influenza, recombinant, quadrIvalent,injectable, prese rvative free 01/27/2020 01:54:00 PM EDT completed eCW1 ([facility]) influenza, recombinant, quadrIvalent,injectable, prese rvative free 01/27/2020 01:54:00 PM EDT completed eCW1 ([facility]) influenza, recombinant, quadrIvalent,injectable, prese rvative free 01/27/2020 01:54:00 PM EDT completed eCW1 ([facility]) influenza, recombinant, quadrIvalent,injectable, prese rvative free 01/27/2020 01:54:00 PM EDT completed eCW1 ([facility]) influenza, recombinant, quadrIvalent,injectable, prese rvative free 01/27/2020 01:54:00 PM EDT completed eCW1 ([facility]) influenza, recombinant, quadrIvalent,injectable, prese rvative free 01/27/2020 01:54:00 PM EDT completed eCW1 ([facility]) influenza, recombinant, quadrIvalent,injectable, prese rvative free 01/27/2020 01:54:00 PM EDT completed eCW1 ([facility]) influenza, recombinant, quadrIvalent,injectable, prese rvative free 01/27/2020 01:54:00 PM EDT completed eCW1 ([facility]) influenza, recombinant, quadrIvalent,injectable, prese rvative free 01/27/2020 01:54:00 PM EDT completed eCW1 ([facility]) influenza, recombinant, quadrIvalent,injectable, prese rvative free 01/27/2020 01:54:00 PM EDT completed eCW1 ([facility]) influenza, recombinant, quadrIvalent,injectable, prese rvative free 01/27/2020 01:54:00 PM EDT completed eCW1 ([facility]) influenza, recombinant, quadrIvalent,injectable, prese rvative free 01/27/2020 01:54:00 PM EDT completed eCW1 ([facility]) influenza, recombinant, quadrIvalent,injectable, prese rvative free 01/27/2020 01:54:00 PM EDT completed eCW1 ([facility]) influenza, recombinant, quadrIvalent,injectable, prese rvative free 01/27/2020 01:54:00 PM EDT completed eCW1 ([facility]) influenza, recombinant, quadrIvalent,injectable, prese rvative free 01/27/2020 01:54:00 PM EDT completed eCW1 ([facility]) influenza, recombinant, quadrIvalent,injectable, prese rvative free 01/27/2020 01:54:00 PM EDT completed eCW1 ([facility]) influenza, recombinant, quadrIvalent,injectable, prese rvative free 01/27/2020 01:54:00 PM EDT completed eCW1 ([facility]) Medications Medication Brand Name Start Date [...] tablet} active Cyanocobalamin 1000 MCG eCW1 ([facility]) Acetaminophen 325 MG Oral Tablet Acetaminophen 325 MG 2020 12:00:00 AM EDT 1.0 {tablet_as_needed} active A cetaminophen 325 MG eCW1 ([facility]) meloxicam 7.5 MG Oral Tablet Meloxicam 7.5 MG Meloxicam 7.5 MG 02/02/2021 12:00:00 AM EDT 1.0 {tablet} active Me loxicam 7.5 MG eCW1 ([facility]) Cyanocobalamin 1000 MCG UNK 02/02/2021 12:00:00 AM EDT 1.0 { tablet} active Cyanocobalamin 1000 MCG eCW1 ([facility]) 12 HR Acetazolamide 500 MG Extended Rele ase Oral Capsule acetaZOLAMIDE ER 500 MG acetaZOLAMIDE ER 500 MG 02/02/2021 12:00:00 AM EDT 1.0 {capsule} active acetaZOLAMIDE ER 500 MG eCW1 ([facility]) BLOOD-GLUCOSE METER 02/02/2021 12:00:00 AM EDT misc 1 USE DIRECTED USE DIRECTED SOLD: 02/04/2021 Kely Mazariegos s meloxicam 7.5 MG Oral Tablet Meloxicam 7.5 MG Meloxicam 7.5 MG 02/02/2021 12:00:00 AM EDT 1.0 {tablet} active Me loxicam 7.5 MG eCW1 ([facility]) Polymyxin B 02659 UNT/ML / Trimethoprim 1 MG/ML Ophthalmic Solution Polymyxin B- Trimethoprim 36647-3.1 UNIT/ML Polymyxin B-Trimethoprim 07018-2.1 UNIT/ML 02/02/2021 12:00:00 AM EDT active Polymyxin B-Trimethoprim 61419- 0.1 UNIT/ML eCW1 ([facility]) Combivent Respimat 20-100 mcg/act UNK 02/02/2021 12:00:00 AM EDT 1.0 {puff} active Combivent Respimat 20-100 mcg/act eCW1 ([facility]) Cyanocobalamin 1000 MCG UNK 02/02/2021 12:00:00 AM EDT 1.0 { tablet} active Cyanocobalamin 1000 MCG eCW1 ([facility]) Combivent Respimat 20-100 mcg/act UNK 02/02/2021 12:00:00 AM EDT 1.0 {puff} active Combivent Respimat 20-100 mcg/act eCW1 ([facility]) Acetaminophen 325 MG Oral Tablet Acetaminophen 325 MG 2020 12:00:00 AM EDT 1.0 {tablet_as_needed} active A cetaminophen 325 MG eCW1 ([facility]) 12 HR Acetazolamide 500 MG Extended Rele ase Oral Capsule acetaZOLAMIDE ER 500 MG acetaZOLAMIDE ER 500 MG 02/02/2021 12:00:00 AM EDT 1.0 {capsule} active acetaZOLAMIDE ER 500 MG eCW1 ([facility]) 12 HR Acetazolamide 500 MG Extended Rele ase Oral Capsule acetaZOLAMIDE ER 500 MG acetaZOLAMIDE ER 500 MG 02/02/2021 12:00:00 AM EDT 1.0 {capsule} active acetaZOLAMIDE ER 500 MG eCW1 ([facility]) 12 HR Acetazolamide 500 MG Extended Rele ase Oral Capsule acetaZOLAMIDE ER 500 MG acetaZOLAMIDE ER 500 MG 02/02/2021 12:00:00 AM EDT 1.0 {capsule} active acetaZOLAMIDE ER 500 MG eCW1 ([facility]) meloxicam 7.5 MG Oral Tablet Meloxicam 7.5 MG Meloxicam 7.5 MG 02/02/2021 12:00:00 AM EDT 1.0 {tablet} active Me loxicam 7.5 MG eCW1 ([facility]) Polymyxin B 72458 UNT/ML / Trimethoprim 1 MG/ML Ophthalmic Solution Polymyxin B- Trimethoprim 15446-4.1 UNIT/ML Polymyxin B-Trimethoprim 90896-7.1 UNIT/ML 02/02/2021 12:00:00 AM EDT active Polymyxin B-Trimethoprim 14015- 0.1 UNIT/ML eCW1 ([facility]) Polymyxin B 68987 UNT/ML / Trimethoprim 1 MG/ML Ophthalmic Solution 10,000 unit- 1 mg/mL POLYMYXIN B SULF/TRIMETHOPRIM 02/02/2021 12:00:00 AM EDT drops 1 0 INSTILL 1 DROP IN THE RIGHT EYE SIX TIMES DAILY INSTILL 1 DROP IN THE RIGHT EYE SIX TIMES DAILY SOLD: 02/04/2021 Kely cruz Combivent Respimat 20-100 mcg/act UNK 02/02/2021 12:00:00 AM EDT 1.0 {puff} active Combivent Respimat 20-100 mcg/act eCW1 ([facility]) Cyanocobalamin 1000 MCG UNK 02/02/2021 12:00:00 AM EDT 1.0 { tablet} active Cyanocobalamin 1000 MCG eCW1 ([facility]) Polymyxin B 91137 UNT/ML / Trimethoprim 1 MG/ML Ophthalmic Solution Polymyxin B- Trimethoprim 46403-0.1 UNIT/ML Polymyxin B-Trimethoprim 36452-4.1 UNIT/ML 02/02/2021 12:00:00 AM EDT active Polymyxin B-Trimethoprim 81343- 0.1 UNIT/ML eCW1 (Formerly [facility]) Acetaminophen 325 MG Oral Tablet Acetaminophen 325 MG 2020 12:00:00 AM EDT 1.0 {tablet_as_needed} active A cetaminophen 325 MG eCW1 (Formerly [facility]) Combivent Respimat 20-100 mcg/act UNK 02/02/2021 12:00:00 AM EDT 1.0 {puff} active Combivent Respimat 20-100 mcg/act eCW1 (Formerly [facility]) Polymyxin B 15701 UNT/ML / Trimethoprim 1 MG/ML Ophthalmic Solution Polymyxin B- Trimethoprim 11471-9.1 UNIT/ML Polymyxin B-Trimethoprim 49259-0.1 UNIT/ML 02/02/2021 12:00:00 AM EDT active Polymyxin B-Trimethoprim 60034- 0.1 UNIT/ML eCW1 (Formerly [facility]) meloxicam 7.5 MG Oral Tablet Meloxicam 7.5 MG Meloxicam 7.5 MG 02/02/2021 12:00:00 AM EDT 1.0 {tablet} active Me loxicam 7.5 MG eCW1 ([facility]) Acetaminophen 325 MG Oral Tablet Acetaminophen 325 MG 2020 12:00:00 AM EDT 1.0 {tablet_as_needed} active A cetaminophen 325 MG eCW1 ([facility]ly [facility]) meloxicam 7.5 MG Oral Tablet MELOXICAM [...] 12:00:00 AM EDT ORAL active MEDENT ([facility]) 500 mg 12/09/2020 12:00:00 AM EDT capsule, extended relea se 60 TAKE ONE CAPSULE BY MOUTH TWICE A DAY TAKE ONE CAPSULE BY MOUTH TWICE A DAY SOLD: 12/11/2020 [facility] Insulin Glargine 100 UNIT/ML UNK 11/30/2020 12:00:00 AM EDT active Insulin Glargine 100 UNIT/ML eCW1 ([facility]) Insulin Glargine 100 UNIT/ML UNK 11/30/2020 12:00:00 AM EDT active Insulin Glargine 100 UNIT/ML eCW1 ([facility]) Insulin Glargine 100 UNIT/ML UNK 11/30/2020 12:00:00 AM EDT active Insulin Glargine 100 UNIT/ML eCW1 ([facility]) Insulin Glargine 100 UNIT/ML UNK 11/30/2020 12:00:00 AM EDT active Insulin Glargine 100 UNIT/ML eCW1 ([facility]) Insulin Glargine 100 UNIT/ML UNK 11/30/2020 12:00:00 AM EDT active Insulin Glargine 100 UNIT/ML eCW1 ([facility]) 3 ML Insulin Glargine 100 [...] Insulin Glargine 100 UNIT/ML eCW1 ([facility]) Insulin Glargine 100 UNIT/ML UNK 11/30/2020 12:00:00 AM EDT active Insulin Glargine 100 UNIT/ML eCW1 ([facility]) Nystatin 100 UNT/MG Topical Powder Nystatin 864908 UNI T/GM Nystatin 971339 UNIT/GM 11/23/2020 12:00:00 AM EDT 1.0 {application} active Nystatin 485079 UNIT/GM eCW1 ([facility]) Nystatin 100 UNT/MG Topical Powder Nystatin 663183 UNI T/GM Nystatin 458037 UNIT/GM 11/23/2020 12:00:00 AM EDT 1.0 {application} active Nystatin 731734 UNIT/GM eCW1 ([facility]) Nystatin 100 UNT/MG Topical Powder Nystatin 290141 UNI T/GM Nystatin 151419 UNIT/GM 11/23/2020 12:00:00 AM EDT 1.0 {application} active Nystatin 240480 UNIT/GM eCW1 ([facility]) Nystatin 100 UNT/MG Topical Powder Nystatin 368164 UNI T/GM Nystatin 098522 UNIT/GM 11/23/2020 12:00:00 AM EDT 1.0 {application} active Nystatin 346049 UNIT/GM eCW1 ([facility]) Nystatin 100 UNT/MG Topical Powder Nystatin 599908 UNI T/GM Nystatin 727945 UNIT/GM 11/23/2020 12:00:00 AM EDT 1.0 {application} active Nystatin 017313 UNIT/GM eCW1 ([facility]) Nystatin 100 UNT/MG Topical Powder 100,000 [...] Drugs Nystatin 100 UNT/MG Topical Powder Nystatin 676129 UNI T/GM Nystatin 432212 UNIT/GM 11/23/2020 12:00:00 AM EDT 1.0 {application} active Nystatin 413335 UNIT/GM eCW1 ([facility]) Nystatin 100 UNT/MG Topical Powder Nystatin 715604 UNI T/GM Nystatin 102515 UNIT/GM 11/23/2020 12:00:00 AM EDT 1.0 {application} active Nystatin 211082 UNIT/GM eCW1 ([facility]) Nystatin 100 UNT/MG Topical Powder Nystatin 108397 UNI T/GM Nystatin 498882 UNIT/GM 11/23/2020 12:00:00 AM EDT 1.0 {application} active Nystatin 183692 UNIT/GM eCW1 ([facility]) Nystatin 100 UNT/MG Topical Powder Nystatin 577059 UNI T/GM Nystatin 073662 UNIT/GM 11/23/2020 12:00:00 AM EDT 1.0 {application} active Nystatin 455874 UNIT/GM eCW1 ([facility]) Nystatin 100 UNT/MG Topical Powder Nystatin 330004 UNI T/GM Nystatin 010809 UNIT/GM 11/23/2020 12:00:00 AM EDT 1.0 {application} active Nystatin 401748 UNIT/GM eCW1 ([facility]) Nystatin 100 UNT/MG Topical Powder Nystatin 995657 UNI T/GM Nystatin 284664 UNIT/GM 11/23/2020 12:00:00 AM EDT 1.0 {application} active Nystatin 405395 UNIT/GM eCW1 ([facility]) Nystatin 100 UNT/MG Topical Powder Nystatin 673769 UNI T/GM Nystatin 269557 UNIT/GM 11/23/2020 12:00:00 AM EDT 1.0 {application} active Nystatin 117321 UNIT/GM eCW1 ([facility]) Nystatin 100 UNT/MG Topical Powder Nystatin 104262 UNI T/GM Nystatin 564630 UNIT/GM 11/23/2020 12:00:00 AM EDT 1.0 {application} active Nystatin 872021 UNIT/GM eCW1 ([facility]) 150 mg 11/21/2020 12:00:00 AM EDT [...] 1.0 {tablet} active Fluconazole 150 MG eCW1 ([facility]) Nystatin 100 UNT/MG Topical Powder Nystatin 992043 UNI T/GM Nystatin 788420 UNIT/GM 11/21/2020 12:00:00 AM EDT 1.0 {application} active Nystatin 094836 UNIT/GM eCW1 ([facility]) Nystatin 100 UNT/MG Topical Powder Nystatin 494712 UNI T/GM Nystatin 280068 UNIT/GM 11/21/2020 12:00:00 AM EDT 1.0 {application} active Nystatin 460374 UNIT/GM eCW1 ([facility]) Nystatin 100 UNT/MG Topical Powder Nystatin 651334 UNI T/GM Nystatin 304432 UNIT/GM 11/21/2020 12:00:00 AM EDT 1.0 {application} active Nystatin 848189 UNIT/GM eCW1 ([facility]) Nystatin 100 UNT/MG Topical Powder Nystatin 626305 UNI T/GM Nystatin 051648 UNIT/GM 11/21/2020 12:00:00 AM EDT 1.0 {application} active Nystatin 152821 UNIT/GM eCW1 ([facility]) Fluconazole 150 MG Oral Tablet Fluconazole 150 MG 11/21/2020 12:00: 00 AM EDT 1.0 {tablet} active Fluconazole 150 MG eCW1 ([facility]) Nystatin 100 UNT/MG Topical Powder Nystatin 369810 UNI T/GM Nystatin 598245 UNIT/GM 11/21/2020 12:00:00 AM EDT 1.0 {application} active Nystatin 169632 UNIT/GM eCW1 ([facility]) Nystatin 100 UNT/MG Topical Powder Nystatin 839173 UNI T/GM Nystatin 958724 UNIT/GM 11/21/2020 12:00:00 AM EDT 1.0 {application} active Nystatin 518644 UNIT/GM eCW1 ([facility]) Fluconazole 150 MG Oral Tablet Fluconazole 150 MG 11/21/2020 12:00: 00 AM EDT 1.0 {tablet} active Fluconazole 150 MG eCW1 ([facility]) Nystatin 100 UNT/MG Topical Powder Nystatin 437740 UNI T/GM Nystatin 234736 UNIT/GM 11/21/2020 12:00:00 AM EDT 1.0 {application} active Nystatin 643880 UNIT/GM eCW1 ([facility]) Fluconazole 150 MG Oral Tablet Fluconazole 150 MG 11/21/2020 12:00: 00 AM EDT 1.0 {tablet} active Fluconazole 150 MG eCW1 ([facility]) Fluconazole 150 MG Oral Tablet Fluconazole 150 MG 11/21/2020 12:00: 00 AM EDT 1.0 {tablet} active Fluconazole 150 MG eCW1 ([facility]) Fluconazole 150 MG Oral Tablet Fluconazole 150 MG 11/21/2020 12:00: 00 AM EDT 1.0 {tablet} active Fluconazole 150 MG eCW1 ([facility]) Nystatin 100 UNT/MG Topical Powder Nystatin 649782 UNI T/GM Nystatin 296316 UNIT/GM 11/21/2020 12:00:00 AM EDT 1.0 {application} active Nystatin 700228 UNIT/GM eCW1 ([facility]) Fluconazole 150 MG Oral Tablet Fluconazole 150 MG 11/21/2020 12:00: 00 AM EDT 1.0 {tablet} active Fluconazole 150 MG eCW1 ([facility]) Fluconazole 150 MG Oral Tablet Fluconazole 150 MG 11/21/2020 12:00: 00 AM EDT 1.0 {tablet} active Fluconazole 150 MG eCW1 ([facility]) BLOOD-GLUCOSE METER 11/21/2020 12:00:00 AM EDT mis 1 USE DAILY TO TEST BLOOD GLUCOSE USE DAILY TO TEST BLOOD GLUCOSE SOLD: 11/21/2020 [facility] Fluconazole 150 MG Oral Tablet Fluconazole 150 MG 11/21/2020 12:00: 00 AM EDT 1.0 {tablet} active Fluconazole 150 MG eCW1 ([facility]) Nystatin 100 UNT/MG Topical Powder Nystatin 744345 UNI T/GM Nystatin 206570 UNIT/GM 11/21/2020 12:00:00 AM EDT 1.0 {application} active Nystatin 372178 UNIT/GM eCW1 ([facility]) Nystatin 100 UNT/MG Topical Powder Nystatin 526873 UNI T/GM Nystatin 841007 UNIT/GM 11/21/2020 12:00:00 AM EDT 1.0 {application} active Nystatin 070628 UNIT/GM eCW1 ([facility]) Fluconazole 150 MG Oral Tablet Fluconazole 150 MG 11/21/2020 12:00: 00 AM EDT 1.0 {tablet} active Fluconazole 150 MG eCW1 ([facility]) Fluconazole 150 MG Oral Tablet Fluconazole 150 MG 11/21/2020 12:00: 00 AM EDT 1.0 {tablet} active Fluconazole 150 MG eCW1 ([facility]) Fluconazole 150 MG Oral Tablet Fluconazole 150 MG 11/21/2020 12:00: 00 AM EDT 1.0 {tablet} active Fluconazole 150 MG eCW1 ([facility]) Nystatin 100 UNT/MG Topical Powder Nystatin 775686 UNI T/GM Nystatin 034970 UNIT/GM 11/21/2020 12:00:00 AM EDT 1.0 {application} active Nystatin 597486 UNIT/GM eCW1 ([facility]) Nystatin 100 UNT/MG Topical Powder Nystatin 454907 UNI T/GM Nystatin 440375 UNIT/GM 11/21/2020 12:00:00 AM EDT 1.0 {application} active Nystatin 422783 UNIT/GM eCW1 ([facility]) Fluconazole 150 MG Oral Tablet Fluconazole 150 MG 11/21/2020 12:00: 00 AM EDT 1.0 {tablet} active Fluconazole 150 MG eCW1 ([facility]) Nystatin 100 UNT/MG Topical Powder Nystatin 062046 UNI T/GM Nystatin 079279 UNIT/GM 11/21/2020 12:00:00 AM EDT 1.0 {application} active Nystatin 937161 UNIT/GM eCW1 ([facility]) Nystatin 100 UNT/MG Topical Powder Nystatin 489554 UNI T/GM Nystatin 505050 UNIT/GM 11/21/2020 12:00:00 AM EDT 1.0 {application} active Nystatin 517557 UNIT/GM eCW1 ([facility]) Fluconazole 150 MG Oral Tablet Fluconazole 150 MG 11/21/2020 12:00: 00 AM EDT 1.0 {tablet} active Fluconazole 150 MG eCW1 ([facility]) Nystatin 100 UNT/MG Topical Powder Nystatin 328041 UNI T/GM Nystatin 986574 UNIT/GM 11/21/2020 12:00:00 AM EDT 1.0 {application} active Nystatin 406549 UNIT/GM eCW1 ([facility]) Fluconazole 150 MG Oral Tablet Fluconazole 150 MG 11/21/2020 12:00: 00 AM EDT 1.0 {tablet} active Fluconazole 150 MG eCW1 ([facility]) Nystatin 100 UNT/MG Topical Powder Nystatin 342702 UNI T/GM Nystatin 691056 UNIT/GM 11/21/2020 12:00:00 AM EDT 1.0 {application} active Nystatin 353176 UNIT/GM eCW1 ([facility]) Fluconazole 150 MG Oral Tablet Fluconazole 150 MG 11/21/2020 12:00: 00 AM EDT 1.0 {tablet} active Fluconazole 150 MG eCW1 ([facility]) Test Strips - UNK 11/15/2020 12:00:00 AM EDT acti ve Test Strips - eCW1 ([facility]) Test Strips - UNK 11/15/2020 12:00:00 AM EDT acti ve Test Strips - eCW1 ([facility]) Test Strips - UNK 11/15/2020 12:00:00 AM EDT acti ve Test Strips - eCW1 ([facility]) Test Strips - UNK 11/15/2020 12:00:00 AM EDT acti ve Test Strips - eCW1 ([facility]) Test Strips - K 11/15/2020 12:00:00 AM EDT acti ve Test Strips - eCW1 ([facility]) Test Strips - K 11/15/2020 12:00:00 AM EDT acti ve Test Strips - eCW1 ([facility]) Test Strips - [facility] 11/15/2020 12:00:00 AM EDT acti ve Test Strips - eCW1 ([facility]) Test Strips - [facility] 11/15/2020 12:00:00 AM EDT acti ve Test Strips - eCW1 ([facility]) Test Strips - [facility] 11/15/2020 12:00:00 AM EDT acti ve Test Strips - eCW1 ([facility]) Test Strips - [facility] 11/15/2020 12:00:00 AM EDT acti ve Test Strips - eCW1 ([facility]) Test Strips - [facility] 11/15/2020 12:00:00 AM EDT acti ve Test Strips - eCW1 ([facility]) Test Strips - [facility] 11/15/2020 12:00:00 AM EDT acti ve Test Strips - eCW1 ([facility]) Test Strips - [facility] 11/15/2020 12:00:00 AM EDT acti ve Test Strips - eCW1 ([facility]) Test Strips - [facility] 11/15/2020 12:00:00 AM EDT acti ve Test Strips - eCW1 ([facility]) Test Strips - [facility] 11/15/2020 12:00:00 AM EDT acti ve Test Strips - eCW1 ([facility]) Test Strips - [facility] 11/15/2020 12:00:00 AM EDT acti ve Test Strips - eCW1 ([facility]) Test Strips - [facility] 11/15/2020 12:00:00 AM EDT acti ve Test Strips - eCW1 ([facility]) Test Strips - [facility] 11/15/2020 12:00:00 AM EDT acti ve Test Strips - eCW1 ([facility]) Test Strips - UNK 11/15/2020 12:00:00 AM EDT acti ve Test Strips - eCW1 ([facility]) Test Strips - UNK 11/15/2020 12:00:00 AM EDT acti ve Test Strips - eCW1 ([facility]) Test Strips - UNK 11/15/2020 12:00:00 AM EDT acti ve Test Strips - eCW1 ([facility]) Test Strips - UNK 11/15/2020 12:00:00 AM EDT acti ve Test Strips - eCW1 ([facility]) Test Strips - K 11/15/2020 12:00:00 AM EDT acti ve Test Strips - eCW1 ([facility]) Test Strips - K 11/15/2020 12:00:00 AM EDT acti ve Test Strips - eCW1 ([facility]) 25 mcg 11/09/2020 12:00:00 AM EDT tablet 15 TAKE ONE-HALF TABLET BY MOUTH EVERY MORNING ON AN EMPTY STOMACH TAKE ONE-HALF TABLET BY MOUTH EVERY MORN ING ON AN EMPTY STOMACH SOLD: 11/11/2020 [facility] Levothyroxine Sodium 0.025 MG Oral Tablet Levothyroxin e Sodium 25 MCG Levothyroxine Sodium 25 MCG 11/08/2020 12:00:00 AM EDT active Levothyroxine Sodium 25 MCG eCW1 ([facility]) Levothyroxine Sodium 0.025 MG Oral Tablet Levothyroxin e Sodium 25 MCG Levothyroxine Sodium 25 MCG 11/08/2020 12:00:00 AM EDT active Levothyroxine Sodium 25 MCG eCW1 ([facility]) Levothyroxine Sodium 0.025 MG Oral Tablet Levothyroxin e Sodium 25 MCG Levothyroxine Sodium 25 MCG 11/08/2020 12:00:00 AM EDT active Levothyroxine Sodium 25 MCG eCW1 ([facility]) Levothyroxine Sodium 0.025 MG Oral Tablet Levothyroxin e Sodium 25 MCG Levothyroxine Sodium 25 MCG 11/08/2020 12:00:00 AM EDT active Levothyroxine Sodium 25 MCG eCW1 ([facility]) Levothyroxine Sodium 0.025 MG Oral Tablet Levothyroxin e Sodium 25 MCG Levothyroxine Sodium 25 MCG 11/08/2020 12:00:00 AM EDT active Levothyroxine Sodium 25 MCG eCW1 ([facility]) Levothyroxine Sodium 0.025 MG Oral Tablet Levothyroxin e Sodium 25 MCG Levothyroxine Sodium 25 MCG 11/08/2020 12:00:00 AM EDT active Levothyroxine Sodium 25 MCG eCW1 ([facility]) Levothyroxine Sodium 0.025 MG Oral Tablet Levothyroxin e Sodium 25 MCG Levothyroxine Sodium 25 MCG 11/08/2020 12:00:00 AM EDT active Levothyroxine Sodium 25 MCG eCW1 ([facility]) Levothyroxine Sodium 0.025 MG Oral Tablet Levothyroxin e Sodium 25 MCG Levothyroxine Sodium 25 MCG 11/08/2020 12:00:00 AM EDT active Levothyroxine Sodium 25 MCG eCW1 ([facility]) Levothyroxine Sodium 0.025 MG Oral Tablet Levothyroxin e Sodium 25 MCG Levothyroxine Sodium 25 MCG 11/08/2020 12:00:00 AM EDT active Levothyroxine Sodium 25 MCG eCW1 ([facility]) Levothyroxine Sodium 0.025 MG Oral Tablet Levothyroxin e Sodium 25 MCG Levothyroxine Sodium 25 MCG 11/08/2020 12:00:00 AM EDT active Levothyroxine Sodium 25 MCG eCW1 ([facility]) Levothyroxine Sodium 0.025 MG Oral Tablet Levothyroxin e Sodium 25 MCG Levothyroxine Sodium 25 MCG 11/08/2020 12:00:00 AM EDT active Levothyroxine Sodium 25 MCG eCW1 ([facility]) Levothyroxine Sodium 0.025 MG Oral Tablet Levothyroxin e Sodium 25 MCG Levothyroxine Sodium 25 MCG 11/08/2020 12:00:00 AM EDT active Levothyroxine Sodium 25 MCG eCW1 ([facility]) Levothyroxine Sodium 0.025 MG Oral Tablet Levothyroxin e Sodium 25 MCG Levothyroxine Sodium 25 MCG 11/08/2020 12:00:00 AM EDT active Levothyroxine Sodium 25 MCG eCW1 ([facility]) Levothyroxine Sodium 0.025 MG Oral Tablet Levothyroxin e Sodium 25 MCG Levothyroxine Sodium 25 MCG 11/08/2020 12:00:00 AM EDT active Levothyroxine Sodium 25 MCG eCW1 ([facility]) Levothyroxine Sodium 0.025 MG Oral Tablet Levothyroxin e Sodium 25 MCG Levothyroxine Sodium 25 MCG 11/08/2020 12:00:00 AM EDT active Levothyroxine Sodium 25 MCG eCW1 ([facility]) Levothyroxine Sodium 0.025 MG Oral Tablet Levothyroxin e Sodium 25 MCG Levothyroxine Sodium 25 MCG 11/08/2020 12:00:00 AM EDT active Levothyroxine Sodium 25 MCG eCW1 ([facility]) Levothyroxine Sodium 0.025 MG Oral Tablet Levothyroxin e Sodium 25 MCG Levothyroxine Sodium 25 MCG 11/08/2020 12:00:00 AM EDT active Levothyroxine Sodium 25 MCG eCW1 ([facility]) Levothyroxine Sodium 0.025 MG Oral Tablet Levothyroxin e Sodium 25 MCG Levothyroxine Sodium 25 MCG 11/08/2020 12:00:00 AM EDT active Levothyroxine Sodium 25 MCG eCW1 ([facility]) Levothyroxine Sodium 0.025 MG Oral Tablet Levothyroxin e Sodium 25 MCG Levothyroxine Sodium 25 MCG 11/08/2020 12:00:00 AM EDT active Levothyroxine Sodium 25 MCG eCW1 ([facility]) Levothyroxine Sodium 0.025 MG Oral Tablet Levothyroxin e Sodium 25 MCG Levothyroxine Sodium 25 MCG 11/08/2020 12:00:00 AM EDT active Levothyroxine Sodium 25 MCG eCW1 ([facility]) Levothyroxine Sodium 0.025 MG Oral Tablet Levothyroxin e Sodium 25 MCG Levothyroxine Sodium 25 MCG 11/08/2020 12:00:00 AM EDT active Levothyroxine Sodium 25 MCG eCW1 ([facility]) Levothyroxine Sodium 0.025 MG Oral Tablet Levothyroxin e Sodium 25 MCG Levothyroxine Sodium 25 MCG 11/08/2020 12:00:00 AM EDT active Levothyroxine Sodium 25 MCG eCW1 ([facility]) Levothyroxine Sodium 0.025 MG Oral Tablet Levothyroxin e Sodium 25 MCG Levothyroxine Sodium 25 MCG 11/08/2020 12:00:00 AM EDT active Levothyroxine Sodium 25 MCG eCW1 ([facility]) Levothyroxine Sodium 0.025 MG Oral Tablet Levothyroxin e Sodium 25 MCG Levothyroxine Sodium 25 MCG 11/08/2020 12:00:00 AM EDT active Levothyroxine Sodium 25 MCG eCW1 ([facility]) Levothyroxine Sodium 0.025 MG Oral Tablet Levothyroxin e Sodium 25 MCG Levothyroxine Sodium 25 MCG 11/08/2020 12:00:00 AM EDT active Levothyroxine Sodium 25 MCG eCW1 ([facility]) Levothyroxine Sodium 0.025 MG Oral Tablet Levothyroxin e Sodium 25 MCG Levothyroxine Sodium 25 MCG 11/08/2020 12:00:00 AM EDT active Levothyroxine Sodium 25 MCG eCW1 ([facility]) NITROFURANTOIN, MACROCRYSTALS 25 MG / Ni [...] {tablet_at_bedtime_as_needed} active Fa motidine 20 MG W1 ([facility]) Famotidine 20 MG Oral Tablet Famotidine 20 MG 06/22/2020 12:00:00 A M EST 1.0 {tablet_at_bedtime_as_needed} active Fa motidine 20 MG eCW1 ([facility]) Famotidine 20 MG Oral Tablet Famotidine 20 MG 06/22/2020 12:00:00 A M EST 1.0 {tablet_at_bedtime_as_needed} active Fa motidine 20 MG eCW1 ([facility]) Famotidine 20 MG Oral Tablet Famotidine 20 MG 06/22/2020 12:00:00 A M EST 1.0 {tablet_at_bedtime_as_needed} active Fa motidine 20 MG eCW1 ([facility]) Famotidine 20 MG Oral Tablet Famotidine 20 MG 06/22/2020 12:00:00 A M EST 1.0 {tablet_at_bedtime_as_needed} active Fa motidine 20 MG eCW1 ([facility]) Famotidine 20 MG Oral Tablet Famotidine 20 MG 06/22/2020 12:00:00 A M EST 1.0 {tablet_at_bedtime_as_needed} active Fa motidine 20 MG eCW1 ([facility]) Famotidine 20 MG Oral Tablet Famotidine 20 MG 06/22/2020 12:00:00 A M EST 1.0 {tablet_at_bedtime_as_needed} active Fa motidine 20 MG eCW1 ([facility]) Famotidine 20 MG Oral Tablet Famotidine 20 MG 06/22/2020 12:00:00 A M EST 1.0 {tablet_at_bedtime_as_needed} active Fa motidine 20 MG eCW1 ([facility]) Famotidine 20 MG Oral Tablet Famotidine 20 MG 06/22/2020 12:00:00 A M EST 1.0 {tablet_at_bedtime_as_needed} active Fa motidine 20 MG eCW1 ([facility]) Famotidine 20 MG Oral Tablet Famotidine 20 MG 06/22/2020 12:00:00 A M EST 1.0 {tablet_at_bedtime_as_needed} active Fa motidine 20 MG eCW1 ([facility]) Famotidine 20 MG Oral Tablet Famotidine 20 MG 06/22/2020 12:00:00 A M EST 1.0 {tablet_at_bedtime_as_needed} active Fa motidine 20 MG eCW1 ([facility]) Famotidine 20 MG Oral Tablet Famotidine 20 MG 06/22/2020 12:00:00 A M EST 1.0 {tablet_at_bedtime_as_needed} active Fa motidine 20 MG eCW1 ([facility]) Famotidine 20 MG Oral Tablet Famotidine 20 MG 06/22/2020 12:00:00 A M EST 1.0 {tablet_at_bedtime_as_needed} active Fa motidine 20 MG eCW1 ([facility]) Famotidine 20 MG Oral Tablet Famotidine 20 MG 06/22/2020 12:00:00 A M EST 1.0 {tablet_at_bedtime_as_needed} active Fa motidine 20 MG eCW1 ([facility]) Famotidine 20 MG Oral Tablet Famotidine 20 MG 06/22/2020 12:00:00 A M EST 1.0 {tablet_at_bedtime_as_needed} active Fa motidine 20 MG eCW1 ([facility]) Famotidine 20 MG Oral Tablet Famotidine 20 MG 06/22/2020 12:00:00 A M EST 1.0 {tablet_at_bedtime_as_needed} active Fa motidine 20 MG eCW1 ([facility]) Famotidine 20 MG Oral Tablet Famotidine 20 MG 06/22/2020 12:00:00 A M EST 1.0 {tablet_at_bedtime_as_needed} active Fa motidine 20 MG eCW1 ([facility]) Famotidine 20 MG Oral Tablet Famotidine 20 MG 06/22/2020 12:00:00 A M EST 1.0 {tablet_at_bedtime_as_needed} active Fa motidine 20 MG eCW1 ([facility]) Famotidine 20 MG Oral Tablet Famotidine 20 MG 06/22/2020 12:00:00 A M EST 1.0 {tablet_at_bedtime_as_needed} active Fa motidine 20 MG eCW1 ([facility]) Famotidine 20 MG Oral Tablet Famotidine 20 MG 06/22/2020 12:00:00 A M EST 1.0 {tablet_at_bedtime_as_needed} active Fa motidine 20 MG eCW1 ([facility]) Famotidine 20 MG Oral Tablet Famotidine 20 MG 06/22/2020 12:00:00 A M EST 1.0 {tablet_at_bedtime_as_needed} active Fa motidine 20 MG eCW1 ([facility]) Famotidine 20 MG Oral Tablet Famotidine 20 MG 06/22/2020 12:00:00 A M EST 1.0 {tablet_at_bedtime_as_needed} active Fa motidine 20 MG eCW1 ([facility]) Famotidine 20 MG Oral Tablet Famotidine 20 MG 06/22/2020 12:00:00 A M EST 1.0 {tablet_at_bedtime_as_needed} active Fa motidine 20 MG eCW1 ([facility]) Famotidine 20 MG Oral Tablet Famotidine 20 MG 06/22/2020 12:00:00 A M EST 1.0 {tablet_at_bedtime_as_needed} active Fa motidine 20 MG eCW1 ([facility]) Famotidine 20 MG Oral Tablet Famotidine 20 MG 06/22/2020 12:00:00 A M EST 1.0 {tablet_at_bedtime_as_needed} active Fa motidine 20 MG eCW1 ([facility]) Famotidine 20 MG Oral Tablet Famotidine 20 MG 06/22/2020 12:00:00 A M EST 1.0 {tablet_at_bedtime_as_needed} active Fa motidine 20 MG eCW1 ([facility]) Famotidine 20 MG Oral Tablet Famotidine 20 MG 06/22/2020 12:00:00 A M EST 1.0 {tablet_at_bedtime_as_needed} active Fa motidine 20 MG eCW1 ([facility]) Famotidine 20 MG Oral Tablet Famotidine 20 MG 06/22/2020 12:00:00 A M EST 1.0 {tablet_at_bedtime_as_needed} active Fa motidine 20 MG eCW1 (Formerly [facility]) Famotidine 20 MG Oral Tablet Famotidine 20 MG 06/22/2020 12:00:00 A M EST 1.0 {tablet_at_bedtime_as_needed} active Fa motidine 20 MG eCW1 (Formerly [facility]) 1 mg 06/07/2020 12:00:00 AM EST [...] type / Coverage type Policy ID Covered democrat ID Covered democrat's relationship to [place] Policy [place] Plan Information Medicaid [place] Med[place] Part B [id number] [place] [id number] Self [id number] Medicare [facility] Medigap Part B [id number] Self [id number] [place] [id number] Self [id number] [place] [id number] Self [id number] [place] [id number] Self [id number] MEDICARE [id number] SP [id number] W [place] [id number] Self [id number] [place] [id number] Self [id number] MEDICARE [id number] [facility] [id number] [place] B [id number] Self [id number] [place] [id number] Self [id number] [place] [id number] [place] [id number] Self [id number] [place] [id number] Self [id number] [place] Med[place] [id number] Self [id number] zzMedicaid FFS O [id number] S [id number] Medicaid S [id number] S [id number] Medicare P [id number] S [id number] W Medicaid S [id number] S [id number] Medicaid O [id number] S [id number] Medicare S [id number] S [id number] W [facility] MCRO [id number] SP [id number] [facility] Medicare Commercial Dual Complete [id number] Self Dual Complete [facility] MCRO [id number] SP [id number] [facility] Secure Horizons P [id number] S [id number] [facility] Secure Horizons P [id number] S [id number] [facility] Secure Horizons P [id number] S [id number] [place] [id number] Self [id number] [facility] ([facility]) Commercial [id number] [place] [id number] Self [facility] ([facility]) Commercial [id number] Self [id number] [facility] ([facility]) Medigap Part B [id number] Self [id number] [place] [id number] Self [id number] [place] [id number] Self [id number] [facility] ([facility]) Medigap Part B [id number] Self [id number] [place] [id number] Self [id number] [facility] ([facility]) Medigap Part B [id number] Self [id number] [place] [id number] Self [id number] [facility] ([facility]) Medigap Part B [id number] Self [id number] [place] [id number] Self [id number] [facility] ([facility]) Medigap Part B [id number] Self [id number] [place] [id number] Self [id number] [facility] ([facility]) Commercial [id number] Self [id number] [place] [id number] Self [id number] [facility] ([facility]) Medigap Part B [id number] Self [id number] [place] [id number] Self [id number] [facility] ([facility]) Medigap Part B [id number] Self [id number] [place] [id number] Self [id number] [facility] ([facility]) Medigap Part B [id number] Self [id number] [place] [id number] Self [id number] [facility] ([facility]) Medigap Part B [id number] Self [id number] [place] [id number] Self [id number] [facility] ([facility]) Commercial [id number] Self [id number] Medicaid S [id number] S [id number] [facility] Medicare Commercial [id number] Self [id number] [facility] [id number] SP [id number] [employer] MEDICARE [id number] Danielle [id number] [facility] Hmo Commercial [id number] Self [id number] MEDICARE [facility] O [id number] S [id number] [facility] Medicare Medigap Part B [id number] Self [id number] [facility] O [id number] S [id number] [facility] Hmo Commercial [id number] Self [employer] HMO [id number] SP [id number] [facility] [id number] SP [id number] [employer] HMO [id number] SP [id number] MEDICARE [id number] SP [id number] MEDICAID [id number] SP [id number] MEDICARE [id number] SP [id number] [facility]) O [id number] S [id number] MEDICARE C [id number] S [id number] W Medicare Wrap O [id number] S [id number] [place] [id number] SP [id number] W MEDICAID [id number] S [id number] [employer] GOLD O [id number] S [id number] [place] [id number] SP [id number] [employer] GOLD PLUS -O/P [id number] 18 [id number] MEDICARE [id number] SP [id number] W zzMedicaid FFS O [id number] S [id number] [employer] GOLD [id number] SP [id number] [employer] GOLD [id number] SP [id number] [employer] Medicare Medigap Part B [id number] Self [id number] MEDICARE [id number] SP [id number] W MEDICAID [id number] SP [id number] Problems, Conditions, and Diagnoses Code Display Name Description Problem Type Effective Dates Data Source(s) Z794 detention (current) use of insulin detention (cu rrent) use of insulin Diagnosis 07/12/2020 07:15:00 AM [facility] Z885 Allergy status to narcotic agent Allergy status to narcotic agent Diagnosis 07/12/2020 07:15:00 AM [facility] V60790 Preglaucoma, unspecified, bilateral Preglaucoma, unspecified, bilateral Diagnosis 07/12/2020 07:15:00 AM [facility] H524 Presbyopia Presbyopia Diagnosis 07/12/2020 07:15:00 AM [facility] F329 Major depressive disorder, single episod e, unspecified Major depressive disorder, single episode, unspecified Diagnosis 07/12/2020 07:15:00 AM [facility] F419 Anxiety disorder, unspecified Anxiety disorder, unspec ified Diagnosis 07/12/2020 07:15:00 AM [facility] I10 Essential (primary) hypertension Essential (primary) h ypertension Diagnosis 07/12/2020 07:15:00 AM [facility] H2513 Age-related nuclear cataract, bilateral Age-related nuclear cataract, bilateral Diagnosis 07/12/2020 07:15:00 AM [facility] E1136 Type 2 diabetes mellitus with diabetic c ataract Type 2 diabetes mellitus with diabetic cataract Diagnosis 07/12/2020 07:15:00 AM [facility] Z833 Family history of diabetes mellitus Family histo ry of diabetes mellitus Diagnosis 05/17/2020 09:00:00 AM [facility] Z8249 Family history of ischemic h eart disease and other diseases of the circulatory system Family history of ischemic heart disease and other diseases of the circulatory system Diagnosis 05/17/2020 09:00:00 AM [facility] X00466 Other long filler cigar roller machine (current) drug therapy O ther long filler cigar roller machine (current) drug therapy Diagnosis 05/17/2020 09:00:00 AM [facility] F411 Generalized anxiety disorder Generalized anxiety disor johnathan Diagnosis 05/17/2020 09:00:00 AM [facility] H259 Unspecified age-related cataract Unspecified age -related cataract Diagnosis 05/17/2020 09:00:00 AM [facility] [id number] Encounter for other preprocedural examin ation Encounter for other preprocedural examination Diagnosis 05/10/2020 09:20:00 AM [facility] E66.9 Obesity, unspecified Obesity, unspecified Diagnosis 02/04/2020 11:09:03 AM EDT [facility] R60.9 Edema, unspecified Edema, unspecified Diagnosis 06/2019 11:09:03 AM EDT [facility] E11.9 Type 2 diabetes mellitus without complic ations Type 2 diabetes mellitus without complic Diagnosis 02/04/2020 11:09:03 AM EDT [facility] R94.31 Abnormal electrocardiogram [ECG] [EKG] A bnormal electrocardiogram (ECG) (EKG) Diagnosis 02/04/2020 11:09:03 AM EDT [facility] G47.33 Obstructive sleep apnea (adult) (pediatr ic) Obstructive sleep apnea (adult) (pediatr Diagnosis 02/04/2020 11:09:03 AM EDT [facility] E03.9 Hypothyroidism, unspecified Hypothyroidism, unspecifie d Diagnosis 02/04/2020 11:09:03 AM EDT [facility] J44.9 Chronic obstructive pulmonary disease, u nspecified Chronic obstructive pulmonary disease, u Diagnosis 02/04/2020 11:09:03 AM EDT [facility] I10 Essential (primary) hypertension Essential (primary) h ypertension Diagnosis 02/04/2020 11:09:03 AM EDT [facility] E78.5 Hyperlipidemia, unspecified Hyperlipidemia, unspecifie d Diagnosis 02/04/2020 11:09:03 AM EDT [facility] E03.9 [id number] Hypothyroidism, unspecified type Problem 02/10/2021 12:00:00 AM EDT eCW1 ([facility]) R29.6 [id number] Frequent falls Problem 02/09/2021 12:00:00 A M EDT eCW1 ([facility]) E11.8 [id number] Type 2 diabetes mellitus with complicatio ns Problem 11/30/2020 12:00:00 AM EDT eCW1 ([facility]) N18.4 [id number] Chronic kidney disease, stage 4 (severe) Problem 11/30/2020 12:00:00 AM EDT eCW1 ([facility]) E78.5 Hyperlipidemia Hyperlipidemia, unspecified Problem 10/05/2020 12:00:00 AM EDT eCW1 ([facility]) Z92.241 [id number] History of steroid therapy Problem 12:00:00 AM EDT eCW1 ([facility]) E11.22 535735875 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 Problem 06/22/2020 12:00:00 AM EST eCW1 (Pending sale to [facility]) G47.00 [id number] Insomnia, unspecified type Problem 12:00:00 AM EST eCW1 ([facility]) G47.9 [id number] Sleep disturbance Problem 06/22/2020 12:00:0 0 AM EST eCW1 ([facility]) H25.11 [id number] Age-related nuclear cataract, right ey e Problem 05/08/2020 12:00:00 AM EST eCW1 ([facility]) E11.21 920012971 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 Problem 03/30/2020 12:00:00 AM EST eCW1 ([facility]) I10 51684955 Hypertension, unspecified type Problem 03/30 12:00:00 AM EST eCW1 ([facility]) F17.200 [id number] Smoker Problem 03/30/2020 12:00:00 AM ES T eCW1 ([facility]) Z90.81 836998400 Asplenia after surgical procedure Problem 03/30/2020 12:00:00 AM EST eCW1 ([facility]) E11.69 [id number] Type 2 diabetes mellitus with ot her specified complication Problem 03/30/2020 12:00:00 AM EST eCW1 (Pending sale to [facility]) Surgeries/Procedures Procedure Description Date Indications Data Source(s) RADEX HAND MINIMUM 3 VIEWS 12/14/2020 12:00:00 AM EDT [facility] ([facility]) OFFICE OUTPATIENT VISIT 15 MINUTES 12/14/2020 12:00:00 AM EDT [facility] ([facility]) THERAPEUTIC PX 1/> AREAS EACH 15 MIN EXERCISES 12:00:00 AM EDT [facility] ([facility] ) Results ID Date Data Source [id number] 01/31/2021 05:10:00 PM EDT [facility] Name Value Range Interpretation Code Description Data Anju rce(s) Supporting Document(s) SARS coronavirus 2 RNA [Presence] in Res piratory specimen by HECTOR with probe detection NEGATIVE [facility] This lab was ordered by [facility] a nd reported by [facility]. ID Date Data Source [id number] 12/08/2020 04:45:00 PM EDT [facility] Name Value Range Interpretation Code Description Data Anju rce(s) Supporting Document(s) SARS-CoV-2 (COVID-19) Negative [facility] This lab was ordered by [facility] and reported by [facility]. ID Date Data Source UA URINALYSIS 11/09/2020 12:00:00 AM EDT eCW1 ([facility]) Name Value Range Interpretation Code Description Data Anju rce(s) Supporting Document(s) UA URINALYSIS eCW1 ([facility]) ID Date Data Source [id number] 07/19/2020 02:01:00 [place] [address] OPERATIVE SUMMARYNAME: MAZIN BENITEZ DATE OF : 1955TTENDING PHYS: Norma Asher MD DATE: 07/12/20 MR#: [id number] OF PROCEDURE: 07/12/20PREOPERATIVE DIAGNOSIS: Cataract, left eye.POSTOPERATIVE DIAGNOSIS: Cataract, left eyePROCEDURE: Phacoemulsification with cataract removal with the help of ORA, IOL lens useAUOOTO 18.5 diopter.SURGEON: Norma Asher MD.FLUTE GRINDER: None.INDICATIONS: Decreased vision interfering with daily activities.DETAILS [...] salt solution followed by phacoemulsification in a gnmntj-vte-dlnjeyt methodwithin the capsular bag. Excess cortical material [...] rce(s) Supporting Document(s) ID Date Data Source [id number] 07/07/2020 01:46:00 PM EST [facility] Name Value Range Interpretation Code Description Data Anju rce(s) Supporting Document(s) SARS-CoV-2 (COVID-19) Negative [facility] This lab was ordered by [facility] and reported by [facility]. ID Date Data Source [id number] 06/25/2020 09:05:00 AM EST [facility] Name Value Range Interpretation Code Description Data Anju rce(s) Supporting Document(s) SARS-CoV-2 (COVID 19) NEGATIVE - SARS-CoV-2 (COVID19) [facility] This lab was ordered by [facility] a nd reported by [facility]. ID Date Data Source [id number] 05/25/2020 08:51:00 [place] [address] OPERATIVE SUMMARYNAME: MAZIN BENITEZ DATE OF : 3ATTENDING PHYS: Norma Asher MD DATE: 05/17/20 MR#: [id number] OF PROCEDURE: 05/17/2020REOPERATIVE DIAGNOSIS: Cataract, right eye.POSTOPERATIVE DIAGNOSIS: Cataract, right eyePROCEDURE: Phacoemulsification with intraocular lens implantation with the help of DIEGO GIFFORD 18 diopters.SURGEON: Norma Asher MD.FLUTE GRINDER: None.COMPLICATIONS: None.INDICATIONS: Decreased vision interfering with daily [...] salt solution followed by phacoemulsification in a jdyiev-ihv-[id number] methodwithin the capsular bag. Excess cortical material [...] condition.DD: Norma Asher MD 05/25/20 08:27 [address] [place] [address] OPERATIVE SUMMARYNAME: MAZIN BENITEZ DATE OF : 1955TTENDING PHYS: Norma Asher MD DATE: 05/17/20 MR#: [id number]: SSR 05/25/20 08:50DS: Norma Asher MD 06/05/20 13:41 2 Name Value Range Interpretation Code Description Data Anju rce(s) Supporting Document(s) ID Date Data Source [id number] 05/12/2020 11:07:00 AM EST [facility] Name Value Range Interpretation Code Description Data Anju rce(s) Supporting Document(s) SARS-CoV-2 (COVID-19) Negative [facility] This lab was ordered by [facility] and reported by [facility]. Procedure Social History Code Duration Value Status Description Data Source(s ) Smoking 03/02/2021 12:00:00 AM EDT Former Smoker completed Former Smoker eCW1 ([facility]) Smoking 02/09/2021 12:00:00 AM EDT Former Smoker completed Former Smoker eCW1 ([facility]) Smoking 02/09/2021 12:00:00 AM EDT Former Smoker completed Former Smoker eCW1 ([facility]) Smoking 01/01/2021 12:00:00 AM EDT Former Smoker completed Former Smoker eCW1 ([facility]) Smoking 01/01/2021 12:00:00 AM EDT Former Smoker completed Former Smoker eCW1 ([facility]) Smoking 11/28/2020 12:00:00 AM EDT Former Smoker completed Former Smoker eCW1 ([facility]) Smoking 11/28/2020 12:00:00 AM EDT Former Smoker completed Former Smoker eCW1 ([facility]) Smoking 11/09/2020 12:00:00 AM EDT Former Smoker completed Former Smoker eCW1 ([facility]) Smoking 11/09/2020 12:00:00 AM EDT Former Smoker completed Former Smoker eCW1 ([facility]) Smoking 11/09/2020 12:00:00 AM EDT Former Smoker completed Former Smoker eCW1 ([facility]) Smoking 11/09/2020 12:00:00 AM EDT Former Smoker completed Former Smoker eCW1 ([facility]) Smoking 11/09/2020 12:00:00 AM EDT Former Smoker completed Former Smoker eCW1 ([facility]) Smoking 11/09/2020 12:00:00 AM EDT Former Smoker completed Former Smoker eCW1 ([facility]) Smoking 11/09/2020 12:00:00 AM EDT Former Smoker completed Former Smoker eCW1 ([facility]) Smoking 11/09/2020 12:00:00 AM EDT Former Smoker completed Former Smoker eCW1 ([facility]) Smoking 11/09/2020 12:00:00 AM EDT Former Smoker completed Former Smoker eCW1 ([facility]) Smoking 11/09/2020 12:00:00 AM EDT Former Smoker completed Former Smoker eCW1 ([facility]) Smoking 11/09/2020 12:00:00 AM EDT Former Smoker completed Former Smoker eCW1 ([facility]) Smoking 11/09/2020 12:00:00 AM EDT Former Smoker completed Former Smoker eCW1 ([facility]) Smoking 11/09/2020 12:00:00 AM EDT Former Smoker completed Former Smoker eCW1 ([facility]) Smoking 11/09/2020 12:00:00 AM EDT Former Smoker completed Former Smoker eCW1 ([facility]) Smoking 11/09/2020 12:00:00 AM EDT Former Smoker completed Former Smoker eCW1 ([facility]) Smoking 11/09/2020 12:00:00 AM EDT Former Smoker completed Former Smoker eCW1 ([facility]) Smoking 11/09/2020 12:00:00 AM EDT Former Smoker completed Former Smoker eCW1 ([facility]) Smoking 11/09/2020 12:00:00 AM EDT Former Smoker completed Former Smoker eCW1 ([facility]) Smoking 11/09/2020 12:00:00 AM EDT Former Smoker completed Former Smoker eCW1 ([facility]) Smoking 10/26/2020 12:00:00 AM EDT Former Smoker completed Former Smoker eCW1 ([facility]) Smoking 07/06/2020 12:00:00 AM EST Former Smoker completed Former Smoker eCW1 ([facility]) Smoking 06/21/2020 12:00:00 AM EST Former Smoker completed Former Smoker eCW1 ([facility]) Smoking 05/22/2020 12:00:00 AM EST Former Smoker completed Former Smoker eCW1 ([facility]) Smoking 05/22/2020 12:00:00 AM EST Former Smoker completed Former Smoker eCW1 ([facility]) Smoking 05/22/2020 12:00:00 AM EST Former Smoker completed Former Smoker eCW1 ([facility]) Smoking 05/08/2020 12:00:00 AM EST Former Smoker completed Former Smoker eCW1 ([facility]) Vital Signs ID Date Data Source UNK Name Value Range Interpretation Code Description Data Source(s) Body temperature 96.9 [degF] 96.9 [degF] [facility] ([facility]) Body height 61.75 [in_i] 61.75 [in_i] [facility] ([facility]) 5'1.75" Body weight 168.12 [lb_av] 168.12 [lb_av] MEDEN T ([facility] ) Body mass index (BMI) [Ratio] 31.0 kg/m2 31.0 k g/m2 [facility] ([facility]) Body weight 181.0 [lb_av] 181.0 [lb_av] eCW1 ([facility]) Body height 61.75 [in_i] 61.75 [in_i] eCW1 ([facility]) Body mass index (BMI) [Ratio] 33.37 kg/m2 33.37 kg/m2 eCW1 ([facility]) Heart rate 77 /min 77 /min eCW1 ([facility]) Respiratory rate 18 /min 18 /min eCW1 ([facility]) Body temperature 96.9 [degF] 96.9 [degF] eCW1 ( [facility]) Systolic blood pressure 130 mm[Hg] 130 mm[Hg] e CW1 ([facility]) Diastolic blood pressure 70 mm[Hg] 70 mm[Hg] eCW1 ([facility]) Respiratory rate 18 /min 18 /min eCW1 ([facility]) Body temperature 96.1 [degF] 96.1 [degF] eCW1 ( [facility]) Systolic blood pressure 130 mm[Hg] 130 mm[Hg] e CW1 ([facility]) Diastolic blood pressure 80 mm[Hg] 80 mm[Hg] eCW1 ([facility]) Body weight 179.8 [lb_av] 179.8 [lb_av] eCW1 ([facility]) Body height 61.75 [in_i] 61.75 [in_i] eCW1 ([facility]) Body mass index (BMI) [Ratio] 33.15 kg/m2 33.15 kg/m2 eCW1 ([facility]) Heart rate 75 /min 75 /min eCW1 ([facility]) Diastolic blood pressure 88 mm[Hg] 88 mm[Hg] eCW1 ([facility]) Body weight 177.6 [lb_av] 177.6 [lb_av] eCW1 ([facility]) Body height 61.75 [in_i] 61.75 [in_i] eCW1 ([facility]) Body mass index (BMI) [Ratio] 32.74 kg/m2 32.74 kg/m2 eCW1 ([facility]) Heart rate 78 /min 78 /min eCW1 ([facility]) Respiratory rate 18 /min 18 /min eCW1 ([facility]) Body temperature 97.8 [degF] 97.8 [degF] eCW1 ( [facility]) Systolic blood pressure 130 mm[Hg] 130 mm[Hg] e CW1 ([facility]) Body weight 184.6 [lb_av] 184.6 [lb_av] eCW1 ([facility]) Body height 61.75 [in_i] 61.75 [in_i] eCW1 ([facility]) Body mass index (BMI) [Ratio] 34.03 kg/m2 34.03 kg/m2 eCW1 ([facility]) Heart rate 84 /min 84 /min eCW1 ([facility]) Respiratory rate 18 /min 18 /min eCW1 ([facility]) Body temperature 97.1 [degF] 97.1 [degF] eCW1 ( [facility]) Systolic blood pressure 120 mm[Hg] 120 mm[Hg] e CW1 ([facility]) Diastolic blood pressure 74 mm[Hg] 74 mm[Hg] eCW1 ([facility]) ID Date Data Source [id number] 08/16/2020 03:20:59 PM EDT [facility] Name Value Range Interpretation Code Description Data Source(s) WEIGHT RECORDED 184.00 pounds 184.00 pounds [facility] Height 60 Inches 060 Inches [facility] ID Date Data Source [id number] 06/05/2020 01:41:52 PM EST [facility] Name Value Range Interpretation Code Description Data Source(s) WEIGHT RECORDED 184.00 pounds 184.00 pounds [facility] Height 60 Inches 060 Inches [facility] Patient Treatment Plan of Care Planned Activity Planned Date Details Description Data Source (s) Cyanocobalamin 1000 MCG 02/02/2021 12:00:00 AM EDT eCW1 ([facility]) Insulin Glargine 100 UNIT/ML 11/30/2020 12:00:00 AM EDT eCW1 ([facility]) Insulin Glargine 100 UNIT/ML 11/30/2020 12:00:00 AM EDT eCW1 ([facility]) Nystatin 100 UNT/MG Topical Powder 11/23/2020 12:00:00 AM EDT eCW1 ([facility]) Nystatin 100 UNT/MG Topical Powder 11/23/2020 12:00:00 AM EDT eCW1 ([facility]) Nystatin 100 UNT/MG Topical Powder 11/23/2020 12:00:00 AM EDT eCW1 ([facility]) Nystatin 100 UNT/MG Topical Powder 11/23/2020 12:00:00 AM EDT eCW1 ([facility]) Nystatin 100 UNT/MG Topical Powder 11/23/2020 12:00:00 AM EDT eCW1 ([facility]) Nystatin 100 UNT/MG Topical Powder 11/23/2020 12:00:00 AM EDT eCW1 ([facility]) Nystatin 100 UNT/MG Topical Powder 11/23/2020 12:00:00 AM EDT eCW1 ([facility]) Nystatin 100 UNT/MG Topical Powder 11/23/2020 12:00:00 AM EDT eCW1 ([facility]) Nystatin 100 UNT/MG Topical Powder 11/23/2020 12:00:00 AM EDT eCW1 ([facility]) Nystatin 100 UNT/MG Topical Powder 11/23/2020 12:00:00 AM EDT eCW1 ([facility]) Fluconazole 150 MG Oral Tablet 11/21/2020 12:00:00 AM EDT eCW1 ([facility]) Nystatin 100 UNT/MG Topical Powder 11/21/2020 12:00:00 AM EDT eCW1 ([facility]) Fluconazole 150 MG Oral Tablet 11/21/2020 12:00:00 AM EDT eCW1 ([facility]) Nystatin 100 UNT/MG Topical Powder 11/21/2020 12:00:00 AM EDT eCW1 ([facility]) Fluconazole 150 MG Oral Tablet 11/21/2020 12:00:00 AM EDT eCW1 ([facility]) Nystatin 100 UNT/MG Topical Powder 11/21/2020 12:00:00 AM EDT eCW1 ([facility]) Fluconazole 150 MG Oral Tablet 11/21/2020 12:00:00 AM EDT eCW1 ([facility]) Nystatin 100 UNT/MG Topical Powder 11/21/2020 12:00:00 AM EDT eCW1 ([facility]) Fluconazole 150 MG Oral Tablet 11/21/2020 12:00:00 AM EDT eCW1 ([facility]) Nystatin 100 UNT/MG Topical Powder 11/21/2020 12:00:00 AM EDT eCW1 ([facility]) Nystatin 100 UNT/MG Topical Powder 11/21/2020 12:00:00 AM EDT eCW1 (Formerly [facility]) Fluconazole 150 MG Oral Tablet 11/21/2020 12:00:00 AM EDT eCW1 (Formerly [facility]) Nystatin 100 UNT/MG Topical Powder 11/21/2020 12:00:00 AM EDT eCW1 (Formerly [facility]) Fluconazole 150 MG Oral Tablet 11/21/2020 12:00:00 AM EDT eCW1 (Formerly [facility]) Nystatin 100 UNT/MG Topical Powder 11/21/2020 12:00:00 AM EDT eCW1 (Formerly [facility]) Fluconazole 150 MG Oral Tablet 11/21/2020 12:00:00 AM EDT eCW1 (Formerly [facility]) Nystatin 100 UNT/MG Topical Powder 11/21/2020 12:00:00 AM EDT eCW1 (Formerly [facility]) Fluconazole 150 MG Oral Tablet 11/21/2020 12:00:00 AM EDT eCW1 (Formerly [facility]) Nystatin 100 UNT/MG Topical Powder 11/21/2020 12:00:00 AM EDT eCW1 ([facility]ly [facility]) Fluconazole 150 MG Oral Tablet 11/21/2020 12:00:00 AM EDT eCW1 ([facility]) Fluconazole 150 MG Oral Tablet 11/21/2020 12:00:00 AM EDT eCW1 ([facility]ly [facility]) Nystatin 100 UNT/MG Topical Powder 11/21/2020 12:00:00 AM EDT eCW1 ([facility]) Fluconazole 150 MG Oral Tablet 11/21/2020 12:00:00 AM EDT eCW1 ([facility]) Nystatin 100 UNT/MG Topical Powder 11/21/2020 12:00:00 AM EDT eCW1 ([facility]) Fluconazole 150 MG Oral Tablet 11/21/2020 12:00:00 AM EDT eCW1 ([facility]) Nystatin 100 UNT/MG Topical Powder 11/21/2020 12:00:00 AM EDT eCW1 ([facility]ly [facility]) Test Strips - 11/15/2020 12:00:00 AM EDT eCW1 ([facility]) Test Strips - 11/15/2020 12:00:00 AM EDT eCW1 ([facility]) Test Strips - 11/15/2020 12:00:00 AM EDT eCW1 ([facility]) Test Strips - 11/15/2020 12:00:00 AM EDT eCW1 ([facility]) Test Strips - 11/15/2020 12:00:00 AM EDT eCW1 ([facility]) Test Strips - 11/15/2020 12:00:00 AM EDT eCW1 ([facility]) Test Strips - 11/15/2020 12:00:00 AM EDT eCW1 ([facility]) Test Strips - 11/15/2020 12:00:00 AM EDT eCW1 ([facility]) Test Strips - 11/15/2020 12:00:00 AM EDT eCW1 ([facility]) Test Strips - 11/15/2020 12:00:00 AM EDT eCW1 ([facility]) Test Strips - 11/15/2020 12:00:00 AM EDT eCW1 ([facility]) Test Strips - 11/15/2020 12:00:00 AM EDT eCW1 ([facility]) Test Strips - 11/15/2020 12:00:00 AM EDT eCW1 ([facility]) Test Strips - 11/15/2020 12:00:00 AM EDT eCW1 ([facility]) Test Strips - 11/15/2020 12:00:00 AM EDT eCW1 ([facility]) Test Strips - 11/15/2020 12:00:00 AM EDT eCW1 ([facility]) Test Strips - 11/15/2020 12:00:00 AM EDT eCW1 ([facility]) Levothyroxine Sodium 0.025 MG Oral Tablet 11/08/2020 12:00:00 AM ED T eCW1 (Formerly [facility]) Famotidine 20 MG Oral Tablet 06/22/2020 12:00:00 AM EST eCW1 (Formerly [facility])
[2021-03-16] MEDS ORDERED: HumaLOG INSULIN (NovoLOG) PER UNIT SC SCH (21:00)
[2021-03-16] MEDS: DOCUSATE SODIUM 100MG CAPSULE PO SCH (21:20)
[2021-03-16 21:34] LABS: C REACTIVE PROTEIN QUANTITATIV 4.41 MG/DL (0.00-0.30)
[2021-03-16 22:15] LABS: ERYTHROCYTE SEDIMENTATION RATE 78 mm/hr (0-30)
[2021-03-16 22:25] LABS: INR 1.08; PARTIAL THROMBOPLASTIN TIME 26.1 SECONDS (25.9-37.0); PROTHROMBIN TIME 14.4 SECONDS (12.7-14.5)
[2021-03-16 22:37] VITALS: BP 154/70
[2021-03-17] MEDS ORDERED: COMBIVENT RESPIMAT 100-20MCG INHALER 4GM INH PRN (02:45)
[2021-03-17 05:58] LABS: HEMATOCRIT 29.4 % (36.0-47.0); HEMOGLOBIN 9.5 g/dl (12.0-15.5); MEAN CORPUSCULAR HEMOGLOBIN 32.8 pg (27.0-33.0); MEAN CORPUSCULAR HGB CONC 32.3 g/dl (32.0-36.5); MEAN CORPUSCULAR VOLUME 101.4 fl (80.0-96.0); PLATELET COUNT, AUTOMATED 149 10^3/uL (150-450); WHITE BLOOD COUNT 18.3 10^3/uL (4.0-10.0)
[2021-03-17 06:00] VITALS: BP 111/53
[2021-03-17 06:14] LABS: CALCIUM LEVEL 8.1 MG/DL (8.8-10.2); CREATININE FOR GFR 1.11 MG/DL (0.55-1.30); GLOMERULAR FILTRATION RATE 52.2 (>45); MAGNESIUM LEVEL 2.3 MG/DL (1.8-2.4); POTASSIUM SERUM 3.5 MEQ/L (3.5-5.1)
--- NOTE | 2021-03-17 07:06 | ECGEPIP ---
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 Order Number: [id number] Reading MD: Cruzito Calderon Measurements Intervals [place] Rate: 72 P: 65 WA: 162 QRS: 2 QRSD: 74 T: 54 QT: 386 QTc: 422 Interpretive Statements Normal sinus rhythm POOR R WAVE PROGRESSION BASELINE ARTIFACT AFFECTS INTERPRETATION Electronically Signed on 03-17-2021 7:05:51 EST by Cruzito Calderon
[2021-03-17] MEDS ORDERED: glipiZIDE (GLUCOTROL) 5 MG TAB PO SCH (07:30)
[2021-03-17] MEDS ORDERED: HumaLOG INSULIN (NovoLOG) PER UNIT SC SCH (07:30)
[2021-03-17] MEDS: DOCUSATE SODIUM 100MG CAPSULE PO SCH (08:12)
[2021-03-17] MEDS: LevoFLOXacin 750 MG TABLET PO SCH (08:12)
[2021-03-17] MEDS: ENOXAPARIN 40MG/0.4ML SYRINGE (J1650 PER 10MG) SC SCH (08:12)
[2021-03-17] MEDS ORDERED: AMLO1TAB25 PO (08:18)
[2021-03-17] MEDS ORDERED: CYAN100050 PO (08:18)
[2021-03-17] MEDS ORDERED: LEVO750T13 PO (08:18)
[2021-03-17] MEDS ORDERED: HOME MED LIST COMPLETE! XX SCH (08:20)
[2021-03-17] MEDS ORDERED: EZETIMIBE 10MG TABLET (ZETIA) PO SCH (09:00)
[2021-03-17] MEDS ORDERED: LEXA1TAB PO (12:09)
--- NOTE | 2021-03-17 12:15 | IPNPDOC ---
Subjective Date Seen The patient was seen on 03/17/21. Subjective Chief Complaint/HPI No complaints this morning feels well. Reports that if she is laying in bed she does not have any problem but feels dizzy and lightheaded when she is getting out of bed. Objective Physical Examination General Exam: Positive: Alert, Cooperative, No Acute Distress Eye Exam: Positive: PERRLA, Conjunctiva & lids normal, EOMI; Negative: Sclera icteric Neck Exam: Positive: Supple; Negative: JVD, thyromegaly Chest Exam: Positive: Clear to auscultation, Normal air movement Heart Exam: Negative: Rate Normal, Tachycardic, Bradycardic, Regular Rhythm, Irregular Rhythm, Normal S1, Normal S2, Gallops, Murmurs, Rubs, Other Abdomen Exam: Positive: Normal bowel sounds, Soft; Negative: Tenderness, Hepatospenomegaly Extremity Exam: Negative: Clubbing, Cyanosis, Edema Psych Exam: Positive: Memory Intact, Oriented x 3 Assessment /Plan Assessment 66 y/o female with a pmh of htn, hld, copd, paulino not on cpap, gerd, dm2, splenectomy, hypothyroidism, depression/anxiety, glaucoma, bilateral total hip arthroplasty, right knee replacement who reported to our ED on 03/16 with a cc of profound weakness x1 day. Patient was discharged from our hospital yesterday 03/15 after a 4 day stay for metabolic encephalopathy i/s/o sepsis 2/2 uti and LILIANE. Patient stated that she felt as though she had not fully recovered and is still profoundly weak. Patient stated that overnight, she attempted to get up out of bed to use the restroom, however was unable, became dizzy, and fell back onto her mattress. Patient stated that her home health aid had to help her in ambulating. The patient all complained diarrhea 3-4 times a day for some time and has been "living on pepto bismol." Patient was admitted for deconditioning, generalized weakness and inability to ambulate. Lab work in the ED showed leukocytosis of 18.3 without any other signs of infection. Procalcitonin has been ordered. Generalized deconditioning/debility After hospitalization Difficulty in ambulation PT /OT May benefit from continued rehab after discharge prior to going Leukocytosis Cause undetermined Does not look to have any new infection at this Will finish levofloxacin course Procalcitonin has been ordered Diarrhea with leukocytosis GI panel has been ordered on admission Stopped docusate We will continue to monitor Diabetes Sugars well controlled Will only give glipizide 10 twice daily We will discontinue home glargine and lispro at this time Hypertension BP well controlled Recently valsartan was changed to amlodipine for LILIANE. However now that LILIANE has resolved if needed will restart valsartan Hypothyroidism Continue Synthroid 212.5 mcg daily Hyperlipidemia Continue rosuvastatin Patient reports that she no longer takes Zetia Overactive bladder Takes Myrbetriq we will continue on discharge GERD Continue famotidine Insomnia Trazodone as needed Glaucoma Post to be on acetazolamide. Patient reports that she no longer takes Diamox Continue Combigan eyedrop Depression Continue Lexapro Vitamin B-12 deficiency Continue supplement. Osteoarthritis Continue meloxicam COPD Continue Combivent as needed Plan/VTE VTE Prophylaxis Ordered?: Yes VS, I&O, 24H, Fishbone Vital Signs/I&O Vital Signs Date Time Temp Pulse Resp B/P (MAP) Pulse Ox O2 Delivery O2 Flow Rate FiO2 03/17/21 06:00 98.9 65 18 111/53 (72) 97 Room Air l I&O- Last 24 Hours up to 6 AM 03/17/21 05:59 Intake Total 520 ml Output Total 400 ml Balance 120 ml Laboratory Data 24H LABS Laboratory Tests 2 03/16/21 15:48: Immature Granulocyte % (Auto) 2.2, Neutrophils (%) (Auto) 82.8H, Lymphocytes (%) (Auto) 5.6L, Monocytes (%) (Auto) 8.5H, Eosinophils (%) (Auto) 0.6, Basophils (%) (Auto) 0.3, Neutrophils # (Auto) 15.6H, Lymphocytes # (Auto) 1.1L, Monocytes # (Auto) 1.6H, Eosinophils # (Auto) 0.1, Basophils # (Auto) 0.1, Nucleated Red Blood Cells % (auto) 0.0, Erythrocyte Sedimentation Rate 78H, Anion Gap 7L, Glomerular Filtration Rate 46.4, Calcium Level 9.2, Total Bilirubin 0.8, Direct Bilirubin 0.2, Aspartate Amino Transf (AST/SGOT) 31, Alanine Aminotransferase (ALT/SGPT) 40, Alkaline Phosphatase 96, Total Creatine Kinase 330H, Creatine Kinase MB 1.7, Creatine Kinase MB Relative Index 0.52, Troponin I < 0.02, C- Reactive Protein, Quantitative 4.41H, QM-Tja-U-Type Natriuretic Peptide 335H, Total Protein 6.5, Albumin 3.0L, Albumin/Globulin Ratio 0.9L 03/16/21 18:05: Lactic Acid Level 1.1 03/16/21 21:19: Bedside Glucose (Misc Panel) 144H 03/16/21 21:39: Prothrombin Time 14.4H, Prothromb Time International Ratio 1.08, Activated Partial Thromboplast Time 26.1 03/17/21 03:57: Bedside Glucose (Misc Panel) 125H 03/17/21 05:23: Nucleated Red Blood Cells % (auto) 0.0, Anion Gap 7L, Glomerular Filtration Rate 52.2, Calcium Level 8.1L, Magnesium Level 2.3 CBC/BMP Laboratory Tests 03/16/21 15:48 03/17/21 05:23 Microbiology Microbiology 03/16/21 Respiratory Virus Panel (PCR) ([facility]) - Final, Complete 03/16/21 Blood Culture, Received Pending 03/16/21 Blood Culture, Received Pending Chiquita Chen MD Mar 17, 2021 12:15
[2021-03-17] MEDS: BRIMONIDINE 0.15% OPHTH SOLN 5 ML OU SCH ×2 (12:20→20:33)
[2021-03-17] MEDS: TIMOLOL MALEATE 0.5% OPHTH SOLN 5 ML OU SCH ×2 (12:20→20:33)
[2021-03-17] MEDS: LEVOTHYROXINE 100MCG TABLET (0.1MG) PO SCH (12:24)
[2021-03-17] MEDS: ESCITALOPRAM OXALATE 10 MG TAB (LEXAPRO) PO SCH (12:24)
[2021-03-17] MEDS: LEVOTHYROXINE 12.5MCG PER 1/2 TAB (0.0125MG) PO SCH (12:24)
[2021-03-17] MEDS: MELOXICAM (MOBIC) 7.5 MG TAB PO SCH (12:24)
[2021-03-17 14:00] VITALS: BP 105/40
[2021-03-17] MEDS: ACETAMINOPHEN TAB 650MG DOSE (2X325MG) PO PRN (14:06)
[2021-03-17] MEDS: glipiZIDE (GLUCOTROL) 5 MG TAB PO SCH (17:10)
[2021-03-17] MEDS: ROSUVASTATIN 10 MG TAB (CRESTOR) PO SCH (20:33)
[2021-03-17] MEDS: FAMOTIDINE 20 MG TAB PO SCH (20:33)
[2021-03-17] MEDS ORDERED: traZODone 25MG PER 1/2 TABLET PO PRN (21:00)
[2021-03-17] MEDS ORDERED: traZODone 25MG PER 1/2 TABLET PO SCH (21:00)
[2021-03-17] MEDS ORDERED: acetaZOLAMIDE 250 MG TAB PO SCH (21:00)
[2021-03-17 22:00] VITALS: BP 130/60
[2021-03-18] MEDS: LEVOTHYROXINE 100MCG TABLET (0.1MG) PO SCH (05:48)
[2021-03-18] MEDS: LEVOTHYROXINE 12.5MCG PER 1/2 TAB (0.0125MG) PO SCH (05:48)
[2021-03-18 06:00] VITALS: BP 105/53
[2021-03-18 06:24] LABS: BASO # 0.1 10^3/uL (0.0-0.2); BASO % 0.3 % (0.0-1.0); EOS # 0.3 10^3/uL (0.0-0.5); EOS % 1.9 % (0.0-3.0); HEMATOCRIT 28.7 % (36.0-47.0); LYMPH # 1.8 10^3/uL (1.5-5.0); LYMPH % 9.9 % (24.0-44.0); MEAN CORPUSCULAR HEMOGLOBIN 31.7 pg (27.0-33.0); MEAN CORPUSCULAR HGB CONC 31.4 g/dl (32.0-36.5); MEAN CORPUSCULAR VOLUME 101.1 fl (80.0-96.0); MONO % 11.7 % (2.0-8.0); NEUTROPHILS % 73.5 % (36.0-66.0); PLATELET COUNT, AUTOMATED 200 10^3/uL (150-450); RED BLOOD COUNT 2.84 10^6/uL (4.00-5.40); WHITE BLOOD COUNT 17.7 10^3/uL (4.0-10.0)
[2021-03-18 06:47] LABS: ALBUMIN 2.2 GM/DL (3.2-5.2); BILIRUBIN,TOTAL 0.6 MG/DL (0.2-1.0); CREATININE FOR GFR 1.1 MG/DL (0.55-1.30); GLOMERULAR FILTRATION RATE 52.7 (>45); MAGNESIUM LEVEL 2.1 MG/DL (1.8-2.4); PHOSPHORUS LEVEL 2.5 MG/DL (2.5-4.9); POTASSIUM SERUM 3.8 MEQ/L (3.5-5.1); TOTAL PROTEIN 5.3 GM/DL (6.4-8.2)
[2021-03-18 07:07] LABS: MONO # 2.1 10^3/uL (0.0-0.8)
[2021-03-18] MEDS: ESCITALOPRAM OXALATE 10 MG TAB (LEXAPRO) PO SCH (08:47)
[2021-03-18] MEDS: glipiZIDE (GLUCOTROL) 5 MG TAB PO SCH ×2 (08:47→17:57)
[2021-03-18] MEDS: MELOXICAM (MOBIC) 7.5 MG TAB PO SCH (08:48)
[2021-03-18] MEDS: TIMOLOL MALEATE 0.5% OPHTH SOLN 5 ML OU SCH ×2 (08:48→20:20)
[2021-03-18] MEDS: ENOXAPARIN 40MG/0.4ML SYRINGE (J1650 PER 10MG) SC SCH (08:48)
[2021-03-18] MEDS: BRIMONIDINE 0.15% OPHTH SOLN 5 ML OU SCH ×2 (08:48→20:20)
[2021-03-18 14:00] VITALS: BP 121/56
--- NOTE | 2021-03-18 17:48 | IPNPDOC ---
Subjective Date Seen The patient was seen on 03/18/21. Subjective Chief Complaint/HPI No new complaints this am. Continues to feels weak and dizzy. Complains of dizziness and light headedness on sitting up. Has worked with PT. No fever or chills, no abdominal pain . had 1 loose bowel movement, No cough or phlegm. WBC remains elevated though a little better than yesterday. Objective Physical Examination General Exam: Positive: Alert, Cooperative, No Acute Distress Eye Exam: Positive: PERRLA, Conjunctiva & lids normal, EOMI; Negative: Sclera icteric Neck Exam: Positive: Supple; Negative: JVD, thyromegaly Chest Exam: Positive: Clear to auscultation, Normal air movement Heart Exam: Negative: Rate Normal, Tachycardic, Bradycardic, Regular Rhythm, Irregular Rhythm, Normal S1, Normal S2, Gallops, Murmurs, Rubs, Other Abdomen Exam: Positive: Normal bowel sounds, Soft; Negative: Tenderness, Hepatospenomegaly Extremity Exam: Negative: Clubbing, Cyanosis, Edema Psych Exam: Positive: Memory Intact, Oriented x 3 Assessment /Plan Assessment 66 y/o female with a pmh of htn, hld, copd, paulino not on cpap, gerd, dm2, splenectomy, hypothyroidism, depression/anxiety, glaucoma, bilateral total hip arthroplasty, right knee replacement who reported to our ED on 03/16 with a cc of profound weakness x1 day. Patient was discharged from our hospital yesterday 03/15 after a 4 day stay for metabolic encephalopathy i/s/o sepsis 2/2 uti and LILIANE. Patient stated that she felt as though she had not fully recovered and is still profoundly weak. Patient stated that overnight, she attempted to get up out of bed to use the restroom, however was unable, became dizzy, and fell back onto her mattress. Patient stated that her home health aid had to help her in ambulating. The patient all complained diarrhea 3-4 times a day for some time and has been "living on pepto bismol." Patient was admitted for deconditioning, generalized weakness and inability to ambulate. Lab work in the ED showed leukocytosis of 18.3 without any other signs of infection. Procalcitonin has been ordered. Generalized deconditioning/debility After hospitalization Difficulty in ambulation PT /OT May benefit from continued rehab after discharge prior to going Leukocytosis Cause undetermined Does not look to have any new infection at this Will finish levofloxacin course Procalcitonin has been ordered Diarrhea with leukocytosis GI panel has been ordered on admission Stopped docusate We will continue to monitor Diabetes Sugars well controlled Will only give glipizide 10 twice daily We will discontinue home glargine and lispro at this time Hypertension BP well controlled Recently valsartan was changed to amlodipine for LILIANE. However now that LILIANE has resolved if needed will restart valsartan Hypothyroidism Continue Synthroid 212.5 mcg daily Hyperlipidemia Continue rosuvastatin Patient reports that she no longer takes Zetia Overactive bladder Takes Myrbetriq we will continue on discharge GERD Continue famotidine Insomnia Trazodone as needed Glaucoma Post to be on acetazolamide. Patient reports that she no longer takes Diamox Continue Combigan eyedrop Depression Continue Lexapro Vitamin B-12 deficiency Continue supplement. Osteoarthritis Continue meloxicam COPD Continue Combivent as needed Plan/VTE VTE Prophylaxis Ordered?: Yes VS, I&O, 24H, Fishbone Vital Signs/I&O Vital Signs Date Time Temp Pulse Resp B/P (MAP) Pulse Ox O2 Delivery O2 Flow Rate FiO2 03/18/21 06:00 97.1 60 19 105/53 (70) 92 Room Air I&O- Last 24 Hours up to 6 AM 03/18/21 06:00 Intake Total 1420 ml Output Total 500 ml Balance 920 ml Laboratory Data 24H LABS Laboratory Tests 2 03/17/21 16:56: Bedside Glucose (Misc Panel) 227H 03/17/21 19:45: Bedside Glucose (Misc Panel) 152H 03/18/21 05:22: Immature Granulocyte % (Auto) 2.7, Neutrophils (%) (Auto) 73.5H, Lymphocytes (%) (Auto) 9.9L, Monocytes (%) (Auto) 11.7H, Eosinophils (%) (Auto) 1.9, Basophils (%) (Auto) 0.3, Neutrophils # (Auto) 13.0H, Lymphocytes # (Auto) 1.8, Monocytes # (Auto) 2.1H, Eosinophils # (Auto) 0.3, Basophils # (Auto) 0.1, Nucleated Red Blood Cells % (auto) 0.0, Anion Gap 5L, Glomerular Filtration Rate 52.7, Calcium Level 8.0L, Phosphorus Level 2.5, Magnesium Level 2.1, Total Bilirubin 0.6, Aspartate Amino Transf (AST/SGOT) 20, Alanine Aminotransferase (ALT/SGPT) 28, Alkaline Phosphatase 79, Total Protein 5.3L, Albumin 2.2#L, Albumin/Globulin Ratio 0.7L CBC/BMP Laboratory Tests 03/18/21 05:22 Microbiology Microbiology 03/16/21 Respiratory Virus Panel (PCR) ([facility]) - Final, Complete 03/16/21 Blood Culture - Preliminary, Resulted No growth after 24 hours . All specim... 03/16/21 Blood Culture - Preliminary, Resulted No growth after 24 hours . All specim... Chiquita Chen MD Mar 18, 2021 07:53
[2021-03-18] MEDS: ROSUVASTATIN 10 MG TAB (CRESTOR) PO SCH (20:19)
[2021-03-18] MEDS: FAMOTIDINE 20 MG TAB PO SCH (20:20)
[2021-03-18 22:00] VITALS: BP 153/63
[2021-03-19 06:00] VITALS: BP 148/56
[2021-03-19 06:01] LABS: BASO # 0.1 10^3/uL (0.0-0.2); BASO % 0.4 % (0.0-1.0); EOS # 0.4 10^3/uL (0.0-0.5); EOS % 2.6 % (0.0-3.0); HEMATOCRIT 28.2 % (36.0-47.0); HEMOGLOBIN 8.9 g/dl (12.0-15.5); LYMPH # 2.2 10^3/uL (1.5-5.0); LYMPH % 14.4 % (24.0-44.0); MEAN CORPUSCULAR HEMOGLOBIN 31.9 pg (27.0-33.0); MEAN CORPUSCULAR HGB CONC 31.6 g/dl (32.0-36.5); MEAN CORPUSCULAR VOLUME 101.1 fl (80.0-96.0); NEUTROPHILS # 9.9 10^3/uL (1.5-8.5); NEUTROPHILS % 66.5 % (36.0-66.0); PLATELET COUNT, AUTOMATED 255 10^3/uL (150-450); RED BLOOD COUNT 2.79 10^6/uL (4.00-5.40); WHITE BLOOD COUNT 14.9 10^3/uL (4.0-10.0)
[2021-03-19] MEDS: LEVOTHYROXINE 100MCG TABLET (0.1MG) PO SCH (06:09)
[2021-03-19] MEDS: LEVOTHYROXINE 12.5MCG PER 1/2 TAB (0.0125MG) PO SCH (06:09)
[2021-03-19 06:28] LABS: ALBUMIN 2.2 GM/DL (3.2-5.2); ALT/SGPT 24 U/L (12-78); BILIRUBIN,TOTAL 0.4 MG/DL (0.2-1.0); BLOOD UREA NITROGEN 20 MG/DL (7-18); CARBON DIOXIDE LEVEL 22 MEQ/L (21-32); CHLORIDE LEVEL 112 MEQ/L (98-107); CREATININE FOR GFR 0.93 MG/DL (0.55-1.30); GLOMERULAR FILTRATION RATE > 60.0 (>45); GLUCOSE, FASTING 102 MG/DL (70-100); MAGNESIUM LEVEL 2.3 MG/DL (1.8-2.4); POTASSIUM SERUM 3.6 MEQ/L (3.5-5.1); SODIUM LEVEL 142 MEQ/L (136-145); TOTAL PROTEIN 5.2 GM/DL (6.4-8.2)
[2021-03-19 06:49] LABS: MONO # 2.1 10^3/uL (0.0-0.8)
[2021-03-19] MEDS: glipiZIDE (GLUCOTROL) 5 MG TAB PO SCH ×2 (07:06→16:46)
[2021-03-19] MEDS: TIMOLOL MALEATE 0.5% OPHTH SOLN 5 ML OU SCH ×2 (08:16→19:53)
[2021-03-19] MEDS: ENOXAPARIN 40MG/0.4ML SYRINGE (J1650 PER 10MG) SC SCH (08:16)
[2021-03-19] MEDS: BRIMONIDINE 0.15% OPHTH SOLN 5 ML OU SCH ×2 (08:16→19:53)
[2021-03-19] MEDS: ESCITALOPRAM OXALATE 10 MG TAB (LEXAPRO) PO SCH (08:16)
[2021-03-19] MEDS: LevoFLOXacin 750 MG TABLET PO SCH (08:16)
[2021-03-19] MEDS: MELOXICAM (MOBIC) 7.5 MG TAB PO SCH (08:16)
--- NOTE | 2021-03-19 09:49 | IPNPDOC ---
Subjective Date Seen The patient was seen on 03/19/21. Subjective Chief Complaint/HPI Patient complains of feeling a little bloated and has swelling in both her legs. No other complaints this morning. No cough no shortness of breath. Denies any dizziness or lightheadedness Objective Physical Examination General Exam: Positive: Alert, Cooperative, No Acute Distress Eye Exam: Positive: PERRLA, Conjunctiva & lids normal, EOMI; Negative: Sclera icteric Neck Exam: Positive: Supple; Negative: JVD, thyromegaly Chest Exam: Positive: Clear to auscultation, Normal air movement Heart Exam: Negative: Rate Normal, Tachycardic, Bradycardic, Regular Rhythm, Irregular Rhythm, Normal S1, Normal S2, Gallops, Murmurs, Rubs, Other Abdomen Exam: Positive: Normal bowel sounds, Soft; Negative: Tenderness, Hepatospenomegaly Extremity Exam: Negative: Clubbing, Cyanosis, Edema Psych Exam: Positive: Memory Intact, Oriented x 3 Assessment /Plan Assessment 66 y/o female with a pmh of htn, hld, copd, paulino not on cpap, gerd, dm2, splenectomy, hypothyroidism, depression/anxiety, glaucoma, bilateral total hip arthroplasty, right knee replacement who reported to our ED on 03/16 with a cc of profound weakness x1 day. Patient was discharged from our hospital yesterday 03/15 after a 4 day stay for metabolic encephalopathy i/s/o sepsis 2/2 uti and LILIANE. Patient stated that she felt as though she had not fully recovered and is still profoundly weak. Patient stated that overnight, she attempted to get up out of bed to use the restroom, however was unable, became dizzy, and fell back onto her mattress. Patient stated that her home health aid had to help her in ambulating. The patient all complained diarrhea 3-4 times a day for some time and has been "living on pepto bismol." Patient was admitted for deconditioning, generalized weakness and inability to ambulate. Lab work in the ED showed leuko cytosis of 18.3 without any other signs of infection. Procalcitonin has been ordered. Generalized deconditioning/debility After hospitalization Difficulty in ambulation PT /OT May benefit from continued rehab after discharge prior to going home Leukocytosis Cause undetermined Does not look to have any new infection at this time Will finish levofloxacin course Procalcitonin not elevated Diarrhea with leukocytosis Stopped docusate No further diarrhea so GI panel was not sent. Diabetes Sugars well controlled Will only give glipizide 10 twice daily We will discontinue home glargine and lispro at this time Hypertension BP well controlled Recently valsartan was changed to amlodipine for LILIANE. However now that LILIANE has resolved if needed will restart valsartan Hypothyroidism Continue Synthroid 212.5 mcg daily Hyperlipidemia Continue rosuvastatin Patient reports that she no longer takes Zetia Overactive bladder Takes Myrbetriq we will continue on discharge GERD Continue famotidine Insomnia Trazodone as needed Glaucoma Post to be on acetazolamide. Patient reports that she no longer takes Diamox Continue Combigan eyedrop Depression Continue Lexapro Vitamin B-12 deficiency Continue supplement. Osteoarthritis Continue meloxicam COPD Continue Combivent as needed Plan/VTE VTE Prophylaxis Ordered?: Yes VS, I&O, 24H, Fishbone Vital Signs/I&O Vital Signs Date Time Temp Pulse Resp B/P (MAP) Pulse Ox O2 Delivery O2 Flow Rate FiO2 03/19/21 06:00 99.6 60 18 148/56 (86) 98 Room Air I&O- Last 24 Hours up to 6 AM 03/19/21 06:00 Intake Total 1200 ml Output Total 1100 ml Balance 100 ml Laboratory Data 24H LABS Laboratory Tests 2 03/18/21 11:34: Bedside Glucose (Misc Panel) 170H 03/18/21 16:24: Bedside Glucose (Misc Panel) 168H 03/19/21 04:56: Immature Granulocyte % (Auto) 2.1, Neutrophils (%) (Auto) 66.5H, Lymphocytes (%) (Auto) 14.4L, Monocytes (%) (Auto) 14.0H, Eosinophils (%) (Auto) 2.6, Basophils (%) (Auto) 0.4, Neutrophils # (Auto) 9.9H, Lymphocytes # (Auto) 2.2, Monocytes # (Auto) 2.1H, Eosinophils # (Auto) 0.4, Basophils # (Auto) 0.1, Nucleated Red Blood Cells % (auto) 0.0, Anion Gap 8, Glomerular Filtration Rate > 60.0, Calc ium Level 8.0L, Magnesium Level 2.3, Total Bilirubin 0.4, Aspartate Amino Transf (AST/SGOT) 20, Alanine Aminotransferase (ALT/SGPT) 24, Alkaline Phosphatase 76, Total Protein 5.2L, Albumin 2.2L, Albumin/Globulin Ratio 0.7L CBC/BMP Laboratory Tests 03/19/21 04:56 Microbiology Microbiology 03/16/21 Respiratory Virus Panel (PCR) ([facility]) - Final, Complete 03/16/21 Blood Culture - Preliminary, Resulted No Growth after 48 hours. All Specime... 03/16/21 Blood Culture - Preliminary, Resulted No Growth after 48 hours. All Specime... Chiquita Chen MD Mar 19, 2021 09:49
[2021-03-19] MEDS ORDERED: FUROSEMIDE 40MG/4ML VIAL (J1940) IV ONE (10:00)
[2021-03-19 14:00] VITALS: BP 124/57
[2021-03-19] MEDS: FUROSEMIDE 40 MG TAB PO SCH (16:47)
[2021-03-19] MEDS: ROSUVASTATIN 10 MG TAB (CRESTOR) PO SCH (19:53)
[2021-03-19] MEDS: FAMOTIDINE 20 MG TAB PO SCH (19:53)
[2021-03-19 21:00] VITALS: BP 126/52
[2021-03-20 06:00] VITALS: BP 131/62
[2021-03-20] MEDS: LEVOTHYROXINE 12.5MCG PER 1/2 TAB (0.0125MG) PO SCH (06:10)
[2021-03-20] MEDS: LEVOTHYROXINE 100MCG TABLET (0.1MG) PO SCH (06:11)
[2021-03-20 07:33] LABS: BASO # 0.1 10^3/uL (0.0-0.2); BASO % 0.4 % (0.0-1.0); EOS # 0.3 10^3/uL (0.0-0.5); EOS % 1.9 % (0.0-3.0); HEMATOCRIT 28.3 % (36.0-47.0); LYMPH # 1.8 10^3/uL (1.5-5.0); LYMPH % 12.5 % (24.0-44.0); MEAN CORPUSCULAR HEMOGLOBIN 31.9 pg (27.0-33.0); MEAN CORPUSCULAR HGB CONC 31.8 g/dl (32.0-36.5); MEAN CORPUSCULAR VOLUME 100.4 fl (80.0-96.0); MONO % 13.6 % (2.0-8.0); NEUTROPHILS # 10.2 10^3/uL (1.5-8.5); NEUTROPHILS % 69.4 % (36.0-66.0); PLATELET COUNT, AUTOMATED 298 10^3/uL (150-450); RED BLOOD COUNT 2.82 10^6/uL (4.00-5.40); WHITE BLOOD COUNT 14.7 10^3/uL (4.0-10.0)
[2021-03-20 07:54] LABS: ALBUMIN 2.1 GM/DL (3.2-5.2); BILIRUBIN,TOTAL 0.5 MG/DL (0.2-1.0); CREATININE FOR GFR 1.15 MG/DL (0.55-1.30); GLOMERULAR FILTRATION RATE 50.1 (>45); MAGNESIUM LEVEL 2.2 MG/DL (1.8-2.4); POTASSIUM SERUM 3.8 MEQ/L (3.5-5.1); TOTAL PROTEIN 5.1 GM/DL (6.4-8.2)
[2021-03-20 07:57] VITALS: BP 131/62
[2021-03-20] MEDS: FUROSEMIDE 40 MG TAB PO SCH ×2 (08:47→17:56)
[2021-03-20] MEDS: TIMOLOL MALEATE 0.5% OPHTH SOLN 5 ML OU SCH ×2 (08:48→20:55)
[2021-03-20] MEDS: glipiZIDE (GLUCOTROL) 5 MG TAB PO SCH ×2 (08:48→17:56)
[2021-03-20] MEDS: BRIMONIDINE 0.15% OPHTH SOLN 5 ML OU SCH ×2 (08:49→20:56)
[2021-03-20] MEDS: MELOXICAM (MOBIC) 7.5 MG TAB PO SCH (09:01)
[2021-03-20] MEDS: ENOXAPARIN 40MG/0.4ML SYRINGE (J1650 PER 10MG) SC SCH (09:01)
[2021-03-20] MEDS: ESCITALOPRAM OXALATE 10 MG TAB (LEXAPRO) PO SCH (09:01)
--- NOTE | 2021-03-20 13:12 | IPNPDOC ---
Subjective Date Seen The patient was seen on 03/20/21. Subjective Chief Complaint/HPI Patient has been working with her's physical therapy and making slow steady progress to the point that she would likely be able to go home with home services in the next 24 hours. Patient however perceives that she would be unable to manage by herself at home and needs to either go to rehab or an assisted living however really could not explain why she cannot manage at home. I did explain that she could always apply for assisted living from the community through her primary care. Complaints of leg swelling which is a little better today after getting Lasix. Objective Physical Examination General Exam: Positive: Alert, Cooperative, No Acute Distress Eye Exam: Positive: PERRLA, Conjunctiva & lids normal, EOMI; Negative: Sclera icteric Neck Exam: Positive: Supple; Negative: JVD, thyromegaly Chest Exam: Positive: Clear to auscultation, Normal air movement Heart Exam: Negative: Rate Normal, Tachycardic, Bradycardic, Regular Rhythm, Irregular Rhythm, Normal S1, Normal S2, Gallops, Murmurs, Rubs, Other Abdomen Exam: Positive: Normal bowel sounds, Soft; Negative: Tenderness, Hepatospenomegaly Extremity Exam: Negative: Clubbing, Cyanosis, Edema Psych Exam: Positive: Memory Intact, Oriented x 3 Assessment /Plan Assessment 66 y/o female with a pmh of htn, hld, copd, paulino not on cpap, gerd, dm2, splenectomy, hypothyroidism, depression/anxiety, glaucoma, bilateral total hip arthroplasty, right knee replacement who reported to our ED on 03/16 with a cc of profound weakness x1 day. Patient was discharged from our hospital yesterday 03/15 after a 4 day stay for metabolic encephalopathy i/s/o sepsis 2/2 uti and LILIANE. Patient stated that she felt as though she had not fully recovered and is still profoundly weak. Patient stated that overnight, she attempted to get up out of bed to use the restroom, however was unable, became dizzy, and fell back onto her mattress. Patient stated that her home health aid had to help her in ambulating. The patient all complained diarrhea 3-4 times a day for some time and has been "living on pepto bismol." Patient was admitted for deconditioning, generalized weakness and inability to ambulate. Lab work in the ED showed leukocytosis of 18.3 without any other signs of infection. Procalcitonin has been ordered. Generalized deconditioning/debility After hospitalization Difficulty in ambulation. Patient working with physical therapy and making st amy progress Patient per feels safe that she is not safe to go home and needs to go to rehab and then transition to assisted living. However the way she is working with physical therapy I think she should be able to go home with home services. I did explain to her that she could still apply for assisted living from the community through her prior primary care. Continue PT /OT Leukocytosis Cause undetermined Does not look to have any new infection at this time Will finish levofloxacin course Procalcitonin not elevated Diarrhea with leukocytosis Stopped docusate No further diarrhea so GI panel was not sent. Diabetes Sugars well controlled with only glipizide 10 mg twice a day Not needing any insulin in the hospital We will discontinue home glargine and lispro at this time Hypertension BP well controlled. Not needing any blood pressure medications in the hospital at present. Recently valsartan was changed to amlodipine for LILIANE. However now that LILIANE has resolved if needed will restart valsartan Hypothyroidism Continue Synthroid 212.5 mcg daily Hyperlipidemia Continue rosuvastatin Patient reports that she no longer takes Zetia Overactive bladder Takes Myrbetriq we will continue on discharge GERD Continue famotidine Insomnia Trazodone as needed Glaucoma Used to be on acetazolamide. Patient reports that she no longer takes Diamox Continue Combigan eyedrop Depression Continue Lexapro Vitamin B-12 deficiency Continue supplement. Osteoarthritis Continue meloxicam COPD Continue Combivent as needed Disposition Home with services Plan/VTE VTE Prophylaxis Ordered?: Yes VS, I&O, [facility]O Vital Signs Date Time Temp Pulse Resp B/P (MAP) Pulse Ox O2 Delivery O2 Flow Rate FiO2 03/20/21 07:57 98.6 62 17 131/62 99 Room Air I&O- Last 24 Hours up to 6 AM 03/20/21 06:00 Intake Total 1140 ml Output Total 1350 ml Balance -210 ml Laboratory Data 24H LABS Laboratory Tests 2 03/19/21 17:02: Bedside Glucose (Misc Panel) 160H 03/20/21 06:57: Immature Granulocyte % (Auto) 2.2, Neutrophils (%) (Auto) 69.4H, Lymphocytes (%) (Auto) 12.5L, Monocytes (%) (Auto) 13.6H, Eosinophils (%) (Auto) 1.9, Basophils (%) (Auto) 0.4, Neutrophils # (Auto) 10.2H, Lymphocytes # (Auto) 1.8, Monocytes # (Auto) 2.0H, Eosinophils # (Auto) 0.3, Basophils # (Auto) 0.1, Nucleated Red Blood Cells % (auto) 0.0, Anion Gap 5L, Glomerular Filtration Rate 50.1, Calcium Level 8.0L, Magnesium Level 2.2, Total Bilirubin 0.5, Aspartate Amino Transf (AST/SGOT) 28, Alanine Aminotransferase (ALT/SGPT) 31, Alkaline Phosphatase 79, Total Protein 5.1L, Albumin 2.1L, Albumin/Globulin Ratio 0.7L 03/20/21 07:25: Bedside Glucose (Misc Panel) 110 03/20/21 11:53: Bedside Glucose (Misc Panel) 203H CBC/BMP Laboratory Tests 03/20/21 06:57 Microbiology Microbiology 03/16/21 Respiratory Virus Panel (PCR) ([facility]) - Final, Complete 03/16/21 Blood Culture - Preliminary, Resulted No Growth after 72 hours. All specime... 03/16/21 Blood Culture - Preliminary, Resulted No Growth after 72 hours. All specime... Chiquita Chen MD Mar 20, 2021 13:12
[2021-03-20 13:54] VITALS: BP 128/58
[2021-03-20 14:00] VITALS: BP 109/39
[2021-03-20] MEDS: FAMOTIDINE 20 MG TAB PO SCH (20:56)
[2021-03-20] MEDS: ROSUVASTATIN 10 MG TAB (CRESTOR) PO SCH (20:56)
[2021-03-20 22:00] VITALS: BP 125/56
[2021-03-21] MEDS: LEVOTHYROXINE 12.5MCG PER 1/2 TAB (0.0125MG) PO SCH (05:54)
[2021-03-21] MEDS: LEVOTHYROXINE 100MCG TABLET (0.1MG) PO SCH (05:54)
[2021-03-21 06:00] VITALS: BP 133/60
[2021-03-21 06:20] LABS: BASO # 0.1 10^3/uL (0.0-0.2); BASO % 0.4 % (0.0-1.0); EOS # 0.4 10^3/uL (0.0-0.5); EOS % 2.5 % (0.0-3.0); HEMATOCRIT 29.1 % (36.0-47.0); HEMOGLOBIN 9.1 g/dl (12.0-15.5); LYMPH # 1.8 10^3/uL (1.5-5.0); MEAN CORPUSCULAR HEMOGLOBIN 31.4 pg (27.0-33.0); MEAN CORPUSCULAR HGB CONC 31.3 g/dl (32.0-36.5); MEAN CORPUSCULAR VOLUME 100.3 fl (80.0-96.0); MONO # 1.9 10^3/uL (0.0-0.8); MONO % 13.5 % (2.0-8.0); NEUTROPHILS # 9.6 10^3/uL (1.5-8.5); NEUTROPHILS % 69.1 % (36.0-66.0); PLATELET COUNT, AUTOMATED 360 10^3/uL (150-450); WHITE BLOOD COUNT 13.9 10^3/uL (4.0-10.0)
[2021-03-21 06:39] LABS: ALBUMIN 2.2 GM/DL (3.2-5.2); BILIRUBIN,TOTAL 0.4 MG/DL (0.2-1.0); CALCIUM LEVEL 8.4 MG/DL (8.8-10.2); CREATININE FOR GFR 1.19 MG/DL (0.55-1.30); GLOMERULAR FILTRATION RATE 48.2 (>45); MAGNESIUM LEVEL 2.1 MG/DL (1.8-2.4); POTASSIUM SERUM 3.7 MEQ/L (3.5-5.1); TOTAL PROTEIN 5.4 GM/DL (6.4-8.2)
[2021-03-21] MEDS ORDERED: LANTINJ4 SC (08:13)
[2021-03-21] MEDS ORDERED: CRES10TA PO (08:16)
[2021-03-21] MEDS ORDERED: GLIP5TAB8 PO (08:16)
[2021-03-21] MEDS ORDERED: LASI20TA3 PO (08:23)
[2021-03-21] MEDS ORDERED: VALS40TA9 PO (08:23)
[2021-03-21] MEDS ORDERED: GLIP10TA PO (08:23)
[2021-03-21] MEDS: FUROSEMIDE 40 MG TAB PO SCH (11:25)
[2021-03-21] MEDS: glipiZIDE (GLUCOTROL) 5 MG TAB PO SCH (11:25)
[2021-03-21] MEDS: ESCITALOPRAM OXALATE 10 MG TAB (LEXAPRO) PO SCH (11:26)
[2021-03-21] MEDS: TIMOLOL MALEATE 0.5% OPHTH SOLN 5 ML OU SCH (11:26)
[2021-03-21] MEDS: ENOXAPARIN 40MG/0.4ML SYRINGE (J1650 PER 10MG) SC SCH (11:26)
[2021-03-21] MEDS: MELOXICAM (MOBIC) 7.5 MG TAB PO SCH (11:26)
[2021-03-21] MEDS: BRIMONIDINE 0.15% OPHTH SOLN 5 ML OU SCH (11:26)
[2021-03-21] MEDS: LevoFLOXacin 750 MG TABLET PO SCH (11:34)
[2021-03-21 14:00] VITALS: BP 128/57
[2021-03-21] MEDS: ACETAMINOPHEN TAB 650MG DOSE (2X325MG) PO PRN (14:40)
--- NOTE | 2021-03-21 18:30 | DS.PDOC ---
Discharge Summary General Date of Admission Mar 17, 2021 at 16:30 Date of Discharge 03/21/21 Discharge Summary PROCEDURES PERFORMED DURING STAY: [None]. DISCHARGE DIAGNOSES: Generalized deconditioning/debility Secondary diagnosis HTN, HLD, COPD, NOAH not on cpap, GERD, diabetes, splenectomy, hypothyroidism, depression/anxiety, glaucoma, bilateral total hip arthroplasty, right knee replacement, overactive bladder, glaucoma, depression, osteoarthritis, insomnia COMPLICATIONS/CHIEF COMPLAINT: Unable To Ambulate. HOSPITAL COURSE: 66 y/o female with a pmh of htn, hld, copd, noah not on cpap, gerd, dm2, splenectomy, hypothyroidism, depression/anxiety, glaucoma, bilateral total hip arthroplasty, right knee replacement who reported to our ED on 03/16 with a cc of profound weakness x1 day. Patient was discharged from our hospital yesterday 03/15 after a 4 day stay for metabolic encephalopathy i/s/o sepsis 2/2 uti and LILIANE. Patient stated that she felt as though she had not fully recovered and is still profoundly weak. Patient stated that overnight, she attempted to get up out of bed to use the restroom, however was unable, became dizzy, and fell back onto her mattress. Patient stated that her home health aid had to help her in ambulating. The patient all complained diarrhea 3-4 times a day for some time and has been "living on pepto bismol." Patient was admitted for deconditioning, generalized weakness and inability to ambulate. Lab work in the ED showed leukocytosis of 18.3 without any other signs of infection. Procalcitonin has been ordered. Generalized deconditioning/debility After hospitalization Difficulty in ambulation. Patient working with physical therapy and making steady progress Patient per feels safe that she is not safe to go home and needs to go to rehab and then transition to assisted living. However the way she is working with physical therapy I think she should be able to go home with home services. I did explain to her that she could still apply for assisted living from the community through her prior primary care. Continue PT /OT Leukocytosis improving Cause undetermined Does not look to have any new infection at this time Will finish levofloxacin course Procalcitonin not elevated Diarrhea with leukocytosis Stopped docusate No further diarrhea so GI panel was not sent. Diabetes Sugars well controlled in hospital with only glipizide 10 mg twice a day Not needing any insulin in the hospital We will discontinue home lispro at this time We will continue with home glargine at lower dose of 8 units/day Hypertension BP well controlled. Not needing any blood pressure medications in the hospital at present. Recently valsartan was changed to amlodipine for LILIANE. However now that LILIANE has resolved if needed will restart valsartan Will restart valsartan at low-dose of 40 mg. Hypothyroidism Continue Synthroid 212.5 mcg daily Hyperlipidemia Continue rosuvastatin Patient reports that she no longer takes Zetia Overactive bladder Takes Myrbetriq we will continue on discharge GERD Continue famotidine Insomnia Trazodone as needed Glaucoma Used to be on acetazolamide. Patient reports that she no longer takes Diamox Continue Combigan eyedrop Depression Continue Lexapro Vitamin B-12 deficiency Continue supplement. Osteoarthritis Continue meloxicam COPD Continue Combivent as needed DISCHARGE MEDICATIONS: Please see below. ALLERGIES: Please see below. PHYSICAL EXAMINATION ON DISCHARGE: VITAL SIGNS: Please see below. General Exam: Positive: Alert, Cooperative, No Acute Distress Eye Exam: Positive: PERRLA, Conjunctiva & lids normal, EOMI; Negative: Sclera icteric Neck Exam: Positive: Supple; Negative: JVD, thyromegaly Chest Exam: Positive: Clear to auscultation, Normal air movement Heart Exam: Negative: Rate Normal, Tachycardic, Bradycardic, Regular Rhythm, Irregular Rhythm, Normal S1, Normal S2, Gallops, Murmurs, Rubs, Other Abdomen Exam: Positive: Normal bowel sounds, Soft; Negative: Tenderness, Hepatosplenomegaly Extremity Exam: Negative: Clubbing, Cyanosis, Edema Psych Exam: Positive: Memory Intact, Oriented x 3 LABORATORY DATA: Please see below. ACTIVITY: [As tolerated]. DIET: Carb consistent DISCHARGE PLAN: Home DISPOSITION: 06 Home Health Service. DISCHARGE INSTRUCTIONS: Home with services Home PT Follow-up with primary care in 1 week If leukocytosis persists would benefit from a referral to hematology DISCHARGE CONDITION: [Stable]. TIME SPENT ON DISCHARGE: 35 minutes. Vital Signs/I&Os Vital Signs Date Time Temp Pulse Resp B/P (MAP) Pulse Ox O2 Delivery O2 Flow Rate FiO2 03/21/21 14:00 98.0 56 18 128/57 (80) 97 Room Air I&O- Last 24 Hours up to 6 AM 03/21/21 06:00 Intake Total 1680 ml Output Total 2850 ml Balance -1170 ml Laboratory Data Labs 24H Laboratory Tests 2 03/21/21 05:34: Immature Granulocyte % (Auto) 1.5, Neutrophils (%) (Auto) 69.1H, Lymphocytes (%) (Auto) 13.0L, Monocytes (%) (Auto) 13.5H, Eosinophils (%) (Auto) 2.5, Basophils (%) (Auto) 0.4, Neutrophils # (Auto) 9.6H, Lymphocytes # (Auto) 1.8, Monocytes # (Auto) 1.9H, Eosinophils # (Auto) 0.4, Basophils # (Auto) 0.1, Nucleated Red Blood Cells % (auto) 0.0, Anion Gap 7L, Glomerular Filtration Rate 48.2, Calcium Level 8.4L, Magnesium Level 2.1, Total Bilirubin 0.4, Aspartate Amino Transf (AST/SGOT) 39H, Alanine Aminotransferase (ALT/SGPT) 40, Alkaline Phosphatase 87, Total Protein 5.4L, Albumin 2.2L, Albumin/Globulin Ratio 0.7L CBC/BMP Laboratory Tests 03/21/21 05:34 Microbiology Microbiology 03/16/21 Respiratory Virus Panel (PCR) (SUKUMAR) - Final, Complete 03/16/21 Blood Culture - Preliminary, Resulted No Growth after 72 hours. All specime... 03/16/21 Blood Culture - Preliminary, Resulted No Growth after 72 hours. All specime... Discharge Medications Scheduled Brimonidine Tartrate/Timolol (Combigan 0.2%-0.5% Eye Drops) 5 Ml Drops, 1 DROP OU BID, (Reported) Cyanocobalamin (Vitamin B-12) (Vitamin B-12) 1,000 Mcg Tablet, 1,000 MCG PO DAILY, (Reported) Empagliflozin (Jardiance) 25 Mg Tablet, 25 MG PO DAILY, (Reported) Escitalopram Oxalate (Lexapro) 10 Mg Tablet, 10 MG PO DAILY, (Reported) Furosemide (Lasix) 20 Mg Tablet, 1 TAB PO DAILY Glipizide (Glipizide) 10 Mg Tablet, 1 TAB PO BID Insulin Glargine,Hum.rec.anlog (Lantus Solostar) 100 Unit/1 Ml Insuln.pen, 8 UNITS SC DAILY Levothyroxine Sodium (Levothyroxine Sodium) 25 Mcg Tablet, 12.5 MCG PO DAILY, (Reported) TAKES WITH 200 MCG TAB FOR 212.5 MCG TOTAL DOSE Levothyroxine Sodium (Levothyroxine) 200 Mcg Capsule, 200 MCG PO DAILY, (Reported) TAKES WITH 12.5 MCG HALF-TAB FOR 212.5 MCG TOTAL DOSE Meloxicam (Meloxicam) 7.5 Mg Tablet, 7.5 MG PO DAILY, (Reported) Mirabegron (Myrbetriq) 25 Mg Tab.er.24h, 25 MG PO DAILY, (Reported) Rosuvastatin Calcium (Crestor) 10 Mg Tablet, 40 MG PO QHS Valsartan (Valsartan) 40 Mg Tablet, 1 TAB PO DAILY Scheduled PRN Acetaminophen (Acetaminophen) 325 Mg Tablet, 325 MG PO DAILY PRN for PAIN LEVEL 1-4, (Reported) Famotidine (Famotidine) 20 Mg Tablet, 20 MG PO QHS PRN for HEARTBURN, (Reported) Ipratropium/Albuterol Sulfate (Combivent Respimat 20-100 Mcg) 4 Gm Mist.inhal, 1 PUFF INH QID PRN for SHORTNESS OF BREATH, (Reported) Trazodone HCl (Trazodone HCl) 50 Mg Tablet, 25 MG PO QHS PRN for INSOMNIA, (Reported) Allergies Coded Allergies: hydrocodone (Unverified Adverse Reaction, Mild, "I just act crazy", 01/31/21) oxycodone (Verified Adverse Reaction, Mild, confusion, 11/04/20) morphine (Verified Adverse Reaction, Unknown, 'I GET FORGETFUL, 03/16/21) Chiquita Chen MD Mar 21, 2021 18:30
== END 2021-03-21 15:30 | disposition home health service (06) | DRG 948 ==
LOC: M ED 14:39 → M ED INP 20:19 → M MSPAV 22:37 → OBSVTOIN 03-17 16:30
PROVIDERS: ADMIT Family Medicine; ATTEND Internal Medicine Nephrology
DX: R53.1 Weakness (principal); I10 Essential (primary) hypertension; E78.5 Hyperlipidemia, unspecified; J44.9 Chronic obstructive pulmonary disease, unspecified; G47.33 Obstructive sleep apnea (adult) (pediatric); K21.9 Gastro-esophageal reflux disease without esophagitis; E11.9 Type 2 diabetes mellitus without complications; Z90.81 Acquired absence of spleen; E03.9 Hypothyroidism, unspecified; F41.9 Anxiety disorder, unspecified; F32.A Depression, unspecified; Z96.651 Presence of right artificial knee joint; Z90.79 Acquired absence of other genital organ(s); Z96.643 Presence of artificial hip joint, bilateral; Z87.891 Personal history of nicotine dependence; Z79.4 Long term (current) use of insulin; Z79.899 Other long term (current) drug therapy; Z88.5 Allergy status to narcotic agent; D72.829 Elevated white blood cell count, unspecified; H40.9 Unspecified glaucoma; Z72.3 Lack of physical exercise; N32.81 Overactive bladder; R19.7 Diarrhea, unspecified; G47.00 Insomnia, unspecified; E53.8 Deficiency of other specified B group vitamins; M19.90 Unspecified osteoarthritis, unspecified site

== ENCOUNTER 2021-03-24 13:59 | Inpatient (IN) | payer OTHER, MEDICAID ==
[~2021-03-24] VITALS: Ht 152.4 cm; Wt 88.2 kg
[~2021-03-24 13:59] MED LIST changes: +CRES10TA PO; +CYAN100050 PO; +GLIP10TA PO; +GLIP5TAB8 PO; +LASI20TA3 PO; +OMEP-173 PO; -OMEP-218 PO; +VALS40TA9 PO
[2021-03-24] MEDS ORDERED: NS 1,000 ML IV ONE ×2 (14:40→15:05)
[2021-03-24 14:47] LABS: BASO # 0.1 10^3/uL (0.0-0.2); BASO % 0.4 % (0.0-1.0); EOS # 0.2 10^3/uL (0.0-0.5); EOS % 0.8 % (0.0-3.0); HEMATOCRIT 34.6 % (36.0-47.0); HEMOGLOBIN 10.9 g/dl (12.0-15.5); LYMPH # 1.6 10^3/uL (1.5-5.0); LYMPH % 8.7 % (24.0-44.0); MEAN CORPUSCULAR HEMOGLOBIN 31.7 pg (27.0-33.0); MEAN CORPUSCULAR HGB CONC 31.5 g/dl (32.0-36.5); MEAN CORPUSCULAR VOLUME 100.6 fl (80.0-96.0); MONO # 1.4 10^3/uL (0.0-0.8); MONO % 7.9 % (2.0-8.0); NEUTROPHILS # 14.8 10^3/uL (1.5-8.5); NEUTROPHILS % 81.5 % (36.0-66.0); PLATELET COUNT, AUTOMATED 551 10^3/uL (150-450); RED BLOOD COUNT 3.44 10^6/uL (4.00-5.40); WHITE BLOOD COUNT 18.2 10^3/uL (4.0-10.0)
[2021-03-24] MEDS ORDERED: cefTRIAXone SOD 2 GM in D5W MINI-BAG PLUS 50 ML IV ONE (15:05)
[2021-03-24 15:10] LABS: CK-MB VALUE MASS 5.3 NG/ML (<3.6); CPK CREATINE PHOSPHOKINASE 817 U/L (26-192); MB/CK RELATIVE INDEX 0.65 (< OR =4); TROPONIN I < 0.02 NG/ML (< 0.10)
[2021-03-24 15:15] LABS: ALBUMIN 2.9 GM/DL (3.2-5.2); BILIRUBIN,DIRECT 0.2 MG/DL (0.0-0.2); BILIRUBIN,TOTAL 0.9 MG/DL (0.2-1.0)
[2021-03-24 15:19] LABS: CALCIUM LEVEL 9.3 MG/DL (8.8-10.2); CREATININE FOR GFR 1.89 MG/DL (0.55-1.30); GLOMERULAR FILTRATION RATE 28.2 (>45); POTASSIUM SERUM 3.1 MEQ/L (3.5-5.1)
[2021-03-24] MEDS ORDERED: HEPARIN DRIP 25,000 UNITS in IV 1 EA IV SCH (15:55)
[2021-03-24] MEDS ORDERED: DEXTROSE 50% 50 ML SYRINGE IV PRN (15:55)
[2021-03-24] MEDS ORDERED: GLUCOSE 4GM CHEW TABLET PO PRN (15:55)
[2021-03-24] MEDS ORDERED: GLUCAGON INJ 1MG VIAL SC PRN (15:55)
[2021-03-24] MEDS ORDERED: POTASSIUM CHLORIDE 10MEQ SR TABLET PO ONE (16:00)
[2021-03-24 16:16] LABS: APPEARANCE, URINE HAZY (CLEAR); BACTERIA, URINE AUTO NEGATIVE (NEGATIVE); BILIRUBIN, URINE AUTO NEGATIVE (NEGATIVE); BLOOD, URINE BLOOD 1+ (NEGATIVE); COLOR, URINE YELLOW (YELLOW); GLUCOSE, URINE (UA) AUTO NEGATIVE (NEGATIVE); KETONE, URINE AUTO NEGATIVE (NEGATIVE); LEUKOCYTE ESTERASE, URINE AUTO NEGATIVE (NEGATIVE); NITRITE, URINE AUTO NEGATIVE (NEGATIVE); PROTEIN, URINE AUTO 2+ mg/dL (NEGATIVE); RBC, URINE AUTO 1 /HPF (0-3); SPECIFIC GRAVITY URINE AUTO 1.008 (1.002-1.035); SQUAMOUS EPITHELIAL CELL UR AU 0 /HPF (0-6); UROBILINOGEN, URINE AUTO 0.2 mg/dL (0.0-2.0); WBC, URINE AUTO 3 /HPF (0-3)
[2021-03-24 16:20] LABS: INR 1.03; PARTIAL THROMBOPLASTIN TIME 27.4 SECONDS (25.9-37.0); PROTHROMBIN TIME 13.9 SECONDS (12.7-14.5)
[2021-03-24 16:44] LABS: RSV AMPLIFICATION NEGATIVE (NEGATIVE)
[2021-03-24] MEDS ORDERED: LANTINJ4 SC (17:00)
[2021-03-24] MEDS ORDERED: VALS40TA9 PO (17:00)
[2021-03-24] MEDS ORDERED: ROSU40TA4 PO (17:00)
[2021-03-24] MEDS ORDERED: GLIP10TA6 PO (17:00)
[2021-03-24] MEDS ORDERED: FURO20TA2 PO (17:00)
[2021-03-24] MEDS ORDERED: HOME MED LIST COMPLETE! XX SCH (17:05)
[2021-03-24 17:06] LABS: D-DIMER QUANT > 4000 ng/ml (<500)
[2021-03-24] MEDS: NS 1,000 ML IV SCH (17:09)
[2021-03-24] MEDS: HumaLOG INSULIN (NovoLOG) PER UNIT SC SCH ×2 (17:30→20:59)
[2021-03-24 18:19] VITALS: BP 123/53
[2021-03-24 20:00] VITALS: BP 120/58
[2021-03-25] VITALS (8 sets, daily range): BP systolic 116–140; BP diastolic 43–62
[2021-03-25] MEDS: HEPARIN SOD (PORCINE) 5000UNITS/ML 1ML VIAL/SYRINGE IV PRN ×2 (00:27→10:47)
[2021-03-25 00:32] LABS: CALCIUM LEVEL 5.3 MG/DL (8.8-10.2); CREATININE FOR GFR 1.11 MG/DL (0.55-1.30); GLOMERULAR FILTRATION RATE 52.2 (>45); POTASSIUM SERUM 2.5 MEQ/L (3.5-5.1)
[2021-03-25] MEDS: NS 1,000 ML IV SCH ×3 (00:42→18:17)
[2021-03-25] MEDS ORDERED: MAG SULF 1GM/100ML (MAG RUN) 1 GM in IV 1 EA IV ONE (01:00)
[2021-03-25] MEDS ORDERED: POTASSIUM CHLORIDE 10MEQ SR TABLET PO SCH (01:00)
[2021-03-25 01:21] LABS: MAGNESIUM LEVEL 1.3 MG/DL (1.8-2.4)
[2021-03-25 01:45] LABS: VENOUS BASE EXCESS 2.2 (-2.0-2.0); VENOUS HCO3 27.8 MEQ/L (23.0-27.0); VENOUS O2 SATURATION 56.2 % (60.0-80.0); VENOUS PARTIAL PRESSURE CO2 47.8 mmHg (38.0-50.0); VENOUS PARTIAL PRESSURE O2 30.6 mmHg (30.0-50.0); VENOUS PH 7.382 UNITS (7.330-7.430); VENOUS STANDARD HCO3 25.7 MEQ/L; VENOUS TOTAL CO2 29.2 MEQ/L (24.0-28.0)
[2021-03-25] MEDS ORDERED: COMBIVENT RESPIMAT 100-20MCG INHALER 4GM INH PRN (01:50)
[2021-03-25] MEDS ORDERED: CALCIUM CARBONATE 500 MG CHEW U/D PO ONE ×3 (01:50→04:40)
[2021-03-25] MEDS: KCL 10MEQ/100ML SWI (KRUN) 10 MEQ in IV 1 EA IV SCH ×2 (02:14→05:36)
[2021-03-25] MEDS: ROSUVASTATIN 10 MG TAB (CRESTOR) PO SCH ×2 (02:16→21:46)
[2021-03-25 03:54] LABS: PHOSPHORUS LEVEL 3.2 MG/DL (2.5-4.9); THYROID STIMULATING HORMONE 2.11 uIU/ML (0.358-3.740); URIC ACID 6.2 MG/DL (2.6-6.0)
[2021-03-25] MEDS ORDERED: CALCIUM GLUCONATE 1,000 MG in D5W MINI-BAG PLUS 100 ML IV SCH (04:00)
[2021-03-25 04:13] LABS: CALCIUM LEVEL 7.7 MG/DL (8.8-10.2); CREATININE FOR GFR 1.76 MG/DL (0.55-1.30); GLOMERULAR FILTRATION RATE 30.7 (>45); POTASSIUM SERUM 3.8 MEQ/L (3.5-5.1)
[2021-03-25] MEDS: TIMOLOL MALEATE 0.5% OPHTH SOLN 5 ML OU SCH ×3 (05:37→21:50)
[2021-03-25] MEDS: BRIMONIDINE 0.1% OPHTH SOLN 5 ML OU SCH ×3 (05:38→21:50)
[2021-03-25 05:40] LABS: MEAN CORPUSCULAR HEMOGLOBIN 31.4 pg (27.0-33.0); MEAN CORPUSCULAR HGB CONC 30.7 g/dl (32.0-36.5); MEAN CORPUSCULAR VOLUME 102.5 fl (80.0-96.0); RED BLOOD COUNT 2.83 10^6/uL (4.00-5.40); WHITE BLOOD COUNT 15.5 10^3/uL (4.0-10.0)
[2021-03-25 05:48] LABS: HEMOGLOBIN 8.9 g/dl (12.0-15.5)
[2021-03-25 05:49] LABS: PLATELET COUNT, AUTOMATED 398 10^3/uL (150-450)
[2021-03-25 06:07] LABS: ALBUMIN 2.1 GM/DL (3.2-5.2); BILIRUBIN,TOTAL 0.5 MG/DL (0.2-1.0); CALCIUM LEVEL 8.1 MG/DL (8.8-10.2); CREATININE FOR GFR 1.63 MG/DL (0.55-1.30); GLOMERULAR FILTRATION RATE 33.5 (>45); POTASSIUM SERUM 4.5 MEQ/L (3.5-5.1); TOTAL PROTEIN 5.4 GM/DL (6.4-8.2)
[2021-03-25] MEDS: LEVOTHYROXINE 100MCG TABLET (0.1MG) PO SCH (06:15)
[2021-03-25] MEDS: LEVOTHYROXINE 25MCG TABLET (0.025MG) PO SCH (06:15)
[2021-03-25] MEDS: ESCITALOPRAM OXALATE 10 MG TAB (LEXAPRO) PO SCH (08:04)
[2021-03-25] MEDS: HumaLOG INSULIN (NovoLOG) PER UNIT SC SCH ×4 (08:05→21:00)
[2021-03-25] MEDS: LEVEMIR (INSULIN DETEMIR) 1 UNITS/0.01ML SC SCH (08:05)
[2021-03-25 10:42] LABS: URIC ACID 6.3 MG/DL (2.6-6.0)
[2021-03-25] MEDS ORDERED: FAMOTIDINE 20 MG TAB PO PRN (11:40)
[2021-03-25] MEDS: VALSARTAN 40MG TABLET (DIOVAN) PO SCH (12:34)
[2021-03-25 16:54] LABS: INR 1.03; PROTHROMBIN TIME 13.9 SECONDS (12.7-14.5)
[2021-03-25 16:56] LABS: PARTIAL THROMBOPLASTIN TIME 79.3 SECONDS (25.9-37.0)
[2021-03-25] MEDS: traZODone 50 MG TAB PO PRN (21:53)
[2021-03-26 06:00] VITALS: BP 125/48
[2021-03-26 06:14] LABS: HEMATOCRIT 29.2 % (36.0-47.0); HEMOGLOBIN 9.1 g/dl (12.0-15.5); MEAN CORPUSCULAR HEMOGLOBIN 31.8 pg (27.0-33.0); MEAN CORPUSCULAR HGB CONC 31.2 g/dl (32.0-36.5); MEAN CORPUSCULAR VOLUME 102.1 fl (80.0-96.0); PLATELET COUNT, AUTOMATED 470 10^3/uL (150-450); RED BLOOD COUNT 2.86 10^6/uL (4.00-5.40); WHITE BLOOD COUNT 13.4 10^3/uL (4.0-10.0)
[2021-03-26] MEDS: LEVOTHYROXINE 100MCG TABLET (0.1MG) PO SCH (06:25)
[2021-03-26] MEDS: NS 1,000 ML IV SCH ×2 (06:26→19:17)
[2021-03-26] MEDS: LEVOTHYROXINE 25MCG TABLET (0.025MG) PO SCH (06:26)
[2021-03-26 07:13] LABS: BILIRUBIN,TOTAL 0.5 MG/DL (0.2-1.0); CALCIUM LEVEL 7.9 MG/DL (8.8-10.2); CREATININE FOR GFR 1.57 MG/DL (0.55-1.30)
[2021-03-26] MEDS: VALSARTAN 40MG TABLET (DIOVAN) PO SCH (09:25)
[2021-03-26] MEDS: ESCITALOPRAM OXALATE 10 MG TAB (LEXAPRO) PO SCH (09:25)
[2021-03-26] MEDS: HumaLOG INSULIN (NovoLOG) PER UNIT SC SCH ×4 (09:26→21:00)
[2021-03-26] MEDS: LEVEMIR (INSULIN DETEMIR) 1 UNITS/0.01ML SC SCH (09:26)
[2021-03-26] MEDS: TIMOLOL MALEATE 0.5% OPHTH SOLN 5 ML OU SCH ×2 (09:27→21:05)
[2021-03-26] MEDS: BRIMONIDINE 0.1% OPHTH SOLN 5 ML OU SCH ×2 (09:27→21:05)
[2021-03-26 09:59] LABS: TOTAL 25(OH) VITAMIN D 30.2 NG/ML (30.0-100.0)
[2021-03-26 10:00] LABS: PTH INTACT 99.5 PG/ML (18.5-88.0)
[2021-03-26 14:00] VITALS: BP 143/55
[2021-03-26] MEDS ORDERED: CALCIUM CARBONATE 500 MG CHEW U/D PO PRN (16:55)
[2021-03-26] MEDS: APIXABAN 5 MG TAB (ELIQUIS) PO SCH (18:01)
[2021-03-26] MEDS ORDERED: VITAMIN D 50,000 UNITS CAPSULE (ERGOCALCIFEROL 1.25MG) PO ONE (20:00)
[2021-03-26] MEDS ORDERED: HEPARIN SOD (PORCINE) 5000UNITS/ML 1ML VIAL/SYRINGE SQ SCH (21:00)
[2021-03-26] MEDS: ROSUVASTATIN 10 MG TAB (CRESTOR) PO SCH (21:05)
[2021-03-26 22:00] VITALS: BP 131/51
[2021-03-27] MEDS: NS 1,000 ML IV SCH ×2 (05:13→20:00)
[2021-03-27] MEDS: LEVOTHYROXINE 100MCG TABLET (0.1MG) PO SCH (05:19)
[2021-03-27] MEDS: LEVOTHYROXINE 25MCG TABLET (0.025MG) PO SCH (05:20)
[2021-03-27 06:21] LABS: HEMATOCRIT 29.5 % (36.0-47.0); HEMOGLOBIN 9.1 g/dl (12.0-15.5); MEAN CORPUSCULAR HEMOGLOBIN 31.4 pg (27.0-33.0); MEAN CORPUSCULAR HGB CONC 30.8 g/dl (32.0-36.5); MEAN CORPUSCULAR VOLUME 101.7 fl (80.0-96.0); PLATELET COUNT, AUTOMATED 466 10^3/uL (150-450); WHITE BLOOD COUNT 12.2 10^3/uL (4.0-10.0)
[2021-03-27 06:44] LABS: ALBUMIN 2.1 GM/DL (3.2-5.2); BILIRUBIN,TOTAL 0.5 MG/DL (0.2-1.0); CALCIUM LEVEL 8.4 MG/DL (8.8-10.2); CREATININE FOR GFR 1.31 MG/DL (0.55-1.30); GLOMERULAR FILTRATION RATE 43.1 (>45); POTASSIUM SERUM 4.1 MEQ/L (3.5-5.1); TOTAL PROTEIN 5.2 GM/DL (6.4-8.2)
[2021-03-27 08:00] VITALS: BP 142/58
[2021-03-27] MEDS: ESCITALOPRAM OXALATE 10 MG TAB (LEXAPRO) PO SCH (08:53)
[2021-03-27] MEDS: TIMOLOL MALEATE 0.5% OPHTH SOLN 5 ML OU SCH ×2 (08:54→20:45)
[2021-03-27] MEDS: BRIMONIDINE 0.1% OPHTH SOLN 5 ML OU SCH ×2 (08:54→20:46)
[2021-03-27] MEDS: VALSARTAN 40MG TABLET (DIOVAN) PO SCH (08:54)
[2021-03-27] MEDS: HumaLOG INSULIN (NovoLOG) PER UNIT SC SCH ×4 (09:12→20:14)
[2021-03-27] MEDS: APIXABAN 5 MG TAB (ELIQUIS) PO SCH ×2 (09:12→20:43)
[2021-03-27] MEDS: LEVEMIR (INSULIN DETEMIR) 1 UNITS/0.01ML SC SCH (09:12)
[2021-03-27 14:00] VITALS: BP 116/45
[2021-03-27 14:10] VITALS: BP 131/51
[2021-03-27] MEDS: ROSUVASTATIN 10 MG TAB (CRESTOR) PO SCH (20:43)
[2021-03-27] MEDS: traZODone 50 MG TAB PO PRN (20:45)
[2021-03-27 22:00] VITALS: BP 131/82
[2021-03-28] MEDS: LEVOTHYROXINE 100MCG TABLET (0.1MG) PO SCH (05:35)
[2021-03-28] MEDS: LEVOTHYROXINE 25MCG TABLET (0.025MG) PO SCH (05:36)
[2021-03-28 05:37] VITALS: BP 115/43
[2021-03-28 08:13] LABS: HEMATOCRIT 28.4 % (36.0-47.0); HEMOGLOBIN 8.8 g/dl (12.0-15.5); MEAN CORPUSCULAR HEMOGLOBIN 31.7 pg (27.0-33.0); MEAN CORPUSCULAR VOLUME 102.2 fl (80.0-96.0); PLATELET COUNT, AUTOMATED 426 10^3/uL (150-450); RED BLOOD COUNT 2.78 10^6/uL (4.00-5.40); WHITE BLOOD COUNT 11.8 10^3/uL (4.0-10.0)
[2021-03-28 08:40] LABS: ALBUMIN 1.9 GM/DL (3.2-5.2); BILIRUBIN,TOTAL 0.5 MG/DL (0.2-1.0); CALCIUM LEVEL 8.2 MG/DL (8.8-10.2); CREATININE FOR GFR 1.22 MG/DL (0.55-1.30); GLOMERULAR FILTRATION RATE 46.8 (>45); POTASSIUM SERUM 3.7 MEQ/L (3.5-5.1); TOTAL PROTEIN 5.5 GM/DL (6.4-8.2)
[2021-03-28] MEDS: NS 1,000 ML IV SCH ×2 (08:47→20:04)
[2021-03-28] MEDS: HumaLOG INSULIN (NovoLOG) PER UNIT SC SCH ×4 (09:17→21:00)
[2021-03-28] MEDS: ESCITALOPRAM OXALATE 10 MG TAB (LEXAPRO) PO SCH (09:18)
[2021-03-28] MEDS: APIXABAN 5 MG TAB (ELIQUIS) PO SCH ×2 (09:19→20:06)
[2021-03-28] MEDS: VALSARTAN 40MG TABLET (DIOVAN) PO SCH (09:22)
[2021-03-28] MEDS: TIMOLOL MALEATE 0.5% OPHTH SOLN 5 ML OU SCH ×2 (09:23→20:03)
[2021-03-28] MEDS: LEVEMIR (INSULIN DETEMIR) 1 UNITS/0.01ML SC SCH (09:23)
[2021-03-28] MEDS: BRIMONIDINE 0.1% OPHTH SOLN 5 ML OU SCH ×2 (09:23→20:08)
[2021-03-28] MEDS: ACETAMINOPHEN TAB 650MG DOSE (2X325MG) PO PRN ×2 (10:11→20:25)
[2021-03-28] MEDS: ROSUVASTATIN 10 MG TAB (CRESTOR) PO SCH (20:06)
[2021-03-28] MEDS: traZODone 50 MG TAB PO PRN (20:25)
[2021-03-29] MEDS: LEVOTHYROXINE 25MCG TABLET (0.025MG) PO SCH (05:30)
[2021-03-29] MEDS: LEVOTHYROXINE 100MCG TABLET (0.1MG) PO SCH (05:30)
[2021-03-29] MEDS: ACETAMINOPHEN TAB 650MG DOSE (2X325MG) PO PRN (05:31)
[2021-03-29 06:00] VITALS: BP 148/60
[2021-03-29 07:21] LABS: HEMATOCRIT 27.9 % (36.0-47.0); HEMOGLOBIN 8.5 g/dl (12.0-15.5); MEAN CORPUSCULAR HEMOGLOBIN 31.1 pg (27.0-33.0); MEAN CORPUSCULAR HGB CONC 30.5 g/dl (32.0-36.5); MEAN CORPUSCULAR VOLUME 102.2 fl (80.0-96.0); PLATELET COUNT, AUTOMATED 451 10^3/uL (150-450); RED BLOOD COUNT 2.73 10^6/uL (4.00-5.40); WHITE BLOOD COUNT 10.7 10^3/uL (4.0-10.0)
[2021-03-29 07:50] LABS: ALBUMIN 1.9 GM/DL (3.2-5.2); BILIRUBIN,TOTAL 0.5 MG/DL (0.2-1.0); CALCIUM LEVEL 7.9 MG/DL (8.8-10.2); CREATININE FOR GFR 1.24 MG/DL (0.55-1.30); GLOMERULAR FILTRATION RATE 45.9 (>45); TOTAL PROTEIN 4.9 GM/DL (6.4-8.2)
[2021-03-29] MEDS: ESCITALOPRAM OXALATE 10 MG TAB (LEXAPRO) PO SCH (08:32)
[2021-03-29] MEDS: APIXABAN 5 MG TAB (ELIQUIS) PO SCH ×2 (08:32→20:19)
[2021-03-29] MEDS: VALSARTAN 40MG TABLET (DIOVAN) PO SCH (08:33)
[2021-03-29] MEDS: HumaLOG INSULIN (NovoLOG) PER UNIT SC SCH ×4 (08:33→20:09)
[2021-03-29] MEDS: TIMOLOL MALEATE 0.5% OPHTH SOLN 5 ML OU SCH ×2 (08:34→20:24)
[2021-03-29] MEDS: NS 1,000 ML IV SCH (08:34)
[2021-03-29] MEDS: LEVEMIR (INSULIN DETEMIR) 1 UNITS/0.01ML SC SCH (08:34)
[2021-03-29] MEDS: BRIMONIDINE 0.1% OPHTH SOLN 5 ML OU SCH ×2 (08:34→20:09)
[2021-03-29] MEDS: ROSUVASTATIN 10 MG TAB (CRESTOR) PO SCH (20:19)
[2021-03-29] MEDS: traZODone 50 MG TAB PO PRN (20:22)
[2021-03-30] MEDS: LEVOTHYROXINE 25MCG TABLET (0.025MG) PO SCH (05:35)
[2021-03-30] MEDS: LEVOTHYROXINE 100MCG TABLET (0.1MG) PO SCH (05:37)
[2021-03-30 06:00] VITALS: BP 153/70
[2021-03-30] MEDS: APIXABAN 5 MG TAB (ELIQUIS) PO SCH ×2 (09:12→20:43)
[2021-03-30] MEDS: ESCITALOPRAM OXALATE 10 MG TAB (LEXAPRO) PO SCH (09:12)
[2021-03-30] MEDS: HumaLOG INSULIN (NovoLOG) PER UNIT SC SCH ×4 (09:12→20:43)
[2021-03-30] MEDS: BRIMONIDINE 0.1% OPHTH SOLN 5 ML OU SCH ×2 (09:12→20:44)
[2021-03-30] MEDS: LEVEMIR (INSULIN DETEMIR) 1 UNITS/0.01ML SC SCH (09:12)
[2021-03-30] MEDS: TIMOLOL MALEATE 0.5% OPHTH SOLN 5 ML OU SCH ×2 (09:13→20:44)
[2021-03-30] MEDS: FUROSEMIDE 20 MG TAB PO SCH (10:03)
[2021-03-30] MEDS: VALSARTAN 40MG TABLET (DIOVAN) PO SCH (10:03)
[2021-03-30] MEDS: ACETAMINOPHEN TAB 650MG DOSE (2X325MG) PO PRN (11:56)
[2021-03-30] MEDS: ROSUVASTATIN 10 MG TAB (CRESTOR) PO SCH (20:43)
[2021-03-31] MEDS: LEVOTHYROXINE 25MCG TABLET (0.025MG) PO SCH (05:35)
[2021-03-31] MEDS: LEVOTHYROXINE 100MCG TABLET (0.1MG) PO SCH (05:35)
[2021-03-31 06:00] VITALS: BP 141/65
[2021-03-31] MEDS: HumaLOG INSULIN (NovoLOG) PER UNIT SC SCH ×4 (09:00→21:00)
[2021-03-31] MEDS: LEVEMIR (INSULIN DETEMIR) 1 UNITS/0.01ML SC SCH (09:00)
[2021-03-31] MEDS: APIXABAN 5 MG TAB (ELIQUIS) PO SCH ×2 (09:01→22:03)
[2021-03-31] MEDS: VALSARTAN 40MG TABLET (DIOVAN) PO SCH (09:01)
[2021-03-31] MEDS: TIMOLOL MALEATE 0.5% OPHTH SOLN 5 ML OU SCH ×2 (09:02→22:04)
[2021-03-31] MEDS: BRIMONIDINE 0.1% OPHTH SOLN 5 ML OU SCH ×2 (09:02→22:03)
[2021-03-31] MEDS: ESCITALOPRAM OXALATE 10 MG TAB (LEXAPRO) PO SCH (09:02)
[2021-03-31] MEDS: FUROSEMIDE 20 MG TAB PO SCH (09:02)
[2021-03-31] MEDS: ACETAMINOPHEN TAB 650MG DOSE (2X325MG) PO PRN (11:24)
[2021-03-31] MEDS: ROSUVASTATIN 10 MG TAB (CRESTOR) PO SCH (22:03)
[2021-04-01] MEDS: LEVOTHYROXINE 25MCG TABLET (0.025MG) PO SCH (05:21)
[2021-04-01] MEDS: LEVOTHYROXINE 100MCG TABLET (0.1MG) PO SCH (05:21)
[2021-04-01 06:55] LABS: BASO # 0.1 10^3/uL (0.0-0.2); BASO % 0.7 % (0.0-1.0); EOS # 0.4 10^3/uL (0.0-0.5); EOS % 3.5 % (0.0-3.0); HEMATOCRIT 29.5 % (36.0-47.0); HEMOGLOBIN 9.1 g/dl (12.0-15.5); LYMPH # 1.8 10^3/uL (1.5-5.0); LYMPH % 17.1 % (24.0-44.0); MEAN CORPUSCULAR HEMOGLOBIN 31.1 pg (27.0-33.0); MEAN CORPUSCULAR HGB CONC 30.8 g/dl (32.0-36.5); MEAN CORPUSCULAR VOLUME 100.7 fl (80.0-96.0); MONO # 1.2 10^3/uL (0.0-0.8); MONO % 11.8 % (2.0-8.0); NEUTROPHILS # 6.9 10^3/uL (1.5-8.5); NEUTROPHILS % 66.4 % (36.0-66.0); PLATELET COUNT, AUTOMATED 471 10^3/uL (150-450); RED BLOOD COUNT 2.93 10^6/uL (4.00-5.40); WHITE BLOOD COUNT 10.4 10^3/uL (4.0-10.0)
[2021-04-01 07:22] LABS: ALBUMIN 2.2 GM/DL (3.2-5.2); BILIRUBIN,TOTAL 0.6 MG/DL (0.2-1.0); CALCIUM LEVEL 8.8 MG/DL (8.8-10.2); CREATININE FOR GFR 1.39 MG/DL (0.55-1.30); GLOMERULAR FILTRATION RATE 40.3 (>45); POTASSIUM SERUM 3.2 MEQ/L (3.5-5.1)
[2021-04-01] MEDS: HumaLOG INSULIN (NovoLOG) PER UNIT SC SCH ×4 (07:55→20:13)
[2021-04-01] MEDS: LEVEMIR (INSULIN DETEMIR) 1 UNITS/0.01ML SC SCH (07:56)
[2021-04-01] MEDS: FUROSEMIDE 20 MG TAB PO SCH (07:56)
[2021-04-01] MEDS: ESCITALOPRAM OXALATE 10 MG TAB (LEXAPRO) PO SCH (07:56)
[2021-04-01] MEDS: APIXABAN 5 MG TAB (ELIQUIS) PO SCH ×2 (07:56→20:24)
[2021-04-01] MEDS: BRIMONIDINE 0.1% OPHTH SOLN 5 ML OU SCH ×2 (07:56→20:30)
[2021-04-01] MEDS: TIMOLOL MALEATE 0.5% OPHTH SOLN 5 ML OU SCH ×2 (07:57→20:22)
[2021-04-01] MEDS: VALSARTAN 40MG TABLET (DIOVAN) PO SCH (07:59)
[2021-04-01] MEDS: POTASSIUM CHLORIDE 10MEQ SR TABLET PO SCH (10:06)
[2021-04-01] MEDS ORDERED: POTASSIUM CHLORIDE 10MEQ SR TABLET PO ONE (12:00)
[2021-04-01 15:35] LABS: CALCIUM LEVEL 7.9 MG/DL (8.8-10.2); CREATININE FOR GFR 1.41 MG/DL (0.55-1.30); GLOMERULAR FILTRATION RATE 39.6 (>45); POTASSIUM SERUM 3.7 MEQ/L (3.5-5.1)
[2021-04-01] MEDS: ROSUVASTATIN 10 MG TAB (CRESTOR) PO SCH (20:23)
[2021-04-01] MEDS: traZODone 50 MG TAB PO PRN (20:26)
[2021-04-02 06:00] VITALS: BP 143/62
[2021-04-02] MEDS: LEVOTHYROXINE 100MCG TABLET (0.1MG) PO SCH (06:38)
[2021-04-02] MEDS: LEVOTHYROXINE 25MCG TABLET (0.025MG) PO SCH (06:39)
[2021-04-02] MEDS: HumaLOG INSULIN (NovoLOG) PER UNIT SC SCH ×4 (07:30→21:00)
[2021-04-02] MEDS: BRIMONIDINE 0.1% OPHTH SOLN 5 ML OU SCH ×2 (08:33→21:03)
[2021-04-02] MEDS: FUROSEMIDE 20 MG TAB PO SCH (08:33)
[2021-04-02] MEDS: LEVEMIR (INSULIN DETEMIR) 1 UNITS/0.01ML SC SCH (08:33)
[2021-04-02] MEDS: ESCITALOPRAM OXALATE 10 MG TAB (LEXAPRO) PO SCH (08:33)
[2021-04-02] MEDS: VALSARTAN 40MG TABLET (DIOVAN) PO SCH (08:33)
[2021-04-02] MEDS: APIXABAN 5 MG TAB (ELIQUIS) PO SCH ×2 (08:33→21:03)
[2021-04-02] MEDS: POTASSIUM CHLORIDE 10MEQ SR TABLET PO SCH (08:33)
[2021-04-02] MEDS: TIMOLOL MALEATE 0.5% OPHTH SOLN 5 ML OU SCH ×2 (08:33→21:03)
[2021-04-02] MEDS: ROSUVASTATIN 10 MG TAB (CRESTOR) PO SCH (21:03)
[2021-04-03] MEDS: LEVOTHYROXINE 100MCG TABLET (0.1MG) PO SCH (05:16)
[2021-04-03] MEDS: LEVOTHYROXINE 25MCG TABLET (0.025MG) PO SCH (05:16)
[2021-04-03 06:00] VITALS: BP 140/60
[2021-04-03] MEDS: FUROSEMIDE 20 MG TAB PO SCH (09:13)
[2021-04-03] MEDS: POTASSIUM CHLORIDE 10MEQ SR TABLET PO SCH (09:13)
[2021-04-03] MEDS: ESCITALOPRAM OXALATE 10 MG TAB (LEXAPRO) PO SCH (09:13)
[2021-04-03] MEDS: APIXABAN 5 MG TAB (ELIQUIS) PO SCH ×2 (09:13→21:03)
[2021-04-03] MEDS: HumaLOG INSULIN (NovoLOG) PER UNIT SC SCH ×4 (09:14→20:56)
[2021-04-03] MEDS: BRIMONIDINE 0.1% OPHTH SOLN 5 ML OU SCH ×2 (09:14→21:03)
[2021-04-03] MEDS: LEVEMIR (INSULIN DETEMIR) 1 UNITS/0.01ML SC SCH (09:14)
[2021-04-03] MEDS: TIMOLOL MALEATE 0.5% OPHTH SOLN 5 ML OU SCH ×2 (09:15→21:03)
[2021-04-03 09:18] VITALS: BP 138/75
[2021-04-03] MEDS: VALSARTAN 40MG TABLET (DIOVAN) PO SCH (09:18)
[2021-04-03 09:50] LABS: HEMATOCRIT 31.1 % (36.0-47.0); HEMOGLOBIN 9.4 g/dl (12.0-15.5); MEAN CORPUSCULAR HEMOGLOBIN 30.7 pg (27.0-33.0); MEAN CORPUSCULAR HGB CONC 30.2 g/dl (32.0-36.5); MEAN CORPUSCULAR VOLUME 101.6 fl (80.0-96.0); PLATELET COUNT, AUTOMATED 476 10^3/uL (150-450); RED BLOOD COUNT 3.06 10^6/uL (4.00-5.40); WHITE BLOOD COUNT 9.7 10^3/uL (4.0-10.0)
[2021-04-03 10:18] LABS: ALBUMIN 2.6 GM/DL (3.2-5.2); BILIRUBIN,TOTAL 0.6 MG/DL (0.2-1.0); CREATININE FOR GFR 1.4 MG/DL (0.55-1.30); GLOMERULAR FILTRATION RATE 39.9 (>45); POTASSIUM SERUM 4.4 MEQ/L (3.5-5.1); TOTAL PROTEIN 5.8 GM/DL (6.4-8.2)
[2021-04-03] MEDS ORDERED: FUROSEMIDE 20MG/2ML VIAL (J1940) IV ONE (11:00)
[2021-04-03] MEDS ORDERED: PILL CUTTER 1 EACH XX PRN (11:05)
[2021-04-03] MEDS: ROSUVASTATIN 10 MG TAB (CRESTOR) PO SCH (21:02)
[2021-04-03] MEDS ORDERED: TIMO0.5S29 OU (21:34)
[2021-04-03] MEDS ORDERED: FURO20TA2 PO (21:34)
[2021-04-03] MEDS ORDERED: ELIQ5TAB PO (21:34)
[2021-04-03] MEDS ORDERED: POTA-136 PO (21:34)
[2021-04-03] MEDS ORDERED: ACET1TAB55 PO (21:34)
[2021-04-04] MEDS: LEVOTHYROXINE 25MCG TABLET (0.025MG) PO SCH (05:51)
[2021-04-04] MEDS: LEVOTHYROXINE 100MCG TABLET (0.1MG) PO SCH (05:51)
[2021-04-04 06:00] VITALS: BP 142/50
[2021-04-04] MEDS ORDERED: FUROSEMIDE 20 MG TAB PO SCH (09:00)
[2021-04-04] MEDS: LEVEMIR (INSULIN DETEMIR) 1 UNITS/0.01ML SC SCH (09:01)
[2021-04-04] MEDS: HumaLOG INSULIN (NovoLOG) PER UNIT SC SCH ×3 (09:01→16:59)
[2021-04-04] MEDS: TIMOLOL MALEATE 0.5% OPHTH SOLN 5 ML OU SCH (09:02)
[2021-04-04] MEDS: BRIMONIDINE 0.1% OPHTH SOLN 5 ML OU SCH (09:02)
[2021-04-04] MEDS: APIXABAN 5 MG TAB (ELIQUIS) PO SCH (09:02)
[2021-04-04] MEDS: POTASSIUM CHLORIDE 10MEQ SR TABLET PO SCH (09:02)
[2021-04-04] MEDS: ESCITALOPRAM OXALATE 10 MG TAB (LEXAPRO) PO SCH (09:03)
[2021-04-04] MEDS ORDERED: CALC500T61 PO (19:23)
[2021-04-04] MEDS ORDERED: ERGO500029 PO (19:27)
== END 2021-04-04 17:28 | DRG 300 ==
LOC: M ED 13:59 → EDBD 13:59 → M ED INP 15:54 → ENRESERV 16:35 → M PCU 18:06 → M MSPAV 03-25 16:40
PROVIDERS: ADMIT Internal Medicine; ATTEND Internal Medicine
DX: I82.413 Acute embolism and thrombosis of femoral vein, bilateral (principal); M62.82 Rhabdomyolysis; N17.9 Acute kidney failure, unspecified; I82.433 Acute embolism and thrombosis of popliteal vein, bilateral; I12.9 Hypertensive chronic kidney disease with stage 1 through stage 4 chronic kidney disease, or unspecified chronic kidney disease; F32.A Depression, unspecified; E03.9 Hypothyroidism, unspecified; E78.5 Hyperlipidemia, unspecified; E11.22 Type 2 diabetes mellitus with diabetic chronic kidney disease; R53.1 Weakness; N32.81 Overactive bladder; K21.9 Gastro-esophageal reflux disease without esophagitis; E83.42 Hypomagnesemia; D64.9 Anemia, unspecified; E83.51 Hypocalcemia; Z90.81 Acquired absence of spleen; Z96.651 Presence of right artificial knee joint; Z96.643 Presence of artificial hip joint, bilateral; Z87.891 Personal history of nicotine dependence; N18.30 Chronic kidney disease, stage 3 unspecified; E86.0 Dehydration; I95.9 Hypotension, unspecified; Z79.4 Long term (current) use of insulin; Z79.899 Other long term (current) drug therapy; Z79.1 Long term (current) use of non-steroidal anti-inflammatories (NSAID); Z88.5 Allergy status to narcotic agent; R26.81 Unsteadiness on feet; E79.0 Hyperuricemia without signs of inflammatory arthritis and tophaceous disease; Z20.822 Contact with and (suspected) exposure to COVID-19

== ENCOUNTER → 2021-06-29 | Outpatient (REF) | payer MEDICARE, MEDICAID ==
[~2021-06-29] MED LIST changes: +ACET1TAB55 PO; +CALC500T61 PO; +ELIQ5TAB PO; +ERGO500029 PO; +FURO20TA2 PO; +POTA-136 PO; +TIMO0.5S29 OU
== END ==
LOC: M SFHCPLAZ 09:23
PROVIDERS: ATTEND Family Medicine
DX: E11.22 Type 2 diabetes mellitus with diabetic chronic kidney disease (principal); E03.9 Hypothyroidism, unspecified

== ENCOUNTER → 2021-06-29 | Outpatient (CLI) | payer MEDICARE, MEDICAID ==
[2021-06-29 13:57] LABS: HEMOGLOBIN A1c 7.8 %
[2021-06-29 14:03] LABS: CALCIUM LEVEL 9.8 MG/DL (8.8-10.2); CREATININE FOR GFR 1.79 MG/DL (0.55-1.30); FREE T4 1.93 NG/DL (0.76-1.46); GLOMERULAR FILTRATION RATE 30.1 (>45); POTASSIUM SERUM 4.3 MEQ/L (3.5-5.1); THYROID STIMULATING HORMONE 0.026 uIU/ML (0.358-3.740)
[2021-06-29 14:29] LABS: CREATININE, URINE 45.9 MG/DL; MAU/CREAT RATIO 2483.6 MCG/MG (0.0-30.0)
== END ==
LOC: M PLALAB 09:31
PROVIDERS: ATTEND Student in an Organized Health Care Education/Training Program
DX: E11.22 Type 2 diabetes mellitus with diabetic chronic kidney disease (principal); E03.9 Hypothyroidism, unspecified

== ENCOUNTER → 2021-08-27 | Outpatient (REF) | payer MEDICARE, MEDICAID | LOC: M SFHCPLAZ 14:38 | PROVIDERS: ATTEND Family Medicine | DX: E11.22 Type 2 diabetes mellitus with diabetic chronic kidney disease (principal); Z53.9 Procedure and treatment not carried out, unspecified reason ==

== ENCOUNTER → 2021-08-27 | Outpatient (CLI) | payer MEDICARE, MEDICAID ==
[2021-08-27 17:49] LABS: HEMOGLOBIN A1c 5.7 %
[2021-08-27 17:58] LABS: CALCIUM LEVEL 9.7 MG/DL (8.8-10.2); CREATININE FOR GFR 1.93 MG/DL (0.55-1.30); GLOMERULAR FILTRATION RATE 27.6 (>45); POTASSIUM SERUM 4.4 MEQ/L (3.5-5.1)
[2021-08-27 18:35] LABS: CREATININE, URINE 20.5 MG/DL; CREATININE,RANDOM URINE 20.5 MG/DL; MAU/CREAT RATIO 2258.5 MCG/MG (0.0-30.0); TOTAL PROTEIN,RANDOM URINE 61.6 MG/DL (0.0-12.0)
== END ==
LOC: M PLALAB 14:59
PROVIDERS: ATTEND Student in an Organized Health Care Education/Training Program
DX: E11.22 Type 2 diabetes mellitus with diabetic chronic kidney disease (principal)

== ENCOUNTER 2022-01-10 10:31 | Emergency (ER) | payer OTHER, MEDICAID ==
[~2022-01-10] VITALS: Ht 152.4 cm; Wt 82.7 kg
[~2022-01-10 10:31] MED LIST changes: +LEVO1TAB40 PO; -LEVO750T13 PO
[2022-01-10] MEDS ORDERED: FURO20TA2 PO (12:44)
[2022-01-10] MEDS ORDERED: CETI5TAB2 PO (12:44)
[2022-01-10] MEDS ORDERED: XALA0.007 OU (12:44)
[2022-01-10] MEDS ORDERED: LEVE1INJ5 SC ×2 (12:44)
[2022-01-10 13:04] LABS: BASO % 0.2 % (0.0-1.0); EOS # 0.2 10^3/uL (0.0-0.5); EOS % 1.5 % (0.0-3.0); HEMATOCRIT 30.3 % (36.0-47.0); HEMOGLOBIN 9.1 g/dl (12.0-15.5); LYMPH # 1.6 10^3/uL (1.5-5.0); LYMPH % 10.3 % (24.0-44.0); MEAN CORPUSCULAR HEMOGLOBIN 32.2 pg (27.0-33.0); MEAN CORPUSCULAR VOLUME 107.1 fl (80.0-96.0); MONO # 1.2 10^3/uL (0.0-0.8); MONO % 7.5 % (2.0-8.0); NEUTROPHILS # 12.5 10^3/uL (1.5-8.5); NEUTROPHILS % 79.7 % (36.0-66.0); PLATELET COUNT, AUTOMATED 375 10^3/uL (150-450); RED BLOOD COUNT 2.83 10^6/uL (4.00-5.40); WHITE BLOOD COUNT 15.6 10^3/uL (4.0-10.0)
[2022-01-10 13:21] LABS: INR 0.98; PROTHROMBIN TIME 13.3 SECONDS (12.7-14.5)
[2022-01-10 13:22] LABS: PARTIAL THROMBOPLASTIN TIME 23.5 SECONDS (25.9-37.0)
[2022-01-10] MEDS ORDERED: NOVOINJ3 SC (13:30)
[2022-01-10] MEDS ORDERED: NASA1SPR NARES (13:30)
[2022-01-10] MEDS ORDERED: SIMB1SUS OD (13:30)
[2022-01-10 13:40] LABS: CALCIUM LEVEL 9.3 MG/DL (8.8-10.2); CREATININE FOR GFR 1.77 MG/DL (0.55-1.30); GLOMERULAR FILTRATION RATE 30.4 (>45); POTASSIUM SERUM 4.4 MEQ/L (3.5-5.1)
[2022-01-10] MEDS ORDERED: REFR0.5D8 OD (13:44)
[2022-01-10] MEDS ORDERED: ACET1TAB55 PO (13:44)
[2022-01-10] MEDS ORDERED: DEBR6.5S4 AU (13:49)
[2022-01-10] MEDS ORDERED: IPRA0.00 INH (13:51)
[2022-01-10] MEDS ORDERED: HOME MED LIST COMPLETE! XX SCH (13:55)
[2022-01-10] MEDS ORDERED: APIXABAN 5 MG TAB (ELIQUIS) PO ONE (14:40)
[2022-01-10] MEDS ORDERED: ELIQ5TAB PO (15:17)
[2022-01-10 16:38] VITALS: BP 156/70
[2022-01-14 06:33] LABS: DRVV SCREEN 38.3 SEC
[2022-01-14] MEDS ORDERED: LEVO200C PO (12:54)
[2022-01-17 11:08] LABS: ANTI THROMBIN 3 ANTIGEN IMMUNO 126 % (72-124); ANTI THROMBIN 3 FUNCT ACTIVITY 135 % (75-135); CARDIOLIPIN IGA ANTIBODY <9 APL U/mL (0-11); CARDIOLIPIN IGG ANTIBODY <9 GPL U/mL (0-14); CARDIOLIPIN IGM ANTIBODY 14 MPL U/mL (0-12); PHOSPHOLIPIDS LEVEL 203 mg/dL (151-288); PROTEIN C FUNCTIONAL ACTIVITY 132 % (73-180); PROTEIN S FUNCTIONAL ACTIVITY 109 % (63-140)
== END 2022-01-10 17:21 | disposition home or self-care (01) ==
LOC: EDBD 10:31 → M ED 10:31
DX: I82.501 Chronic embolism and thrombosis of unspecified deep veins of right lower extremity (principal); N18.4 Chronic kidney disease, stage 4 (severe); D53.9 Nutritional anemia, unspecified; E11.9 Type 2 diabetes mellitus without complications; E07.9 Disorder of thyroid, unspecified; E78.5 Hyperlipidemia, unspecified; F32.A Depression, unspecified; K21.9 Gastro-esophageal reflux disease without esophagitis; Z88.5 Allergy status to narcotic agent; Z88.8 Allergy status to other drugs, medicaments and biological substances; Z79.899 Other long term (current) drug therapy; Z79.890 Hormone replacement therapy; Z79.4 Long term (current) use of insulin; Z79.01 Long term (current) use of anticoagulants

== ENCOUNTER → 2022-01-23 | Outpatient (REF) | payer OTHER, MEDICAID ==
[~2022-01-23] MED LIST changes: +CETI5TAB2 PO; +DEBR6.5S4 AU; +IPRA0.00 INH; +LEVE1INJ5 SC; +NASA1SPR NARES; +NOVOINJ3 SC; +PRED10TA2 PO; +PRIL20TA2 PO; +REFR0.5D8 OD; +SIMB1SUS OD; +XALA0.007 OU
[2022-01-23 13:10] LABS: CALCIUM LEVEL 9.2 MG/DL (8.8-10.2); CREATININE FOR GFR 1.65 MG/DL (0.55-1.30); GLOMERULAR FILTRATION RATE 32.9 (>45); POTASSIUM SERUM 4.3 MEQ/L (3.5-5.1)
[2022-01-23 13:53] LABS: TOTAL 25(OH) VITAMIN D 31.4 NG/ML (30.0-100.0)
[2022-01-23 14:19] LABS: HEMOGLOBIN A1c 6.6 %
[2022-01-25 15:09] LABS: INSULIN LEVEL 20.1 uIU/mL (2.6-24.9); VITAMIN D 1,25 DIHYDROXY 20.9 pg/mL (24.8-81.5)
== END ==
PROVIDERS: ATTEND Student in an Organized Health Care Education/Training Program
DX: E11.9 Type 2 diabetes mellitus without complications (principal); N17.9 Acute kidney failure, unspecified; E83.51 Hypocalcemia

== ENCOUNTER → 2022-01-30 | Outpatient (REF) | payer OTHER, MEDICAID | PROVIDERS: ATTEND Student in an Organized Health Care Education/Training Program | DX: Z20.822 Contact with and (suspected) exposure to COVID-19 (principal); Z53.8 Procedure and treatment not carried out for other reasons ==

== ENCOUNTER → 2022-02-11 | Outpatient (REF) | payer OTHER, MEDICAID ==
[2022-02-11 10:21] LABS: BASO % 0.1 % (0.0-1.0); EOS % 0.2 % (0.0-3.0); HEMATOCRIT 36.6 % (36.0-47.0); HEMOGLOBIN 10.9 g/dl (12.0-15.5); LYMPH # 2.4 10^3/uL (1.5-5.0); LYMPH % 14.3 % (24.0-44.0); MEAN CORPUSCULAR HEMOGLOBIN 30.4 pg (27.0-33.0); MEAN CORPUSCULAR HGB CONC 29.8 g/dl (32.0-36.5); MEAN CORPUSCULAR VOLUME 101.9 fl (80.0-96.0); MONO # 1.3 10^3/uL (0.0-0.8); NEUTROPHILS # 12.7 10^3/uL (1.5-8.5); NEUTROPHILS % 76.3 % (36.0-66.0); PLATELET COUNT, AUTOMATED 362 10^3/uL (150-450); RED BLOOD COUNT 3.59 10^6/uL (4.00-5.40); WHITE BLOOD COUNT 16.7 10^3/uL (4.0-10.0)
[2022-02-11 11:00] LABS: ALBUMIN 3.4 GM/DL (3.2-5.2); ALT/SGPT 50 U/L (12-78); BILIRUBIN,DIRECT 0.2 MG/DL (0.0-0.2); BILIRUBIN,TOTAL 0.5 MG/DL (0.2-1.0); BLOOD UREA NITROGEN 42 MG/DL (7-18); CALCIUM LEVEL 9.1 MG/DL (8.8-10.2); CARBON DIOXIDE LEVEL 28 MEQ/L (21-32); CHLORIDE LEVEL 108 MEQ/L (98-107); CREATININE FOR GFR 1.63 MG/DL (0.55-1.30); GLOMERULAR FILTRATION RATE 33.4 (>45); GLUCOSE, FASTING 282 MG/DL (70-100); LDH LACTATE DEHYDROGENASE 177 U/L (84-246); SODIUM LEVEL 142 MEQ/L (136-145); TOTAL PROTEIN 6.6 GM/DL (6.4-8.2)
[2022-02-13 13:55] LABS: ALBUMIN 3.74 GM/DL (3.29-5.55); ALBUMIN % 56.6 % (55.8-66.1); ALPHA-1-GLOBULIN % 4.9 % (2.9-4.9); ALPHA-1-GLOBULINS 0.32 GM/DL (0.17-0.41); ALPHA-2-GLOBULINS % 15.1 % (7.1-11.8); BETA-1-GLOBULINS 0.46 GM/DL (0.28-0.60); BETA-1-GLOBULINS % 6.9 % (4.7-7.2); BETA-2-GLOBULINS 0.28 GM/DL (0.19-0.55); BETA-2-GLOBULINS % 4.2 % (3.2-6.5); GAMMA GLOBULIN % 12.3 % (11.1-18.8)
[2022-02-13 13:56] LABS: GAMMA GLOBULINS 0.81 GM/DL (0.65-1.58)
== END ==
PROVIDERS: ATTEND Internal Medicine Hematology & Oncology
DX: D58.9 Hereditary hemolytic anemia, unspecified (principal)

== ENCOUNTER → 2022-03-04 | Outpatient (CLI) | payer OTHER, MEDICAID | LOC: M WHC 13:24 | PROVIDERS: ATTEND Internal Medicine Nephrology | DX: N18.32 Chronic kidney disease, stage 3b (principal) ==

== ENCOUNTER → 2022-03-13 | Outpatient (REF) | payer OTHER, MEDICAID ==
[2022-03-13 10:13] LABS: BASO % 0.3 % (0.0-1.0); EOS # 0.3 10^3/uL (0.0-0.5); EOS % 2.1 % (0.0-3.0); HEMATOCRIT 33.7 % (36.0-47.0); HEMOGLOBIN 9.7 g/dl (12.0-15.5); LYMPH # 1.4 10^3/uL (1.5-5.0); LYMPH % 11.7 % (24.0-44.0); MEAN CORPUSCULAR HEMOGLOBIN 29.8 pg (27.0-33.0); MEAN CORPUSCULAR HGB CONC 28.8 g/dl (32.0-36.5); MEAN CORPUSCULAR VOLUME 103.7 fl (80.0-96.0); MONO % 7.9 % (2.0-8.0); NEUTROPHILS # 9.3 10^3/uL (1.5-8.5); NEUTROPHILS % 76.4 % (36.0-66.0); PLATELET COUNT, AUTOMATED 491 10^3/uL (150-450); RED BLOOD COUNT 3.25 10^6/uL (4.00-5.40); WHITE BLOOD COUNT 12.2 10^3/uL (4.0-10.0)
[2022-03-13 11:32] LABS: ALBUMIN 2.8 GM/DL (3.2-5.2); BILIRUBIN,TOTAL 0.5 MG/DL (0.2-1.0); CREATININE FOR GFR 1.66 MG/DL (0.55-1.30); GLOMERULAR FILTRATION RATE 32.7 (>45); POTASSIUM SERUM 4.1 MEQ/L (3.5-5.1); TOTAL PROTEIN 6.3 GM/DL (6.4-8.2)
== END ==
PROVIDERS: ATTEND Internal Medicine Hematology & Oncology
DX: D59.10 Autoimmune hemolytic anemia, unspecified (principal); Z79.899 Other long term (current) drug therapy

== ENCOUNTER → 2022-03-20 | Outpatient (REF) | payer OTHER, MEDICAID ==
[2022-03-20 10:28] LABS: BASO # 0.1 10^3/uL (0.0-0.2); BASO % 0.7 % (0.0-1.0); EOS # 0.2 10^3/uL (0.0-0.5); EOS % 1.3 % (0.0-3.0); HEMATOCRIT 34.3 % (36.0-47.0); HEMOGLOBIN 10.3 g/dl (12.0-15.5); LYMPH # 1.6 10^3/uL (1.5-5.0); LYMPH % 13.6 % (24.0-44.0); MEAN CORPUSCULAR HEMOGLOBIN 30.2 pg (27.0-33.0); MEAN CORPUSCULAR VOLUME 100.6 fl (80.0-96.0); MONO % 8.2 % (2.0-8.0); NEUTROPHILS # 8.9 10^3/uL (1.5-8.5); NEUTROPHILS % 74.3 % (36.0-66.0); PLATELET COUNT, AUTOMATED 628 10^3/uL (150-450); RED BLOOD COUNT 3.41 10^6/uL (4.00-5.40)
[2022-03-20 11:16] LABS: ALBUMIN 3.1 G/DL (3.2-5.2); CALCIUM LEVEL 9.5 MG/DL (8.3-10.6); CREATININE FOR GFR 1.54 MG/DL (0.55-1.30); GLOMERULAR FILTRATION RATE 35.7 (>45); PHOSPHORUS LEVEL 5.8 MG/DL (2.4-5.1); POTASSIUM SERUM 4.5 MMOL/L (3.5-5.1)
== END ==
PROVIDERS: ATTEND Internal Medicine Nephrology
DX: N17.9 Acute kidney failure, unspecified (principal); N25.81 Secondary hyperparathyroidism of renal origin; D64.9 Anemia, unspecified

== ENCOUNTER → 2022-04-10 | Outpatient (REF) | payer OTHER, MEDICAID ==
[2022-04-10 12:23] LABS: BASO # 0.1 10^3/uL (0.0-0.2); BASO % 0.4 % (0.0-1.0); EOS # 0.2 10^3/uL (0.0-0.5); HEMATOCRIT 37.2 % (36.0-47.0); HEMOGLOBIN 10.9 g/dl (12.0-15.5); LYMPH # 1.2 10^3/uL (1.5-5.0); LYMPH % 7.8 % (24.0-44.0); MEAN CORPUSCULAR HEMOGLOBIN 29.1 pg (27.0-33.0); MEAN CORPUSCULAR HGB CONC 29.3 g/dl (32.0-36.5); MEAN CORPUSCULAR VOLUME 99.5 fl (80.0-96.0); MONO % 6.2 % (2.0-8.0); NEUTROPHILS % 84.1 % (36.0-66.0); PLATELET COUNT, AUTOMATED 346 10^3/uL (150-450); RED BLOOD COUNT 3.74 10^6/uL (4.00-5.40); WHITE BLOOD COUNT 15.5 10^3/uL (4.0-10.0)
[2022-04-10 13:12] LABS: ALBUMIN 3.1 G/DL (3.2-5.2); BILIRUBIN,TOTAL 0.4 MG/DL (0.3-1.2); CREATININE FOR GFR 1.46 MG/DL (0.55-1.30); GLOMERULAR FILTRATION RATE 37.9 (>45); POTASSIUM SERUM 4.5 MMOL/L (3.5-5.1); TOTAL PROTEIN 6.3 G/DL (5.7-8.2)
== END ==
PROVIDERS: ATTEND Internal Medicine Hematology & Oncology
DX: D59.10 Autoimmune hemolytic anemia, unspecified (principal); Z79.899 Other long term (current) drug therapy

== ENCOUNTER → 2022-04-15 | Outpatient (REF) | payer OTHER, MEDICAID ==
[2022-04-15 11:17] LABS: ALBUMIN 3.1 G/DL (3.2-5.2); BILIRUBIN,TOTAL 0.4 MG/DL (0.3-1.2); CHOLESTEROL RISK RATIO 2.6 (<5); CREATININE FOR GFR 1.48 MG/DL (0.55-1.30); FREE T4 2.04 NG/DL (0.89-1.76); GLOMERULAR FILTRATION RATE 37.3 (>45); HDL CHOLESTEROL 59.9 MG/DL (>40); LDL CHOLESTEROL 76.1 MG/DL (<100); POTASSIUM SERUM 4.3 MMOL/L (3.5-5.1); THYROID STIMULATING HORMONE 0.019 uIU/ML (0.55-4.78); TOTAL PROTEIN 6.3 G/DL (5.7-8.2)
[2022-04-15 11:34] LABS: HEMOGLOBIN A1c 9.5 % (4.0-6.0)
== END ==
PROVIDERS: ATTEND Student in an Organized Health Care Education/Training Program
DX: E11.9 Type 2 diabetes mellitus without complications (principal); D58.9 Hereditary hemolytic anemia, unspecified; E78.5 Hyperlipidemia, unspecified

== ENCOUNTER → 2022-05-08 | Outpatient (REF) | payer OTHER, MEDICAID ==
[2022-05-08 11:21] LABS: BASO # 0.1 10^3/uL (0.0-0.2); BASO % 0.4 % (0.0-1.0); EOS # 0.2 10^3/uL (0.0-0.5); EOS % 1.4 % (0.0-3.0); HEMOGLOBIN 11.1 g/dl (12.0-15.5); LYMPH # 1.8 10^3/uL (1.5-5.0); LYMPH % 11.7 % (24.0-44.0); MEAN CORPUSCULAR HEMOGLOBIN 29.7 pg (27.0-33.0); MEAN CORPUSCULAR VOLUME 98.9 fl (80.0-96.0); MONO # 1.1 10^3/uL (0.0-0.8); MONO % 7.4 % (2.0-8.0); NEUTROPHILS # 11.9 10^3/uL (1.5-8.5); NEUTROPHILS % 78.1 % (36.0-66.0); PLATELET COUNT, AUTOMATED 351 10^3/uL (150-450); RED BLOOD COUNT 3.74 10^6/uL (4.00-5.40); WHITE BLOOD COUNT 15.3 10^3/uL (4.0-10.0)
[2022-05-08 11:53] LABS: ALBUMIN 3.3 G/DL (3.2-5.2); BILIRUBIN,TOTAL 0.6 MG/DL (0.3-1.2); CALCIUM LEVEL 9.3 MG/DL (8.3-10.6); CALCIUM LEVEL 9.4 MG/DL (8.3-10.6); CREATININE FOR GFR 1.57 MG/DL (0.55-1.30); GLOMERULAR FILTRATION RATE 34.9 (>45); PHOSPHORUS LEVEL 4.9 MG/DL (2.4-5.1); POTASSIUM SERUM 4.3 MMOL/L (3.5-5.1); TOTAL PROTEIN 6.6 G/DL (5.7-8.2)
== END ==
PROVIDERS: ATTEND Internal Medicine Hematology & Oncology
DX: D59.10 Autoimmune hemolytic anemia, unspecified (principal); Z79.899 Other long term (current) drug therapy

== ENCOUNTER → 2022-05-08 | Outpatient (CLI) | payer OTHER, MEDICAID | LOC: M SLEEP 20:00 | PROVIDERS: ATTEND Physician Assistant | DX: G47.33 Obstructive sleep apnea (adult) (pediatric) (principal) ==

== ENCOUNTER → 2022-05-22 | Outpatient (REF) | payer OTHER, MEDICAID ==
[2022-05-22 11:01] LABS: HEMATOCRIT 37.5 % (36.0-47.0); MEAN CORPUSCULAR HEMOGLOBIN 29.9 pg (27.0-33.0); MEAN CORPUSCULAR HGB CONC 29.3 g/dl (32.0-36.5); MEAN CORPUSCULAR VOLUME 101.9 fl (80.0-96.0); PLATELET COUNT, AUTOMATED 328 10^3/uL (150-450); RED BLOOD COUNT 3.68 10^6/uL (4.00-5.40); WHITE BLOOD COUNT 13.1 10^3/uL (4.0-10.0)
== END ==
PROVIDERS: ATTEND Nurse Practitioner
DX: D59.10 Autoimmune hemolytic anemia, unspecified (principal); Z79.899 Other long term (current) drug therapy

== ENCOUNTER → 2022-05-29 | Outpatient (REF) | payer OTHER, MEDICAID ==
[2022-05-29 10:16] LABS: BASO # 0.1 10^3/uL (0.0-0.2); BASO % 0.5 % (0.0-1.0); EOS # 0.3 10^3/uL (0.0-0.5); EOS % 1.9 % (0.0-3.0); HEMATOCRIT 37.8 % (36.0-47.0); HEMOGLOBIN 11.1 g/dl (12.0-15.5); LYMPH # 2.7 10^3/uL (1.5-5.0); LYMPH % 20.6 % (24.0-44.0); MEAN CORPUSCULAR HEMOGLOBIN 30.2 pg (27.0-33.0); MEAN CORPUSCULAR HGB CONC 29.4 g/dl (32.0-36.5); MONO # 0.8 10^3/uL (0.0-0.8); MONO % 6.5 % (2.0-8.0); NEUTROPHILS # 9.1 10^3/uL (1.5-8.5); PLATELET COUNT, AUTOMATED 358 10^3/uL (150-450); RED BLOOD COUNT 3.67 10^6/uL (4.00-5.40)
[2022-05-29 10:27] LABS: ALBUMIN 3.5 G/DL (3.2-5.2); CALCIUM LEVEL 9.2 MG/DL (8.3-10.6); CREATININE FOR GFR 1.6 MG/DL (0.55-1.30); GLOMERULAR FILTRATION RATE 34.1 (>45); POTASSIUM SERUM 3.9 MMOL/L (3.5-5.1); TOTAL PROTEIN 6.6 G/DL (5.7-8.2)
== END ==
PROVIDERS: ATTEND Nurse Practitioner
DX: D59.10 Autoimmune hemolytic anemia, unspecified (principal); Z79.899 Other long term (current) drug therapy

== ENCOUNTER → 2022-06-04 | Outpatient (REF) | payer OTHER, MEDICAID | PROVIDERS: ATTEND Student in an Organized Health Care Education/Training Program | DX: Z20.822 Contact with and (suspected) exposure to COVID-19 (principal) ==

== ENCOUNTER → 2022-06-05 | Outpatient (REF) | payer OTHER, MEDICAID | PROVIDERS: ATTEND Internal Medicine Nephrology | DX: N17.9 Acute kidney failure, unspecified (principal); N25.81 Secondary hyperparathyroidism of renal origin; D64.9 Anemia, unspecified; Z53.8 Procedure and treatment not carried out for other reasons ==

== ENCOUNTER → 2022-06-14 | Outpatient (CLI) | payer OTHER, MEDICAID | LOC: M CARPUL 09:48 | PROVIDERS: ATTEND Student in an Organized Health Care Education/Training Program | DX: R06.02 Shortness of breath (principal); I35.0 Nonrheumatic aortic (valve) stenosis ==

== ENCOUNTER → 2022-06-24 | Outpatient (REF) | payer OTHER, MEDICAID ==
[2022-06-24 10:31] LABS: HEMATOCRIT 31.4 % (36.0-47.0); HEMOGLOBIN 9.3 g/dl (12.0-15.5); MEAN CORPUSCULAR HEMOGLOBIN 31.1 pg (27.0-33.0); MEAN CORPUSCULAR HGB CONC 29.6 g/dl (32.0-36.5); PLATELET COUNT, AUTOMATED 338 10^3/uL (150-450); RED BLOOD COUNT 2.99 10^6/uL (4.00-5.40); WHITE BLOOD COUNT 14.6 10^3/uL (4.0-10.0)
== END ==
PROVIDERS: ATTEND Nurse Practitioner
DX: Z86.718 Personal history of other venous thrombosis and embolism (principal)

== ENCOUNTER → 2022-07-08 | Outpatient (REF) | payer OTHER, MEDICAID ==
[~2022-07-08] MED LIST changes: +INSU100I6 SC; -LEVE1INJ5 SC
[2022-07-08 10:25] LABS: BASO # 0.1 10^3/uL (0.0-0.2); BASO % 0.3 % (0.0-1.0); EOS # 0.2 10^3/uL (0.0-0.5); EOS % 1.3 % (0.0-3.0); HEMATOCRIT 35.2 % (36.0-47.0); HEMOGLOBIN 10.1 g/dl (12.0-15.5); LYMPH # 2.1 10^3/uL (1.5-5.0); LYMPH % 14.1 % (24.0-44.0); MEAN CORPUSCULAR HEMOGLOBIN 31.5 pg (27.0-33.0); MEAN CORPUSCULAR HGB CONC 28.7 g/dl (32.0-36.5); MEAN CORPUSCULAR VOLUME 109.7 fl (80.0-96.0); MONO % 6.9 % (2.0-8.0); NEUTROPHILS # 11.6 10^3/uL (1.5-8.5); NEUTROPHILS % 76.9 % (36.0-66.0); PLATELET COUNT, AUTOMATED 387 10^3/uL (150-450); RED BLOOD COUNT 3.21 10^6/uL (4.00-5.40)
[2022-07-08 10:58] LABS: ALBUMIN 3.5 G/DL (3.2-5.2); BILIRUBIN,TOTAL 1.6 MG/DL (0.3-1.2); CALCIUM LEVEL 8.8 MG/DL (8.3-10.6); CREATININE FOR GFR 1.77 MG/DL (0.55-1.30); GLOMERULAR FILTRATION RATE 30.4 (>45); POTASSIUM SERUM 3.6 MMOL/L (3.5-5.1); TOTAL PROTEIN 6.6 G/DL (5.7-8.2)
== END ==
PROVIDERS: ATTEND Nurse Practitioner
DX: I82.501 Chronic embolism and thrombosis of unspecified deep veins of right lower extremity (principal)

== ENCOUNTER → 2022-07-19 | Outpatient (REF) | payer OTHER, MEDICAID | PROVIDERS: ATTEND Student in an Organized Health Care Education/Training Program | DX: Z20.822 Contact with and (suspected) exposure to COVID-19 (principal) ==

== ENCOUNTER → 2022-07-22 | Outpatient (REF) | payer OTHER, MEDICAID ==
[2022-07-22 12:42] LABS: BASO # 0.1 10^3/uL (0.0-0.2); BASO % 0.3 % (0.0-1.0); EOS % 0.2 % (0.0-3.0); HEMOGLOBIN 10.2 g/dl (12.0-15.5); LYMPH # 0.9 10^3/uL (1.5-5.0); MEAN CORPUSCULAR HEMOGLOBIN 32.5 pg (27.0-33.0); MEAN CORPUSCULAR VOLUME 108.3 fl (80.0-96.0); MONO # 1.3 10^3/uL (0.0-0.8); MONO % 8.4 % (2.0-8.0); NEUTROPHILS # 12.7 10^3/uL (1.5-8.5); NEUTROPHILS % 84.3 % (36.0-66.0); PLATELET COUNT, AUTOMATED 368 10^3/uL (150-450); RED BLOOD COUNT 3.14 10^6/uL (4.00-5.40); WHITE BLOOD COUNT 15.1 10^3/uL (4.0-10.0)
[2022-07-22 13:18] LABS: ALBUMIN 3.7 G/DL (3.2-5.2); BILIRUBIN,TOTAL 1.4 MG/DL (0.3-1.2); CALCIUM LEVEL 8.2 MG/DL (8.3-10.6); CREATININE FOR GFR 1.87 MG/DL (0.55-1.30); GLOMERULAR FILTRATION RATE 28.5 (>45); TOTAL PROTEIN 6.9 G/DL (5.7-8.2)
== END ==
PROVIDERS: ATTEND Nurse Practitioner
DX: D59.10 Autoimmune hemolytic anemia, unspecified (principal); Z79.899 Other long term (current) drug therapy

== ENCOUNTER → 2022-08-26 | Outpatient (REF) | payer OTHER, MEDICAID ==
[~2022-08-26] MED LIST changes: +TIMO0.5S20 OU; -TIMO0.5S29 OU
== END ==
PROVIDERS: ATTEND Nurse Practitioner
DX: D58.9 Hereditary hemolytic anemia, unspecified (principal); Z53.8 Procedure and treatment not carried out for other reasons

== ENCOUNTER → 2022-08-28 | Outpatient (REF) | payer OTHER, MEDICAID ==
[2022-08-28 11:04] LABS: BASO % 0.3 % (0.0-1.0); EOS # 0.2 10^3/uL (0.0-0.5); EOS % 1.3 % (0.0-3.0); HEMATOCRIT 28.2 % (36.0-47.0); HEMOGLOBIN 8.4 g/dl (12.0-15.5); LYMPH # 1.3 10^3/uL (1.5-5.0); LYMPH % 9.6 % (24.0-44.0); MEAN CORPUSCULAR HEMOGLOBIN 33.3 pg (27.0-33.0); MEAN CORPUSCULAR HGB CONC 29.8 g/dl (32.0-36.5); MEAN CORPUSCULAR VOLUME 111.9 fl (80.0-96.0); MONO % 7.3 % (2.0-8.0); NEUTROPHILS % 80.9 % (36.0-66.0); PLATELET COUNT, AUTOMATED 347 10^3/uL (150-450); RED BLOOD COUNT 2.52 10^6/uL (4.00-5.40); WHITE BLOOD COUNT 13.6 10^3/uL (4.0-10.0)
[2022-08-28 11:33] LABS: CALCIUM LEVEL 9.2 MG/DL (8.3-10.6); CREATININE FOR GFR 1.72 MG/DL (0.55-1.30); GLOMERULAR FILTRATION RATE 31.4 (>45); POTASSIUM SERUM 3.9 MMOL/L (3.5-5.1); TOTAL PROTEIN 5.9 G/DL (5.7-8.2)
== END ==
PROVIDERS: ATTEND Nurse Practitioner
DX: D58.9 Hereditary hemolytic anemia, unspecified (principal)

== ENCOUNTER → 2022-09-13 | Outpatient (REF) | payer OTHER, MEDICAID ==
[2022-09-13 09:40] LABS: BASO % 0.4 % (0.0-1.0); EOS # 0.1 10^3/uL (0.0-0.5); EOS % 1.1 % (0.0-3.0); HEMATOCRIT 32.1 % (36.0-47.0); HEMOGLOBIN 9.5 g/dl (12.0-15.5); LYMPH # 1.3 10^3/uL (1.5-5.0); LYMPH % 11.9 % (24.0-44.0); MEAN CORPUSCULAR HEMOGLOBIN 33.2 pg (27.0-33.0); MEAN CORPUSCULAR HGB CONC 29.6 g/dl (32.0-36.5); MEAN CORPUSCULAR VOLUME 112.2 fl (80.0-96.0); MONO # 0.8 10^3/uL (0.0-0.8); MONO % 6.8 % (2.0-8.0); NEUTROPHILS # 8.8 10^3/uL (1.5-8.5); NEUTROPHILS % 79.3 % (36.0-66.0); PLATELET COUNT, AUTOMATED 380 10^3/uL (150-450); RED BLOOD COUNT 2.86 10^6/uL (4.00-5.40); WHITE BLOOD COUNT 11.1 10^3/uL (4.0-10.0)
[2022-09-13 10:07] LABS: ALBUMIN 3.3 G/DL (3.2-5.2); BILIRUBIN,TOTAL 1.2 MG/DL (0.3-1.2); CALCIUM LEVEL 8.8 MG/DL (8.3-10.6); CREATININE FOR GFR 1.98 MG/DL (0.55-1.30); GLOMERULAR FILTRATION RATE 26.7 (>45); POTASSIUM SERUM 4.1 MMOL/L (3.5-5.1); TOTAL PROTEIN 6.3 G/DL (5.7-8.2)
[2022-09-17 18:07] LABS: BETA-2 GLYCOPROTEIN I ABY IGA <9 (0-25); BETA-2 GLYCOPROTEIN I ABY IGG <9 (0-20); BETA-2 GLYCOPROTEIN I ABY IGM <9 (0-32)
== END ==
PROVIDERS: ATTEND Nurse Practitioner
DX: D58.9 Hereditary hemolytic anemia, unspecified (principal)

== ENCOUNTER 2022-09-19 19:14 | Emergency (ER) | payer OTHER, MEDICAID ==
[~2022-09-19] VITALS: Ht 152.4 cm; Wt 90.9 kg
[2022-09-19] MEDS ORDERED: HumuLIN R (REGULAR) INSULIN (NovoLIN R) **100U/ML** PER UNIT IV ONE (19:35)
[2022-09-19 19:51] LABS: BASO % 0.2 % (0.0-1.0); HEMATOCRIT 30.1 % (36.0-47.0); HEMOGLOBIN 9.1 g/dl (12.0-15.5); LYMPH # 0.2 10^3/uL (1.5-5.0); LYMPH % 1.7 % (24.0-44.0); MEAN CORPUSCULAR HEMOGLOBIN 32.7 pg (27.0-33.0); MEAN CORPUSCULAR HGB CONC 30.2 g/dl (32.0-36.5); MEAN CORPUSCULAR VOLUME 108.3 fl (80.0-96.0); MONO # 0.1 10^3/uL (0.0-0.8); MONO % 1.1 % (2.0-8.0); NEUTROPHILS # 12.3 10^3/uL (1.5-8.5); NEUTROPHILS % 96.4 % (36.0-66.0); PLATELET COUNT, AUTOMATED 370 10^3/uL (150-450); RED BLOOD COUNT 2.78 10^6/uL (4.00-5.40); WHITE BLOOD COUNT 12.7 10^3/uL (4.0-10.0)
[2022-09-19 20:12] LABS: HEMOGLOBIN A1c 7.8 % (4.0-6.0)
[2022-09-19 21:01] LABS: ALBUMIN 3.5 G/DL (3.2-5.2); BILIRUBIN,DIRECT 0.3 MG/DL (<0.4); BILIRUBIN,TOTAL 0.8 MG/DL (0.3-1.2); CALCIUM LEVEL 8.6 MG/DL (8.3-10.6); CREATININE FOR GFR 1.94 MG/DL (0.55-1.30); GLOMERULAR FILTRATION RATE 27.3 (>45); POTASSIUM SERUM 4.4 MMOL/L (3.5-5.1); TOTAL PROTEIN 6.5 G/DL (5.7-8.2)
[2022-09-19 22:11] LABS: ACETONE/KETONE 0.34 MMOL/L (0.02-0.27)
[2022-09-19 22:20] VITALS: BP 139/93
== END 2022-09-19 22:42 | disposition home or self-care (01) ==
LOC: M ED 19:14
DX: E11.65 Type 2 diabetes mellitus with hyperglycemia (principal); J44.9 Chronic obstructive pulmonary disease, unspecified; K21.9 Gastro-esophageal reflux disease without esophagitis; K57.32 Diverticulitis of large intestine without perforation or abscess without bleeding; E03.9 Hypothyroidism, unspecified; F32.A Depression, unspecified; Z88.5 Allergy status to narcotic agent; Z88.6 Allergy status to analgesic agent; Z79.01 Long term (current) use of anticoagulants; Z79.52 Long term (current) use of systemic steroids; Z79.899 Other long term (current) drug therapy; Z79.4 Long term (current) use of insulin

== ENCOUNTER → 2022-09-23 | Outpatient (REF) | payer OTHER, MEDICAID ==
[2022-09-23 08:34] LABS: BASO # 0.1 10^3/uL (0.0-0.2); BASO % 0.4 % (0.0-1.0); EOS # 0.2 10^3/uL (0.0-0.5); EOS % 1.7 % (0.0-3.0); HEMATOCRIT 29.8 % (36.0-47.0); HEMOGLOBIN 8.8 g/dl (12.0-15.5); LYMPH % 17.7 % (24.0-44.0); MEAN CORPUSCULAR HEMOGLOBIN 32.8 pg (27.0-33.0); MEAN CORPUSCULAR HGB CONC 29.5 g/dl (32.0-36.5); MEAN CORPUSCULAR VOLUME 111.2 fl (80.0-96.0); MONO # 0.9 10^3/uL (0.0-0.8); MONO % 8.3 % (2.0-8.0); NEUTROPHILS % 71.5 % (36.0-66.0); PLATELET COUNT, AUTOMATED 313 10^3/uL (150-450); RED BLOOD COUNT 2.68 10^6/uL (4.00-5.40); WHITE BLOOD COUNT 11.1 10^3/uL (4.0-10.0)
[2022-09-23 08:56] LABS: ALBUMIN 3.1 G/DL (3.2-5.2); BILIRUBIN,TOTAL 1.1 MG/DL (0.3-1.2); CALCIUM LEVEL 8.9 MG/DL (8.3-10.6); CREATININE FOR GFR 1.75 MG/DL (0.55-1.30); GLOMERULAR FILTRATION RATE 30.8 (>45); POTASSIUM SERUM 3.7 MMOL/L (3.5-5.1); TOTAL PROTEIN 5.6 G/DL (5.7-8.2)
[2022-09-25 05:07] LABS: BETA-2 GLYCOPROTEIN I ABY IGA <9 (0-25); BETA-2 GLYCOPROTEIN I ABY IGG <9 (0-20); BETA-2 GLYCOPROTEIN I ABY IGM <9 (0-32)
== END ==
PROVIDERS: ATTEND Nurse Practitioner
DX: D58.9 Hereditary hemolytic anemia, unspecified (principal)

== ENCOUNTER → 2022-10-02 | Outpatient (REF) | payer OTHER, MEDICAID ==
[~2022-10-02] MED LIST changes: +CYAN-1 PO; -CYAN100050 PO; +FOLI400T13 PO; +TRES1INJ
== END ==
PROVIDERS: ATTEND Internal Medicine Nephrology
DX: N17.9 Acute kidney failure, unspecified (principal); D64.9 Anemia, unspecified; N25.81 Secondary hyperparathyroidism of renal origin; Z53.8 Procedure and treatment not carried out for other reasons

== ENCOUNTER → 2022-10-04 | Outpatient (REF) | payer OTHER, MEDICAID | PROVIDERS: ATTEND Internal Medicine Nephrology | DX: N17.9 Acute kidney failure, unspecified (principal); N25.81 Secondary hyperparathyroidism of renal origin; D64.9 Anemia, unspecified; Z53.8 Procedure and treatment not carried out for other reasons ==

== ENCOUNTER → 2022-10-04 | Outpatient (REF) | payer OTHER, MEDICAID ==
[~2022-10-04] MED LIST changes: -CYAN-1 PO; +CYAN100050 PO; -FOLI400T13 PO; -TRES1INJ
[2022-10-04 09:53] LABS: BASO % 0.2 % (0.0-1.0); EOS % 0.1 % (0.0-3.0); HEMATOCRIT 32.9 % (36.0-47.0); HEMOGLOBIN 9.7 g/dl (12.0-15.5); LYMPH % 5.6 % (24.0-44.0); MEAN CORPUSCULAR HEMOGLOBIN 32.7 pg (27.0-33.0); MEAN CORPUSCULAR HGB CONC 29.5 g/dl (32.0-36.5); MEAN CORPUSCULAR VOLUME 110.8 fl (80.0-96.0); MONO # 1.1 10^3/uL (0.0-0.8); MONO % 6.3 % (2.0-8.0); NEUTROPHILS # 15.6 10^3/uL (1.5-8.5); NEUTROPHILS % 87.2 % (36.0-66.0); PLATELET COUNT, AUTOMATED 384 10^3/uL (150-450); RED BLOOD COUNT 2.97 10^6/uL (4.00-5.40); WHITE BLOOD COUNT 17.9 10^3/uL (4.0-10.0)
[2022-10-04 10:17] LABS: ALBUMIN 3.7 G/DL (3.2-5.2); CALCIUM LEVEL 8.7 MG/DL (8.3-10.6); CREATININE FOR GFR 1.66 MG/DL (0.55-1.30); GLOMERULAR FILTRATION RATE 32.7 (>45); PHOSPHORUS LEVEL 4.3 MG/DL (2.4-5.1); POTASSIUM SERUM 4.2 MMOL/L (3.5-5.1)
== END ==
PROVIDERS: ATTEND Internal Medicine Nephrology
DX: N17.9 Acute kidney failure, unspecified (principal); N25.81 Secondary hyperparathyroidism of renal origin; D64.9 Anemia, unspecified

== ENCOUNTER → 2022-11-22 | Outpatient (REF) | payer OTHER, MEDICAID ==
[~2022-11-22] MED LIST changes: +CYAN-1 PO; -CYAN100050 PO; +FOLI400T13 PO; +TRES1INJ
[2022-11-22 08:11] LABS: BASO # 0.1 10^3/uL (0.0-0.2); BASO % 0.5 % (0.0-1.0); EOS # 0.3 10^3/uL (0.0-0.5); EOS % 1.8 % (0.0-3.0); HEMATOCRIT 38.2 % (36.0-47.0); HEMOGLOBIN 11.5 g/dl (12.0-15.5); LYMPH # 2.5 10^3/uL (1.5-5.0); LYMPH % 15.1 % (24.0-44.0); MEAN CORPUSCULAR HEMOGLOBIN 31.7 pg (27.0-33.0); MEAN CORPUSCULAR HGB CONC 30.1 g/dl (32.0-36.5); MEAN CORPUSCULAR VOLUME 105.2 fl (80.0-96.0); MONO # 1.2 10^3/uL (0.0-0.8); MONO % 7.6 % (2.0-8.0); NEUTROPHILS # 12.1 10^3/uL (1.5-8.5); NEUTROPHILS % 74.4 % (36.0-66.0); PLATELET COUNT, AUTOMATED 369 10^3/uL (150-450); RED BLOOD COUNT 3.63 10^6/uL (4.00-5.40); WHITE BLOOD COUNT 16.3 10^3/uL (4.0-10.0)
[2022-11-22 08:38] LABS: ALBUMIN 3.5 G/DL (3.2-5.2); BILIRUBIN,TOTAL 0.6 MG/DL (0.3-1.2); CALCIUM LEVEL 9.3 MG/DL (8.3-10.6); CREATININE FOR GFR 1.7 MG/DL (0.55-1.30); GLOMERULAR FILTRATION RATE 31.8 (>45); POTASSIUM SERUM 3.7 MMOL/L (3.5-5.1); TOTAL PROTEIN 6.5 G/DL (5.7-8.2)
== END ==
PROVIDERS: ATTEND Nurse Practitioner
DX: D58.9 Hereditary hemolytic anemia, unspecified (principal)

== ENCOUNTER → 2023-01-01 | Outpatient (REF) | payer OTHER, MEDICAID ==
[~2023-01-01] MED LIST changes: +TRUL10IN
[2023-01-01 09:21] LABS: BASO # 0.1 10^3/uL (0.0-0.2); BASO % 0.6 % (0.0-1.0); EOS # 0.3 10^3/uL (0.0-0.5); EOS % 2.5 % (0.0-3.0); HEMATOCRIT 37.9 % (36.0-47.0); HEMOGLOBIN 11.4 g/dl (12.0-15.5); LYMPH # 1.5 10^3/uL (1.5-5.0); MEAN CORPUSCULAR HEMOGLOBIN 30.5 pg (27.0-33.0); MEAN CORPUSCULAR HGB CONC 30.1 g/dl (32.0-36.5); MEAN CORPUSCULAR VOLUME 101.3 fl (80.0-96.0); MONO # 1.1 10^3/uL (0.0-0.8); MONO % 8.3 % (2.0-8.0); NEUTROPHILS # 10.3 10^3/uL (1.5-8.5); PLATELET COUNT, AUTOMATED 412 10^3/uL (150-450); RED BLOOD COUNT 3.74 10^6/uL (4.00-5.40); WHITE BLOOD COUNT 13.4 10^3/uL (4.0-10.0)
[2023-01-01 09:44] LABS: ALBUMIN 3.4 G/DL (3.2-5.2); CALCIUM LEVEL 9.1 MG/DL (8.3-10.6); CREATININE FOR GFR 1.86 MG/DL (0.55-1.30); GLOMERULAR FILTRATION RATE 28.7 (>45); PHOSPHORUS LEVEL 3.7 MG/DL (2.4-5.1); POTASSIUM SERUM 3.8 MMOL/L (3.5-5.1)
[2023-01-01 11:20] LABS: PTH INTACT 56.8 PG/ML (18.5-88.0)
== END ==
PROVIDERS: ATTEND Internal Medicine Nephrology
DX: N17.9 Acute kidney failure, unspecified (principal); N25.81 Secondary hyperparathyroidism of renal origin; D64.9 Anemia, unspecified

== ENCOUNTER → 2023-02-28 | Outpatient (REF) | payer OTHER, MEDICAID ==
[~2023-02-28] MED LIST changes: +GLIP5TAB17 PO; -GLIP5TAB8 PO; -OXYB5TAB10 PO; +OXYB5TAB11 PO
[2023-02-28 09:55] LABS: BASO # 0.1 10^3/uL (0.0-0.2); BASO % 0.8 % (0.0-1.0); EOS # 0.3 10^3/uL (0.0-0.5); EOS % 2.5 % (0.0-3.0); HEMATOCRIT 37.1 % (36.0-47.0); HEMOGLOBIN 11.2 g/dl (12.0-15.5); LYMPH # 1.5 10^3/uL (1.5-5.0); LYMPH % 14.8 % (24.0-44.0); MEAN CORPUSCULAR HEMOGLOBIN 29.6 pg (27.0-33.0); MEAN CORPUSCULAR HGB CONC 30.2 g/dl (32.0-36.5); MEAN CORPUSCULAR VOLUME 97.9 fl (80.0-96.0); MONO # 0.8 10^3/uL (0.0-0.8); NEUTROPHILS # 7.5 10^3/uL (1.5-8.5); NEUTROPHILS % 73.5 % (36.0-66.0); PLATELET COUNT, AUTOMATED 385 10^3/uL (150-450); RED BLOOD COUNT 3.79 10^6/uL (4.00-5.40); WHITE BLOOD COUNT 10.2 10^3/uL (4.0-10.0)
[2023-02-28 10:21] LABS: ALBUMIN 3.3 G/DL (3.2-5.2); BILIRUBIN,TOTAL 0.5 MG/DL (0.3-1.2); CALCIUM LEVEL 9.3 MG/DL (8.3-10.6); CREATININE FOR GFR 1.65 MG/DL (0.55-1.30); GLOMERULAR FILTRATION RATE 32.8 (>45); POTASSIUM SERUM 3.9 MMOL/L (3.5-5.1); TOTAL PROTEIN 6.1 G/DL (5.7-8.2)
== END ==
PROVIDERS: ATTEND Nurse Practitioner
DX: D59.10 Autoimmune hemolytic anemia, unspecified (principal); Z79.899 Other long term (current) drug therapy

== ENCOUNTER → 2023-04-09 | Outpatient (REF) | payer MEDICARE, MEDICAID ==
[~2023-04-09] MED LIST changes: +LEXA5TAB13 PO
[2023-04-09 11:42] LABS: BASO # 0.1 10^3/uL (0.0-0.2); BASO % 0.6 % (0.0-1.0); EOS # 0.2 10^3/uL (0.0-0.5); EOS % 1.5 % (0.0-3.0); HEMATOCRIT 39.1 % (36.0-47.0); HEMOGLOBIN 11.9 g/dl (12.0-15.5); LYMPH # 1.6 10^3/uL (1.5-5.0); LYMPH % 12.2 % (24.0-44.0); MEAN CORPUSCULAR HEMOGLOBIN 29.8 pg (27.0-33.0); MEAN CORPUSCULAR HGB CONC 30.4 g/dl (32.0-36.5); MONO # 1.1 10^3/uL (0.0-0.8); NEUTROPHILS # 10.2 10^3/uL (1.5-8.5); NEUTROPHILS % 77.2 % (36.0-66.0); PLATELET COUNT, AUTOMATED 395 10^3/uL (150-450); RED BLOOD COUNT 3.99 10^6/uL (4.00-5.40); WHITE BLOOD COUNT 13.2 10^3/uL (4.0-10.0)
[2023-04-09 12:13] LABS: ALBUMIN 3.6 G/DL (3.2-5.2); CALCIUM LEVEL 9.5 MG/DL (8.3-10.6); CREATININE FOR GFR 1.86 MG/DL (0.55-1.30); GLOMERULAR FILTRATION RATE 28.6 (>45); PHOSPHORUS LEVEL 4.2 MG/DL (2.4-5.1); POTASSIUM SERUM 4.4 MMOL/L (3.5-5.1); PTH INTACT 48.8 PG/ML (18.5-88.0)
[2023-04-09 12:23] LABS: HEMOGLOBIN A1c 8.4 % (4.0-6.0)
== END ==
PROVIDERS: ATTEND Internal Medicine Nephrology
DX: N17.9 Acute kidney failure, unspecified (principal); D64.9 Anemia, unspecified; Z79.899 Other long term (current) drug therapy

== ENCOUNTER → 2023-04-11 | Outpatient (REF) | payer MEDICARE, MEDICAID | PROVIDERS: ATTEND Family Medicine | DX: M62.82 Rhabdomyolysis (principal); I82.501 Chronic embolism and thrombosis of unspecified deep veins of right lower extremity; Z53.8 Procedure and treatment not carried out for other reasons ==

== ENCOUNTER → 2023-04-16 | Outpatient (REF) | payer MEDICARE, MEDICAID | PROVIDERS: ATTEND Student in an Organized Health Care Education/Training Program | DX: E03.9 Hypothyroidism, unspecified (principal) ==

== ENCOUNTER → 2023-04-18 | Outpatient (REF) | payer MEDICARE, MEDICAID, OTHER ==
[2023-04-18 11:21] LABS: THYROID STIMULATING HORMONE 0.043 uIU/ML (0.55-4.78)
[2023-04-18 15:40] LABS: THYROXINE (T4) 10.3 UG/DL (4.5-10.9)
== END ==
PROVIDERS: ATTEND Student in an Organized Health Care Education/Training Program
DX: E03.9 Hypothyroidism, unspecified (principal)

== ENCOUNTER → 2023-04-25 | Outpatient (CLI) | payer MEDICARE, MEDICAID | LOC: M WHC 08:52 | PROVIDERS: ATTEND Student in an Organized Health Care Education/Training Program | DX: M81.0 Age-related osteoporosis without current pathological fracture (principal) ==

== ENCOUNTER → 2023-05-30 | Outpatient (REF) | payer MEDICARE, MEDICAID ==
[~2023-05-30] MED LIST changes: +INSU100I48 SQ; -OXYB5TAB11 PO; +OXYB5TAB14 PO
[2023-05-30 09:48] LABS: HEMOGLOBIN A1c 8.5 % (4.0-6.0)
== END ==
PROVIDERS: ATTEND Student in an Organized Health Care Education/Training Program
DX: E11.9 Type 2 diabetes mellitus without complications (principal); D59.10 Autoimmune hemolytic anemia, unspecified; M62.82 Rhabdomyolysis

== ENCOUNTER → 2023-06-24 | Outpatient (REF) | payer MEDICARE, MEDICAID | LOC: M SFHCPLAZ 11:44 | PROVIDERS: ATTEND Family Medicine | DX: M81.0 Age-related osteoporosis without current pathological fracture (principal) ==

== ENCOUNTER → 2023-08-04 | Outpatient (REF) | payer MEDICARE, MEDICAID | PROVIDERS: ATTEND Student in an Organized Health Care Education/Training Program | DX: R26.2 Difficulty in walking, not elsewhere classified (principal); Z79.899 Other long term (current) drug therapy ==

== ENCOUNTER → 2023-08-20 | Outpatient (REF) | payer MEDICARE, MEDICAID, OTHER ==
[2023-08-20 12:32] LABS: BASO # 0.1 10^3/uL (0.0-0.2); BASO % 0.5 % (0.0-1.0); EOS # 0.2 10^3/uL (0.0-0.5); EOS % 1.3 % (0.0-3.0); HEMATOCRIT 37.9 % (36.0-47.0); HEMOGLOBIN 11.8 g/dl (12.0-15.5); LYMPH # 1.3 10^3/uL (1.5-5.0); LYMPH % 10.4 % (24.0-44.0); MEAN CORPUSCULAR HEMOGLOBIN 31.2 pg (27.0-33.0); MEAN CORPUSCULAR HGB CONC 31.1 g/dl (32.0-36.5); MEAN CORPUSCULAR VOLUME 100.3 fl (80.0-96.0); MONO # 0.9 10^3/uL (0.0-0.8); NEUTROPHILS # 10.2 10^3/uL (1.5-8.5); NEUTROPHILS % 80.4 % (36.0-66.0); PLATELET COUNT, AUTOMATED 380 10^3/uL (150-450); RED BLOOD COUNT 3.78 10^6/uL (4.00-5.40); WHITE BLOOD COUNT 12.6 10^3/uL (4.0-10.0)
[2023-08-20 13:11] LABS: ALBUMIN 3.1 G/DL (3.2-5.2); CALCIUM LEVEL 8.9 MG/DL (8.3-10.6); CREATININE FOR GFR 1.95 MG/DL (0.55-1.30); GLOMERULAR FILTRATION RATE 27.1 (>45); PHOSPHORUS LEVEL 4.7 MG/DL (2.4-5.1); POTASSIUM SERUM 4.1 MMOL/L (3.5-5.1)
[2023-08-20 13:12] LABS: PTH INTACT 75.7 PG/ML (18.5-88.0)
[2023-08-20 13:15] LABS: HEMOGLOBIN A1c 7.3 % (4.0-6.0)
== END ==
PROVIDERS: ATTEND Internal Medicine Nephrology
DX: N17.9 Acute kidney failure, unspecified (principal); N25.81 Secondary hyperparathyroidism of renal origin; E11.22 Type 2 diabetes mellitus with diabetic chronic kidney disease; D64.9 Anemia, unspecified

== ENCOUNTER → 2023-08-25 | Outpatient (REF) | payer MEDICARE, MEDICAID, OTHER ==
[2023-08-26 11:39] LABS: APPEARANCE, URINE CLEAR (CLEAR); BACTERIA, URINE AUTO 1+ (NEGATIVE); BILIRUBIN, URINE AUTO NEGATIVE (NEGATIVE); BLOOD, URINE BLOOD NEGATIVE (NEGATIVE); COLOR, URINE YELLOW (YELLOW); GLUCOSE, URINE (UA) AUTO 3+ mg/dL (NEGATIVE); KETONE, URINE AUTO NEGATIVE (NEGATIVE); LEUKOCYTE ESTERASE, URINE AUTO NEGATIVE (NEGATIVE); NITRITE, URINE AUTO NEGATIVE (NEGATIVE); PROTEIN, URINE AUTO 2+ mg/dL (NEGATIVE); RBC, URINE AUTO 0 /HPF (0-3); SPECIFIC GRAVITY URINE AUTO 1.012 (1.002-1.035); SQUAMOUS EPITHELIAL CELL UR AU 0 /HPF (0-6); UROBILINOGEN, URINE AUTO 0.2 mg/dL (0.0-2.0); WBC, URINE AUTO 1 /HPF (0-3)
== END ==
LOC: M LAB REF 10:17
PROVIDERS: ATTEND Internal Medicine Nephrology
DX: N17.9 Acute kidney failure, unspecified (principal)

== ENCOUNTER → 2023-09-15 | Outpatient (REF) | payer MEDICARE, MEDICAID, OTHER ==
[~2023-09-15] MED LIST changes: -ROSU40TA4 PO; +ROSU40TA63 PO
[2023-09-15 11:11] LABS: BASO # 0.1 10^3/uL (0.0-0.2); BASO % 0.7 % (0.0-1.0); EOS # 0.2 10^3/uL (0.0-0.5); EOS % 1.9 % (0.0-3.0); HEMATOCRIT 37.3 % (36.0-47.0); HEMOGLOBIN 11.9 g/dl (12.0-15.5); LYMPH # 1.5 10^3/uL (1.5-5.0); LYMPH % 13.5 % (24.0-44.0); MEAN CORPUSCULAR HEMOGLOBIN 31.9 pg (27.0-33.0); MEAN CORPUSCULAR HGB CONC 31.9 g/dl (32.0-36.5); MONO # 0.9 10^3/uL (0.0-0.8); NEUTROPHILS # 8.1 10^3/uL (1.5-8.5); NEUTROPHILS % 75.4 % (36.0-66.0); PLATELET COUNT, AUTOMATED 363 10^3/uL (150-450); RED BLOOD COUNT 3.73 10^6/uL (4.00-5.40); WHITE BLOOD COUNT 10.8 10^3/uL (4.0-10.0)
[2023-09-15 11:40] LABS: ALBUMIN 3.4 G/DL (3.2-5.2); BILIRUBIN,TOTAL 0.6 MG/DL (0.3-1.2); CALCIUM LEVEL 9.8 MG/DL (8.3-10.6); CREATININE FOR GFR 1.87 MG/DL (0.55-1.30); GLOMERULAR FILTRATION RATE 28.4 (>45); POTASSIUM SERUM 4.4 MMOL/L (3.5-5.1); TOTAL PROTEIN 6.2 G/DL (5.7-8.2)
== END ==
PROVIDERS: ATTEND Nurse Practitioner
DX: D64.9 Anemia, unspecified (principal)

== ENCOUNTER → 2023-10-10 | Outpatient (REF) | payer MEDICARE, MEDICAID, OTHER ==
[~2023-10-10] MED LIST changes: +NITR100C3 PO; -NITR1CAP11 PO
[2023-10-10 10:04] LABS: HEMOGLOBIN A1c 7.4 % (4.0-6.0)
== END ==
PROVIDERS: ATTEND Student in an Organized Health Care Education/Training Program
DX: E11.22 Type 2 diabetes mellitus with diabetic chronic kidney disease (principal); M81.0 Age-related osteoporosis without current pathological fracture

== ENCOUNTER → 2023-12-22 | Outpatient (REF) | payer MEDICARE, MEDICAID, OTHER ==
[2023-12-22 11:10] LABS: BASO # 0.1 10^3/uL (0.0-0.2); BASO % 0.6 % (0.0-1.0); EOS # 0.2 10^3/uL (0.0-0.5); EOS % 1.6 % (0.0-3.0); HEMATOCRIT 37.1 % (36.0-47.0); HEMOGLOBIN 11.5 g/dl (12.0-15.5); LYMPH # 1.5 10^3/uL (1.5-5.0); LYMPH % 14.2 % (24.0-44.0); MEAN CORPUSCULAR HEMOGLOBIN 31.4 pg (27.0-33.0); MEAN CORPUSCULAR VOLUME 101.4 fl (80.0-96.0); MONO # 0.8 10^3/uL (0.0-0.8); MONO % 7.7 % (2.0-8.0); NEUTROPHILS # 8.2 10^3/uL (1.5-8.5); NEUTROPHILS % 75.5 % (36.0-66.0); PLATELET COUNT, AUTOMATED 312 10^3/uL (150-450); RED BLOOD COUNT 3.66 10^6/uL (4.00-5.40); WHITE BLOOD COUNT 10.9 10^3/uL (4.0-10.0)
[2023-12-22 11:33] LABS: ALBUMIN 3.4 G/DL (3.2-5.2); CALCIUM LEVEL 8.8 MG/DL (8.3-10.6); CREATININE FOR GFR 1.63 MG/DL (0.55-1.30); GLOMERULAR FILTRATION RATE 33.3 (>45); PHOSPHORUS LEVEL 4.1 MG/DL (2.4-5.1); POTASSIUM SERUM 4.4 MMOL/L (3.5-5.1)
[2023-12-22 12:08] LABS: HEMOGLOBIN A1c 7.6 % (4.0-6.0)
== END ==
PROVIDERS: ATTEND Internal Medicine Nephrology
DX: N17.9 Acute kidney failure, unspecified (principal); D64.9 Anemia, unspecified; N25.81 Secondary hyperparathyroidism of renal origin; E11.22 Type 2 diabetes mellitus with diabetic chronic kidney disease

== ENCOUNTER → 2024-03-08 | Outpatient (REF) | payer MEDICARE, MEDICAID, OTHER ==
[~2024-03-08] MED LIST changes: +ALEN10TA5 PO; +BUME1TAB3 PO; +CALC1CAP31 PO; +CEFD300C PO; +ENTR1TAB PO; +FAMO40TA3 PO; +FOLI0.4T5 PO; +GLIP10TA15 PO; -GLIP10TA6 PO; +LEXA1TAB2 PO; -ROSU40TA63 PO; +ROSU40TA81 PO; +TAB-TAB3 PO; -TRES1INJ; +TRES1INJ SC; -TRUL10IN; +TRUL10IN SC
[2024-03-08 11:06] LABS: BASO # 0.1 10^3/uL (0.0-0.2); BASO % 0.5 % (0.0-1.0); EOS # 0.2 10^3/uL (0.0-0.5); EOS % 1.2 % (0.0-3.0); HEMATOCRIT 40.9 % (36.0-47.0); HEMOGLOBIN 12.8 g/dl (12.0-15.5); LYMPH # 1.6 10^3/uL (1.5-5.0); LYMPH % 12.7 % (24.0-44.0); MEAN CORPUSCULAR HEMOGLOBIN 30.8 pg (27.0-33.0); MEAN CORPUSCULAR HGB CONC 31.3 g/dl (32.0-36.5); MEAN CORPUSCULAR VOLUME 98.3 fl (80.0-96.0); MONO % 7.8 % (2.0-8.0); NEUTROPHILS # 9.6 10^3/uL (1.5-8.5); NEUTROPHILS % 77.4 % (36.0-66.0); PLATELET COUNT, AUTOMATED 357 10^3/uL (150-450); RED BLOOD COUNT 4.16 10^6/uL (4.00-5.40); WHITE BLOOD COUNT 12.4 10^3/uL (4.0-10.0)
[2024-03-08 11:29] LABS: HEMOGLOBIN A1c 6.9 % (4.0-6.0)
[2024-03-08 11:58] LABS: ALBUMIN 3.6 G/DL (3.2-5.2); BILIRUBIN,TOTAL 0.6 MG/DL (0.3-1.2); CALCIUM LEVEL 10.1 MG/DL (8.3-10.6); CREATININE FOR GFR 1.74 MG/DL (0.55-1.30); GLOMERULAR FILTRATION RATE 30.8 (>39); MAGNESIUM LEVEL 2.5 MG/DL (1.8-2.4); POTASSIUM SERUM 3.7 MMOL/L (3.5-5.1); THYROID STIMULATING HORMONE 1.602 uIU/ML (0.55-4.78); TOTAL PROTEIN 7.2 G/DL (5.7-8.2)
== END ==
PROVIDERS: ATTEND Internal Medicine Cardiovascular Disease
DX: I50.32 Chronic diastolic (congestive) heart failure (principal); E78.2 Mixed hyperlipidemia; E11.65 Type 2 diabetes mellitus with hyperglycemia; G47.33 Obstructive sleep apnea (adult) (pediatric); R06.02 Shortness of breath; Z13.29 Encounter for screening for other suspected endocrine disorder

== ENCOUNTER 2024-03-27 15:35 | Emergency (ER) | payer MEDICARE, MEDICAID ==
[~2024-03-27] VITALS: Ht 152.4 cm; Wt 84.1 kg
[~2024-03-27 15:35] MED LIST changes: -ALEN10TA5 PO; -BUME1TAB3 PO; -CALC1CAP31 PO; -CEFD300C PO; -ENTR1TAB PO; -FAMO40TA3 PO; -FOLI0.4T5 PO; -LEXA1TAB2 PO; -TAB-TAB3 PO
[2024-03-27] MEDS: METHOCARBAMOL 1,000 MG/10 ML VIAL IV ONE (18:20)
[2024-03-27 18:51] LABS: BASO # 0.1 10^3/uL (0.0-0.2); BASO % 0.4 % (0.0-1.0); EOS # 0.1 10^3/uL (0.0-0.5); EOS % 0.5 % (0.0-3.0); HEMATOCRIT 38.3 % (36.0-47.0); HEMOGLOBIN 12.3 g/dl (12.0-15.5); LYMPH # 1.7 10^3/uL (1.5-5.0); LYMPH % 11.9 % (24.0-44.0); MEAN CORPUSCULAR HEMOGLOBIN 31.3 pg (27.0-33.0); MEAN CORPUSCULAR HGB CONC 32.1 g/dl (32.0-36.5); MEAN CORPUSCULAR VOLUME 97.5 fl (80.0-96.0); MONO # 1.2 10^3/uL (0.0-0.8); MONO % 8.5 % (2.0-8.0); NEUTROPHILS # 11.4 10^3/uL (1.5-8.5); NEUTROPHILS % 78.2 % (36.0-66.0); PLATELET COUNT, AUTOMATED 363 10^3/uL (150-450); RED BLOOD COUNT 3.93 10^6/uL (4.00-5.40); WHITE BLOOD COUNT 14.6 10^3/uL (4.0-10.0)
[2024-03-27 19:15] LABS: ALBUMIN 3.2 G/DL (3.2-5.2); BILIRUBIN,TOTAL 0.5 MG/DL (0.3-1.2); CALCIUM LEVEL 8.6 MG/DL (8.3-10.6); CREATININE FOR GFR 2.26 MG/DL (0.55-1.30); GLOMERULAR FILTRATION RATE 22.8 (>39); POTASSIUM SERUM 3.2 MMOL/L (3.5-5.1); TOTAL PROTEIN 6.1 G/DL (5.7-8.2)
[2024-03-27 19:59] LABS: ERYTHROCYTE SEDIMENTATION RATE 47 mm/hr (0-30)
[2024-03-27] MEDS ORDERED: LEXA1TAB2 PO (20:54)
[2024-03-27] MEDS ORDERED: FAMO40TA3 PO (20:54)
[2024-03-27] MEDS ORDERED: TAB-TAB3 PO (20:54)
[2024-03-27] MEDS ORDERED: FOLI0.4T5 PO (20:54)
[2024-03-27] MEDS ORDERED: ELIQ5TAB PO (20:54)
[2024-03-27] MEDS ORDERED: BUME1TAB3 PO (20:54)
[2024-03-27] MEDS ORDERED: LEVO100T5 PO (20:54)
[2024-03-27] MEDS ORDERED: CALC1CAP31 PO (20:54)
[2024-03-27] MEDS ORDERED: ALEN10TA5 PO (20:54)
[2024-03-27] MEDS ORDERED: ENTR1TAB PO (20:54)
[2024-03-27] MEDS ORDERED: CEFD300C PO (20:58)
[2024-03-27] MEDS: POTASSIUM CHLORIDE 10MEQ SR TABLET PO ONE (21:10)
[2024-03-27] MEDS: CEFDINIR 300 MG CAP (OMNICEF) PO ONE (21:10)
[2024-03-27 21:34] VITALS: BP 98/56; TEMP 98.6; O2SAT 96
== END 2024-03-27 21:31 | disposition home or self-care (01) ==
LOC: EDBD 15:35 → M ED 15:35
DX: N30.00 Acute cystitis without hematuria (principal); E87.6 Hypokalemia; S39.012A Strain of muscle, fascia and tendon of lower back, initial encounter; Y92.019 Unspecified place in single-family (private) house as the place of occurrence of the external cause; Y93.9 Activity, unspecified; Y99.9 Unspecified external cause status; E11.9 Type 2 diabetes mellitus without complications; I50.22 Chronic systolic (congestive) heart failure; J44.9 Chronic obstructive pulmonary disease, unspecified; N18.4 Chronic kidney disease, stage 4 (severe); Z87.891 Personal history of nicotine dependence; Z88.5 Allergy status to narcotic agent; Z88.8 Allergy status to other drugs, medicaments and biological substances; Z79.1 Long term (current) use of non-steroidal anti-inflammatories (NSAID); Z79.51 Long term (current) use of inhaled steroids; Z79.01 Long term (current) use of anticoagulants; Z79.2 Long term (current) use of antibiotics; Z79.4 Long term (current) use of insulin; Z79.810 Long term (current) use of selective estrogen receptor modulators (SERMs); Z79.899 Other long term (current) drug therapy
CPT/HCPCS: 80053; 81001; 83880; 85025; 85652; 87088; 87186; 96374; 99284; J2800

== ENCOUNTER → 2024-04-05 | Outpatient (REF) | payer MEDICARE, MEDICAID, OTHER ==
[~2024-04-05] MED LIST changes: +ALEN10TA5 PO; +BUME1TAB3 PO; +CALC1CAP31 PO; +CEFD300C PO; +ENTR1TAB PO; +FAMO40TA3 PO; +FOLI0.4T5 PO; +LEXA1TAB2 PO; +TAB-TAB3 PO
[2024-04-05 12:44] LABS: HEMOGLOBIN A1c 6.8 % (4.0-6.0)
[2024-04-05 12:48] LABS: THYROID STIMULATING HORMONE 1.126 uIU/ML (0.55-4.78)
[2024-04-05 13:16] LABS: ALBUMIN 3.2 G/DL (3.2-5.2); BILIRUBIN,TOTAL 0.5 MG/DL (0.3-1.2); CALCIUM LEVEL 9.7 MG/DL (8.3-10.6); CHOLESTEROL RISK RATIO 3.73 (<5); CREATININE FOR GFR 2.04 MG/DL (0.55-1.30); GLOMERULAR FILTRATION RATE 25.6 (>39); HDL CHOLESTEROL 38.6 MG/DL (>40); LDL CHOLESTEROL 82.6 MG/DL (<100); NON-HDL-C 105.4 MG/DL; POTASSIUM SERUM 3.9 MMOL/L (3.5-5.1); TOTAL PROTEIN 6.2 G/DL (5.7-8.2)
== END ==
PROVIDERS: ATTEND Student in an Organized Health Care Education/Training Program
DX: E11.22 Type 2 diabetes mellitus with diabetic chronic kidney disease (principal); N18.9 Chronic kidney disease, unspecified; E03.9 Hypothyroidism, unspecified; M81.0 Age-related osteoporosis without current pathological fracture

== ENCOUNTER → 2024-04-19 | Outpatient (REF) | payer MEDICARE, MEDICAID, OTHER ==
[2024-04-19 10:35] LABS: BASO # 0.1 10^3/uL (0.0-0.2); BASO % 0.5 % (0.0-1.0); EOS # 0.2 10^3/uL (0.0-0.5); EOS % 2.4 % (0.0-3.0); HEMATOCRIT 38.8 % (36.0-47.0); LYMPH # 1.4 10^3/uL (1.5-5.0); LYMPH % 15.2 % (24.0-44.0); MEAN CORPUSCULAR HEMOGLOBIN 31.5 pg (27.0-33.0); MEAN CORPUSCULAR HGB CONC 30.9 g/dl (32.0-36.5); MEAN CORPUSCULAR VOLUME 101.8 fl (80.0-96.0); MONO # 0.7 10^3/uL (0.0-0.8); MONO % 7.4 % (2.0-8.0); NEUTROPHILS % 74.1 % (36.0-66.0); PLATELET COUNT, AUTOMATED 330 10^3/uL (150-450); RED BLOOD COUNT 3.81 10^6/uL (4.00-5.40); WHITE BLOOD COUNT 9.4 10^3/uL (4.0-10.0)
[2024-04-19 10:58] LABS: ALBUMIN 3.5 G/DL (3.2-5.2); CALCIUM LEVEL 9.4 MG/DL (8.3-10.6); CREATININE FOR GFR 1.64 MG/DL (0.55-1.30); PHOSPHORUS LEVEL 3.5 MG/DL (2.4-5.1); POTASSIUM SERUM 4.5 MMOL/L (3.5-5.1)
[2024-04-19 11:02] LABS: HEMOGLOBIN A1c 6.4 % (4.0-6.0)
[2024-04-19 17:14] LABS: PTH INTACT 114.9 PG/ML (18.5-88.0)
== END ==
PROVIDERS: ATTEND Internal Medicine Nephrology
DX: N17.9 Acute kidney failure, unspecified (principal); N25.81 Secondary hyperparathyroidism of renal origin; E11.22 Type 2 diabetes mellitus with diabetic chronic kidney disease; N18.9 Chronic kidney disease, unspecified; D63.1 Anemia in chronic kidney disease

== ENCOUNTER 2024-05-02 17:23 | Emergency (ER) | payer MEDICARE, MEDICAID ==
[~2024-05-02] VITALS: Ht 152.4 cm; Wt 84.1 kg
[2024-05-02 20:05] VITALS: BP 108/55; TEMP 100.6; O2SAT 95
[2024-05-02] MEDS ORDERED: BENZ200C70 PO (20:10)
[2024-05-02] MEDS: BENZONATATE 100MG CAPSULE PO ONE (20:22)
[2024-05-02] MEDS: IBUPROFEN 600MG TAB PO ONE (20:22)
== END 2024-05-02 20:28 | disposition home or self-care (01) ==
LOC: M ED 17:23 → EDBD 17:23 → M ED 20:28
DX: J06.9 Acute upper respiratory infection, unspecified (principal); K21.9 Gastro-esophageal reflux disease without esophagitis; E11.9 Type 2 diabetes mellitus without complications; I10 Essential (primary) hypertension; E03.9 Hypothyroidism, unspecified; E78.5 Hyperlipidemia, unspecified; Z88.1 Allergy status to other antibiotic agents; Z88.5 Allergy status to narcotic agent; Z79.1 Long term (current) use of non-steroidal anti-inflammatories (NSAID); Z79.51 Long term (current) use of inhaled steroids; Z79.01 Long term (current) use of anticoagulants; Z79.2 Long term (current) use of antibiotics; Z79.84 Long term (current) use of oral hypoglycemic drugs; Z79.4 Long term (current) use of insulin; Z79.899 Other long term (current) drug therapy; Z79.810 Long term (current) use of selective estrogen receptor modulators (SERMs)

== ENCOUNTER → 2024-06-21 | Outpatient (CLI) | payer MEDICARE, MEDICAID ==
[~2024-06-21] MED LIST changes: +BENZ200C70 PO
== END ==
LOC: M RAD 09:55
PROVIDERS: ATTEND Student in an Organized Health Care Education/Training Program
DX: F17.211 Nicotine dependence, cigarettes, in remission (principal); R91.1 Solitary pulmonary nodule; J98.11 Atelectasis; K44.9 Diaphragmatic hernia without obstruction or gangrene; I31.8 Other specified diseases of pericardium

== ENCOUNTER → 2024-06-22 | Outpatient (CLI) | payer MEDICARE, MEDICAID | LOC: M RAD 07:45 | PROVIDERS: ATTEND Student in an Organized Health Care Education/Training Program | DX: Z00.00 Encounter for general adult medical examination without abnormal findings (principal); G47.33 Obstructive sleep apnea (adult) (pediatric) ==

== ENCOUNTER → 2024-07-15 | Outpatient (CLI) | payer MEDICARE, MEDICAID | LOC: M CARPUL 12:18 | PROVIDERS: ATTEND Student in an Organized Health Care Education/Training Program | DX: I50.32 Chronic diastolic (congestive) heart failure (principal) ==

== ENCOUNTER → 2024-08-20 | Outpatient (REF) | payer MEDICARE, MEDICAID, OTHER ==
[~2024-08-20] MED LIST changes: +BUPR150T15 PO; -BUPR1TAB53 PO; -LEVO200C PO; +LEVO200C2 PO
[2024-08-20 08:43] LABS: HEMOGLOBIN A1c 5.9 % (4.0-6.0)
[2024-08-20 08:51] LABS: FOLATE > 24.0 NG/ML (>5.4)
[2024-08-20 08:52] LABS: VITAMIN B12 LEVEL 1488 PG/ML (211-911)
[2024-08-20 08:53] LABS: BLOOD UREA NITROGEN 32 MG/DL (9-23); CALCIUM LEVEL 9.1 MG/DL (8.3-10.6); CARBON DIOXIDE LEVEL 27 MMOL/L (20-31); CHLORIDE LEVEL 107 MMOL/L (98-107); CREATININE FOR GFR 1.91 MG/DL (0.55-1.30); GLOMERULAR FILTRATION RATE 27.9 (>39); GLUCOSE, FASTING 101 MG/DL (74-106); POTASSIUM SERUM 4.2 MMOL/L (3.5-5.1); SODIUM LEVEL 144 MMOL/L (136-145)
== END ==
PROVIDERS: ATTEND Student in an Organized Health Care Education/Training Program
DX: E11.22 Type 2 diabetes mellitus with diabetic chronic kidney disease (principal); R20.0 Anesthesia of skin; E53.8 Deficiency of other specified B group vitamins

== ENCOUNTER → 2024-08-25 | Outpatient (REF) | payer MEDICARE, MEDICAID, OTHER ==
[2024-08-25 08:34] LABS: BASO # 0.1 10^3/uL (0.0-0.2); BASO % 0.7 % (0.0-1.0); EOS # 0.3 10^3/uL (0.0-0.5); EOS % 3.1 % (0.0-3.0); HEMATOCRIT 38.6 % (36.0-47.0); HEMOGLOBIN 11.8 g/dl (12.0-15.5); LYMPH % 22.1 % (24.0-44.0); MEAN CORPUSCULAR HEMOGLOBIN 30.9 pg (27.0-33.0); MEAN CORPUSCULAR HGB CONC 30.6 g/dl (32.0-36.5); MONO # 0.8 10^3/uL (0.0-0.8); MONO % 9.1 % (2.0-8.0); NEUTROPHILS # 5.8 10^3/uL (1.5-8.5); NEUTROPHILS % 64.7 % (36.0-66.0); PLATELET COUNT, AUTOMATED 335 10^3/uL (150-450); RED BLOOD COUNT 3.82 10^6/uL (4.00-5.40)
[2024-08-25 09:00] LABS: HEMOGLOBIN A1c 5.4 % (4.0-6.0)
[2024-08-25 09:07] LABS: ALBUMIN 3.7 G/DL (3.2-5.2); CREATININE FOR GFR 1.86 MG/DL (0.55-1.30); GLOMERULAR FILTRATION RATE 28.8 (>39); POTASSIUM SERUM 4.1 MMOL/L (3.5-5.1); PTH INTACT 184.7 PG/ML (18.5-88.0)
== END ==
PROVIDERS: ATTEND Internal Medicine Nephrology
DX: N17.9 Acute kidney failure, unspecified (principal); D64.9 Anemia, unspecified; N25.81 Secondary hyperparathyroidism of renal origin; E11.22 Type 2 diabetes mellitus with diabetic chronic kidney disease

== ENCOUNTER → 2024-10-11 | Outpatient (REF) | payer MEDICARE, MEDICAID ==
[2024-10-11 09:51] LABS: CREATININE FOR GFR 2.13 MG/DL (0.55-1.30); GLOMERULAR FILTRATION RATE 24.5 (>39); POTASSIUM SERUM 4.4 MMOL/L (3.5-5.1)
== END ==
PROVIDERS: ATTEND Student in an Organized Health Care Education/Training Program
DX: E11.22 Type 2 diabetes mellitus with diabetic chronic kidney disease (principal); N18.9 Chronic kidney disease, unspecified

== ENCOUNTER → 2024-10-15 | Outpatient (REF) | payer MEDICARE, MEDICAID ==
[2024-10-15 07:18] LABS: BASO # 0.1 10^3/uL (0.0-0.2); BASO % 0.6 % (0.0-1.0); EOS # 0.2 10^3/uL (0.0-0.5); EOS % 2.6 % (0.0-3.0); HEMOGLOBIN 11.2 g/dl (12.0-15.5); LYMPH # 2.2 10^3/uL (1.5-5.0); MEAN CORPUSCULAR HEMOGLOBIN 31.5 pg (27.0-33.0); MEAN CORPUSCULAR VOLUME 98.6 fl (80.0-96.0); MONO # 0.7 10^3/uL (0.0-0.8); MONO % 8.7 % (2.0-8.0); NEUTROPHILS # 4.9 10^3/uL (1.5-8.5); NEUTROPHILS % 60.7 % (36.0-66.0); PLATELET COUNT, AUTOMATED 316 10^3/uL (150-450); RED BLOOD COUNT 3.55 10^6/uL (4.00-5.40); WHITE BLOOD COUNT 8.1 10^3/uL (4.0-10.0)
[2024-10-15 07:41] LABS: ALBUMIN 3.4 G/DL (3.2-5.2); CREATININE FOR GFR 2.22 MG/DL (0.55-1.30); GLOMERULAR FILTRATION RATE 23.3 (>39); PHOSPHORUS LEVEL 4.6 MG/DL (2.4-5.1); POTASSIUM SERUM 3.7 MMOL/L (3.5-5.1)
[2024-10-15 07:43] LABS: PTH INTACT 11.8 PG/ML (18.5-88.0)
== END ==
PROVIDERS: ATTEND Internal Medicine Nephrology
DX: N17.9 Acute kidney failure, unspecified (principal); D64.9 Anemia, unspecified; N25.81 Secondary hyperparathyroidism of renal origin

== ENCOUNTER → 2024-10-18 | Outpatient (REF) | payer MEDICARE, MEDICAID ==
[2024-10-18 10:35] LABS: CALCIUM LEVEL 10.8 MG/DL (8.3-10.6); CREATININE FOR GFR 2.42 MG/DL (0.55-1.30); POTASSIUM SERUM 4.3 MMOL/L (3.5-5.1)
== END ==
PROVIDERS: ATTEND Student in an Organized Health Care Education/Training Program
DX: E11.22 Type 2 diabetes mellitus with diabetic chronic kidney disease (principal); N18.9 Chronic kidney disease, unspecified

== ENCOUNTER → 2024-10-25 | Outpatient (REF) | payer MEDICARE, MEDICAID ==
[2024-10-25 11:33] LABS: ALBUMIN 3.5 G/DL (3.2-5.2); CALCIUM LEVEL 8.7 MG/DL (8.3-10.6); CREATININE FOR GFR 1.85 MG/DL (0.55-1.30); PHOSPHORUS LEVEL 3.2 MG/DL (2.4-5.1); POTASSIUM SERUM 4.7 MMOL/L (3.5-5.1)
== END ==
PROVIDERS: ATTEND Internal Medicine Nephrology
DX: N17.9 Acute kidney failure, unspecified (principal)

== ENCOUNTER → 2024-11-10 | Outpatient (REF) | payer MEDICARE, MEDICAID ==
[2024-11-10 09:15] LABS: BASO # 0.1 10^3/uL (0.0-0.2); BASO % 1.0 % (0.0-1.0); EOS # 0.2 10^3/uL (0.0-0.5); EOS % 2.6 % (0.0-3.0); LYMPH # 1.9 10^3/uL (1.5-5.0); LYMPH % 25.1 % (24.0-44.0); MONO # 0.7 10^3/uL (0.0-0.8); MONO % 9.4 % (2.0-8.0); NEUTROPHILS # 4.5 10^3/uL (1.5-8.5); NEUTROPHILS % 61.5 % (36.0-66.0); PLATELET COUNT, AUTOMATED 309 10^3/uL (150-450)
[2024-11-10 09:39] LABS: CALCIUM LEVEL 9.4 MG/DL (8.3-10.6); CARBON DIOXIDE LEVEL 26.0 MMOL/L (20-31); CHLORIDE LEVEL 108.0 MMOL/L (98-107); CREATININE FOR GFR 1.94 MG/DL (0.55-1.30); GLOMERULAR FILTRATION RATE 27.4 (>39); PHOSPHORUS LEVEL 4.5 MG/DL (2.4-5.1); POTASSIUM SERUM 4.9 MMOL/L (3.5-5.1); SODIUM LEVEL 144.0 MMOL/L (136-145)
[2024-11-10 09:40] LABS: PTH INTACT 60.4 PG/ML (18.5-88.0)
== END ==
PROVIDERS: ATTEND Internal Medicine Nephrology
DX: N17.9 Acute kidney failure, unspecified (principal); N25.81 Secondary hyperparathyroidism of renal origin; D64.9 Anemia, unspecified

== ENCOUNTER → 2024-11-12 | Outpatient (REF) | payer MEDICARE, MEDICAID ==
[2024-11-12 08:24] LABS: BASO # 0.1 10^3/uL (0.0-0.2); BASO % 0.9 % (0.0-1.0); EOS # 0.2 10^3/uL (0.0-0.5); EOS % 2.2 % (0.0-3.0); LYMPH # 1.7 10^3/uL (1.5-5.0); LYMPH % 22.5 % (24.0-44.0); MONO # 0.8 10^3/uL (0.0-0.8); MONO % 10.7 % (2.0-8.0); NEUTROPHILS # 4.8 10^3/uL (1.5-8.5); NEUTROPHILS % 63.3 % (36.0-66.0); PLATELET COUNT, AUTOMATED 272 10^3/uL (150-450)
[2024-11-12 08:48] LABS: CALCIUM LEVEL 8.7 MG/DL (8.3-10.6); CARBON DIOXIDE LEVEL 26.0 MMOL/L (20-31); CHLORIDE LEVEL 109.0 MMOL/L (98-107); CREATININE FOR GFR 1.98 MG/DL (0.55-1.30); GLOMERULAR FILTRATION RATE 26.7 (>39); PHOSPHORUS LEVEL 4.0 MG/DL (2.4-5.1); POTASSIUM SERUM 4.9 MMOL/L (3.5-5.1); SODIUM LEVEL 146.0 MMOL/L (136-145)
[2024-11-12 08:49] LABS: PTH INTACT 63.3 PG/ML (18.5-88.0)
== END ==
PROVIDERS: ATTEND Internal Medicine Nephrology
DX: N17.9 Acute kidney failure, unspecified (principal); D64.9 Anemia, unspecified; N25.81 Secondary hyperparathyroidism of renal origin

== ENCOUNTER → 2024-12-03 | Outpatient (CLI) | payer MEDICARE, MEDICAID | LOC: M PLAIMG 14:10 | PROVIDERS: ATTEND Student in an Organized Health Care Education/Training Program | DX: M25.511 Pain in right shoulder (principal) ==

== ENCOUNTER → 2025-01-05 | Outpatient (REF) | payer MEDICARE, MEDICAID ==
[~2025-01-05] MED LIST changes: -EZET10TA21 PO; +EZET10TA57 PO; -FOLI0.4T5 PO; +FOLI400T2 PO
[2025-01-05 10:07] LABS: BASO # 0.1 10^3/uL (0.0-0.2); BASO % 0.8 % (0.0-1.0); EOS # 0.2 10^3/uL (0.0-0.5); EOS % 3.0 % (0.0-3.0); LYMPH # 1.8 10^3/uL (1.5-5.0); LYMPH % 23.2 % (24.0-44.0); MONO # 0.7 10^3/uL (0.0-0.8); MONO % 8.6 % (2.0-8.0); NEUTROPHILS # 4.9 10^3/uL (1.5-8.5); NEUTROPHILS % 64.1 % (36.0-66.0); PLATELET COUNT, AUTOMATED 328 10^3/uL (150-450)
[2025-01-05 10:33] LABS: CALCIUM LEVEL 9.6 MG/DL (8.3-10.6); CARBON DIOXIDE LEVEL 28.0 MMOL/L (20-31); CHLORIDE LEVEL 107.0 MMOL/L (98-107); CREATININE FOR GFR 1.86 MG/DL (0.55-1.30); GLOMERULAR FILTRATION RATE 28.6 (>39); PHOSPHORUS LEVEL 3.5 MG/DL (2.4-5.1); POTASSIUM SERUM 4.3 MMOL/L (3.5-5.1); SODIUM LEVEL 147.0 MMOL/L (136-145)
[2025-01-05 10:34] LABS: PTH INTACT 60.1 PG/ML (18.5-88.0)
== END ==
PROVIDERS: ATTEND Internal Medicine Nephrology
DX: N17.9 Acute kidney failure, unspecified (principal); D64.9 Anemia, unspecified; N25.81 Secondary hyperparathyroidism of renal origin

== ENCOUNTER → 2025-02-18 | Outpatient (REF) | payer MEDICARE, MEDICAID ==
[2025-02-18 10:56] LABS: BASO # 0.1 10^3/uL (0.0-0.2); BASO % 0.8 % (0.0-1.0); EOS # 0.2 10^3/uL (0.0-0.5); EOS % 2.7 % (0.0-3.0); LYMPH # 1.5 10^3/uL (1.5-5.0); LYMPH % 17.5 % (24.0-44.0); MONO # 0.9 10^3/uL (0.0-0.8); MONO % 10.0 % (2.0-8.0); NEUTROPHILS # 5.8 10^3/uL (1.5-8.5); NEUTROPHILS % 68.6 % (36.0-66.0); PLATELET COUNT, AUTOMATED 304 10^3/uL (150-450)
[2025-02-18 11:28] LABS: CALCIUM LEVEL 9.1 MG/DL (8.3-10.6); CARBON DIOXIDE LEVEL 30.0 MMOL/L (20-31); CHLORIDE LEVEL 104.0 MMOL/L (98-107); CREATININE FOR GFR 1.83 MG/DL (0.55-1.30); GLOMERULAR FILTRATION RATE 29.2 (>39); PHOSPHORUS LEVEL 4.2 MG/DL (2.4-5.1); POTASSIUM SERUM 4.9 MMOL/L (3.5-5.1); PTH INTACT 49.6 PG/ML (18.5-88.0); SODIUM LEVEL 144.0 MMOL/L (136-145)
== END ==
PROVIDERS: ATTEND Internal Medicine Nephrology
DX: N17.9 Acute kidney failure, unspecified (principal); D64.9 Anemia, unspecified; N25.81 Secondary hyperparathyroidism of renal origin

== ENCOUNTER → 2025-03-15 | Outpatient (CLI) | payer MEDICARE | LOC: M CLY 17:39 | PROVIDERS: ATTEND Student in an Organized Health Care Education/Training Program | DX: R09.02 Hypoxemia (principal); R10.11 Right upper quadrant pain; N63.0 Unspecified lump in unspecified breast; Z53.9 Procedure and treatment not carried out, unspecified reason ==

== ENCOUNTER → 2025-03-24 | Outpatient (CLI) | payer MEDICARE | LOC: M WHC 10:36 | PROVIDERS: ATTEND Student in an Organized Health Care Education/Training Program | DX: Z53.9 Procedure and treatment not carried out, unspecified reason (principal) ==

== ENCOUNTER → 2025-03-25 | Outpatient (REF) | payer MEDICARE ==
[2025-03-25 10:13] LABS: BASO # 0.0 10^3/uL (0.0-0.2); BASO % 0.4 % (0.0-1.0); EOS # 0.4 10^3/uL (0.0-0.5); EOS % 4.2 % (0.0-3.0); LYMPH # 1.7 10^3/uL (1.5-5.0); LYMPH % 18.3 % (24.0-44.0); MONO # 0.9 10^3/uL (0.0-0.8); MONO % 9.4 % (2.0-8.0); NEUTROPHILS # 6.4 10^3/uL (1.5-8.5); NEUTROPHILS % 67.4 % (36.0-66.0); PLATELET COUNT, AUTOMATED 333 10^3/uL (150-450)
[2025-03-25 10:31] LABS: ALT/SGPT 23.0 U/L (7.0-40); AST/SGOT 23.0 U/L (<34); CALCIUM LEVEL 9.1 MG/DL (8.3-10.6); CARBON DIOXIDE LEVEL 25.0 MMOL/L (20-31); CHLORIDE LEVEL 106.0 MMOL/L (98-107); CREATININE FOR GFR 1.94 MG/DL (0.55-1.30); GLOMERULAR FILTRATION RATE 27.2 (>39); POTASSIUM SERUM 4.5 MMOL/L (3.5-5.1); SODIUM LEVEL 143.0 MMOL/L (136-145)
[2025-03-25 10:33] LABS: FREE T4 1.0 NG/DL (0.89-1.76)
[2025-03-25 10:45] LABS: ESTIMATED AVERAGE GLUCOSE 131.0 MG/DL (60-110)
== END ==
PROVIDERS: ATTEND Student in an Organized Health Care Education/Training Program
DX: R10.11 Right upper quadrant pain (principal); E03.9 Hypothyroidism, unspecified; E11.22 Type 2 diabetes mellitus with diabetic chronic kidney disease

== ENCOUNTER → 2025-04-05 | Outpatient (CLI) | payer MEDICARE | LOC: M WUC 12:53 | DX: R06.02 Shortness of breath (principal) ==

== ENCOUNTER → 2025-05-03 | Outpatient (CLI) | payer MEDICARE | LOC: M WHC 07:56 | PROVIDERS: ATTEND Student in an Organized Health Care Education/Training Program | DX: R10.11 Right upper quadrant pain (principal) ==